=== PATIENT | male | born 1935 ===

== ENCOUNTER 2016-07-15 12:59 | Inpatient (IN) | payer MEDICAID ==
--- NOTE | 2016-07-15 13:49 | C.PDOC ---
History Of Present Illness 81 y/o male sent by [facility] for psych evaluation. He has medical history of Asthma, CHF, COPD, DM, HTN Thyroid dz. Pt was reported saying people are trying to kill him. Pt stating he wants to on evaluation in ED. He was recently evaluated at [facility] and transferred to the rehab. he was there less that 24 hours and was apparently transferred for agitation. Discussed with Dr Pitt who gave all the verbal orders on the transferred records but she states she has not seen him and does not know why he was transferred here. He tells me he is not suicidal and want to live. He answers questions appropriately and is quiet and cooperative in the ED. Poor historian. No other complaints at this time. Time Seen by Provider: 07/15/16 13:20 Chief Complaint (Nursing): Psychiatric Evaluation History Per: Patient Onset/Duration Of Symptoms: Hrs Current Symptoms Are (Timing): Still Present Severity: Mild Associated Symptoms: Suicidal Thoughts Involuntary Hold By: None Recent travel outside of the [place]: No Past Medical History Reviewed: Historical Data, Nursing Documentation, Vital Signs Vital Signs: Last Vital Signs Temp 97.8 F 07/15/16 16:07 Pulse 78 07/15/16 16:16 Resp 22 07/15/16 16:16 BP 124/62 07/15/16 16:16 Pulse Ox 96 07/15/16 16:16 - Medical History PMH: Arthritis, Asthma, CHF, COPD, Depression, HTN Other PMH: Thyroid Dz Surgical History: Appendectomy Family History: States: Unknown Family Hx - Social History Hx Tobacco Use: No Hx Alcohol Use: No Hx Substance Use: No Review Of Systems Constitutional: Negative for: Fever Cardiovascular: Negative for: Chest Pain Respiratory: Negative for: Shortness of Breath Gastrointestinal: Negative for: Vomiting Psych: Positive for: Suicidal ideation Physical Exam - Physical Exam Appears: Non-toxic, No Acute Distress, Other (cachectic) Skin: Warm, Dry, No Rash Head: Atraumatic, Normacephalic Neck: Normal, Normal ROM, Supple Chest: Symmetrical Cardiovascular: Rhythm Regular, No Murmur Respiratory: Normal Breath Sounds, No Rales, No Rhonchi, No Wheezing Gastrointestinal/Abdominal: Normal Exam, Soft, No Tenderness Extremity: Bilateral: Atraumatic Neurological/Psych: Oriented x3 ED Course And Treatment - Laboratory Results Result Diagrams: 07/15/16 14:04 07/15/16 14:04 Lab Interpretation: No Acute Changes Interpretation Of Abnormal: Glucose 41, repeated, 81. Patient remains awake and asymptomatic. Given food and drink. ECG: Interpreted By Me ECG Rhythm: L BBB O2 Sat by Pulse Oximetry: 96 (room air) Pulse Ox Interpretation: Normal Progress Note: Plan: EKG, UA, labs Reevaluation Time: 20:02 Reassessment Condition: Improved (Patient remains comfortable and cooperative in ED.) - Physician Consult Information Time Consulting Physician Contacted: 20:02 Physician Contacted: Perla Solis Outcome Of Conversation: Patient to be keept overnight on observation and arrangements made for follow up care and medication administration in the morning. Disposition - Disposition Disposition: HOSPITALIZED Disposition Time: 19:56 Condition: STABLE - Clinical Impression Clinical Impression: Diabetes, Cardiac disease, COPD (chronic obstructive pulmonary disease), Depression - Scribe Statement The provider has reviewed the documentation as recorded by the Anup Greer Provider Attestation: All medical record entries made by the Anup were at my direction and personally dictated by me. I have reviewed the chart and agree that the record accurately reflects my personal performance of the history, physical exam, medical decision making, and the department course for this patient. I have also personally directed, reviewed, and agree with the discharge instructions and disposition.
[2016-07-15 14:10] LABS: BASO % 0.6 % (0.0-2.0); EOS % 0.1 % (0.0-4.0); HEMATOCRIT 34.3 % (35.0-51.0); MEAN CELL VOLUME 84.3 fL (80.0-94.0); MEAN CORPUSCULAR HEMOGLOBIN 26.8 pg (27.0-31.0); MEAN CORPUSCULAR HGB CONC 31.8 g/dL (33.0-37.0); MEAN PLATELET VOLUME 8.4 fL (7.2-11.7); MONO # 0.4 K/uL (0.0-0.8); MONO % 4.7 % (0.0-10.0); RED CELL DISTRIBUTION WIDTH 20.3 % (11.5-14.5); WHITE BLOOD COUNT 7.6 K/uL (4.8-10.8)
[2016-07-15 14:16] LABS: CHLORIDE 101 mmol/L (98-107); SODIUM 136 mmol/L (132-148)
[2016-07-15 14:17] LABS: POTASSIUM 4.4 mmol/L (3.6-5.2)
[2016-07-15 14:18] LABS: GFR AFRICAN-AMERICAN > 60
[2016-07-15 14:19] LABS: ALB/GLOB RATIO 0.8 (1.0-2.1); ALKALINE PHOSPHATASE 56 U/L (38-126); ALT/SGPT 22 U/L (21-72); AST/SGOT 18 U/L (17-59); BILIRUBIN,TOTAL 0.6 mg/dL (0.2-1.3); BLOOD UREA NITROGEN 21 mg/dL (9-20); CARBON DIOXIDE 25 mmol/L (22-30)
[2016-07-15 14:20] LABS: ALCOHOL SERUM < 10 mg/dl (0-10); CALCIUM 8.6 mg/dl (8.6-10.4)
[2016-07-15 14:21] LABS: RBC URINE < 1 /hpf (0-3); URINE BILIRUBIN NEGATIVE (NEGATIVE); URINE BLOOD NEGATIVE (NEGATIVE); URINE COLOR Yellow (YELLOW); URINE GLUCOSE (UA) NORMAL (Normal); URINE KETONE NEGATIVE (NEGATIVE); URINE LEUKOCYTE ESTERASE NEG Leu/uL (Negative); URINE PROTEIN NEGATIVE (NEGATIVE); URINE UROBILINOGEN NORMAL mg/dL (0.2-1.0); WBC URINE 1 /hpf (0-5)
[2016-07-15 14:49] LABS: GLUCOSE,RANDOM 41 mg/dL (75-110)
[2016-07-16] MEDS: (Lantus) Insulin Glargine, Recombinant SC SCH ×3 (01:44→22:33)
[2016-07-16] MEDS: Albuterol-Ipratrop 3 mg / 0.5 (3 ml) UD INH SCH ×4 (03:02→20:47)
[2016-07-16] MEDS: Levothyroxine 25 MCG TAB PO SCH (06:10)
[2016-07-16] MEDS: (Novolog) Insulin Aspart, Recombinant 100 u/ml 10 ml vial SC SCH ×4 (07:12→22:00)
--- NOTE | 2016-07-16 09:42 | RAD ---
HISTORY: sob COMPARISON: Not available FINDINGS: LUNGS: Patchy opacity at right lung base. Diffuse nodular opacity throughout right lung. Few small nodular opacities in left upper lobe, possibly calcified suggesting old granulomatous disease. Consider further evaluation with computed tomography. PLEURA: Hazy opacity at right costophrenic angle suggests small pleural effusion. No left pleural effusion. No pneumothorax. CARDIOVASCULAR: Normal. OSSEOUS STRUCTURES: No significant abnormalities. VISUALIZED UPPER ABDOMEN: Normal. OTHER FINDINGS: None. IMPRESSION: Patchy opacity at right base. Possible small right pleural effusion. Nodular opacity throughout right lung. Probable calcified granulomas left upper lobe. Consider further evaluation with computed tomography.
[2016-07-16] MEDS: Pantoprazole 40 mg EC Tab PO SCH (09:45)
[2016-07-16] MEDS: Calcium Carbonate 500 mg Chewable Antacid Tab PO SCH ×2 (09:46→17:46)
[2016-07-16] MEDS ORDERED: Enoxaparin 40 mg Syringe SC SCH (10:00)
--- NOTE | 2016-07-16 10:16 | CP.PCM.HP ---
History of Present Illness - History of Present Illness History of Present Illness: 81 years old male patient with past medical history of asthma, CHF, COPD, hypertension transferred from long-term for psych evaluation. Patient was saying about trying to kill him. On ED evaluation patient states that he wants to . Patient denies hearing voices, racing thoughts, hallucination. Patient has complaint of fatigue, decreased concentration. When questioned about suicidal ideation patient states he was never suicidal. No any past psychiatric hospitalization No any other active complaints. Present on Admission - Present on Admission Any Indicators Present on Admission: No Past Patient History - Past Medical History & Family History Past Medical History?: Yes - Past Social History Smoking Status: Unknown If Ever Smoked - CARDIAC Hx Congestive Heart Failure: Yes Hx Hypertension: Yes - PULMONARY Hx Asthma: Yes Hx Chronic Obstructive Pulmonary Disease (COPD): Yes - NEUROLOGICAL Hx Alzheimer's Disease: Yes Hx Dementia: Yes - ENDOCRINE/METABOLIC Hx Diabetes Mellitus Type 2: Yes Hx Hypothyroidism: Yes - MUSCULOSKELETAL/RHEUMATOLOGICAL Hx Arthritis: Yes Hx Falls: No - PSYCHIATRIC Hx Depression: Yes Hx Substance Use: No - SURGICAL HISTORY Hx Appendectomy: Yes - ANESTHESIA Hx Anesthesia: Yes Hx Anesthesia Reactions: No Hx Malignant Hyperthermia: No Has any member of the family had a problem w/ anesthesia?: No Meds Allergies/Adverse Reactions: Allergies Allergy/AdvReac Type Severity Reaction Status Date / Time No Known Allergies Allergy Unverified 07/15/16 13:18 Physical Exam - Constitutional Appears: Well - Head Exam Head Exam: ATRAUMATIC, NORMAL INSPECTION, NORMOCEPHALIC - Eye Exam Eye Exam: EOMI, Normal appearance, PERRL Pupil Exam: NORMAL ACCOMODATION, PERRL - ENT Exam ENT Exam: Mucous Membranes Moist, Normal Exam - Neck Exam Neck exam: Positive for: Normal Inspection - Respiratory Exam Respiratory Exam: Decreased Breath Sounds - Cardiovascular Exam Cardiovascular Exam: REGULAR RHYTHM, +S1, +S2 - GI/Abdominal Exam GI & Abdominal Exam: Diminished Bowel Sounds, Soft - Rectal Exam Rectal Exam: Deferred Results - Vital Signs Recent Vital Signs: Last Vital Signs Temp 97.5 F L 07/16/16 08:00 Pulse 87 07/16/16 08:00 Resp 20 07/16/16 08:00 BP 126/71 07/16/16 08:00 Pulse Ox 96 07/16/16 08:00 - Labs Result Diagrams: 10/28/16 06:40 10/28/16 06:36 Labs: Laboratory Results - last 24 hr 07/16/16 07/16/16 07/16/16 02:00 06:10 06:32 POC Glucose (mg/dL) 57 L 71 Total Creatine Kinase 39 L CK-MB (Mass) 1.55 Troponin I, Quant 0.0440 Assessment & Plan (1) Abnormal CXR (chest x-ray) Status: Acute (2) COPD (chronic obstructive pulmonary disease) Status: Acute (3) COPD exacerbation Status: Acute (4) Cardiac disease Status: Acute (5) Compression fracture of L2 Status: Acute (6) Depression Status: Acute (7) Diabetes Status: Acute - Assessment and Plan (Free Text) Plan: meds and labs reviewed psych consult antidepressants social work referral duoneb asp eliquis dvt px accucheck
--- NOTE | 2016-07-16 14:22 | CP.PCM.PN ---
Subjective - Date & Time of Evaluation Date of Evaluation: 07/16/16 Time of Evaluation: 09:00 - Subjective Subjective: PGY2 on medicine Dr. Solis service: Pt seen and examined at bedside this morning. Per RN, pt refused telemetry and one set of JAREK overnight. Pt also refuse to recheck fingerstick after given orange juice for sugar of 57. Pt currently has no complaints and denied suicidal ideation. Pt is poor historian and does not know why he is on certain medications. Pt said he lives by himself in [place]. No other complaints at the moment. Objective - Vital Signs/Intake and Output Vital Signs (last 24 hours): Temp Pulse Resp BP Pulse Ox 97.5 F L 87 20 126/71 96 07/16/16 08:00 07/16/16 08:00 07/16/16 08:00 07/16/16 08:00 07/16/16 08:00 Intake and Output: 07/16/16 07/16/16 06:59 18:59 Output Total 150 Balance -150 - Medications Medications: Current Medications Albuterol/Ipratropium (Duoneb 3 Mg/0.5 Mg (3 Ml) Ud) 3 ml INH RQ6 [facility] Last Admin: 07/16/16 13:05 Dose: 3 ml Apixaban (Eliquis) 2.5 mg PO DAILY [facility] Last Admin: 07/16/16 09:45 Dose: 2.5 mg Aspirin (Aspirin Chewable) 81 mg PO DAILY [facility] Last Admin: 07/16/16 09:45 Dose: 81 mg Calcium Carbonate (Tums) 500 mg PO BID [facility] Last Admin: 07/16/16 09:46 Dose: 500 mg Enoxaparin Sodium (Lovenox) 40 mg SC DAILY [facility] Last Admin: 07/16/16 09:46 Dose: 40 mg Ferrous Sulfate (Feosol) 325 mg PO DAILY [facility] Last Admin: 07/16/16 09:45 Dose: 325 mg Insulin Aspart (Novolog) 0 unit SC ACHS [facility] PRN Reason: Protocol Last Admin: 07/16/16 11:45 Dose: Not Given Insulin Glargine (Lantus) 10 unit SC HS [facility] Last Admin: 07/16/16 01:44 Dose: Not Given Levothyroxine Sodium (Synthroid) 37.5 mcg PO DAILY@0630 [facility] Last Admin: 07/16/16 06:10 Dose: 37.5 mcg Metformin HCl (Glucophage) 1,000 mg PO BID [facility] Last Admin: 07/16/16 09:47 Dose: Not Given Mirtazapine (Remeron) 7.5 mg PO [facility] Last Admin: 07/16/16 01:54 Dose: 7.5 mg Pantoprazole Sodium (Protonix Ec Tab) 40 mg PO DAILY [facility] Last Admin: 07/16/16 09:45 Dose: 40 mg Quetiapine Fumarate (Seroquel) 25 mg PO HS [facility] Last Admin: 07/16/16 01:54 Dose: 25 mg Rosuvastatin Calcium (Crestor) 5 mg PO HS [facility] Last Admin: 07/16/16 01:54 Dose: 5 mg Tamsulosin HCl (Flomax) 0.4 mg PO DAILY [facility] Last Admin: 07/16/16 09:45 Dose: 0.4 mg Tiotropium [place] (Spiriva Inhalation Handihaler Device) 1 inhaler INH DAILY [facility] Tramadol HCl (Ultram) 50 mg PO Q12 PRN PRN Reason: Pain, moderate (4-7) Last Admin: 07/16/16 01:53 Dose: 50 mg - Constitutional Appears: Non-toxic, No Acute Distress, Cachectic, Chronically Ill - Head Exam Head Exam: NORMOCEPHALIC - Eye Exam Eye Exam: Normal appearance - Respiratory Exam Respiratory Exam: Clear to Ausculation Bilateral, NORMAL BREATHING PATTERN. absent: Rhonchi, Wheezes - Cardiovascular Exam Cardiovascular Exam: REGULAR RHYTHM, +S1, +S2. absent: Gallop, Rubs - GI/Abdominal Exam GI & Abdominal Exam: Soft, Normal Bowel Sounds. absent: Tenderness - Neurological Exam Neurological Exam: Alert, Awake, Oriented x3 - Psychiatric Exam Psychiatric exam: Normal Mood - Skin Skin Exam: Dry, Intact Assessment and Plan - Assessment and Plan (Free Text) Assessment: Depression Psych Dr. Bajwa consulted, help appreciated. Continue Remeron and Seroquel. DM RISS, accuchecks. Lantus 10U SC HS, Metformin Hypothyroid Continue synthroid. COPD Duoneb q6. Spiriva. Hx of cardiac disease Continue Eliquis, ASA, Crestor. Prophylactic measure Lovenox, Protonix. Social work referral.
--- NOTE | 2016-07-16 15:04 | PCM.PSYCH ---
Initial Psychiatric Evaluation - Initial Psychiatric Evaluation Type of Admission: Voluntary Legal Status: Capacity Chief Complaint (in patient's own words): I am feeling fine Patient's Reaction to Hospitalization: Patient admitted to [facility] from [facility] for COPD, hypertension, and depression. Psychiatry consulted for depression clearance and for suicidal ideation as per ED note. Patient is an 81 year old male who lives in a care home. Patient speaks primarily Indonesian. He states he was transferred from the care home to [facility] for psychiatric evaluation because he believes that the care home staff was trying to steal his belongings. He stated that "they said they lost my dentures and then they found them later." Patient denies hearing voices, seeing hallucinations, or having racing thoughts. He denies feeling like people are out to get him, stating, "I'm not important enough for that." Patient states his "sleep is bad", he has decreased energy, cannot concentrate and focus , has increased fatigue, and difficulty with movement, saying "it takes me 2 hours just to stand up." When questioned about suicidal ideation in the past and present, patient states, "7 people have already asked me this- I am not suicidal and I never was suicidal." Patient is coherent and able to converse with the plate worker with ease. Patient affect is normal, mood is normal. Patient denies any past psychiatric hospitalization or treatment, stating that he does not have any psychiatric issues and his worries stem from his physical health issues. Current Medications: Active Medications Generic Name Dose Route Start Last Admin Trade Name Urielq PRN Reason Stop Dose Admin Albuterol/Ipratropium 3 ml 07/16/16 02:00 07/16/16 13:05 Duoneb 3 Mg/0.5 Mg (3 Ml) Ud INH 3 ml RQ6 [facility] Administration Apixaban 2.5 mg 07/16/16 10:07/16/16 09:45 Eliquis PO 2.5 mg DAILY [facility] Administration Aspirin 81 mg 07/16/16 10:07/16/16 09:45 Aspirin Chewable PO 81 mg DAILY [facility] Administration Calcium Carbonate 500 mg 07/16/16 10:00 07/16/16 09:46 Tums PO 500 mg BID [facility] Administration Enoxaparin Sodium 40 mg 07/16/16 10:07/16/16 09:46 Lovenox SC 40 mg DAILY [facility] Administration Ferrous Sulfate 325 mg 07/16/16 10:00 07/16/16 09:45 Feosol PO 325 mg DAILY [facility] Administration Insulin Aspart 0 unit 07/16/16 07:30 07/16/16 11:45 Novolog SC Not Given ACHS [facility] Protocol Insulin Glargine 10 unit 07/15/16 23:45 07/16/16 01:44 Lantus SC Not Given HS [facility] Levothyroxine Sodium 37.5 mcg 07/16/16 06:30 07/16/16 06:10 Synthroid PO 37.5 mcg DAILY@0630 [facility] Administration Metformin HCl 1,000 mg 07/16/16 10:00 07/16/16 09:47 Glucophage PO Not Given BID [facility] Mirtazapine 7.5 mg 07/15/16 23:45 07/16/16 01:54 Remeron PO 7.5 mg HS [facility] Administration Pantoprazole Sodium 40 mg 07/16/16 10:00 07/16/16 09:45 Protonix Ec Tab PO 40 mg DAILY [facility] Administration Quetiapine Fumarate 25 mg 07/15/16 23:49 07/16/16 01:54 Seroquel PO 25 mg HS [facility] Administration Rosuvastatin Calcium 5 mg 07/15/16 23:45 07/16/16 01:54 Crestor PO 5 mg HS [facility] Administration Tamsulosin HCl 0.4 mg 07/16/16 10:00 07/16/16 09:45 Flomax PO 0.4 mg DAILY [facility] Administration Tiotropium [place] 1 inhaler 07/16/16 10:00 Spiriva Inhalation Handihaler Device INH DAILY [facility] Tramadol HCl 50 mg 07/15/16 23:45 07/16/16 01:53 Ultram PO 50 mg Q12 PRN Administration Pain, moderate (4-7) Past Psychiatric History - Past Psychiatric History Previous Treatment History: None Pertinent Medical Hx (Current Medical&Sleep Prob, Allergies): Allergies Allergy/AdvReac Type Severity Reaction Status Date / Time No Known Allergies Allergy Unverified 07/15/16 13:18 Albuterol/Ipratropium [Duoneb 3 MG/3 Ml-0.5 MG/3 Ml 3 Ml] 3 ml IH Q6H PRN Apixaban [Eliquis] 2.5 mg PO DAILY 07/15/16 Aspirin 81 mg PO DAILY 07/15/16 Calcium Carbonate [Tums] 500 mg PO BID 07/15/16 Ferrous Sulfate [Iron] 325 mg PO DAILY 07/15/16 Insulin Glargine, Recombina [Lantus] 10 unit SC HS 07/15/16 Levothyroxine [Synthroid] 37.5 mcg PO DAILY 07/15/16 MetFORMIN [glucOPHAGE] 1,000 mg PO BID 07/15/16 Mirtazapine 7.5 mg PO HS 07/15/16 Pantoprazole Sodium [Protonix] 40 mg PO DAILY 07/15/16 QUEtiapine [SEROquel] 25 mg PO HS 07/15/16 Simvastatin 20 mg PO DAILY 07/15/16 Tamsulosin [Flomax] 0.4 mg PO HS 07/15/16 Tiotropium [place] Inhaler [Spiriva Inhalation Handihaler Device] 1 inhaler INH DAILY 07/15/16 traMADol [Ultram] 50 mg PO Q12H PRN 07/15/16 Review of Systems - Review of Systems All systems: reviewed and no additional remarkable complaints except - Psychiatric Psychiatric: Depression, Difficulty Concentrating Mental Status Examination - Personal Presentation Personal Presentation: Looks older than stated age - Affect Affect: Constricted - Motor Activity Motor Activity: Calm - Reliability in Providing Information Reliability in Providing Information: Good - Speech Speech: Organized - Mood Mood: Neutral - Formal Thought Process Formal Thought Process: No Impairment - Obsessions/Compulsions Obsessions: No Compulsions: No - Cognitive Functions Orientation: Person, Place, Situation, Time Sensorium: Alert Attention/Concentration: Attentive Abstract Thinking: [place] Estimate of Intelligence: Below average Judgement: Intact, as evidence by: Good judgement, Intact, as evidence by: Insight regarding need for hospitalization - Strength & Assets Inventory Strength & Assets Inventory: Cooperative - Limitations Limitations: Living alone DSM 5 DX - DSM 5 DSM 5 Diagnosis: depressive disorder NOS - Recommended/Plan of Treatment Treatment Recommendations and Plan of Treatment: depressive disorder NOS patient is psychiatrically stable and can be discharge with plan to follow-up with outpatient clinic - Smoking Cessation Smoking Cessation Initiated: No
[2016-07-17] MEDS: Albuterol-Ipratrop 3 mg / 0.5 (3 ml) UD INH SCH ×4 (01:06→20:43)
[2016-07-17] MEDS: Levothyroxine 25 MCG TAB PO SCH (06:25)
[2016-07-17] MEDS: (Novolog) Insulin Aspart, Recombinant 100 u/ml 10 ml vial SC SCH ×4 (07:30→22:05)
[2016-07-17 07:39] LABS: BASO # 0.1 K/uL (0.0-0.2); BASO % 0.9 % (0.0-2.0); EOS # 0.1 K/uL (0.0-0.7); EOS % 0.8 % (0.0-4.0); LYMPH # 1.4 K/uL (1.0-4.3); LYMPH % 19.8 % (20.0-40.0); MEAN CELL VOLUME 84.3 fL (80.0-94.0); MEAN CORPUSCULAR HEMOGLOBIN 27.4 pg (27.0-31.0); MEAN CORPUSCULAR HGB CONC 32.4 g/dL (33.0-37.0); MEAN PLATELET VOLUME 8.2 fL (7.2-11.7); MONO # 0.5 K/uL (0.0-0.8); NRBC % 0.1 % (0.0-2.0); RED CELL DISTRIBUTION WIDTH 20.5 % (11.5-14.5); WHITE BLOOD COUNT 6.9 K/uL (4.8-10.8)
[2016-07-17 07:57] LABS: CHLORIDE 104 mmol/L (98-107); POTASSIUM 4.4 mmol/L (3.6-5.2); SODIUM 140 mmol/L (132-148)
[2016-07-17 07:59] LABS: ALB/GLOB RATIO 0.9 (1.0-2.1); ALKALINE PHOSPHATASE 56 U/L (38-126); ALT/SGPT 16 U/L (21-72); AST/SGOT 17 U/L (17-59); BILIRUBIN,TOTAL 0.7 mg/dL (0.2-1.3); BLOOD UREA NITROGEN 26 mg/dL (9-20); CARBON DIOXIDE 27 mmol/L (22-30); GFR AFRICAN-AMERICAN > 60; TOTAL PROTEIN 6.6 g/dL (6.3-8.3)
[2016-07-17 08:00] LABS: CALCIUM 8.7 mg/dl (8.6-10.4); GLUCOSE,RANDOM 93 mg/dL (75-110)
[2016-07-17] MEDS ORDERED: Pneumococcal 23-Valent Vaccine IM ONE (09:27)
[2016-07-17] MEDS ORDERED: Enoxaparin 40 mg Syringe SC SCH (10:00)
[2016-07-17] MEDS: Calcium Carbonate 500 mg Chewable Antacid Tab PO SCH ×2 (10:30→18:40)
[2016-07-17] MEDS: Pantoprazole 40 mg EC Tab PO SCH (10:30)
--- NOTE | 2016-07-17 14:44 | VASCLAB ---
PROCEDURE: Right Lower Extremity Venous Duplex Exam. HISTORY: suspected DVT PRIORS: None. TECHNIQUE: Right common femoral, femoral, popliteal and posterior tibial, peroneal and great saphenous veins were evaluated. Flow was assessed with color Doppler, compressibility, assessment of phasic flow and augmentation response. Report prepared by JOVI Villegas, RVT FINDINGS: RIGHT: 1. Common Femoral Vein: 1.1. Compressibility - Fully compressible: Thrombus - None: Flow - Phasic: Augmentation -Normal: Reflux - None. 2. Femoral Vein: 2.1. Compressibility - Fully compressible: Thrombus - None: Flow - Phasic: Augmentation -Normal: Reflux - None. 3. Popliteal Vein: 3.1. Compressibility - Fully compressible: Thrombus - None: Flow - Phasic: Augmentation -Normal: Reflux - None. 4. Posterior Tibial Vein: 4.1. Compressibility - : Thrombus - : Flow - : Augmentation -: Reflux - . 5. Peroneal Vein: 5.1. Compressibility - : Thrombus - : Flow - : Augmentation -: Reflux - . 6. Great Saphenous Vein: 6.1. Compressibility - : Thrombus -: Flow - : Augmentation - : Reflux - . OTHER FINDINGS: Patient refused to complete the study. IMPRESSION: No evidence of deep or superficial vein thrombosis of the right lower extremity with excellent venous flow. Normal valve function noted of the right side. Normal venous flow noted in the left common femoral vein.
--- NOTE | 2016-07-17 18:13 | CP.PCM.PN ---
Subjective - Date & Time of Evaluation Date of Evaluation: 07/17/16 Time of Evaluation: 08:40 - Subjective Subjective: clinically same Objective - Vital Signs/Intake and Output Vital Signs (last 24 hours): Temp Pulse Resp BP Pulse Ox 98.0 F 80 20 122/61 95 07/17/16 15:29 07/17/16 15:29 07/17/16 15:29 07/17/16 15:29 07/17/16 15:29 - Medications Medications: Current Medications Albuterol/Ipratropium (Duoneb 3 Mg/0.5 Mg (3 Ml) Ud) 3 ml INH RQ6 [facility] Last Admin: 07/17/16 13:13 Dose: Not Given Apixaban (Eliquis) 2.5 mg PO DAILY [facility] Last Admin: 07/17/16 10:30 Dose: Not Given Aspirin (Aspirin Chewable) 81 mg PO DAILY [facility] Last Admin: 07/17/16 10:29 Dose: Not Given Calcium Carbonate (Tums) 500 mg PO BID [facility] Last Admin: 07/17/16 10:30 Dose: Not Given Ferrous Sulfate (Feosol) 325 mg PO DAILY [facility] Last Admin: 07/17/16 10:30 Dose: Not Given Insulin Aspart (Novolog) 0 unit SC [facility] PRN Reason: Protocol Last Admin: 07/17/16 17:54 Dose: Not Given Insulin Glargine (Lantus) 10 unit SC [facility] Last Admin: 07/16/16 22:33 Dose: Not Given Levothyroxine Sodium (Synthroid) 37.5 mcg PO DAILY@0630 [facility] Last Admin: 07/17/16 06:25 Dose: Not Given Lorazepam (Ativan) 1 mg IVP Q4H PRN PRN Reason: Agitation Last Admin: 07/17/16 10:25 Dose: 1 mg Metformin HCl (Glucophage) 1,000 mg PO BID [facility] Last Admin: 07/17/16 10:30 Dose: Not Given Mirtazapine (Remeron) 7.5 mg PO [facility] Last Admin: 07/16/16 22:33 Dose: Not Given Pantoprazole Sodium (Protonix Ec Tab) 40 mg PO DAILY [facility] Last Admin: 07/17/16 10:30 Dose: Not Given Quetiapine Fumarate (Seroquel) 25 mg PO [facility] Last Admin: 07/16/16 22:33 Dose: Not Given Rosuvastatin Calcium (Crestor) 5 mg PO HS [facility] Last Admin: 07/16/16 22:08 Dose: 5 mg Tamsulosin HCl (Flomax) 0.4 mg PO DAILY [facility] Last Admin: 07/17/16 10:30 Dose: Not Given Tiotropium [place] (Spiriva Inhalation Handihaler Device) 1 inhaler INH DAILY [facility] Tramadol HCl (Ultram) 50 mg PO Q12 PRN PRN Reason: Pain, moderate (4-7) Last Admin: 07/16/16 01:53 Dose: 50 mg - Labs Labs: 07/17/16 07:31 07/17/16 07:31 - Constitutional Appears: Well - Head Exam Head Exam: ATRAUMATIC, NORMAL INSPECTION, NORMOCEPHALIC - Eye Exam Eye Exam: EOMI, Normal appearance, PERRL Pupil Exam: NORMAL ACCOMODATION, PERRL - ENT Exam ENT Exam: Mucous Membranes Moist, Normal Exam - Neck Exam Neck Exam: Full ROM, Normal Inspection. absent: Lymphadenopathy - Respiratory Exam Respiratory Exam: Decreased Breath Sounds - Cardiovascular Exam Cardiovascular Exam: REGULAR RHYTHM, +S1, +S2 - GI/Abdominal Exam GI & Abdominal Exam: Soft, Diminished Bowel Sounds - Rectal Exam Rectal Exam: Deferred Assessment and Plan (1) Abnormal CXR (chest x-ray) Status: Acute (2) COPD (chronic obstructive pulmonary disease) Status: Acute (3) COPD exacerbation Status: Acute (4) Cardiac disease Status: Acute (5) Compression fracture of L2 Status: Acute (6) Depression Status: Acute (7) Diabetes Status: Acute - Assessment and Plan (Free Text) Plan: karlos moseley mirtazapine lovenox duoneb spiriva
--- NOTE | 2016-07-17 18:25 | CP.PCM.PN ---
Subjective - Date & Time of Evaluation Date of Evaluation: 07/17/16 Time of Evaluation: 09:00 - Subjective Subjective: PGY2 on medicine Dr. Solis service: Pt seen and examined. Pt was sleeping and not answering questions, though exam was permitted. Per RN pt refuse blood draws and meds overnight and became agitated. Objective - Vital Signs/Intake and Output Vital Signs (last 24 hours): Temp Pulse Resp BP Pulse Ox 98.0 F 80 20 122/61 95 07/17/16 15:29 07/17/16 15:29 07/17/16 15:29 07/17/16 15:29 07/17/16 15:29 - Medications Medications: Current Medications Albuterol/Ipratropium (Duoneb 3 Mg/0.5 Mg (3 Ml) Ud) 3 ml INH RQ6 [facility] Last Admin: 07/17/16 13:13 Dose: Not Given Apixaban (Eliquis) 2.5 mg PO DAILY [facility] Last Admin: 07/17/16 10:30 Dose: Not Given Aspirin (Aspirin Chewable) 81 mg PO DAILY [facility] Last Admin: 07/17/16 10:29 Dose: Not Given Calcium Carbonate (Tums) 500 mg PO BID [facility] Last Admin: 07/17/16 10:30 Dose: Not Given Ferrous Sulfate (Feosol) 325 mg PO DAILY [facility] Last Admin: 07/17/16 10:30 Dose: Not Given Insulin Aspart (Novolog) 0 unit SC [facility] PRN Reason: Protocol Last Admin: 07/17/16 17:54 Dose: Not Given Insulin Glargine (Lantus) 10 unit SC [facility] Last Admin: 07/16/16 22:33 Dose: Not Given Levothyroxine Sodium (Synthroid) 37.5 mcg PO DAILY@0630 [facility] Last Admin: 07/17/16 06:25 Dose: Not Given Lorazepam (Ativan) 1 mg IVP Q4H PRN PRN Reason: Agitation Last Admin: 07/17/16 10:25 Dose: 1 mg Metformin HCl (Glucophage) 1,000 mg PO BID [facility] Last Admin: 07/17/16 10:30 Dose: Not Given Mirtazapine (Remeron) 7.5 mg PO HS [facility] Last Admin: 07/16/16 22:33 Dose: Not Given Pantoprazole Sodium (Protonix Ec Tab) 40 mg PO DAILY [facility] Last Admin: 07/17/16 10:30 Dose: Not Given Quetiapine Fumarate (Seroquel) 25 mg PO [facility] Last Admin: 07/16/16 22:33 Dose: Not Given Rosuvastatin Calcium (Crestor) 5 mg PO HS [facility] Last Admin: 07/16/16 22:08 Dose: 5 mg Tamsulosin HCl (Flomax) 0.4 mg PO DAILY [facility] Last Admin: 07/17/16 10:30 Dose: Not Given Tiotropium [place] (Spiriva Inhalation Handihaler Device) 1 inhaler INH DAILY [facility] Tramadol HCl (Ultram) 50 mg PO Q12 PRN PRN Reason: Pain, moderate (4-7) Last Admin: 07/16/16 01:53 Dose: 50 mg - Constitutional Appears: Non-toxic, No Acute Distress, Cachectic, Chronically Ill - Head Exam Head Exam: NORMOCEPHALIC - Eye Exam Eye Exam: Normal appearance Pupil Exam: NORMAL ACCOMODATION - Respiratory Exam Respiratory Exam: Clear to Ausculation Bilateral, NORMAL BREATHING PATTERN. absent: Wheezes - Cardiovascular Exam Cardiovascular Exam: REGULAR RHYTHM, +S1, +S2. absent: Gallop, Rubs - GI/Abdominal Exam GI & Abdominal Exam: Soft, Normal Bowel Sounds - Neurological Exam Neurological Exam: Alert, Awake, Oriented x3 - Psychiatric Exam Psychiatric exam: Flat Affect - Skin Skin Exam: Intact Assessment and Plan - Assessment and Plan (Free Text) Assessment: Depression Psych Dr. Bajwa consulted, help appreciated. Continue Remeron and Seroquel. Ativan 1mg IVP q4H PRN for agitation. DM RISS, accuchecks. Lantus 10U SC HS, Metformin Hypothyroid Continue synthroid. COPD Duoneb q6. Spiriva. Hx of cardiac disease Continue Eliquis, ASA, Crestor. Prophylactic measure Lovenox, Protonix. Social work referral. Management per Dr. Solis
--- NOTE | 2016-07-17 19:17 | CARD ---
APPROVED REPORT EKG Measurement Heart [id number] [place] [id number] [id number] <Conclusion> Normal sinus rhythm Left bundle branch block Abnormal ECG
--- NOTE | 2016-07-17 19:18 | CARD ---
APPROVED REPORT EKG Measurement Heart [id number] [place] 128P [id number] <Conclusion> Normal sinus rhythm Left bundle branch block Abnormal ECG
[2016-07-17] MEDS: (Lantus) Insulin Glargine, Recombinant SC SCH (22:26)
[2016-07-18] MEDS: Albuterol-Ipratrop 3 mg / 0.5 (3 ml) UD INH SCH ×4 (01:34→21:38)
[2016-07-18] MEDS: Levothyroxine 25 MCG TAB PO SCH (06:37)
[2016-07-18] MEDS ORDERED: Dextrose 50% SYRINGE Inj (50 ml) ONE (07:00)
[2016-07-18] MEDS ORDERED: Dextrose 50% SYRINGE Inj (50 ml) IV ONE (07:15)
[2016-07-18] MEDS: (Novolog) Insulin Aspart, Recombinant 100 u/ml 10 ml vial SC SCH ×4 (07:30→22:35)
[2016-07-18] MEDS: Pantoprazole 40 mg EC Tab PO SCH (11:29)
[2016-07-18] MEDS: Dextrose 5%/0.45% NS 1,000 ML IV SCH (11:30)
[2016-07-18] MEDS: Calcium Carbonate 500 mg Chewable Antacid Tab PO SCH ×2 (11:30→18:31)
--- NOTE | 2016-07-18 13:33 | CP.PCM.PN ---
Subjective - Date & Time of Evaluation Date of Evaluation: 07/18/16 Time of Evaluation: 10:00 - Subjective Subjective: clinically same Objective - Vital Signs/Intake and Output Vital Signs (last 24 hours): Temp Pulse Resp BP Pulse Ox 97.8 F 69 20 114/49 L 96 07/18/16 08:51 07/18/16 08:51 07/18/16 08:51 07/18/16 08:51 07/18/16 08:51 Intake and Output: 07/18/16 07/18/16 06:59 18:59 Intake Total 100 Balance 100 - Medications Medications: Current Medications Albuterol/Ipratropium (Duoneb 3 Mg/0.5 Mg (3 Ml) Ud) 3 ml INH RQ6 [facility] Last Admin: 07/18/16 07:40 Dose: Not Given Apixaban (Eliquis) 2.5 mg PO DAILY [facility] Last Admin: 07/18/16 11:29 Dose: Not Given Aspirin (Aspirin Chewable) 81 mg PO DAILY [facility] Last Admin: 07/18/16 11:29 Dose: Not Given Calcium Carbonate (Tums) 500 mg PO BID [facility] Last Admin: 07/18/16 11:30 Dose: Not Given Ferrous Sulfate (Feosol) 325 mg PO DAILY [facility] Last Admin: 07/18/16 11:29 Dose: Not Given Dextrose/Sodium Chloride (Dextrose 5%/0.45% Ns 1000 Ml) 1,000 mls @ 50 mls/hr IV .Q20H [facility] Last Admin: 07/18/16 11:30 Dose: 50 mls/hr Insulin Aspart (Novolog) 0 unit SC ACHS [facility] PRN Reason: Protocol Last Admin: 07/18/16 07:30 Dose: Not Given Insulin Glargine (Lantus) 10 unit SC HS [facility] Last Admin: 07/17/16 22:26 Dose: 10 units Levothyroxine Sodium (Synthroid) 37.5 mcg PO DAILY@0630 [facility] Last Admin: 07/18/16 06:37 Dose: Not Given Lorazepam (Ativan) 1 mg IVP Q4H PRN PRN Reason: Agitation Last Admin: 07/18/16 00:33 Dose: 1 mg Metformin HCl (Glucophage) 1,000 mg PO BID [facility] Last Admin: 07/18/16 11:29 Dose: Not Given Mirtazapine (Remeron) 7.5 mg PO [facility] Last Admin: 07/18/16 00:00 Dose: 7.5 mg Pantoprazole Sodium (Protonix Ec Tab) 40 mg PO DAILY [facility] Last Admin: 07/18/16 11:29 Dose: Not Given Quetiapine Fumarate (Seroquel) 25 mg PO HS [facility] Last Admin: 07/18/16 00:00 Dose: 25 mg Rosuvastatin Calcium (Crestor) 5 mg PO [facility] Last Admin: 07/17/16 22:29 Dose: Not Given Tamsulosin HCl (Flomax) 0.4 mg PO DAILY [facility] Last Admin: 07/18/16 11:29 Dose: Not Given Tiotropium [place] (Spiriva Inhalation Handihaler Device) 1 inhaler INH DAILY [facility] Tramadol HCl (Ultram) 50 mg PO Q12 PRN PRN Reason: Pain, moderate (4-7) Last Admin: 07/16/16 01:53 Dose: 50 mg - Constitutional Appears: Well - Head Exam Head Exam: ATRAUMATIC, NORMAL INSPECTION, NORMOCEPHALIC - Eye Exam Eye Exam: EOMI, Normal appearance, PERRL Pupil Exam: NORMAL ACCOMODATION, PERRL - ENT Exam ENT Exam: Mucous Membranes Moist, Normal Exam - Neck Exam Neck Exam: Full ROM, Normal Inspection. absent: Lymphadenopathy - Respiratory Exam Respiratory Exam: Decreased Breath Sounds - Cardiovascular Exam Cardiovascular Exam: REGULAR RHYTHM, +S1, +S2 - GI/Abdominal Exam GI & Abdominal Exam: Soft, Diminished Bowel Sounds - Rectal Exam Rectal Exam: Deferred Assessment and Plan (1) Abnormal CXR (chest x-ray) Status: Acute (2) COPD (chronic obstructive pulmonary disease) Status: Acute (3) COPD exacerbation Status: Acute (4) Cardiac disease Status: Acute (5) Compression fracture of L2 Status: Acute (6) Depression Status: Acute (7) Diabetes Status: Acute - Assessment and Plan (Free Text) Plan: Dr. jacques Christian; vinh accreece insulin child welfare social worker dvt px
[2016-07-18 17:10] LABS: BASO # 0.1 K/uL (0.0-0.2); BASO % 0.9 % (0.0-2.0); EOS % 0.6 % (0.0-4.0); HEMATOCRIT 32.7 % (35.0-51.0); LYMPH # 1.4 K/uL (1.0-4.3); LYMPH % 22.1 % (20.0-40.0); MEAN CELL VOLUME 84.5 fL (80.0-94.0); MEAN CORPUSCULAR HEMOGLOBIN 26.9 pg (27.0-31.0); MEAN CORPUSCULAR HGB CONC 31.8 g/dL (33.0-37.0); MEAN PLATELET VOLUME 8.4 fL (7.2-11.7); MONO # 0.5 K/uL (0.0-0.8); MONO % 7.9 % (0.0-10.0); RED CELL DISTRIBUTION WIDTH 20.6 % (11.5-14.5); WHITE BLOOD COUNT 6.4 K/uL (4.8-10.8)
[2016-07-18 17:30] LABS: CHLORIDE 105 mmol/L (98-107); SODIUM 136 mmol/L (132-148)
[2016-07-18 17:31] LABS: POTASSIUM 3.8 mmol/L (3.6-5.2)
[2016-07-18 17:33] LABS: ALB/GLOB RATIO 0.9 (1.0-2.1); ALKALINE PHOSPHATASE 48 U/L (38-126); AST/SGOT 31 U/L (17-59); BILIRUBIN,TOTAL 0.7 mg/dL (0.2-1.3); BLOOD UREA NITROGEN 19 mg/dL (9-20); CARBON DIOXIDE 22 mmol/L (22-30); GFR AFRICAN-AMERICAN > 60; GLUCOSE,RANDOM 81 mg/dL (75-110)
[2016-07-18 17:34] LABS: ALT/SGPT 14 U/L (21-72)
[2016-07-18] MEDS: (Lantus) Insulin Glargine, Recombinant SC SCH (22:31)
[2016-07-19] MEDS: Albuterol-Ipratrop 3 mg / 0.5 (3 ml) UD INH SCH ×2 (01:05→20:16)
[2016-07-19] MEDS: Dextrose 5%/0.45% NS 1,000 ML IV SCH (05:30)
[2016-07-19] MEDS: (Novolog) Insulin Aspart, Recombinant 100 u/ml 10 ml vial SC SCH ×4 (08:07→21:53)
[2016-07-19] MEDS: Calcium Carbonate 500 mg Chewable Antacid Tab PO SCH ×3 (11:41→18:36)
[2016-07-19] MEDS: Pantoprazole 40 mg EC Tab PO SCH ×2 (11:41→11:45)
--- NOTE | 2016-07-19 12:04 | CP.PCM.PN ---
Subjective - Date & Time of Evaluation Date of Evaluation: 07/19/16 Time of Evaluation: 10:25 - Subjective Subjective: clinically same Objective - Vital Signs/Intake and Output Vital Signs (last 24 hours): Temp Pulse Resp BP Pulse Ox 97.5 F L 69 20 104/51 L 95 07/19/16 07:57 07/19/16 07:57 07/19/16 07:57 07/19/16 07:57 07/19/16 07:57 - Medications Medications: Current Medications Albuterol/Ipratropium (Duoneb 3 Mg/0.5 Mg (3 Ml) Ud) 3 ml INH RQ6 [facility] Last Admin: 07/19/16 01:05 Dose: Not Given Aspirin (Aspirin Chewable) 81 mg PO DAILY [facility] Last Admin: 07/19/16 11:44 Dose: Not Given Calcium Carbonate (Tums) 500 mg PO BID [facility] Last Admin: 07/19/16 11:44 Dose: Not Given Ferrous Sulfate (Feosol) 325 mg PO DAILY [facility] Last Admin: 07/19/16 11:44 Dose: Not Given Dextrose/Sodium Chloride (Dextrose 5%/0.45% Ns 1000 Ml) 1,000 mls @ 50 mls/hr IV .Q20H [facility] Last Admin: 07/19/16 05:30 Dose: 50 mls/hr Insulin Aspart (Novolog) 0 unit SC [facility] PRN Reason: Protocol Last Admin: 07/19/16 08:07 Dose: Not Given Insulin Glargine (Lantus) 10 unit SC [facility] Last Admin: 07/18/16 22:31 Dose: Not Given Levothyroxine Sodium (Synthroid) 37.5 mcg PO DAILY@0630 [facility] Last Admin: 07/18/16 06:37 Dose: Not Given Lorazepam (Ativan) 1 mg IVP Q4H PRN PRN Reason: Agitation Last Admin: 07/19/16 03:21 Dose: 1 mg Metformin HCl (Glucophage) 1,000 mg PO BID [facility] Last Admin: 07/19/16 11:45 Dose: Not Given Mirtazapine (Remeron) 7.5 mg PO [facility] Last Admin: 07/18/16 22:43 Dose: 7.5 mg Pantoprazole Sodium (Protonix Ec Tab) 40 mg PO DAILY [facility] Last Admin: 07/19/16 11:45 Dose: Not Given Quetiapine Fumarate (Seroquel) 25 mg PO HS [facility] Last Admin: 07/18/16 22:43 Dose: 25 mg Rosuvastatin Calcium (Crestor) 5 mg PO [facility] Last Admin: 07/18/16 22:35 Dose: 5 mg Tamsulosin HCl (Flomax) 0.4 mg PO DAILY [facility] Last Admin: 07/19/16 11:44 Dose: Not Given Tiotropium [place] (Spiriva Inhalation Handihaler Device) 1 inhaler INH DAILY [facility] Last Admin: 07/19/16 11:45 Dose: Not Given Tramadol HCl (Ultram) 50 mg PO Q12 PRN PRN Reason: Pain, moderate (4-7) Last Admin: 07/16/16 01:53 Dose: 50 mg - Labs Labs: 07/18/16 17:04 07/18/16 17:04 - Constitutional Appears: Well - Head Exam Head Exam: ATRAUMATIC, NORMAL INSPECTION, NORMOCEPHALIC - Eye Exam Eye Exam: EOMI, Normal appearance, PERRL Pupil Exam: NORMAL ACCOMODATION, PERRL - ENT Exam ENT Exam: Mucous Membranes Moist, Normal Exam - Neck Exam Neck Exam: Full ROM, Normal Inspection. absent: Lymphadenopathy - Respiratory Exam Respiratory Exam: Decreased Breath Sounds - Cardiovascular Exam Cardiovascular Exam: REGULAR RHYTHM, +S1, +S2 - GI/Abdominal Exam GI & Abdominal Exam: Soft, Diminished Bowel Sounds - Rectal Exam Rectal Exam: Deferred Assessment and Plan (1) Abnormal CXR (chest x-ray) Status: Acute (2) COPD (chronic obstructive pulmonary disease) Status: Acute (3) COPD exacerbation Status: Acute (4) Cardiac disease Status: Acute (5) Compression fracture of L2 Status: Acute (6) Depression Status: Acute (7) Diabetes Status: Acute - Assessment and Plan (Free Text) Plan: jovi as orsdeered psych on board antidepressants jovi home meds blood sugar monitopring dvt px
[2016-07-19 19:35] LABS: BASO % 0.5 % (0.0-2.0); EOS # 0.1 K/uL (0.0-0.7); EOS % 0.9 % (0.0-4.0); HEMATOCRIT 31.7 % (35.0-51.0); LYMPH # 1.5 K/uL (1.0-4.3); LYMPH % 24.3 % (20.0-40.0); MEAN CELL VOLUME 84.5 fL (80.0-94.0); MEAN CORPUSCULAR HEMOGLOBIN 26.8 pg (27.0-31.0); MEAN CORPUSCULAR HGB CONC 31.8 g/dL (33.0-37.0); MEAN PLATELET VOLUME 8.1 fL (7.2-11.7); MONO # 0.7 K/uL (0.0-0.8); MONO % 10.5 % (0.0-10.0); NRBC % 0.1 % (0.0-2.0); RED CELL DISTRIBUTION WIDTH 20.7 % (11.5-14.5); WHITE BLOOD COUNT 6.3 K/uL (4.8-10.8)
[2016-07-19 19:44] LABS: CHLORIDE 103 mmol/L (98-107); POTASSIUM 3.6 mmol/L (3.6-5.2); SODIUM 137 mmol/L (132-148)
[2016-07-19 19:46] LABS: GFR AFRICAN-AMERICAN > 60
[2016-07-19 19:47] LABS: ALB/GLOB RATIO 0.9 (1.0-2.1); ALKALINE PHOSPHATASE 48 U/L (38-126); ALT/SGPT 21 U/L (21-72); AST/SGOT 16 U/L (17-59); BILIRUBIN,TOTAL 0.7 mg/dL (0.2-1.3); BLOOD UREA NITROGEN 15 mg/dL (9-20); CARBON DIOXIDE 24 mmol/L (22-30); GLUCOSE,RANDOM 97 mg/dL (75-110)
[2016-07-19 19:48] LABS: CALCIUM 7.8 mg/dl (8.6-10.4)
[2016-07-19] MEDS: (Lantus) Insulin Glargine, Recombinant SC SCH (21:53)
[2016-07-20] MEDS: Dextrose 5%/0.45% NS 1,000 ML IV SCH ×3 (01:24→22:13)
[2016-07-20] MEDS: Albuterol-Ipratrop 3 mg / 0.5 (3 ml) UD INH SCH ×4 (01:56→19:18)
[2016-07-20] MEDS: Levothyroxine 25 MCG TAB PO SCH ×3 (06:23→06:25)
--- NOTE | 2016-07-20 08:55 | CP.PCM.PN ---
Subjective - Date & Time of Evaluation Date of Evaluation: 07/20/16 Time of Evaluation: 09:00 - Subjective Subjective: Dr. Solis, note: Patient seen and examined in room. Patient is nonverbal. No acute overnight events per nursing staff. Objective - Vital Signs/Intake and Output Vital Signs (last 24 hours): Temp Pulse Resp BP Pulse Ox 98.0 F 58 L 20 105/60 96 07/20/16 07:22 07/20/16 07:22 07/20/16 07:22 07/20/16 07:22 07/20/16 07:22 Intake and Output: 07/20/16 07/20/16 06:59 18:59 Intake Total 850 Balance 850 - Medications Medications: Current Medications Albuterol/Ipratropium (Duoneb 3 Mg/0.5 Mg (3 Ml) Ud) 3 ml INH RQ6 [facility] Last Admin: 07/20/16 07:54 Dose: Not Given Aspirin (Aspirin Chewable) 81 mg PO DAILY [facility] Last Admin: 07/19/16 11:44 Dose: Not Given Calcium Carbonate (Tums) 500 mg PO BID [facility] Last Admin: 07/19/16 18:36 Dose: Not Given Ferrous Sulfate (Feosol) 325 mg PO DAILY [facility] Last Admin: 07/19/16 11:44 Dose: Not Given Dextrose/Sodium Chloride (Dextrose 5%/0.45% Ns 1000 Ml) 1,000 mls @ 50 mls/hr IV .Q20H [facility] Last Admin: 07/20/16 06:52 Dose: Not Given Insulin Aspart (Novolog) 0 unit SC ACHS [facility] PRN Reason: Protocol Last Admin: 07/19/16 21:53 Dose: Not Given Insulin Glargine (Lantus) 10 unit SC HS [facility] Last Admin: 07/19/16 21:53 Dose: Not Given Levothyroxine Sodium (Synthroid) 37.5 mcg PO DAILY@0630 [facility] Last Admin: 07/20/16 06:25 Dose: Not Given Lorazepam (Ativan) 1 mg IVP Q4H PRN PRN Reason: Agitation Last Admin: 07/19/16 03:21 Dose: 1 mg Metformin HCl (Glucophage) 1,000 mg PO BID [facility] Last Admin: 07/19/16 18:36 Dose: Not Given Mirtazapine (Remeron) 7.5 mg PO HS [facility] Last Admin: 07/19/16 21:54 Dose: Not Given Pantoprazole Sodium (Protonix Ec Tab) 40 mg PO DAILY [facility] Last Admin: 07/19/16 11:45 Dose: Not Given Quetiapine Fumarate (Seroquel) 25 mg PO HS [facility] Last Admin: 07/19/16 21:54 Dose: Not Given Rosuvastatin Calcium (Crestor) 5 mg PO HS [facility] Last Admin: 07/18/16 22:35 Dose: 5 mg Tamsulosin HCl (Flomax) 0.4 mg PO DAILY [facility] Last Admin: 07/19/16 11:44 Dose: Not Given Tiotropium [place] (Spiriva Inhalation Handihaler Device) 1 inhaler INH DAILY [facility] Last Admin: 07/19/16 11:45 Dose: Not Given Tramadol HCl (Ultram) 50 mg PO Q12 PRN PRN Reason: Pain, moderate (4-7) Last Admin: 07/20/16 05:05 Dose: 50 mg - Labs Labs: 07/19/16 19:28 07/19/16 19:28 - Constitutional Appears: Cachectic, Chronically Ill - Head Exam Head Exam: NORMAL INSPECTION - ENT Exam ENT Exam: Mucous Membranes Dry - Respiratory Exam Respiratory Exam: Clear to Ausculation Bilateral. absent: Rales, Rhonchi, Wheezes - Cardiovascular Exam Cardiovascular Exam: REGULAR RHYTHM, RRR, +S1, +S2. absent: Gallop, Rubs - GI/Abdominal Exam GI & Abdominal Exam: Soft, Normal Bowel Sounds. absent: Tenderness - Extremities Exam Extremities Exam: Normal Inspection. absent: Pedal Edema - Back Exam Back Exam: NORMAL INSPECTION - Psychiatric Exam Psychiatric exam: Normal Affect, Normal Mood - Skin Skin Exam: Normal Color Assessment and Plan - Assessment and Plan (Free Text) Assessment: Depression 5/6/ continue current management, add megace for appetite stimulant. Psych Dr. Bajwa consulted, help appreciated. Continue Remeron and Seroquel. Ativan 1mg IVP q4H PRN for agitation. DM RISS, accuchecks. Lantus 10U SC HS, Metformin Hypothyroid Continue synthroid. COPD Duoneb q6. Spiriva. Hx of cardiac disease Continue Eliquis, ASA, Crestor. Prophylactic measure eliquis, Protonix. Social work referral. Management per Dr. Solis
[2016-07-20] MEDS: Pantoprazole 40 mg EC Tab PO SCH (11:20)
[2016-07-20] MEDS: Calcium Carbonate 500 mg Chewable Antacid Tab PO SCH ×2 (11:21→20:11)
[2016-07-20] MEDS: (Novolog) Insulin Aspart, Recombinant 100 u/ml 10 ml vial SC SCH ×4 (11:22→22:16)
--- NOTE | 2016-07-20 15:50 | CP.PCM.PN ---
Subjective - Date & Time of Evaluation Date of Evaluation: 07/20/16 Time of Evaluation: 09:20 - Subjective Subjective: clinically same Objective - Vital Signs/Intake and Output Vital Signs (last 24 hours): Temp Pulse Resp BP Pulse Ox 98.0 F 58 L 20 105/60 96 07/20/16 07:22 07/20/16 07:22 07/20/16 07:22 07/20/16 07:22 07/20/16 07:22 Intake and Output: 07/20/16 07/20/16 06:59 18:59 Intake Total 850 Balance 850 - Medications Medications: Current Medications Albuterol/Ipratropium (Duoneb 3 Mg/0.5 Mg (3 Ml) Ud) 3 ml INH RQ6 [facility] Last Admin: 07/20/16 13:07 Dose: Not Given Apixaban (Eliquis) 2.5 mg PO DAILY [facility] Last Admin: 07/20/16 11:22 Dose: 2.5 mg Aspirin (Aspirin Chewable) 81 mg PO DAILY [facility] Last Admin: 07/20/16 11:20 Dose: 81 mg Calcium Carbonate (Tums) 500 mg PO BID [facility] Last Admin: 07/20/16 11:21 Dose: 500 mg Ferrous Sulfate (Feosol) 325 mg PO DAILY [facility] Last Admin: 07/20/16 11:20 Dose: 325 mg Dextrose/Sodium Chloride (Dextrose 5%/0.45% Ns 1000 Ml) 1,000 mls @ 50 mls/hr IV .Q20H [facility] Last Admin: 07/20/16 06:52 Dose: Not Given Insulin Aspart (Novolog) 0 unit SC ACHS [facility] PRN Reason: Protocol Last Admin: 07/20/16 12:27 Dose: 1 unit Insulin Glargine (Lantus) 10 unit SC HS [facility] Last Admin: 07/19/16 21:53 Dose: Not Given Levothyroxine Sodium (Synthroid) 37.5 mcg PO DAILY@0630 [facility] Last Admin: 07/20/16 06:25 Dose: Not Given Lorazepam (Ativan) 1 mg IVP Q4H PRN PRN Reason: Agitation Last Admin: 07/19/16 03:21 Dose: 1 mg Metformin HCl (Glucophage) 1,000 mg PO BID [facility] Last Admin: 07/20/16 11:21 Dose: 1,000 mg Mirtazapine (Remeron) 7.5 mg PO [facility] Last Admin: 07/19/16 21:54 Dose: Not Given Pantoprazole Sodium (Protonix Ec Tab) 40 mg PO DAILY [facility] Last Admin: 07/20/16 11:20 Dose: 40 mg Quetiapine Fumarate (Seroquel) 25 mg PO HS [facility] Last Admin: 07/19/16 21:54 Dose: Not Given Rosuvastatin Calcium (Crestor) 5 mg PO [facility] Last Admin: 07/18/16 22:35 Dose: 5 mg Tamsulosin HCl (Flomax) 0.4 mg PO DAILY [facility] Last Admin: 07/20/16 11:20 Dose: 0.4 mg Tiotropium [place] (Spiriva Inhalation Handihaler Device) 1 inhaler INH DAILY [facility] Last Admin: 07/20/16 11:23 Dose: 1 inhaler Tramadol HCl (Ultram) 50 mg PO Q12 PRN PRN Reason: Pain, moderate (4-7) Last Admin: 07/20/16 05:05 Dose: 50 mg - Labs Labs: 07/19/16 19:28 07/19/16 19:28 - Constitutional Appears: Well - Head Exam Head Exam: ATRAUMATIC, NORMAL INSPECTION, NORMOCEPHALIC - Eye Exam Eye Exam: EOMI, Normal appearance, PERRL Pupil Exam: NORMAL ACCOMODATION, PERRL - ENT Exam ENT Exam: Mucous Membranes Moist, Normal Exam - Neck Exam Neck Exam: Full ROM, Normal Inspection. absent: Lymphadenopathy - Respiratory Exam Respiratory Exam: Decreased Breath Sounds - Cardiovascular Exam Cardiovascular Exam: REGULAR RHYTHM, +S1, +S2 - GI/Abdominal Exam GI & Abdominal Exam: Soft, Diminished Bowel Sounds - Rectal Exam Rectal Exam: Deferred Assessment and Plan (1) Abnormal CXR (chest x-ray) Status: Acute (2) COPD (chronic obstructive pulmonary disease) Status: Acute (3) COPD exacerbation Status: Acute (4) Cardiac disease Status: Acute (5) Compression fracture of L2 Status: Acute (6) Depression Status: Acute (7) Diabetes Status: Acute - Assessment and Plan (Free Text) Plan: pt nonverbal Dr Bajwa on board labs reviewed accuchecks statin eliquis community mental health social worker adam
[2016-07-20] MEDS: (Lantus) Insulin Glargine, Recombinant SC SCH (22:13)
[2016-07-21] MEDS: Albuterol-Ipratrop 3 mg / 0.5 (3 ml) UD INH SCH (01:40)
[2016-07-21] MEDS: Levothyroxine 25 MCG TAB PO SCH (06:11)
[2016-07-21] MEDS: (Novolog) Insulin Aspart, Recombinant 100 u/ml 10 ml vial SC SCH ×4 (08:00→21:41)
--- NOTE | 2016-07-21 10:02 | CP.PCM.PN ---
Subjective - Date & Time of Evaluation Date of Evaluation: 07/21/16 Time of Evaluation: 10:15 - Subjective Subjective: Dr. Solis note: Patient seen in room, he is non verbal, but according to the sitter he has been eating more today than yesterday. No other events overnight per nursing staff. Objective - Vital Signs/Intake and Output Vital Signs (last 24 hours): Temp Pulse Resp BP Pulse Ox 96.7 F L 65 20 92/48 L 95 07/21/16 08:00 07/21/16 08:00 07/21/16 08:00 07/21/16 08:00 07/21/16 08:00 Intake and Output: 07/21/16 07/21/16 06:59 18:59 Intake Total 520 Balance 520 - Medications Medications: Current Medications Apixaban (Eliquis) 2.5 mg PO DAILY [facility] Last Admin: 07/20/16 11:22 Dose: 2.5 mg Aspirin (Aspirin Chewable) 81 mg PO DAILY [facility] Last Admin: 07/20/16 11:20 Dose: 81 mg Calcium Carbonate (Tums) 500 mg PO BID [facility] Last Admin: 07/20/16 20:11 Dose: Not Given Ferrous Sulfate (Feosol) 325 mg PO DAILY [facility] Last Admin: 07/20/16 11:20 Dose: 325 mg Dextrose/Sodium Chloride (Dextrose 5%/0.45% Ns 1000 Ml) 1,000 mls @ 50 mls/hr IV .Q20H [facility] Last Admin: 07/20/16 22:13 Dose: 50 mls/hr Insulin Aspart (Novolog) 0 unit SC ACHS [facility] PRN Reason: Protocol Last Admin: 07/21/16 08:00 Dose: Not Given Insulin Glargine (Lantus) 10 unit SC HS [facility] Last Admin: 07/20/16 22:13 Dose: 10 units Levothyroxine Sodium (Synthroid) 37.5 mcg PO DAILY@0630 [facility] Last Admin: 07/21/16 06:11 Dose: 37.5 mcg Lorazepam (Ativan) 1 mg IVP Q4H PRN PRN Reason: Agitation Last Admin: 07/20/16 20:11 Dose: 1 mg Megestrol Acetate (Megace) 40 mg PO DAILY [facility] Metformin HCl (Glucophage) 1,000 mg PO BID [facility] Last Admin: 07/20/16 18:34 Dose: 1,000 mg Mirtazapine (Remeron) 7.5 mg PO HS [facility] Last Admin: 07/20/16 22:16 Dose: Not Given Pantoprazole Sodium (Protonix Ec Tab) 40 mg PO DAILY [facility] Last Admin: 07/20/16 11:20 Dose: 40 mg Quetiapine Fumarate (Seroquel) 25 mg PO HS [facility] Last Admin: 07/20/16 22:16 Dose: Not Given Rosuvastatin Calcium (Crestor) 5 mg PO HS [facility] Last Admin: 07/20/16 22:16 Dose: Not Given Tamsulosin HCl (Flomax) 0.4 mg PO DAILY [facility] Last Admin: 07/20/16 11:20 Dose: 0.4 mg Tiotropium [place] (Spiriva Inhalation Handihaler Device) 1 inhaler INH DAILY [facility] Last Admin: 07/20/16 11:23 Dose: 1 inhaler Tramadol HCl (Ultram) 50 mg PO Q12 PRN PRN Reason: Pain, moderate (4-7) Last Admin: 07/20/16 05:05 Dose: 50 mg - Labs Labs: 07/19/16 19:28 07/19/16 19:28 - Constitutional Appears: Cachectic, Chronically Ill - Head Exam Head Exam: NORMAL INSPECTION - Eye Exam Eye Exam: Normal appearance - ENT Exam ENT Exam: Normal Exam - Respiratory Exam Respiratory Exam: Clear to Ausculation Bilateral. absent: Rhonchi, Wheezes - Cardiovascular Exam Cardiovascular Exam: REGULAR RHYTHM, RRR, +S1, +S2. absent: Gallop, Rubs - GI/Abdominal Exam GI & Abdominal Exam: Soft, Tenderness Assessment and Plan - Assessment and Plan (Free Text) Assessment: Depression 06/21: Patient is here pending placement. 06/20/ continue current management, add megace for appetite stimulant. Psych Dr. Bajwa consulted, help appreciated. Continue Remeron and Seroquel. Ativan 1mg IVP q4H PRN for agitation. DM RISS, accuchecks. Lantus 10U SC HS, Metformin Hypothyroid Continue synthroid. COPD Duoneb q6. Spiriva. Hx of cardiac disease Continue Eliquis, ASA, Crestor. Prophylactic measure eliquis, Protonix. Social work referral. Management per Dr. Solis
[2016-07-21] MEDS: Pantoprazole 40 mg EC Tab PO SCH (10:54)
[2016-07-21] MEDS: Calcium Carbonate 500 mg Chewable Antacid Tab PO SCH ×3 (10:54→21:40)
[2016-07-21 12:21] LABS: BASO % 0.8 % (0.0-2.0); EOS # 0.1 K/uL (0.0-0.7); EOS % 1.5 % (0.0-4.0); LYMPH # 1.5 K/uL (1.0-4.3); LYMPH % 28.3 % (20.0-40.0); MEAN CORPUSCULAR HEMOGLOBIN 27.1 pg (27.0-31.0); MEAN CORPUSCULAR HGB CONC 31.9 g/dL (33.0-37.0); MEAN PLATELET VOLUME 8.2 fL (7.2-11.7); MONO # 0.5 K/uL (0.0-0.8); MONO % 9.1 % (0.0-10.0); NRBC % 0.1 % (0.0-2.0); RED CELL DISTRIBUTION WIDTH 20.7 % (11.5-14.5); WHITE BLOOD COUNT 5.2 K/uL (4.8-10.8)
[2016-07-21 12:50] LABS: CHLORIDE 104 mmol/L (98-107); POTASSIUM 3.7 mmol/L (3.6-5.2); SODIUM 135 mmol/L (132-148)
[2016-07-21 12:52] LABS: GFR AFRICAN-AMERICAN > 60
[2016-07-21 12:53] LABS: ALB/GLOB RATIO 0.9 (1.0-2.1); ALKALINE PHOSPHATASE 50 U/L (38-126); ALT/SGPT 20 U/L (21-72); AST/SGOT 21 U/L (17-59); BILIRUBIN,TOTAL 0.7 mg/dL (0.2-1.3); BLOOD UREA NITROGEN 15 mg/dL (9-20); CARBON DIOXIDE 24 mmol/L (22-30); GLUCOSE,RANDOM 115 mg/dL (75-110); TOTAL PROTEIN 6.2 g/dL (6.3-8.3)
--- NOTE | 2016-07-21 16:01 | CP.PCM.PN ---
Subjective - Date & Time of Evaluation Date of Evaluation: 07/21/16 Time of Evaluation: 07:40 - Subjective Subjective: clinically same Objective - Vital Signs/Intake and Output Vital Signs (last 24 hours): Temp Pulse Resp BP Pulse Ox 96.7 F L 65 20 92/48 L 95 07/21/16 08:00 07/21/16 14:31 07/21/16 08:00 07/21/16 14:31 07/21/16 14:31 Intake and Output: 07/21/16 07/21/16 06:59 18:59 Intake Total 520 600 Balance 520 600 - Medications Medications: Current Medications Apixaban (Eliquis) 2.5 mg PO DAILY [facility] Last Admin: 07/21/16 10:53 Dose: 2.5 mg Aspirin (Aspirin Chewable) 81 mg PO DAILY [facility] Last Admin: 07/21/16 10:47 Dose: 81 mg Calcium Carbonate (Tums) 500 mg PO BID [facility] Last Admin: 07/21/16 10:54 Dose: 500 mg Ferrous Sulfate (Feosol) 325 mg PO DAILY [facility] Last Admin: 07/21/16 10:46 Dose: 325 mg Insulin Aspart (Novolog) 0 unit SC [facility] PRN Reason: Protocol Last Admin: 07/21/16 13:46 Dose: Not Given Insulin Glargine (Lantus) 10 unit SC [facility] Last Admin: 07/20/16 22:13 Dose: 10 units Levothyroxine Sodium (Synthroid) 37.5 mcg PO DAILY@0630 [facility] Last Admin: 07/21/16 06:11 Dose: 37.5 mcg Lorazepam (Ativan) 1 mg IVP Q4H PRN PRN Reason: Agitation Last Admin: 07/20/16 20:11 Dose: 1 mg Megestrol Acetate (Megace) 40 mg PO DAILY [facility] Last Admin: 07/21/16 13:47 Dose: 40 mg Metformin HCl (Glucophage) 1,000 mg PO BID [facility] Last Admin: 07/21/16 10:47 Dose: 1,000 mg Mirtazapine (Remeron) 7.5 mg PO HS [facility] Last Admin: 07/20/16 22:16 Dose: Not Given Pantoprazole Sodium (Protonix Ec Tab) 40 mg PO DAILY [facility] Last Admin: 07/21/16 10:54 Dose: 40 mg Quetiapine Fumarate (Seroquel) 25 mg PO HS [facility] Last Admin: 07/20/16 22:16 Dose: Not Given Rosuvastatin Calcium (Crestor) 5 mg PO HS [facility] Last Admin: 07/20/16 22:16 Dose: Not Given Tamsulosin HCl (Flomax) 0.4 mg PO DAILY [facility] Last Admin: 07/21/16 10:53 Dose: 0.4 mg Tiotropium [place] (Spiriva Inhalation Handihaler Device) 1 inhaler INH DAILY [facility] Last Admin: 07/20/16 11:23 Dose: 1 inhaler Tramadol HCl (Ultram) 50 mg PO Q12 PRN PRN Reason: Pain, moderate (4-7) Last Admin: 07/20/16 05:05 Dose: 50 mg - Labs Labs: 07/21/16 12:14 07/21/16 12:14 - Constitutional Appears: Well - Head Exam Head Exam: ATRAUMATIC, NORMAL INSPECTION, NORMOCEPHALIC - Eye Exam Eye Exam: EOMI, Normal appearance, PERRL Pupil Exam: NORMAL ACCOMODATION, PERRL - ENT Exam ENT Exam: Mucous Membranes Moist, Normal Exam - Neck Exam Neck Exam: Full ROM, Normal Inspection. absent: Lymphadenopathy - Respiratory Exam Respiratory Exam: Decreased Breath Sounds - Cardiovascular Exam Cardiovascular Exam: REGULAR RHYTHM, +S2 - GI/Abdominal Exam GI & Abdominal Exam: Soft, Diminished Bowel Sounds - Rectal Exam Rectal Exam: Deferred Assessment and Plan (1) Abnormal CXR (chest x-ray) Status: Acute (2) COPD (chronic obstructive pulmonary disease) Status: Acute (3) COPD exacerbation Status: Acute (4) Cardiac disease Status: Acute (5) Compression fracture of L2 Status: Acute (6) Depression Status: Acute (7) Diabetes Status: Acute - Assessment and Plan (Free Text) Plan: jovi same psych on board seroquel mirtazapine synthyroid social problems specialist
[2016-07-21] MEDS: (Lantus) Insulin Glargine, Recombinant SC SCH ×2 (21:41→21:48)
[2016-07-21] MEDS: guaiFENesin DM 200 mg-20 mg/10 ml UD PO SCH (22:59)
[2016-07-22] MEDS: Levothyroxine 25 MCG TAB PO SCH (05:58)
[2016-07-22] MEDS: (Novolog) Insulin Aspart, Recombinant 100 u/ml 10 ml vial SC SCH ×4 (07:43→22:30)
[2016-07-22] MEDS: Pantoprazole 40 mg EC Tab PO SCH (09:31)
[2016-07-22] MEDS: guaiFENesin DM 200 mg-20 mg/10 ml UD PO SCH ×3 (09:43→18:00)
[2016-07-22] MEDS: Calcium Carbonate 500 mg Chewable Antacid Tab PO SCH ×2 (09:43→18:19)
--- NOTE | 2016-07-22 14:18 | CP.PCM.PN ---
Subjective - Date & Time of Evaluation Date of Evaluation: 07/22/16 Time of Evaluation: 07:40 - Subjective Subjective: clinically same Objective - Vital Signs/Intake and Output Vital Signs (last 24 hours): Temp Pulse Resp BP Pulse Ox 97.3 F L 74 20 112/60 97 07/22/16 07:19 07/22/16 07:19 07/22/16 07:19 07/22/16 07:19 07/22/16 07:19 Intake and Output: 07/22/16 07/22/16 06:59 18:59 Intake Total 540 Balance 540 - Medications Medications: Current Medications Apixaban (Eliquis) 2.5 mg PO DAILY [facility] Last Admin: 07/22/16 09:44 Dose: Not Given Aspirin (Aspirin Chewable) 81 mg PO DAILY [facility] Last Admin: 07/22/16 09:31 Dose: Not Given Calcium Carbonate (Tums) 500 mg PO BID [facility] Last Admin: 07/22/16 09:43 Dose: Not Given Ferrous Sulfate (Feosol) 325 mg PO DAILY [facility] Last Admin: 07/22/16 09:31 Dose: 325 mg Guaifenesin/Dextromethorphan (Robitussin Dm) 10 ml PO TID [facility] Last Admin: 07/22/16 09:43 Dose: Not Given Insulin Aspart (Novolog) 0 unit SC [facility] PRN Reason: Protocol Last Admin: 07/22/16 11:48 Dose: Not Given Insulin Glargine (Lantus) 10 unit SC [facility] Last Admin: 07/21/16 21:48 Dose: Not Given Levothyroxine Sodium (Synthroid) 37.5 mcg PO DAILY@0630 [facility] Last Admin: 07/22/16 05:58 Dose: 37.5 mcg Lorazepam (Ativan) 1 mg IVP Q4H PRN PRN Reason: Agitation Last Admin: 07/20/16 20:11 Dose: 1 mg Megestrol Acetate (Megace) 40 mg PO DAILY [facility] Last Admin: 07/22/16 09:45 Dose: Not Given Metformin HCl (Glucophage) 1,000 mg PO BID [facility] Last Admin: 07/22/16 09:31 Dose: Not Given Mirtazapine (Remeron) 7.5 mg PO [facility] Last Admin: 07/21/16 21:40 Dose: 7.5 mg Pantoprazole Sodium (Protonix Ec Tab) 40 mg PO DAILY [facility] Last Admin: 07/22/16 09:31 Dose: 40 mg Quetiapine Fumarate (Seroquel) 25 mg PO [facility] Last Admin: 07/21/16 21:40 Dose: 25 mg Rosuvastatin Calcium (Crestor) 5 mg PO HS [facility] Last Admin: 07/21/16 21:42 Dose: 5 mg Tamsulosin HCl (Flomax) 0.4 mg PO DAILY [facility] Last Admin: 07/22/16 09:31 Dose: 0.4 mg Tiotropium [place] (Spiriva Inhalation Handihaler Device) 1 inhaler INH DAILY [facility] Last Admin: 07/20/16 11:23 Dose: 1 inhaler Tramadol HCl (Ultram) 50 mg PO Q12 PRN PRN Reason: Pain, moderate (4-7) Last Admin: 07/20/16 05:05 Dose: 50 mg - Labs Labs: 07/21/16 12:14 07/21/16 12:14 - Constitutional Appears: Well - Head Exam Head Exam: ATRAUMATIC, NORMAL INSPECTION, NORMOCEPHALIC - Eye Exam Eye Exam: EOMI, Normal appearance, PERRL Pupil Exam: NORMAL ACCOMODATION, PERRL - ENT Exam ENT Exam: Mucous Membranes Moist, Normal Exam - Neck Exam Neck Exam: Full ROM, Normal Inspection. absent: Lymphadenopathy - Respiratory Exam Respiratory Exam: Decreased Breath Sounds - GI/Abdominal Exam GI & Abdominal Exam: Soft, Diminished Bowel Sounds - Rectal Exam Rectal Exam: Deferred Assessment and Plan (1) Abnormal CXR (chest x-ray) Status: Acute (2) COPD (chronic obstructive pulmonary disease) Status: Acute (3) COPD exacerbation Status: Acute (4) Cardiac disease Status: Acute (5) Compression fracture of L2 Status: Acute (6) Depression Status: Acute (7) Diabetes Status: Acute - Assessment and Plan (Free Text) Plan: pt in confusion state labs reviewed psych on board alex flores
--- NOTE | 2016-07-22 18:44 | CP.PCM.PN ---
Subjective - Date & Time of Evaluation Date of Evaluation: 07/22/16 Time of Evaluation: 10:00 - Subjective Subjective: Dr. Bryan Solis note: Patient seen in room. Unable to obtain history due to patient's confusion and condition. Objective - Vital Signs/Intake and Output Vital Signs (last 24 hours): Temp Pulse Resp BP Pulse Ox 97.4 F L 64 20 96/55 L 95 07/22/16 15:33 07/22/16 16:08 07/22/16 15:33 07/22/16 16:08 07/22/16 16:08 Intake and Output: 07/22/16 07/22/16 06:59 18:59 Intake Total 540 Balance 540 - Medications Medications: Current Medications Apixaban (Eliquis) 2.5 mg PO DAILY [facility] Last Admin: 07/22/16 09:44 Dose: Not Given Aspirin (Aspirin Chewable) 81 mg PO DAILY [facility] Last Admin: 07/22/16 09:31 Dose: Not Given Calcium Carbonate (Tums) 500 mg PO BID [facility] Last Admin: 07/22/16 09:43 Dose: Not Given Ferrous Sulfate (Feosol) 325 mg PO DAILY [facility] Last Admin: 07/22/16 09:31 Dose: 325 mg Guaifenesin/Dextromethorphan (Robitussin Dm) 10 ml PO TID [facility] Last Admin: 07/22/16 14:57 Dose: Not Given Insulin Aspart (Novolog) 0 unit SC [facility] PRN Reason: Protocol Last Admin: 07/22/16 17:46 Dose: Not Given Insulin Glargine (Lantus) 10 unit SC HS [facility] Last Admin: 07/21/16 21:48 Dose: Not Given Levothyroxine Sodium (Synthroid) 37.5 mcg PO DAILY@0630 [facility] Last Admin: 07/22/16 05:58 Dose: 37.5 mcg Lorazepam (Ativan) 1 mg IVP Q4H PRN PRN Reason: Agitation Last Admin: 07/22/16 11:00 Dose: 1 mg Megestrol Acetate (Megace) 40 mg PO DAILY [facility] Last Admin: 07/22/16 09:45 Dose: Not Given Metformin HCl (Glucophage) 1,000 mg PO BID [facility] Last Admin: 07/22/16 17:46 Dose: 1,000 mg Mirtazapine (Remeron) 7.5 mg PO HS [facility] Last Admin: 07/21/16 21:40 Dose: 7.5 mg Pantoprazole Sodium (Protonix Ec Tab) 40 mg PO DAILY [facility] Last Admin: 07/22/16 09:31 Dose: 40 mg Quetiapine Fumarate (Seroquel) 25 mg PO HS [facility] Last Admin: 07/21/16 21:40 Dose: 25 mg Rosuvastatin Calcium (Crestor) 5 mg PO HS [facility] Last Admin: 07/21/16 21:42 Dose: 5 mg Tamsulosin HCl (Flomax) 0.4 mg PO DAILY [facility] Last Admin: 07/22/16 09:31 Dose: 0.4 mg Tiotropium [place] (Spiriva Inhalation Handihaler Device) 1 inhaler INH DAILY [facility] Last Admin: 07/20/16 11:23 Dose: 1 inhaler Tramadol HCl (Ultram) 50 mg PO Q12 PRN PRN Reason: Pain, moderate (4-7) Last Admin: 07/20/16 05:05 Dose: 50 mg - Labs Labs: 07/21/16 12:14 07/21/16 12:14 - Constitutional Appears: Non-toxic, No Acute Distress, Cachectic, Chronically Ill - Head Exam Head Exam: NORMAL INSPECTION - Eye Exam Eye Exam: Normal appearance Pupil Exam: NORMAL ACCOMODATION - ENT Exam ENT Exam: Mucous Membranes Moist - Respiratory Exam Respiratory Exam: Clear to Ausculation Bilateral. absent: Rhonchi, Wheezes - Cardiovascular Exam Cardiovascular Exam: REGULAR RHYTHM, RRR, +S1, +S2. absent: Gallop, Rubs - Extremities Exam Extremities Exam: Normal Inspection - Psychiatric Exam Psychiatric exam: Normal Affect, Normal Mood - Skin Skin Exam: Normal Color Assessment and Plan - Assessment and Plan (Free Text) Assessment: Depression 07/22: Patient is pending placement. 07/21 continue current management, add megace for appetite stimulant. Psych Dr. Bajwa consulted, help appreciated. Continue Remeron and Seroquel. Ativan 1mg IVP q4H PRN for agitation. DM RISS, accuchecks. Lantus 10U SC HS, Metformin Hypothyroid Continue synthroid. COPD Duoneb q6. Spiriva. Hx of cardiac disease Continue Eliquis, ASA, Crestor. Prophylactic measure eliquis, Protonix. Social work referral. Management per Dr. Solis
[2016-07-22] MEDS: (Lantus) Insulin Glargine, Recombinant SC SCH (21:18)
[2016-07-23] MEDS: Levothyroxine 25 MCG TAB PO SCH (05:29)
[2016-07-23] MEDS: (Novolog) Insulin Aspart, Recombinant 100 u/ml 10 ml vial SC SCH ×4 (07:30→21:38)
[2016-07-23] MEDS: Calcium Carbonate 500 mg Chewable Antacid Tab PO SCH ×2 (09:55→17:20)
[2016-07-23] MEDS: guaiFENesin DM 200 mg-20 mg/10 ml UD PO SCH ×3 (09:56→17:20)
[2016-07-23] MEDS: Pantoprazole 40 mg EC Tab PO SCH (10:34)
[2016-07-23 11:53] LABS: BASO % 0.6 % (0.0-2.0); EOS # 0.1 K/uL (0.0-0.7); EOS % 1.4 % (0.0-4.0); HEMATOCRIT 33.3 % (35.0-51.0); LYMPH % 32.3 % (20.0-40.0); MEAN CELL VOLUME 84.4 fL (80.0-94.0); MEAN CORPUSCULAR HEMOGLOBIN 26.7 pg (27.0-31.0); MEAN CORPUSCULAR HGB CONC 31.7 g/dL (33.0-37.0); MEAN PLATELET VOLUME 7.9 fL (7.2-11.7); MONO # 0.5 K/uL (0.0-0.8); MONO % 8.5 % (0.0-10.0); NRBC % 0.2 % (0.0-2.0); RED CELL DISTRIBUTION WIDTH 20.8 % (11.5-14.5); WHITE BLOOD COUNT 6.3 K/uL (4.8-10.8)
[2016-07-23 12:03] LABS: CHLORIDE 104 mmol/L (98-107)
[2016-07-23 12:04] LABS: POTASSIUM 3.9 mmol/L (3.6-5.2); SODIUM 136 mmol/L (132-148)
[2016-07-23 12:07] LABS: ALB/GLOB RATIO 0.8 (1.0-2.1); ALKALINE PHOSPHATASE 50 U/L (38-126); ALT/SGPT 21 U/L (21-72); AST/SGOT 25 U/L (17-59); BILIRUBIN,TOTAL 1.1 mg/dL (0.2-1.3); BLOOD UREA NITROGEN 14 mg/dL (9-20); CALCIUM 8.2 mg/dl (8.6-10.4); CARBON DIOXIDE 24 mmol/L (22-30); GFR AFRICAN-AMERICAN > 60; GLUCOSE,RANDOM 218 mg/dL (75-110)
--- NOTE | 2016-07-23 14:45 | CP.PCM.PN ---
<Nanette Regan - Last Filed: 07/23/16 14:41> Subjective - Date & Time of Evaluation Date of Evaluation: 07/23/16 Time of Evaluation: 09:35 - Subjective Subjective: PGY2 Medicine Note - Dr. Loren Solis's service: Patient seen and examined at bedside this AM. Patient reports 2 months of chest pain. Unable to obtain other information due to language barrier and confusion. Objective - Vital Signs/Intake and Output Vital Signs (last 24 hours): Temp Pulse Resp BP Pulse Ox 97.6 F 73 19 112/55 L 96 07/23/16 08:20 07/23/16 08:20 07/23/16 08:20 07/23/16 08:20 07/23/16 08:20 Intake and Output: 07/23/16 07/23/16 06:59 18:59 Intake Total 320 Output Total 300 Balance 20 - Medications Medications: Current Medications Aspirin (Aspirin Chewable) 81 mg PO DAILY [facility] Last Admin: 07/23/16 09:55 Dose: 81 mg Calcium Carbonate (Tums) 500 mg PO BID [facility] Last Admin: 07/23/16 09:55 Dose: 500 mg Ferrous Sulfate (Feosol) 325 mg PO DAILY [facility] Last Admin: 07/23/16 10:32 Dose: 325 mg Guaifenesin/Dextromethorphan (Robitussin Dm) 10 ml PO TID [facility] Last Admin: 07/23/16 13:56 Dose: 10 ml Insulin Aspart (Novolog) 0 unit SC [facility] PRN Reason: Protocol Last Admin: 07/23/16 12:31 Dose: 2 unit Insulin Glargine (Lantus) 10 unit SC HS [facility] Last Admin: 07/22/16 21:18 Dose: 10 units Levothyroxine Sodium (Synthroid) 37.5 mcg PO DAILY@0630 [facility] Last Admin: 07/23/16 05:29 Dose: 37.5 mcg Lorazepam (Ativan) 1 mg IVP Q4H PRN PRN Reason: Agitation Last Admin: 07/22/16 11:00 Dose: 1 mg Megestrol Acetate (Megace) 40 mg PO DAILY [facility] Last Admin: 07/23/16 10:33 Dose: 40 mg Metformin HCl (Glucophage) 1,000 mg PO BID [facility] Last Admin: 07/23/16 10:34 Dose: Not Given Mirtazapine (Remeron) 7.5 mg PO HS [facility] Last Admin: 07/22/16 21:17 Dose: 7.5 mg Pantoprazole Sodium (Protonix Ec Tab) 40 mg PO DAILY [facility] Last Admin: 07/23/16 10:34 Dose: 40 mg Quetiapine Fumarate (Seroquel) 25 mg PO HS [facility] Last Admin: 07/22/16 21:17 Dose: 25 mg Rosuvastatin Calcium (Crestor) 5 mg PO HS [facility] Last Admin: 07/22/16 21:18 Dose: 5 mg Tamsulosin HCl (Flomax) 0.4 mg PO DAILY [facility] Last Admin: 07/23/16 10:32 Dose: 0.4 mg Tiotropium [place] (Spiriva Inhalation Handihaler Device) 1 inhaler INH DAILY [facility] Last Admin: 07/20/16 11:23 Dose: 1 inhaler Tramadol HCl (Ultram) 50 mg PO Q12 PRN PRN Reason: Pain, moderate (4-7) Last Admin: 07/20/16 05:05 Dose: 50 mg - Labs Labs: 07/23/16 11:43 07/23/16 11:43 - Constitutional Appears: Non-toxic, No Acute Distress - Head Exam Head Exam: NORMAL INSPECTION - Eye Exam Eye Exam: EOMI - ENT Exam ENT Exam: Mucous Membranes Moist - Respiratory Exam Respiratory Exam: Clear to Ausculation Bilateral, NORMAL BREATHING PATTERN. absent: Rales, Rhonchi, Wheezes - Cardiovascular Exam Cardiovascular Exam: REGULAR RHYTHM, +S1, +S2. absent: Gallop, Rubs - GI/Abdominal Exam GI & Abdominal Exam: Soft, Normal Bowel Sounds. absent: Tenderness - Extremities Exam Extremities Exam: absent: Pedal Edema - Neurological Exam Neurological Exam: Alert, Awake - Skin Skin Exam: Normal Color, Warm Assessment and Plan - Assessment and Plan (Free Text) Assessment: Chest Pain F/U JAREK and EKG Cardio consult - Dr. Marinelli - f/u recs F/U CXR report Depression 07/23: Pending placement 07/22: Patient is pending placement. 07/21 continue current management, add megace for appetite stimulant. Psych Dr. Bajwa consulted, help appreciated. Continue Remeron and Seroquel. Ativan 1mg IVP q4H PRN for agitation. DM RISS, accuchecks. Lantus 10U SC HS, Metformin Hypothyroid Continue synthroid. COPD Duoneb q6. Spiriva. Hx of cardiac disease Continue Eliquis, ASA, Crestor. Prophylactic measure eliquis, Protonix. Social work referral. Management per Dr. Solis <Perla Solis S - Last Filed: 07/23/16 18:12> Objective - Vital Signs/Intake and Output Vital Signs (last 24 hours): Temp Pulse Resp BP Pulse Ox 97.8 F 70 20 102/75 96 07/23/16 16:00 07/23/16 17:18 07/23/16 16:00 07/23/16 17:18 07/23/16 17:18 Intake and Output: 07/23/16 07/23/16 06:59 18:59 Intake Total 320 Output Total 300 Balance 20 - Medications Medications: Current Medications Aspirin (Aspirin Chewable) 81 mg PO DAILY [facility] Last Admin: 07/23/16 09:55 Dose: 81 mg Calcium Carbonate (Tums) 500 mg PO BID [facility] Last Admin: 07/23/16 17:20 Dose: 500 mg Ferrous Sulfate (Feosol) 325 mg PO DAILY [facility] Last Admin: 07/23/16 10:32 Dose: 325 mg Guaifenesin/Dextromethorphan (Robitussin Dm) 10 ml PO TID [facility] Last Admin: 07/23/16 17:20 Dose: 10 ml Insulin Aspart (Novolog) 0 unit SC [facility] PRN Reason: Protocol Last Admin: 07/23/16 17:19 Dose: 6 unit Insulin Glargine (Lantus) 10 unit SC HS [facility] Last Admin: 07/22/16 21:18 Dose: 10 units Levothyroxine Sodium (Synthroid) 37.5 mcg PO DAILY@0630 [facility] Last Admin: 07/23/16 05:29 Dose: 37.5 mcg Lorazepam (Ativan) 1 mg IVP Q4H PRN PRN Reason: Agitation Last Admin: 07/22/16 11:00 Dose: 1 mg Megestrol Acetate (Megace) 40 mg PO DAILY [facility] Last Admin: 07/23/16 10:33 Dose: 40 mg Metformin HCl (Glucophage) 1,000 mg PO BID [facility] Last Admin: 07/23/16 17:18 Dose: 1,000 mg Mirtazapine (Remeron) 7.5 mg PO HS [facility] Last Admin: 07/22/16 21:17 Dose: 7.5 mg Pantoprazole Sodium (Protonix Ec Tab) 40 mg PO DAILY [facility] Last Admin: 07/23/16 10:34 Dose: 40 mg Quetiapine Fumarate (Seroquel) 25 mg PO HS [facility] Last Admin: 07/22/16 21:17 Dose: 25 mg Rosuvastatin Calcium (Crestor) 5 mg PO HS [facility] Last Admin: 07/22/16 21:18 Dose: 5 mg Tamsulosin HCl (Flomax) 0.4 mg PO DAILY [facility] Last Admin: 07/23/16 10:32 Dose: 0.4 mg Tiotropium [place] (Spiriva Inhalation Handihaler Device) 1 inhaler INH DAILY [facility] Last Admin: 07/20/16 11:23 Dose: 1 inhaler Tramadol HCl (Ultram) 50 mg PO Q12 PRN PRN Reason: Pain, moderate (4-7) Last Admin: 07/20/16 05:05 Dose: 50 mg - Labs Labs: 07/23/16 11:43 07/23/16 11:43 Attending/Attestation - Attestation I have personally seen and examined this patient.: Yes I have fully participated in the care of the patient.: Yes I have reviewed all pertinent clinical information, including history, physical exam and plan: Yes Notes (Text): 07/23/16 18:12 labs ok mulitple med jovi same stil lcnofused awaiting for dispositon med reviewed spoke to renal social worker today
--- NOTE | 2016-07-23 16:52 | RAD ---
HISTORY: rhonchi auscultated, patient complaining of rib pa COMPARISON: 07/15/2016 FINDINGS: LUNGS: Bilateral hyperaeration consistent with background COPD. Interstitial reticulo nodular pathology process suspect. Some of the nodular opacities appear hyperdense likely granulomatous disease in the mid to upper lung zones. There is some confluence of the and mild prominence to the right perihilar vascular markings some coalescent airspace opacity here is a consideration. The right costophrenic angle is blunted and elevated andry right pleural parenchymal thickening and scarring and some retraction here is suspect. Biapical pleural thickening similar-appearing nonspecific. PLEURA: As above. No pneumothorax CARDIOVASCULAR: Normal. OSSEOUS STRUCTURES: Generalized osteopenia, inferior thoracic spondylosis VISUALIZED UPPER ABDOMEN: Normal. OTHER FINDINGS: None. IMPRESSION: Chronic interstitial lung disease. COPD suspect. Probable granulomatous disease. Right inferolateral pleural thickening- some scarring, pleural thickening/even small pleural effusion are in the differential considerations here. No weight change 07/15/2016 apparent Interval increased nodular opacity in the right mid lung zone in the short interval time- a nodular infiltrate is 1 consideration. Consider follow-up CT chest imaging to further evaluate
[2016-07-23] MEDS ORDERED: (Novolog) Insulin Aspart, Recombinant 100 u/ml 10 ml vial SC ONE (17:00)
--- NOTE | 2016-07-23 18:13 | CP.PCM.PN ---
Subjective - Date & Time of Evaluation Date of Evaluation: 07/23/16 Time of Evaluation: 08:20 - Subjective Subjective: clinically same Objective - Vital Signs/Intake and Output Vital Signs (last 24 hours): Temp Pulse Resp BP Pulse Ox 97.8 F 70 20 102/75 96 07/23/16 16:00 07/23/16 17:18 07/23/16 16:00 07/23/16 17:18 07/23/16 17:18 Intake and Output: 07/23/16 07/23/16 06:59 18:59 Intake Total 320 Output Total 300 Balance 20 - Medications Medications: Current Medications Aspirin (Aspirin Chewable) 81 mg PO DAILY [facility] Last Admin: 07/23/16 09:55 Dose: 81 mg Calcium Carbonate (Tums) 500 mg PO BID [facility] Last Admin: 07/23/16 17:20 Dose: 500 mg Ferrous Sulfate (Feosol) 325 mg PO DAILY [facility] Last Admin: 07/23/16 10:32 Dose: 325 mg Guaifenesin/Dextromethorphan (Robitussin Dm) 10 ml PO TID [facility] Last Admin: 07/23/16 17:20 Dose: 10 ml Insulin Aspart (Novolog) 0 unit SC [facility] PRN Reason: Protocol Last Admin: 07/23/16 17:19 Dose: 6 unit Insulin Glargine (Lantus) 10 unit SC [facility] Last Admin: 07/22/16 21:18 Dose: 10 units Levothyroxine Sodium (Synthroid) 37.5 mcg PO DAILY@0630 [facility] Last Admin: 07/23/16 05:29 Dose: 37.5 mcg Lorazepam (Ativan) 1 mg IVP Q4H PRN PRN Reason: Agitation Last Admin: 07/22/16 11:00 Dose: 1 mg Megestrol Acetate (Megace) 40 mg PO DAILY [facility] Last Admin: 07/23/16 10:33 Dose: 40 mg Metformin HCl (Glucophage) 1,000 mg PO BID [facility] Last Admin: 07/23/16 17:18 Dose: 1,000 mg Mirtazapine (Remeron) 7.5 mg PO [facility] Last Admin: 07/22/16 21:17 Dose: 7.5 mg Pantoprazole Sodium (Protonix Ec Tab) 40 mg PO DAILY [facility] Last Admin: 07/23/16 10:34 Dose: 40 mg Quetiapine Fumarate (Seroquel) 25 mg PO HS [facility] Last Admin: 07/22/16 21:17 Dose: 25 mg Rosuvastatin Calcium (Crestor) 5 mg PO HS [facility] Last Admin: 07/22/16 21:18 Dose: 5 mg Tamsulosin HCl (Flomax) 0.4 mg PO DAILY [facility] Last Admin: 07/23/16 10:32 Dose: 0.4 mg Tiotropium [place] (Spiriva Inhalation Handihaler Device) 1 inhaler INH DAILY [facility] Last Admin: 07/20/16 11:23 Dose: 1 inhaler Tramadol HCl (Ultram) 50 mg PO Q12 PRN PRN Reason: Pain, moderate (4-7) Last Admin: 07/20/16 05:05 Dose: 50 mg - Labs Labs: 07/23/16 11:43 07/23/16 11:43 - Constitutional Appears: Well - Head Exam Head Exam: ATRAUMATIC, NORMAL INSPECTION, NORMOCEPHALIC - Eye Exam Eye Exam: EOMI, Normal appearance, PERRL Pupil Exam: NORMAL ACCOMODATION, PERRL - ENT Exam ENT Exam: Mucous Membranes Moist, Normal Exam - Neck Exam Neck Exam: Full ROM, Normal Inspection. absent: Lymphadenopathy - Respiratory Exam Respiratory Exam: Decreased Breath Sounds - Cardiovascular Exam Cardiovascular Exam: REGULAR RHYTHM, +S1, +S2 - GI/Abdominal Exam GI & Abdominal Exam: Soft, Diminished Bowel Sounds - Rectal Exam Rectal Exam: Deferred Assessment and Plan (1) Abnormal CXR (chest x-ray) Status: Acute (2) COPD (chronic obstructive pulmonary disease) Status: Acute (3) COPD exacerbation Status: Acute (4) Cardiac disease Status: Acute (5) Compression fracture of L2 Status: Acute (6) Depression Status: Acute (7) Diabetes Status: Acute - Assessment and Plan (Free Text) Plan: abs ok mulitple med jovi same stil lcnofused awaiting for dispositon med reviewed spoke to social work case manager today
--- NOTE | 2016-07-23 18:31 | CP.PCM.CON ---
History of Present Illness - History of Present Illness History of Present Illness: requested to see for cough, wheeze, sob, h/o copd ex smoker for 68 yrs x 1 ppd abn cxr with evidence of right infiltrate and possible small effusion Review of Systems - Review of Systems All systems: reviewed and no additional remarkable complaints except - Respiratory Respiratory: Dyspnea on Exertion, Wheezing, Excessive Mucous Production, Change in Mucous Color Past Patient History - Past Medical History & Family History Past Medical History?: Yes - Past Social History Smoking Status: Unknown If Ever Smoked - CARDIAC Hx Congestive Heart Failure: Yes Hx Hypertension: Yes - PULMONARY Hx Chronic Obstructive Pulmonary Disease (COPD): Yes - NEUROLOGICAL Hx Alzheimer's Disease: Yes Hx Dementia: Yes - ENDOCRINE/METABOLIC Hx Diabetes Mellitus Type 2: Yes Hx Hypothyroidism: Yes - MUSCULOSKELETAL/RHEUMATOLOGICAL Hx Arthritis: Yes - PSYCHIATRIC Hx Depression: Yes Hx Substance Use: No - SURGICAL HISTORY Hx Appendectomy: Yes - ANESTHESIA Hx Anesthesia: Yes Hx Anesthesia Reactions: No Hx Malignant Hyperthermia: No Has any member of the family had a problem w/ anesthesia?: No Meds Allergies/Adverse Reactions: Allergies Allergy/AdvReac Type Severity Reaction Status Date / Time No Known Allergies Allergy Unverified 07/15/16 13:18 - Medications Medications: Current Medications Aspirin (Aspirin Chewable) 81 mg PO DAILY [facility] Last Admin: 07/23/16 09:55 Dose: 81 mg Calcium Carbonate (Tums) 500 mg PO BID [facility] Last Admin: 07/23/16 17:20 Dose: 500 mg Ferrous Sulfate (Feosol) 325 mg PO DAILY [facility] Last Admin: 07/23/16 10:32 Dose: 325 mg Guaifenesin/Dextromethorphan (Robitussin Dm) 10 ml PO TID [facility] Last Admin: 07/23/16 17:20 Dose: 10 ml Insulin Aspart (Novolog) 0 unit SC ACHS [facility] PRN Reason: Protocol Last Admin: 07/23/16 17:19 Dose: 6 unit Insulin Glargine (Lantus) 10 unit SC HS [facility] Last Admin: 07/22/16 21:18 Dose: 10 units Levothyroxine Sodium (Synthroid) 37.5 mcg PO DAILY@0630 [facility] Last Admin: 07/23/16 05:29 Dose: 37.5 mcg Lorazepam (Ativan) 1 mg IVP Q4H PRN PRN Reason: Agitation Last Admin: 07/22/16 11:00 Dose: 1 mg Megestrol Acetate (Megace) 40 mg PO DAILY [facility] Last Admin: 07/23/16 10:33 Dose: 40 mg Metformin HCl (Glucophage) 1,000 mg PO BID [facility] Last Admin: 07/23/16 17:18 Dose: 1,000 mg Mirtazapine (Remeron) 7.5 mg PO [facility] Last Admin: 07/22/16 21:17 Dose: 7.5 mg Pantoprazole Sodium (Protonix Ec Tab) 40 mg PO DAILY [facility] Last Admin: 07/23/16 10:34 Dose: 40 mg Quetiapine Fumarate (Seroquel) 25 mg PO HS [facility] Last Admin: 07/22/16 21:17 Dose: 25 mg Rosuvastatin Calcium (Crestor) 5 mg PO [facility] Last Admin: 07/22/16 21:18 Dose: 5 mg Tamsulosin HCl (Flomax) 0.4 mg PO DAILY [facility] Last Admin: 07/23/16 10:32 Dose: 0.4 mg Tiotropium [place] (Spiriva Inhalation Handihaler Device) 1 inhaler INH DAILY [facility] Last Admin: 07/20/16 11:23 Dose: 1 inhaler Tramadol HCl (Ultram) 50 mg PO Q12 PRN PRN Reason: Pain, moderate (4-7) Last Admin: 07/20/16 05:05 Dose: 50 mg Physical Exam - Constitutional Appears: Chronically Ill - Head Exam Head Exam: ATRAUMATIC, NORMOCEPHALIC - Eye Exam Eye Exam: Normal appearance - ENT Exam ENT Exam: Mucous Membranes Moist - Respiratory Exam Respiratory Exam: Decreased Breath Sounds, Wheezes - Cardiovascular Exam Cardiovascular Exam: +S1, +S2 - GI/Abdominal Exam GI & Abdominal Exam: Normal Bowel Sounds - Rectal Exam Rectal Exam: Deferred - Neurological Exam Neurological exam: Alert, Oriented x3 - Psychiatric Exam Psychiatric exam: Normal Affect, Normal Mood - Skin Skin Exam: Intact Results - Vital Signs Recent Vital Signs: Last Vital Signs Temp 97.8 F 07/23/16 16:00 Pulse 70 07/23/16 17:18 Resp 20 07/23/16 16:00 BP 102/75 07/23/16 17:18 Pulse Ox 96 07/23/16 17:18 - Labs Result Diagrams: 07/23/16 11:43 07/23/16 11:43 Labs: Laboratory Results - last 24 hr 07/22/16 07/23/16 07/23/16 21:34 07:16 11:12 WBC RBC Hgb Hct MCV MCH MCHC RDW Plt Count MPV Neut % (Auto) Lymph % (Auto) [place] % (Auto) Eos % (Auto) Baso % (Auto) Neut # Lymph # [place] # Eos # Baso # Sodium Potassium Chloride Carbon Dioxide Anion Gap BUN Creatinine Est GFR ( Amer) Est GFR (Non-Af Amer) POC Glucose (mg/dL) 117 H 85 216 H Random Glucose Calcium Total Bilirubin AST ALT Alkaline Phosphatase Total Creatine Kinase CK-MB (Mass) Troponin I, Quant Total Protein Albumin Globulin Albumin/Globulin Ratio 07/23/16 07/23/16 07/23/16 11:43 11:43 15:06 WBC 6.3 RBC 3.95 L Hgb 10.6 L Hct 33.3 L MCV 84.4 MCH 26.7 L MCHC 31.7 L RDW 20.8 H Plt Count 338 MPV 7.9 Neut % (Auto) 57.2 Lymph % (Auto) 32.3 [place] % (Auto) 8.5 Eos % (Auto) 1.4 Baso % (Auto) 0.6 Neut # 3.6 Lymph # 2.0 [place] # 0.5 Eos # 0.1 Baso # 0.0 Sodium 136 Potassium 3.9 Chloride 104 Carbon Dioxide 24 Anion Gap 13 BUN 14 Creatinine 0.7 L Est GFR ( Amer) > 60 Est GFR (Non-Af Amer) > 60 POC Glucose (mg/dL) Random Glucose 218 H Calcium 8.2 L Total Bilirubin 1.1 AST 25 ALT 21 Alkaline Phosphatase 50 Total Creatine Kinase < 20 L CK-MB (Mass) 0.73 Troponin I, Quant < 0.0120 Total Protein 6.0 L Albumin 2.6 L Globulin 3.4 Albumin/Globulin Ratio 0.8 L 07/23/16 16:31 WBC RBC Hgb Hct MCV MCH MCHC RDW Plt Count MPV Neut % (Auto) Lymph % (Auto) [place] % (Auto) Eos % (Auto) Baso % (Auto) Neut # Lymph # [place] # Eos # Baso # Sodium Potassium Chloride Carbon Dioxide Anion Gap BUN Creatinine Est GFR ( Amer) Est GFR (Non-Af Amer) POC Glucose (mg/dL) 466 H* Random Glucose Calcium Total Bilirubin AST ALT Alkaline Phosphatase Total Creatine Kinase CK-MB (Mass) Troponin I, Quant Total Protein Albumin Globulin Albumin/Globulin Ratio Assessment & Plan (1) Abnormal CXR (chest x-ray) Status: Acute (2) COPD exacerbation Status: Acute
[2016-07-23] MEDS: Albuterol-Ipratrop 3 mg / 0.5 (3 ml) UD INH SCH (19:34)
--- NOTE | 2016-07-23 21:19 | CP.PCM.CON ---
History of Present Illness - History of Present Illness History of Present Illness: 81 y/o male sent by [facility] for psych evaluation. He has medical history of Asthma, CHF, COPD, DM, HTN Thyroid dz. Pt was reported saying people c/o dyspnea Chief Complaint (Nursing): Dyspnea History Per: Patient Past Medical History Reviewed: Historical Data, Nursing Documentation, Vital Signs - Medical History PMH: Arthritis, Asthma, CHF, COPD, Depression, HTN Other PMH: Thyroid Dz Surgical History: Appendectomy Family History: States: Unknown Family Hx - Social History Hx Tobacco Use: No Hx Alcohol Use: No Hx Substance Use: No Review Of Systems Constitutional: Negative for: Fever Cardiovascular: Negative for: Chest Pain Respiratory: Negative for: Shortness of Breath Gastrointestinal: Negative for: Vomiting Psych: Positive for: Suicidal ideation Physical Exam - Physical Exam Appears: Non-toxic, No Acute Distress, Other (cachectic) Skin: Warm, Dry, No Rash Head: Atraumatic, Normacephalic Neck: Normal, Normal ROM, Supple Chest: Symmetrical Cardiovascular: Rhythm Regular, No Murmur Respiratory: Normal Breath Sounds, No Rales, No Rhonchi, No Wheezing Gastrointestinal/Abdominal: Normal Exam, Soft, No Tenderness Extremity: Bilateral: Atraumatic Neurological/Psych: Oriented x3 Past Patient History - Past Medical History & Family History Past Medical History?: Yes - Past Social History Smoking Status: Unknown If Ever Smoked - CARDIAC Hx Congestive Heart Failure: Yes Hx Hypertension: Yes - PULMONARY Hx Chronic Obstructive Pulmonary Disease (COPD): Yes - NEUROLOGICAL Hx Alzheimer's Disease: Yes Hx Dementia: Yes - ENDOCRINE/METABOLIC Hx Diabetes Mellitus Type 2: Yes Hx Hypothyroidism: Yes - MUSCULOSKELETAL/RHEUMATOLOGICAL Hx Arthritis: Yes - PSYCHIATRIC Hx Depression: Yes Hx Substance Use: No - SURGICAL HISTORY Hx Appendectomy: Yes - ANESTHESIA Hx Anesthesia: Yes Hx Anesthesia Reactions: No Hx Malignant Hyperthermia: No Has any member of the family had a problem w/ anesthesia?: No Meds Allergies/Adverse Reactions: Allergies Allergy/AdvReac Type Severity Reaction Status Date / Time No Known Allergies Allergy Unverified 07/15/16 13:18 - Medications Medications: Current Medications Albuterol/Ipratropium (Duoneb 3 Mg/0.5 Mg (3 Ml) Ud) 3 ml INH RQ6 [facility] Last Admin: 07/23/16 19:34 Dose: 3 ml Aspirin (Aspirin Chewable) 81 mg PO DAILY [facility] Last Admin: 07/23/16 09:55 Dose: 81 mg Calcium Carbonate (Tums) 500 mg PO BID [facility] Last Admin: 07/23/16 17:20 Dose: 500 mg Ferrous Sulfate (Feosol) 325 mg PO DAILY [facility] Last Admin: 07/23/16 10:32 Dose: 325 mg Guaifenesin/Dextromethorphan (Robitussin Dm) 10 ml PO TID [facility] Last Admin: 07/23/16 17:20 Dose: 10 ml Ceftriaxone Sodium 1 gm/ (Sodium Chloride) 100 mls @ 100 mls/hr IVPB Q24H [facility] Insulin Aspart (Novolog) 0 unit SC ACHS [facility] PRN Reason: Protocol Last Admin: 07/23/16 17:19 Dose: 6 unit Insulin Glargine (Lantus) 10 unit SC HS [facility] Last Admin: 07/22/16 21:18 Dose: 10 units Levothyroxine Sodium (Synthroid) 37.5 mcg PO DAILY@0630 [facility] Last Admin: 07/23/16 05:29 Dose: 37.5 mcg Lorazepam (Ativan) 1 mg IVP Q4H PRN PRN Reason: Agitation Last Admin: 07/22/16 11:00 Dose: 1 mg Megestrol Acetate (Megace) 40 mg PO DAILY [facility] Last Admin: 07/23/16 10:33 Dose: 40 mg Metformin HCl (Glucophage) 1,000 mg PO BID [facility] Last Admin: 07/23/16 17:18 Dose: 1,000 mg Mirtazapine (Remeron) 7.5 mg PO HS [facility] Last Admin: 07/22/16 21:17 Dose: 7.5 mg Pantoprazole Sodium (Protonix Ec Tab) 40 mg PO DAILY [facility] Last Admin: 07/23/16 10:34 Dose: 40 mg Quetiapine Fumarate (Seroquel) 25 mg PO HS [facility] Last Admin: 07/22/16 21:17 Dose: 25 mg Rosuvastatin Calcium (Crestor) 5 mg PO HS [facility] Last Admin: 07/22/16 21:18 Dose: 5 mg Fluticasone/Salmeterol (Advair Diskus 250/50) 1 puff INH RQ12 [facility] Tamsulosin HCl (Flomax) 0.4 mg PO DAILY [facility] Last Admin: 07/23/16 10:32 Dose: 0.4 mg Tiotropium [place] (Spiriva Inhalation Handihaler Device) 1 inhaler INH DAILY [facility] Last Admin: 07/20/16 11:23 Dose: 1 inhaler Tramadol HCl (Ultram) 50 mg PO Q12 PRN PRN Reason: Pain, moderate (4-7) Last Admin: 07/20/16 05:05 Dose: 50 mg Results - Vital Signs Recent Vital Signs: Last Vital Signs Temp 97.8 F 07/23/16 16:00 Pulse 70 07/23/16 17:18 Resp 20 07/23/16 16:00 BP 102/75 07/23/16 17:18 Pulse Ox 96 07/23/16 17:18 - Labs Result Diagrams: 07/23/16 11:43 07/23/16 11:43 Labs: Laboratory Results - last 24 hr 07/22/16 07/23/16 07/23/16 21:34 07:16 11:12 WBC RBC Hgb Hct MCV MCH MCHC RDW Plt Count MPV Neut % (Auto) Lymph % (Auto) [place] % (Auto) Eos % (Auto) Baso % (Auto) Neut # Lymph # [place] # Eos # Baso # Sodium Potassium Chloride Carbon Dioxide Anion Gap BUN Creatinine Est GFR ( Amer) Est GFR (Non-Af Amer) POC Glucose (mg/dL) 117 H 85 216 H Random Glucose Calcium Total Bilirubin AST ALT Alkaline Phosphatase Total Creatine Kinase CK-MB (Mass) Troponin I, Quant Total Protein Albumin Globulin Albumin/Globulin Ratio 07/23/16 07/23/16 07/23/16 11:43 11:43 15:06 WBC 6.3 RBC 3.95 L Hgb 10.6 L Hct 33.3 L MCV 84.4 MCH 26.7 L MCHC 31.7 L RDW 20.8 H Plt Count 338 MPV 7.9 Neut % (Auto) 57.2 Lymph % (Auto) 32.3 [place] % (Auto) 8.5 Eos % (Auto) 1.4 Baso % (Auto) 0.6 Neut # 3.6 Lymph # 2.0 [place] # 0.5 Eos # 0.1 Baso # 0.0 Sodium 136 Potassium 3.9 Chloride 104 Carbon Dioxide 24 Anion Gap 13 BUN 14 Creatinine 0.7 L Est GFR ( Amer) > 60 Est GFR (Non-Af Amer) > 60 POC Glucose (mg/dL) Random Glucose 218 H Calcium 8.2 L Total Bilirubin 1.1 AST 25 ALT 21 Alkaline Phosphatase 50 Total Creatine Kinase < 20 L CK-MB (Mass) 0.73 Troponin I, Quant < 0.0120 Total Protein 6.0 L Albumin 2.6 L Globulin 3.4 Albumin/Globulin Ratio 0.8 L 07/23/16 16:31 WBC RBC Hgb Hct MCV MCH MCHC RDW Plt Count MPV Neut % (Auto) Lymph % (Auto) [place] % (Auto) Eos % (Auto) Baso % (Auto) Neut # Lymph # [place] # Eos # Baso # Sodium Potassium Chloride Carbon Dioxide Anion Gap BUN Creatinine Est GFR ( Amer) Est GFR (Non-Af Amer) POC Glucose (mg/dL) 466 H* Random Glucose Calcium Total Bilirubin AST ALT Alkaline Phosphatase Total Creatine Kinase CK-MB (Mass) Troponin I, Quant Total Protein Albumin Globulin Albumin/Globulin Ratio Assessment & Plan - Assessment and Plan (Free Text) Assessment: Dyspnea most likely due to COPD Still active wheezing Check ECHO [place] normal
[2016-07-23] MEDS: (Lantus) Insulin Glargine, Recombinant SC SCH (21:36)
[2016-07-23] MEDS: Fluticasone-Salmeterol 250-50mcg Diskus INH SCH (22:18)
[2016-07-24] MEDS: Albuterol-Ipratrop 3 mg / 0.5 (3 ml) UD INH SCH ×4 (01:36→19:14)
[2016-07-24] MEDS: Levothyroxine 25 MCG TAB PO SCH (05:47)
[2016-07-24 07:31] LABS: BASO % 0.6 % (0.0-2.0); EOS # 0.1 K/uL (0.0-0.7); EOS % 1.1 % (0.0-4.0); HEMATOCRIT 27.1 % (35.0-51.0); LYMPH # 1.9 K/uL (1.0-4.3); LYMPH % 30.6 % (20.0-40.0); MEAN CELL VOLUME 83.9 fL (80.0-94.0); MEAN CORPUSCULAR HEMOGLOBIN 27.7 pg (27.0-31.0); MEAN PLATELET VOLUME 8.1 fL (7.2-11.7); MONO # 0.6 K/uL (0.0-0.8); MONO % 10.2 % (0.0-10.0); RED CELL DISTRIBUTION WIDTH 20.7 % (11.5-14.5); WHITE BLOOD COUNT 6.4 K/uL (4.8-10.8)
[2016-07-24] MEDS: (Novolog) Insulin Aspart, Recombinant 100 u/ml 10 ml vial SC SCH ×4 (07:33→22:03)
[2016-07-24 07:48] LABS: CHLORIDE 104 mmol/L (98-107); POTASSIUM 3.6 mmol/L (3.6-5.2); SODIUM 137 mmol/L (132-148)
[2016-07-24 07:50] LABS: ALB/GLOB RATIO 0.8 (1.0-2.1); AST/SGOT 11 U/L (17-59); BILIRUBIN,TOTAL 0.3 mg/dL (0.2-1.3); CARBON DIOXIDE 24 mmol/L (22-30); GFR AFRICAN-AMERICAN > 60; TOTAL PROTEIN 5.5 g/dL (6.3-8.3)
[2016-07-24 07:51] LABS: ALKALINE PHOSPHATASE 39 U/L (38-126); ALT/SGPT 16 U/L (21-72); BLOOD UREA NITROGEN 24 mg/dL (9-20); CALCIUM 7.9 mg/dl (8.6-10.4); GLUCOSE,RANDOM 93 mg/dL (75-110)
[2016-07-24] MEDS: Fluticasone-Salmeterol 250-50mcg Diskus INH SCH ×2 (07:57→19:14)
[2016-07-24] MEDS: Pantoprazole 40 mg EC Tab PO SCH (10:24)
[2016-07-24] MEDS: guaiFENesin DM 200 mg-20 mg/10 ml UD PO SCH ×3 (10:25→17:34)
[2016-07-24] MEDS: Calcium Carbonate 500 mg Chewable Antacid Tab PO SCH ×2 (10:26→17:34)
--- NOTE | 2016-07-24 10:59 | CP.PCM.PN ---
Subjective - Date & Time of Evaluation Date of Evaluation: 07/24/16 Time of Evaluation: 07:40 - Subjective Subjective: clinically same Objective - Vital Signs/Intake and Output Vital Signs (last 24 hours): Temp Pulse Resp BP Pulse Ox 97.6 F 69 20 110/65 98 07/24/16 07:00 07/24/16 07:00 07/24/16 07:00 07/24/16 07:00 07/24/16 07:00 Intake and Output: 07/24/16 07/24/16 06:59 18:59 Intake Total 690 Balance 690 - Medications Medications: Current Medications Albuterol/Ipratropium (Duoneb 3 Mg/0.5 Mg (3 Ml) Ud) 3 ml INH RQ6 [facility] Last Admin: 07/24/16 07:57 Dose: 3 ml Aspirin (Aspirin Chewable) 81 mg PO DAILY [facility] Last Admin: 07/24/16 10:25 Dose: 81 mg Calcium Carbonate (Tums) 500 mg PO BID [facility] Last Admin: 07/24/16 10:26 Dose: 500 mg Ferrous Sulfate (Feosol) 325 mg PO DAILY [facility] Last Admin: 07/24/16 10:25 Dose: 325 mg Guaifenesin/Dextromethorphan (Robitussin Dm) 10 ml PO TID [facility] Last Admin: 07/24/16 10:25 Dose: 10 ml Ceftriaxone Sodium 1 gm/ (Sodium Chloride) 100 mls @ 100 mls/hr IVPB Q24H [facility] Last Admin: 07/23/16 21:35 Dose: 100 mls/hr Insulin Aspart (Novolog) 0 unit SC ACHS [facility] PRN Reason: Protocol Last Admin: 07/24/16 07:33 Dose: Not Given Insulin Glargine (Lantus) 10 unit SC HS [facility] Last Admin: 07/23/16 21:36 Dose: 10 units Levothyroxine Sodium (Synthroid) 37.5 mcg PO DAILY@0630 [facility] Last Admin: 07/24/16 05:47 Dose: 37.5 mcg Lorazepam (Ativan) 1 mg IVP Q4H PRN PRN Reason: Agitation Last Admin: 07/24/16 10:34 Dose: 1 mg Megestrol Acetate (Megace) 40 mg PO DAILY [facility] Last Admin: 07/24/16 10:25 Dose: 40 mg Metformin HCl (Glucophage) 1,000 mg PO BID [facility] Last Admin: 07/24/16 10:25 Dose: 1,000 mg Mirtazapine (Remeron) 7.5 mg PO [facility] Last Admin: 07/23/16 21:39 Dose: 7.5 mg Pantoprazole Sodium (Protonix Ec Tab) 40 mg PO DAILY [facility] Last Admin: 07/24/16 10:24 Dose: 40 mg Quetiapine Fumarate (Seroquel) 25 mg PO [facility] Last Admin: 07/23/16 21:39 Dose: 25 mg Rosuvastatin Calcium (Crestor) 5 mg PO HS [facility] Last Admin: 07/23/16 21:38 Dose: 5 mg Fluticasone/Salmeterol (Advair Diskus 250/50) 1 puff INH RQ12 [facility] Last Admin: 07/24/16 07:57 Dose: 1 puff Tamsulosin HCl (Flomax) 0.4 mg PO DAILY [facility] Last Admin: 07/24/16 10:25 Dose: 0.4 mg Tiotropium [place] (Spiriva Inhalation Handihaler Device) 1 inhaler INH DAILY [facility] Last Admin: 07/20/16 11:23 Dose: 1 inhaler Tramadol HCl (Ultram) 50 mg PO Q12 PRN PRN Reason: Pain, moderate (4-7) Last Admin: 07/20/16 05:05 Dose: 50 mg - Labs Labs: 07/24/16 07:07 07/24/16 07:07 - Constitutional Appears: Well - Head Exam Head Exam: ATRAUMATIC, NORMAL INSPECTION, NORMOCEPHALIC - Eye Exam Eye Exam: EOMI, Normal appearance, PERRL Pupil Exam: NORMAL ACCOMODATION, PERRL - ENT Exam ENT Exam: Mucous Membranes Moist, Normal Exam - Neck Exam Neck Exam: Full ROM, Normal Inspection. absent: Lymphadenopathy - Respiratory Exam Respiratory Exam: Decreased Breath Sounds - Cardiovascular Exam Cardiovascular Exam: REGULAR RHYTHM, +S1, +S2 - GI/Abdominal Exam GI & Abdominal Exam: Soft, Diminished Bowel Sounds - Rectal Exam Rectal Exam: Deferred Assessment and Plan (1) Abnormal CXR (chest x-ray) Status: Acute (2) COPD (chronic obstructive pulmonary disease) Status: Acute (3) COPD exacerbation Status: Acute (4) Cardiac disease Status: Acute (5) Compression fracture of L2 Status: Acute (6) Depression Status: Acute (7) Diabetes Status: Acute - Assessment and Plan (Free Text) Plan: labs reviewed jovi same still confused med reviewed cardio Dr Yves link consult social sciences chair
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
--- NOTE | 2016-07-24 13:22 | CT ---
PROCEDURE: CT Chest without contrast HISTORY: abn cxr COMPARISON: None. TECHNIQUE: Contiguous axial images were obtained through the chest without intravenous contrast enhancement. Sagittal and coronal reconstructions were performed. Radiation dose (DLP): 188.94 mGy-cm. This CT exam was performed using one or more of the following dose reduction techniques: Automated exposure control, adjustment of the mA and/or kV according to patient size, and/or use of iterative reconstruction technique. FINDINGS: LUNGS: Dependent consolidation in right lower lobe. Extensive fine nodular interstitial infiltrate in both lower lobes, nonspecific. Subpleural emphysema in both upper lobes. Mild centrilobular pulmonary emphysema. 7 mm irregular nodule left upper lobe (series 3, image 35). 9 mm left upper lobe nodule (image 39). Suspect small airways disease posterior right upper lobe. However, evaluation somewhat limited due to respiratory motion artifact. This is best demonstrated on series 3, image 39. Coarse nodular pleural-based calcification in left apex. Multiple left upper lobe nodular calcifications, likely granulomatous. MEDIASTINUM: Unremarkable thoracic aorta. No aneurysm. Mild cardiomegaly. Main pulmonary artery unremarkable. No vascular congestion. Few mildly enlarged pretracheal mediastinal nodes, up to 12 mm short axis, nonspecific. Shotty prevascular nodes. PLEURA: Bilateral mild apical pleural thickening, nonspecific. No pleural effusion or pneumothorax. BONES: No fracture. No destructive lesion. UPPER ABDOMEN: Left upper pole renal cyst, 2.9 cm. OTHER FINDINGS: None. IMPRESSION: Extensive bilateral fine nodular interstitial infiltrate both lower lobes. Dense pleural-based consolidation right lower lobe. Subpleural emphysema. Mild centrilobular pulmonary emphysema. Left upper lobe nodules, 7 mm and 9 mm. Recommend followup noncontrast chest CT in 3 months. Multiple left upper lobe nodular calcifications, likely granulomatous. Probable small airways disease posterior right upper lobe. Findings are nonspecific and may reflect infection or inflammatory disease. Evidence of old granulomatous disease.
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
--- NOTE | 2016-07-24 20:28 | CP.PCM.PN ---
Subjective - Date & Time of Evaluation Date of Evaluation: 07/24/16 Time of Evaluation: 20:26 - Subjective Subjective: FEELS BETTER BREATHING LESS COUGH Objective - Vital Signs/Intake and Output Vital Signs (last 24 hours): Temp Pulse Resp BP Pulse Ox 98.6 F 69 24 101/65 98 07/24/16 15:00 07/24/16 15:28 07/24/16 15:00 07/24/16 15:28 07/24/16 15:28 Intake and Output: 07/24/16 07/25/16 18:59 06:59 Output Total 300 Balance -300 - Medications Medications: Current Medications Albuterol/Ipratropium (Duoneb 3 Mg/0.5 Mg (3 Ml) Ud) 3 ml INH RQ6 [facility] Last Admin: 07/24/16 19:14 Dose: 3 ml Aspirin (Aspirin Chewable) 81 mg PO DAILY [facility] Last Admin: 07/24/16 10:25 Dose: 81 mg Calcium Carbonate (Tums) 500 mg PO BID [facility] Last Admin: 07/24/16 17:34 Dose: 500 mg Diphenhydramine HCl (Benadryl) 25 mg PO Q6 PRN PRN Reason: Extra Pyramidal Symptoms Ferrous Sulfate (Feosol) 325 mg PO DAILY [facility] Last Admin: 07/24/16 10:25 Dose: 325 mg Guaifenesin/Dextromethorphan (Robitussin Dm) 10 ml PO TID [facility] Last Admin: 07/24/16 17:34 Dose: 10 ml Haloperidol (Haldol) 2 mg PO Q8 PRN PRN Reason: Moderate Agitation Ceftriaxone Sodium 1 gm/ (Sodium Chloride) 100 mls @ 100 mls/hr IVPB Q24H [facility] Last Admin: 07/23/16 21:35 Dose: 100 mls/hr Insulin Aspart (Novolog) 0 unit SC ACHS [facility] PRN Reason: Protocol Last Admin: 07/24/16 17:35 Dose: Not Given Insulin Glargine (Lantus) 10 unit SC HS [facility] Last Admin: 07/23/16 21:36 Dose: 10 units Levothyroxine Sodium (Synthroid) 37.5 mcg PO DAILY@0630 [facility] Last Admin: 07/24/16 05:47 Dose: 37.5 mcg Lorazepam (Ativan) 1 mg IVP Q4H PRN PRN Reason: Agitation Last Admin: 07/24/16 10:34 Dose: 1 mg Lorazepam (Ativan) 0.5 mg PO Q8 [facility] Last Admin: 07/24/16 15:52 Dose: 0.5 mg Megestrol Acetate (Megace) 40 mg PO DAILY [facility] Last Admin: 07/24/16 10:25 Dose: 40 mg Metformin HCl (Glucophage) 1,000 mg PO BID [facility] Last Admin: 07/24/16 17:34 Dose: 1,000 mg Mirtazapine (Remeron) 7.5 mg PO HS [facility] Last Admin: 07/23/16 21:39 Dose: 7.5 mg Pantoprazole Sodium (Protonix Ec Tab) 40 mg PO DAILY [facility] Last Admin: 07/24/16 10:24 Dose: 40 mg Quetiapine Fumarate (Seroquel) 25 mg PO DAILY [facility] Quetiapine Fumarate (Seroquel) 50 mg PO HS [facility] Rosuvastatin Calcium (Crestor) 5 mg PO HS [facility] Last Admin: 07/23/16 21:38 Dose: 5 mg Fluticasone/Salmeterol (Advair Diskus 250/50) 1 puff INH RQ12 [facility] Last Admin: 07/24/16 19:14 Dose: 1 puff Tamsulosin HCl (Flomax) 0.4 mg PO DAILY [facility] Last Admin: 07/24/16 10:25 Dose: 0.4 mg Tiotropium [place] (Spiriva Inhalation Handihaler Device) 1 inhaler INH DAILY [facility] Last Admin: 07/20/16 11:23 Dose: 1 inhaler Tramadol HCl (Ultram) 50 mg PO Q12 PRN PRN Reason: Pain, moderate (4-7) Last Admin: 07/20/16 05:05 Dose: 50 mg - Labs Labs: 07/24/16 07:07 07/24/16 07:07 - Constitutional Appears: No Acute Distress, Chronically Ill - Head Exam Head Exam: ATRAUMATIC, NORMOCEPHALIC - Eye Exam Eye Exam: Normal appearance - ENT Exam ENT Exam: Mucous Membranes Moist - Respiratory Exam Respiratory Exam: Decreased Breath Sounds - Cardiovascular Exam Cardiovascular Exam: +S1, +S2 - GI/Abdominal Exam GI & Abdominal Exam: Normal Bowel Sounds - Rectal Exam Rectal Exam: Deferred - Neurological Exam Neurological Exam: Awake - Skin Skin Exam: Intact Assessment and Plan (1) Abnormal CXR (chest x-ray) Status: Acute (2) COPD exacerbation Status: Acute
[2016-07-24] MEDS: (Lantus) Insulin Glargine, Recombinant SC SCH (21:55)
--- NOTE | 2016-07-24 22:07 | CP.PCM.PN ---
Subjective - Date & Time of Evaluation Date of Evaluation: 07/24/16 Time of Evaluation: 10:00 - Subjective Subjective: Patient seen and evaluated Still some dyspnea Review Of Systems Constitutional: Negative for: Fever Cardiovascular: Negative for: Chest Pain Respiratory: Negative for: Shortness of Breath Gastrointestinal: Negative for: Vomiting Psych: Positive for: Suicidal ideation Physical Exam - Physical Exam Appears: Non-toxic, No Acute Distress, Other (cachectic) Skin: Warm, Dry, No Rash Head: Atraumatic, Normacephalic Neck: Normal, Normal ROM, Supple Chest: Symmetrical Cardiovascular: Rhythm Regular, No Murmur Respiratory: Normal Breath Sounds, No Rales, No Rhonchi, No Wheezing Gastrointestinal/Abdominal: Normal Exam, Soft, No Tenderness Extremity: Bilateral: Atraumatic Neurological/Psych: Oriented x3 Objective - Vital Signs/Intake and Output Vital Signs (last 24 hours): Temp Pulse Resp BP Pulse Ox 98.6 F 69 24 101/65 98 07/24/16 15:00 07/24/16 15:28 07/24/16 15:00 07/24/16 15:28 07/24/16 15:28 Intake and Output: 07/24/16 07/25/16 18:59 06:59 Output Total 300 Balance -300 - Medications Medications: Current Medications Albuterol/Ipratropium (Duoneb 3 Mg/0.5 Mg (3 Ml) Ud) 3 ml INH RQ6 [facility] Last Admin: 07/24/16 19:14 Dose: 3 ml Aspirin (Aspirin Chewable) 81 mg PO DAILY [facility] Last Admin: 07/24/16 10:25 Dose: 81 mg Calcium Carbonate (Tums) 500 mg PO BID [facility] Last Admin: 07/24/16 17:34 Dose: 500 mg Diphenhydramine HCl (Benadryl) 25 mg PO Q6 PRN PRN Reason: Extra Pyramidal Symptoms Ferrous Sulfate (Feosol) 325 mg PO DAILY [facility] Last Admin: 07/24/16 10:25 Dose: 325 mg Guaifenesin/Dextromethorphan (Robitussin Dm) 10 ml PO TID [facility] Last Admin: 07/24/16 17:34 Dose: 10 ml Haloperidol (Haldol) 2 mg PO Q8 PRN PRN Reason: Moderate Agitation Ceftriaxone Sodium 1 gm/ (Sodium Chloride) 100 mls @ 100 mls/hr IVPB Q24H [facility] Last Admin: 07/24/16 21:54 Dose: 100 mls/hr Insulin Aspart (Novolog) 0 unit SC ACHS [facility] PRN Reason: Protocol Last Admin: 07/24/16 17:35 Dose: Not Given Insulin Glargine (Lantus) 10 unit SC HS [facility] Last Admin: 07/24/16 21:55 Dose: 10 units Levothyroxine Sodium (Synthroid) 37.5 mcg PO DAILY@0630 [facility] Last Admin: 07/24/16 05:47 Dose: 37.5 mcg Lorazepam (Ativan) 1 mg IVP Q4H PRN PRN Reason: Agitation Last Admin: 07/24/16 10:34 Dose: 1 mg Lorazepam (Ativan) 0.5 mg PO Q8 [facility] Last Admin: 07/24/16 21:55 Dose: 0.5 mg Megestrol Acetate (Megace) 40 mg PO DAILY [facility] Last Admin: 07/24/16 10:25 Dose: 40 mg Metformin HCl (Glucophage) 1,000 mg PO BID [facility] Last Admin: 07/24/16 17:34 Dose: 1,000 mg Mirtazapine (Remeron) 7.5 mg PO HS [facility] Last Admin: 07/24/16 21:54 Dose: 7.5 mg Pantoprazole Sodium (Protonix Ec Tab) 40 mg PO DAILY [facility] Last Admin: 07/24/16 10:24 Dose: 40 mg Quetiapine Fumarate (Seroquel) 25 mg PO DAILY [facility] Quetiapine Fumarate (Seroquel) 50 mg PO HS [facility] Rosuvastatin Calcium (Crestor) 5 mg PO HS [facility] Last Admin: 07/24/16 21:55 Dose: 5 mg Fluticasone/Salmeterol (Advair Diskus 250/50) 1 puff INH RQ12 [facility] Last Admin: 07/24/16 19:14 Dose: 1 puff Tamsulosin HCl (Flomax) 0.4 mg PO DAILY [facility] Last Admin: 07/24/16 10:25 Dose: 0.4 mg Tiotropium [place] (Spiriva Inhalation Handihaler Device) 1 inhaler INH DAILY [facility] Last Admin: 07/20/16 11:23 Dose: 1 inhaler Tramadol HCl (Ultram) 50 mg PO Q12 PRN PRN Reason: Pain, moderate (4-7) Last Admin: 07/20/16 05:05 Dose: 50 mg - Labs Labs: 07/24/16 07:07 07/24/16 07:07 Assessment and Plan - Assessment and Plan (Free Text) Assessment: Dyspnea most likely due to COPD [place] normal
[2016-07-25] MEDS: Albuterol-Ipratrop 3 mg / 0.5 (3 ml) UD INH SCH ×4 (01:14→20:25)
[2016-07-25] MEDS: Levothyroxine 25 MCG TAB PO SCH (06:27)
[2016-07-25] MEDS: (Novolog) Insulin Aspart, Recombinant 100 u/ml 10 ml vial SC SCH ×4 (07:30→22:00)
[2016-07-25] MEDS: Fluticasone-Salmeterol 250-50mcg Diskus INH SCH ×2 (07:49→20:25)
[2016-07-25] MEDS: guaiFENesin DM 200 mg-20 mg/10 ml UD PO SCH ×3 (09:34→17:48)
[2016-07-25] MEDS: Pantoprazole 40 mg EC Tab PO SCH (09:35)
[2016-07-25] MEDS: Calcium Carbonate 500 mg Chewable Antacid Tab PO SCH ×2 (09:35→17:48)
--- NOTE | 2016-07-25 12:28 | CP.PCM.PN ---
Subjective - Date & Time of Evaluation Date of Evaluation: 07/25/16 Time of Evaluation: 07:40 - Subjective Subjective: clinically same Objective - Vital Signs/Intake and Output Vital Signs (last 24 hours): Temp Pulse Resp BP Pulse Ox 98.5 F 74 20 99/54 L 96 07/25/16 08:00 07/25/16 08:00 07/25/16 08:00 07/25/16 08:00 07/25/16 08:00 Intake and Output: 07/25/16 07/25/16 06:59 18:59 Intake Total 200 Balance 200 - Medications Medications: Current Medications Albuterol/Ipratropium (Duoneb 3 Mg/0.5 Mg (3 Ml) Ud) 3 ml INH RQ6 [facility] Last Admin: 07/25/16 07:48 Dose: 3 ml Aspirin (Aspirin Chewable) 81 mg PO DAILY [facility] Last Admin: 07/25/16 09:34 Dose: 81 mg Calcium Carbonate (Tums) 500 mg PO BID [facility] Last Admin: 07/25/16 09:35 Dose: 500 mg Diphenhydramine HCl (Benadryl) 25 mg PO Q6 PRN PRN Reason: Extra Pyramidal Symptoms Ferrous Sulfate (Feosol) 325 mg PO DAILY [facility] Last Admin: 07/25/16 09:35 Dose: 325 mg Guaifenesin/Dextromethorphan (Robitussin Dm) 10 ml PO TID [facility] Last Admin: 07/25/16 09:34 Dose: 10 ml Haloperidol (Haldol) 2 mg PO Q8 PRN PRN Reason: Moderate Agitation Ceftriaxone Sodium 1 gm/ (Sodium Chloride) 100 mls @ 100 mls/hr IVPB Q24H [facility] Last Admin: 07/24/16 21:54 Dose: 100 mls/hr Insulin Aspart (Novolog) 0 unit SC ACHS [facility] PRN Reason: Protocol Last Admin: 07/25/16 12:19 Dose: Not Given Insulin Glargine (Lantus) 10 unit SC HS [facility] Last Admin: 07/24/16 21:55 Dose: 10 units Levothyroxine Sodium (Synthroid) 37.5 mcg PO DAILY@0630 [facility] Last Admin: 07/25/16 06:27 Dose: 37.5 mcg Lorazepam (Ativan) 1 mg IVP Q4H PRN PRN Reason: Agitation Last Admin: 07/24/16 10:34 Dose: 1 mg Lorazepam (Ativan) 0.5 mg PO Q8 [facility] Last Admin: 07/25/16 06:27 Dose: 0.5 mg Megestrol Acetate (Megace) 40 mg PO DAILY [facility] Last Admin: 07/25/16 09:37 Dose: 40 mg Metformin HCl (Glucophage) 1,000 mg PO BID [facility] Last Admin: 07/25/16 09:35 Dose: 1,000 mg Mirtazapine (Remeron) 7.5 mg PO [facility] Last Admin: 07/24/16 21:54 Dose: 7.5 mg Pantoprazole Sodium (Protonix Ec Tab) 40 mg PO DAILY [facility] Last Admin: 07/25/16 09:35 Dose: 40 mg Quetiapine Fumarate (Seroquel) 25 mg PO DAILY [facility] Last Admin: 07/25/16 09:34 Dose: 25 mg Quetiapine Fumarate (Seroquel) 50 mg PO [facility] Last Admin: 07/24/16 22:11 Dose: 50 mg Rosuvastatin Calcium (Crestor) 5 mg PO [facility] Last Admin: 07/24/16 21:55 Dose: 5 mg Fluticasone/Salmeterol (Advair Diskus 250/50) 1 puff INH RQ12 [facility] Last Admin: 07/25/16 07:49 Dose: 1 puff Tamsulosin HCl (Flomax) 0.4 mg PO DAILY [facility] Last Admin: 07/25/16 09:34 Dose: 0.4 mg Tiotropium [place] (Spiriva Inhalation Handihaler Device) 1 inhaler INH DAILY [facility] Last Admin: 07/20/16 11:23 Dose: 1 inhaler Tramadol HCl (Ultram) 50 mg PO Q12 PRN PRN Reason: Pain, moderate (4-7) Last Admin: 07/20/16 05:05 Dose: 50 mg - Labs Labs: 07/24/16 07:07 07/24/16 07:07 - Constitutional Appears: Well - Head Exam Head Exam: ATRAUMATIC, NORMAL INSPECTION, NORMOCEPHALIC - Eye Exam Eye Exam: EOMI, Normal appearance, PERRL Pupil Exam: NORMAL ACCOMODATION, PERRL - ENT Exam ENT Exam: Mucous Membranes Moist, Normal Exam - Neck Exam Neck Exam: Full ROM, Normal Inspection. absent: Lymphadenopathy - Respiratory Exam Respiratory Exam: Decreased Breath Sounds - Cardiovascular Exam Cardiovascular Exam: REGULAR RHYTHM, +S1, +S2 - GI/Abdominal Exam GI & Abdominal Exam: Soft, Diminished Bowel Sounds - Rectal Exam Rectal Exam: Deferred Assessment and Plan (1) Abnormal CXR (chest x-ray) Status: Acute (2) COPD (chronic obstructive pulmonary disease) Status: Acute (3) COPD exacerbation Status: Acute (4) Cardiac disease Status: Acute (5) Compression fracture of L2 Status: Acute (6) Depression Status: Acute (7) Diabetes Status: Acute - Assessment and Plan (Free Text) Plan: ojvi same labs reviewed jovi antinbiotics pulmo onj board haldol insulin ativan seroquel Usama
--- NOTE | 2016-07-25 19:52 | CARD ---
APPROVED REPORT EXAM: Two-dimensional and M-mode echocardiogram with Doppler and color Doppler. Other Information Quality : GoodRhythm : NSR INDICATION Dyspnea Cardiac Disease: COPD RISK FACTORS Hypertension Diabetes M-Mode DIMENSIONS RVDd1.07 (2.1-3.2cm)Left Atrium (MM)3.16 (2.5-4.0cm) IVSd0.94 (0.7-1.1cm)Aortic Root3.40 (2.2-3.7cm) LVDd6.18 (4.0-5.6cm)Aortic Cusp Exc.2.01 (1.5-2.0cm) PWd0.88 (0.7-1.1cm)FS (%) 21 % LVDs4.88 (2.0-3.8cm)LVEF (%)42 (>50%) Aortic Valve AoV Peak Ezgqjasl973.5cm/Carli Peak GR.7mmHgAI P 1/2 [id number] Mitral Valve MV E Jygqkags63.0cm/sMV A Jenclyxk25.5cm/sE/A ratio1.5 TDI E/Lateral E'0.0E/Medial E'0.0 Tricuspid Valve TR Peak Ahhpfsqi147zg/sTR Peak Gr.[id number] LEFT VENTRICLE The left ventricle is normal size. There is mild to moderate concentric left ventricular hypertrophy. The systolic function is mildly to moderately impaired. Septal hypokinesis RIGHT VENTRICLE The right ventricle is normal size. There is normal right ventricular wall thickness. The right ventricular systolic function is normal. ATRIA The left atrium size is normal. The right atrium size is normal. AORTIC VALVE The aortic valve is normal in structure. There is mild to moderate aortic regurgitation. There is no aortic valvular stenosis. MITRAL VALVE The mitral valve is mildly thickened. There is no evidence of mitral valve prolapse. TRICUSPID VALVE The tricuspid valve leaflets are thickened , but open well. There is mild pulmonary hypertension. PULMONIC VALVE The pulmonary valve is normal in structure. There is no pulmonic valvular regurgitation. GREAT VESSELS The aortic root is normal in size. The IVC is dilated. The IVC collapses <50% with inspiration. PERICARDIAL EFFUSION There is no pericardial effusion. <Conclusion> The left ventricle is normal size. There is mild to moderate concentric left ventricular hypertrophy. The systolic function is mildly to moderately impaired. Septal hypokinesis There is mild to moderate aortic regurgitation. There is mild pulmonary hypertension.
--- NOTE | 2016-07-25 20:47 | CP.PCM.PN ---
Subjective - Date & Time of Evaluation Date of Evaluation: 07/25/16 Time of Evaluation: 09:10 - Subjective Subjective: Patient seen and evaluated Comfortable Review Of Systems Constitutional: Negative for: Fever Cardiovascular: Negative for: Chest Pain Respiratory: Negative for: Shortness of Breath Gastrointestinal: Negative for: Vomiting Physical Exam - Physical Exam Appears: Non-toxic, No Acute Distress, Other (cachectic) Skin: Warm, Dry, No Rash Head: Atraumatic, Normacephalic Neck: Normal, Normal ROM, Supple Chest: Symmetrical Cardiovascular: Rhythm Regular, No Murmur Respiratory: Normal Breath Sounds, No Rales, No Rhonchi, No Wheezing Gastrointestinal/Abdominal: Normal Exam, Soft, No Tenderness Extremity: Bilateral: Atraumatic Neurological/Psych: Oriented x3 Objective - Vital Signs/Intake and Output Vital Signs (last 24 hours): Temp Pulse Resp BP Pulse Ox 98.0 F 76 20 99/54 L 94 L 07/25/16 15:00 07/25/16 15:00 07/25/16 15:00 07/25/16 08:00 07/25/16 15:00 Intake and Output: 07/25/16 07/26/16 18:59 06:59 Intake Total 300 Output Total 300 Balance 0 - Medications Medications: Current Medications Albuterol/Ipratropium (Duoneb 3 Mg/0.5 Mg (3 Ml) Ud) 3 ml INH RQ6 [facility] Last Admin: 07/25/16 20:25 Dose: 3 ml Aspirin (Aspirin Chewable) 81 mg PO DAILY [facility] Last Admin: 07/25/16 09:34 Dose: 81 mg Calcium Carbonate (Tums) 500 mg PO BID [facility] Last Admin: 07/25/16 17:48 Dose: 500 mg Diphenhydramine HCl (Benadryl) 25 mg PO Q6 PRN PRN Reason: Extra Pyramidal Symptoms Ferrous Sulfate (Feosol) 325 mg PO DAILY [facility] Last Admin: 07/25/16 09:35 Dose: 325 mg Guaifenesin/Dextromethorphan (Robitussin Dm) 10 ml PO TID [facility] Last Admin: 07/25/16 17:48 Dose: 10 ml Haloperidol (Haldol) 2 mg PO Q8 PRN PRN Reason: Moderate Agitation Last Admin: 07/25/16 17:48 Dose: 2 mg Ceftriaxone Sodium 1 gm/ (Sodium Chloride) 100 mls @ 100 mls/hr IVPB Q24H [facility] Last Admin: 07/24/16 21:54 Dose: 100 mls/hr Insulin Aspart (Novolog) 0 unit SC ACHS [facility] PRN Reason: Protocol Last Admin: 07/25/16 17:48 Dose: 1 unit Insulin Glargine (Lantus) 10 unit SC HS [facility] Last Admin: 07/24/16 21:55 Dose: 10 units Levothyroxine Sodium (Synthroid) 37.5 mcg PO DAILY@0630 [facility] Last Admin: 07/25/16 06:27 Dose: 37.5 mcg Lorazepam (Ativan) 1 mg IVP Q4H PRN PRN Reason: Agitation Last Admin: 07/25/16 19:19 Dose: 1 mg Lorazepam (Ativan) 0.5 mg PO Q8 [facility] Last Admin: 07/25/16 13:24 Dose: 0.5 mg Megestrol Acetate (Megace) 40 mg PO DAILY [facility] Last Admin: 07/25/16 09:37 Dose: 40 mg Metformin HCl (Glucophage) 1,000 mg PO BID [facility] Last Admin: 07/25/16 17:48 Dose: 1,000 mg Mirtazapine (Remeron) 7.5 mg PO HS [facility] Last Admin: 07/24/16 21:54 Dose: 7.5 mg Pantoprazole Sodium (Protonix Ec Tab) 40 mg PO DAILY [facility] Last Admin: 07/25/16 09:35 Dose: 40 mg Quetiapine Fumarate (Seroquel) 25 mg PO DAILY [facility] Last Admin: 07/25/16 09:34 Dose: 25 mg Quetiapine Fumarate (Seroquel) 50 mg PO HS [facility] Last Admin: 07/24/16 22:11 Dose: 50 mg Rosuvastatin Calcium (Crestor) 5 mg PO HS [facility] Last Admin: 07/24/16 21:55 Dose: 5 mg Fluticasone/Salmeterol (Advair Diskus 250/50) 1 puff INH RQ12 [facility] Last Admin: 07/25/16 20:25 Dose: 1 puff Tamsulosin HCl (Flomax) 0.4 mg PO DAILY [facility] Last Admin: 07/25/16 09:34 Dose: 0.4 mg Tiotropium [place] (Spiriva Inhalation Handihaler Device) 1 inhaler INH DAILY [facility] Last Admin: 07/20/16 11:23 Dose: 1 inhaler Tramadol HCl (Ultram) 50 mg PO Q12 PRN PRN Reason: Pain, moderate (4-7) Last Admin: 07/20/16 05:05 Dose: 50 mg - Labs Labs: 07/24/16 07:07 07/24/16 07:07 Assessment and Plan - Assessment and Plan (Free Text) Assessment: Dyspnea most likely due to COPD
[2016-07-25] MEDS: (Lantus) Insulin Glargine, Recombinant SC SCH (21:45)
[2016-07-26] MEDS: Albuterol-Ipratrop 3 mg / 0.5 (3 ml) UD INH SCH ×4 (01:34→20:01)
[2016-07-26] MEDS: Levothyroxine 25 MCG TAB PO SCH (06:13)
[2016-07-26] MEDS: (Novolog) Insulin Aspart, Recombinant 100 u/ml 10 ml vial SC SCH ×4 (07:44→21:45)
[2016-07-26] MEDS: Fluticasone-Salmeterol 250-50mcg Diskus INH SCH ×2 (07:46→20:00)
[2016-07-26] MEDS: Pantoprazole 40 mg EC Tab PO SCH (10:07)
[2016-07-26] MEDS: guaiFENesin DM 200 mg-20 mg/10 ml UD PO SCH ×3 (10:10→18:10)
[2016-07-26] MEDS: Calcium Carbonate 500 mg Chewable Antacid Tab PO SCH ×2 (10:10→18:10)
--- NOTE | 2016-07-26 15:09 | CP.PCM.PN ---
Subjective - Date & Time of Evaluation Date of Evaluation: 07/26/16 Time of Evaluation: 10:45 - Subjective Subjective: clinically same Objective - Vital Signs/Intake and Output Vital Signs (last 24 hours): Temp Pulse Resp BP Pulse Ox 98.2 F 73 20 90/56 L 95 07/26/16 07:52 07/26/16 07:52 07/26/16 07:52 07/26/16 07:52 07/26/16 07:52 Intake and Output: 07/26/16 07/26/16 06:59 18:59 Intake Total 250 480 Balance 250 480 - Medications Medications: Current Medications Albuterol/Ipratropium (Duoneb 3 Mg/0.5 Mg (3 Ml) Ud) 3 ml INH RQ6 [facility] Last Admin: 07/26/16 13:35 Dose: 3 ml Aspirin (Aspirin Chewable) 81 mg PO DAILY [facility] Last Admin: 07/26/16 10:07 Dose: 81 mg Calcium Carbonate (Tums) 500 mg PO BID [facility] Last Admin: 07/26/16 10:10 Dose: 500 mg Diphenhydramine HCl (Benadryl) 25 mg PO Q6 PRN PRN Reason: Extra Pyramidal Symptoms Ferrous Sulfate (Feosol) 325 mg PO DAILY [facility] Last Admin: 07/26/16 10:07 Dose: 325 mg Guaifenesin/Dextromethorphan (Robitussin Dm) 10 ml PO TID [facility] Last Admin: 07/26/16 13:33 Dose: Not Given Haloperidol (Haldol) 2 mg PO Q8 PRN PRN Reason: Moderate Agitation Last Admin: 07/26/16 10:09 Dose: 2 mg Ceftriaxone Sodium 1 gm/ (Sodium Chloride) 100 mls @ 100 mls/hr IVPB Q24H [facility] Last Admin: 07/25/16 21:47 Dose: 100 mls/hr Insulin Aspart (Novolog) 0 unit SC ACHS [facility] PRN Reason: Protocol Last Admin: 07/26/16 11:47 Dose: Not Given Insulin Glargine (Lantus) 10 unit SC HS [facility] Last Admin: 07/25/16 21:45 Dose: 10 units Levothyroxine Sodium (Synthroid) 37.5 mcg PO DAILY@0630 [facility] Last Admin: 07/26/16 06:13 Dose: 37.5 mcg Lorazepam (Ativan) 1 mg IVP Q4H PRN PRN Reason: Agitation Last Admin: 07/25/16 19:19 Dose: 1 mg Lorazepam (Ativan) 0.5 mg PO Q8 [facility] Last Admin: 07/26/16 13:33 Dose: Not Given Megestrol Acetate (Megace) 40 mg PO DAILY [facility] Last Admin: 07/26/16 10:09 Dose: 40 mg Metformin HCl (Glucophage) 1,000 mg PO BID [facility] Last Admin: 07/26/16 10:07 Dose: 1,000 mg Mirtazapine (Remeron) 7.5 mg PO HS [facility] Last Admin: 07/25/16 21:46 Dose: 7.5 mg Pantoprazole Sodium (Protonix Ec Tab) 40 mg PO DAILY [facility] Last Admin: 07/26/16 10:07 Dose: 40 mg Quetiapine Fumarate (Seroquel) 25 mg PO DAILY [facility] Last Admin: 07/26/16 10:10 Dose: 25 mg Quetiapine Fumarate (Seroquel) 50 mg PO HS [facility] Last Admin: 07/25/16 21:44 Dose: 50 mg Rosuvastatin Calcium (Crestor) 5 mg PO HS [facility] Last Admin: 07/25/16 21:44 Dose: 5 mg Fluticasone/Salmeterol (Advair Diskus 250/50) 1 puff INH RQ12 [facility] Last Admin: 07/26/16 07:46 Dose: 1 puff Tamsulosin HCl (Flomax) 0.4 mg PO DAILY [facility] Last Admin: 07/26/16 10:07 Dose: 0.4 mg Tiotropium [place] (Spiriva Inhalation Handihaler Device) 1 inhaler INH DAILY [facility] Last Admin: 07/20/16 11:23 Dose: 1 inhaler Tramadol HCl (Ultram) 50 mg PO Q12 PRN PRN Reason: Pain, moderate (4-7) Last Admin: 07/20/16 05:05 Dose: 50 mg - Labs Labs: 07/24/16 07:07 07/24/16 07:07 Assessment and Plan (1) Abnormal CXR (chest x-ray) Status: Acute (2) COPD (chronic obstructive pulmonary disease) Status: Acute (3) COPD exacerbation Status: Acute (4) Cardiac disease Status: Acute (5) Compression fracture of L2 Status: Acute (6) Depression Status: Acute (7) Diabetes Status: Acute - Assessment and Plan (Free Text) Plan: f/u Dr. Yves espana. Advair Diskus aspirin ceftriaxone Crestor Duoneb
[2016-07-26] MEDS ORDERED: Dextrose 50% SYRINGE Inj (50 ml) ONE (17:05)
[2016-07-26] MEDS ORDERED: Dextrose 50% SYRINGE Inj (50 ml) IV STA (17:53)
--- NOTE | 2016-07-26 18:55 | CP.PCM.PN ---
Subjective - Date & Time of Evaluation Date of Evaluation: 07/26/16 Time of Evaluation: 06:45 - Subjective Subjective: Patient seen and evaluated Objective - Vital Signs/Intake and Output Vital Signs (last 24 hours): Temp Pulse Resp BP Pulse Ox 98.1 F 72 20 105/58 L 98 07/26/16 16:00 07/26/16 16:00 07/26/16 16:00 07/26/16 16:00 07/26/16 16:00 Intake and Output: 07/26/16 07/26/16 06:59 18:59 Intake Total 250 480 Balance 250 480 - Medications Medications: Current Medications Albuterol/Ipratropium (Duoneb 3 Mg/0.5 Mg (3 Ml) Ud) 3 ml INH RQ6 [facility] Last Admin: 07/26/16 13:35 Dose: 3 ml Aspirin (Aspirin Chewable) 81 mg PO DAILY [facility] Last Admin: 07/26/16 10:07 Dose: 81 mg Calcium Carbonate (Tums) 500 mg PO BID [facility] Last Admin: 07/26/16 18:10 Dose: 500 mg Diphenhydramine HCl (Benadryl) 25 mg PO Q6 PRN PRN Reason: Extra Pyramidal Symptoms Ferrous Sulfate (Feosol) 325 mg PO DAILY [facility] Last Admin: 07/26/16 10:07 Dose: 325 mg Guaifenesin/Dextromethorphan (Robitussin Dm) 10 ml PO TID [facility] Last Admin: 07/26/16 18:10 Dose: Not Given Haloperidol (Haldol) 2 mg PO Q8 PRN PRN Reason: Moderate Agitation Last Admin: 07/26/16 10:09 Dose: 2 mg Ceftriaxone Sodium 1 gm/ (Sodium Chloride) 100 mls @ 100 mls/hr IVPB Q24H [facility] Last Admin: 07/25/16 21:47 Dose: 100 mls/hr Insulin Aspart (Novolog) 0 unit SC ACHS [facility] PRN Reason: Protocol Last Admin: 07/26/16 16:30 Dose: Not Given Insulin Glargine (Lantus) 10 unit SC HS [facility] Last Admin: 07/25/16 21:45 Dose: 10 units Levothyroxine Sodium (Synthroid) 37.5 mcg PO DAILY@0630 [facility] Last Admin: 07/26/16 06:13 Dose: 37.5 mcg Lorazepam (Ativan) 1 mg IVP Q4H PRN PRN Reason: Agitation Last Admin: 07/26/16 16:40 Dose: 1 mg Lorazepam (Ativan) 0.5 mg PO Q8 [facility] Last Admin: 07/26/16 13:33 Dose: Not Given Megestrol Acetate (Megace) 40 mg PO DAILY [facility] Last Admin: 07/26/16 10:09 Dose: 40 mg Metformin HCl (Glucophage) 1,000 mg PO BID [facility] Last Admin: 07/26/16 10:07 Dose: 1,000 mg Mirtazapine (Remeron) 7.5 mg PO HS [facility] Last Admin: 07/25/16 21:46 Dose: 7.5 mg Pantoprazole Sodium (Protonix Ec Tab) 40 mg PO DAILY [facility] Last Admin: 07/26/16 10:07 Dose: 40 mg Quetiapine Fumarate (Seroquel) 25 mg PO DAILY [facility] Last Admin: 07/26/16 10:10 Dose: 25 mg Quetiapine Fumarate (Seroquel) 50 mg PO HS [facility] Last Admin: 07/25/16 21:44 Dose: 50 mg Rosuvastatin Calcium (Crestor) 5 mg PO HS [facility] Last Admin: 07/25/16 21:44 Dose: 5 mg Fluticasone/Salmeterol (Advair Diskus 250/50) 1 puff INH RQ12 [facility] Last Admin: 07/26/16 07:46 Dose: 1 puff Tamsulosin HCl (Flomax) 0.4 mg PO DAILY [facility] Last Admin: 07/26/16 10:07 Dose: 0.4 mg Tiotropium [place] (Spiriva Inhalation Handihaler Device) 1 inhaler INH DAILY [facility] Last Admin: 07/20/16 11:23 Dose: 1 inhaler Tramadol HCl (Ultram) 50 mg PO Q12 PRN PRN Reason: Pain, moderate (4-7) Last Admin: 07/20/16 05:05 Dose: 50 mg - Labs Labs: 07/24/16 07:07 07/24/16 07:07
[2016-07-26] MEDS: (Lantus) Insulin Glargine, Recombinant SC SCH (21:39)
[2016-07-27] MEDS: Albuterol-Ipratrop 3 mg / 0.5 (3 ml) UD INH SCH ×4 (01:38→20:05)
[2016-07-27] MEDS: Levothyroxine 25 MCG TAB PO SCH (05:38)
[2016-07-27 06:13] LABS: BASO # 0.1 K/uL (0.0-0.2); BASO % 0.9 % (0.0-2.0); EOS # 0.1 K/uL (0.0-0.7); EOS % 2.2 % (0.0-4.0); HEMATOCRIT 30.5 % (35.0-51.0); LYMPH # 1.9 K/uL (1.0-4.3); LYMPH % 32.6 % (20.0-40.0); MEAN CELL VOLUME 85.3 fL (80.0-94.0); MEAN CORPUSCULAR HEMOGLOBIN 26.7 pg (27.0-31.0); MEAN CORPUSCULAR HGB CONC 31.3 g/dL (33.0-37.0); MONO # 0.7 K/uL (0.0-0.8); MONO % 11.2 % (0.0-10.0); NRBC % 0.1 % (0.0-2.0); RED CELL DISTRIBUTION WIDTH 21.1 % (11.5-14.5)
[2016-07-27 06:31] LABS: CHLORIDE 102 mmol/L (98-107)
[2016-07-27 06:32] LABS: POTASSIUM 4.2 mmol/L (3.6-5.2); SODIUM 136 mmol/L (132-148)
[2016-07-27 06:34] LABS: CARBON DIOXIDE 24 mmol/L (22-30); GFR AFRICAN-AMERICAN > 60
[2016-07-27 06:35] LABS: ALB/GLOB RATIO 0.9 (1.0-2.1); ALKALINE PHOSPHATASE 44 U/L (38-126); ALT/SGPT 16 U/L (21-72); AST/SGOT 15 U/L (17-59); BILIRUBIN,TOTAL 0.4 mg/dL (0.2-1.3); BLOOD UREA NITROGEN 19 mg/dL (9-20); CALCIUM 8.4 mg/dl (8.6-10.4); GLUCOSE,RANDOM 95 mg/dL (75-110)
[2016-07-27] MEDS: Fluticasone-Salmeterol 250-50mcg Diskus INH SCH (07:19)
[2016-07-27] MEDS: (Novolog) Insulin Aspart, Recombinant 100 u/ml 10 ml vial SC SCH ×4 (08:06→21:48)
[2016-07-27] MEDS: Calcium Carbonate 500 mg Chewable Antacid Tab PO SCH ×2 (09:56→18:20)
[2016-07-27] MEDS: Pantoprazole 40 mg EC Tab PO SCH (09:56)
[2016-07-27] MEDS: guaiFENesin DM 200 mg-20 mg/10 ml UD PO SCH ×3 (09:56→18:20)
--- NOTE | 2016-07-27 16:08 | CP.PCM.PN ---
Subjective - Date & Time of Evaluation Date of Evaluation: 07/27/16 Time of Evaluation: 16:05 - Subjective Subjective: sleeping currently in bed no resp. distress Objective - Vital Signs/Intake and Output Vital Signs (last 24 hours): Temp Pulse Resp BP Pulse Ox 98.2 F 78 20 102/57 L 98 07/27/16 00:00 07/27/16 00:00 07/27/16 00:00 07/27/16 00:00 07/27/16 00:00 Intake and Output: 07/27/16 07/27/16 06:59 18:59 Intake Total 640 120 Balance 640 120 - Medications Medications: Current Medications Albuterol/Ipratropium (Duoneb 3 Mg/0.5 Mg (3 Ml) Ud) 3 ml INH RQ6 [facility] Last Admin: 07/27/16 13:38 Dose: Not Given Aspirin (Aspirin Chewable) 81 mg PO DAILY [facility] Last Admin: 07/27/16 09:56 Dose: 81 mg Calcium Carbonate (Tums) 500 mg PO BID [facility] Last Admin: 07/27/16 09:56 Dose: 500 mg Diphenhydramine HCl (Benadryl) 25 mg PO Q6 PRN PRN Reason: Extra Pyramidal Symptoms Ferrous Sulfate (Feosol) 325 mg PO DAILY [facility] Last Admin: 07/27/16 09:57 Dose: 325 mg Guaifenesin/Dextromethorphan (Robitussin Dm) 10 ml PO TID [facility] Last Admin: 07/27/16 14:03 Dose: 10 ml Haloperidol (Haldol) 2 mg PO Q8 PRN PRN Reason: Moderate Agitation Last Admin: 07/26/16 10:09 Dose: 2 mg Ceftriaxone Sodium 1 gm/ (Sodium Chloride) 100 mls @ 100 mls/hr IVPB Q24H [facility] Last Admin: 07/26/16 21:38 Dose: 100 mls/hr Insulin Aspart (Novolog) 0 unit SC ACHS [facility] PRN Reason: Protocol Last Admin: 07/27/16 12:23 Dose: 2 unit Insulin Glargine (Lantus) 10 unit SC HS [facility] Last Admin: 07/26/16 21:39 Dose: 10 units Levothyroxine Sodium (Synthroid) 37.5 mcg PO DAILY@0630 [facility] Last Admin: 07/27/16 05:38 Dose: 37.5 mcg Lorazepam (Ativan) 1 mg IVP Q4H PRN PRN Reason: Agitation Last Admin: 07/26/16 16:40 Dose: 1 mg Lorazepam (Ativan) 0.5 mg PO Q8 [facility] Last Admin: 07/27/16 14:03 Dose: 0.5 mg Megestrol Acetate (Megace) 40 mg PO DAILY [facility] Last Admin: 07/27/16 09:58 Dose: 40 mg Metformin HCl (Glucophage) 1,000 mg PO BID [facility] Last Admin: 07/27/16 09:56 Dose: 1,000 mg Mirtazapine (Remeron) 7.5 mg PO HS [facility] Last Admin: 07/26/16 21:38 Dose: 7.5 mg Pantoprazole Sodium (Protonix Ec Tab) 40 mg PO DAILY [facility] Last Admin: 07/27/16 09:56 Dose: 40 mg Quetiapine Fumarate (Seroquel) 25 mg PO DAILY [facility] Last Admin: 07/27/16 11:08 Dose: 25 mg Quetiapine Fumarate (Seroquel) 50 mg PO HS [facility] Last Admin: 07/26/16 21:38 Dose: 50 mg Rosuvastatin Calcium (Crestor) 5 mg PO HS [facility] Last Admin: 07/26/16 21:38 Dose: 5 mg Fluticasone/Salmeterol (Advair Diskus 250/50) 1 puff INH RQ12 [facility] Last Admin: 07/27/16 07:19 Dose: Not Given Tamsulosin HCl (Flomax) 0.4 mg PO DAILY [facility] Last Admin: 07/27/16 09:57 Dose: 0.4 mg Tiotropium [place] (Spiriva Inhalation Handihaler Device) 1 inhaler INH DAILY [facility] Tramadol HCl (Ultram) 50 mg PO Q12 PRN PRN Reason: Pain, moderate (4-7) Last Admin: 07/20/16 05:05 Dose: 50 mg - Labs Labs: 07/27/16 06:03 07/27/16 06:03 - Constitutional Appears: Chronically Ill - Head Exam Head Exam: ATRAUMATIC, NORMOCEPHALIC - Eye Exam Eye Exam: Normal appearance - ENT Exam ENT Exam: Mucous Membranes Moist - Respiratory Exam Respiratory Exam: Decreased Breath Sounds - Cardiovascular Exam Cardiovascular Exam: +S1, +S2 - GI/Abdominal Exam GI & Abdominal Exam: Normal Bowel Sounds - Rectal Exam Rectal Exam: Deferred - Skin Skin Exam: Intact Assessment and Plan (1) Abnormal CXR (chest x-ray) Status: Acute (2) COPD exacerbation Status: Acute
--- NOTE | 2016-07-27 16:38 | CP.PCM.PN ---
Subjective - Date & Time of Evaluation Date of Evaluation: 07/27/16 Time of Evaluation: 07:40 - Subjective Subjective: clinically same Objective - Vital Signs/Intake and Output Vital Signs (last 24 hours): Temp Pulse Resp BP Pulse Ox 98.4 F 78 20 102/57 L 98 07/27/16 15:00 07/27/16 16:12 07/27/16 15:00 07/27/16 16:12 07/27/16 16:12 Intake and Output: 07/27/16 07/27/16 06:59 18:59 Intake Total 640 120 Balance 640 120 - Medications Medications: Current Medications Albuterol/Ipratropium (Duoneb 3 Mg/0.5 Mg (3 Ml) Ud) 3 ml INH RQ6 [facility] Last Admin: 07/27/16 13:38 Dose: Not Given Aspirin (Aspirin Chewable) 81 mg PO DAILY [facility] Last Admin: 07/27/16 09:56 Dose: 81 mg Calcium Carbonate (Tums) 500 mg PO BID [facility] Last Admin: 07/27/16 09:56 Dose: 500 mg Diphenhydramine HCl (Benadryl) 25 mg PO Q6 PRN PRN Reason: Extra Pyramidal Symptoms Ferrous Sulfate (Feosol) 325 mg PO DAILY [facility] Last Admin: 07/27/16 09:57 Dose: 325 mg Guaifenesin/Dextromethorphan (Robitussin Dm) 10 ml PO TID [facility] Last Admin: 07/27/16 14:03 Dose: 10 ml Haloperidol (Haldol) 2 mg PO Q8 PRN PRN Reason: Moderate Agitation Last Admin: 07/26/16 10:09 Dose: 2 mg Ceftriaxone Sodium 1 gm/ (Sodium Chloride) 100 mls @ 100 mls/hr IVPB Q24H [facility] Last Admin: 07/26/16 21:38 Dose: 100 mls/hr Insulin Aspart (Novolog) 0 unit SC ACHS [facility] PRN Reason: Protocol Last Admin: 07/27/16 12:23 Dose: 2 unit Insulin Glargine (Lantus) 10 unit SC HS [facility] Last Admin: 07/26/16 21:39 Dose: 10 units Levothyroxine Sodium (Synthroid) 37.5 mcg PO DAILY@0630 [facility] Last Admin: 07/27/16 05:38 Dose: 37.5 mcg Lorazepam (Ativan) 1 mg IVP Q4H PRN PRN Reason: Agitation Last Admin: 07/26/16 16:40 Dose: 1 mg Lorazepam (Ativan) 0.5 mg PO Q8 [facility] Last Admin: 07/27/16 14:03 Dose: 0.5 mg Megestrol Acetate (Megace) 40 mg PO DAILY [facility] Last Admin: 07/27/16 09:58 Dose: 40 mg Metformin HCl (Glucophage) 1,000 mg PO BID [facility] Last Admin: 07/27/16 09:56 Dose: 1,000 mg Mirtazapine (Remeron) 7.5 mg PO HS [facility] Last Admin: 07/26/16 21:38 Dose: 7.5 mg Pantoprazole Sodium (Protonix Ec Tab) 40 mg PO DAILY [facility] Last Admin: 07/27/16 09:56 Dose: 40 mg Quetiapine Fumarate (Seroquel) 25 mg PO DAILY [facility] Last Admin: 07/27/16 11:08 Dose: 25 mg Quetiapine Fumarate (Seroquel) 50 mg PO HS [facility] Last Admin: 07/26/16 21:38 Dose: 50 mg Rosuvastatin Calcium (Crestor) 5 mg PO HS [facility] Last Admin: 07/26/16 21:38 Dose: 5 mg Fluticasone/Salmeterol (Advair Diskus 250/50) 1 puff INH RQ12 [facility] Last Admin: 07/27/16 07:19 Dose: Not Given Tamsulosin HCl (Flomax) 0.4 mg PO DAILY [facility] Last Admin: 07/27/16 09:57 Dose: 0.4 mg Tiotropium [place] (Spiriva) 18 mcg INH RQ24 [facility] Tramadol HCl (Ultram) 50 mg PO Q12 PRN PRN Reason: Pain, moderate (4-7) Last Admin: 07/20/16 05:05 Dose: 50 mg - Labs Labs: 07/27/16 06:03 07/27/16 06:03 - Constitutional Appears: Well - Head Exam Head Exam: ATRAUMATIC, NORMAL INSPECTION, NORMOCEPHALIC - Eye Exam Eye Exam: EOMI, Normal appearance, PERRL Pupil Exam: NORMAL ACCOMODATION, PERRL - ENT Exam ENT Exam: Mucous Membranes Moist, Normal Exam - Neck Exam Neck Exam: Full ROM, Normal Inspection. absent: Lymphadenopathy - Respiratory Exam Respiratory Exam: Decreased Breath Sounds - Cardiovascular Exam Cardiovascular Exam: REGULAR RHYTHM, +S1, +S2 - GI/Abdominal Exam GI & Abdominal Exam: Soft, Diminished Bowel Sounds - Rectal Exam Rectal Exam: Deferred Assessment and Plan (1) Abnormal CXR (chest x-ray) Status: Acute (2) COPD (chronic obstructive pulmonary disease) Status: Acute (3) COPD exacerbation Status: Acute (4) Cardiac disease Status: Acute (5) Compression fracture of L2 Status: Acute (6) Depression Status: Acute (7) Diabetes Status: Acute - Assessment and Plan (Free Text) Plan: labs ok jovi same med reviewed spoke to mental health social worker lizeth moseley
[2016-07-27] MEDS: (Lantus) Insulin Glargine, Recombinant SC SCH (21:50)
--- NOTE | 2016-07-27 23:14 | CP.PCM.PN ---
Subjective - Date & Time of Evaluation Date of Evaluation: 07/27/16 Time of Evaluation: 19:50 - Subjective Subjective: Patient seen and evaluated No cardiac events noted Objective - Vital Signs/Intake and Output Vital Signs (last 24 hours): Temp Pulse Resp BP Pulse Ox 98.4 F 78 20 102/57 L 98 07/27/16 15:00 07/27/16 16:12 07/27/16 15:00 07/27/16 16:12 07/27/16 16:12 Intake and Output: 07/27/16 07/28/16 18:59 06:59 Intake Total 120 Balance 120 - Medications Medications: Current Medications Albuterol/Ipratropium (Duoneb 3 Mg/0.5 Mg (3 Ml) Ud) 3 ml INH RQ6 [facility] Last Admin: 07/27/16 20:05 Dose: 3 ml Aspirin (Aspirin Chewable) 81 mg PO DAILY [facility] Last Admin: 07/27/16 09:56 Dose: 81 mg Calcium Carbonate (Tums) 500 mg PO BID [facility] Last Admin: 07/27/16 18:20 Dose: 500 mg Diphenhydramine HCl (Benadryl) 25 mg PO Q6 PRN PRN Reason: Extra Pyramidal Symptoms Ferrous Sulfate (Feosol) 325 mg PO DAILY [facility] Last Admin: 07/27/16 09:57 Dose: 325 mg Guaifenesin/Dextromethorphan (Robitussin Dm) 10 ml PO TID [facility] Last Admin: 07/27/16 18:20 Dose: 10 ml Haloperidol (Haldol) 2 mg PO Q8 PRN PRN Reason: Moderate Agitation Last Admin: 07/26/16 10:09 Dose: 2 mg Ceftriaxone Sodium 1 gm/ (Sodium Chloride) 100 mls @ 100 mls/hr IVPB Q24H [facility] Last Admin: 07/27/16 21:02 Dose: 100 mls/hr Insulin Aspart (Novolog) 0 unit SC ACHS [facility] PRN Reason: Protocol Last Admin: 07/27/16 21:48 Dose: Not Given Insulin Glargine (Lantus) 10 unit SC HS [facility] Last Admin: 07/27/16 21:50 Dose: Not Given Levothyroxine Sodium (Synthroid) 37.5 mcg PO DAILY@0630 [facility] Last Admin: 07/27/16 05:38 Dose: 37.5 mcg Lorazepam (Ativan) 1 mg IVP Q4H PRN PRN Reason: Agitation Last Admin: 07/26/16 16:40 Dose: 1 mg Lorazepam (Ativan) 0.5 mg PO Q8 [facility] Last Admin: 07/27/16 21:07 Dose: 0.5 mg Megestrol Acetate (Megace) 40 mg PO DAILY [facility] Last Admin: 07/27/16 09:58 Dose: 40 mg Metformin HCl (Glucophage) 1,000 mg PO BID [facility] Last Admin: 07/27/16 18:16 Dose: Not Given Mirtazapine (Remeron) 7.5 mg PO HS [facility] Last Admin: 07/27/16 21:07 Dose: 7.5 mg Pantoprazole Sodium (Protonix Ec Tab) 40 mg PO DAILY [facility] Last Admin: 07/27/16 09:56 Dose: 40 mg Quetiapine Fumarate (Seroquel) 25 mg PO DAILY [facility] Last Admin: 07/27/16 11:08 Dose: 25 mg Quetiapine Fumarate (Seroquel) 50 mg PO HS [facility] Last Admin: 07/27/16 21:07 Dose: 50 mg Rosuvastatin Calcium (Crestor) 5 mg PO HS [facility] Last Admin: 07/27/16 21:07 Dose: 5 mg Fluticasone/Salmeterol (Advair Diskus 250/50) 1 puff INH RQ12 [facility] Last Admin: 07/27/16 07:19 Dose: Not Given Tamsulosin HCl (Flomax) 0.4 mg PO DAILY [facility] Last Admin: 07/27/16 09:57 Dose: 0.4 mg Tiotropium [place] (Spiriva) 18 mcg INH RQ24 [facility] Tramadol HCl (Ultram) 50 mg PO Q12 PRN PRN Reason: Pain, moderate (4-7) Last Admin: 07/20/16 05:05 Dose: 50 mg - Labs Labs: 07/27/16 06:03 07/27/16 06:03
[2016-07-28] MEDS: Albuterol-Ipratrop 3 mg / 0.5 (3 ml) UD INH SCH ×4 (02:14→19:58)
[2016-07-28] MEDS: Levothyroxine 25 MCG TAB PO SCH (05:51)
[2016-07-28 06:31] LABS: BASO # 0.1 K/uL (0.0-0.2); EOS # 0.1 K/uL (0.0-0.7); EOS % 2.3 % (0.0-4.0); HEMATOCRIT 31.1 % (35.0-51.0); LYMPH # 2.2 K/uL (1.0-4.3); LYMPH % 40.2 % (20.0-40.0); MEAN CORPUSCULAR HEMOGLOBIN 27.3 pg (27.0-31.0); MEAN CORPUSCULAR HGB CONC 32.4 g/dL (33.0-37.0); MONO # 0.6 K/uL (0.0-0.8); MONO % 11.2 % (0.0-10.0); NRBC % 0.1 % (0.0-2.0); WHITE BLOOD COUNT 5.5 K/uL (4.8-10.8)
[2016-07-28 06:40] LABS: CHLORIDE 103 mmol/L (98-107); POTASSIUM 3.8 mmol/L (3.6-5.2); SODIUM 137 mmol/L (132-148)
[2016-07-28 06:42] LABS: GFR AFRICAN-AMERICAN > 60
[2016-07-28 06:43] LABS: ALB/GLOB RATIO 0.9 (1.0-2.1); ALKALINE PHOSPHATASE 48 U/L (38-126); ALT/SGPT 13 U/L (21-72); AST/SGOT 13 U/L (17-59); BILIRUBIN,TOTAL 0.4 mg/dL (0.2-1.3); BLOOD UREA NITROGEN 19 mg/dL (9-20); CALCIUM 8.5 mg/dl (8.6-10.4); CARBON DIOXIDE 24 mmol/L (22-30); GLUCOSE,RANDOM 87 mg/dL (75-110); TOTAL PROTEIN 6.2 g/dL (6.3-8.3)
[2016-07-28] MEDS: (Novolog) Insulin Aspart, Recombinant 100 u/ml 10 ml vial SC SCH ×4 (08:15→21:14)
[2016-07-28] MEDS: Fluticasone-Salmeterol 250-50mcg Diskus INH SCH ×2 (09:07→19:58)
[2016-07-28] MEDS: Tiotropium 18 mcg Cap For Inhalation INH SCH (09:08)
[2016-07-28] MEDS: Pantoprazole 40 mg EC Tab PO SCH (10:43)
[2016-07-28] MEDS: guaiFENesin DM 200 mg-20 mg/10 ml UD PO SCH ×4 (10:44→18:39)
[2016-07-28] MEDS: Calcium Carbonate 500 mg Chewable Antacid Tab PO SCH ×3 (10:44→18:36)
--- NOTE | 2016-07-28 13:28 | CP.PCM.PN ---
Subjective - Date & Time of Evaluation Date of Evaluation: 07/28/16 Time of Evaluation: 07:40 - Subjective Subjective: clinically same Objective - Vital Signs/Intake and Output Vital Signs (last 24 hours): Temp Pulse Resp BP Pulse Ox 98.6 F 78 20 99/62 L 95 07/28/16 08:24 07/28/16 08:24 07/28/16 08:24 07/28/16 08:24 07/28/16 08:24 Intake and Output: 07/28/16 07/28/16 06:59 18:59 Intake Total 120 Balance 120 - Medications Medications: Current Medications Albuterol/Ipratropium (Duoneb 3 Mg/0.5 Mg (3 Ml) Ud) 3 ml INH RQ6 [facility] Last Admin: 07/28/16 13:22 Dose: 3 ml Aspirin (Aspirin Chewable) 81 mg PO DAILY [facility] Last Admin: 07/28/16 10:44 Dose: 81 mg Calcium Carbonate (Tums) 500 mg PO BID [facility] Last Admin: 07/28/16 11:24 Dose: Not Given Diphenhydramine HCl (Benadryl) 25 mg PO Q6 PRN PRN Reason: Extra Pyramidal Symptoms Ferrous Sulfate (Feosol) 325 mg PO DAILY [facility] Last Admin: 07/28/16 11:22 Dose: Not Given Guaifenesin/Dextromethorphan (Robitussin Dm) 10 ml PO TID [facility] Last Admin: 07/28/16 11:24 Dose: Not Given Haloperidol (Haldol) 2 mg PO Q8 PRN PRN Reason: Moderate Agitation Last Admin: 07/26/16 10:09 Dose: 2 mg Ceftriaxone Sodium 1 gm/ (Sodium Chloride) 100 mls @ 100 mls/hr IVPB Q24H [facility] Last Admin: 07/27/16 21:02 Dose: 100 mls/hr Insulin Aspart (Novolog) 0 unit SC ACHS [facility] PRN Reason: Protocol Last Admin: 07/28/16 11:23 Dose: Not Given Insulin Glargine (Lantus) 10 unit SC HS [facility] Last Admin: 07/27/16 21:50 Dose: Not Given Levothyroxine Sodium (Synthroid) 37.5 mcg PO DAILY@0630 [facility] Last Admin: 07/28/16 05:51 Dose: 37.5 mcg Lorazepam (Ativan) 1 mg IVP Q4H PRN PRN Reason: Agitation Last Admin: 07/26/16 16:40 Dose: 1 mg Lorazepam (Ativan) 0.5 mg PO Q8 [facility] Last Admin: 07/28/16 05:52 Dose: 0.5 mg Megestrol Acetate (Megace) 40 mg PO DAILY [facility] Last Admin: 07/28/16 10:48 Dose: 40 mg Metformin HCl (Glucophage) 1,000 mg PO BID [facility] Last Admin: 07/28/16 10:44 Dose: Not Given Mirtazapine (Remeron) 7.5 mg PO HS [facility] Last Admin: 07/27/16 21:07 Dose: 7.5 mg Pantoprazole Sodium (Protonix Ec Tab) 40 mg PO DAILY [facility] Last Admin: 07/28/16 10:43 Dose: 40 mg Quetiapine Fumarate (Seroquel) 25 mg PO DAILY [facility] Last Admin: 07/28/16 11:23 Dose: Not Given Quetiapine Fumarate (Seroquel) 50 mg PO [facility] Last Admin: 07/27/16 21:07 Dose: 50 mg Rosuvastatin Calcium (Crestor) 5 mg PO HS [facility] Last Admin: 07/27/16 21:07 Dose: 5 mg Fluticasone/Salmeterol (Advair Diskus 250/50) 1 puff INH RQ12 [facility] Last Admin: 07/28/16 09:07 Dose: Not Given Tamsulosin HCl (Flomax) 0.4 mg PO DAILY [facility] Last Admin: 07/28/16 10:43 Dose: 0.4 mg Tiotropium [place] (Spiriva) 18 mcg INH RQ24 [facility] Last Admin: 07/28/16 09:08 Dose: Not Given Tramadol HCl (Ultram) 50 mg PO Q12 PRN PRN Reason: Pain, moderate (4-7) Last Admin: 07/20/16 05:05 Dose: 50 mg - Labs Labs: 07/28/16 06:16 07/28/16 06:16 - Constitutional Appears: Well - Head Exam Head Exam: ATRAUMATIC, NORMAL INSPECTION, NORMOCEPHALIC - Eye Exam Eye Exam: EOMI, Normal appearance, PERRL Pupil Exam: NORMAL ACCOMODATION, PERRL - ENT Exam ENT Exam: Mucous Membranes Moist, Normal Exam - Neck Exam Neck Exam: Full ROM, Normal Inspection. absent: Lymphadenopathy - Respiratory Exam Respiratory Exam: Decreased Breath Sounds - Cardiovascular Exam Cardiovascular Exam: REGULAR RHYTHM, +S1, +S2 - GI/Abdominal Exam GI & Abdominal Exam: Soft, Diminished Bowel Sounds - Rectal Exam Rectal Exam: Deferred Assessment and Plan (1) Abnormal CXR (chest x-ray) Status: Acute (2) COPD (chronic obstructive pulmonary disease) Status: Acute (3) COPD exacerbation Status: Acute (4) Cardiac disease Status: Acute (5) Compression fracture of L2 Status: Acute (6) Depression Status: Acute (7) Diabetes Status: Acute - Assessment and Plan (Free Text) Plan: [facility] [place] [facility] Pulmo jovi same awaiting for dispositon spoke to social economist today
--- NOTE | 2016-07-28 19:21 | CP.PCM.PN ---
Subjective - Date & Time of Evaluation Date of Evaluation: 07/28/16 Time of Evaluation: 14:00 - Subjective Subjective: Dr. Solis service: Patient seen in room. Unable to obtain history from patient. But nursing staff reports no acute overnight events. Objective - Vital Signs/Intake and Output Vital Signs (last 24 hours): Temp Pulse Resp BP Pulse Ox 98.9 F 82 20 87/48 L 96 07/28/16 15:52 07/28/16 15:52 07/28/16 15:52 07/28/16 15:52 07/28/16 15:52 - Medications Medications: Current Medications Albuterol/Ipratropium (Duoneb 3 Mg/0.5 Mg (3 Ml) Ud) 3 ml INH RQ6 [facility] Last Admin: 07/28/16 13:22 Dose: 3 ml Aspirin (Aspirin Chewable) 81 mg PO DAILY [facility] Last Admin: 07/28/16 10:44 Dose: 81 mg Calcium Carbonate (Tums) 500 mg PO BID [facility] Last Admin: 07/28/16 18:36 Dose: 500 mg Diphenhydramine HCl (Benadryl) 25 mg PO Q6 PRN PRN Reason: Extra Pyramidal Symptoms Ferrous Sulfate (Feosol) 325 mg PO DAILY [facility] Last Admin: 07/28/16 11:22 Dose: Not Given Guaifenesin/Dextromethorphan (Robitussin Dm) 10 ml PO TID [facility] Last Admin: 07/28/16 18:39 Dose: 10 ml Haloperidol (Haldol) 2 mg PO Q8 PRN PRN Reason: Moderate Agitation Last Admin: 07/26/16 10:09 Dose: 2 mg Ceftriaxone Sodium 1 gm/ (Sodium Chloride) 100 mls @ 100 mls/hr IVPB Q24H [facility] Last Admin: 07/27/16 21:02 Dose: 100 mls/hr Insulin Aspart (Novolog) 0 unit SC [facility] PRN Reason: Protocol Last Admin: 07/28/16 17:04 Dose: Not Given Insulin Glargine (Lantus) 10 unit SC HS [facility] Last Admin: 07/27/16 21:50 Dose: Not Given Levothyroxine Sodium (Synthroid) 37.5 mcg PO DAILY@0630 [facility] Last Admin: 07/28/16 05:51 Dose: 37.5 mcg Lorazepam (Ativan) 1 mg IVP Q4H PRN PRN Reason: Agitation Last Admin: 07/26/16 16:40 Dose: 1 mg Lorazepam (Ativan) 0.5 mg PO Q8 [facility] Last Admin: 07/28/16 14:07 Dose: 0.5 mg Megestrol Acetate (Megace) 40 mg PO DAILY [facility] Last Admin: 07/28/16 10:48 Dose: 40 mg Metformin HCl (Glucophage) 1,000 mg PO BID [facility] Last Admin: 07/28/16 18:36 Dose: 1,000 mg Mirtazapine (Remeron) 7.5 mg PO HS [facility] Last Admin: 07/27/16 21:07 Dose: 7.5 mg Pantoprazole Sodium (Protonix Ec Tab) 40 mg PO DAILY [facility] Last Admin: 07/28/16 10:43 Dose: 40 mg Quetiapine Fumarate (Seroquel) 25 mg PO DAILY [facility] Last Admin: 07/28/16 11:23 Dose: Not Given Quetiapine Fumarate (Seroquel) 50 mg PO HS [facility] Last Admin: 07/27/16 21:07 Dose: 50 mg Rosuvastatin Calcium (Crestor) 5 mg PO HS [facility] Last Admin: 07/27/16 21:07 Dose: 5 mg Fluticasone/Salmeterol (Advair Diskus 250/50) 1 puff INH RQ12 [facility] Last Admin: 07/28/16 09:07 Dose: Not Given Tamsulosin HCl (Flomax) 0.4 mg PO DAILY [facility] Last Admin: 07/28/16 10:43 Dose: 0.4 mg Tiotropium [place] (Spiriva) 18 mcg INH RQ24 [facility] Last Admin: 07/28/16 09:08 Dose: Not Given Tramadol HCl (Ultram) 50 mg PO Q12 PRN PRN Reason: Pain, moderate (4-7) Last Admin: 07/20/16 05:05 Dose: 50 mg - Labs Labs: 07/28/16 06:16 07/28/16 06:16 - Constitutional Appears: Non-toxic, No Acute Distress - Head Exam Head Exam: NORMAL INSPECTION - Eye Exam Eye Exam: Normal appearance Pupil Exam: NORMAL ACCOMODATION - ENT Exam ENT Exam: Normal Exam - Neck Exam Neck Exam: Normal Inspection - Respiratory Exam Respiratory Exam: Clear to Ausculation Bilateral. absent: Rales, Rhonchi, Wheezes - Cardiovascular Exam Cardiovascular Exam: REGULAR RHYTHM, RRR, +S1, +S2. absent: Gallop, Rubs - GI/Abdominal Exam GI & Abdominal Exam: Soft, Normal Bowel Sounds. absent: Tenderness - Extremities Exam Extremities Exam: Normal Inspection - Back Exam Back Exam: NORMAL INSPECTION - Psychiatric Exam Psychiatric exam: Normal Affect, Normal Mood - Skin Skin Exam: Normal Color Assessment and Plan - Assessment and Plan (Free Text) Assessment: Patient is still here pending placement. He has been removed from other [place] [facility] care facilities because behavioral issues per social science instructor.
[2016-07-28] MEDS: (Lantus) Insulin Glargine, Recombinant SC SCH (21:14)
[2016-07-29] MEDS: Levothyroxine 25 MCG TAB PO SCH (06:54)
[2016-07-29] MEDS: Fluticasone-Salmeterol 250-50mcg Diskus INH SCH ×2 (08:05→20:09)
[2016-07-29] MEDS: Tiotropium 18 mcg Cap For Inhalation INH SCH (08:05)
[2016-07-29] MEDS: (Novolog) Insulin Aspart, Recombinant 100 u/ml 10 ml vial SC SCH ×4 (08:10→21:51)
[2016-07-29] MEDS: guaiFENesin DM 200 mg-20 mg/10 ml UD PO SCH ×3 (10:29→17:52)
[2016-07-29] MEDS: Calcium Carbonate 500 mg Chewable Antacid Tab PO SCH ×2 (10:29→17:52)
[2016-07-29] MEDS: Pantoprazole 40 mg EC Tab PO SCH (10:29)
--- NOTE | 2016-07-29 11:03 | CP.PCM.PN ---
Subjective - Date & Time of Evaluation Date of Evaluation: 07/29/16 Time of Evaluation: 07:40 - Subjective Subjective: clinically same Objective - Vital Signs/Intake and Output Vital Signs (last 24 hours): Temp Pulse Resp BP Pulse Ox 98.4 F 82 20 108/65 95 07/29/16 08:00 07/29/16 08:00 07/29/16 08:00 07/29/16 08:00 07/29/16 08:00 Intake and Output: 07/29/16 07/29/16 06:59 18:59 Intake Total 560 Balance 560 - Medications Medications: Current Medications Aspirin (Aspirin Chewable) 81 mg PO DAILY [facility] Last Admin: 07/29/16 10:30 Dose: Not Given Calcium Carbonate (Tums) 500 mg PO BID [facility] Last Admin: 07/29/16 10:29 Dose: Not Given Diphenhydramine HCl (Benadryl) 25 mg PO Q6 PRN PRN Reason: Extra Pyramidal Symptoms Ferrous Sulfate (Feosol) 325 mg PO DAILY [facility] Last Admin: 07/29/16 10:27 Dose: Not Given Guaifenesin/Dextromethorphan (Robitussin Dm) 10 ml PO TID [facility] Last Admin: 07/29/16 10:29 Dose: Not Given Haloperidol (Haldol) 2 mg PO Q8 PRN PRN Reason: Moderate Agitation Last Admin: 07/26/16 10:09 Dose: 2 mg Insulin Aspart (Novolog) 0 unit SC [facility] PRN Reason: Protocol Last Admin: 07/29/16 08:10 Dose: Not Given Insulin Glargine (Lantus) 10 unit SC [facility] Last Admin: 07/28/16 21:14 Dose: Not Given Levothyroxine Sodium (Synthroid) 37.5 mcg PO DAILY@0630 [facility] Last Admin: 07/29/16 06:54 Dose: 37.5 mcg Lorazepam (Ativan) 1 mg IVP Q4H PRN PRN Reason: Agitation Last Admin: 07/26/16 16:40 Dose: 1 mg Lorazepam (Ativan) 0.5 mg PO Q8 [facility] Last Admin: 07/29/16 06:54 Dose: 0.5 mg Megestrol Acetate (Megace) 40 mg PO DAILY [facility] Last Admin: 07/29/16 10:28 Dose: Not Given Metformin HCl (Glucophage) 1,000 mg PO BID [facility] Last Admin: 07/29/16 10:28 Dose: Not Given Mirtazapine (Remeron) 7.5 mg PO [facility] Last Admin: 07/28/16 21:04 Dose: 7.5 mg Pantoprazole Sodium (Protonix Ec Tab) 40 mg PO DAILY [facility] Last Admin: 07/29/16 10:29 Dose: Not Given Quetiapine Fumarate (Seroquel) 25 mg PO DAILY [facility] Last Admin: 07/29/16 10:29 Dose: Not Given Quetiapine Fumarate (Seroquel) 50 mg PO HS [facility] Last Admin: 07/28/16 21:03 Dose: 50 mg Rosuvastatin Calcium (Crestor) 5 mg PO [facility] Last Admin: 07/28/16 21:04 Dose: 5 mg Fluticasone/Salmeterol (Advair Diskus 250/50) 1 puff INH RQ12 [facility] Last Admin: 07/29/16 08:05 Dose: 1 puff Tamsulosin HCl (Flomax) 0.4 mg PO DAILY [facility] Last Admin: 07/29/16 10:28 Dose: Not Given Tiotropium [place] (Spiriva) 18 mcg INH RQ24 [facility] Last Admin: 07/29/16 08:05 Dose: Not Given Tramadol HCl (Ultram) 50 mg PO Q12 PRN PRN Reason: Pain, moderate (4-7) Last Admin: 07/20/16 05:05 Dose: 50 mg - Labs Labs: 07/28/16 06:16 07/28/16 06:16 - Constitutional Appears: Well - Head Exam Head Exam: ATRAUMATIC, NORMAL INSPECTION, NORMOCEPHALIC - Eye Exam Eye Exam: EOMI, Normal appearance, PERRL Pupil Exam: NORMAL ACCOMODATION, PERRL - ENT Exam ENT Exam: Mucous Membranes Moist, Normal Exam - Neck Exam Neck Exam: Full ROM, Normal Inspection. absent: Lymphadenopathy - Respiratory Exam Respiratory Exam: Decreased Breath Sounds - Cardiovascular Exam Cardiovascular Exam: REGULAR RHYTHM, +S1, +S2 - GI/Abdominal Exam GI & Abdominal Exam: Soft, Diminished Bowel Sounds - Rectal Exam Rectal Exam: Deferred Assessment and Plan (1) Abnormal CXR (chest x-ray) Status: Acute (2) COPD (chronic obstructive pulmonary disease) Status: Acute (3) COPD exacerbation Status: Acute (4) Cardiac disease Status: Acute (5) Compression fracture of L2 Status: Acute (6) Depression Status: Acute (7) Diabetes Status: Acute - Assessment and Plan (Free Text) Plan: labs ok jovi same still confused med reviewed removed from other [place] inspector care facilities manager social responsibility palliative consult
--- NOTE | 2016-07-29 14:11 | CP.PCM.CON ---
History of Present Illness - History of Present Illness History of Present Illness: Palliative consult Requested by Luba Solis MD Reason: Goals of care discussion Patient is a 81 yo male admitted from [place] due to noncompliance and suicidal ideation. Patient was seen here by the psychiatrist and diagnosed with depression. Since admission, patient has demonstrated angry behavior and was placed on observation. Patient was noticed to bee SOB and CT chest showed emphysema and lung nodules. Patient is hemodinamically stable with lab work mostly WNL. Patient takes a antidepression and anianxiety meds. PMH: CHF, HTN, DM, asthma Soc. 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 Hx: Unknown Review of Systems - Constitutional Constitutional: Weakness - EENT Eyes: absent: As Per HPI, Blind Spots, Blurred Vision, Change in Vision, Decreased Night Vision, Diplopia, Discharge, Dry Eye, Exophthalmos, Floaters, Irritation, Itchy Eyes, Loss of Peripheral Vision, Pain, Photophobia, Requires Corrective Lenses, Sees Flashes, Spots in Vision, Tunnel Vision, Other Visual Disturbances, Loss of Vision, Other Ears: absent: As Per HPI, Decreased Hearing, Ear Discharge, Ear Pain, Tinnitus, Abnormal Hearing, Disequilibrium, Dizziness, Other Nose/Mouth/Throat: absent: As Per HPI, Epistaxis, Nasal Congestion, Nasal Discharge, Nasal Obstruction, Nasal Trauma, Nose Pain, Post Nasal Drip, Sinus Pain, Sinus Pressure, Bleeding Gums, Change in Voice, Dental Pain, Dry Mouth, Dysphagia, Halitosis, Hoarsness, Lip Swelling, Mouth Lesions, Mouth Pain, Odynophagia, Sore Throat, Throat Swelling, Tongue Swelling, Facial Pain, Neck Pain, Neck Mass, Other - Cardiovascular Cardiovascular: absent: As Per HPI, Acrocyanosis, Chest Pain, Chest Pain at Rest , Chest Pain with Activity, Claudication, Diaphoresis, Dyspnea, Dyspnea on Exertion, Edema, Irregular Heart Rhythm, Pain Radiating to Arm/Neck/Jaw, Leg Edema, Leg Ulcers, Lightheadedness, Orthopnea, Palpitations, Paroxysmal Nocturnal Dyspnea, Pedal Edema, Radiating Pain, Rapid Heart Rate, Slow Heart Rate, Syncope, Other - Respiratory Respiratory: Dyspnea - Gastrointestinal Gastrointestinal: absent: As Per HPI, Abdominal Pain, Belching, Bloating, Change in Bowel Habits, Change in Stool Character, Coffee Ground Emesis, Constipation, Cramping, Diarrhea, Dyspepsia, Dysphagia, Early Satiety, Excessive Flatus, Fecal Incontinence, Heartburn, Hematemesis, Hematochezia, Loose Stools, Melena, Nausea, Odynophagia, Temesmus, Vomiting, Other - Genitourinary Genitourinary: absent: As Per HPI, Change in Urinary Stream, Difficulty Urinating, Dysuria, Flank Pain, Hematuria, Pyuria, Nocturia, Urinary Incontinence, Urinary Frequency, Urinary Hesitance, Urinary Urgency, Voiding Freq/Small Amts, Freq UTI, Hx Renal/Bladder Calculi, Hx /Renal Surgery, Bladder Distension, Other - Musculoskeletal Musculoskeletal: Muscle Weakness - Integumentary Integumentary: Dry Skin - Neurological Neurological: Focal Weakness - Psychiatric Psychiatric: Anxiety, Hopelessness, Irritability - Endocrine Endocrine: absent: As Per HPI, Change in Body Appearance, Change in Libido, Cold Intolorance, Deepening of Voice, Excessive Sweating, Fatigue, Flushing, Heat Intolorance, Increase in Ring/Shoe/Hat Size, Palpitations, Polydipsia, Polyphagia, Polyuria, Other - Hematologic/Lymphatic Hematologic: absent: As Per HPI, Easy Bleeding, Easy Bruising, Lymphadenopathy, Other Past Patient History - Past Medical History & Family History Past Medical History?: Yes - Past Social History Smoking Status: Unknown If Ever Smoked - CARDIAC Hx Congestive Heart Failure: Yes Hx Hypertension: Yes - PULMONARY Hx Chronic Obstructive Pulmonary Disease (COPD): Yes - NEUROLOGICAL Hx Alzheimer's Disease: Yes Hx Dementia: Yes - ENDOCRINE/METABOLIC Hx Diabetes Mellitus Type 2: Yes Hx Hypothyroidism: Yes - MUSCULOSKELETAL/RHEUMATOLOGICAL Hx Arthritis: Yes - PSYCHIATRIC Hx Depression: Yes Hx Substance Use: No - SURGICAL HISTORY Hx Appendectomy: Yes - ANESTHESIA Hx Anesthesia: Yes Hx Anesthesia Reactions: No Hx Malignant Hyperthermia: No Has any member of the family had a problem w/ anesthesia?: No Meds Allergies/Adverse Reactions: Allergies Allergy/AdvReac Type Severity Reaction Status Date / Time No Known Allergies Allergy Unverified 07/15/16 13:18 - Medications Medications: Current Medications Aspirin (Aspirin Chewable) 81 mg PO DAILY [facility] Last Admin: 07/29/16 10:30 Dose: Not Given Calcium Carbonate (Tums) 500 mg PO BID [facility] Last Admin: 07/29/16 10:29 Dose: Not Given Diphenhydramine HCl (Benadryl) 25 mg PO Q6 PRN PRN Reason: Extra Pyramidal Symptoms Ferrous Sulfate (Feosol) 325 mg PO DAILY [facility] Last Admin: 07/29/16 10:27 Dose: Not Given Guaifenesin/Dextromethorphan (Robitussin Dm) 10 ml PO TID [facility] Last Admin: 07/29/16 10:29 Dose: Not Given Haloperidol (Haldol) 2 mg PO Q8 PRN PRN Reason: Moderate Agitation Last Admin: 07/26/16 10:09 Dose: 2 mg Insulin Aspart (Novolog) 0 unit SC [facility] PRN Reason: Protocol Last Admin: 07/29/16 12:16 Dose: Not Given Insulin Glargine (Lantus) 10 unit SC [facility] Last Admin: 07/28/16 21:14 Dose: Not Given Levothyroxine Sodium (Synthroid) 37.5 mcg PO DAILY@0630 [facility] Last Admin: 07/29/16 06:54 Dose: 37.5 mcg Lorazepam (Ativan) 1 mg IVP Q4H PRN PRN Reason: Agitation Last Admin: 07/26/16 16:40 Dose: 1 mg Lorazepam (Ativan) 0.5 mg PO Q8 [facility] Last Admin: 07/29/16 06:54 Dose: 0.5 mg Megestrol Acetate (Megace) 40 mg PO DAILY [facility] Last Admin: 07/29/16 10:28 Dose: Not Given Metformin HCl (Glucophage) 1,000 mg PO BID [facility] Last Admin: 07/29/16 10:28 Dose: Not Given Mirtazapine (Remeron) 7.5 mg PO [facility] Last Admin: 07/28/16 21:04 Dose: 7.5 mg Pantoprazole Sodium (Protonix Ec Tab) 40 mg PO DAILY [facility] Last Admin: 07/29/16 10:29 Dose: Not Given Quetiapine Fumarate (Seroquel) 25 mg PO DAILY [facility] Last Admin: 07/29/16 10:29 Dose: Not Given Quetiapine Fumarate (Seroquel) 50 mg PO [facility] Last Admin: 07/28/16 21:03 Dose: 50 mg Rosuvastatin Calcium (Crestor) [address] [facility] Last Admin: 07/28/16 21:04 Dose: 5 mg Fluticasone/Salmeterol (Advair Diskus 250/50) 1 puff INH RQ12 [facility] Last Admin: 07/29/16 08:05 Dose: 1 puff Tamsulosin HCl (Flomax) 0.4 mg PO DAILY [facility] Last Admin: 07/29/16 10:28 Dose: Not Given Tiotropium [place] (Spiriva) 18 mcg INH RQ24 [facility] Last Admin: 07/29/16 08:05 Dose: Not Given Tramadol HCl (Ultram) 50 mg PO Q12 PRN PRN Reason: Pain, moderate (4-7) Last Admin: 07/20/16 05:05 Dose: 50 mg Physical Exam - Constitutional Appears: No Acute Distress - Head Exam Head Exam: ATRAUMATIC, NORMAL INSPECTION, NORMOCEPHALIC - Eye Exam Eye Exam: EOMI, Normal appearance, PERRL Pupil Exam: NORMAL ACCOMODATION, PERRL - ENT Exam ENT Exam: Mucous Membranes Moist, Normal Exam - Neck Exam Neck exam: Positive for: Normal Inspection - Respiratory Exam Respiratory Exam: Decreased Breath Sounds, NORMAL BREATHING PATTERN - Cardiovascular Exam Cardiovascular Exam: REGULAR RHYTHM, +S1, +S2 - GI/Abdominal Exam GI & Abdominal Exam: Normal Bowel Sounds - Rectal Exam Rectal Exam: Deferred - Exam Exam: NORMAL INSPECTION - Extremities Exam Extremities exam: Positive for: normal inspection - Back Exam Back exam: NORMAL INSPECTION - Neurological Exam Neurological exam: Alert, Altered - Psychiatric Exam Psychiatric exam: Flat Affect - Skin Skin Exam: Dry Results - Vital Signs Recent Vital Signs: Last Vital Signs Temp 98.4 F 07/29/16 08:00 Pulse 82 07/29/16 08:00 Resp 20 07/29/16 08:00 BP 108/65 07/29/16 08:00 Pulse Ox 95 07/29/16 08:00 - Labs Result Diagrams: 07/28/16 06:16 07/28/16 06:16 Labs: Laboratory Results - last 24 hr 07/28/16 07/28/16 07/29/16 16:32 21:13 07:16 POC Glucose (mg/dL) 196 H 214 H 141 H 07/29/16 12:15 POC Glucose (mg/dL) 135 H Assessment & Plan - Assessment and Plan (Free Text) Assessment: Palliative consult Code status: Full Code, there is no advance directive on chart, PPS 20% I reviewed all medical records, and diagnostic studies, examined and interviewed patient in the bed. Translation provided using [employer] translation. Patient is alert, disoriented to place and time. Affect is flat. Patient looks angry but cooperative and behaves appropriately. Patient did not know which hospital he was in and what year was it. Patient answered" year 63". Quality of life issues discussed. 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 Patient express anger over " loosing it all" and " being treated as a poor man". Patient blames everybody else for his current status. His biggest complains is that he is not respected . Patient also feels deprived of his belongings, privacy and freedom. Patient feels trapped in close space. I reassured patient of his safety when at the facility and suggested that [facility] the best place for him as he is unable to support his life alone in the community. He agreed. Code status not discussed as I did not think patient had decision making capacity. Impression * Patient is deeply depressed with fixation on the past * There is some paranoia in behavior as patient feels people is there to " get him" * There is not decision making capacity * High risk for injury due to unpredicted behavior * Needs moderate assistance with ADls Suggestion * Patient seems stable enough for discharge to NH * Promote safety
[2016-07-29] MEDS: (Lantus) Insulin Glargine, Recombinant SC SCH (21:50)
[2016-07-30] MEDS: Levothyroxine 25 MCG TAB PO SCH (05:59)
[2016-07-30] MEDS: (Novolog) Insulin Aspart, Recombinant 100 u/ml 10 ml vial SC SCH ×4 (07:50→21:29)
[2016-07-30 07:56] LABS: BASO % 0.6 % (0.0-2.0); EOS # 0.1 K/uL (0.0-0.7); EOS % 1.4 % (0.0-4.0); HEMATOCRIT 28.8 % (35.0-51.0); LYMPH # 2.5 K/uL (1.0-4.3); LYMPH % 31.5 % (20.0-40.0); MEAN CELL VOLUME 85.5 fL (80.0-94.0); MEAN CORPUSCULAR HGB CONC 31.6 g/dL (33.0-37.0); MEAN PLATELET VOLUME 8.4 fL (7.2-11.7); MONO # 0.8 K/uL (0.0-0.8); MONO % 9.7 % (0.0-10.0); RED CELL DISTRIBUTION WIDTH 21.2 % (11.5-14.5); WHITE BLOOD COUNT 7.8 K/uL (4.8-10.8)
[2016-07-30 08:42] LABS: CHLORIDE 107 mmol/L (98-107); POTASSIUM 3.5 mmol/L (3.6-5.2); SODIUM 138 mmol/L (132-148)
[2016-07-30 08:44] LABS: GFR AFRICAN-AMERICAN > 60
[2016-07-30 08:45] LABS: ALB/GLOB RATIO 0.8 (1.0-2.1); ALKALINE PHOSPHATASE 45 U/L (38-126); ALT/SGPT 20 U/L (21-72); AST/SGOT 13 U/L (17-59); BILIRUBIN,TOTAL 0.3 mg/dL (0.2-1.3); BLOOD UREA NITROGEN 23 mg/dL (9-20); CALCIUM 8.3 mg/dl (8.6-10.4); CARBON DIOXIDE 22 mmol/L (22-30); GLUCOSE,RANDOM 96 mg/dL (75-110); TOTAL PROTEIN 5.9 g/dL (6.3-8.3)
[2016-07-30] MEDS: Fluticasone-Salmeterol 250-50mcg Diskus INH SCH ×2 (10:21→19:59)
[2016-07-30] MEDS: Tiotropium 18 mcg Cap For Inhalation INH SCH (10:21)
[2016-07-30] MEDS: Calcium Carbonate 500 mg Chewable Antacid Tab PO SCH ×2 (10:28→17:26)
[2016-07-30] MEDS: guaiFENesin DM 200 mg-20 mg/10 ml UD PO SCH ×4 (10:28→17:27)
[2016-07-30] MEDS: Pantoprazole 40 mg EC Tab PO SCH (10:28)
--- NOTE | 2016-07-30 16:08 | CP.PCM.PN ---
Subjective - Date & Time of Evaluation Date of Evaluation: 07/30/16 Time of Evaluation: 09:10 - Subjective Subjective: Dr. Solis's service: Patient seen and examined in room this AM. Patient says chest pain and cough have improved since the last time I saw him. Patient denies fever, chills, abdominal pain. Objective - Vital Signs/Intake and Output Vital Signs (last 24 hours): Temp Pulse Resp BP Pulse Ox 97.4 F L 72 20 102/64 98 07/30/16 08:00 07/30/16 08:00 07/30/16 08:00 07/30/16 08:00 07/30/16 08:00 Intake and Output: 07/30/16 07/30/16 06:59 18:59 Intake Total 350 120 Balance 350 120 - Medications Medications: Current Medications Aspirin (Aspirin Chewable) 81 mg PO DAILY [facility] Last Admin: 07/30/16 10:28 Dose: 81 mg Calcium Carbonate (Tums) 500 mg PO BID [facility] Last Admin: 07/30/16 10:28 Dose: 500 mg Diphenhydramine HCl (Benadryl) 25 mg PO Q6 PRN PRN Reason: Extra Pyramidal Symptoms Ferrous Sulfate (Feosol) 325 mg PO DAILY [facility] Last Admin: 07/30/16 10:29 Dose: 325 mg Guaifenesin/Dextromethorphan (Robitussin Dm) 10 ml PO TID [facility] Last Admin: 07/30/16 13:58 Dose: Not Given Haloperidol (Haldol) 2 mg PO Q8 PRN PRN Reason: Moderate Agitation Last Admin: 07/26/16 10:09 Dose: 2 mg Insulin Aspart (Novolog) 0 unit SC [facility] PRN Reason: Protocol Last Admin: 07/30/16 12:42 Dose: 2 unit Insulin Glargine (Lantus) 10 unit SC HS [facility] Last Admin: 07/29/16 21:50 Dose: Not Given Levothyroxine Sodium (Synthroid) 37.5 mcg PO DAILY@0630 [facility] Last Admin: 07/30/16 05:59 Dose: 37.5 mcg Lorazepam (Ativan) 1 mg IVP Q4H PRN PRN Reason: Agitation Last Admin: 07/26/16 16:40 Dose: 1 mg Lorazepam (Ativan) 0.5 mg PO Q8 [facility] Last Admin: 07/30/16 13:57 Dose: Not Given Megestrol Acetate (Megace) 40 mg PO DAILY [facility] Last Admin: 07/30/16 10:29 Dose: 40 mg Metformin HCl (Glucophage) 1,000 mg PO BID [facility] Last Admin: 07/30/16 10:30 Dose: Not Given Mirtazapine (Remeron) 7.5 mg PO HS [facility] Last Admin: 07/29/16 21:30 Dose: 7.5 mg Pantoprazole Sodium (Protonix Ec Tab) 40 mg PO DAILY [facility] Last Admin: 07/30/16 10:28 Dose: 40 mg Quetiapine Fumarate (Seroquel) 25 mg PO DAILY [facility] Last Admin: 07/30/16 10:29 Dose: 25 mg Quetiapine Fumarate (Seroquel) 50 mg PO HS [facility] Last Admin: 07/29/16 21:30 Dose: 50 mg Rosuvastatin Calcium (Crestor) [address] [facility] Last Admin: 07/29/16 21:29 Dose: 5 mg Fluticasone/Salmeterol (Advair Diskus 250/50) 1 puff INH RQ12 [facility] Last Admin: 07/30/16 10:21 Dose: Not Given Tamsulosin HCl (Flomax) 0.4 mg PO DAILY [facility] Last Admin: 07/30/16 10:28 Dose: 0.4 mg Tiotropium [place] (Spiriva) 18 mcg INH RQ24 [facility] Last Admin: 07/30/16 10:21 Dose: Not Given Tramadol HCl (Ultram) 50 mg PO Q12 PRN PRN Reason: Pain, moderate (4-7) Last Admin: 07/20/16 05:05 Dose: 50 mg - Labs Labs: 07/30/16 07:33 07/30/16 07:33 - Constitutional Appears: Non-toxic, No Acute Distress, Cachectic - Head Exam Head Exam: NORMAL INSPECTION - Eye Exam Eye Exam: EOMI - ENT Exam ENT Exam: Mucous Membranes Moist - Respiratory Exam Respiratory Exam: Clear to Ausculation Bilateral, NORMAL BREATHING PATTERN. absent: Rales, Rhonchi, Wheezes - Cardiovascular Exam Cardiovascular Exam: REGULAR RHYTHM, +S1, +S2. absent: Gallop, Rubs - GI/Abdominal Exam GI & Abdominal Exam: Soft, Normal Bowel Sounds. absent: Tenderness - Extremities Exam Extremities Exam: Normal Capillary Refill. absent: Pedal Edema - Neurological Exam Neurological Exam: Alert, Awake - Psychiatric Exam Psychiatric exam: Normal Affect, Normal Mood - Skin Skin Exam: Normal Color, Warm Assessment and Plan - Assessment and Plan (Free Text) Assessment: Chest Pain JAREK negative EKG with LBBB as prior EKGs have also shown Cardio consult - Dr. Marinelli - help appreciated ECHO - left ventricular is normal size. there is mild to moderate concentric left ventricular hypertrophy. the systolic function is midly to moderately impaired. septal hypokinesis. mild to moderate aortic regurgitation. mild pulmonary hypertension. (please see full report) Nodular opacity in chest Pulm consult - Dr. Hayden - help appreciated Chest CT - extensive bilateral fine nodular interstitial infiltrate both lower lobes. dense pleural based consolidation right lower lobe. subpleural emphysema. mild centrilobular pulmonary emphysema. left upper lobe nodules. 7mm and 9mm. reccomend f/u noncontrast chest CT in 3 months. Multiple left upper lobe nodular calcifications, likely granulomatous. probable small airways disease posterior right upper lobe. findings are nonspecific and may reflect infection or inflammatory disease. Patient needs to f/u outpatient per Dr. Hayden COPD Pulm consult - Dr. Hayden - help appreciated Advair and Spiriva Psychosis Psych consult - Dr. Galicia - f/u recs Continue Ativan 1mg IVP Q4H PRN agiation Depression 07/30: improved 07/24: Suicidal ideations Psych reconsulted - Dr. Galicia - f/u recs 07/23: Pending placement 07/22: Patient is pending placement. 07/21 continue current management, add megace for appetite stimulant. Psych Dr. Bajwa consulted, help appreciated. Continue Remeron and Seroquel. Ativan 1mg IVP q4H PRN for agitation. DM RISS, accuchecks. Lantus 10U SC HS, Metformin Hypothyroid Continue synthroid. COPD Duoneb q6. Spiriva. Hx of cardiac disease Continue Eliquis, ASA, Crestor. Prophylactic measure eliquis, Protonix. Social work referral. Management per Dr. Solis
--- NOTE | 2016-07-30 17:13 | CP.PCM.PN ---
Subjective - Date & Time of Evaluation Date of Evaluation: 07/30/16 Time of Evaluation: 07:20 - Subjective Subjective: clinically same Objective - Vital Signs/Intake and Output Vital Signs (last 24 hours): Temp Pulse Resp BP Pulse Ox 97.9 F 67 20 109/60 99 07/30/16 16:00 07/30/16 16:00 07/30/16 16:00 07/30/16 16:00 07/30/16 16:00 Intake and Output: 07/30/16 07/30/16 06:59 18:59 Intake Total 350 120 Balance 350 120 - Medications Medications: Current Medications Aspirin (Aspirin Chewable) 81 mg PO DAILY [facility] Last Admin: 07/30/16 10:28 Dose: 81 mg Calcium Carbonate (Tums) 500 mg PO BID [facility] Last Admin: 07/30/16 10:28 Dose: 500 mg Diphenhydramine HCl (Benadryl) 25 mg PO Q6 PRN PRN Reason: Extra Pyramidal Symptoms Ferrous Sulfate (Feosol) 325 mg PO DAILY [facility] Last Admin: 07/30/16 10:29 Dose: 325 mg Guaifenesin/Dextromethorphan (Robitussin Dm) 10 ml PO TID [facility] Last Admin: 07/30/16 13:58 Dose: Not Given Haloperidol (Haldol) 2 mg PO Q8 PRN PRN Reason: Moderate Agitation Last Admin: 07/26/16 10:09 Dose: 2 mg Insulin Aspart (Novolog) 0 unit SC [facility] PRN Reason: Protocol Last Admin: 07/30/16 12:42 Dose: 2 unit Insulin Glargine (Lantus) 10 unit SC [facility] Last Admin: 07/29/16 21:50 Dose: Not Given Levothyroxine Sodium (Synthroid) 37.5 mcg PO DAILY@0630 [facility] Last Admin: 07/30/16 05:59 Dose: 37.5 mcg Lorazepam (Ativan) 1 mg IVP Q4H PRN PRN Reason: Agitation Last Admin: 07/26/16 16:40 Dose: 1 mg Lorazepam (Ativan) 0.5 mg PO Q8 [facility] Last Admin: 07/30/16 13:57 Dose: Not Given Megestrol Acetate (Megace) 40 mg PO DAILY [facility] Last Admin: 07/30/16 10:29 Dose: 40 mg Metformin HCl (Glucophage) 1,000 mg PO BID [facility] Last Admin: 07/30/16 10:30 Dose: Not Given Mirtazapine (Remeron) 7.5 mg PO [facility] Last Admin: 07/29/16 21:30 Dose: 7.5 mg Pantoprazole Sodium (Protonix Ec Tab) 40 mg PO DAILY [facility] Last Admin: 07/30/16 10:28 Dose: 40 mg Quetiapine Fumarate (Seroquel) 25 mg PO DAILY [facility] Last Admin: 07/30/16 10:29 Dose: 25 mg Quetiapine Fumarate (Seroquel) 50 mg PO HS [facility] Last Admin: 07/29/16 21:30 Dose: 50 mg Rosuvastatin Calcium (Crestor) 5 mg PO [facility] Last Admin: 07/29/16 21:29 Dose: 5 mg Fluticasone/Salmeterol (Advair Diskus 250/50) 1 puff INH RQ12 [facility] Last Admin: 07/30/16 10:21 Dose: Not Given Tamsulosin HCl (Flomax) 0.4 mg PO DAILY [facility] Last Admin: 07/30/16 10:28 Dose: 0.4 mg Tiotropium [place] (Spiriva) 18 mcg INH RQ24 [facility] Last Admin: 07/30/16 10:21 Dose: Not Given Tramadol HCl (Ultram) 50 mg PO Q12 PRN PRN Reason: Pain, moderate (4-7) Last Admin: 07/20/16 05:05 Dose: 50 mg - Labs Labs: 07/30/16 07:33 07/30/16 07:33 - Constitutional Appears: Well - Head Exam Head Exam: ATRAUMATIC, NORMAL INSPECTION, NORMOCEPHALIC - Eye Exam Eye Exam: EOMI, Normal appearance, PERRL Pupil Exam: NORMAL ACCOMODATION, PERRL - ENT Exam ENT Exam: Mucous Membranes Moist, Normal Exam - Neck Exam Neck Exam: Full ROM, Normal Inspection. absent: Lymphadenopathy - Respiratory Exam Respiratory Exam: Decreased Breath Sounds - Cardiovascular Exam Cardiovascular Exam: REGULAR RHYTHM, +S1, +S2 - GI/Abdominal Exam GI & Abdominal Exam: Soft, Diminished Bowel Sounds - Rectal Exam Rectal Exam: Deferred Assessment and Plan (1) Abnormal CXR (chest x-ray) Status: Acute (2) COPD (chronic obstructive pulmonary disease) Status: Acute (3) COPD exacerbation Status: Acute (4) Cardiac disease Status: Acute (5) Compression fracture of L2 Status: Acute (6) Depression Status: Acute (7) Diabetes Status: Acute - Assessment and Plan (Free Text) Plan: med reviewed Dr Garett Marinelli labs ok seroquel mirtazapine jovi same still confused
[2016-07-30] MEDS ORDERED: Potassium Chloride 10 mEq ER Tab PO STA (19:03)
[2016-07-30] MEDS: (Lantus) Insulin Glargine, Recombinant SC SCH (21:28)
[2016-07-31] MEDS: Levothyroxine 25 MCG TAB PO SCH (05:41)
[2016-07-31] MEDS: (Novolog) Insulin Aspart, Recombinant 100 u/ml 10 ml vial SC SCH ×4 (08:38→21:53)
[2016-07-31] MEDS: Fluticasone-Salmeterol 250-50mcg Diskus INH SCH ×2 (08:46→21:15)
[2016-07-31] MEDS: Tiotropium 18 mcg Cap For Inhalation INH SCH (08:47)
[2016-07-31] MEDS: Pantoprazole 40 mg EC Tab PO SCH (09:30)
[2016-07-31] MEDS: Calcium Carbonate 500 mg Chewable Antacid Tab PO SCH ×2 (09:30→17:28)
[2016-07-31] MEDS: guaiFENesin DM 200 mg-20 mg/10 ml UD PO SCH ×3 (09:30→21:52)
[2016-07-31 11:11] LABS: BASO # 0.1 K/uL (0.0-0.2); BASO % 0.9 % (0.0-2.0); EOS # 0.1 K/uL (0.0-0.7); EOS % 0.8 % (0.0-4.0); HEMATOCRIT 29.4 % (35.0-51.0); LYMPH # 2.2 K/uL (1.0-4.3); LYMPH % 27.1 % (20.0-40.0); MEAN CELL VOLUME 84.8 fL (80.0-94.0); MEAN CORPUSCULAR HGB CONC 31.9 g/dL (33.0-37.0); MEAN PLATELET VOLUME 8.3 fL (7.2-11.7); MONO # 0.8 K/uL (0.0-0.8); MONO % 9.5 % (0.0-10.0); RED CELL DISTRIBUTION WIDTH 20.5 % (11.5-14.5); WHITE BLOOD COUNT 8.2 K/uL (4.8-10.8)
[2016-07-31 11:24] LABS: CHLORIDE 112 mmol/L (98-107); SODIUM 142 mmol/L (132-148)
[2016-07-31 11:26] LABS: ALB/GLOB RATIO 0.9 (1.0-2.1); AST/SGOT 11 U/L (17-59); BILIRUBIN,TOTAL 0.3 mg/dL (0.2-1.3); BLOOD UREA NITROGEN 29 mg/dL (9-20); CARBON DIOXIDE 22 mmol/L (22-30); GFR AFRICAN-AMERICAN > 60; TOTAL PROTEIN 6.2 g/dL (6.3-8.3)
[2016-07-31 11:27] LABS: ALKALINE PHOSPHATASE 46 U/L (38-126); ALT/SGPT 13 U/L (21-72); CALCIUM 8.9 mg/dl (8.6-10.4); GLUCOSE,RANDOM 189 mg/dL (75-110)
--- NOTE | 2016-07-31 11:54 | CP.PCM.PN ---
Subjective - Date & Time of Evaluation Date of Evaluation: 07/31/16 Time of Evaluation: 08:00 - Subjective Subjective: PGY2 Medicine Note - Dr. Loren Solis's service: Patient seen and examined at bedside this AM. Patient sleeping comfortably. Objective - Vital Signs/Intake and Output Vital Signs (last 24 hours): Temp Pulse Resp BP Pulse Ox 97.6 F 67 20 104/58 L 96 07/31/16 00:00 07/31/16 00:00 07/31/16 00:00 07/31/16 00:00 07/31/16 00:00 Intake and Output: 07/31/16 07/31/16 06:59 18:59 Intake Total 350 Output Total 350 Balance 0 - Medications Medications: Current Medications Aspirin (Aspirin Chewable) 81 mg PO DAILY [facility] Last Admin: 07/31/16 09:28 Dose: Not Given Calcium Carbonate (Tums) 500 mg PO BID [facility] Last Admin: 07/31/16 09:30 Dose: Not Given Diphenhydramine HCl (Benadryl) 25 mg PO Q6 PRN PRN Reason: Extra Pyramidal Symptoms Ferrous Sulfate (Feosol) 325 mg PO DAILY [facility] Last Admin: 07/31/16 09:28 Dose: Not Given Guaifenesin/Dextromethorphan (Robitussin Dm) 10 ml PO TID [facility] Last Admin: 07/31/16 09:30 Dose: Not Given Haloperidol (Haldol) 2 mg PO Q8 PRN PRN Reason: Moderate Agitation Last Admin: 07/26/16 10:09 Dose: 2 mg Insulin Aspart (Novolog) 0 unit SC [facility] PRN Reason: Protocol Last Admin: 07/31/16 08:38 Dose: 1 unit Insulin Glargine (Lantus) 10 unit SC HS [facility] Last Admin: 07/30/16 21:28 Dose: Not Given Levothyroxine Sodium (Synthroid) 37.5 mcg PO DAILY@0630 [facility] Last Admin: 07/31/16 05:41 Dose: 37.5 mcg Lorazepam (Ativan) 1 mg IVP Q4H PRN PRN Reason: Agitation Last Admin: 07/26/16 16:40 Dose: 1 mg Lorazepam (Ativan) 0.5 mg PO Q8 [facility] Last Admin: 07/31/16 05:41 Dose: 0.5 mg Megestrol Acetate (Megace) 40 mg PO DAILY [facility] Last Admin: 07/31/16 09:30 Dose: Not Given Metformin HCl (Glucophage) 1,000 mg PO BID [facility] Last Admin: 07/31/16 09:29 Dose: Not Given Mirtazapine (Remeron) 7.5 mg PO HS [facility] Pantoprazole Sodium (Protonix Ec Tab) 40 mg PO DAILY [facility] Last Admin: 07/31/16 09:30 Dose: Not Given Quetiapine Fumarate (Seroquel) 25 mg PO DAILY [facility] Last Admin: 07/31/16 09:30 Dose: Not Given Quetiapine Fumarate (Seroquel) 50 mg PO HS [facility] Last Admin: 07/30/16 21:18 Dose: 50 mg Rosuvastatin Calcium (Crestor) 5 mg PO HS [facility] Fluticasone/Salmeterol (Advair Diskus 250/50) 1 puff INH RQ12 [facility] Last Admin: 07/31/16 08:46 Dose: 1 puff Tamsulosin HCl (Flomax) 0.4 mg PO DAILY [facility] Last Admin: 07/31/16 09:28 Dose: Not Given Tiotropium [place] (Spiriva) 18 mcg INH RQ24 [facility] Last Admin: 07/31/16 08:47 Dose: Not Given Tramadol HCl (Ultram) 50 mg PO Q12 PRN PRN Reason: Pain, moderate (4-7) - Labs Labs: 07/31/16 11:04 07/31/16 11:04 - Constitutional Appears: Non-toxic, No Acute Distress - Head Exam Head Exam: NORMAL INSPECTION - Eye Exam Eye Exam: EOMI - ENT Exam ENT Exam: Mucous Membranes Moist - Respiratory Exam Respiratory Exam: Clear to Ausculation Bilateral, NORMAL BREATHING PATTERN. absent: Rales, Rhonchi, Wheezes - Cardiovascular Exam Cardiovascular Exam: REGULAR RHYTHM, +S1, +S2. absent: Gallop, Rubs, Murmur - GI/Abdominal Exam GI & Abdominal Exam: Soft, Normal Bowel Sounds. absent: Tenderness - Extremities Exam Extremities Exam: Normal Capillary Refill. absent: Pedal Edema - Skin Skin Exam: Normal Color, Warm Assessment and Plan - Assessment and Plan (Free Text) Assessment: Chest Pain JAREK negative EKG with LBBB as prior EKGs have also shown Cardio consult - Dr. Marinelli - help appreciated ECHO - left ventricular is normal size. there is mild to moderate concentric left ventricular hypertrophy. the systolic function is midly to moderately impaired. septal hypokinesis. mild to moderate aortic regurgitation. mild pulmonary hypertension. (please see full report) Nodular opacity in chest Pulm consult - Dr. Hayden - help appreciated Chest CT - extensive bilateral fine nodular interstitial infiltrate both lower lobes. dense pleural based consolidation right lower lobe. subpleural emphysema. mild centrilobular pulmonary emphysema. left upper lobe nodules. 7mm and 9mm. reccomend f/u noncontrast chest CT in 3 months. Multiple left upper lobe nodular calcifications, likely granulomatous. probable small airways disease posterior right upper lobe. findings are nonspecific and may reflect infection or inflammatory disease. Patient needs to f/u outpatient per Dr. Hayden COPD Pulm consult - Dr. Hayden - help appreciated Advair and Spiriva Psychosis Psych consult - Dr. Galicia - f/u recs Continue Ativan 1mg IVP Q4H PRN agiation Depression 07/30: improving 07/24: Suicidal ideations Psych reconsulted - Dr. Galicia - f/u recs 07/23: Pending placement 07/22: Patient is pending placement. 07/21 continue current management, add megace for appetite stimulant. Psych Dr. Bajwa consulted, help appreciated. Continue Remeron and Seroquel. Ativan 1mg IVP q4H PRN for agitation. DM RISS, accuchecks. Lantus 10U SC HS, Metformin Hypothyroid Continue synthroid. COPD Duoneb q6. Spiriva. Hx of cardiac disease Continue Eliquis, ASA, Crestor. Prophylactic measure eliquis, Protonix. Social work referral. Management per Dr. Solis
--- NOTE | 2016-07-31 12:11 | CP.PCM.PN ---
Subjective - Date & Time of Evaluation Date of Evaluation: 07/31/16 Time of Evaluation: 07:20 - Subjective Subjective: clinically same Objective - Vital Signs/Intake and Output Vital Signs (last 24 hours): Temp Pulse Resp BP Pulse Ox 97.6 F 67 20 104/58 L 96 07/31/16 00:00 07/31/16 00:00 07/31/16 00:00 07/31/16 00:00 07/31/16 00:00 Intake and Output: 07/31/16 07/31/16 06:59 18:59 Intake Total 350 Output Total 350 Balance 0 - Medications Medications: Current Medications Aspirin (Aspirin Chewable) 81 mg PO DAILY [facility] Last Admin: 07/31/16 09:28 Dose: Not Given Calcium Carbonate (Tums) 500 mg PO BID [facility] Last Admin: 07/31/16 09:30 Dose: Not Given Diphenhydramine HCl (Benadryl) 25 mg PO Q6 PRN PRN Reason: Extra Pyramidal Symptoms Ferrous Sulfate (Feosol) 325 mg PO DAILY [facility] Last Admin: 07/31/16 09:28 Dose: Not Given Guaifenesin/Dextromethorphan (Robitussin Dm) 10 ml PO TID [facility] Last Admin: 07/31/16 09:30 Dose: Not Given Haloperidol (Haldol) 2 mg PO Q8 PRN PRN Reason: Moderate Agitation Last Admin: 07/26/16 10:09 Dose: 2 mg Insulin Aspart (Novolog) 0 unit SC [facility] PRN Reason: Protocol Last Admin: 07/31/16 08:38 Dose: 1 unit Insulin Glargine (Lantus) 10 unit SC [facility] Last Admin: 07/30/16 21:28 Dose: Not Given Levothyroxine Sodium (Synthroid) 37.5 mcg PO DAILY@0630 [facility] Last Admin: 07/31/16 05:41 Dose: 37.5 mcg Lorazepam (Ativan) 1 mg IVP Q4H PRN PRN Reason: Agitation Last Admin: 07/26/16 16:40 Dose: 1 mg Lorazepam (Ativan) 0.5 mg PO Q8 [facility] Last Admin: 07/31/16 05:41 Dose: 0.5 mg Megestrol Acetate (Megace) 40 mg PO DAILY [facility] Last Admin: 07/31/16 09:30 Dose: Not Given Metformin HCl (Glucophage) 1,000 mg PO BID [facility] Last Admin: 07/31/16 09:29 Dose: Not Given Mirtazapine (Remeron) 7.5 mg PO [facility] Pantoprazole Sodium (Protonix Ec Tab) 40 mg PO DAILY [facility] Last Admin: 07/31/16 09:30 Dose: Not Given Quetiapine Fumarate (Seroquel) 25 mg PO DAILY [facility] Last Admin: 07/31/16 09:30 Dose: Not Given Quetiapine Fumarate (Seroquel) 50 mg PO HS [facility] Last Admin: 07/30/16 21:18 Dose: 50 mg Rosuvastatin Calcium (Crestor) 5 mg PO HS [facility] Fluticasone/Salmeterol (Advair Diskus 250/50) 1 puff INH RQ12 [facility] Last Admin: 07/31/16 08:46 Dose: 1 puff Tamsulosin HCl (Flomax) 0.4 mg PO DAILY [facility] Last Admin: 07/31/16 09:28 Dose: Not Given Tiotropium [place] (Spiriva) 18 mcg INH RQ24 [facility] Last Admin: 07/31/16 08:47 Dose: Not Given Tramadol HCl (Ultram) 50 mg PO Q12 PRN PRN Reason: Pain, moderate (4-7) - Labs Labs: 07/31/16 11:04 07/31/16 11:04 - Constitutional Appears: Well - Head Exam Head Exam: ATRAUMATIC, NORMAL INSPECTION, NORMOCEPHALIC - Eye Exam Eye Exam: EOMI, Normal appearance, PERRL Pupil Exam: NORMAL ACCOMODATION, PERRL - ENT Exam ENT Exam: Mucous Membranes Moist, Normal Exam - Neck Exam Neck Exam: Full ROM, Normal Inspection. absent: Lymphadenopathy - Respiratory Exam Respiratory Exam: Decreased Breath Sounds - Cardiovascular Exam Cardiovascular Exam: REGULAR RHYTHM, +S1, +S2 - GI/Abdominal Exam GI & Abdominal Exam: Soft, Diminished Bowel Sounds - Rectal Exam Rectal Exam: Deferred Assessment and Plan (1) Abnormal CXR (chest x-ray) Status: Acute (2) COPD (chronic obstructive pulmonary disease) Status: Acute (3) COPD exacerbation Status: Acute (4) Cardiac disease Status: Acute (5) Compression fracture of L2 Status: Acute (6) Depression Status: Acute (7) Diabetes Status: Acute - Assessment and Plan (Free Text) Plan: pt improving no suicidal ideations Dr Frida link on board jovi same
[2016-07-31] MEDS: (Lantus) Insulin Glargine, Recombinant SC SCH (21:57)
[2016-08-01] MEDS: Levothyroxine 25 MCG TAB PO SCH (06:00)
[2016-08-01] MEDS: Pantoprazole 40 mg EC Tab PO SCH (09:11)
[2016-08-01] MEDS: Calcium Carbonate 500 mg Chewable Antacid Tab PO SCH ×2 (09:13→17:37)
[2016-08-01] MEDS: guaiFENesin DM 200 mg-20 mg/10 ml UD PO SCH ×3 (09:13→17:37)
[2016-08-01] MEDS: (Novolog) Insulin Aspart, Recombinant 100 u/ml 10 ml vial SC SCH ×4 (09:28→21:32)
--- NOTE | 2016-08-01 10:13 | CP.PCM.PN ---
Subjective - Date & Time of Evaluation Date of Evaluation: 08/01/16 Time of Evaluation: 07:20 - Subjective Subjective: clinically same Objective - Vital Signs/Intake and Output Vital Signs (last 24 hours): Temp Pulse Resp BP Pulse Ox 98.7 F 69 20 110/65 97 08/01/16 06:00 08/01/16 06:00 08/01/16 06:00 08/01/16 06:00 08/01/16 06:00 Intake and Output: 08/01/16 08/01/16 06:59 18:59 Intake Total 240 Balance 240 - Medications Medications: Current Medications Aspirin (Aspirin Chewable) 81 mg PO DAILY [facility] Last Admin: 08/01/16 09:11 Dose: 81 mg Calcium Carbonate (Tums) 500 mg PO BID [facility] Last Admin: 08/01/16 09:13 Dose: 500 mg Diphenhydramine HCl (Benadryl) 25 mg PO Q6 PRN PRN Reason: Extra Pyramidal Symptoms Ferrous Sulfate (Feosol) 325 mg PO DAILY [facility] Last Admin: 08/01/16 09:10 Dose: 325 mg Guaifenesin/Dextromethorphan (Robitussin Dm) 10 ml PO TID [facility] Last Admin: 08/01/16 09:13 Dose: 10 ml Haloperidol (Haldol) 2 mg PO Q8 PRN PRN Reason: Moderate Agitation Last Admin: 07/26/16 10:09 Dose: 2 mg Insulin Aspart (Novolog) 0 unit SC [facility] PRN Reason: Protocol Last Admin: 08/01/16 09:28 Dose: Not Given Insulin Glargine (Lantus) 10 unit SC [facility] Last Admin: 07/31/16 21:57 Dose: Not Given Levothyroxine Sodium (Synthroid) 37.5 mcg PO DAILY@0630 [facility] Last Admin: 08/01/16 06:00 Dose: Not Given Lorazepam (Ativan) 1 mg IVP Q4H PRN PRN Reason: Agitation Last Admin: 07/26/16 16:40 Dose: 1 mg Lorazepam (Ativan) 0.5 mg PO Q8 [facility] Last Admin: 08/01/16 05:59 Dose: Not Given Megestrol Acetate (Megace) 40 mg PO DAILY [facility] Last Admin: 08/01/16 09:12 Dose: 40 mg Metformin HCl (Glucophage) 1,000 mg PO BID [facility] Last Admin: 08/01/16 09:10 Dose: 1,000 mg Mirtazapine (Remeron) 7.5 mg PO [facility] Last Admin: 07/31/16 23:35 Dose: Not Given Pantoprazole Sodium (Protonix Ec Tab) 40 mg PO DAILY [facility] Last Admin: 08/01/16 09:11 Dose: 40 mg Quetiapine Fumarate (Seroquel) 25 mg PO DAILY [facility] Last Admin: 07/31/16 09:30 Dose: Not Given Quetiapine Fumarate (Seroquel) 50 mg PO HS [facility] Last Admin: 07/30/16 21:18 Dose: 50 mg Rosuvastatin Calcium (Crestor) 5 mg PO HS [facility] Last Admin: 07/31/16 23:34 Dose: Not Given Fluticasone/Salmeterol (Advair Diskus 250/50) 1 puff INH RQ12 [facility] Last Admin: 07/31/16 21:15 Dose: Not Given Tamsulosin HCl (Flomax) 0.4 mg PO DAILY [facility] Last Admin: 08/01/16 09:11 Dose: 0.4 mg Tiotropium [place] (Spiriva) 18 mcg INH RQ24 [facility] Last Admin: 07/31/16 08:47 Dose: Not Given Tramadol HCl (Ultram) 50 mg PO Q12 PRN PRN Reason: Pain, moderate (4-7) - Labs Labs: 07/31/16 11:04 07/31/16 11:04 - Constitutional Appears: Well - Head Exam Head Exam: ATRAUMATIC, NORMAL INSPECTION, NORMOCEPHALIC - Eye Exam Eye Exam: EOMI, Normal appearance, PERRL Pupil Exam: NORMAL ACCOMODATION, PERRL - ENT Exam ENT Exam: Mucous Membranes Moist, Normal Exam - Neck Exam Neck Exam: Full ROM, Normal Inspection. absent: Lymphadenopathy - Respiratory Exam Respiratory Exam: Decreased Breath Sounds - Cardiovascular Exam Cardiovascular Exam: REGULAR RHYTHM, +S1, +S2 - GI/Abdominal Exam GI & Abdominal Exam: Soft, Diminished Bowel Sounds - Rectal Exam Rectal Exam: Deferred Assessment and Plan (1) Abnormal CXR (chest x-ray) Status: Acute (2) COPD (chronic obstructive pulmonary disease) Status: Acute (3) COPD exacerbation Status: Acute (4) Cardiac disease Status: Acute (5) Compression fracture of L2 Status: Acute (6) Depression Status: Acute (7) Diabetes Status: Acute - Assessment and Plan (Free Text) Plan: pt clinically improving labs revfiuewed jovi same consults accuchecks insulin advair duoneb seroquel
[2016-08-01] MEDS: Fluticasone-Salmeterol 250-50mcg Diskus INH SCH ×2 (13:20→19:29)
[2016-08-01] MEDS: (Lantus) Insulin Glargine, Recombinant SC SCH (21:32)
[2016-08-02] MEDS: Levothyroxine 25 MCG TAB PO SCH (06:05)
[2016-08-02] MEDS: (Novolog) Insulin Aspart, Recombinant 100 u/ml 10 ml vial SC SCH ×4 (08:07→22:07)
[2016-08-02] MEDS: Fluticasone-Salmeterol 250-50mcg Diskus INH SCH (08:21)
[2016-08-02] MEDS: Tiotropium 18 mcg Cap For Inhalation INH SCH (08:21)
[2016-08-02] MEDS: Pantoprazole 40 mg EC Tab PO SCH (10:12)
[2016-08-02] MEDS: guaiFENesin DM 200 mg-20 mg/10 ml UD PO SCH ×3 (10:12→17:38)
[2016-08-02] MEDS: Calcium Carbonate 500 mg Chewable Antacid Tab PO SCH ×2 (10:12→17:37)
[2016-08-02] MEDS: (Lantus) Insulin Glargine, Recombinant SC SCH (22:07)
[2016-08-03] MEDS: Levothyroxine 25 MCG TAB PO SCH (05:38)
[2016-08-03] MEDS: (Novolog) Insulin Aspart, Recombinant 100 u/ml 10 ml vial SC SCH ×4 (07:32→21:52)
[2016-08-03] MEDS: Fluticasone-Salmeterol 250-50mcg Diskus INH SCH ×2 (08:29→19:00)
[2016-08-03] MEDS: Tiotropium 18 mcg Cap For Inhalation INH SCH (08:30)
[2016-08-03] MEDS: Pantoprazole 40 mg EC Tab PO SCH (09:58)
[2016-08-03] MEDS: guaiFENesin DM 200 mg-20 mg/10 ml UD PO SCH ×3 (10:01→17:48)
[2016-08-03] MEDS: Calcium Carbonate 500 mg Chewable Antacid Tab PO SCH ×2 (10:02→17:49)
--- NOTE | 2016-08-03 12:08 | CP.PCM.PN ---
Subjective - Date & Time of Evaluation Date of Evaluation: 08/03/16 Time of Evaluation: 08:05 - Subjective Subjective: PGY2 Medicine Note - Dr. Loren Solis's service: Patient seen and examined at bedside. Patient resting comfortably. No overnight events per nursing. Possible placement at [facility], however patient is refusing to go. Objective - Vital Signs/Intake and Output Vital Signs (last 24 hours): Temp Pulse Resp BP Pulse Ox 98.1 F 75 20 114/66 95 08/03/16 08:00 08/03/16 08:00 08/03/16 08:00 08/03/16 08:00 08/03/16 08:00 Intake and Output: 08/03/16 08/03/16 06:59 18:59 Intake Total 200 Balance 200 - Medications Medications: Current Medications Aspirin (Aspirin Chewable) 81 mg PO DAILY [facility] Last Admin: 08/03/16 09:58 Dose: 81 mg Calcium Carbonate (Tums) 500 mg PO BID [facility] Last Admin: 08/03/16 10:02 Dose: 500 mg Diphenhydramine HCl (Benadryl) 25 mg PO Q6 PRN PRN Reason: Extra Pyramidal Symptoms Ferrous Sulfate (Feosol) 325 mg PO DAILY [facility] Last Admin: 08/03/16 09:58 Dose: 325 mg Guaifenesin/Dextromethorphan (Robitussin Dm) 10 ml PO TID [facility] Last Admin: 08/03/16 10:01 Dose: 10 ml Haloperidol (Haldol) 2 mg PO Q8 PRN PRN Reason: Moderate Agitation Last Admin: 08/01/16 19:17 Dose: 2 mg Insulin Aspart (Novolog) 0 unit SC ACHS [facility] PRN Reason: Protocol Last Admin: 08/03/16 07:32 Dose: Not Given Insulin Glargine (Lantus) 10 unit SC HS [facility] Last Admin: 08/02/16 22:07 Dose: Not Given Levothyroxine Sodium (Synthroid) 37.5 mcg PO DAILY@0630 [facility] Last Admin: 08/03/16 05:38 Dose: 37.5 mcg Lorazepam (Ativan) 1 mg IVP Q4H PRN PRN Reason: Agitation Last Admin: 07/26/16 16:40 Dose: 1 mg Lorazepam (Ativan) 0.5 mg PO Q8 [facility] Last Admin: 08/03/16 05:38 Dose: 0.5 mg Megestrol Acetate (Megace) 40 mg PO DAILY [facility] Last Admin: 08/03/16 10:01 Dose: 40 mg Metformin HCl (Glucophage) 1,000 mg PO BID [facility] Last Admin: 08/03/16 09:58 Dose: 1,000 mg Mirtazapine (Remeron) 7.5 mg PO [facility] Last Admin: 08/02/16 21:14 Dose: 7.5 mg Pantoprazole Sodium (Protonix Ec Tab) 40 mg PO DAILY [facility] Last Admin: 08/03/16 09:58 Dose: 40 mg Quetiapine Fumarate (Seroquel) 25 mg PO DAILY [facility] Last Admin: 08/03/16 10:02 Dose: 25 mg Quetiapine Fumarate (Seroquel) 50 mg PO HS [facility] Last Admin: 08/02/16 21:17 Dose: 50 mg Rosuvastatin Calcium (Crestor) 5 mg PO HS [facility] Last Admin: 08/02/16 21:13 Dose: 5 mg Fluticasone/Salmeterol (Advair Diskus 250/50) 1 puff INH RQ12 [facility] Last Admin: 08/03/16 08:29 Dose: 1 puff Tamsulosin HCl (Flomax) 0.4 mg PO DAILY [facility] Last Admin: 08/03/16 10:28 Dose: 0.4 mg Tiotropium [place] (Spiriva) 18 mcg INH RQ24 [facility] Last Admin: 08/03/16 08:30 Dose: Not Given Tramadol HCl (Ultram) 50 mg PO Q12 PRN PRN Reason: Pain, moderate (4-7) Last Admin: 08/01/16 19:17 Dose: 50 mg - Labs Labs: 07/31/16 11:04 07/31/16 11:04 - Additional Findings Additional findings: - Constitutional Appears: Non-toxic, No Acute Distress - Head Exam Head Exam: NORMAL INSPECTION - Eye Exam Eye Exam: EOMI - ENT Exam ENT Exam: Mucous Membranes Moist - Respiratory Exam Respiratory Exam: Clear to Ausculation Bilateral, NORMAL BREATHING PATTERN. absent: Rales, Rhonchi, Wheezes - Cardiovascular Exam Cardiovascular Exam: REGULAR RHYTHM, +S1, +S2. absent: Gallop, Rubs, Murmur - GI/Abdominal Exam GI & Abdominal Exam: Soft, Normal Bowel Sounds. absent: Tenderness - Extremities Exam Extremities Exam: Normal Capillary Refill. absent: Pedal Edema - Skin Skin Exam: Normal Color, Warm, Intact Assessment and Plan - Assessment and Plan (Free Text) Assessment: Note: Patient is refusing a majority of his medications on 08/03. Chest Pain - Resolved JAREK negative EKG with LBBB as prior EKGs have also shown Cardio consult - Dr. Marinelli - help appreciated ECHO - left ventricular is normal size. there is mild to moderate concentric left ventricular hypertrophy. the systolic function is midly to moderately impaired. septal hypokinesis. mild to moderate aortic regurgitation. mild pulmonary hypertension. (please see full report) Nodular opacity in chest Pulm consult - Dr. Hayden - help appreciated Chest CT - extensive bilateral fine nodular interstitial infiltrate both lower lobes. dense pleural based consolidation right lower lobe. subpleural emphysema. mild centrilobular pulmonary emphysema. left upper lobe nodules. 7mm and 9mm. reccomend f/u noncontrast chest CT in 3 months. Multiple left upper lobe nodular calcifications, likely granulomatous. probable small airways disease posterior right upper lobe. findings are nonspecific and may reflect infection or inflammatory disease. Patient needs to f/u outpatient per Dr. Hayden COPD Pulm consult - Dr. Hayden - help appreciated Advair and Spiriva Psychosis 08/03: All meds per Psychiatry Psych consult - Dr. Galicia - f/u recs Continue Ativan 1mg IVP Q4H PRN agiation Depression 08/03: All meds per Psychiatry 07/30: improving 07/24: Suicidal ideations Psych reconsulted - Dr. Frida Michael f/u recs 07/23: Pending placement 07/22: Patient is pending placement. 07/21 continue current management, add megace for appetite stimulant. Psych Dr. Bajwa consulted, help appreciated. Continue Remeron and Seroquel. Ativan 1mg IVP q4H PRN for agitation. DM RISS, accuchecks. Lantus 10U SC HS, Metformin Hypothyroid Continue synthroid. COPD Duoneb q6. Spiriva. Hx of cardiac disease Continue Eliquis, ASA, Crestor. Prophylactic measure eliquis, Protonix. Social work referral. All Management per Dr. Solis
--- NOTE | 2016-08-03 15:55 | CP.PCM.PN ---
Subjective - Date & Time of Evaluation Date of Evaluation: 08/03/16 Time of Evaluation: 07:20 - Subjective Subjective: clinically same Objective - Vital Signs/Intake and Output Vital Signs (last 24 hours): Temp Pulse Resp BP Pulse Ox 98.1 F 75 20 114/66 95 08/03/16 08:00 08/03/16 08:00 08/03/16 08:00 08/03/16 08:00 08/03/16 08:00 Intake and Output: 08/03/16 08/03/16 06:59 18:59 Intake Total 200 500 Balance 200 500 - Medications Medications: Current Medications Aspirin (Aspirin Chewable) 81 mg PO DAILY [facility] Last Admin: 08/03/16 09:58 Dose: 81 mg Calcium Carbonate (Tums) 500 mg PO BID [facility] Last Admin: 08/03/16 10:02 Dose: 500 mg Diphenhydramine HCl (Benadryl) 25 mg PO Q6 PRN PRN Reason: Extra Pyramidal Symptoms Ferrous Sulfate (Feosol) 325 mg PO DAILY [facility] Last Admin: 08/03/16 09:58 Dose: 325 mg Guaifenesin/Dextromethorphan (Robitussin Dm) 10 ml PO TID [facility] Last Admin: 08/03/16 14:07 Dose: Not Given Haloperidol (Haldol) 2 mg PO Q8 PRN PRN Reason: Moderate Agitation Last Admin: 08/01/16 19:17 Dose: 2 mg Insulin Aspart (Novolog) 0 unit SC [facility] PRN Reason: Protocol Last Admin: 08/03/16 12:33 Dose: 1 unit Insulin Glargine (Lantus) 10 unit SC [facility] Last Admin: 08/02/16 22:07 Dose: Not Given Levothyroxine Sodium (Synthroid) 37.5 mcg PO DAILY@0630 [facility] Last Admin: 08/03/16 05:38 Dose: 37.5 mcg Lorazepam (Ativan) 1 mg IVP Q4H PRN PRN Reason: Agitation Last Admin: 07/26/16 16:40 Dose: 1 mg Lorazepam (Ativan) 0.5 mg PO Q8 [facility] Last Admin: 08/03/16 14:07 Dose: Not Given Megestrol Acetate (Megace) 40 mg PO DAILY [facility] Last Admin: 08/03/16 10:01 Dose: 40 mg Metformin HCl (Glucophage) 1,000 mg PO BID [facility] Last Admin: 08/03/16 09:58 Dose: 1,000 mg Mirtazapine (Remeron) 7.5 mg PO [facility] Last Admin: 08/02/16 21:14 Dose: 7.5 mg Pantoprazole Sodium (Protonix Ec Tab) 40 mg PO DAILY [facility] Last Admin: 08/03/16 09:58 Dose: 40 mg Quetiapine Fumarate (Seroquel) 25 mg PO DAILY [facility] Last Admin: 08/03/16 10:02 Dose: 25 mg Quetiapine Fumarate (Seroquel) 50 mg PO HS [facility] Last Admin: 08/02/16 21:17 Dose: 50 mg Rosuvastatin Calcium (Crestor) 5 mg PO [facility] Last Admin: 08/02/16 21:13 Dose: 5 mg Fluticasone/Salmeterol (Advair Diskus 250/50) 1 puff INH RQ12 [facility] Last Admin: 08/03/16 08:29 Dose: 1 puff Tamsulosin HCl (Flomax) 0.4 mg PO DAILY [facility] Last Admin: 08/03/16 10:28 Dose: 0.4 mg Tiotropium [place] (Spiriva) 18 mcg INH RQ24 [facility] Last Admin: 08/03/16 08:30 Dose: Not Given Tramadol HCl (Ultram) 50 mg PO Q12 PRN PRN Reason: Pain, moderate (4-7) Last Admin: 08/01/16 19:17 Dose: 50 mg - Labs Labs: 07/31/16 11:04 07/31/16 11:04 - Constitutional Appears: Well - Head Exam Head Exam: ATRAUMATIC, NORMAL INSPECTION, NORMOCEPHALIC - Eye Exam Eye Exam: EOMI, Normal appearance, PERRL Pupil Exam: NORMAL ACCOMODATION, PERRL - ENT Exam ENT Exam: Mucous Membranes Moist, Normal Exam - Neck Exam Neck Exam: Full ROM, Normal Inspection. absent: Lymphadenopathy - Respiratory Exam Respiratory Exam: Decreased Breath Sounds - Cardiovascular Exam Cardiovascular Exam: REGULAR RHYTHM, +S1, +S2 - GI/Abdominal Exam GI & Abdominal Exam: Soft, Diminished Bowel Sounds - Rectal Exam Rectal Exam: Deferred Assessment and Plan (1) Abnormal CXR (chest x-ray) Status: Acute (2) COPD (chronic obstructive pulmonary disease) Status: Acute (3) COPD exacerbation Status: Acute (4) Cardiac disease Status: Acute (5) Compression fracture of L2 Status: Acute (6) Depression Status: Acute (7) Diabetes Status: Acute - Assessment and Plan (Free Text) Plan: refusing to got to [facility] as ordered psych Dr. Frida link on board lorelei zambranoivan
[2016-08-03 17:25] LABS: CHLORIDE 103 mmol/L (98-107)
[2016-08-03 17:26] LABS: POTASSIUM 3.9 mmol/L (3.6-5.2); SODIUM 137 mmol/L (132-148)
[2016-08-03 17:28] LABS: ALB/GLOB RATIO 0.9 (1.0-2.1); AST/SGOT 16 U/L (17-59); BILIRUBIN,TOTAL 0.3 mg/dL (0.2-1.3); CARBON DIOXIDE 24 mmol/L (22-30); GFR AFRICAN-AMERICAN > 60; TOTAL PROTEIN 6.6 g/dL (6.3-8.3)
[2016-08-03 17:29] LABS: ALKALINE PHOSPHATASE 47 U/L (38-126); ALT/SGPT 19 U/L (21-72); BLOOD UREA NITROGEN 26 mg/dL (9-20); CALCIUM 8.8 mg/dl (8.6-10.4); GLUCOSE,RANDOM 93 mg/dL (75-110); MAGNESIUM 1.6 mg/dL (1.6-2.3)
[2016-08-03 17:40] LABS: BASO # 0.1 K/uL (0.0-0.2); BASO % 1.3 % (0.0-2.0); EOS # 0.1 K/uL (0.0-0.7); HEMATOCRIT 32.6 % (35.0-51.0); LYMPH # 2.8 K/uL (1.0-4.3); LYMPH % 31.5 % (20.0-40.0); MEAN CELL VOLUME 85.2 fL (80.0-94.0); MEAN CORPUSCULAR HEMOGLOBIN 27.4 pg (27.0-31.0); MEAN CORPUSCULAR HGB CONC 32.1 g/dL (33.0-37.0); MEAN PLATELET VOLUME 8.4 fL (7.2-11.7); MONO % 10.7 % (0.0-10.0); RED CELL DISTRIBUTION WIDTH 20.4 % (11.5-14.5)
[2016-08-03] MEDS: (Lantus) Insulin Glargine, Recombinant SC SCH (21:53)
[2016-08-04] MEDS: Levothyroxine 25 MCG TAB PO SCH (06:03)
[2016-08-04] MEDS: (Novolog) Insulin Aspart, Recombinant 100 u/ml 10 ml vial SC SCH ×4 (07:36→21:35)
[2016-08-04] MEDS: Tiotropium 18 mcg Cap For Inhalation INH SCH (09:50)
[2016-08-04] MEDS: Fluticasone-Salmeterol 250-50mcg Diskus INH SCH ×2 (09:50→19:49)
[2016-08-04] MEDS: guaiFENesin DM 200 mg-20 mg/10 ml UD PO SCH ×3 (09:59→17:44)
[2016-08-04] MEDS: Calcium Carbonate 500 mg Chewable Antacid Tab PO SCH ×3 (10:00→17:45)
[2016-08-04] MEDS: Pantoprazole 40 mg EC Tab PO SCH ×2 (10:00→10:35)
[2016-08-04 11:06] LABS: BASO # 0.1 K/uL (0.0-0.2); BASO % 1.1 % (0.0-2.0); EOS % 0.4 % (0.0-4.0); LYMPH # 2.1 K/uL (1.0-4.3); LYMPH % 28.4 % (20.0-40.0); MEAN CELL VOLUME 83.9 fL (80.0-94.0); MEAN CORPUSCULAR HEMOGLOBIN 27.5 pg (27.0-31.0); MEAN CORPUSCULAR HGB CONC 32.8 g/dL (33.0-37.0); MEAN PLATELET VOLUME 8.2 fL (7.2-11.7); MONO # 0.7 K/uL (0.0-0.8); MONO % 9.2 % (0.0-10.0); RED CELL DISTRIBUTION WIDTH 20.2 % (11.5-14.5); WHITE BLOOD COUNT 7.5 K/uL (4.8-10.8)
--- NOTE | 2016-08-04 11:23 | CP.PCM.PN ---
Subjective - Date & Time of Evaluation Date of Evaluation: 08/04/16 Time of Evaluation: 07:30 - Subjective Subjective: PGY2 Medicine Note - Dr. Loren Solis's service: Patient seen and examined at bedside. Patient was very combative this morning, threatening to stab 1:1 staff with a fork. He has not taken his PO medications for several days. He seemed very confused and wants to go home. No overnight events per nursing. Possible placement at [facility], however patient is refusing to go. Objective - Vital Signs/Intake and Output Vital Signs (last 24 hours): Temp Pulse Resp BP Pulse Ox 97.8 F 74 20 122/65 96 08/04/16 08:38 08/04/16 08:38 08/04/16 08:38 08/04/16 08:38 08/04/16 08:38 Intake and Output: 08/04/16 08/04/16 06:59 18:59 Intake Total 400 Balance 400 - Medications Medications: Current Medications Aspirin (Aspirin Chewable) 81 mg PO DAILY [facility] Last Admin: 08/04/16 10:34 Dose: Not Given Calcium Carbonate (Tums) 500 mg PO BID [facility] Last Admin: 08/04/16 10:35 Dose: Not Given Diphenhydramine HCl (Benadryl) 25 mg PO Q6 PRN PRN Reason: Extra Pyramidal Symptoms Ferrous Sulfate (Feosol) 325 mg PO DAILY [facility] Last Admin: 08/04/16 10:35 Dose: Not Given Guaifenesin/Dextromethorphan (Robitussin Dm) 10 ml PO TID [facility] Last Admin: 08/04/16 09:59 Dose: 10 ml Haloperidol (Haldol) 2 mg PO Q8 PRN PRN Reason: Moderate Agitation Last Admin: 08/01/16 19:17 Dose: 2 mg Insulin Aspart (Novolog) 0 unit SC ACHS [facility] PRN Reason: Protocol Last Admin: 08/04/16 07:36 Dose: Not Given Insulin Glargine (Lantus) 10 unit SC HS [facility] Last Admin: 08/03/16 21:53 Dose: Not Given Levothyroxine Sodium (Synthroid) 37.5 mcg PO DAILY@0630 [facility] Lorazepam (Ativan) 1 mg IVP Q4H PRN PRN Reason: Agitation Last Admin: 06/20/17 09:45 Dose: 1 mg Lorazepam (Ativan) 0.5 mg PO Q8 [facility] Last Admin: 08/04/16 06:03 Dose: Not Given Megestrol Acetate (Megace) 40 mg PO DAILY [facility] Last Admin: 08/04/16 10:35 Dose: Not Given Metformin HCl (Glucophage) 1,000 mg PO BID [facility] Last Admin: 08/04/16 10:35 Dose: Not Given Mirtazapine (Remeron) 7.5 mg PO HS [facility] Last Admin: 08/03/16 21:21 Dose: Not Given Pantoprazole Sodium (Protonix Ec Tab) 40 mg PO DAILY [facility] Last Admin: 08/04/16 10:35 Dose: Not Given Quetiapine Fumarate (Seroquel) 25 mg PO DAILY [facility] Last Admin: 08/04/16 10:01 Dose: Not Given Quetiapine Fumarate (Seroquel) 50 mg PO HS [facility] Last Admin: 08/03/16 21:21 Dose: Not Given Rosuvastatin Calcium (Crestor) 5 mg PO HS [facility] Last Admin: 08/03/16 21:20 Dose: Not Given Fluticasone/Salmeterol (Advair Diskus 250/50) 1 puff INH RQ12 [facility] Last Admin: 08/04/16 09:50 Dose: 1 puff Tamsulosin HCl (Flomax) 0.4 mg PO DAILY [facility] Last Admin: 08/04/16 10:35 Dose: Not Given Tiotropium [place] (Spiriva) 18 mcg INH RQ24 [facility] Last Admin: 08/04/16 09:50 Dose: 18 mcg Tramadol HCl (Ultram) 50 mg PO Q12 PRN PRN Reason: Pain, moderate (4-7) Last Admin: 08/01/16 19:17 Dose: 50 mg - Labs Labs: 08/04/16 10:57 08/03/16 17:12 - Additional Findings Additional findings: - Constitutional Appears: Non-toxic, No Acute Distress, Cachectic - Patient confused and very combative. - Head Exam Head Exam: NORMAL INSPECTION - Eye Exam Eye Exam: EOMI - ENT Exam ENT Exam: Mucous Membranes Moist - Respiratory Exam Respiratory Exam: Clear to Ausculation Bilateral, NORMAL BREATHING PATTERN. absent: Rales, Rhonchi, Wheezes - Cardiovascular Exam Cardiovascular Exam: REGULAR RHYTHM, +S1, +S2. absent: Gallop, Rubs, Murmur - GI/Abdominal Exam GI & Abdominal Exam: Soft, Normal Bowel Sounds. absent: Tenderness - Extremities Exam Extremities Exam: Normal Capillary Refill. absent: Pedal Edema - Skin Skin Exam: Normal Color, Warm, Intact Assessment and Plan - Assessment and Plan (Free Text) Assessment: Note: Patient is refusing a majority of his medications on 08/03. Psychosis 08/04: Re-consult psych for possible medication adjustments, as patient is refusing most PO medications including Haldol. 08/03: All meds per Psychiatry Psych consult - Dr. Galicia - f/u recs Continue Ativan 1mg IVP Q4H PRN agiation Depression 08/03: All meds per Psychiatry 07/30: improving 07/24: Suicidal ideations Psych reconsulted - Dr. Galicia - f/u recs 07/23: Pending placement 07/22: Patient is pending placement. 07/21 continue current management, add megace for appetite stimulant. Psych Dr. Bajwa consulted, help appreciated. Continue Remeron and Seroquel. Ativan 1mg IVP q4H PRN for agitation. Chest Pain - Resolved JAREK negative EKG with LBBB as prior EKGs have also shown Cardio consult - Dr. Marinelli - help appreciated ECHO - left ventricular is normal size. there is mild to moderate concentric left ventricular hypertrophy. the systolic function is midly to moderately impaired. septal hypokinesis. mild to moderate aortic regurgitation. mild pulmonary hypertension. (please see full report) Nodular opacity in chest Pulm consult - Dr. Hayden - help appreciated Chest CT - extensive bilateral fine nodular interstitial infiltrate both lower lobes. dense pleural based consolidation right lower lobe. subpleural emphysema. mild centrilobular pulmonary emphysema. left upper lobe nodules. 7mm and 9mm. reccomend f/u noncontrast chest CT in 3 months. Multiple left upper lobe nodular calcifications, likely granulomatous. probable small airways disease posterior right upper lobe. findings are nonspecific and may reflect infection or inflammatory disease. Patient needs to f/u outpatient per Dr. Hayden for nodular opacity in chest + COPD. COPD Pulm consult - Dr. Hayden - help appreciated Advair and Spiriva DM RISS, accuchecks. Lantus 10U SC HS, Metformin Hypothyroid Continue synthroid. COPD Duoneb q6. Spiriva. Hx of cardiac disease Continue Eliquis, ASA, Crestor. Prophylactic measure eliquis, Protonix. Social work referral. All Medical Management per Dr. Solis
[2016-08-04 11:29] LABS: CHLORIDE 104 mmol/L (98-107); POTASSIUM 3.7 mmol/L (3.6-5.2); SODIUM 136 mmol/L (132-148)
[2016-08-04 11:30] LABS: CARBON DIOXIDE 21 mmol/L (22-30); GLUCOSE,RANDOM 177 mg/dL (75-110); TOTAL PROTEIN 6.4 g/dL (6.3-8.3)
[2016-08-04 12:05] LABS: AST/SGOT 15 U/L (17-59); BILIRUBIN,TOTAL 0.8 mg/dL (0.2-1.3); GFR AFRICAN-AMERICAN > 60
[2016-08-04 12:06] LABS: ALKALINE PHOSPHATASE 44 U/L (38-126); ALT/SGPT 18 U/L (21-72); BLOOD UREA NITROGEN 31 mg/dL (9-20); CALCIUM 8.8 mg/dl (8.6-10.4); MAGNESIUM 1.7 mg/dL (1.6-2.3); PHOSPHOROUS 3.8 mg/dL (2.5-4.5)
--- NOTE | 2016-08-04 15:16 | CP.PCM.PN ---
Subjective - Date & Time of Evaluation Date of Evaluation: 08/04/16 Time of Evaluation: 07:20 - Subjective Subjective: clinically same Objective - Vital Signs/Intake and Output Vital Signs (last 24 hours): Temp Pulse Resp BP Pulse Ox 97.8 F 74 20 122/65 96 08/04/16 08:38 08/04/16 08:38 08/04/16 08:38 08/04/16 08:38 08/04/16 08:38 Intake and Output: 08/04/16 08/04/16 06:59 18:59 Intake Total 400 Balance 400 - Medications Medications: Current Medications Aspirin (Aspirin Chewable) 81 mg PO DAILY [facility] Last Admin: 08/04/16 10:34 Dose: Not Given Calcium Carbonate (Tums) 500 mg PO BID [facility] Last Admin: 08/04/16 10:35 Dose: Not Given Diphenhydramine HCl (Benadryl) 25 mg PO Q6 PRN PRN Reason: Extra Pyramidal Symptoms Ferrous Sulfate (Feosol) 325 mg PO DAILY [facility] Last Admin: 08/04/16 10:35 Dose: Not Given Guaifenesin/Dextromethorphan (Robitussin Dm) 10 ml PO TID [facility] Last Admin: 08/04/16 14:03 Dose: Not Given Haloperidol (Haldol) 2 mg PO Q8 PRN PRN Reason: Moderate Agitation Last Admin: 08/01/16 19:17 Dose: 2 mg Insulin Aspart (Novolog) 0 unit SC [facility] PRN Reason: Protocol Last Admin: 08/04/16 12:18 Dose: Not Given Insulin Glargine (Lantus) 10 unit SC [facility] Last Admin: 08/03/16 21:53 Dose: Not Given Levothyroxine Sodium (Synthroid) 37.5 mcg PO DAILY@0630 [facility] Lorazepam (Ativan) 1 mg IVP Q4H PRN PRN Reason: Agitation Last Admin: 08/04/16 09:45 Dose: 1 mg Lorazepam (Ativan) 0.5 mg PO Q8 [facility] Last Admin: 08/04/16 14:04 Dose: Not Given Megestrol Acetate (Megace) 40 mg PO DAILY [facility] Last Admin: 08/04/16 10:35 Dose: Not Given Metformin HCl (Glucophage) 1,000 mg PO BID [facility] Last Admin: 08/04/16 10:35 Dose: Not Given Mirtazapine (Remeron) 7.5 mg PO HS [facility] Last Admin: 08/03/16 21:21 Dose: Not Given Pantoprazole Sodium (Protonix Ec Tab) 40 mg PO DAILY [facility] Last Admin: 08/04/16 10:35 Dose: Not Given Quetiapine Fumarate (Seroquel) 25 mg PO DAILY [facility] Last Admin: 08/04/16 10:01 Dose: Not Given Quetiapine Fumarate (Seroquel) 50 mg PO HS [facility] Last Admin: 08/03/16 21:21 Dose: Not Given Rosuvastatin Calcium (Crestor) 5 mg PO HS [facility] Last Admin: 08/03/16 21:20 Dose: Not Given Fluticasone/Salmeterol (Advair Diskus 250/50) 1 puff INH RQ12 [facility] Last Admin: 08/04/16 09:50 Dose: 1 puff Tamsulosin HCl (Flomax) 0.4 mg PO DAILY [facility] Last Admin: 08/04/16 10:35 Dose: Not Given Tiotropium [place] (Spiriva) 18 mcg INH RQ24 [facility] Last Admin: 08/04/16 09:50 Dose: 18 mcg Tramadol HCl (Ultram) 50 mg PO Q12 PRN PRN Reason: Pain, moderate (4-7) Last Admin: 08/01/16 19:17 Dose: 50 mg - Labs Labs: 08/04/16 10:57 08/04/16 10:57 - Constitutional Appears: Well - Head Exam Head Exam: ATRAUMATIC, NORMAL INSPECTION, NORMOCEPHALIC - Eye Exam Eye Exam: EOMI, Normal appearance, PERRL Pupil Exam: NORMAL ACCOMODATION, PERRL - ENT Exam ENT Exam: Mucous Membranes Moist, Normal Exam - Neck Exam Neck Exam: Full ROM, Normal Inspection. absent: Lymphadenopathy - Respiratory Exam Respiratory Exam: Decreased Breath Sounds - Cardiovascular Exam Cardiovascular Exam: REGULAR RHYTHM, +S1, +S2 - GI/Abdominal Exam GI & Abdominal Exam: Soft, Diminished Bowel Sounds - Rectal Exam Rectal Exam: Deferred Assessment and Plan (1) Abnormal CXR (chest x-ray) Status: Acute (2) COPD (chronic obstructive pulmonary disease) Status: Acute (3) COPD exacerbation Status: Acute (4) Cardiac disease Status: Acute (5) Compression fracture of L2 Status: Acute (6) Depression Status: Acute (7) Diabetes Status: Acute - Assessment and Plan (Free Text) Plan: wants to go [facility] refusing meds confused combative today psych consult meds as ordered 1:1 observation accuchecks
[2016-08-04] MEDS: (Lantus) Insulin Glargine, Recombinant SC SCH (21:35)
[2016-08-05] MEDS: Levothyroxine 75 MCG TAB PO SCH (06:00)
[2016-08-05] MEDS: (Novolog) Insulin Aspart, Recombinant 100 u/ml 10 ml vial SC SCH ×4 (07:51→21:26)
--- NOTE | 2016-08-05 09:51 | CP.PCM.PN ---
Subjective - Date & Time of Evaluation Date of Evaluation: 08/05/16 Time of Evaluation: 07:10 - Subjective Subjective: PGY2 Medicine Note - Dr. Loren Solis's service: Patient seen and examined at bedside. Patient was more calm today after accepting to take Haldol PO after several days of refusal; he is however extremely disoriented. Patient expresses concern that he is in an " assassination camp" and we are agents attempting to kill him. No overnight events per nursing. Denies f/c, headache, blurry vision, chest pain, palpitations, SOB, abdominal pain, n/v, d/c, dysuria, urinary frequency, or any other acute complaints. Objective - Vital Signs/Intake and Output Vital Signs (last 24 hours): Temp Pulse Resp BP Pulse Ox 97.8 F 73 20 117/65 97 08/05/16 07:00 08/05/16 07:00 08/05/16 07:00 08/05/16 07:00 08/05/16 07:00 Intake and Output: 08/05/16 08/05/16 06:59 18:59 Intake Total 240 Balance 240 - Medications Medications: Current Medications Aspirin (Aspirin Chewable) 81 mg PO DAILY [facility] Last Admin: 08/04/16 10:34 Dose: Not Given Calcium Carbonate (Tums) 500 mg PO BID [facility] Last Admin: 08/04/16 17:45 Dose: Not Given Diphenhydramine HCl (Benadryl) 25 mg PO Q6 PRN PRN Reason: Extra Pyramidal Symptoms Ferrous Sulfate (Feosol) 325 mg PO DAILY [facility] Last Admin: 08/04/16 10:35 Dose: Not Given Guaifenesin/Dextromethorphan (Robitussin Dm) 10 ml PO TID [facility] Last Admin: 08/04/16 17:44 Dose: Not Given Haloperidol (Haldol) 2 mg PO Q8 PRN PRN Reason: Moderate Agitation Last Admin: 08/05/16 00:41 Dose: 2 mg Insulin Aspart (Novolog) 0 unit SC ACHS [facility] PRN Reason: Protocol Last Admin: 08/05/16 07:51 Dose: Not Given Insulin Glargine (Lantus) 10 unit SC HS [facility] Last Admin: 08/04/16 21:35 Dose: Not Given Levothyroxine Sodium (Synthroid) 37.5 mcg PO DAILY@0630 [facility] Last Admin: 08/05/16 06:00 Dose: 37.5 mcg Lorazepam (Ativan) 1 mg IVP Q4H PRN PRN Reason: Agitation Last Admin: 08/05/16 00:15 Dose: 1 mg Lorazepam (Ativan) 0.5 mg PO Q8 [facility] Last Admin: 08/05/16 06:16 Dose: 0.5 mg Megestrol Acetate (Megace) 40 mg PO DAILY [facility] Last Admin: 08/04/16 10:35 Dose: Not Given Metformin HCl (Glucophage) 1,000 mg PO BID [facility] Last Admin: 08/04/16 17:43 Dose: Not Given Mirtazapine (Remeron) 7.5 mg PO HS [facility] Last Admin: 08/05/16 00:40 Dose: 7.5 mg Pantoprazole Sodium (Protonix Ec Tab) 40 mg PO DAILY [facility] Last Admin: 08/04/16 10:35 Dose: Not Given Quetiapine Fumarate (Seroquel) 25 mg PO DAILY [facility] Last Admin: 08/04/16 10:01 Dose: Not Given Quetiapine Fumarate (Seroquel) 50 mg PO HS [facility] Last Admin: 08/05/16 00:40 Dose: 50 mg Rosuvastatin Calcium (Crestor) 5 mg PO HS [facility] Last Admin: 08/04/16 21:35 Dose: Not Given Fluticasone/Salmeterol (Advair Diskus 250/50) 1 puff INH RQ12 [facility] Last Admin: 08/04/16 19:49 Dose: Not Given Tamsulosin HCl (Flomax) 0.4 mg PO DAILY [facility] Last Admin: 08/04/16 10:35 Dose: Not Given Tiotropium [place] (Spiriva) 18 mcg INH RQ24 [facility] Last Admin: 08/04/16 09:50 Dose: 18 mcg Tramadol HCl (Ultram) 50 mg PO Q12 PRN PRN Reason: Pain, moderate (4-7) Last Admin: 08/01/16 19:17 Dose: 50 mg - Labs Labs: 08/04/16 10:57 08/04/16 10:57 - Additional Findings Additional findings: - Constitutional Appears: Non-toxic, No Acute Distress, Cachectic - Patient confused and very combative. - Head Exam Head Exam: NORMAL INSPECTION - Eye Exam Eye Exam: EOMI - ENT Exam ENT Exam: Mucous Membranes Moist - Respiratory Exam Respiratory Exam: Clear to Ausculation Bilateral, NORMAL BREATHING PATTERN. absent: Rales, Rhonchi, Wheezes - Cardiovascular Exam Cardiovascular Exam: REGULAR RHYTHM, +S1, +S2. absent: Gallop, Rubs, Murmur - GI/Abdominal Exam GI & Abdominal Exam: Soft, Normal Bowel Sounds. absent: Tenderness - Extremities Exam Extremities Exam: Normal Capillary Refill. absent: Pedal Edema -Emaciated - Skin Skin Exam: Normal Color, Warm, Intact Assessment and Plan - Assessment and Plan (Free Text) Assessment: Note: Patient is refusing a majority of his medications on 08/03. Psychosis 08/05: Patient seen by psychiatry, Dr. Bajwa, help appreciated. Haldol IV: Haldol 2mg IM Q6 PRN 08/04: Re-consult psych for possible medication adjustments, as patient is refusing most PO medications including Haldol. 08/03: All meds per Psychiatry Psych consult - Dr. Frida alvarado/u recs Continue Ativan 1mg IVP Q4H PRN agiation Haldol 2mg IM Q6 PRN, agitation Haldol 2mg PO Q6H PRN, moderate agitation Depression 08/05: Patient seen by psychiatry, Dr. Bajwa, help appreciated. 08/03: All meds per Psychiatry 07/30: improving 07/24: Suicidal ideations Psych reconsulted - Dr. Frida alvarado/u recs 07/23: Pending placement 07/22: Patient is pending placement. 07/21 continue current management, add megace for appetite stimulant. Psych Dr. Bajwa consulted, help appreciated. Continue Remeron and Seroquel. Ativan 1mg IVP q4H PRN for agitation. Chest Pain - Resolved JAREK negative EKG with LBBB as prior EKGs have also shown Cardio consult - Dr. Marinelli - help appreciated ECHO - left ventricular is normal size. there is mild to moderate concentric left ventricular hypertrophy. the systolic function is midly to moderately impaired. septal hypokinesis. mild to moderate aortic regurgitation. mild pulmonary hypertension. (please see full report) Nodular opacity in chest Pulm consult - Dr. Hayden - help appreciated Chest CT - extensive bilateral fine nodular interstitial infiltrate both lower lobes. dense pleural based consolidation right lower lobe. subpleural emphysema. mild centrilobular pulmonary emphysema. left upper lobe nodules. 7mm and 9mm. reccomend f/u noncontrast chest CT in 3 months. Multiple left upper lobe nodular calcifications, likely granulomatous. probable small airways disease posterior right upper lobe. findings are nonspecific and may reflect infection or inflammatory disease. Patient needs to f/u outpatient per Dr. Hayden for nodular opacity in chest + COPD. COPD Pulm consult - Dr. Hayden - help appreciated Advair and Spiriva DM RISS, accuchecks. Lantus 10U SC HS, Metformin Hypothyroid Continue synthroid. COPD Duoneb q6. Spiriva. Hx of cardiac disease Continue Eliquis, ASA, Crestor. Prophylactic measure eliquis, Protonix. Social work referral. All Medical Management per Dr. Solis
[2016-08-05] MEDS: Calcium Carbonate 500 mg Chewable Antacid Tab PO SCH ×2 (11:20→18:29)
[2016-08-05] MEDS: Pantoprazole 40 mg EC Tab PO SCH (11:20)
[2016-08-05] MEDS: guaiFENesin DM 200 mg-20 mg/10 ml UD PO SCH ×3 (11:20→18:27)
[2016-08-05] MEDS: Tiotropium 18 mcg Cap For Inhalation INH SCH (11:40)
[2016-08-05] MEDS: Fluticasone-Salmeterol 250-50mcg Diskus INH SCH ×2 (11:40→20:36)
--- NOTE | 2016-08-05 16:34 | PCM.PYCHPN ---
Psychiatric Progress Note - Psychiatric Progress Note Patient seen today, length of contact: 16 min Patient Chief Complaint: I am feeling leola Problems Identified/Issues Discussed: Pt was seen and evaluated and chart reviewed and discussed with staff. As pert the staff pt remained very irritable and agitated yesterday and started attacking staff. He was verbally and physically aggressive. He was given Haldol to calm him down. Pt appeared forgetful and delusional. However he denies any suicidal ideation or any homicidal ideation. He is taking medications off and on but denies any side effects. Supportive therapy was given. Medication Change: Yes (increase seroquel) Medical Record Reviewed: Yes Mental Status Examination - Cognitive Function Orientation: Person, Place, Situation, Time Memory: Intact Attention: Poor Concentration: WNL Association: Loose Fund of Knowledge: Poor - Mood Mood: Anxious - Affect Affect: Constricted - Speech Speech: Soft - Formal Thought Process Formal Thought Process: Paranoia - Suicidal Ideation Suicidal Ideation: No - Homicidal Ideation Homicidal Ideation: No Goal/Treatment Plan - Goal/Treatment Plan Need for Continued Stay: Discharge may exacerbated symptoms, Severe functional impairment Progress Toward Problem(s) and Goals/Treatment Plan: 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 CBT [facility] Seroquel 50 mg PO BID Remeron 7.5 mg PO QHS Haldol 2 mg I/M prn Haldol 2 mg PO PRN - Smoking Cessation Smoking Cessation Initiated: No
--- NOTE | 2016-08-05 16:45 | CP.PCM.PN ---
Subjective - Date & Time of Evaluation Date of Evaluation: 08/05/16 Time of Evaluation: 07:20 - Subjective Subjective: clinically same Objective - Vital Signs/Intake and Output Vital Signs (last 24 hours): Temp Pulse Resp BP Pulse Ox 97.5 F L 73 20 117/65 95 08/05/16 15:00 08/05/16 15:58 08/05/16 15:00 08/05/16 15:58 08/05/16 15:58 Intake and Output: 08/05/16 08/05/16 06:59 18:59 Intake Total 240 Balance 240 - Medications Medications: Current Medications Aspirin (Aspirin Chewable) 81 mg PO DAILY [facility] Last Admin: 08/05/16 11:19 Dose: Not Given Calcium Carbonate (Tums) 500 mg PO BID [facility] Last Admin: 08/05/16 11:20 Dose: Not Given Diphenhydramine HCl (Benadryl) 25 mg PO Q6 PRN PRN Reason: Extra Pyramidal Symptoms Ferrous Sulfate (Feosol) 325 mg PO DAILY [facility] Last Admin: 08/05/16 11:19 Dose: Not Given Guaifenesin/Dextromethorphan (Robitussin Dm) 10 ml PO TID [facility] Last Admin: 08/05/16 14:09 Dose: Not Given Haloperidol (Haldol) 2 mg PO Q8 PRN PRN Reason: Moderate Agitation Last Admin: 08/05/16 00:41 Dose: 2 mg Haloperidol Lactate (Haldol) 2 mg IM Q6 PRN PRN Reason: Agitation Insulin Aspart (Novolog) 0 unit SC [facility] PRN Reason: Protocol Last Admin: 08/05/16 11:36 Dose: Not Given Insulin Glargine (Lantus) 10 unit SC [facility] Last Admin: 08/04/16 21:35 Dose: Not Given Levothyroxine Sodium (Synthroid) 37.5 mcg PO DAILY@0630 [facility] Last Admin: 08/05/16 06:00 Dose: 37.5 mcg Lorazepam (Ativan) 0.5 mg PO Q8 [facility] Last Admin: 08/05/16 14:09 Dose: Not Given Lorazepam (Ativan) 1 mg IM Q6H PRN PRN Reason: Agitation Megestrol Acetate (Megace) 40 mg PO DAILY [facility] Last Admin: 08/05/16 11:20 Dose: Not Given Metformin HCl (Glucophage) 1,000 mg PO BID [facility] Last Admin: 08/05/16 11:20 Dose: Not Given Mirtazapine (Remeron) 7.5 mg PO [facility] Last Admin: 08/05/16 00:40 Dose: 7.5 mg Pantoprazole Sodium (Protonix Ec Tab) 40 mg PO DAILY [facility] Last Admin: 08/05/16 11:20 Dose: Not Given Quetiapine Fumarate (Seroquel) 25 mg PO DAILY [facility] Last Admin: 08/05/16 11:20 Dose: Not Given Quetiapine Fumarate (Seroquel) 50 mg PO [facility] Last Admin: 08/05/16 00:40 Dose: 50 mg Rosuvastatin Calcium (Crestor) 5 mg PO [facility] Last Admin: 08/04/16 21:35 Dose: Not Given Fluticasone/Salmeterol (Advair Diskus 250/50) 1 puff INH RQ12 [facility] Last Admin: 08/05/16 11:40 Dose: Not Given Tamsulosin HCl (Flomax) 0.4 mg PO DAILY [facility] Last Admin: 08/05/16 11:19 Dose: Not Given Tiotropium [place] (Spiriva) 18 mcg INH RQ24 [facility] Last Admin: 08/05/16 11:40 Dose: Not Given Tramadol HCl (Ultram) 50 mg PO Q12 PRN PRN Reason: Pain, moderate (4-7) Last Admin: 08/01/16 19:17 Dose: 50 mg - Labs Labs: 08/04/16 10:57 08/04/16 10:57 - Constitutional Appears: Well - Head Exam Head Exam: ATRAUMATIC, NORMAL INSPECTION, NORMOCEPHALIC - Eye Exam Eye Exam: EOMI, Normal appearance, PERRL Pupil Exam: NORMAL ACCOMODATION, PERRL - ENT Exam ENT Exam: Mucous Membranes Moist, Normal Exam - Neck Exam Neck Exam: Full ROM, Normal Inspection. absent: Lymphadenopathy - Respiratory Exam Respiratory Exam: Decreased Breath Sounds - Cardiovascular Exam Cardiovascular Exam: REGULAR RHYTHM, +S1, +S2 - GI/Abdominal Exam GI & Abdominal Exam: Soft, Diminished Bowel Sounds - Rectal Exam Rectal Exam: Deferred Assessment and Plan (1) Abnormal CXR (chest x-ray) Status: Acute (2) COPD (chronic obstructive pulmonary disease) Status: Acute (3) COPD exacerbation Status: Acute (4) Cardiac disease Status: Acute (5) Compression fracture of L2 Status: Acute (6) Depression Status: Acute (7) Diabetes Status: Acute - Assessment and Plan (Free Text) Plan: pt disoriented calm spoken with adoption social worker Dr Garett Epstein
[2016-08-05] MEDS: (Lantus) Insulin Glargine, Recombinant SC SCH (21:14)
[2016-08-06] MEDS: Levothyroxine 75 MCG TAB PO SCH (06:20)
--- NOTE | 2016-08-06 06:27 | CP.PCM.PN ---
Subjective - Date & Time of Evaluation Date of Evaluation: 08/06/16 Time of Evaluation: 07:00 - Subjective Subjective: Medicine Note- Dr. Solis's service Patient was seen and examined at bedside. Patient was resting in bed, answering questions appropriately. Complained of no acute complaints. No events overnight, per hospital staff Objective - Vital Signs/Intake and Output Vital Signs (last 24 hours): Temp Pulse Resp BP Pulse Ox 97.1 F L 70 20 125/61 97 08/05/16 23:56 08/05/16 23:56 08/05/16 23:56 08/05/16 23:56 08/05/16 23:56 Intake and Output: 08/05/16 08/06/16 18:59 06:59 Intake Total 300 Balance 300 - Medications Medications: Current Medications Aspirin (Aspirin Chewable) 81 mg PO DAILY [facility] Last Admin: 08/05/16 11:19 Dose: Not Given Calcium Carbonate (Tums) 500 mg PO BID [facility] Last Admin: 08/05/16 18:29 Dose: Not Given Diphenhydramine HCl (Benadryl) 25 mg PO Q6 PRN PRN Reason: Extra Pyramidal Symptoms Ferrous Sulfate (Feosol) 325 mg PO DAILY [facility] Last Admin: 08/05/16 11:19 Dose: Not Given Guaifenesin/Dextromethorphan (Robitussin Dm) 10 ml PO TID [facility] Last Admin: 08/05/16 18:27 Dose: Not Given Haloperidol (Haldol) 2 mg PO Q6 PRN PRN Reason: Moderate Agitation Haloperidol Lactate (Haldol) 2 mg IM Q6 PRN PRN Reason: Agitation Last Admin: 08/06/16 03:04 Dose: 2 mg Insulin Aspart (Novolog) 0 unit SC ACHS [facility] PRN Reason: Protocol Last Admin: 08/05/16 21:26 Dose: Not Given Insulin Glargine (Lantus) 10 unit SC HS [facility] Last Admin: 08/05/16 21:14 Dose: Not Given Levothyroxine Sodium (Synthroid) 37.5 mcg PO DAILY@0630 [facility] Last Admin: 08/06/16 06:20 Dose: 37.5 mcg Lorazepam (Ativan) 0.5 mg PO Q8 [facility] Last Admin: 08/06/16 06:19 Dose: 0.5 mg Lorazepam (Ativan) 1 mg IM Q6H PRN PRN Reason: Agitation Last Admin: 08/05/16 20:53 Dose: 1 mg Megestrol Acetate (Megace) 40 mg PO DAILY [facility] Last Admin: 08/05/16 11:20 Dose: Not Given Metformin HCl (Glucophage) 1,000 mg PO BID [facility] Last Admin: 08/05/16 18:28 Dose: Not Given Mirtazapine (Remeron) 7.5 mg PO HS [facility] Last Admin: 08/05/16 21:15 Dose: Not Given Pantoprazole Sodium (Protonix Ec Tab) 40 mg PO DAILY [facility] Last Admin: 08/05/16 11:20 Dose: Not Given Quetiapine Fumarate (Seroquel) 50 mg PO HS [facility] Last Admin: 08/05/16 21:15 Dose: Not Given Quetiapine Fumarate (Seroquel) 50 mg PO DAILY [facility] Rosuvastatin Calcium (Crestor) 5 mg PO HS [facility] Last Admin: 08/05/16 21:14 Dose: Not Given Fluticasone/Salmeterol (Advair Diskus 250/50) 1 puff INH RQ12 [facility] Last Admin: 08/05/16 20:36 Dose: Not Given Tamsulosin HCl (Flomax) 0.4 mg PO DAILY [facility] Last Admin: 08/05/16 11:19 Dose: Not Given Tiotropium [place] (Spiriva) 18 mcg INH RQ24 [facility] Last Admin: 08/05/16 11:40 Dose: Not Given Tramadol HCl (Ultram) 50 mg PO Q12 PRN PRN Reason: Pain, moderate (4-7) Last Admin: 08/01/16 19:17 Dose: 50 mg - Labs Labs: 08/04/16 10:57 08/04/16 10:57 - Constitutional Appears: Non-toxic, Confused - Head Exam Head Exam: ATRAUMATIC, NORMAL INSPECTION, NORMOCEPHALIC - Eye Exam Pupil Exam: NORMAL ACCOMODATION, PERRL - ENT Exam ENT Exam: Mucous Membranes Moist - Respiratory Exam Respiratory Exam: Clear to Ausculation Bilateral, NORMAL BREATHING PATTERN. absent: Prolonged Expiratory Phase, Rales, Rhonchi, Wheezes - Cardiovascular Exam Cardiovascular Exam: REGULAR RHYTHM, +S1, +S2 - GI/Abdominal Exam GI & Abdominal Exam: Soft, Normal Bowel Sounds. 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 08/06: Patient is accepting some medications, but still refusing others 08/05: Patient seen by psychiatry, Dr. Bajwa, help appreciated. Haldol IV: Haldol 2mg IM Q6 PRN 08/04: Re-consult psych for possible medication adjustments, as patient is refusing most PO medications including Haldol. 08/03: All meds per Psychiatry Psych consult - Dr. Galicia - f/u recs Continue Ativan 1mg IVP Q4H PRN agiation Haldol 2mg IM Q6 PRN, agitation Haldol 2mg PO Q6H PRN, moderate agitation Depression 08/05: Patient seen by psychiatry, Dr. Bajwa, help appreciated. 08/03: All meds per Psychiatry 07/30: improving 07/24: Suicidal ideations Psych reconsulted - Dr. Galicia - f/u recs 07/23: Pending placement 07/22: Patient is pending placement. 07/21 continue current management, add megace for appetite stimulant. Psych Dr. Bajwa consulted, help appreciated. Continue Remeron and Seroquel. Ativan 1mg IVP q4H PRN for agitation. Chest Pain - Resolved JAREK negative EKG with LBBB as prior EKGs have also shown Cardio consult - Dr. Marinelli - help appreciated ECHO - left ventricular is normal size. there is mild to moderate concentric left ventricular hypertrophy. the systolic function is midly to moderately impaired. septal hypokinesis. mild to moderate aortic regurgitation. mild pulmonary hypertension. (please see full report) Nodular opacity in chest Pulm consult - Dr. Hayden - help appreciated Chest CT - extensive bilateral fine nodular interstitial infiltrate both lower lobes. dense pleural based consolidation right lower lobe. subpleural emphysema. mild centrilobular pulmonary emphysema. left upper lobe nodules. 7mm and 9mm. reccomend f/u noncontrast chest CT in 3 months. Multiple left upper lobe nodular calcifications, likely granulomatous. probable small airways disease posterior right upper lobe. findings are nonspecific and may reflect infection or inflammatory disease. Patient needs to f/u outpatient per Dr. Hayden for nodular opacity in chest + COPD. COPD Pulm consult - Dr. Hayden - help appreciated Advair and Spiriva DM RISS, accuchecks. Lantus 10U SC HS, Metformin Hypothyroid Continue synthroid. COPD Duoneb q6. Spiriva. Hx of cardiac disease Continue Eliquis, ASA, Crestor. Prophylactic measure eliquis, Protonix. Social work referral. All Medical Management per Dr. Solis Disposition: Possible placement at [facility], however patient is refusing to go. Possible guardianship issue as patient is not AAO x3
[2016-08-06 07:58] LABS: BASO # 0.1 K/uL (0.0-0.2); BASO % 0.7 % (0.0-2.0); EOS # 0.1 K/uL (0.0-0.7); EOS % 0.6 % (0.0-4.0); HEMATOCRIT 32.8 % (35.0-51.0); LYMPH # 2.6 K/uL (1.0-4.3); LYMPH % 27.2 % (20.0-40.0); MEAN CELL VOLUME 84.9 fL (80.0-94.0); MEAN CORPUSCULAR HEMOGLOBIN 27.9 pg (27.0-31.0); MEAN CORPUSCULAR HGB CONC 32.9 g/dL (33.0-37.0); MEAN PLATELET VOLUME 8.2 fL (7.2-11.7); MONO # 0.9 K/uL (0.0-0.8); MONO % 9.7 % (0.0-10.0); NRBC % 0.1 % (0.0-2.0); RED CELL DISTRIBUTION WIDTH 19.9 % (11.5-14.5); WHITE BLOOD COUNT 9.5 K/uL (4.8-10.8)
[2016-08-06] MEDS: Fluticasone-Salmeterol 250-50mcg Diskus INH SCH ×2 (08:00→20:23)
[2016-08-06] MEDS: Tiotropium 18 mcg Cap For Inhalation INH SCH (08:00)
[2016-08-06] MEDS: (Novolog) Insulin Aspart, Recombinant 100 u/ml 10 ml vial SC SCH ×4 (08:13→21:32)
[2016-08-06 08:23] LABS: CHLORIDE 110 mmol/L (98-107); POTASSIUM 3.8 mmol/L (3.6-5.2); SODIUM 140 mmol/L (132-148)
[2016-08-06 08:25] LABS: ALB/GLOB RATIO 0.9 (1.0-2.1); ALKALINE PHOSPHATASE 49 U/L (38-126); AST/SGOT 23 U/L (17-59); BILIRUBIN,TOTAL 0.5 mg/dL (0.2-1.3); CARBON DIOXIDE 21 mmol/L (22-30); GFR AFRICAN-AMERICAN > 60; TOTAL PROTEIN 6.8 g/dL (6.3-8.3)
[2016-08-06 08:26] LABS: ALT/SGPT 21 U/L (21-72); BLOOD UREA NITROGEN 24 mg/dL (9-20); CALCIUM 8.8 mg/dl (8.6-10.4); GLUCOSE,RANDOM 109 mg/dL (75-110); PHOSPHOROUS 3.2 mg/dL (2.5-4.5)
[2016-08-06] MEDS: Pantoprazole 40 mg EC Tab PO SCH (09:45)
[2016-08-06] MEDS: guaiFENesin DM 200 mg-20 mg/10 ml UD PO SCH ×3 (09:48→17:43)
[2016-08-06] MEDS: Calcium Carbonate 500 mg Chewable Antacid Tab PO SCH ×2 (09:49→17:43)
--- NOTE | 2016-08-06 15:49 | CP.PCM.PN ---
Subjective - Date & Time of Evaluation Date of Evaluation: 08/06/16 Time of Evaluation: 07:20 - Subjective Subjective: clinically same Objective - Vital Signs/Intake and Output Vital Signs (last 24 hours): Temp Pulse Resp BP Pulse Ox 98.1 F 69 20 108/63 97 08/06/16 08:00 08/06/16 08:00 08/06/16 08:00 08/06/16 08:00 08/06/16 08:00 Intake and Output: 08/06/16 08/06/16 06:59 18:59 Intake Total 500 Balance 500 - Medications Medications: Current Medications Aspirin (Aspirin Chewable) 81 mg PO DAILY [facility] Last Admin: 08/06/16 09:45 Dose: 81 mg Calcium Carbonate (Tums) 500 mg PO BID [facility] Last Admin: 08/06/16 09:49 Dose: Not Given Diphenhydramine HCl (Benadryl) 25 mg PO Q6 PRN PRN Reason: Extra Pyramidal Symptoms Ferrous Sulfate (Feosol) 325 mg PO DAILY [facility] Last Admin: 08/06/16 09:46 Dose: 325 mg Guaifenesin/Dextromethorphan (Robitussin Dm) 10 ml PO TID [facility] Last Admin: 08/06/16 14:40 Dose: Not Given Haloperidol (Haldol) 2 mg PO Q6 PRN PRN Reason: Moderate Agitation Haloperidol Lactate (Haldol) 2 mg IM Q6 PRN PRN Reason: Agitation Last Admin: 08/06/16 03:04 Dose: 2 mg Insulin Aspart (Novolog) 0 unit SC [facility] PRN Reason: Protocol Last Admin: 08/06/16 14:39 Dose: Not Given Insulin Glargine (Lantus) 10 unit SC [facility] Last Admin: 08/05/16 21:14 Dose: Not Given Levothyroxine Sodium (Synthroid) 37.5 mcg PO DAILY@0630 [facility] Last Admin: 08/06/16 06:20 Dose: 37.5 mcg Lorazepam (Ativan) 0.5 mg PO Q8 [facility] Last Admin: 08/06/16 14:46 Dose: 0.5 mg Lorazepam (Ativan) 1 mg IM Q6H PRN PRN Reason: Agitation Last Admin: 08/05/16 20:53 Dose: 1 mg Megestrol Acetate (Megace) 40 mg PO DAILY [facility] Last Admin: 08/06/16 14:46 Dose: 40 mg Metformin HCl (Glucophage) 1,000 mg PO BID [facility] Last Admin: 08/06/16 09:49 Dose: Not Given Mirtazapine (Remeron) 7.5 mg PO [facility] Last Admin: 08/05/16 21:15 Dose: Not Given Pantoprazole Sodium (Protonix Ec Tab) 40 mg PO DAILY [facility] Last Admin: 08/06/16 09:45 Dose: 40 mg Quetiapine Fumarate (Seroquel) 50 mg PO [facility] Last Admin: 08/05/16 21:15 Dose: Not Given Quetiapine Fumarate (Seroquel) 50 mg PO DAILY [facility] Last Admin: 08/06/16 09:47 Dose: 50 mg Rosuvastatin Calcium (Crestor) 5 mg PO [facility] Last Admin: 08/05/16 21:14 Dose: Not Given Fluticasone/Salmeterol (Advair Diskus 250/50) 1 puff INH RQ12 [facility] Last Admin: 08/06/16 08:00 Dose: Not Given Tamsulosin HCl (Flomax) 0.4 mg PO DAILY [facility] Last Admin: 08/06/16 09:45 Dose: 0.4 mg Tiotropium [place] (Spiriva) 18 mcg INH RQ24 [facility] Last Admin: 08/06/16 08:00 Dose: Not Given Tramadol HCl (Ultram) 50 mg PO Q12 PRN PRN Reason: Pain, moderate (4-7) Last Admin: 08/06/16 09:43 Dose: 50 mg - Labs Labs: 08/06/16 07:39 08/06/16 07:39 - Constitutional Appears: Well - Head Exam Head Exam: ATRAUMATIC, NORMAL INSPECTION, NORMOCEPHALIC - Eye Exam Eye Exam: EOMI, Normal appearance, PERRL Pupil Exam: NORMAL ACCOMODATION, PERRL - ENT Exam ENT Exam: Mucous Membranes Moist, Normal Exam - Neck Exam Neck Exam: Full ROM, Normal Inspection. absent: Lymphadenopathy - Respiratory Exam Respiratory Exam: Decreased Breath Sounds - Cardiovascular Exam Cardiovascular Exam: REGULAR RHYTHM, +S1, +S2 - GI/Abdominal Exam GI & Abdominal Exam: Soft, Diminished Bowel Sounds - Rectal Exam Rectal Exam: Deferred Assessment and Plan (1) Abnormal CXR (chest x-ray) Status: Acute (2) COPD (chronic obstructive pulmonary disease) Status: Acute (3) COPD exacerbation Status: Acute (4) Cardiac disease Status: Acute (5) Compression fracture of L2 Status: Acute (6) Depression Status: Acute (7) Diabetes Status: Acute - Assessment and Plan (Free Text) Plan: pt better answering properly Dr Garett flores
--- NOTE | 2016-08-06 18:53 | CARD ---
APPROVED REPORT EKG Measurement Heart [id number] <Conclusion> Normal sinus rhythm with sinus arrhythmia Left bundle branch block Abnormal ECG
[2016-08-06] MEDS: (Lantus) Insulin Glargine, Recombinant SC SCH (21:30)
[2016-08-07] MEDS: Levothyroxine 75 MCG TAB PO SCH (06:20)
[2016-08-07] MEDS: (Novolog) Insulin Aspart, Recombinant 100 u/ml 10 ml vial SC SCH ×4 (07:30→22:37)
[2016-08-07 08:13] LABS: BASO # 0.1 K/uL (0.0-0.2); EOS # 0.1 K/uL (0.0-0.7); EOS % 1.1 % (0.0-4.0); HEMATOCRIT 32.7 % (35.0-51.0); LYMPH # 2.3 K/uL (1.0-4.3); LYMPH % 26.8 % (20.0-40.0); MEAN CELL VOLUME 84.4 fL (80.0-94.0); MEAN CORPUSCULAR HEMOGLOBIN 27.4 pg (27.0-31.0); MEAN CORPUSCULAR HGB CONC 32.5 g/dL (33.0-37.0); MEAN PLATELET VOLUME 8.1 fL (7.2-11.7); MONO # 0.8 K/uL (0.0-0.8); MONO % 9.4 % (0.0-10.0); NRBC % 0.1 % (0.0-2.0); RED CELL DISTRIBUTION WIDTH 20.5 % (11.5-14.5); WHITE BLOOD COUNT 8.5 K/uL (4.8-10.8)
[2016-08-07 08:25] LABS: CHLORIDE 108 mmol/L (98-107); SODIUM 139 mmol/L (132-148)
[2016-08-07 08:26] LABS: POTASSIUM 3.8 mmol/L (3.6-5.2)
[2016-08-07 08:28] LABS: ALB/GLOB RATIO 0.9 (1.0-2.1); ALKALINE PHOSPHATASE 48 U/L (38-126); ALT/SGPT 17 U/L (21-72); AST/SGOT 15 U/L (17-59); BILIRUBIN,TOTAL 0.5 mg/dL (0.2-1.3); BLOOD UREA NITROGEN 25 mg/dL (9-20); CARBON DIOXIDE 23 mmol/L (22-30); GFR AFRICAN-AMERICAN > 60; TOTAL PROTEIN 6.5 g/dL (6.3-8.3)
[2016-08-07 08:29] LABS: CALCIUM 8.6 mg/dl (8.6-10.4); GLUCOSE,RANDOM 105 mg/dL (75-110); PHOSPHOROUS 3.3 mg/dL (2.5-4.5)
[2016-08-07] MEDS: guaiFENesin DM 200 mg-20 mg/10 ml UD PO SCH ×3 (10:00→18:02)
[2016-08-07] MEDS: Calcium Carbonate 500 mg Chewable Antacid Tab PO SCH ×2 (10:00→17:54)
[2016-08-07] MEDS: Pantoprazole 40 mg EC Tab PO SCH (10:00)
[2016-08-07] MEDS: Tiotropium 18 mcg Cap For Inhalation INH SCH (11:46)
[2016-08-07] MEDS: Fluticasone-Salmeterol 250-50mcg Diskus INH SCH ×2 (11:46→20:20)
--- NOTE | 2016-08-07 16:30 | CP.PCM.PN ---
Subjective - Date & Time of Evaluation Date of Evaluation: 08/07/16 Time of Evaluation: 09:45 - Subjective Subjective: PGY2 Medicine Note Dr Solis's service Patient seen and examined. Patient recently received haldol prior to examination and patient resting comfortable. Patient only states that he does not feel well in regards to ROS. Objective - Vital Signs/Intake and Output Vital Signs (last 24 hours): Temp Pulse Resp BP Pulse Ox 97.9 F 68 20 135/71 98 08/06/16 23:45 08/06/16 23:45 08/06/16 23:45 08/06/16 23:45 08/06/16 23:45 Intake and Output: 08/07/16 08/07/16 06:59 18:59 Intake Total 150 300 Output Total 250 Balance -100 300 - Medications Medications: Current Medications Aspirin (Aspirin Chewable) 81 mg PO DAILY [facility] Last Admin: 08/07/16 10:00 Dose: 81 mg Calcium Carbonate (Tums) 500 mg PO BID [facility] Last Admin: 08/07/16 10:00 Dose: 500 mg Diphenhydramine HCl (Benadryl) 25 mg PO Q6 PRN PRN Reason: Extra Pyramidal Symptoms Last Admin: 08/06/16 18:19 Dose: 25 mg Ferrous Sulfate (Feosol) 325 mg PO DAILY [facility] Last Admin: 08/07/16 10:00 Dose: 325 mg Guaifenesin/Dextromethorphan (Robitussin Dm) 10 ml PO TID [facility] Last Admin: 08/07/16 13:23 Dose: 10 ml Haloperidol (Haldol) 2 mg PO Q6 PRN PRN Reason: Moderate Agitation Last Admin: 08/07/16 08:30 Dose: 2 mg Haloperidol Lactate (Haldol) 2 mg IM Q6 PRN PRN Reason: Agitation Last Admin: 08/07/16 09:30 Dose: 2 mg Insulin Aspart (Novolog) 0 unit SC ACHS [facility] PRN Reason: Protocol Last Admin: 08/07/16 11:30 Dose: Not Given Levothyroxine Sodium (Synthroid) 37.5 mcg PO DAILY@0630 [facility] Last Admin: 08/07/16 06:20 Dose: 37.5 mcg Lorazepam (Ativan) 0.5 mg PO Q8 [facility] Last Admin: 08/07/16 13:23 Dose: 0.5 mg Lorazepam (Ativan) 1 mg IM Q6H PRN PRN Reason: Agitation Last Admin: 08/05/16 20:53 Dose: 1 mg Megestrol Acetate (Megace) 40 mg PO DAILY [facility] Last Admin: 08/07/16 10:05 Dose: 40 mg Metformin HCl (Glucophage) 1,000 mg PO BID [facility] Last Admin: 08/07/16 10:00 Dose: 1,000 mg Mirtazapine (Remeron) 7.5 mg PO [facility] Last Admin: 08/06/16 21:25 Dose: 7.5 mg Pantoprazole Sodium (Protonix Ec Tab) 40 mg PO DAILY [facility] Last Admin: 08/07/16 10:00 Dose: 40 mg Quetiapine Fumarate (Seroquel) 50 mg PO HS [facility] Last Admin: 08/06/16 21:32 Dose: Not Given Quetiapine Fumarate (Seroquel) 50 mg PO DAILY [facility] Last Admin: 08/07/16 10:00 Dose: 50 mg Rosuvastatin Calcium (Crestor) 5 mg PO [facility] Last Admin: 08/06/16 21:24 Dose: 5 mg Fluticasone/Salmeterol (Advair Diskus 250/50) 1 puff INH RQ12 [facility] Last Admin: 08/07/16 11:46 Dose: Not Given Tamsulosin HCl (Flomax) 0.4 mg PO DAILY [facility] Last Admin: 08/07/16 10:00 Dose: 0.4 mg Tiotropium [place] (Spiriva) 18 mcg INH RQ24 [facility] Last Admin: 08/07/16 11:46 Dose: Not Given Tramadol HCl (Ultram) 50 mg PO Q12 PRN PRN Reason: Pain, moderate (4-7) Last Admin: 08/07/16 08:30 Dose: 50 mg - Labs Labs: 08/07/16 08:04 08/07/16 08:04 - Constitutional Appears: No Acute Distress, Cachectic, Chronically Ill - Head Exam Head Exam: ATRAUMATIC - Eye Exam Eye Exam: EOMI - ENT Exam ENT Exam: Mucous Membranes Moist - Respiratory Exam Respiratory Exam: Clear to Ausculation Bilateral, NORMAL BREATHING PATTERN - Cardiovascular Exam Cardiovascular Exam: +S1, +S2 - GI/Abdominal Exam GI & Abdominal Exam: Soft, Normal Bowel Sounds. absent: Tenderness - Extremities Exam Extremities Exam: Normal Inspection - Neurological Exam Neurological Exam: Alert, Awake. 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 08/07: patient refused seroquel last night 08/06: Patient is accepting some medications, but still refusing others 08/05: Patient seen by psychiatry, Dr. Bajwa, help appreciated. Haldol IV: Haldol 2mg IM Q6 PRN 08/04: Re-consult psych for possible medication adjustments, as patient is refusing most PO medications including Haldol. 08/03: All meds per Psychiatry Psych consult - Dr. Galicia - f/u recs Continue Ativan 1mg IVP Q4H PRN agiation Haldol 2mg IM Q6 PRN, agitation Haldol 2mg PO Q6H PRN, moderate agitation Depression 08/06: Patient seen by psychiatry, Dr. Bajwa, help appreciated. 08/03: All meds per Psychiatry 07/30: improving 07/24: Suicidal ideations Psych reconsulted - Dr. Galicia - f/u recs 07/23: Pending placement 07/22: Patient is pending placement. 07/21 continue current management, add megace for appetite stimulant. Psych Dr. Bajwa consulted, help appreciated. Continue Remeron and Seroquel. Ativan 1mg IVP q4H PRN for agitation. Chest Pain - Resolved JAREK negative EKG with LBBB as prior EKGs have also shown Cardio consult - Dr. Marinelli - help appreciated ECHO - left ventricular is normal size. there is mild to moderate concentric left ventricular hypertrophy. the systolic function is midly to moderately impaired. septal hypokinesis. mild to moderate aortic regurgitation. mild pulmonary hypertension. (please see full report) Nodular opacity in chest Pulm consult - Dr. Hayden - help appreciated Chest CT - extensive bilateral fine nodular interstitial infiltrate both lower lobes. dense pleural based consolidation right lower lobe. subpleural emphysema. mild centrilobular pulmonary emphysema. left upper lobe nodules. 7mm and 9mm. reccomend f/u noncontrast chest CT in 3 months. Multiple left upper lobe nodular calcifications, likely granulomatous. probable small airways disease posterior right upper lobe. findings are nonspecific and may reflect infection or inflammatory disease. Patient needs to f/u outpatient per Dr. Hayden for nodular opacity in chest + COPD. COPD Pulm consult - Dr. Hayden - help appreciated Advair and Spiriva DM RISS, accuchecks. Lantus 10U SC HS, Metformin Hypothyroid Continue synthroid. COPD Duoneb q6. Spiriva. Hx of cardiac disease Continue Eliquis, ASA, Crestor. Prophylactic measure eliquis, Protonix. Social work referral. All Medical Management per Dr. Solis Disposition: Possible placement at [facility], however patient is refusing to go. Possible guardianship issue as patient is not AAO x3
--- NOTE | 2016-08-07 17:28 | CP.PCM.PN ---
Subjective - Date & Time of Evaluation Date of Evaluation: 08/07/16 Time of Evaluation: 07:20 - Subjective Subjective: clinically same Objective - Vital Signs/Intake and Output Vital Signs (last 24 hours): Temp Pulse Resp BP Pulse Ox 97.9 F 68 20 135/71 98 08/06/16 23:45 08/06/16 23:45 08/06/16 23:45 08/06/16 23:45 08/06/16 23:45 Intake and Output: 08/07/16 08/07/16 06:59 18:59 Intake Total 150 300 Output Total 250 Balance -100 300 - Medications Medications: Current Medications Aspirin (Aspirin Chewable) 81 mg PO DAILY [facility] Last Admin: 08/07/16 10:00 Dose: 81 mg Calcium Carbonate (Tums) 500 mg PO BID [facility] Last Admin: 08/07/16 10:00 Dose: 500 mg Diphenhydramine HCl (Benadryl) 25 mg PO Q6 PRN PRN Reason: Extra Pyramidal Symptoms Last Admin: 08/06/16 18:19 Dose: 25 mg Ferrous Sulfate (Feosol) 325 mg PO DAILY [facility] Last Admin: 08/07/16 10:00 Dose: 325 mg Guaifenesin/Dextromethorphan (Robitussin Dm) 10 ml PO TID [facility] Last Admin: 08/07/16 13:23 Dose: 10 ml Haloperidol (Haldol) 2 mg PO Q6 PRN PRN Reason: Moderate Agitation Last Admin: 08/07/16 08:30 Dose: 2 mg Haloperidol Lactate (Haldol) 2 mg IM Q6 PRN PRN Reason: Agitation Last Admin: 08/07/16 09:30 Dose: 2 mg Insulin Aspart (Novolog) 0 unit SC ACHS [facility] PRN Reason: Protocol Last Admin: 08/07/16 11:30 Dose: Not Given Levothyroxine Sodium (Synthroid) 37.5 mcg PO DAILY@0630 [facility] Last Admin: 08/07/16 06:20 Dose: 37.5 mcg Lorazepam (Ativan) 0.5 mg PO Q8 [facility] Last Admin: 08/07/16 13:23 Dose: 0.5 mg Lorazepam (Ativan) 1 mg IM Q6H PRN PRN Reason: Agitation Last Admin: 08/05/16 20:53 Dose: 1 mg Megestrol Acetate (Megace) 40 mg PO DAILY [facility] Last Admin: 08/07/16 10:05 Dose: 40 mg Metformin HCl (Glucophage) 1,000 mg PO BID [facility] Last Admin: 08/07/16 10:00 Dose: 1,000 mg Mirtazapine (Remeron) 7.5 mg PO [facility] Last Admin: 08/06/16 21:25 Dose: 7.5 mg Pantoprazole Sodium (Protonix Ec Tab) 40 mg PO DAILY [facility] Last Admin: 08/07/16 10:00 Dose: 40 mg Quetiapine Fumarate (Seroquel) 50 mg PO HS [facility] Last Admin: 08/06/16 21:32 Dose: Not Given Quetiapine Fumarate (Seroquel) 50 mg PO DAILY [facility] Last Admin: 08/07/16 10:00 Dose: 50 mg Rosuvastatin Calcium (Crestor) 5 mg PO [facility] Last Admin: 08/06/16 21:24 Dose: 5 mg Fluticasone/Salmeterol (Advair Diskus 250/50) 1 puff INH RQ12 [facility] Last Admin: 08/07/16 11:46 Dose: Not Given Tamsulosin HCl (Flomax) 0.4 mg PO DAILY [facility] Last Admin: 08/07/16 10:00 Dose: 0.4 mg Tiotropium [place] (Spiriva) 18 mcg INH RQ24 [facility] Last Admin: 08/07/16 11:46 Dose: Not Given Tramadol HCl (Ultram) 50 mg PO Q12 PRN PRN Reason: Pain, moderate (4-7) Last Admin: 08/07/16 08:30 Dose: 50 mg - Labs Labs: 08/07/16 08:04 08/07/16 08:04 - Constitutional Appears: Well - Head Exam Head Exam: ATRAUMATIC, NORMAL INSPECTION, NORMOCEPHALIC - Eye Exam Eye Exam: EOMI, Normal appearance, PERRL Pupil Exam: NORMAL ACCOMODATION, PERRL - ENT Exam ENT Exam: Mucous Membranes Moist, Normal Exam - Neck Exam Neck Exam: Full ROM, Normal Inspection. absent: Lymphadenopathy - Respiratory Exam Respiratory Exam: Decreased Breath Sounds - Cardiovascular Exam Cardiovascular Exam: REGULAR RHYTHM, +S1, +S2 - GI/Abdominal Exam GI & Abdominal Exam: Soft, Diminished Bowel Sounds - Rectal Exam Rectal Exam: Deferred Assessment and Plan (1) Abnormal CXR (chest x-ray) Status: Acute (2) COPD (chronic obstructive pulmonary disease) Status: Acute (3) COPD exacerbation Status: Acute (4) Cardiac disease Status: Acute (5) Compression fracture of L2 Status: Acute (6) Depression Status: Acute (7) Diabetes Status: Acute - Assessment and Plan (Free Text) Plan: improving Dr Aris Moulton insulin blood sugar monitoring synthyroid 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
[2016-08-08] MEDS: Levothyroxine 75 MCG TAB PO SCH (06:10)
[2016-08-08 07:28] LABS: BASO # 0.1 K/uL (0.0-0.2); BASO % 0.8 % (0.0-2.0); EOS # 0.1 K/uL (0.0-0.7); EOS % 1.2 % (0.0-4.0); HEMATOCRIT 31.2 % (35.0-51.0); LYMPH # 2.6 K/uL (1.0-4.3); LYMPH % 31.9 % (20.0-40.0); MEAN CORPUSCULAR HEMOGLOBIN 27.3 pg (27.0-31.0); MEAN CORPUSCULAR HGB CONC 32.1 g/dL (33.0-37.0); MEAN PLATELET VOLUME 8.3 fL (7.2-11.7); MONO # 0.8 K/uL (0.0-0.8); MONO % 10.2 % (0.0-10.0); RED CELL DISTRIBUTION WIDTH 19.9 % (11.5-14.5); WHITE BLOOD COUNT 8.2 K/uL (4.8-10.8)
[2016-08-08] MEDS: (Novolog) Insulin Aspart, Recombinant 100 u/ml 10 ml vial SC SCH ×4 (07:30→21:28)
[2016-08-08 07:35] LABS: CHLORIDE 108 mmol/L (98-107)
[2016-08-08 07:36] LABS: POTASSIUM 3.8 mmol/L (3.6-5.2); SODIUM 139 mmol/L (132-148)
[2016-08-08 07:38] LABS: ALB/GLOB RATIO 0.9 (1.0-2.1); ALKALINE PHOSPHATASE 43 U/L (38-126); ALT/SGPT 14 U/L (21-72); AST/SGOT 13 U/L (17-59); BILIRUBIN,TOTAL 0.5 mg/dL (0.2-1.3); BLOOD UREA NITROGEN 26 mg/dL (9-20); CARBON DIOXIDE 23 mmol/L (22-30); GFR AFRICAN-AMERICAN > 60; TOTAL PROTEIN 6.3 g/dL (6.3-8.3)
[2016-08-08 07:39] LABS: CALCIUM 8.5 mg/dl (8.6-10.4); GLUCOSE,RANDOM 85 mg/dL (75-110); MAGNESIUM 1.9 mg/dL (1.6-2.3); PHOSPHOROUS 3.4 mg/dL (2.5-4.5)
[2016-08-08] MEDS: Fluticasone-Salmeterol 250-50mcg Diskus INH SCH ×2 (07:53→19:44)
[2016-08-08] MEDS: Tiotropium 18 mcg Cap For Inhalation INH SCH (07:54)
--- NOTE | 2016-08-08 09:52 | CP.PCM.PN ---
Subjective - Date & Time of Evaluation Date of Evaluation: 08/08/16 Time of Evaluation: 07:20 - Subjective Subjective: clinically same Objective - Vital Signs/Intake and Output Vital Signs (last 24 hours): Temp Pulse Resp BP Pulse Ox 98 F 76 20 103/64 95 08/08/16 08:00 08/08/16 08:00 08/08/16 08:00 08/08/16 08:00 08/08/16 08:00 Intake and Output: 08/08/16 08/08/16 06:59 18:59 Intake Total 600 Balance 600 - Medications Medications: Current Medications Aspirin (Aspirin Chewable) 81 mg PO DAILY [facility] Last Admin: 08/07/16 10:00 Dose: 81 mg Calcium Carbonate (Tums) 500 mg PO BID [facility] Last Admin: 08/07/16 17:54 Dose: 500 mg Diphenhydramine HCl (Benadryl) 25 mg PO Q6 PRN PRN Reason: Extra Pyramidal Symptoms Last Admin: 08/06/16 18:19 Dose: 25 mg Ferrous Sulfate (Feosol) 325 mg PO DAILY [facility] Last Admin: 08/07/16 10:00 Dose: 325 mg Guaifenesin/Dextromethorphan (Robitussin Dm) 10 ml PO TID [facility] Last Admin: 08/07/16 18:02 Dose: Not Given Haloperidol (Haldol) 2 mg PO Q6 PRN PRN Reason: Moderate Agitation Last Admin: 08/07/16 08:30 Dose: 2 mg Haloperidol Lactate (Haldol) 2 mg IM Q6 PRN PRN Reason: Agitation Last Admin: 08/07/16 09:30 Dose: 2 mg Insulin Aspart (Novolog) 0 unit SC [facility] PRN Reason: Protocol Last Admin: 08/07/16 22:37 Dose: Not Given Levothyroxine Sodium (Synthroid) 37.5 mcg PO DAILY@0630 [facility] Last Admin: 08/08/16 06:10 Dose: 37.5 mcg Lorazepam (Ativan) 0.5 mg PO Q8 [facility] Last Admin: 08/08/16 06:07 Dose: 0.5 mg Lorazepam (Ativan) 1 mg IM Q6H PRN PRN Reason: Agitation Last Admin: 08/05/16 20:53 Dose: 1 mg Megestrol Acetate (Megace) 40 mg PO DAILY [facility] Last Admin: 08/07/16 10:05 Dose: 40 mg Metformin HCl (Glucophage) 1,000 mg PO BID [facility] Last Admin: 08/07/16 17:56 Dose: 1,000 mg Mirtazapine (Remeron) 7.5 mg PO HS [facility] Last Admin: 08/07/16 22:29 Dose: 7.5 mg Pantoprazole Sodium (Protonix Ec Tab) 40 mg PO DAILY [facility] Last Admin: 08/07/16 10:00 Dose: 40 mg Quetiapine Fumarate (Seroquel) 50 mg PO HS [facility] Last Admin: 08/07/16 22:30 Dose: 50 mg Quetiapine Fumarate (Seroquel) 50 mg PO DAILY [facility] Last Admin: 08/07/16 10:00 Dose: 50 mg Rosuvastatin Calcium (Crestor) 5 mg PO HS [facility] Last Admin: 08/07/16 22:37 Dose: 5 mg Fluticasone/Salmeterol (Advair Diskus 250/50) 1 puff INH RQ12 [facility] Last Admin: 08/08/16 07:53 Dose: 1 puff Tamsulosin HCl (Flomax) 0.4 mg PO DAILY [facility] Last Admin: 08/07/16 10:00 Dose: 0.4 mg Tiotropium [place] (Spiriva) 18 mcg INH RQ24 [facility] Last Admin: 08/08/16 07:54 Dose: 18 mcg Tramadol HCl (Ultram) 50 mg PO Q12 PRN PRN Reason: Pain, moderate (4-7) Last Admin: 08/07/16 22:29 Dose: 50 mg - Labs Labs: 08/08/16 07:15 08/08/16 07:11 - Constitutional Appears: Well - Head Exam Head Exam: ATRAUMATIC, NORMAL INSPECTION, NORMOCEPHALIC - Eye Exam Eye Exam: EOMI, Normal appearance, PERRL Pupil Exam: NORMAL ACCOMODATION, PERRL - ENT Exam ENT Exam: Mucous Membranes Moist, Normal Exam - Neck Exam Neck Exam: Full ROM, Normal Inspection. absent: Lymphadenopathy - Respiratory Exam Respiratory Exam: Decreased Breath Sounds - Cardiovascular Exam Cardiovascular Exam: REGULAR RHYTHM, +S1, +S2 - GI/Abdominal Exam GI & Abdominal Exam: Soft, Diminished Bowel Sounds - Rectal Exam Rectal Exam: Deferred Assessment and Plan (1) Abnormal CXR (chest x-ray) Status: Acute (2) COPD (chronic obstructive pulmonary disease) Status: Acute (3) COPD exacerbation Status: Acute (4) Cardiac disease Status: Acute (5) Compression fracture of L2 Status: Acute (6) Depression Status: Acute (7) Diabetes Status: Acute - Assessment and Plan (Free Text) Plan: jovi as ordered kevin Bajwa antidepressants talked with social science instructor ratna insulin
[2016-08-08] MEDS: Calcium Carbonate 500 mg Chewable Antacid Tab PO SCH ×2 (10:03→18:17)
[2016-08-08] MEDS: guaiFENesin DM 200 mg-20 mg/10 ml UD PO SCH ×3 (10:03→18:18)
[2016-08-08] MEDS: Pantoprazole 40 mg EC Tab PO SCH (10:07)
[2016-08-09] MEDS: Levothyroxine 75 MCG TAB PO SCH (05:54)
[2016-08-09] MEDS: Fluticasone-Salmeterol 250-50mcg Diskus INH SCH ×2 (07:34→19:14)
[2016-08-09] MEDS: Tiotropium 18 mcg Cap For Inhalation INH SCH (07:34)
[2016-08-09] MEDS: (Novolog) Insulin Aspart, Recombinant 100 u/ml 10 ml vial SC SCH ×4 (08:45→21:57)
[2016-08-09] MEDS: guaiFENesin DM 200 mg-20 mg/10 ml UD PO SCH ×3 (10:50→18:00)
[2016-08-09] MEDS: Pantoprazole 40 mg EC Tab PO SCH (10:51)
[2016-08-09] MEDS: Calcium Carbonate 500 mg Chewable Antacid Tab PO SCH ×2 (10:51→18:00)
[2016-08-09] MEDS ORDERED: Tramadol 25 mg PO SCH (14:00)
--- NOTE | 2016-08-09 14:51 | CP.PCM.PN ---
Subjective - Date & Time of Evaluation Date of Evaluation: 08/09/16 Time of Evaluation: 08:25 - Subjective Subjective: c.o back pain Objective - Vital Signs/Intake and Output Vital Signs (last 24 hours): Temp Pulse Resp BP Pulse Ox 98.2 F 71 20 109/61 98 08/09/16 00:10 08/09/16 00:10 08/09/16 00:10 08/09/16 00:10 08/09/16 00:10 Intake and Output: 08/09/16 08/09/16 06:59 18:59 Intake Total 340 Balance 340 - Medications Medications: Current Medications Aspirin (Aspirin Chewable) 81 mg PO DAILY [facility] Last Admin: 08/09/16 10:51 Dose: 81 mg Calcium Carbonate (Tums) 500 mg PO BID [facility] Last Admin: 08/09/16 10:51 Dose: 500 mg Diphenhydramine HCl (Benadryl) 25 mg PO Q6 PRN PRN Reason: Extra Pyramidal Symptoms Last Admin: 08/06/16 18:19 Dose: 25 mg Ferrous Sulfate (Feosol) 325 mg PO DAILY [facility] Last Admin: 08/09/16 10:50 Dose: 325 mg Guaifenesin/Dextromethorphan (Robitussin Dm) 10 ml PO TID [facility] Last Admin: 08/09/16 14:37 Dose: 10 ml Haloperidol (Haldol) 2 mg PO Q6 PRN PRN Reason: Moderate Agitation Last Admin: 08/07/16 08:30 Dose: 2 mg Haloperidol Lactate (Haldol) 2 mg IM Q6 PRN PRN Reason: Agitation Last Admin: 08/07/16 09:30 Dose: 2 mg Insulin Aspart (Novolog) 0 unit SC ACHS [facility] PRN Reason: Protocol Last Admin: 08/09/16 12:49 Dose: 4 unit Levothyroxine Sodium (Synthroid) 37.5 mcg PO DAILY@0630 [facility] Last Admin: 08/09/16 05:54 Dose: 37.5 mcg Lorazepam (Ativan) 0.5 mg PO Q8 [facility] Last Admin: 08/09/16 14:27 Dose: 0.5 mg Lorazepam (Ativan) 1 mg IM Q6H PRN PRN Reason: Agitation Last Admin: 08/09/16 06:53 Dose: 1 mg Megestrol Acetate (Megace) 40 mg PO DAILY [facility] Last Admin: 08/09/16 10:51 Dose: 40 mg Metformin HCl (Glucophage) 1,000 mg PO BID [facility] Last Admin: 08/09/16 10:52 Dose: Not Given Mirtazapine (Remeron) 7.5 mg PO HS [facility] Last Admin: 08/08/16 21:30 Dose: 7.5 mg Pantoprazole Sodium (Protonix Ec Tab) 40 mg PO DAILY [facility] Last Admin: 08/09/16 10:51 Dose: 40 mg Quetiapine Fumarate (Seroquel) 50 mg PO HS [facility] Last Admin: 08/08/16 21:30 Dose: 50 mg Quetiapine Fumarate (Seroquel) 50 mg PO DAILY [facility] Last Admin: 08/09/16 10:53 Dose: 50 mg Rosuvastatin Calcium (Crestor) 5 mg PO HS [facility] Last Admin: 08/08/16 21:27 Dose: 5 mg Fluticasone/Salmeterol (Advair Diskus 250/50) 1 puff INH RQ12 [facility] Last Admin: 08/09/16 07:34 Dose: Not Given Tamsulosin HCl (Flomax) 0.4 mg PO DAILY [facility] Last Admin: 08/09/16 10:50 Dose: 0.4 mg Tiotropium [place] (Spiriva) 18 mcg INH RQ24 [facility] Last Admin: 08/09/16 07:34 Dose: Not Given Tramadol HCl (Ultram) 50 mg PO Q6H PRN PRN Reason: back pain Last Admin: 08/09/16 14:25 Dose: 50 mg - Labs Labs: 08/08/16 07:15 08/08/16 07:11 - Constitutional Appears: Well - Head Exam Head Exam: ATRAUMATIC, NORMAL INSPECTION, NORMOCEPHALIC - Eye Exam Eye Exam: EOMI, Normal appearance, PERRL Pupil Exam: NORMAL ACCOMODATION, PERRL - ENT Exam ENT Exam: Mucous Membranes Moist, Normal Exam - Neck Exam Neck Exam: Full ROM, Normal Inspection. absent: Lymphadenopathy - Respiratory Exam Respiratory Exam: Decreased Breath Sounds - Cardiovascular Exam Cardiovascular Exam: REGULAR RHYTHM, +S1, +S2 - GI/Abdominal Exam GI & Abdominal Exam: Soft, Diminished Bowel Sounds - Rectal Exam Rectal Exam: Deferred Assessment and Plan (1) Abnormal CXR (chest x-ray) Status: Acute (2) COPD (chronic obstructive pulmonary disease) Status: Acute (3) COPD exacerbation Status: Acute (4) Cardiac disease Status: Acute (5) Depression Status: Acute (6) Diabetes Status: Acute - Assessment and Plan (Free Text) Plan: clinically same legal gaurdain ship as no safe way to dicshrge rehab refsues to take pt where he came back from [facility] lumbosacral jovi same
[2016-08-10] MEDS: Levothyroxine 75 MCG TAB PO SCH (06:33)
[2016-08-10] MEDS: Fluticasone-Salmeterol 250-50mcg Diskus INH SCH ×2 (08:15→21:17)
[2016-08-10] MEDS: Tiotropium 18 mcg Cap For Inhalation INH SCH (08:16)
[2016-08-10] MEDS: (Novolog) Insulin Aspart, Recombinant 100 u/ml 10 ml vial SC SCH ×4 (08:48→22:07)
--- NOTE | 2016-08-10 09:08 | CP.PCM.PN ---
Subjective - Date & Time of Evaluation Date of Evaluation: 08/10/16 Time of Evaluation: 07:20 - Subjective Subjective: clinically same Objective - Vital Signs/Intake and Output Vital Signs (last 24 hours): Temp Pulse Resp BP Pulse Ox 98.4 F 81 20 151/70 H 97 08/09/16 17:41 08/09/16 17:41 08/09/16 17:41 08/09/16 17:41 08/09/16 17:41 Intake and Output: 08/10/16 08/10/16 06:59 18:59 Intake Total 340 Balance 340 - Medications Medications: Current Medications Aspirin (Aspirin Chewable) 81 mg PO DAILY [facility] Last Admin: 08/09/16 10:51 Dose: 81 mg Calcium Carbonate (Tums) 500 mg PO BID [facility] Last Admin: 08/09/16 18:00 Dose: Not Given Diphenhydramine HCl (Benadryl) 25 mg PO Q6 PRN PRN Reason: Extra Pyramidal Symptoms Last Admin: 08/06/16 18:19 Dose: 25 mg Ferrous Sulfate (Feosol) 325 mg PO DAILY [facility] Last Admin: 08/09/16 10:50 Dose: 325 mg Guaifenesin/Dextromethorphan (Robitussin Dm) 10 ml PO TID [facility] Last Admin: 08/09/16 18:00 Dose: 10 ml Haloperidol (Haldol) 2 mg PO Q6 PRN PRN Reason: Moderate Agitation Last Admin: 08/10/16 00:09 Dose: 2 mg Haloperidol Lactate (Haldol) 2 mg IM Q6 PRN PRN Reason: Agitation Last Admin: 08/07/16 09:30 Dose: 2 mg Insulin Aspart (Novolog) 0 unit SC ACHS [facility] PRN Reason: Protocol Last Admin: 08/10/16 08:48 Dose: Not Given Levothyroxine Sodium (Synthroid) 37.5 mcg PO DAILY@0630 [facility] Last Admin: 08/10/16 06:33 Dose: 37.5 mcg Lorazepam (Ativan) 0.5 mg PO Q8 [facility] Last Admin: 08/10/16 06:16 Dose: 0.5 mg Lorazepam (Ativan) 1 mg IM Q6H PRN PRN Reason: Agitation Last Admin: 08/10/16 00:08 Dose: 1 mg Megestrol Acetate (Megace) 40 mg PO DAILY [facility] Last Admin: 08/09/16 10:51 Dose: 40 mg Metformin HCl (Glucophage) 1,000 mg PO BID [facility] Last Admin: 08/09/16 18:00 Dose: Not Given Mirtazapine (Remeron) 7.5 mg PO HS [facility] Last Admin: 08/09/16 21:58 Dose: 7.5 mg Pantoprazole Sodium (Protonix Ec Tab) 40 mg PO DAILY [facility] Last Admin: 08/09/16 10:51 Dose: 40 mg Quetiapine Fumarate (Seroquel) 50 mg PO HS [facility] Last Admin: 08/09/16 21:58 Dose: 50 mg Quetiapine Fumarate (Seroquel) 50 mg PO DAILY [facility] Last Admin: 08/09/16 10:53 Dose: 50 mg Rosuvastatin Calcium (Crestor) 5 mg PO [facility] Last Admin: 08/09/16 21:56 Dose: 5 mg Fluticasone/Salmeterol (Advair Diskus 250/50) 1 puff INH RQ12 [facility] Last Admin: 08/10/16 08:15 Dose: Not Given Tamsulosin HCl (Flomax) 0.4 mg PO DAILY [facility] Last Admin: 08/09/16 10:50 Dose: 0.4 mg Tiotropium [place] (Spiriva) 18 mcg INH RQ24 [facility] Last Admin: 08/10/16 08:16 Dose: Not Given Tramadol HCl (Ultram) 50 mg PO Q6H PRN PRN Reason: back pain Last Admin: 08/10/16 00:09 Dose: 50 mg - Labs Labs: 08/08/16 07:15 08/08/16 07:11 - Constitutional Appears: Well - Head Exam Head Exam: ATRAUMATIC, NORMAL INSPECTION, NORMOCEPHALIC - Eye Exam Eye Exam: EOMI, Normal appearance, PERRL Pupil Exam: NORMAL ACCOMODATION, PERRL - ENT Exam ENT Exam: Mucous Membranes Moist, Normal Exam - Neck Exam Neck Exam: Full ROM, Normal Inspection. absent: Lymphadenopathy - Respiratory Exam Respiratory Exam: Decreased Breath Sounds - Cardiovascular Exam Cardiovascular Exam: REGULAR RHYTHM, +S1, +S2 - GI/Abdominal Exam GI & Abdominal Exam: Soft, Diminished Bowel Sounds - Rectal Exam Rectal Exam: Deferred Assessment and Plan (1) Abnormal CXR (chest x-ray) Status: Acute (2) COPD (chronic obstructive pulmonary disease) Status: Acute (3) COPD exacerbation Status: Acute (4) Cardiac disease Status: Acute (5) Depression Status: Acute (6) Diabetes Status: Acute - Assessment and Plan (Free Text) Plan: lumbosacral xray noted neuro consult legal gaurdianship jovi same haldol pain meds blood sugar monitoring
[2016-08-10] MEDS: Pantoprazole 40 mg EC Tab PO SCH (09:29)
[2016-08-10] MEDS: guaiFENesin DM 200 mg-20 mg/10 ml UD PO SCH ×3 (09:30→18:05)
--- NOTE | 2016-08-10 09:51 | CP.PCM.PN ---
Subjective - Date & Time of Evaluation Date of Evaluation: 08/10/16 Time of Evaluation: 07:15 - Subjective Subjective: PGY2 Medicine Note Dr Solis's service Patient seen and examined. Patient has been receiving his haldol regularly, and appears less paranoid. Previously he though medical staff were attempting to assassinate him. Patient is only oriented to himself, not place or time. ROS unobtainable due to cooperation. Objective - Vital Signs/Intake and Output Vital Signs (last 24 hours): Temp Pulse Resp BP Pulse Ox 97.7 F 70 20 96/62 L 97 08/10/16 09:00 08/10/16 09:00 08/10/16 09:00 08/10/16 09:00 08/10/16 09:00 Intake and Output: 08/10/16 08/10/16 06:59 18:59 Intake Total 340 Balance 340 - Medications Medications: Current Medications Aspirin (Aspirin Chewable) 81 mg PO DAILY [facility] Last Admin: 08/09/16 10:51 Dose: 81 mg Calcium Carbonate (Tums) 500 mg PO BID [facility] Last Admin: 08/09/16 18:00 Dose: Not Given Diphenhydramine HCl (Benadryl) 25 mg PO Q6 PRN PRN Reason: Extra Pyramidal Symptoms Last Admin: 08/06/16 18:19 Dose: 25 mg Ferrous Sulfate (Feosol) 325 mg PO DAILY [facility] Last Admin: 08/10/16 09:29 Dose: 325 mg Guaifenesin/Dextromethorphan (Robitussin Dm) 10 ml PO TID [facility] Last Admin: 08/10/16 09:30 Dose: 10 ml Haloperidol (Haldol) 2 mg PO Q6 PRN PRN Reason: Moderate Agitation Last Admin: 08/10/16 00:09 Dose: 2 mg Haloperidol Lactate (Haldol) 2 mg IM Q6 PRN PRN Reason: Agitation Last Admin: 08/07/16 09:30 Dose: 2 mg Insulin Aspart (Novolog) 0 unit SC ACHS [facility] PRN Reason: Protocol Last Admin: 08/10/16 08:48 Dose: Not Given Levothyroxine Sodium (Synthroid) 37.5 mcg PO DAILY@0630 [facility] Last Admin: 08/10/16 06:33 Dose: 37.5 mcg Lorazepam (Ativan) 0.5 mg PO Q8 [facility] Last Admin: 08/10/16 06:16 Dose: 0.5 mg Lorazepam (Ativan) 1 mg IM Q6H PRN PRN Reason: Agitation Last Admin: 08/10/16 00:08 Dose: 1 mg Megestrol Acetate (Megace) 40 mg PO DAILY [facility] Last Admin: 08/10/16 09:30 Dose: 40 mg Metformin HCl (Glucophage) 1,000 mg PO BID [facility] Last Admin: 08/10/16 09:30 Dose: 1,000 mg Mirtazapine (Remeron) 7.5 mg PO [facility] Last Admin: 08/09/16 21:58 Dose: 7.5 mg Pantoprazole Sodium (Protonix Ec Tab) 40 mg PO DAILY [facility] Last Admin: 08/10/16 09:29 Dose: 40 mg Quetiapine Fumarate (Seroquel) 50 mg PO HS [facility] Last Admin: 08/09/16 21:58 Dose: 50 mg Quetiapine Fumarate (Seroquel) 50 mg PO DAILY [facility] Last Admin: 08/10/16 09:31 Dose: 50 mg Rosuvastatin Calcium (Crestor) 5 mg PO HS [facility] Last Admin: 08/09/16 21:56 Dose: 5 mg Fluticasone/Salmeterol (Advair Diskus 250/50) 1 puff INH RQ12 [facility] Last Admin: 08/10/16 08:15 Dose: Not Given Tamsulosin HCl (Flomax) 0.4 mg PO DAILY [facility] Last Admin: 08/09/16 10:50 Dose: 0.4 mg Tiotropium [place] (Spiriva) 18 mcg INH RQ24 [facility] Last Admin: 08/10/16 08:16 Dose: Not Given Tramadol HCl (Ultram) 50 mg PO Q6H PRN PRN Reason: back pain Last Admin: 08/10/16 00:09 Dose: 50 mg - Labs Labs: 08/08/16 07:15 08/08/16 07:11 - Additional Findings Additional findings: - Constitutional Appears: No Acute Distress, Cachectic, Chronically Ill - Head Exam Head Exam: ATRAUMATIC - Eye Exam Eye Exam: EOMI - ENT Exam ENT Exam: Mucous Membranes Moist - Respiratory Exam Respiratory Exam: Clear to Ausculation Bilateral, NORMAL BREATHING PATTERN - Cardiovascular Exam Cardiovascular Exam: +S1, +S2 - GI/Abdominal Exam GI & Abdominal Exam: Soft, Normal Bowel Sounds. absent: Tenderness - Extremities Exam Extremities Exam: Normal Inspection - Neurological Exam Neurological Exam: Alert, Awake. 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 08/10: patient receiving the majority of his medications, sometimes refuses. 08/07: patient refused seroquel last night 08/06: Patient is accepting some medications, but still refusing others 08/05: Patient seen by psychiatry, Dr. Bajwa, help appreciated. Haldol IV: Haldol 2mg IM Q6 PRN 08/04: Re-consult psych for possible medication adjustments, as patient is refusing most PO medications including Haldol. 08/03: All meds per Psychiatry Psych consult - Dr. Galicia - f/u recs Continue Ativan 1mg IVP Q4H PRN agiation Haldol 2mg IM Q6 PRN, agitation Haldol 2mg PO Q6H PRN, moderate agitation Depression 08/10: patient receiving the majority of his medications, sometimes refuses. 08/06: Patient seen by psychiatry, Dr. Bajwa, help appreciated. 08/03: All meds per Psychiatry 07/30: improving 07/24: Suicidal ideations Psych reconsulted - Dr. Galicia - christiano/u recs 07/23: Pending placement 07/22: Patient is pending placement. 07/21 continue current management, add megace for appetite stimulant. Psych Dr. Bajwa consulted, help appreciated. Continue Remeron and Seroquel. Ativan 1mg IVP q4H PRN for agitation. Chest Pain - Resolved JAREK negative EKG with LBBB as prior EKGs have also shown Cardio consult - Dr. Marinelli - help appreciated ECHO - left ventricular is normal size. there is mild to moderate concentric left ventricular hypertrophy. the systolic function is midly to moderately impaired. septal hypokinesis. mild to moderate aortic regurgitation. mild pulmonary hypertension. (please see full report) Nodular opacity in chest Pulm consult - Dr. Hayden - help appreciated Chest CT - extensive bilateral fine nodular interstitial infiltrate both lower lobes. dense pleural based consolidation right lower lobe. subpleural emphysema. mild centrilobular pulmonary emphysema. left upper lobe nodules. 7mm and 9mm. reccomend f/u noncontrast chest CT in 3 months. Multiple left upper lobe nodular calcifications, likely granulomatous. probable small airways disease posterior right upper lobe. findings are nonspecific and may reflect infection or inflammatory disease. Patient needs to f/u outpatient per Dr. Hayden for nodular opacity in chest + COPD. COPD Pulm consult - Dr. Hayden - help appreciated Advair and Spiriva DM 08/10: Glucose 160. Continue to monitor. RISS, accuchecks. Lantus 10U SC HS, Metformin Hypothyroid Continue synthroid. COPD Duoneb q6. Spiriva. Hx of cardiac disease Continue Eliquis, ASA, Crestor. Prophylactic measure eliquis, Protonix. Social work referral. -Labs ordered MW. All Medical Management per Dr. Solis Disposition: Possible placement at [facility], however patient is refusing to go. Possible guardianship issue as patient is not AAO x3
[2016-08-10] MEDS: Calcium Carbonate 500 mg Chewable Antacid Tab PO SCH ×2 (09:53→18:05)
--- NOTE | 2016-08-10 14:50 | RAD ---
PROCEDURE: Radiographs of the Lumbar Spine. HISTORY: lower back pain COMPARISON: No prior. FINDINGS: BONES: There is an age indeterminate superior endplate compression fracture in the L2 vertebral body. There is diffuse bone demineralization. There is 4 mm retrolisthesis of L2 on L3. DISC SPACES: There is mild multilevel degenerative disc disease with anterior spurring, reduced disc height and multilevel facet arthropathy, worse at L5-S1. OTHER FINDINGS: There are no pathologic soft tissue calcifications. Both sacroiliac joints are normal. IMPRESSION: 1. Age indeterminate acute superior endplate compression fracture in the L2 vertebral body with 4 mm retrolisthesis. 2. Mild multilevel degenerative disc disease, worse at L5-S1.
[2016-08-11] MEDS: Levothyroxine 75 MCG TAB PO SCH (06:09)
[2016-08-11] MEDS: Fluticasone-Salmeterol 250-50mcg Diskus INH SCH (08:00)
[2016-08-11] MEDS: Tiotropium 18 mcg Cap For Inhalation INH SCH (08:00)
[2016-08-11] MEDS: (Novolog) Insulin Aspart, Recombinant 100 u/ml 10 ml vial SC SCH ×5 (08:13→21:39)
[2016-08-11] MEDS: Pantoprazole 40 mg EC Tab PO SCH (10:12)
[2016-08-11] MEDS: Calcium Carbonate 500 mg Chewable Antacid Tab PO SCH ×2 (10:14→21:02)
[2016-08-11] MEDS: guaiFENesin DM 200 mg-20 mg/10 ml UD PO SCH ×3 (10:15→21:01)
--- NOTE | 2016-08-11 14:18 | CP.PCM.PN ---
Subjective - Date & Time of Evaluation Date of Evaluation: 08/11/16 Time of Evaluation: 07:20 - Subjective Subjective: clinically same Objective - Vital Signs/Intake and Output Vital Signs (last 24 hours): Temp Pulse Resp BP Pulse Ox 97.0 F L 88 20 135/80 96 08/11/16 08:14 08/11/16 08:14 08/11/16 08:14 08/11/16 08:14 08/11/16 08:14 Intake and Output: 08/11/16 08/11/16 06:59 18:59 Intake Total 450 Balance 450 - Medications Medications: Current Medications Aspirin (Aspirin Chewable) 81 mg PO DAILY [facility] Last Admin: 08/11/16 10:12 Dose: 81 mg Calcium Carbonate (Tums) 500 mg PO BID [facility] Last Admin: 08/11/16 10:14 Dose: 500 mg Diphenhydramine HCl (Benadryl) 25 mg PO Q6 PRN PRN Reason: Extra Pyramidal Symptoms Last Admin: 08/11/16 02:27 Dose: 25 mg Ferrous Sulfate (Feosol) 325 mg PO DAILY [facility] Last Admin: 08/11/16 10:13 Dose: 325 mg Guaifenesin/Dextromethorphan (Robitussin Dm) 10 ml PO TID [facility] Last Admin: 08/11/16 13:46 Dose: Not Given Haloperidol (Haldol) 2 mg PO Q6 PRN PRN Reason: Moderate Agitation Last Admin: 08/10/16 00:09 Dose: 2 mg Haloperidol Lactate (Haldol) 2 mg IM Q6 PRN PRN Reason: Agitation Last Admin: 08/07/16 09:30 Dose: 2 mg Insulin Aspart (Novolog) 0 unit SC ACHS [facility] PRN Reason: Protocol Last Admin: 08/11/16 14:16 Dose: 2 unit Levothyroxine Sodium (Synthroid) 37.5 mcg PO DAILY@0630 [facility] Last Admin: 08/11/16 06:09 Dose: 37.5 mcg Lorazepam (Ativan) 0.5 mg PO Q8 [facility] Last Admin: 08/11/16 13:45 Dose: Not Given Lorazepam (Ativan) 1 mg IM Q6H PRN PRN Reason: Agitation Last Admin: 08/11/16 02:26 Dose: 1 mg Megestrol Acetate (Megace) 40 mg PO DAILY [facility] Last Admin: 08/11/16 10:14 Dose: 40 mg Metformin HCl (Glucophage) 1,000 mg PO BID [facility] Last Admin: 08/11/16 10:13 Dose: 1,000 mg Mirtazapine (Remeron) 7.5 mg PO HS [facility] Last Admin: 08/10/16 22:00 Dose: 7.5 mg Pantoprazole Sodium (Protonix Ec Tab) 40 mg PO DAILY [facility] Last Admin: 08/11/16 10:12 Dose: 40 mg Quetiapine Fumarate (Seroquel) 50 mg PO HS [facility] Last Admin: 08/10/16 22:01 Dose: 50 mg Quetiapine Fumarate (Seroquel) 50 mg PO DAILY [facility] Last Admin: 08/11/16 10:14 Dose: 50 mg Rosuvastatin Calcium (Crestor) 5 mg PO HS [facility] Last Admin: 08/10/16 22:00 Dose: 5 mg Fluticasone/Salmeterol (Advair Diskus 250/50) 1 puff INH RQ12 [facility] Last Admin: 08/10/16 21:17 Dose: Not Given Tamsulosin HCl (Flomax) 0.4 mg PO DAILY [facility] Last Admin: 08/11/16 10:12 Dose: 0.4 mg Tiotropium [place] (Spiriva) 18 mcg INH RQ24 [facility] Last Admin: 08/10/16 08:16 Dose: Not Given Tramadol HCl (Ultram) 50 mg PO Q6H PRN PRN Reason: back pain Last Admin: 08/11/16 10:13 Dose: 50 mg - Labs Labs: 08/08/16 07:15 08/08/16 07:11 - Constitutional Appears: Well - Head Exam Head Exam: ATRAUMATIC, NORMAL INSPECTION, NORMOCEPHALIC - Eye Exam Eye Exam: EOMI, Normal appearance, PERRL Pupil Exam: NORMAL ACCOMODATION, PERRL - ENT Exam ENT Exam: Mucous Membranes Moist, Normal Exam - Neck Exam Neck Exam: Full ROM, Normal Inspection. absent: Lymphadenopathy - Respiratory Exam Respiratory Exam: Decreased Breath Sounds - Cardiovascular Exam Cardiovascular Exam: +S1, +S2 - GI/Abdominal Exam GI & Abdominal Exam: Soft, Diminished Bowel Sounds - Rectal Exam Rectal Exam: Deferred Assessment and Plan (1) Abnormal CXR (chest x-ray) Status: Acute (2) COPD (chronic obstructive pulmonary disease) Status: Acute (3) COPD exacerbation Status: Acute (4) Cardiac disease Status: Acute (5) Depression Status: Acute (6) Diabetes Status: Acute - Assessment and Plan (Free Text) Plan: neurology consult neurosurgery consult psych on board jovi stovall
[2016-08-11 14:38] LABS: CHLORIDE 104 mmol/L (98-107); SODIUM 137 mmol/L (132-148)
[2016-08-11 14:41] LABS: ALB/GLOB RATIO 0.9 (1.0-2.1); ALKALINE PHOSPHATASE 53 U/L (38-126); AST/SGOT 19 U/L (17-59); BILIRUBIN,TOTAL 0.4 mg/dL (0.2-1.3); BLOOD UREA NITROGEN 23 mg/dL (9-20); CARBON DIOXIDE 22 mmol/L (22-30); GFR AFRICAN-AMERICAN > 60; GLUCOSE,RANDOM 126 mg/dL (75-110); PHOSPHOROUS 3.7 mg/dL (2.5-4.5); TOTAL PROTEIN 6.9 g/dL (6.3-8.3)
[2016-08-11 14:42] LABS: ALT/SGPT 19 U/L (21-72); CALCIUM 8.8 mg/dl (8.6-10.4); MAGNESIUM 1.8 mg/dL (1.6-2.3)
--- NOTE | 2016-08-11 18:07 | CP.PCM.PN ---
Subjective - Date & Time of Evaluation Date of Evaluation: 08/11/16 Time of Evaluation: 08:15 - Subjective Subjective: PGY2 Medicine Note Dr Solis's service Patient seen and examined. Patient has been receiving his haldol regularly, and today is the first time in many days where he is AAOx3. We had a discussion about his health and recovery, and he is agreeable for placement at [facility]. Today, is the first day that patient cooperated with ROS, and he is complaining of discomfort at his R hip / back since falling roughly 2 weeks ago. Objective - Vital Signs/Intake and Output Vital Signs (last 24 hours): Temp Pulse Resp BP Pulse Ox 97.0 F L 88 20 135/80 96 08/11/16 08:14 08/11/16 08:14 08/11/16 08:14 08/11/16 08:14 08/11/16 08:14 Intake and Output: 08/11/16 08/11/16 06:59 18:59 Intake Total 450 Balance 450 - Medications Medications: Current Medications Aspirin (Aspirin Chewable) 81 mg PO DAILY [facility] Last Admin: 08/11/16 10:12 Dose: 81 mg Calcium Carbonate (Tums) 500 mg PO BID [facility] Last Admin: 08/11/16 10:14 Dose: 500 mg Diphenhydramine HCl (Benadryl) 25 mg PO Q6 PRN PRN Reason: Extra Pyramidal Symptoms Last Admin: 08/11/16 02:27 Dose: 25 mg Ferrous Sulfate (Feosol) 325 mg PO DAILY [facility] Last Admin: 08/11/16 10:13 Dose: 325 mg Guaifenesin/Dextromethorphan (Robitussin Dm) 10 ml PO TID [facility] Last Admin: 08/11/16 13:46 Dose: Not Given Haloperidol (Haldol) 2 mg PO Q6 PRN PRN Reason: Moderate Agitation Last Admin: 08/10/16 00:09 Dose: 2 mg Haloperidol Lactate (Haldol) 2 mg IM Q6 PRN PRN Reason: Agitation Last Admin: 08/07/16 09:30 Dose: 2 mg Insulin Aspart (Novolog) 0 unit SC ACHS [facility] PRN Reason: Protocol Last Admin: 08/11/16 14:16 Dose: 2 unit Levothyroxine Sodium (Synthroid) 37.5 mcg PO DAILY@0630 [facility] Last Admin: 08/11/16 06:09 Dose: 37.5 mcg Lorazepam (Ativan) 0.5 mg PO Q8 [facility] Last Admin: 08/11/16 13:45 Dose: Not Given Lorazepam (Ativan) 1 mg IM Q6H PRN PRN Reason: Agitation Last Admin: 08/11/16 02:26 Dose: 1 mg Megestrol Acetate (Megace) 40 mg PO DAILY [facility] Last Admin: 08/11/16 10:14 Dose: 40 mg Metformin HCl (Glucophage) 1,000 mg PO BID [facility] Last Admin: 08/11/16 10:13 Dose: 1,000 mg Mirtazapine (Remeron) 7.5 mg PO HS [facility] Last Admin: 08/10/16 22:00 Dose: 7.5 mg Pantoprazole Sodium (Protonix Ec Tab) 40 mg PO DAILY [facility] Last Admin: 08/11/16 10:12 Dose: 40 mg Quetiapine Fumarate (Seroquel) 50 mg PO HS [facility] Last Admin: 08/10/16 22:01 Dose: 50 mg Quetiapine Fumarate (Seroquel) 50 mg PO DAILY [facility] Last Admin: 08/11/16 10:14 Dose: 50 mg Rosuvastatin Calcium (Crestor) 5 mg PO HS [facility] Last Admin: 08/10/16 22:00 Dose: 5 mg Fluticasone/Salmeterol (Advair Diskus 250/50) 1 puff INH RQ12 [facility] Last Admin: 08/10/16 21:17 Dose: Not Given Tamsulosin HCl (Flomax) 0.4 mg PO DAILY [facility] Last Admin: 08/11/16 10:12 Dose: 0.4 mg Tiotropium [place] (Spiriva) 18 mcg INH RQ24 [facility] Last Admin: 08/10/16 08:16 Dose: Not Given Tramadol HCl (Ultram) 50 mg PO Q6H PRN PRN Reason: back pain Last Admin: 08/11/16 10:13 Dose: 50 mg - Labs Labs: 08/08/16 07:15 08/11/16 14:06 - Additional Findings Additional findings: - Constitutional Appears: No Acute Distress, Cachectic, Chronically Ill - Head Exam Head Exam: ATRAUMATIC - Eye Exam Eye Exam: EOMI - ENT Exam ENT Exam: Mucous Membranes Moist - Respiratory Exam Respiratory Exam: Clear to Ausculation Bilateral, NORMAL BREATHING PATTERN - Cardiovascular Exam Cardiovascular Exam: +S1, +S2 - GI/Abdominal Exam GI & Abdominal Exam: Soft, Normal Bowel Sounds. absent: Tenderness - Extremities Exam Extremities Exam: Normal Inspection - lumbar desizing machine back tender to palpation (mild, non-specific) - Neurological Exam Neurological Exam: Alert, Awake, Oriented x3 - Skin Skin Exam: Warm Assessment and Plan - Assessment and Plan (Free Text) Assessment: Lumbar back pain 08/11: Lumbar XRAY - 1. Age indeterminate acute superior endplate compression fracture in the L2 vertebral body with 4 mm retrolisthesis. 2. Mild multilevel degenerative disc disease, worse at L5-S1. see full report. -Consult Ortho, help appreciated. 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 08/11: patient now receiving Haldol IM for several days - first day he was AAOx3. 08/10: patient receiving the majority of his medications, sometimes refuses. 08/07: patient refused seroquel last night 08/06: Patient is accepting some medications, but still refusing others 08/05: Patient seen by psychiatry, Dr. Bajwa, help appreciated. Haldol IV: Haldol 2mg IM Q6 PRN 08/04: Re-consult psych for possible medication adjustments, as patient is refusing most PO medications including Haldol. 08/03: All meds per Psychiatry Psych consult - Dr. Galicia - f/u recs Continue Ativan 1mg IVP Q4H PRN agiation Haldol 2mg IM Q6 PRN, agitation Haldol 2mg PO Q6H PRN, moderate agitation Depression 08/10-08/11: patient receiving the majority of his medications, sometimes refuses. 08/06: Patient seen by psychiatry, Dr. Bajwa, help appreciated. 08/03: All meds per Psychiatry 07/30: improving 07/24: Suicidal ideations Psych reconsulted - Dr. Frida alvarado/u recs 07/23: Pending placement 07/22: Patient is pending placement. 07/21 continue current management, add megace for appetite stimulant. Psych Dr. Bajwa consulted, help appreciated. Continue Remeron and Seroquel. Ativan 1mg IVP q4H PRN for agitation. Chest Pain - Resolved JAREK negative EKG with LBBB as prior EKGs have also shown Cardio consult - Dr. Marinelli - help appreciated ECHO - left ventricular is normal size. there is mild to moderate concentric left ventricular hypertrophy. the systolic function is midly to moderately impaired. septal hypokinesis. mild to moderate aortic regurgitation. mild pulmonary hypertension. (please see full report) Nodular opacity in chest Pulm consult - Dr. Hayden - help appreciated Chest CT - extensive bilateral fine nodular interstitial infiltrate both lower lobes. dense pleural based consolidation right lower lobe. subpleural emphysema. mild centrilobular pulmonary emphysema. left upper lobe nodules. 7mm and 9mm. reccomend f/u noncontrast chest CT in 3 months. Multiple left upper lobe nodular calcifications, likely granulomatous. probable small airways disease posterior right upper lobe. findings are nonspecific and may reflect infection or inflammatory disease. Patient needs to f/u outpatient per Dr. Hayden for nodular opacity in chest + COPD. COPD Pulm consult - Dr. Hayden - help appreciated Advair and Spiriva DM 08/10: Glucose 160. Continue to monitor. RISS, accuchecks. Lantus 10U SC HS, Metformin Hypothyroid Continue synthroid. COPD Duoneb q6. Spiriva. Hx of cardiac disease Continue Eliquis, ASA, Crestor. Prophylactic measure eliquis, Protonix. Social work referral. -Labs ordered MW. -PT rec -> [facility] All Medical Management per Dr. Solis Disposition: Possible placement at [facility] now that pt is AAOx3. Pending workup for newly revealed L2 vertebral body fracture.
[2016-08-11 18:31] LABS: BASO # 0.1 K/uL (0.0-0.2); BASO % 0.8 % (0.0-2.0); EOS # 0.1 K/uL (0.0-0.7); EOS % 0.7 % (0.0-4.0); HEMATOCRIT 35.3 % (35.0-51.0); LYMPH # 2.1 K/uL (1.0-4.3); LYMPH % 22.1 % (20.0-40.0); MEAN CELL VOLUME 84.6 fL (80.0-94.0); MEAN CORPUSCULAR HEMOGLOBIN 27.2 pg (27.0-31.0); MEAN CORPUSCULAR HGB CONC 32.1 g/dL (33.0-37.0); MEAN PLATELET VOLUME 8.8 fL (7.2-11.7); MONO # 0.8 K/uL (0.0-0.8); MONO % 8.7 % (0.0-10.0); RED CELL DISTRIBUTION WIDTH 18.9 % (11.5-14.5); WHITE BLOOD COUNT 9.6 K/uL (4.8-10.8)
[2016-08-12] MEDS: Levothyroxine 75 MCG TAB PO SCH (05:55)
--- NOTE | 2016-08-12 07:50 | CP.PCM.PN ---
<Praveen Camargo - Last Filed: 08/12/16 15:42> Subjective - Date & Time of Evaluation Date of Evaluation: 08/12/16 Time of Evaluation: 07:40 - Subjective Subjective: PGY2 Medicine Note Dr Solis's service Patient seen and examined. Patient appears more agitated today and was highly uncooperative, AAOx2. Yesterday he was AAOx3 and we had a discussion about his health and recovery, and he is agreeable for placement at [facility]. Working up recent c/o lumbar pain. ROS unobtainable today. Objective - Vital Signs/Intake and Output Vital Signs (last 24 hours): Temp Pulse Resp BP Pulse Ox 97.0 F L 88 20 135/80 96 08/11/16 08:14 08/11/16 08:14 08/11/16 08:14 08/11/16 08:14 08/11/16 08:14 Intake and Output: 08/12/16 08/12/16 06:59 18:59 Intake Total 350 Balance 350 - Medications Medications: Current Medications Aspirin (Aspirin Chewable) 81 mg PO DAILY [facility] Last Admin: 08/11/16 10:12 Dose: 81 mg Calcium Carbonate (Tums) 500 mg PO BID [facility] Last Admin: 08/11/16 21:02 Dose: Not Given Diphenhydramine HCl (Benadryl) 25 mg PO Q6 PRN PRN Reason: Extra Pyramidal Symptoms Last Admin: 08/11/16 02:27 Dose: 25 mg Ferrous Sulfate (Feosol) 325 mg PO DAILY [facility] Last Admin: 08/11/16 10:13 Dose: 325 mg Guaifenesin/Dextromethorphan (Robitussin Dm) 10 ml PO TID [facility] Last Admin: 08/11/16 21:01 Dose: Not Given Haloperidol (Haldol) 2 mg PO Q6 PRN PRN Reason: Moderate Agitation Last Admin: 08/12/16 02:30 Dose: 2 mg Haloperidol Lactate (Haldol) 2 mg IM Q6 PRN PRN Reason: Agitation Last Admin: 08/12/16 02:40 Dose: 2 mg Insulin Aspart (Novolog) 0 unit SC ACHS [facility] PRN Reason: Protocol Last Admin: 08/11/16 21:39 Dose: Not Given Levothyroxine Sodium (Synthroid) 37.5 mcg PO DAILY@0630 [facility] Last Admin: 08/12/16 05:55 Dose: 37.5 mcg Lorazepam (Ativan) 0.5 mg PO Q8 [facility] Last Admin: 08/12/16 05:55 Dose: 0.5 mg Lorazepam (Ativan) 1 mg IM Q6H PRN PRN Reason: Agitation Last Admin: 08/12/16 02:47 Dose: 1 mg Megestrol Acetate (Megace) 40 mg PO DAILY [facility] Last Admin: 08/11/16 10:14 Dose: 40 mg Metformin HCl (Glucophage) 1,000 mg PO BID [facility] Last Admin: 08/11/16 18:11 Dose: Not Given Mirtazapine (Remeron) 7.5 mg PO HS [facility] Last Admin: 08/11/16 22:12 Dose: Not Given Pantoprazole Sodium (Protonix Ec Tab) 40 mg PO DAILY [facility] Last Admin: 08/11/16 10:12 Dose: 40 mg Quetiapine Fumarate (Seroquel) 50 mg PO HS [facility] Last Admin: 08/11/16 22:12 Dose: Not Given Quetiapine Fumarate (Seroquel) 50 mg PO DAILY [facility] Last Admin: 08/11/16 10:14 Dose: 50 mg Rosuvastatin Calcium (Crestor) 5 mg PO HS [facility] Last Admin: 08/11/16 22:12 Dose: Not Given Fluticasone/Salmeterol (Advair Diskus 250/50) 1 puff INH RQ12 [facility] Last Admin: 08/10/16 21:17 Dose: Not Given Tamsulosin HCl (Flomax) 0.4 mg PO DAILY [facility] Last Admin: 08/11/16 10:12 Dose: 0.4 mg Tiotropium [place] (Spiriva) 18 mcg INH RQ24 [facility] Last Admin: 08/10/16 08:16 Dose: Not Given Tramadol HCl (Ultram) 50 mg PO Q6H PRN PRN Reason: back pain Last Admin: 08/12/16 02:36 Dose: 50 mg - Labs Labs: 08/10/16 18:11 08/11/16 14:06 - Additional Findings Additional findings: - Constitutional Appears: No Acute Distress, Cachectic, Chronically Ill - Head Exam Head Exam: ATRAUMATIC - Eye Exam Eye Exam: EOMI - ENT Exam ENT Exam: Mucous Membranes Moist - Respiratory Exam Respiratory Exam: Clear to Ausculation Bilateral, NORMAL BREATHING PATTERN - Cardiovascular Exam Cardiovascular Exam: +S1, +S2 - GI/Abdominal Exam GI & Abdominal Exam: Soft, Normal Bowel Sounds. absent: Tenderness - Extremities Exam Extremities Exam: Normal Inspection - lumbar chargeback specialist to palpation (mild, non-specific) - Neurological Exam Neurological Exam: Alert, Awake, Oriented x2 - Skin Skin Exam: Warm, Dry, Intact Assessment and Plan - Assessment and Plan (Free Text) Assessment: Lumbar back pain 08/12: Ortho PA saw patient today - CT confirms acute appearing L2 compression fracture, no retropulsion seen per report. Ill defined soft tissue density seen , ? edema. Would recommend attempt MRI (unsure if patient will tolerate and cooperate) for further visualization. Neurosurgery Consulted, Dr. Rose. 08/11: Lumbar XRAY - 1. Age indeterminate acute superior endplate compression fracture in the L2 vertebral body with 4 mm retrolisthesis. 2. Mild multilevel degenerative disc disease, worse at L5-S1. see full report. -Consult Ortho, help appreciated - Dr. 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 08/11: patient now receiving Haldol IM for several days - first day he was AAOx3. 08/10: patient receiving the majority of his medications, sometimes refuses. 08/07: patient refused seroquel last night 08/06: Patient is accepting some medications, but still refusing others 08/05: Patient seen by psychiatry, Dr. Bajwa, help appreciated. Haldol IV: Haldol 2mg IM Q6 PRN 08/04: Re-consult psych for possible medication adjustments, as patient is refusing most PO medications including Haldol. 08/03: All meds per Psychiatry Psych consult - Dr. Galicia - f/u recs Continue Ativan 1mg IVP Q4H PRN agiation Haldol 2mg IM Q6 PRN, agitation Haldol 2mg PO Q6H PRN, moderate agitation Depression 08/10-08/11: patient receiving the majority of his medications, sometimes refuses. 08/06: Patient seen by psychiatry, Dr. Bajwa, help appreciated. 08/03: All meds per Psychiatry 07/30: improving 07/24: Suicidal ideations Psych reconsulted - Dr. Frida Michael f/u recs 6/8: Pending placement 07/22: Patient is pending placement. 07/21 continue current management, add megace for appetite stimulant. Psych Dr. Bajwa consulted, help appreciated. Continue Remeron and Seroquel. Ativan 1mg IVP q4H PRN for agitation. Chest Pain - Resolved JAREK negative EKG with LBBB as prior EKGs have also shown Cardio consult - Dr. Marinelli - help appreciated ECHO - left ventricular is normal size. there is mild to moderate concentric left ventricular hypertrophy. the systolic function is midly to moderately impaired. septal hypokinesis. mild to moderate aortic regurgitation. mild pulmonary hypertension. (please see full report) Nodular opacity in chest Pulm consult - Dr. Hayden - help appreciated Chest CT - extensive bilateral fine nodular interstitial infiltrate both lower lobes. dense pleural based consolidation right lower lobe. subpleural emphysema. mild centrilobular pulmonary emphysema. left upper lobe nodules. 7mm and 9mm. reccomend f/u noncontrast chest CT in 3 months. Multiple left upper lobe nodular calcifications, likely granulomatous. probable small airways disease posterior right upper lobe. findings are nonspecific and may reflect infection or inflammatory disease. Patient needs to f/u outpatient per Dr. Hayden for nodular opacity in chest + COPD. COPD Pulm consult - Dr. Hayden - help appreciated Advair and Spiriva DM 08/10-08/12: WNL, stable. Continue to monitor. RISS, accuchecks. Lantus 10U SC HS, Metformin Hypothyroid Continue synthroid. COPD Duoneb q6. Spiriva. Hx of cardiac disease Continue Eliquis, ASA, Crestor. Prophylactic measure eliquis, Protonix. Social work referral. -Labs ordered [facility]. -PT rec -> [facility] All Medical Management per Dr. Solis Disposition: Possible placement at [facility] now that pt is AAOx3. Pending workup for newly revealed L2 vertebral body fracture. <Perla Solis - Last Filed: 08/12/16 20:04> Objective - Vital Signs/Intake and Output Vital Signs (last 24 hours): Temp Pulse Resp BP Pulse Ox 97.7 F 74 20 118/64 96 08/12/16 15:00 08/12/16 15:00 08/12/16 15:00 08/12/16 15:00 08/12/16 15:00 Intake and Output: 08/12/16 08/13/16 18:59 06:59 Intake Total 240 Balance 240 - Medications Medications: Current Medications Aspirin (Aspirin Chewable) 81 mg PO DAILY [facility] Last Admin: 08/12/16 10:54 Dose: 81 mg Calcium Carbonate (Tums) 500 mg PO BID [facility] Last Admin: 08/12/16 17:11 Dose: Not Given Diphenhydramine HCl (Benadryl) 25 mg PO Q6 PRN PRN Reason: Extra Pyramidal Symptoms Last Admin: 08/11/16 02:27 Dose: 25 mg Ferrous Sulfate (Feosol) 325 mg PO DAILY [facility] Last Admin: 08/12/16 10:55 Dose: 325 mg Guaifenesin/Dextromethorphan (Robitussin Dm) 10 ml PO TID [facility] Last Admin: 08/12/16 17:13 Dose: 10 ml Haloperidol (Haldol) 2 mg PO Q6 PRN PRN Reason: Moderate Agitation Last Admin: 08/12/16 02:30 Dose: 2 mg Haloperidol Lactate (Haldol) 2 mg IM Q6 PRN PRN Reason: Agitation Last Admin: 08/12/16 02:40 Dose: 2 mg Insulin Aspart (Novolog) 0 unit SC ACHS [facility] PRN Reason: Protocol Last Admin: 08/12/16 16:55 Dose: Not Given Levothyroxine Sodium (Synthroid) 37.5 mcg PO DAILY@0630 [facility] Last Admin: 08/12/16 05:55 Dose: 37.5 mcg Lorazepam (Ativan) 0.5 mg PO Q8 [facility] Last Admin: 08/12/16 14:01 Dose: 0.5 mg Lorazepam (Ativan) 1 mg IM Q6H PRN PRN Reason: Agitation Last Admin: 08/12/16 02:47 Dose: 1 mg Megestrol Acetate (Megace) 40 mg PO DAILY [facility] Last Admin: 08/12/16 10:54 Dose: 40 mg Metformin HCl (Glucophage) 1,000 mg PO BID [facility] Last Admin: 08/12/16 17:13 Dose: 1,000 mg Mirtazapine (Remeron) 7.5 mg PO HS [facility] Last Admin: 08/11/16 22:12 Dose: Not Given Pantoprazole Sodium (Protonix Ec Tab) 40 mg PO DAILY [facility] Last Admin: 08/12/16 10:55 Dose: 40 mg Quetiapine Fumarate (Seroquel) 50 mg PO HS [facility] Last Admin: 08/11/16 22:12 Dose: Not Given Quetiapine Fumarate (Seroquel) 50 mg PO DAILY [facility] Last Admin: 08/12/16 10:55 Dose: 50 mg Rosuvastatin Calcium (Crestor) 5 mg PO HS [facility] Last Admin: 08/11/16 22:12 Dose: Not Given Fluticasone/Salmeterol (Advair Diskus 250/50) 1 puff INH RQ12 [facility] Last Admin: 08/12/16 11:50 Dose: Not Given Tamsulosin HCl (Flomax) 0.4 mg PO DAILY [facility] Last Admin: 08/12/16 10:55 Dose: 0.4 mg Tiotropium [place] (Spiriva) 18 mcg INH RQ24 [facility] Last Admin: 08/12/16 11:50 Dose: Not Given Tramadol HCl (Ultram) 50 mg PO Q6H PRN PRN Reason: back pain Last Admin: 08/12/16 19:56 Dose: 50 mg - Labs Labs: 08/12/16 14:10 08/12/16 14:10 Assessment and Plan (1) Abnormal CXR (chest x-ray) Status: Acute (2) COPD (chronic obstructive pulmonary disease) Status: Acute (3) COPD exacerbation Status: Acute (4) Cardiac disease Status: Acute (5) Depression Status: Acute (6) Diabetes Status: Acute Attending/Attestation - Attestation I have personally seen and examined this patient.: Yes I have fully participated in the care of the patient.: Yes I have reviewed all pertinent clinical information, including history, physical exam and plan: Yes Notes (Text): 08/12/16 20:04 Patient has a fracture on the lumbosacral spine neurology neurosurgery contacted continue same patient was denied by the rehab
[2016-08-12] MEDS: (Novolog) Insulin Aspart, Recombinant 100 u/ml 10 ml vial SC SCH ×4 (07:54→22:03)
--- NOTE | 2016-08-12 09:11 | CP.PCM.CON ---
History of Present Illness - History of Present Illness History of Present Illness: Orthopedic consultation requested Dr. Villareal for LBP 81M reportedly complaining of LBP yesterday after fall 2 weeks ago per medical team. Currently, patient uncooperative. Patient repeatedly pulls blanket over his head, refuses to answer any questions. Unable to obtain any history or ROS from patient at this time. Review of Systems - Review of Systems Systems not reviewed;Unavailable: Uncooperative Past Patient History - Past Medical History & Family History Past Medical History?: Yes Past Family History: Reviewed and not pertinent - Past Social History Smoking Status: Unknown If Ever Smoked - CARDIAC Hx Congestive Heart Failure: Yes Hx Hypertension: Yes - PULMONARY Hx Chronic Obstructive Pulmonary Disease (COPD): Yes - NEUROLOGICAL Hx Alzheimer's Disease: Yes Hx Dementia: Yes - ENDOCRINE/METABOLIC Hx Diabetes Mellitus Type 2: Yes Hx Hypothyroidism: Yes - MUSCULOSKELETAL/RHEUMATOLOGICAL Hx Arthritis: Yes - PSYCHIATRIC Hx Depression: Yes Hx Substance Use: No - SURGICAL HISTORY Hx Appendectomy: Yes - ANESTHESIA Hx Anesthesia: Yes Hx Anesthesia Reactions: No Hx Malignant Hyperthermia: No Has any member of the family had a problem w/ anesthesia?: No Meds Allergies/Adverse Reactions: Allergies Allergy/AdvReac Type Severity Reaction Status Date / Time No Known Allergies Allergy Unverified 07/15/16 13:18 - Medications Medications: Current Medications Aspirin (Aspirin Chewable) 81 mg PO DAILY [facility] Last Admin: 08/11/16 10:12 Dose: 81 mg Calcium Carbonate (Tums) 500 mg PO BID [facility] Last Admin: 08/11/16 21:02 Dose: Not Given Diphenhydramine HCl (Benadryl) 25 mg PO Q6 PRN PRN Reason: Extra Pyramidal Symptoms Last Admin: 08/11/16 02:27 Dose: 25 mg Ferrous Sulfate (Feosol) 325 mg PO DAILY [facility] Last Admin: 08/11/16 10:13 Dose: 325 mg Guaifenesin/Dextromethorphan (Robitussin Dm) 10 ml PO TID [facility] Last Admin: 08/11/16 21:01 Dose: Not Given Haloperidol (Haldol) 2 mg PO Q6 PRN PRN Reason: Moderate Agitation Last Admin: 08/12/16 02:30 Dose: 2 mg Haloperidol Lactate (Haldol) 2 mg IM Q6 PRN PRN Reason: Agitation Last Admin: 08/12/16 02:40 Dose: 2 mg Insulin Aspart (Novolog) 0 unit SC ACHS [facility] PRN Reason: Protocol Last Admin: 08/12/16 07:54 Dose: Not Given Levothyroxine Sodium (Synthroid) 37.5 mcg PO DAILY@0630 [facility] Last Admin: 08/12/16 05:55 Dose: 37.5 mcg Lorazepam (Ativan) 0.5 mg PO Q8 [facility] Last Admin: 08/12/16 05:55 Dose: 0.5 mg Lorazepam (Ativan) 1 mg IM Q6H PRN PRN Reason: Agitation Last Admin: 08/12/16 02:47 Dose: 1 mg Megestrol Acetate (Megace) 40 mg PO DAILY [facility] Last Admin: 08/11/16 10:14 Dose: 40 mg Metformin HCl (Glucophage) 1,000 mg PO BID [facility] Last Admin: 08/11/16 18:11 Dose: Not Given Mirtazapine (Remeron) 7.5 mg PO HS [facility] Last Admin: 08/11/16 22:12 Dose: Not Given Pantoprazole Sodium (Protonix Ec Tab) 40 mg PO DAILY [facility] Last Admin: 08/11/16 10:12 Dose: 40 mg Quetiapine Fumarate (Seroquel) 50 mg PO HS [facility] Last Admin: 08/11/16 22:12 Dose: Not Given Quetiapine Fumarate (Seroquel) 50 mg PO DAILY [facility] Last Admin: 08/11/16 10:14 Dose: 50 mg Rosuvastatin Calcium (Crestor) 5 mg PO HS [facility] Last Admin: 08/11/16 22:12 Dose: Not Given Fluticasone/Salmeterol (Advair Diskus 250/50) 1 puff INH RQ12 [facility] Last Admin: 08/10/16 21:17 Dose: Not Given Tamsulosin HCl (Flomax) 0.4 mg PO DAILY [facility] Last Admin: 08/11/16 10:12 Dose: 0.4 mg Tiotropium [place] (Spiriva) 18 mcg INH RQ24 [facility] Last Admin: 08/10/16 08:16 Dose: Not Given Tramadol HCl (Ultram) 50 mg PO Q6H PRN PRN Reason: back pain Last Admin: 08/12/16 02:36 Dose: 50 mg Physical Exam - Constitutional Appears: No Acute Distress, Cachectic - Head Exam Head Exam: ATRAUMATIC, NORMAL INSPECTION - Respiratory Exam Respiratory Exam: NORMAL BREATHING PATTERN - Back Exam Additional comments: patient in bed, side lying, with hips/knees flexed allows palpation of back, no obvious to spinous processes and paraspinals of thoracic and lumbar spine, no swelling/discoloration noted. Refused to cooperate with exam. - Neurological Exam Additional comments: unable to assess, patient does not follow commands - Psychiatric Exam Additional comments: uncooperative - Skin Skin Exam: Dry, Intact, Normal Color, Warm Results - Vital Signs Recent Vital Signs: Last Vital Signs Temp 97.9 F 08/12/16 08:47 Pulse 76 08/12/16 08:47 Resp 20 08/12/16 08:47 BP 108/61 08/12/16 08:47 Pulse Ox 96 08/12/16 08:47 - Labs Result Diagrams: 08/10/16 18:11 08/11/16 14:06 Labs: Laboratory Results - last 24 hr 08/10/16 08/11/16 08/11/16 18:11 11:32 14:06 WBC 9.6 RBC 4.17 L Hgb 11.3 L Hct 35.3 MCV 84.6 MCH 27.2 MCHC 32.1 L RDW 18.9 H Plt Count 312 MPV 8.8 Neut % (Auto) 67.7 Lymph % (Auto) 22.1 Gem % (Auto) 8.7 Eos % (Auto) 0.7 Baso % (Auto) 0.8 Neut # 6.5 Lymph # 2.1 Gem # 0.8 Eos # 0.1 Baso # 0.1 Sodium 137 Potassium 4.0 Chloride 104 Carbon Dioxide 22 Anion Gap 15 BUN 23 H Creatinine 0.7 L Est GFR ( Amer) > 60 Est GFR (Non-Af Amer) > 60 POC Glucose (mg/dL) 246 H Random Glucose 126 H Calcium 8.8 Phosphorus 3.7 Magnesium 1.8 Total Bilirubin 0.4 AST 19 ALT 19 L D Alkaline Phosphatase 53 Total Protein 6.9 Albumin 3.3 L Globulin 3.6 Albumin/Globulin Ratio 0.9 L 08/11/16 08/11/16 08/12/16 16:51 21:19 07:31 WBC RBC Hgb Hct MCV MCH MCHC RDW Plt Count MPV Neut % (Auto) Lymph % (Auto) Gem % (Auto) Eos % (Auto) Baso % (Auto) Neut # Lymph # Gem # Eos # Baso # Sodium Potassium Chloride Carbon Dioxide Anion Gap BUN Creatinine Est GFR ( Amer) Est GFR (Non-Af Amer) POC Glucose (mg/dL) 89 172 H 128 H Random Glucose Calcium Phosphorus Magnesium Total Bilirubin AST ALT Alkaline Phosphatase Total Protein Albumin Globulin Albumin/Globulin Ratio Assessment & Plan (1) Compression fracture of L2 Assessment and Plan: Unclear chronicity, patient with reported fall 2 weeks ago per medical team and complained of back pain yesterday Prior imaging reviewed, there is abd CT 06/12/2016 that demonstrates compression fracture of superior endplate of L3, no fracture of L2 and no spondylolisthesis noted on that imaging. Current lumbar spine plain films reviewed, noted old L3 compression fracture, and ? acute L2 compression fracture MRI ordered lumbar spine, unsure if patient will be able to cooperate and tolerate examination. Consider CT scan if unable to verify MRI screening questionnaire or if patient will not tolerate during of examination. Recommend neurosurgery consultation for spine as any surgical intervention is outside scope of practice for Dr. Villareal will f/u imaging d/w Dr. Villareal, agrees with above Status: Acute Radiology Interpretation - Stripping Machine Operator Stripping Machine Operator:: Radiologist - Radiology Interpretation #2 Interpretation: Patient Name / ID : SHERI CLAYTON / [id number] Exam Date : 08/10/2016 08:34:18 ( Approved ) Study Comment : Sex / Age : M / 81Y Creator : Sandy Martin MD Dictator : Sandy Martin MD Tree Driller : Dump Worker : Sandy Martin MD Approver2 : Report Date : 08/10/2016 14:44:58 My Comment : PROCEDURE: Radiographs of the Lumbar Spine. HISTORY: lower back pain COMPARISON: No prior. FINDINGS: BONES: There is an age indeterminate superior endplate compression fracture in the L2 vertebral body. There is diffuse bone demineralization. There is 4 mm retrolisthesis of L2 on L3. DISC SPACES: There is mild multilevel degenerative disc disease with anterior spurring, reduced disc height and multilevel facet arthropathy, worse at L5-S1. OTHER FINDINGS: There are no pathologic soft tissue calcifications. Both sacroiliac joints are normal. IMPRESSION: 1. Age indeterminate acute superior endplate compression fracture in the L2 vertebral body with 4 mm retrolisthesis. 2. Mild multilevel degenerative disc disease, worse at L5-S1.
[2016-08-12] MEDS: Pantoprazole 40 mg EC Tab PO SCH (10:55)
[2016-08-12] MEDS: guaiFENesin DM 200 mg-20 mg/10 ml UD PO SCH ×3 (10:55→17:13)
[2016-08-12] MEDS: Calcium Carbonate 500 mg Chewable Antacid Tab PO SCH ×2 (11:05→17:11)
[2016-08-12] MEDS: Fluticasone-Salmeterol 250-50mcg Diskus INH SCH (11:50)
[2016-08-12] MEDS: Tiotropium 18 mcg Cap For Inhalation INH SCH (11:50)
--- NOTE | 2016-08-12 11:52 | CP.PCM.PN ---
Subjective - Date & Time of Evaluation Date of Evaluation: 08/12/16 Time of Evaluation: 07:20 - Subjective Subjective: clinically same Objective - Vital Signs/Intake and Output Vital Signs (last 24 hours): Temp Pulse Resp BP Pulse Ox 97.9 F 76 20 108/61 96 08/12/16 08:47 08/12/16 08:47 08/12/16 08:47 08/12/16 08:47 08/12/16 08:47 Intake and Output: 08/12/16 08/12/16 06:59 18:59 Intake Total 350 Balance 350 - Medications Medications: Current Medications Aspirin (Aspirin Chewable) 81 mg PO DAILY [facility] Last Admin: 08/12/16 10:54 Dose: 81 mg Calcium Carbonate (Tums) 500 mg PO BID [facility] Last Admin: 08/12/16 11:05 Dose: Not Given Diphenhydramine HCl (Benadryl) 25 mg PO Q6 PRN PRN Reason: Extra Pyramidal Symptoms Last Admin: 08/11/16 02:27 Dose: 25 mg Ferrous Sulfate (Feosol) 325 mg PO DAILY [facility] Last Admin: 08/12/16 10:55 Dose: 325 mg Guaifenesin/Dextromethorphan (Robitussin Dm) 10 ml PO TID [facility] Last Admin: 08/12/16 10:55 Dose: 10 ml Haloperidol (Haldol) 2 mg PO Q6 PRN PRN Reason: Moderate Agitation Last Admin: 08/12/16 02:30 Dose: 2 mg Haloperidol Lactate (Haldol) 2 mg IM Q6 PRN PRN Reason: Agitation Last Admin: 08/12/16 02:40 Dose: 2 mg Insulin Aspart (Novolog) 0 unit SC ACHS [facility] PRN Reason: Protocol Last Admin: 08/12/16 07:54 Dose: Not Given Levothyroxine Sodium (Synthroid) 37.5 mcg PO DAILY@0630 [facility] Last Admin: 08/12/16 05:55 Dose: 37.5 mcg Lorazepam (Ativan) 0.5 mg PO Q8 [facility] Last Admin: 08/12/16 05:55 Dose: 0.5 mg Lorazepam (Ativan) 1 mg IM Q6H PRN PRN Reason: Agitation Last Admin: 08/12/16 02:47 Dose: 1 mg Megestrol Acetate (Megace) 40 mg PO DAILY [facility] Last Admin: 08/12/16 10:54 Dose: 40 mg Metformin HCl (Glucophage) 1,000 mg PO BID [facility] Last Admin: 08/12/16 10:59 Dose: 1,000 mg Mirtazapine (Remeron) 7.5 mg PO [facility] Last Admin: 08/11/16 22:12 Dose: Not Given Pantoprazole Sodium (Protonix Ec Tab) 40 mg PO DAILY [facility] Last Admin: 08/12/16 10:55 Dose: 40 mg Quetiapine Fumarate (Seroquel) 50 mg PO [facility] Last Admin: 08/11/16 22:12 Dose: Not Given Quetiapine Fumarate (Seroquel) 50 mg PO DAILY [facility] Last Admin: 08/12/16 10:55 Dose: 50 mg Rosuvastatin Calcium (Crestor) 5 mg PO [facility] Last Admin: 08/11/16 22:12 Dose: Not Given Fluticasone/Salmeterol (Advair Diskus 250/50) 1 puff INH RQ12 [facility] Last Admin: 08/12/16 11:50 Dose: Not Given Tamsulosin HCl (Flomax) 0.4 mg PO DAILY [facility] Last Admin: 08/12/16 10:55 Dose: 0.4 mg Tiotropium [place] (Spiriva) 18 mcg INH RQ24 [facility] Last Admin: 08/12/16 11:50 Dose: Not Given Tramadol HCl (Ultram) 50 mg PO Q6H PRN PRN Reason: back pain Last Admin: 08/12/16 11:03 Dose: 50 mg - Labs Labs: 08/10/16 18:11 08/11/16 14:06 - Constitutional Appears: Well - Head Exam Head Exam: ATRAUMATIC, NORMAL INSPECTION, NORMOCEPHALIC - Eye Exam Eye Exam: EOMI, Normal appearance, PERRL Pupil Exam: NORMAL ACCOMODATION, PERRL - ENT Exam ENT Exam: Mucous Membranes Moist, Normal Exam - Neck Exam Neck Exam: Full ROM, Normal Inspection. absent: Lymphadenopathy - Respiratory Exam Respiratory Exam: Decreased Breath Sounds - Cardiovascular Exam Cardiovascular Exam: REGULAR RHYTHM, +S1, +S2 - GI/Abdominal Exam GI & Abdominal Exam: Soft, Diminished Bowel Sounds - Rectal Exam Rectal Exam: Deferred Assessment and Plan (1) Abnormal CXR (chest x-ray) Status: Acute (2) COPD (chronic obstructive pulmonary disease) Status: Acute (3) COPD exacerbation Status: Acute (4) Cardiac disease Status: Acute (5) Depression Status: Acute (6) Diabetes Status: Acute - Assessment and Plan (Free Text) Plan: Patient has a fracture on the lumbosacral spine neurology neurosurgery contacted continue same patient was denied by the rehab
--- NOTE | 2016-08-12 13:41 | CT ---
PROCEDURE: CT Lumbar Spine without contrast HISTORY: L2 compression fx, uncooperative with MRI COMPARISON: X-ray lumbar spine 08/10/2016 TECHNIQUE: Axial computed tomography images were obtained of the lumbar spine without the use of intravenous contrast. Coronal and sagittal reformatted images were created and reviewed. Radiation dose: Total exam DLP = 579.09 mGy-cm. This CT exam was performed using one or more of the following dose reduction techniques: Automated exposure control, adjustment of the mA and/or kV according to patient size, and/or use of iterative reconstruction technique. FINDINGS: VERTEBRAE: There is mild compression deformity of the superior L2 vertebral endplate. There is fracture through the anterior superior corner of the L2 vertebra with mild displacement of an anterior cortical fragment. There is ill-defined soft tissue density anterior and lateral to L2 vertebra, possibly edema. There is no epidural hemorrhage. There is no retropulsion of bony fragments. There is no spinal stenosis. The remaining vertebral bodies are maintained in height. The transverse processes and posterior elements are intact. DISCS/SPINAL CANAL/NEURAL FORAMINA: L1-2: Minimal disc bulge. No spinal or foraminal stenosis. L2-3: Diffuse disc bulge. No focal herniation. Mild left L2-3 foraminal stenosis. L3-4: Mild disc bulge. No focal herniation. Mild right L3-4 foraminal stenosis. Bulging disc contacts the right nerve root at this level. No spinal stenosis. L4-5: Diffuse disc bulge. No focal disc herniation. Bilateral facet arthropathy. Moderate bilateral neural foraminal stenosis. No spinal stenosis. L5-S1: Diffuse disc bulge. No focal herniation. Bilateral facet arthropathy and mild bilateral neural foraminal stenosis. No spinal stenosis. PARASPINAL SOFT TISSUES: As noted above, ill-defined soft tissue density anterior and lateral to the L2 vertebral body. Possible edema associated with compression fracture. Incidentally noted right sided small bladder diverticulum. Several small calculi bunched together in the lower pole of the right kidney. Right lower pole renal cyst. OTHER FINDINGS: None. IMPRESSION: Compression fracture anterior superior corner of the L2 vertebral body with mildly displaced fragment. Anterior and lateral ill-defined soft tissue density, nonspecific. No defined hematoma. No evidence of epidural hemorrhage. No bony retropulsion. Multilevel disc bulge with neural foraminal stenosis at multiple levels as above. No spinal stenosis. Nonobstructing small calculi lower pole right kidney. Right lower pole renal cortical cyst.
[2016-08-12 14:18] LABS: BASO # 0.1 K/uL (0.0-0.2); BASO % 0.9 % (0.0-2.0); EOS # 0.1 K/uL (0.0-0.7); EOS % 0.9 % (0.0-4.0); HEMATOCRIT 36.9 % (35.0-51.0); LYMPH # 2.7 K/uL (1.0-4.3); LYMPH % 32.5 % (20.0-40.0); MEAN CELL VOLUME 84.9 fL (80.0-94.0); MEAN CORPUSCULAR HGB CONC 31.8 g/dL (33.0-37.0); MONO # 0.7 K/uL (0.0-0.8); MONO % 8.7 % (0.0-10.0); RED CELL DISTRIBUTION WIDTH 18.9 % (11.5-14.5); WHITE BLOOD COUNT 8.4 K/uL (4.8-10.8)
[2016-08-12 14:43] LABS: CHLORIDE 103 mmol/L (98-107)
[2016-08-12 14:44] LABS: SODIUM 141 mmol/L (132-148)
[2016-08-12 14:47] LABS: ALB/GLOB RATIO 0.9 (1.0-2.1); ALKALINE PHOSPHATASE 57 U/L (38-126); ALT/SGPT 19 U/L (21-72); AST/SGOT 16 U/L (17-59); BILIRUBIN,TOTAL 0.5 mg/dL (0.2-1.3); BLOOD UREA NITROGEN 21 mg/dL (9-20); CARBON DIOXIDE 28 mmol/L (22-30); GFR AFRICAN-AMERICAN > 60; GLUCOSE,RANDOM 99 mg/dL (75-110); TOTAL PROTEIN 7.3 g/dL (6.3-8.3)
[2016-08-12 14:48] LABS: CALCIUM 9.2 mg/dl (8.6-10.4); MAGNESIUM 1.8 mg/dL (1.6-2.3)
[2016-08-13] MEDS: Levothyroxine 75 MCG TAB PO SCH (06:00)
[2016-08-13] MEDS: (Novolog) Insulin Aspart, Recombinant 100 u/ml 10 ml vial SC SCH ×4 (07:30→21:59)
[2016-08-13] MEDS: Tiotropium 18 mcg Cap For Inhalation INH SCH (08:32)
[2016-08-13] MEDS: Fluticasone-Salmeterol 250-50mcg Diskus INH SCH ×2 (08:32→20:55)
--- NOTE | 2016-08-13 09:24 | CP.PCM.PN ---
Subjective - Date & Time of Evaluation Date of Evaluation: 08/13/16 Time of Evaluation: 09:23 - Subjective Subjective: PGY2 Medicine Note- Dr. Solis's Service Patient denied rehab spot in [place] due to history of aggressive behavior. Patient can be re-evaluated in one week for placement if behavior under better control here and patient stable. Patient pending neurosurgery workup for L2 fracture. Objective - Vital Signs/Intake and Output Vital Signs (last 24 hours): Temp Pulse Resp BP Pulse Ox 97.6 F 85 20 149/65 98 08/13/16 08:36 08/13/16 08:36 08/13/16 08:36 08/13/16 08:36 08/13/16 08:36 Intake and Output: 08/13/16 08/13/16 06:59 18:59 Intake Total 250 Output Total 400 Balance -150 - Medications Medications: Current Medications Aspirin (Aspirin Chewable) 81 mg PO DAILY [facility] Last Admin: 08/12/16 10:54 Dose: 81 mg Calcium Carbonate (Tums) 500 mg PO BID [facility] Last Admin: 08/12/16 17:11 Dose: Not Given Diphenhydramine HCl (Benadryl) 25 mg PO Q6 PRN PRN Reason: Extra Pyramidal Symptoms Last Admin: 08/11/16 02:27 Dose: 25 mg Ferrous Sulfate (Feosol) 325 mg PO DAILY [facility] Last Admin: 08/12/16 10:55 Dose: 325 mg Guaifenesin/Dextromethorphan (Robitussin Dm) 10 ml PO TID [facility] Last Admin: 08/12/16 17:13 Dose: 10 ml Haloperidol (Haldol) 2 mg PO Q6 PRN PRN Reason: Moderate Agitation Last Admin: 08/12/16 02:30 Dose: 2 mg Haloperidol Lactate (Haldol) 2 mg IM Q6 PRN PRN Reason: Agitation Last Admin: 08/12/16 02:40 Dose: 2 mg Insulin Aspart (Novolog) 0 unit SC ACHS [facility] PRN Reason: Protocol Last Admin: 08/12/16 22:03 Dose: Not Given Levothyroxine Sodium (Synthroid) 37.5 mcg PO DAILY@0630 [facility] Last Admin: 08/13/16 06:00 Dose: Not Given Lorazepam (Ativan) 0.5 mg PO Q8 [facility] Last Admin: 08/13/16 06:00 Dose: Not Given Lorazepam (Ativan) 1 mg IM Q6H PRN PRN Reason: Agitation Last Admin: 08/13/16 03:56 Dose: 1 mg Megestrol Acetate (Megace) 40 mg PO DAILY [facility] Last Admin: 08/12/16 10:54 Dose: 40 mg Metformin HCl (Glucophage) 1,000 mg PO BID [facility] Last Admin: 08/12/16 17:13 Dose: 1,000 mg Mirtazapine (Remeron) 7.5 mg PO [facility] Last Admin: 08/12/16 21:22 Dose: 7.5 mg Pantoprazole Sodium (Protonix Ec Tab) 40 mg PO DAILY [facility] Last Admin: 08/12/16 10:55 Dose: 40 mg Quetiapine Fumarate (Seroquel) 50 mg PO HS [facility] Last Admin: 08/12/16 21:21 Dose: 50 mg Quetiapine Fumarate (Seroquel) 50 mg PO DAILY [facility] Last Admin: 08/12/16 10:55 Dose: 50 mg Rosuvastatin Calcium (Crestor) 5 mg PO [facility] Last Admin: 08/12/16 21:18 Dose: 5 mg Fluticasone/Salmeterol (Advair Diskus 250/50) 1 puff INH RQ12 [facility] Last Admin: 08/13/16 08:32 Dose: Not Given Tamsulosin HCl (Flomax) 0.4 mg PO DAILY [facility] Last Admin: 08/12/16 10:55 Dose: 0.4 mg Tiotropium [place] (Spiriva) 18 mcg INH RQ24 [facility] Last Admin: 08/13/16 08:32 Dose: Not Given Tramadol HCl (Ultram) 50 mg PO Q6H PRN PRN Reason: back pain Last Admin: 08/12/16 19:56 Dose: 50 mg - Labs Labs: 08/12/16 14:10 08/12/16 14:10 - Constitutional Appears: No Acute Distress, Cachectic, Chronically Ill - Head Exam Head Exam: ATRAUMATIC - Eye Exam Eye Exam: EOMI - ENT Exam ENT Exam: Mucous Membranes Moist - Respiratory Exam Respiratory Exam: Clear to Ausculation Bilateral, NORMAL BREATHING PATTERN - Cardiovascular Exam Cardiovascular Exam: +S1, +S2 - GI/Abdominal Exam GI & Abdominal Exam: Soft. absent: Tenderness - Extremities Exam Extremities Exam: absent: Pedal Edema - Back Exam Additional comments: lumbar spine tenderness - Neurological Exam Neurological Exam: Awake - Skin Skin Exam: Warm Assessment and Plan - Assessment and Plan (Free Text) Assessment: Lumbar back pain 08/13: per neurosurgery, Dr. Acuña, patient does not need intervention for L2 fracture 08/12: Ortho PA saw patient today - CT confirms acute appearing L2 compression fracture, no retropulsion seen per report. Ill defined soft tissue density seen , ? edema. Would recommend attempt MRI (unsure if patient will tolerate and cooperate) for further visualization. Neurosurgery Consulted, Dr. Rose. 08/11: Lumbar XRAY - 1. Age indeterminate acute superior endplate compression fracture in the L2 vertebral body with 4 mm retrolisthesis. 2. Mild multilevel degenerative disc disease, worse at L5-S1. see full report. -Consult Ortho, help appreciated - Dr. 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 08/11: patient now receiving Haldol IM for several days - first day he was AAOx3. 08/10: patient receiving the majority of his medications, sometimes refuses. 08/07: patient refused seroquel last night 08/06: Patient is accepting some medications, but still refusing others 08/05: Patient seen by psychiatry, Dr. Bajwa, help appreciated. Haldol IV: Haldol 2mg IM Q6 PRN 08/04: Re-consult psych for possible medication adjustments, as patient is refusing most PO medications including Haldol. 08/03: All meds per Psychiatry Psych consult - Dr. Galicia - f/u recs Continue Ativan 1mg IVP Q4H PRN agiation Haldol 2mg IM Q6 PRN, agitation Haldol 2mg PO Q6H PRN, moderate agitation Depression 08/10-08/11: patient receiving the majority of his medications, sometimes refuses. 08/06: Patient seen by psychiatry, Dr. Bajwa, help appreciated. 08/03: All meds per Psychiatry 07/30: improving 07/24: Suicidal ideations Psych reconsulted - Dr. Galicia - f/u recs 07/23: Pending placement 07/22: Patient is pending placement. 07/21 continue current management, add megace for appetite stimulant. Psych Dr. Bajwa consulted, help appreciated. Continue Remeron and Seroquel. Ativan 1mg IVP q4H PRN for agitation. Chest Pain - Resolved JAREK negative EKG with LBBB as prior EKGs have also shown Cardio consult - Dr. Marinelli - help appreciated ECHO - left ventricular is normal size. there is mild to moderate concentric left ventricular hypertrophy. the systolic function is midly to moderately impaired. septal hypokinesis. mild to moderate aortic regurgitation. mild pulmonary hypertension. (please see full report) Nodular opacity in chest Pulm consult - Dr. Hayden - help appreciated Chest CT - extensive bilateral fine nodular interstitial infiltrate both lower lobes. dense pleural based consolidation right lower lobe. subpleural emphysema. mild centrilobular pulmonary emphysema. left upper lobe nodules. 7mm and 9mm. reccomend f/u noncontrast chest CT in 3 months. Multiple left upper lobe nodular calcifications, likely granulomatous. probable small airways disease posterior right upper lobe. findings are nonspecific and may reflect infection or inflammatory disease. Patient needs to f/u outpatient per Dr. Hayden for nodular opacity in chest + COPD. COPD Pulm consult - Dr. Hayden - help appreciated Advair and Spiriva DM 08/10-08/12: WNL, stable. Continue to monitor. RISS, accuchecks. Lantus 10U SC HS, Metformin Hypothyroid Continue synthroid. COPD Duoneb q6. Spiriva. Hx of cardiac disease Continue Eliquis, ASA, Crestor. Prophylactic measure eliquis, Protonix. Social work referral. -Labs ordered MW. -PT rec -> [facility] Disposition Pending rehab placement, patient denied at [place] but can be re-eval next week All Medical Management per Dr. Solis
[2016-08-13] MEDS: Pantoprazole 40 mg EC Tab PO SCH (10:00)
[2016-08-13] MEDS: Calcium Carbonate 500 mg Chewable Antacid Tab PO SCH ×2 (10:00→18:00)
--- NOTE | 2016-08-13 10:28 | CP.PCM.PN ---
Subjective - Date & Time of Evaluation Date of Evaluation: 08/13/16 Time of Evaluation: 07:20 - Subjective Subjective: clinically same Objective - Vital Signs/Intake and Output Vital Signs (last 24 hours): Temp Pulse Resp BP Pulse Ox 97.6 F 85 20 149/65 98 08/13/16 08:36 08/13/16 08:36 08/13/16 08:36 08/13/16 08:36 08/13/16 08:36 Intake and Output: 08/13/16 08/13/16 06:59 18:59 Intake Total 250 Output Total 400 Balance -150 - Medications Medications: Current Medications Aspirin (Aspirin Chewable) 81 mg PO DAILY [facility] Last Admin: 08/12/16 10:54 Dose: 81 mg Calcium Carbonate (Tums) 500 mg PO BID [facility] Last Admin: 08/12/16 17:11 Dose: Not Given Diphenhydramine HCl (Benadryl) 25 mg PO Q6 PRN PRN Reason: Extra Pyramidal Symptoms Last Admin: 08/11/16 02:27 Dose: 25 mg Ferrous Sulfate (Feosol) 325 mg PO DAILY [facility] Last Admin: 08/12/16 10:55 Dose: 325 mg Guaifenesin/Dextromethorphan (Robitussin Dm) 10 ml PO TID [facility] Last Admin: 08/12/16 17:13 Dose: 10 ml Haloperidol (Haldol) 2 mg PO Q6 PRN PRN Reason: Moderate Agitation Last Admin: 08/12/16 02:30 Dose: 2 mg Haloperidol Lactate (Haldol) 2 mg IM Q6 PRN PRN Reason: Agitation Last Admin: 08/12/16 02:40 Dose: 2 mg Insulin Aspart (Novolog) 0 unit SC ACHS [facility] PRN Reason: Protocol Last Admin: 08/12/16 22:03 Dose: Not Given Levothyroxine Sodium (Synthroid) 37.5 mcg PO DAILY@0630 [facility] Last Admin: 08/13/16 06:00 Dose: Not Given Lorazepam (Ativan) 0.5 mg PO Q8 [facility] Last Admin: 08/13/16 06:00 Dose: Not Given Lorazepam (Ativan) 1 mg IM Q6H PRN PRN Reason: Agitation Last Admin: 08/13/16 03:56 Dose: 1 mg Megestrol Acetate (Megace) 40 mg PO DAILY [facility] Last Admin: 08/12/16 10:54 Dose: 40 mg Metformin HCl (Glucophage) 1,000 mg PO BID [facility] Last Admin: 08/12/16 17:13 Dose: 1,000 mg Mirtazapine (Remeron) 7.5 mg PO HS [facility] Last Admin: 08/12/16 21:22 Dose: 7.5 mg Pantoprazole Sodium (Protonix Ec Tab) 40 mg PO DAILY [facility] Last Admin: 08/12/16 10:55 Dose: 40 mg Quetiapine Fumarate (Seroquel) 50 mg PO HS [facility] Last Admin: 08/12/16 21:21 Dose: 50 mg Quetiapine Fumarate (Seroquel) 50 mg PO DAILY [facility] Last Admin: 08/12/16 10:55 Dose: 50 mg Rosuvastatin Calcium (Crestor) 5 mg PO HS [facility] Last Admin: 08/12/16 21:18 Dose: 5 mg Fluticasone/Salmeterol (Advair Diskus 250/50) 1 puff INH RQ12 [facility] Last Admin: 08/13/16 08:32 Dose: Not Given Tamsulosin HCl (Flomax) 0.4 mg PO DAILY [facility] Last Admin: 08/12/16 10:55 Dose: 0.4 mg Tiotropium [place] (Spiriva) 18 mcg INH RQ24 [facility] Last Admin: 08/13/16 08:32 Dose: Not Given Tramadol HCl (Ultram) 50 mg PO Q6H PRN PRN Reason: back pain Last Admin: 08/12/16 19:56 Dose: 50 mg - Labs Labs: 08/12/16 14:10 08/12/16 14:10 - Constitutional Appears: Well - Head Exam Head Exam: ATRAUMATIC, NORMAL INSPECTION, NORMOCEPHALIC - Eye Exam Eye Exam: EOMI, Normal appearance, PERRL Pupil Exam: NORMAL ACCOMODATION, PERRL - ENT Exam ENT Exam: Mucous Membranes Moist, Normal Exam - Neck Exam Neck Exam: Full ROM, Normal Inspection. absent: Lymphadenopathy - Respiratory Exam Respiratory Exam: Decreased Breath Sounds - Cardiovascular Exam Cardiovascular Exam: REGULAR RHYTHM, +S1, +S2 - GI/Abdominal Exam GI & Abdominal Exam: Soft, Diminished Bowel Sounds - Rectal Exam Rectal Exam: Deferred Assessment and Plan (1) Abnormal CXR (chest x-ray) Status: Acute (2) COPD (chronic obstructive pulmonary disease) Status: Acute (3) COPD exacerbation Status: Acute (4) Cardiac disease Status: Acute (5) Depression Status: Acute (6) Diabetes Status: Acute - Assessment and Plan (Free Text) Plan: jovi dumont pain meds neurology and neurosurgery conulted Dr. Villareal psych meds blood sugar control [employer]
[2016-08-13] MEDS: guaiFENesin DM 200 mg-20 mg/10 ml UD PO SCH ×3 (11:00→18:00)
--- NOTE | 2016-08-13 13:15 | CP.PCM.PN ---
Subjective - Date & Time of Evaluation Date of Evaluation: 08/13/16 Time of Evaluation: 13:13 - Subjective Subjective: Patient uncooperative, refuses exam. Objective - Vital Signs/Intake and Output Vital Signs (last 24 hours): Temp Pulse Resp BP Pulse Ox 97.6 F 85 20 149/65 98 08/13/16 08:36 08/13/16 08:36 08/13/16 08:36 08/13/16 08:36 08/13/16 08:36 Intake and Output: 08/13/16 08/13/16 06:59 18:59 Intake Total 250 Output Total 400 Balance -150 - Medications Medications: Current Medications Aspirin (Aspirin Chewable) 81 mg PO DAILY [facility] Last Admin: 08/13/16 10:00 Dose: 81 mg Calcium Carbonate (Tums) 500 mg PO BID [facility] Last Admin: 08/13/16 10:00 Dose: 500 mg Diphenhydramine HCl (Benadryl) 25 mg PO Q6 PRN PRN Reason: Extra Pyramidal Symptoms Last Admin: 08/11/16 02:27 Dose: 25 mg Ferrous Sulfate (Feosol) 325 mg PO DAILY [facility] Last Admin: 08/13/16 10:00 Dose: 325 mg Guaifenesin/Dextromethorphan (Robitussin Dm) 10 ml PO TID [facility] Last Admin: 08/13/16 11:00 Dose: 10 ml Haloperidol (Haldol) 2 mg PO Q6 PRN PRN Reason: Moderate Agitation Last Admin: 08/12/16 02:30 Dose: 2 mg Haloperidol Lactate (Haldol) 2 mg IM Q6 PRN PRN Reason: Agitation Last Admin: 08/12/16 02:40 Dose: 2 mg Insulin Aspart (Novolog) 0 unit SC ACHS [facility] PRN Reason: Protocol Last Admin: 08/13/16 11:59 Dose: Not Given Levothyroxine Sodium (Synthroid) 37.5 mcg PO DAILY@0630 [facility] Last Admin: 08/13/16 06:00 Dose: Not Given Lorazepam (Ativan) 0.5 mg PO Q8 [facility] Last Admin: 08/13/16 06:00 Dose: Not Given Lorazepam (Ativan) 1 mg IM Q6H PRN PRN Reason: Agitation Last Admin: 08/13/16 03:56 Dose: 1 mg Megestrol Acetate (Megace) 40 mg PO DAILY [facility] Last Admin: 08/13/16 10:00 Dose: 40 mg Metformin HCl (Glucophage) 1,000 mg PO BID [facility] Last Admin: 08/13/16 10:25 Dose: 1,000 mg Mirtazapine (Remeron) 7.5 mg PO HS [facility] Last Admin: 08/12/16 21:22 Dose: 7.5 mg Pantoprazole Sodium (Protonix Ec Tab) 40 mg PO DAILY [facility] Last Admin: 08/13/16 10:00 Dose: 40 mg Quetiapine Fumarate (Seroquel) 50 mg PO HS [facility] Last Admin: 08/12/16 21:21 Dose: 50 mg Quetiapine Fumarate (Seroquel) 50 mg PO DAILY [facility] Last Admin: 08/13/16 10:00 Dose: 50 mg Rosuvastatin Calcium (Crestor) 5 mg PO HS [facility] Last Admin: 08/12/16 21:18 Dose: 5 mg Fluticasone/Salmeterol (Advair Diskus 250/50) 1 puff INH RQ12 [facility] Last Admin: 08/13/16 08:32 Dose: Not Given Tamsulosin HCl (Flomax) 0.4 mg PO DAILY [facility] Last Admin: 08/13/16 10:00 Dose: 0.4 mg Tiotropium [place] (Spiriva) 18 mcg INH RQ24 [facility] Last Admin: 08/13/16 08:32 Dose: Not Given Tramadol HCl (Ultram) 50 mg PO Q6H PRN PRN Reason: back pain Last Admin: 08/12/16 19:56 Dose: 50 mg - Labs Labs: 08/12/16 14:10 08/12/16 14:10 - Extremities Exam Additional comments: unable to examine, pt refuses Assessment and Plan (1) Compression fracture of L2 Assessment & Plan: MRI ordered, pending Neurosurgery consult ordered d/w Dr. Villareal, will defer to biologics specialist, will sign off at this time Status: Acute
--- NOTE | 2016-08-13 14:16 | CP.PCM.CON ---
History of Present Illness - History of Present Illness History of Present Illness: min l2 compression ffx asymptomatc prob old no intervention req Past Patient History - Past Medical History & Family History Past Medical History?: Yes Past Family History: Reviewed and not pertinent - Past Social History Smoking Status: Unknown If Ever Smoked - CARDIAC Hx Congestive Heart Failure: Yes Hx Hypertension: Yes - PULMONARY Hx Chronic Obstructive Pulmonary Disease (COPD): Yes - NEUROLOGICAL Hx Alzheimer's Disease: Yes Hx Dementia: Yes - ENDOCRINE/METABOLIC Hx Diabetes Mellitus Type 2: Yes Hx Hypothyroidism: Yes - MUSCULOSKELETAL/RHEUMATOLOGICAL Hx Arthritis: Yes - PSYCHIATRIC Hx Depression: Yes Hx Substance Use: No - SURGICAL HISTORY Hx Appendectomy: Yes - ANESTHESIA Hx Anesthesia: Yes Hx Anesthesia Reactions: No Hx Malignant Hyperthermia: No Has any member of the family had a problem w/ anesthesia?: No Meds Allergies/Adverse Reactions: Allergies Allergy/AdvReac Type Severity Reaction Status Date / Time No Known Allergies Allergy Unverified 07/15/16 13:18 - Medications Medications: Current Medications Aspirin (Aspirin Chewable) 81 mg PO DAILY [facility] Last Admin: 08/13/16 10:00 Dose: 81 mg Calcium Carbonate (Tums) 500 mg PO BID [facility] Last Admin: 08/13/16 10:00 Dose: 500 mg Diphenhydramine HCl (Benadryl) 25 mg PO Q6 PRN PRN Reason: Extra Pyramidal Symptoms Last Admin: 08/11/16 02:27 Dose: 25 mg Ferrous Sulfate (Feosol) 325 mg PO DAILY [facility] Last Admin: 08/13/16 10:00 Dose: 325 mg Guaifenesin/Dextromethorphan (Robitussin Dm) 10 ml PO TID [facility] Last Admin: 08/13/16 11:00 Dose: 10 ml Haloperidol (Haldol) 2 mg PO Q6 PRN PRN Reason: Moderate Agitation Last Admin: 08/12/16 02:30 Dose: 2 mg Haloperidol Lactate (Haldol) 2 mg IM Q6 PRN PRN Reason: Agitation Last Admin: 08/12/16 02:40 Dose: 2 mg Insulin Aspart (Novolog) 0 unit SC ACHS [facility] PRN Reason: Protocol Last Admin: 08/13/16 11:59 Dose: Not Given Levothyroxine Sodium (Synthroid) 37.5 mcg PO DAILY@0630 [facility] Last Admin: 08/13/16 06:00 Dose: Not Given Lorazepam (Ativan) 0.5 mg PO Q8 [facility] Last Admin: 08/13/16 06:00 Dose: Not Given Lorazepam (Ativan) 1 mg IM Q6H PRN PRN Reason: Agitation Last Admin: 08/13/16 03:56 Dose: 1 mg Megestrol Acetate (Megace) 40 mg PO DAILY [facility] Last Admin: 08/13/16 10:00 Dose: 40 mg Metformin HCl (Glucophage) 1,000 mg PO BID [facility] Last Admin: 08/13/16 10:25 Dose: 1,000 mg Mirtazapine (Remeron) 7.5 mg PO HS [facility] Last Admin: 08/12/16 21:22 Dose: 7.5 mg Pantoprazole Sodium (Protonix Ec Tab) 40 mg PO DAILY [facility] Last Admin: 08/13/16 10:00 Dose: 40 mg Quetiapine Fumarate (Seroquel) 50 mg PO HS [facility] Last Admin: 08/12/16 21:21 Dose: 50 mg Quetiapine Fumarate (Seroquel) 50 mg PO DAILY [facility] Last Admin: 08/13/16 10:00 Dose: 50 mg Rosuvastatin Calcium (Crestor) 5 mg PO HS [facility] Last Admin: 08/12/16 21:18 Dose: 5 mg Fluticasone/Salmeterol (Advair Diskus 250/50) 1 puff INH RQ12 [facility] Last Admin: 08/13/16 08:32 Dose: Not Given Tamsulosin HCl (Flomax) 0.4 mg PO DAILY [facility] Last Admin: 08/13/16 10:00 Dose: 0.4 mg Tiotropium [place] (Spiriva) 18 mcg INH RQ24 [facility] Last Admin: 08/13/16 08:32 Dose: Not Given Tramadol HCl (Ultram) 50 mg PO Q6H PRN PRN Reason: back pain Last Admin: 08/12/16 19:56 Dose: 50 mg Results - Vital Signs Recent Vital Signs: Last Vital Signs Temp 97.6 F 08/13/16 08:36 Pulse 85 08/13/16 08:36 Resp 20 08/13/16 08:36 BP 149/65 08/13/16 08:36 Pulse Ox 98 08/13/16 08:36 - Labs Result Diagrams: 08/12/16 14:10 08/12/16 14:10 Labs: Laboratory Results - last 24 hr 08/12/16 08/12/16 08/12/16 14:10 14:10 16:37 WBC 8.4 RBC 4.35 L Hgb 11.8 L Hct 36.9 MCV 84.9 MCH 27.0 MCHC 31.8 L RDW 18.9 H Plt Count 349 MPV 8.0 Neut % (Auto) 57.0 Lymph % (Auto) 32.5 [place] % (Auto) 8.7 Eos % (Auto) 0.9 Baso % (Auto) 0.9 Neut # 4.8 Lymph # 2.7 [place] # 0.7 Eos # 0.1 Baso # 0.1 Sodium 141 Potassium 4.0 Chloride 103 Carbon Dioxide 28 Anion Gap 14 BUN 21 H Creatinine 0.9 Est GFR ( Amer) > 60 Est GFR (Non-Af Amer) > 60 POC Glucose (mg/dL) 146 H Random Glucose 99 Calcium 9.2 Phosphorus 4.0 Magnesium 1.8 Total Bilirubin 0.5 AST 16 L ALT 19 L Alkaline Phosphatase 57 Total Protein 7.3 Albumin 3.5 Globulin 3.8 Albumin/Globulin Ratio 0.9 L 08/13/16 08/13/16 07:45 11:36 WBC RBC Hgb Hct MCV MCH MCHC RDW Plt Count MPV Neut % (Auto) Lymph % (Auto) [place] % (Auto) Eos % (Auto) Baso % (Auto) Neut # Lymph # [place] # Eos # Baso # Sodium Potassium Chloride Carbon Dioxide Anion Gap BUN Creatinine Est GFR ( Amer) Est GFR (Non-Af Amer) POC Glucose (mg/dL) 125 H 120 H Random Glucose Calcium Phosphorus Magnesium Total Bilirubin AST ALT Alkaline Phosphatase Total Protein Albumin Globulin Albumin/Globulin Ratio
[2016-08-14] MEDS: Levothyroxine 75 MCG TAB PO SCH (06:14)
[2016-08-14] MEDS: Fluticasone-Salmeterol 250-50mcg Diskus INH SCH ×2 (08:00→19:16)
[2016-08-14] MEDS: Tiotropium 18 mcg Cap For Inhalation INH SCH (08:00)
[2016-08-14] MEDS: (Novolog) Insulin Aspart, Recombinant 100 u/ml 10 ml vial SC SCH ×4 (08:20→22:02)
[2016-08-14 10:30] LABS: BASO # 0.1 K/uL (0.0-0.2); BASO % 0.9 % (0.0-2.0); EOS # 0.1 K/uL (0.0-0.7); EOS % 0.6 % (0.0-4.0); HEMATOCRIT 34.3 % (35.0-51.0); LYMPH # 2.3 K/uL (1.0-4.3); LYMPH % 24.1 % (20.0-40.0); MEAN CELL VOLUME 83.8 fL (80.0-94.0); MEAN CORPUSCULAR HEMOGLOBIN 26.9 pg (27.0-31.0); MEAN CORPUSCULAR HGB CONC 32.1 g/dL (33.0-37.0); MEAN PLATELET VOLUME 8.1 fL (7.2-11.7); MONO # 0.7 K/uL (0.0-0.8); MONO % 7.2 % (0.0-10.0); RED CELL DISTRIBUTION WIDTH 18.6 % (11.5-14.5); WHITE BLOOD COUNT 9.6 K/uL (4.8-10.8)
[2016-08-14] MEDS: Calcium Carbonate 500 mg Chewable Antacid Tab PO SCH ×2 (10:42→18:00)
[2016-08-14] MEDS: guaiFENesin DM 200 mg-20 mg/10 ml UD PO SCH ×3 (10:42→18:00)
[2016-08-14] MEDS: Pantoprazole 40 mg EC Tab PO SCH (10:42)
[2016-08-14 10:57] LABS: CHLORIDE 105 mmol/L (98-107); SODIUM 137 mmol/L (132-148)
[2016-08-14 10:59] LABS: AST/SGOT 19 U/L (17-59); BILIRUBIN,TOTAL 0.5 mg/dL (0.2-1.3); CARBON DIOXIDE 23 mmol/L (22-30); GFR AFRICAN-AMERICAN > 60
[2016-08-14 11:00] LABS: ALB/GLOB RATIO 0.9 (1.0-2.1); ALKALINE PHOSPHATASE 56 U/L (38-126); ALT/SGPT 12 U/L (21-72); BLOOD UREA NITROGEN 21 mg/dL (9-20); CALCIUM 8.8 mg/dl (8.6-10.4); GLUCOSE,RANDOM 143 mg/dL (75-110); MAGNESIUM 1.7 mg/dL (1.6-2.3); TOTAL PROTEIN 6.6 g/dL (6.3-8.3)
--- NOTE | 2016-08-14 11:08 | CP.PCM.PN ---
Subjective - Date & Time of Evaluation Date of Evaluation: 08/14/16 Time of Evaluation: 07:20 - Subjective Subjective: clinically same Objective - Vital Signs/Intake and Output Vital Signs (last 24 hours): Temp Pulse Resp BP Pulse Ox 98.1 F 79 20 106/64 98 08/13/16 16:20 08/13/16 16:20 08/13/16 16:20 08/13/16 16:20 08/13/16 16:20 Intake and Output: 08/14/16 08/14/16 06:59 18:59 Intake Total 500 Balance 500 - Medications Medications: Current Medications Aspirin (Aspirin Chewable) 81 mg PO DAILY [facility] Last Admin: 08/14/16 10:42 Dose: Not Given Calcium Carbonate (Tums) 500 mg PO BID [facility] Last Admin: 08/14/16 10:42 Dose: Not Given Diphenhydramine HCl (Benadryl) 25 mg PO Q6 PRN PRN Reason: Extra Pyramidal Symptoms Last Admin: 08/11/16 02:27 Dose: 25 mg Ferrous Sulfate (Feosol) 325 mg PO DAILY [facility] Last Admin: 08/14/16 10:42 Dose: Not Given Guaifenesin/Dextromethorphan (Robitussin Dm) 10 ml PO TID [facility] Last Admin: 08/14/16 10:42 Dose: Not Given Haloperidol (Haldol) 2 mg PO Q6 PRN PRN Reason: Moderate Agitation Last Admin: 08/12/16 02:30 Dose: 2 mg Haloperidol Lactate (Haldol) 2 mg IM Q6 PRN PRN Reason: Agitation Last Admin: 08/12/16 02:40 Dose: 2 mg Insulin Aspart (Novolog) 0 unit SC [facility] PRN Reason: Protocol Last Admin: 08/14/16 08:20 Dose: Not Given Levothyroxine Sodium (Synthroid) 37.5 mcg PO DAILY@0630 [facility] Last Admin: 08/14/16 06:14 Dose: 37.5 mcg Lorazepam (Ativan) 1 mg IM Q6H PRN PRN Reason: Agitation Last Admin: 08/14/16 10:43 Dose: 1 mg Megestrol Acetate (Megace) 40 mg PO DAILY [facility] Last Admin: 08/14/16 10:42 Dose: Not Given Metformin HCl (Glucophage) 1,000 mg PO BID [facility] Last Admin: 08/14/16 10:42 Dose: Not Given Mirtazapine (Remeron) 7.5 mg PO HS [facility] Last Admin: 08/13/16 22:00 Dose: 7.5 mg Pantoprazole Sodium (Protonix Ec Tab) 40 mg PO DAILY [facility] Last Admin: 08/14/16 10:42 Dose: Not Given Quetiapine Fumarate (Seroquel) 50 mg PO HS [facility] Last Admin: 08/13/16 22:00 Dose: 50 mg Quetiapine Fumarate (Seroquel) 50 mg PO DAILY [facility] Last Admin: 08/14/16 10:42 Dose: Not Given Rosuvastatin Calcium (Crestor) 5 mg PO HS [facility] Last Admin: 08/13/16 21:57 Dose: 5 mg Fluticasone/Salmeterol (Advair Diskus 250/50) 1 puff INH RQ12 [facility] Last Admin: 08/13/16 20:55 Dose: Not Given Tamsulosin HCl (Flomax) 0.4 mg PO DAILY [facility] Last Admin: 08/14/16 10:42 Dose: Not Given Tiotropium [place] (Spiriva) 18 mcg INH RQ24 [facility] Last Admin: 08/13/16 08:32 Dose: Not Given Tramadol HCl (Ultram) 50 mg PO Q6H PRN PRN Reason: back pain Last Admin: 08/14/16 08:31 Dose: 50 mg - Labs Labs: 08/14/16 10:26 08/14/16 10:26 - Constitutional Appears: Well - Head Exam Head Exam: ATRAUMATIC, NORMAL INSPECTION, NORMOCEPHALIC - Eye Exam Eye Exam: EOMI, Normal appearance, PERRL Pupil Exam: NORMAL ACCOMODATION, PERRL - ENT Exam ENT Exam: Mucous Membranes Moist, Normal Exam - Neck Exam Neck Exam: Full ROM, Normal Inspection. absent: Lymphadenopathy - Respiratory Exam Respiratory Exam: Decreased Breath Sounds - Cardiovascular Exam Cardiovascular Exam: REGULAR RHYTHM, +S1, +S2 - GI/Abdominal Exam GI & Abdominal Exam: Soft, Diminished Bowel Sounds - Rectal Exam Rectal Exam: Deferred Assessment and Plan (1) Abnormal CXR (chest x-ray) Status: Acute (2) COPD (chronic obstructive pulmonary disease) Status: Acute (3) COPD exacerbation Status: Acute (4) Cardiac disease Status: Acute (5) Depression Status: Acute (6) Diabetes Status: Acute - Assessment and Plan (Free Text) Plan: No surgical intervention for a fracture on L2 seen by Dr. Rios vascular continue same Follow-up for subacute placement continue same patient is still combative occasionally
[2016-08-15] MEDS: Levothyroxine 75 MCG TAB PO SCH (05:41)
[2016-08-15] MEDS: (Novolog) Insulin Aspart, Recombinant 100 u/ml 10 ml vial SC SCH ×3 (08:24→22:25)
[2016-08-15] MEDS: Fluticasone-Salmeterol 250-50mcg Diskus INH SCH (08:45)
[2016-08-15] MEDS: Tiotropium 18 mcg Cap For Inhalation INH SCH (08:47)
[2016-08-15] MEDS: Pantoprazole 40 mg EC Tab PO SCH (10:53)
[2016-08-15] MEDS: guaiFENesin DM 200 mg-20 mg/10 ml UD PO SCH ×2 (10:54→14:19)
[2016-08-15] MEDS: Calcium Carbonate 500 mg Chewable Antacid Tab PO SCH (10:57)
--- NOTE | 2016-08-15 20:42 | CP.PCM.PN ---
Subjective - Date & Time of Evaluation Date of Evaluation: 08/15/16 Time of Evaluation: 08:20 - Subjective Subjective: clinically same Objective - Vital Signs/Intake and Output Vital Signs (last 24 hours): Temp Pulse Resp BP Pulse Ox 98.0 F 67 20 127/77 95 08/15/16 10:00 08/15/16 10:00 08/14/16 15:05 08/15/16 10:00 08/14/16 16:31 - Medications Medications: Current Medications Diphenhydramine HCl (Benadryl) 25 mg PO Q6 PRN PRN Reason: Extra Pyramidal Symptoms Last Admin: 08/11/16 02:27 Dose: 25 mg Guaifenesin/Dextromethorphan (Robitussin Dm) 10 ml PO TID [facility] Last Admin: 08/15/16 14:19 Dose: Not Given Haloperidol (Haldol) 2 mg PO Q6 PRN PRN Reason: Moderate Agitation Last Admin: 08/15/16 03:44 Dose: 2 mg Haloperidol Lactate (Haldol) 2 mg IM Q6 PRN PRN Reason: Agitation Last Admin: 08/12/16 02:40 Dose: 2 mg Insulin Aspart (Novolog) 0 unit SC [facility] PRN Reason: Protocol Last Admin: 08/15/16 13:58 Dose: Not Given Levothyroxine Sodium (Synthroid) 37.5 mcg PO DAILY@0630 [facility] Last Admin: 08/15/16 05:41 Dose: Not Given Lorazepam (Ativan) 1 mg IM Q6H PRN PRN Reason: Agitation Last Admin: 08/15/16 06:20 Dose: 1 mg Megestrol Acetate (Megace) 40 mg PO DAILY [facility] Last Admin: 08/15/16 10:54 Dose: 40 mg Mirtazapine (Remeron) 7.5 mg PO HS [facility] Last Admin: 08/14/16 21:22 Dose: 7.5 mg Quetiapine Fumarate (Seroquel) 50 mg PO HS [facility] Last Admin: 08/14/16 21:23 Dose: 50 mg Quetiapine Fumarate (Seroquel) 50 mg PO DAILY [facility] Last Admin: 08/15/16 10:57 Dose: 50 mg Rosuvastatin Calcium (Crestor) 5 mg PO [facility] Last Admin: 08/14/16 21:22 Dose: 5 mg Fluticasone/Salmeterol (Advair Diskus 250/50) 1 puff INH RQ12 [facility] Last Admin: 08/15/16 08:45 Dose: Not Given Tiotropium [place] (Spiriva) 18 mcg INH RQ24 [facility] Last Admin: 08/15/16 08:47 Dose: Not Given Tramadol HCl (Ultram) 50 mg PO Q6H PRN PRN Reason: back pain Last Admin: 08/14/16 21:22 Dose: 50 mg - Labs Labs: 08/14/16 10:26 08/14/16 10:26 Assessment and Plan (1) Abnormal CXR (chest x-ray) Status: Acute (2) COPD (chronic obstructive pulmonary disease) Status: Acute (3) COPD exacerbation Status: Acute (4) Cardiac disease Status: Acute (5) Depression Status: Acute (6) Diabetes Status: Acute - Assessment and Plan (Free Text) Plan: jovi same pain improveed haloperidol seroquel accuchecks labs next am jovi as ordered
[2016-08-16] MEDS: Levothyroxine 75 MCG TAB PO SCH (06:26)
--- NOTE | 2016-08-16 06:57 | CP.PCM.PN ---
Subjective - Date & Time of Evaluation Date of Evaluation: 08/16/16 Time of Evaluation: 07:20 - Subjective Subjective: clinically same Objective - Vital Signs/Intake and Output Vital Signs (last 24 hours): Temp Pulse Resp BP Pulse Ox 98.0 F 67 20 127/77 95 08/15/16 10:00 08/15/16 10:00 08/14/16 15:05 08/15/16 10:00 08/14/16 16:31 Intake and Output: 08/15/16 08/16/16 18:59 06:59 Intake Total 200 Balance 200 - Medications Medications: Current Medications Aspirin (Aspirin Chewable) 81 mg PO DAILY [facility] Calcium Carbonate (Tums) 500 mg PO BID [facility] Diphenhydramine HCl (Benadryl) 25 mg PO Q6 PRN PRN Reason: Extra Pyramidal Symptoms Last Admin: 08/11/16 02:27 Dose: 25 mg Ferrous Sulfate (Feosol) 325 mg PO TID [facility] Guaifenesin/Dextromethorphan (Robitussin Dm) 10 ml PO TID [facility] Last Admin: 08/15/16 14:19 Dose: Not Given Haloperidol (Haldol) 2 mg PO Q6 PRN PRN Reason: Moderate Agitation Last Admin: 08/16/16 00:45 Dose: 2 mg Haloperidol Lactate (Haldol) 2 mg IM Q6 PRN PRN Reason: Agitation Last Admin: 08/12/16 02:40 Dose: 2 mg Insulin Aspart (Novolog) 0 unit SC [facility] PRN Reason: Protocol Last Admin: 08/15/16 22:25 Dose: Not Given Levothyroxine Sodium (Synthroid) 37.5 mcg PO DAILY@0630 [facility] Last Admin: 08/16/16 06:26 Dose: 37.5 mcg Lorazepam (Ativan) 1 mg IM Q6H PRN PRN Reason: Agitation Last Admin: 08/16/16 02:00 Dose: 1 mg Megestrol Acetate (Megace) 40 mg PO DAILY [facility] Last Admin: 08/15/16 10:54 Dose: 40 mg Metformin HCl (Glucophage) 1,000 mg PO BID [facility] Pantoprazole Sodium (Protonix Ec Tab) 40 mg PO DAILY [facility] Quetiapine Fumarate (Seroquel) 50 mg PO HS [facility] Last Admin: 08/15/16 22:49 Dose: Not Given Quetiapine Fumarate (Seroquel) 50 mg PO DAILY [facility] Last Admin: 08/15/16 10:57 Dose: 50 mg Fluticasone/Salmeterol (Advair Diskus 250/50) 1 puff INH RQ12 [facility] Last Admin: 08/15/16 08:45 Dose: Not Given Tamsulosin HCl (Flomax) 0.4 mg PO DAILY [facility] Tiotropium [place] (Spiriva) 18 mcg INH RQ24 [facility] Last Admin: 08/15/16 08:47 Dose: Not Given Tramadol HCl (Ultram) 50 mg PO Q6H PRN PRN Reason: back pain Last Admin: 08/14/16 21:22 Dose: 50 mg - Labs Labs: 08/14/16 10:26 08/14/16 10:26 - Constitutional Appears: Well - Head Exam Head Exam: ATRAUMATIC, NORMAL INSPECTION, NORMOCEPHALIC - Eye Exam Eye Exam: EOMI, Normal appearance, PERRL Pupil Exam: NORMAL ACCOMODATION, PERRL - ENT Exam ENT Exam: Mucous Membranes Moist, Normal Exam - Neck Exam Neck Exam: Full ROM, Normal Inspection. absent: Lymphadenopathy - Respiratory Exam Respiratory Exam: Decreased Breath Sounds - Cardiovascular Exam Cardiovascular Exam: REGULAR RHYTHM, +S1, +S2 - GI/Abdominal Exam GI & Abdominal Exam: Soft, Diminished Bowel Sounds - Rectal Exam Rectal Exam: Deferred Assessment and Plan (1) Abnormal CXR (chest x-ray) Status: Acute (2) COPD (chronic obstructive pulmonary disease) Status: Acute (3) COPD exacerbation Status: Acute (4) Cardiac disease Status: Acute (5) Depression Status: Acute (6) Diabetes Status: Acute - Assessment and Plan (Free Text) Plan: pt comfortable no neuro deficit jovi same neuro on board bedrest physical therapy
--- NOTE | 2016-08-16 08:59 | CP.PCM.PN ---
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 WILL BE ACCOMPLSHED TODAY s- PT COMFORTABLE AT TIME OF EVAL/COMPLAINING OF ESSENTIALL0 BACK DISCOMFORT Objective - Vital Signs/Intake and Output Vital Signs (last 24 hours): Temp Pulse Resp BP Pulse Ox 98.0 F 67 20 127/77 95 08/15/16 10:00 08/15/16 10:00 08/14/16 15:05 08/15/16 10:00 08/14/16 16:31 Intake and Output: 08/16/16 08/16/16 06:59 18:59 Intake Total 200 Balance 200 - Medications Medications: Current Medications Aspirin (Aspirin Chewable) 81 mg PO DAILY [facility] Calcium Carbonate (Tums) 500 mg PO BID [facility] Diphenhydramine HCl (Benadryl) 25 mg PO Q6 PRN PRN Reason: Extra Pyramidal Symptoms Last Admin: 08/11/16 02:27 Dose: 25 mg Ferrous Sulfate (Feosol) 325 mg PO TID [facility] Guaifenesin/Dextromethorphan (Robitussin Dm) 10 ml PO TID [facility] Last Admin: 08/15/16 14:19 Dose: Not Given Haloperidol (Haldol) 2 mg PO Q6 PRN PRN Reason: Moderate Agitation Last Admin: 08/16/16 00:45 Dose: 2 mg Haloperidol Lactate (Haldol) 2 mg IM Q6 PRN PRN Reason: Agitation Last Admin: 08/12/16 02:40 Dose: 2 mg Insulin Aspart (Novolog) 0 unit SC [facility] PRN Reason: Protocol Last Admin: 08/15/16 22:25 Dose: Not Given Levothyroxine Sodium (Synthroid) 37.5 mcg PO DAILY@0630 [facility] Last Admin: 08/16/16 06:26 Dose: 37.5 mcg Lorazepam (Ativan) 1 mg IM Q6H PRN PRN Reason: Agitation Last Admin: 08/16/16 02:00 Dose: 1 mg Megestrol Acetate (Megace) 40 mg PO DAILY [facility] Last Admin: 08/15/16 10:54 Dose: 40 mg Metformin HCl (Glucophage) 1,000 mg PO BID [facility] Pantoprazole Sodium (Protonix Ec Tab) 40 mg PO DAILY [facility] Quetiapine Fumarate (Seroquel) 50 mg PO HS [facility] Last Admin: 08/15/16 22:49 Dose: Not Given Quetiapine Fumarate (Seroquel) 50 mg PO DAILY [facility] Last Admin: 08/15/16 10:57 Dose: 50 mg Fluticasone/Salmeterol (Advair Diskus 250/50) 1 puff INH RQ12 [facility] Last Admin: 08/15/16 08:45 Dose: Not Given Tamsulosin HCl (Flomax) 0.4 mg PO DAILY [facility] Tiotropium [place] (Spiriva) 18 mcg INH RQ24 [facility] Last Admin: 08/15/16 08:47 Dose: Not Given Tramadol HCl (Ultram) 50 mg PO Q6H PRN PRN Reason: back pain Last Admin: 08/14/16 21:22 Dose: 50 mg - Labs Labs: 08/14/16 10:26 08/14/16 10:26 - Additional Findings Additional findings: Obj systemic- grossly wnl pt comfortable at time of encounterMusculoskekltal stance/gait- defrred pt with MINIMAL discomfort to fist percussion no neuro deficits Xray/CT- compression nfx- no evidence of retropulsion to cord orthopedically stable Assessment and Plan - Assessment and Plan (Free Text) Assessment: A- compression fractrues stable and relatively asymptomatic P conservative mgmt- bedrest followed by progressive physio
[2016-08-16] MEDS: Tiotropium 18 mcg Cap For Inhalation INH SCH (09:00)
[2016-08-16] MEDS: (Novolog) Insulin Aspart, Recombinant 100 u/ml 10 ml vial SC SCH ×4 (09:25→22:07)
[2016-08-16] MEDS: Pantoprazole 40 mg EC Tab PO SCH (09:28)
[2016-08-16] MEDS: Calcium Carbonate 500 mg Chewable Antacid Tab PO SCH ×2 (09:32→17:37)
[2016-08-16] MEDS: guaiFENesin DM 200 mg-20 mg/10 ml UD PO SCH ×4 (09:34→17:37)
[2016-08-16] MEDS: Fluticasone-Salmeterol 250-50mcg Diskus INH SCH (09:45)
[2016-08-17] MEDS: Levothyroxine 75 MCG TAB PO SCH (05:40)
[2016-08-17] MEDS: Fluticasone-Salmeterol 250-50mcg Diskus INH SCH ×2 (07:36→19:35)
[2016-08-17] MEDS: Tiotropium 18 mcg Cap For Inhalation INH SCH (07:36)
--- NOTE | 2016-08-17 09:27 | CP.PCM.PN ---
Objective - Vital Signs/Intake and Output Vital Signs (last 24 hours): Temp Pulse Resp BP Pulse Ox 98 F 81 16 109/70 98 08/16/16 23:18 08/16/16 23:18 08/16/16 23:18 08/16/16 23:18 08/16/16 23:18 Intake and Output: 08/17/16 08/17/16 06:59 18:59 Intake Total 200 200 Balance 200 200 - Medications Medications: Current Medications Aspirin (Aspirin Chewable) 81 mg PO DAILY [facility] Last Admin: 08/16/16 09:27 Dose: 81 mg Calcium Carbonate (Tums) 500 mg PO BID [facility] Last Admin: 08/16/16 17:37 Dose: 500 mg Diphenhydramine HCl (Benadryl) 25 mg PO Q6 PRN PRN Reason: Extra Pyramidal Symptoms Last Admin: 08/11/16 02:27 Dose: 25 mg Ferrous Sulfate (Feosol) 325 mg PO TID [facility] Last Admin: 08/16/16 17:37 Dose: 325 mg Guaifenesin/Dextromethorphan (Robitussin Dm) 10 ml PO TID [facility] Last Admin: 08/16/16 17:37 Dose: 10 ml Haloperidol (Haldol) 2 mg PO Q6 PRN PRN Reason: Moderate Agitation Last Admin: 08/17/16 04:31 Dose: 2 mg Haloperidol Lactate (Haldol) 2 mg IM Q6 PRN PRN Reason: Agitation Last Admin: 08/12/16 02:40 Dose: 2 mg Insulin Aspart (Novolog) 0 unit SC A[facility]S [facility] PRN Reason: Protocol Last Admin: 08/16/16 22:07 Dose: Not Given Levothyroxine Sodium (Synthroid) 37.5 mcg PO DAILY@0630 [facility] Last Admin: 08/17/16 05:40 Dose: 37.5 mcg Lorazepam (Ativan) 1 mg IM Q6H PRN PRN Reason: Agitation Last Admin: 08/16/16 19:50 Dose: 1 mg Megestrol Acetate (Megace) 40 mg PO DAILY [facility] Last Admin: 08/16/16 09:31 Dose: 40 mg [facility] Last Admin: 08/16/16 17:37 Dose: 1,000 mg Pantoprazole Sodium (Protonix Ec Tab) 40 mg PO DAILY [facility] Last Admin: 08/16/16 09:28 Dose: 40 mg Quetiapine Fumarate (Seroquel) 50 mg PO HS [facility] Last Admin: 08/16/16 21:43 Dose: 50 mg Quetiapine Fumarate (Seroquel) 50 mg PO DAILY [facility] Last Admin: 08/16/16 09:32 Dose: 50 mg Fluticasone/Salmeterol (Advair Diskus 250/50) 1 puff INH RQ12 [facility] Last Admin: 08/17/16 07:36 Dose: 1 puff Tamsulosin HCl (Flomax) 0.4 mg PO DAILY [facility] Last Admin: 08/16/16 09:28 Dose: 0.4 mg Tiotropium [place] (Spiriva) 18 mcg INH RQ24 [facility] Last Admin: 08/17/16 07:36 Dose: 18 mcg Tramadol HCl (Ultram) 50 mg PO Q6H PRN PRN Reason: back pain Last Admin: 08/16/16 09:41 Dose: 50 mg - Labs Labs: 08/14/16 10:26 08/14/16 10:26
[2016-08-17] MEDS: (Novolog) Insulin Aspart, Recombinant 100 u/ml 10 ml vial SC SCH ×4 (09:39→21:47)
[2016-08-17] MEDS: Pantoprazole 40 mg EC Tab PO SCH (10:08)
[2016-08-17] MEDS: guaiFENesin DM 200 mg-20 mg/10 ml UD PO SCH ×3 (10:09→18:09)
[2016-08-17] MEDS: Calcium Carbonate 500 mg Chewable Antacid Tab PO SCH ×2 (10:10→18:00)
[2016-08-17 12:01] LABS: BASO # 0.1 K/uL (0.0-0.2); BASO % 0.5 % (0.0-2.0); EOS # 0.1 K/uL (0.0-0.7); EOS % 0.7 % (0.0-4.0); HEMATOCRIT 39.7 % (35.0-51.0); LYMPH % 15.9 % (20.0-40.0); MEAN CELL VOLUME 84.5 fL (80.0-94.0); MEAN CORPUSCULAR HEMOGLOBIN 26.7 pg (27.0-31.0); MEAN CORPUSCULAR HGB CONC 31.7 g/dL (33.0-37.0); MEAN PLATELET VOLUME 8.5 fL (7.2-11.7); MONO # 0.8 K/uL (0.0-0.8); MONO % 6.7 % (0.0-10.0); RED CELL DISTRIBUTION WIDTH 18.9 % (11.5-14.5); WHITE BLOOD COUNT 12.6 K/uL (4.8-10.8)
[2016-08-17 12:15] LABS: CHLORIDE 105 mmol/L (98-107); POTASSIUM 4.2 mmol/L (3.6-5.2); SODIUM 139 mmol/L (132-148)
[2016-08-17 12:17] LABS: ALKALINE PHOSPHATASE 75 U/L (38-126); ALT/SGPT 15 U/L (21-72); AST/SGOT 20 U/L (17-59); BILIRUBIN,TOTAL 0.7 mg/dL (0.2-1.3); BLOOD UREA NITROGEN 26 mg/dL (9-20); CARBON DIOXIDE 23 mmol/L (22-30); GFR AFRICAN-AMERICAN > 60; TOTAL PROTEIN 6.8 g/dL (6.3-8.3)
[2016-08-17 12:18] LABS: CALCIUM 9.2 mg/dl (8.6-10.4); GLUCOSE,RANDOM 173 mg/dL (75-110); MAGNESIUM 1.8 mg/dL (1.6-2.3); PHOSPHOROUS 3.6 mg/dL (2.5-4.5)
--- NOTE | 2016-08-17 13:39 | CP.PCM.PN ---
Subjective - Date & Time of Evaluation Date of Evaluation: 08/17/16 Time of Evaluation: 13:39 - Subjective Subjective: COPD Exacerbation Diabetes abnormal x-ray Steroids Bronchodilators Oxygen supplementation Accu-Chek Insulin coverage Cardiology follow-up DVT/GI prophylaxis Objective - Vital Signs/Intake and Output Vital Signs (last 24 hours): Temp Pulse Resp BP Pulse Ox 98 F 81 16 109/70 98 08/16/16 23:18 08/16/16 23:18 08/16/16 23:18 08/16/16 23:18 08/16/16 23:18 Intake and Output: 08/17/16 08/17/16 06:59 18:59 Intake Total 200 200 Balance 200 200 - Medications Medications: Current Medications Aspirin (Aspirin Chewable) 81 mg PO DAILY [facility] Last Admin: 08/17/16 10:08 Dose: 81 mg Calcium Carbonate (Tums) 500 mg PO BID [facility] Last Admin: 08/17/16 10:10 Dose: 500 mg Diphenhydramine HCl (Benadryl) 25 mg PO Q6 PRN PRN Reason: Extra Pyramidal Symptoms Last Admin: 08/11/16 02:27 Dose: 25 mg Ferrous Sulfate (Feosol) 325 mg PO TID [facility] Last Admin: 08/17/16 10:08 Dose: 325 mg Guaifenesin/Dextromethorphan (Robitussin Dm) 10 ml PO TID [facility] Last Admin: 08/17/16 10:09 Dose: 10 ml Haloperidol (Haldol) 2 mg PO Q6 PRN PRN Reason: Moderate Agitation Last Admin: 08/17/16 10:10 Dose: 2 mg Haloperidol Lactate (Haldol) 2 mg IM Q6 PRN PRN Reason: Agitation Last Admin: 08/12/16 02:40 Dose: 2 mg Insulin Aspart (Novolog) 0 unit SC [facility] PRN Reason: Protocol Last Admin: 08/17/16 09:39 Dose: Not Given Levothyroxine Sodium (Synthroid) 37.5 mcg PO DAILY@0630 [facility] Last Admin: 08/17/16 05:40 Dose: 37.5 mcg Lorazepam (Ativan) 1 mg IM Q6H PRN PRN Reason: Agitation Last Admin: 08/16/16 19:50 Dose: 1 mg Megestrol Acetate (Megace) 40 mg PO DAILY [facility] Last Admin: 08/17/16 10:10 Dose: 40 mg Metformin HCl (Glucophage) 1,000 mg PO BIDCC [facility] Last Admin: 08/17/16 10:08 Dose: 1,000 mg Pantoprazole Sodium (Protonix Ec Tab) 40 mg PO DAILY [facility] Last Admin: 08/17/16 10:08 Dose: 40 mg Quetiapine Fumarate (Seroquel) 50 mg PO HS [facility] Last Admin: 08/16/16 21:43 Dose: 50 mg Quetiapine Fumarate (Seroquel) 50 mg PO DAILY [facility] Last Admin: 08/17/16 10:11 Dose: 50 mg Fluticasone/Salmeterol (Advair Diskus 250/50) 1 puff INH RQ12 [facility] Last Admin: 08/17/16 07:36 Dose: 1 puff Tamsulosin HCl (Flomax) 0.4 mg PO DAILY [facility] Last Admin: 08/17/16 10:08 Dose: 0.4 mg Tiotropium [place] (Spiriva) 18 mcg INH RQ24 [facility] Last Admin: 08/17/16 07:36 Dose: 18 mcg Tramadol HCl (Ultram) 50 mg PO Q6H PRN PRN Reason: back pain Last Admin: 08/17/16 10:08 Dose: 50 mg - Labs Labs: 08/17/16 11:53 08/17/16 11:53
[2016-08-18] MEDS: Levothyroxine 75 MCG TAB PO SCH (05:35)
[2016-08-18] MEDS: (Novolog) Insulin Aspart, Recombinant 100 u/ml 10 ml vial SC SCH ×4 (07:41→21:50)
[2016-08-18] MEDS: Tiotropium 18 mcg Cap For Inhalation INH SCH (08:00)
[2016-08-18] MEDS: Fluticasone-Salmeterol 250-50mcg Diskus INH SCH ×2 (08:10→20:36)
[2016-08-18] MEDS: Pantoprazole 40 mg EC Tab PO SCH (10:54)
[2016-08-18] MEDS: guaiFENesin DM 200 mg-20 mg/10 ml UD PO SCH ×4 (10:55→17:51)
[2016-08-18] MEDS: Calcium Carbonate 500 mg Chewable Antacid Tab PO SCH ×2 (12:12→18:00)
--- NOTE | 2016-08-18 13:20 | CP.PCM.PN ---
Subjective - Date & Time of Evaluation Date of Evaluation: 08/18/16 Time of Evaluation: 12:40 - Subjective Subjective: Patient seen and examined No events overnight Objective - Vital Signs/Intake and Output Vital Signs (last 24 hours): Temp Pulse Resp BP Pulse Ox 98.7 F 77 20 104/64 94 L 08/18/16 07:00 08/18/16 07:00 08/18/16 07:00 08/18/16 07:00 08/18/16 07:00 Intake and Output: 08/18/16 08/18/16 06:59 18:59 Intake Total 600 Balance 600 - Medications Medications: Current Medications Aspirin (Aspirin Chewable) 81 mg PO DAILY [facility] Last Admin: 08/18/16 10:54 Dose: 81 mg Calcium Carbonate (Tums) 500 mg PO BID [facility] Last Admin: 08/18/16 12:12 Dose: Not Given Diphenhydramine HCl (Benadryl) 25 mg PO Q6 PRN PRN Reason: Extra Pyramidal Symptoms Last Admin: 08/11/16 02:27 Dose: 25 mg Ferrous Sulfate (Feosol) 325 mg PO TID [facility] Last Admin: 08/18/16 10:54 Dose: 325 mg Guaifenesin/Dextromethorphan (Robitussin Dm) 10 ml PO TID [facility] Last Admin: 08/18/16 10:55 Dose: 10 ml Haloperidol (Haldol) 2 mg PO Q6 PRN PRN Reason: Moderate Agitation Last Admin: 08/18/16 05:34 Dose: 2 mg Haloperidol Lactate (Haldol) 2 mg IM Q6 PRN PRN Reason: Agitation Last Admin: 08/12/16 02:40 Dose: 2 mg Insulin Aspart (Novolog) 0 unit SC [facility] PRN Reason: Protocol Last Admin: 08/18/16 12:08 Dose: 1 unit Levothyroxine Sodium (Synthroid) 37.5 mcg PO DAILY@0630 [facility] Last Admin: 08/18/16 05:35 Dose: 37.5 mcg Lorazepam (Ativan) 1 mg IM Q6H PRN PRN Reason: Agitation Last Admin: 08/18/16 10:53 Dose: 1 mg Megestrol Acetate (Megace) 40 mg PO DAILY [facility] Last Admin: 08/18/16 10:55 Dose: 40 mg [facility] Last Admin: 08/18/16 07:59 Dose: Not Given Pantoprazole Sodium (Protonix Ec Tab) 40 mg PO DAILY [facility] Last Admin: 08/18/16 10:54 Dose: 40 mg Quetiapine Fumarate (Seroquel) 50 mg PO HS [facility] Last Admin: 08/17/16 21:48 Dose: 50 mg Quetiapine Fumarate (Seroquel) 50 mg PO DAILY [facility] Last Admin: 08/18/16 10:55 Dose: 50 mg Fluticasone/Salmeterol (Advair Diskus 250/50) 1 puff INH RQ12 [facility] Last Admin: 08/18/16 08:10 Dose: Not Given Tamsulosin HCl (Flomax) 0.4 mg PO DAILY [facility] Last Admin: 08/18/16 10:54 Dose: 0.4 mg Tiotropium [place] (Spiriva) 18 mcg INH RQ24 [facility] Last Admin: 08/18/16 08:00 Dose: 18 mcg Tramadol HCl (Ultram) 50 mg PO Q6H PRN PRN Reason: back pain Last Admin: 08/17/16 18:05 Dose: 50 mg - Labs Labs: 08/17/16 11:53 08/17/16 11:53 - Head Exam Head Exam: NORMAL INSPECTION - ENT Exam ENT Exam: Mucous Membranes Moist - Respiratory Exam Respiratory Exam: Prolonged Expiratory Phase - GI/Abdominal Exam GI & Abdominal Exam: Soft, Normal Bowel Sounds - Neurological Exam Neurological Exam: Alert, Oriented x3 Assessment and Plan - Assessment and Plan (Free Text) Assessment: COPD exacerbation Diabetes Abnormal chest x-ray Continue steroids Bronchodilators Advair Accu-check Insulin coverage DVT/GI prophylaxis
[2016-08-19] MEDS: Levothyroxine 75 MCG TAB PO SCH (05:42)
[2016-08-19] MEDS: Fluticasone-Salmeterol 250-50mcg Diskus INH SCH ×2 (08:00→20:16)
[2016-08-19] MEDS: Tiotropium 18 mcg Cap For Inhalation INH SCH (08:00)
[2016-08-19] MEDS: (Novolog) Insulin Aspart, Recombinant 100 u/ml 10 ml vial SC SCH ×5 (09:44→21:40)
[2016-08-19] MEDS: Pantoprazole 40 mg EC Tab PO SCH (09:46)
[2016-08-19] MEDS: guaiFENesin DM 200 mg-20 mg/10 ml UD PO SCH ×2 (12:55→17:36)
[2016-08-19] MEDS: Calcium Carbonate 500 mg Chewable Antacid Tab PO SCH ×2 (13:00→21:41)
--- NOTE | 2016-08-19 19:41 | CP.PCM.PN ---
Subjective - Date & Time of Evaluation Date of Evaluation: 08/19/16 Time of Evaluation: 10:20 - Subjective Subjective: clinically same Objective - Vital Signs/Intake and Output Vital Signs (last 24 hours): Temp Pulse Resp BP Pulse Ox 98.5 F 68 20 135/72 97 08/19/16 16:00 08/19/16 16:00 08/19/16 16:00 08/19/16 16:00 08/19/16 16:00 - Medications Medications: Current Medications Aspirin (Aspirin Chewable) 81 mg PO DAILY [facility] Last Admin: 08/19/16 12:24 Dose: 81 mg Calcium Carbonate (Tums) 500 mg PO BID [facility] Last Admin: 08/19/16 13:00 Dose: 500 mg Diphenhydramine HCl (Benadryl) 25 mg PO Q6 PRN PRN Reason: Extra Pyramidal Symptoms Last Admin: 08/11/16 02:27 Dose: 25 mg Ferrous Sulfate (Feosol) 325 mg PO TID [facility] Last Admin: 08/19/16 17:36 Dose: 325 mg Guaifenesin/Dextromethorphan (Robitussin Dm) 10 ml PO TID [facility] Last Admin: 08/19/16 17:36 Dose: 10 ml Haloperidol (Haldol) 2 mg PO Q6 PRN PRN Reason: Moderate Agitation Last Admin: 08/19/16 12:59 Dose: 2 mg Haloperidol Lactate (Haldol) 2 mg IM Q6 PRN PRN Reason: Agitation Last Admin: 08/12/16 02:40 Dose: 2 mg Insulin Aspart (Novolog) 0 unit SC ACHS [facility] PRN Reason: Protocol Last Admin: 08/19/16 16:30 Dose: 2 unit Levothyroxine Sodium (Synthroid) 37.5 mcg PO DAILY@0630 [facility] Last Admin: 08/19/16 05:42 Dose: 37.5 mcg Metformin HCl (Glucophage) 1,000 mg PO BIDCC [facility] Last Admin: 08/19/16 17:16 Dose: 1,000 mg Pantoprazole Sodium (Protonix Ec Tab) 40 mg PO DAILY [facility] Last Admin: 08/19/16 09:46 Dose: 40 mg Quetiapine Fumarate (Seroquel) 50 mg PO HS [facility] Last Admin: 08/18/16 21:37 Dose: 50 mg Quetiapine Fumarate (Seroquel) 50 mg PO DAILY [facility] Last Admin: 08/19/16 12:59 Dose: 50 mg Fluticasone/Salmeterol (Advair Diskus 250/50) 1 puff INH RQ12 [facility] Last Admin: 08/19/16 08:00 Dose: Not Given Tamsulosin HCl (Flomax) 0.4 mg PO DAILY [facility] Last Admin: 08/19/16 09:46 Dose: 0.4 mg Tiotropium [place] (Spiriva) 18 mcg INH RQ24 [facility] Last Admin: 08/19/16 08:00 Dose: Not Given Tramadol HCl (Ultram) 50 mg PO Q6H PRN PRN Reason: back pain Last Admin: 08/19/16 17:16 Dose: 50 mg - Labs Labs: 08/17/16 11:53 08/17/16 11:53 Assessment and Plan (1) Abnormal CXR (chest x-ray) Status: Acute (2) COPD (chronic obstructive pulmonary disease) Status: Acute (3) COPD exacerbation Status: Acute (4) Cardiac disease Status: Acute (5) Depression Status: Acute (6) Diabetes Status: Acute - Assessment and Plan (Free Text) Plan: jovi liu ordred consults on board conservative rx physical therspy seroquel synthyroid
[2016-08-20] MEDS: Levothyroxine 75 MCG TAB PO SCH (06:00)
[2016-08-20] MEDS: (Novolog) Insulin Aspart, Recombinant 100 u/ml 10 ml vial SC SCH ×3 (08:10→16:47)
[2016-08-20] MEDS: Tiotropium 18 mcg Cap For Inhalation INH SCH (08:23)
[2016-08-20] MEDS: Fluticasone-Salmeterol 250-50mcg Diskus INH SCH ×2 (08:23→19:47)
[2016-08-20] MEDS: Pantoprazole 40 mg EC Tab PO SCH (09:25)
[2016-08-20] MEDS: guaiFENesin DM 200 mg-20 mg/10 ml UD PO SCH ×2 (09:26→18:06)
[2016-08-20] MEDS: Calcium Carbonate 500 mg Chewable Antacid Tab PO SCH ×2 (09:26→18:06)
--- NOTE | 2016-08-20 15:06 | CP.PCM.PN ---
<Nanette Regan - Last Filed: 08/20/16 15:03> Subjective - Date & Time of Evaluation Date of Evaluation: 08/20/16 Time of Evaluation: 09:25 - Subjective Subjective: PGY3 Medicine Note - Dr. Loren Solis's service: Patient seen and examined at bedside. Patient reports many months of low back pain. Patient denies fever, chills, chest pain, SOB. Objective - Vital Signs/Intake and Output Vital Signs (last 24 hours): Temp Pulse Resp BP Pulse Ox 97.6 F 78 20 108/66 96 08/20/16 08:24 08/20/16 08:24 08/20/16 08:24 08/20/16 08:24 08/20/16 08:24 Intake and Output: 08/20/16 08/20/16 06:59 18:59 Intake Total 200 200 Balance 200 200 - Medications Medications: Current Medications Aspirin (Aspirin Chewable) 81 mg PO DAILY [facility] Last Admin: 08/20/16 09:27 Dose: 81 mg Calcium Carbonate (Tums) 500 mg PO BID [facility] Last Admin: 08/20/16 09:26 Dose: 500 mg Diphenhydramine HCl (Benadryl) 25 mg PO Q6 PRN PRN Reason: Extra Pyramidal Symptoms Last Admin: 08/20/16 09:36 Dose: 25 mg Ferrous Sulfate (Feosol) 325 mg PO TID [facility] Last Admin: 08/20/16 14:57 Dose: Not Given Guaifenesin/Dextromethorphan (Robitussin Dm) 10 ml PO TID [facility] Last Admin: 08/20/16 09:26 Dose: 10 ml Haloperidol (Haldol) 2 mg PO Q6 PRN PRN Reason: Moderate Agitation Last Admin: 08/20/16 00:00 Dose: 2 mg Haloperidol Lactate (Haldol) 2 mg IM Q6 PRN PRN Reason: Agitation Last Admin: 08/12/16 02:40 Dose: 2 mg Insulin Aspart (Novolog) 0 unit SC ACHS [facility] PRN Reason: Protocol Last Admin: 08/20/16 13:30 Dose: Not Given Levothyroxine Sodium (Synthroid) 37.5 mcg PO DAILY@0630 [facility] Last Admin: 08/20/16 06:00 Dose: 37.5 mcg Lorazepam (Ativan) 1 mg IM Q6H PRN PRN Reason: Agitation Last Admin: 08/20/16 09:33 Dose: 1 mg Metformin HCl (Glucophage) 1,000 mg PO BIDCC [facility] Last Admin: 08/20/16 09:25 Dose: 1,000 mg Pantoprazole Sodium (Protonix Ec Tab) 40 mg PO DAILY [facility] Last Admin: 08/20/16 09:25 Dose: 40 mg Quetiapine Fumarate (Seroquel) 50 mg PO HS [facility] Last Admin: 08/19/16 22:27 Dose: 50 mg Quetiapine Fumarate (Seroquel) 50 mg PO DAILY [facility] Last Admin: 08/20/16 09:27 Dose: 50 mg Fluticasone/Salmeterol (Advair Diskus 250/50) 1 puff INH RQ12 [facility] Last Admin: 08/20/16 08:23 Dose: Not Given Tamsulosin HCl (Flomax) 0.4 mg PO DAILY [facility] Last Admin: 08/20/16 09:25 Dose: 0.4 mg Tiotropium [place] (Spiriva) 18 mcg INH RQ24 [facility] Last Admin: 08/20/16 08:23 Dose: Not Given Tramadol HCl (Ultram) 50 mg PO Q6H PRN PRN Reason: back pain Last Admin: 08/20/16 09:24 Dose: 50 mg - Labs Labs: 08/17/16 11:53 08/17/16 11:53 - Constitutional Appears: Non-toxic, No Acute Distress, Cachectic - Head Exam Head Exam: NORMAL INSPECTION - Eye Exam Eye Exam: EOMI - ENT Exam ENT Exam: Mucous Membranes Moist - Respiratory Exam Respiratory Exam: Clear to Ausculation Bilateral, NORMAL BREATHING PATTERN. absent: Rales, Rhonchi, Wheezes - Cardiovascular Exam Cardiovascular Exam: REGULAR RHYTHM, +S1, +S2. absent: Gallop, Rubs, Murmur - GI/Abdominal Exam GI & Abdominal Exam: Soft, Normal Bowel Sounds. absent: Tenderness, Hyperactive Bowel Sounds - Extremities Exam Extremities Exam: absent: Pedal Edema - Neurological Exam Neurological Exam: Alert, Awake - Psychiatric Exam Psychiatric exam: Normal Affect, Normal Mood - Skin Skin Exam: Normal Color, Warm Assessment and Plan - Assessment and Plan (Free Text) Assessment: Lumbar back pain 08/20: Ortho and Neurosurgery recommend bed rest and physical therapy No evidence of retropulsion to cord Stable Chronic 08/13: per neurosurgery, Dr. Acuña, patient does not need intervention for L2 fracture 08/12: Ortho PA saw patient today - CT confirms acute appearing L2 compression fracture, no retropulsion seen per report. Ill defined soft tissue density seen , ? edema. Would recommend attempt MRI (unsure if patient will tolerate and cooperate) for further visualization. Neurosurgery Consulted, Dr. Rose. 08/11: Lumbar XRAY - 1. Age indeterminate acute superior endplate compression fracture in the L2 vertebral body with 4 mm retrolisthesis. 2. Mild multilevel degenerative disc disease, worse at L5-S1. see full report. -Consult Ortho, help appreciated - Dr. 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 08/20: Improved mood 08/11: patient now receiving Haldol IM for several days - first day he was AAOx3. 08/10: patient receiving the majority of his medications, sometimes refuses. 08/07: patient refused seroquel last night 08/06: Patient is accepting some medications, but still refusing others 08/05: Patient seen by psychiatry, Dr. Bajwa, help appreciated. Haldol IV: Haldol 2mg IM Q6 PRN 08/04: Re-consult psych for possible medication adjustments, as patient is refusing most PO medications including Haldol. 08/03: All meds per Psychiatry Psych consult - Dr. Galicia - f/u recs Continue Ativan 1mg IVP Q4H PRN agiation Haldol 2mg IM Q6 PRN, agitation Haldol 2mg PO Q6H PRN, moderate agitation Depression 08/20: Monitor 08/10-08/11: patient receiving the majority of his medications, sometimes refuses. 08/06: Patient seen by psychiatry, Dr. Bajwa, help appreciated. 08/03: All meds per Psychiatry 07/30: improving 07/24: Suicidal ideations Psych reconsulted - Dr. Frida alvarado/u recs 07/23: Pending placement 07/22: Patient is pending placement. 07/21 continue current management, add megace for appetite stimulant. Psych Dr. Bajwa consulted, help appreciated. Continue Remeron and Seroquel. Ativan 1mg IVP q4H PRN for agitation. Chest Pain - Resolved JAREK negative EKG with LBBB as prior EKGs have also shown Cardio consult - Dr. Marinelli - help appreciated ECHO - left ventricular is normal size. there is mild to moderate concentric left ventricular hypertrophy. the systolic function is midly to moderately impaired. septal hypokinesis. mild to moderate aortic regurgitation. mild pulmonary hypertension. (please see full report) Nodular opacity in chest Pulm consult - Dr. Hayden - help appreciated Chest CT - extensive bilateral fine nodular interstitial infiltrate both lower lobes. dense pleural based consolidation right lower lobe. subpleural emphysema. mild centrilobular pulmonary emphysema. left upper lobe nodules. 7mm and 9mm. reccomend f/u noncontrast chest CT in 3 months. Multiple left upper lobe nodular calcifications, likely granulomatous. probable small airways disease posterior right upper lobe. findings are nonspecific and may reflect infection or inflammatory disease. Patient needs to f/u outpatient per Dr. Hayden for nodular opacity in chest + COPD. COPD Pulm consult - Dr. Hayden - help appreciated Advair and Spiriva DM 08/10-08/12: WNL, stable. Continue to monitor. RISS, accuchecks. Lantus 10U SC HS, Metformin Hypothyroid Continue synthroid. Hx of cardiac disease Continue Eliquis, ASA, Crestor. Prophylactic measure eliquis, Protonix. Social work referral. -Labs ordered MW. -PT rec -> DAPHNEY Disposition Pending rehab placement, patient denied at [facility] but can be re-eval next week All Medical Management per Dr. Solis <Perla Solis S - Last Filed: 08/20/16 22:47> Objective - Vital Signs/Intake and Output Vital Signs (last 24 hours): Temp Pulse Resp BP Pulse Ox 98.1 F 74 20 105/70 99 08/20/16 16:00 08/20/16 16:00 08/20/16 16:00 08/20/16 16:00 08/20/16 16:00 Intake and Output: 08/20/16 08/21/16 18:59 06:59 Intake Total 200 Balance 200 - Medications Medications: Current Medications Aspirin (Aspirin Chewable) 81 mg PO DAILY [facility] Last Admin: 08/20/16 09:27 Dose: 81 mg Calcium Carbonate (Tums) 500 mg PO BID [facility] Last Admin: 08/20/16 18:06 Dose: 500 mg Diphenhydramine HCl (Benadryl) 25 mg PO Q6 PRN PRN Reason: Extra Pyramidal Symptoms Last Admin: 08/20/16 09:36 Dose: 25 mg Ferrous Sulfate (Feosol) 325 mg PO TID [facility] Last Admin: 08/20/16 18:06 Dose: 325 mg Guaifenesin/Dextromethorphan (Robitussin Dm) 10 ml PO TID [facility] Last Admin: 08/20/16 18:06 Dose: 10 ml Haloperidol (Haldol) 2 mg PO Q6 PRN PRN Reason: Moderate Agitation Last Admin: 08/20/16 00:00 Dose: 2 mg Haloperidol Lactate (Haldol) 2 mg IM Q6 PRN PRN Reason: Agitation Last Admin: 08/12/16 02:40 Dose: 2 mg Insulin Aspart (Novolog) 0 unit SC ACHS [facility] PRN Reason: Protocol Last Admin: 08/20/16 16:47 Dose: Not Given Levothyroxine Sodium (Synthroid) 37.5 mcg PO DAILY@0630 [facility] Last Admin: 08/20/16 06:00 Dose: 37.5 mcg Lorazepam (Ativan) 1 mg IM Q6H PRN PRN Reason: Agitation Last Admin: 08/20/16 20:08 Dose: 1 mg Metformin HCl (Glucophage) 1,000 mg PO BIDCC [facility] Last Admin: 08/20/16 16:46 Dose: 1,000 mg Pantoprazole Sodium (Protonix Ec Tab) 40 mg PO DAILY [facility] Last Admin: 08/20/16 09:25 Dose: 40 mg Quetiapine Fumarate (Seroquel) 50 mg PO HS [facility] Last Admin: 08/20/16 21:39 Dose: Not Given Quetiapine Fumarate (Seroquel) 50 mg PO DAILY [facility] Last Admin: 08/20/16 09:27 Dose: 50 mg Fluticasone/Salmeterol (Advair Diskus 250/50) 1 puff INH RQ12 [facility] Last Admin: 08/20/16 19:47 Dose: Not Given Tamsulosin HCl (Flomax) 0.4 mg PO DAILY [facility] Last Admin: 08/20/16 09:25 Dose: 0.4 mg Tiotropium [place] (Spiriva) 18 mcg INH RQ24 [facility] Last Admin: 08/20/16 08:23 Dose: Not Given Tramadol HCl (Ultram) 50 mg PO Q6H PRN PRN Reason: back pain Last Admin: 08/20/16 09:24 Dose: 50 mg - Labs Labs: 08/17/16 11:53 08/17/16 11:53 Assessment and Plan (1) Abnormal CXR (chest x-ray) Status: Acute (2) COPD (chronic obstructive pulmonary disease) Status: Acute (3) COPD exacerbation Status: Acute (4) Cardiac disease Status: Acute (5) Depression Status: Acute (6) Diabetes Status: Acute Attending/Attestation - Attestation I have personally seen and examined this patient.: Yes I have fully participated in the care of the patient.: Yes I have reviewed all pertinent clinical information, including history, physical exam and plan: Yes Notes (Text): 08/20/16 22:46 Case seen and discussed with the staff and resident patient is more calm quiet patient was seen by orthopedic and consultations continue same Awaiting for subacute rehab
--- NOTE | 2016-08-20 15:30 | CP.PCM.PN ---
Subjective - Date & Time of Evaluation Date of Evaluation: 08/20/16 Time of Evaluation: 07:00 - Subjective Subjective: clinically same Objective - Vital Signs/Intake and Output Vital Signs (last 24 hours): Temp Pulse Resp BP Pulse Ox 97.6 F 78 20 108/66 96 08/20/16 08:24 08/20/16 08:24 08/20/16 08:24 08/20/16 08:24 08/20/16 08:24 Intake and Output: 08/20/16 08/20/16 06:59 18:59 Intake Total 200 200 Balance 200 200 - Medications Medications: Current Medications Aspirin (Aspirin Chewable) 81 mg PO DAILY [facility] Last Admin: 08/20/16 09:27 Dose: 81 mg Calcium Carbonate (Tums) 500 mg PO BID [facility] Last Admin: 08/20/16 09:26 Dose: 500 mg Diphenhydramine HCl (Benadryl) 25 mg PO Q6 PRN PRN Reason: Extra Pyramidal Symptoms Last Admin: 08/20/16 09:36 Dose: 25 mg Ferrous Sulfate (Feosol) 325 mg PO TID [facility] Last Admin: 08/20/16 14:57 Dose: Not Given Guaifenesin/Dextromethorphan (Robitussin Dm) 10 ml PO TID [facility] Last Admin: 08/20/16 09:26 Dose: 10 ml Haloperidol (Haldol) 2 mg PO Q6 PRN PRN Reason: Moderate Agitation Last Admin: 08/20/16 00:00 Dose: 2 mg Haloperidol Lactate (Haldol) 2 mg IM Q6 PRN PRN Reason: Agitation Last Admin: 08/12/16 02:40 Dose: 2 mg Insulin Aspart (Novolog) 0 unit SC [facility] PRN Reason: Protocol Last Admin: 08/20/16 13:30 Dose: Not Given Levothyroxine Sodium (Synthroid) 37.5 mcg PO DAILY@0630 [facility] Last Admin: 08/20/16 06:00 Dose: 37.5 mcg Lorazepam (Ativan) 1 mg IM Q6H PRN PRN Reason: Agitation Last Admin: 08/20/16 09:33 Dose: 1 mg [facility] Last Admin: 08/20/16 09:25 Dose: 1,000 mg Pantoprazole Sodium (Protonix Ec Tab) 40 mg PO DAILY [facility] Last Admin: 08/20/16 09:25 Dose: 40 mg Quetiapine Fumarate (Seroquel) 50 mg PO HS [facility] Last Admin: 08/19/16 22:27 Dose: 50 mg Quetiapine Fumarate (Seroquel) 50 mg PO DAILY [facility] Last Admin: 08/20/16 09:27 Dose: 50 mg Fluticasone/Salmeterol (Advair Diskus 250/50) 1 puff INH RQ12 [facility] Last Admin: 08/20/16 08:23 Dose: Not Given Tamsulosin HCl (Flomax) 0.4 mg PO DAILY [facility] Last Admin: 08/20/16 09:25 Dose: 0.4 mg Tiotropium [place] (Spiriva) 18 mcg INH RQ24 [facility] Last Admin: 08/20/16 08:23 Dose: Not Given Tramadol HCl (Ultram) 50 mg PO Q6H PRN PRN Reason: back pain Last Admin: 08/20/16 09:24 Dose: 50 mg - Labs Labs: 08/17/16 11:53 08/17/16 11:53 - Constitutional Appears: Well - Eye Exam Eye Exam: EOMI, Normal appearance, PERRL Pupil Exam: NORMAL ACCOMODATION, PERRL - ENT Exam ENT Exam: Mucous Membranes Moist, Normal Exam - Neck Exam Neck Exam: Full ROM - Respiratory Exam Respiratory Exam: Decreased Breath Sounds - Cardiovascular Exam Cardiovascular Exam: REGULAR RHYTHM, +S1, +S2 - GI/Abdominal Exam GI & Abdominal Exam: Distended, Soft - Rectal Exam Rectal Exam: Deferred Assessment and Plan (1) Abnormal CXR (chest x-ray) Status: Acute (2) COPD (chronic obstructive pulmonary disease) Status: Acute (3) COPD exacerbation Status: Acute (4) Cardiac disease Status: Acute (5) Depression Status: Acute (6) Diabetes Status: Acute - Assessment and Plan (Free Text) Plan: Continue same status post neurosurgery status post orthopedic surgery PT OT patient was calm, still waiting for subacute placement
[2016-08-21] MEDS: Levothyroxine 75 MCG TAB PO SCH (06:12)
[2016-08-21 07:44] LABS: BASO % 0.4 % (0.0-2.0); EOS # 0.1 K/uL (0.0-0.7); EOS % 0.9 % (0.0-4.0); HEMATOCRIT 34.5 % (35.0-51.0); LYMPH # 1.8 K/uL (1.0-4.3); LYMPH % 16.5 % (20.0-40.0); MEAN CELL VOLUME 83.7 fL (80.0-94.0); MEAN CORPUSCULAR HEMOGLOBIN 26.8 pg (27.0-31.0); MEAN PLATELET VOLUME 9.1 fL (7.2-11.7); MONO # 0.8 K/uL (0.0-0.8); MONO % 7.3 % (0.0-10.0); RED CELL DISTRIBUTION WIDTH 18.3 % (11.5-14.5)
[2016-08-21] MEDS: Fluticasone-Salmeterol 250-50mcg Diskus INH SCH (07:50)
[2016-08-21] MEDS: Tiotropium 18 mcg Cap For Inhalation INH SCH (07:50)
[2016-08-21 07:57] LABS: CHLORIDE 107 mmol/L (98-107); POTASSIUM 3.7 mmol/L (3.6-5.2); SODIUM 139 mmol/L (132-148)
[2016-08-21 07:59] LABS: AST/SGOT 14 U/L (17-59); BILIRUBIN,TOTAL 0.5 mg/dL (0.2-1.3); BLOOD UREA NITROGEN 22 mg/dL (9-20); CARBON DIOXIDE 22 mmol/L (22-30); GFR AFRICAN-AMERICAN > 60; TOTAL PROTEIN 6.2 g/dL (6.3-8.3)
[2016-08-21 08:00] LABS: ALKALINE PHOSPHATASE 69 U/L (38-126); ALT/SGPT 13 U/L (21-72); CALCIUM 8.8 mg/dl (8.6-10.4); GLUCOSE,RANDOM 101 mg/dL (75-110)
[2016-08-21] MEDS: (Novolog) Insulin Aspart, Recombinant 100 u/ml 10 ml vial SC SCH ×4 (09:56→21:38)
--- NOTE | 2016-08-21 10:12 | CP.PCM.PN ---
Subjective - Date & Time of Evaluation Date of Evaluation: 08/21/16 Time of Evaluation: 08:00 - Subjective Subjective: PGY3 Medicine Note - Dr. Loren Solis's service: Patient seen and examined at bedside this AM. Patient is awake and alert, but only oriented to self. He was calling for his mother earlier this morning. He admits to diffuse body pain, but is otherwise resting comfortably. No acute events overnight. Objective - Vital Signs/Intake and Output Vital Signs (last 24 hours): Temp Pulse Resp BP Pulse Ox 98.4 F 70 20 108/65 97 08/21/16 07:00 08/21/16 07:00 08/21/16 07:00 08/21/16 07:00 08/21/16 07:00 Intake and Output: 08/21/16 08/21/16 06:59 18:59 Intake Total 120 Balance 120 - Medications Medications: Current Medications Aspirin (Aspirin Chewable) 81 mg PO DAILY [facility] Last Admin: 08/21/16 09:54 Dose: 81 mg Calcium Carbonate (Tums) 500 mg PO BID [facility] Last Admin: 08/20/16 18:06 Dose: 500 mg Diphenhydramine HCl (Benadryl) 25 mg PO Q6 PRN PRN Reason: Extra Pyramidal Symptoms Last Admin: 08/20/16 09:36 Dose: 25 mg Ferrous Sulfate (Feosol) 325 mg PO TID [facility] Last Admin: 08/21/16 09:55 Dose: 325 mg Guaifenesin/Dextromethorphan (Robitussin Dm) 10 ml PO TID [facility] Last Admin: 08/20/16 18:06 Dose: 10 ml Haloperidol (Haldol) 2 mg PO Q6 PRN PRN Reason: Moderate Agitation Last Admin: 08/21/16 05:23 Dose: 2 mg Haloperidol Lactate (Haldol) 2 mg IM Q6 PRN PRN Reason: Agitation Last Admin: 08/12/16 02:40 Dose: 2 mg Insulin Aspart (Novolog) 0 unit SC ACHS [facility] PRN Reason: Protocol Last Admin: 08/21/16 09:56 Dose: Not Given Levothyroxine Sodium (Synthroid) 37.5 mcg PO DAILY@0630 [facility] Last Admin: 08/21/16 06:12 Dose: Not Given Lorazepam (Ativan) 1 mg IM Q6H PRN PRN Reason: Agitation Last Admin: 08/21/16 04:01 Dose: 1 mg Metformin HCl (Glucophage) 1,000 mg PO BIDCC [facility] Last Admin: 08/21/16 09:55 Dose: 1,000 mg Pantoprazole Sodium (Protonix Ec Tab) 40 mg PO DAILY [facility] Last Admin: 08/20/16 09:25 Dose: 40 mg Quetiapine Fumarate (Seroquel) 50 mg PO HS [facility] Last Admin: 08/20/16 21:39 Dose: Not Given Quetiapine Fumarate (Seroquel) 50 mg PO DAILY [facility] Last Admin: 08/20/16 09:27 Dose: 50 mg Fluticasone/Salmeterol (Advair Diskus 250/50) 1 puff INH RQ12 [facility] Last Admin: 08/21/16 07:50 Dose: Not Given Tamsulosin HCl (Flomax) 0.4 mg PO DAILY [facility] Last Admin: 08/21/16 09:55 Dose: 0.4 mg Tiotropium [place] (Spiriva) 18 mcg INH RQ24 [facility] Last Admin: 08/21/16 07:50 Dose: Not Given Tramadol HCl (Ultram) 50 mg PO Q6H PRN PRN Reason: back pain Last Admin: 08/20/16 09:24 Dose: 50 mg - Labs Labs: 08/21/16 07:31 08/21/16 07:31 - Constitutional Appears: No Acute Distress, Cachectic, Chronically Ill - Head Exam Head Exam: NORMAL INSPECTION, NORMOCEPHALIC - Eye Exam Eye Exam: EOMI, Normal appearance - ENT Exam ENT Exam: Mucous Membranes Moist - Neck Exam Neck Exam: Full ROM, Normal Inspection - Respiratory Exam Respiratory Exam: Clear to Ausculation Bilateral, NORMAL BREATHING PATTERN - Cardiovascular Exam Cardiovascular Exam: REGULAR RHYTHM, +S1, +S2 - GI/Abdominal Exam GI & Abdominal Exam: Soft. absent: Distended, Tenderness - Extremities Exam Extremities Exam: Full ROM. absent: Pedal Edema, Tenderness - Neurological Exam Neurological Exam: Alert, Altered, Awake. absent: Oriented x3 - Psychiatric Exam Psychiatric exam: Normal Affect, Normal Mood - Skin Skin Exam: Dry, Normal Color Assessment and Plan - Assessment and Plan (Free Text) Assessment: Lumbar back pain 08/21: Ortho and Neurosurgery recommend bed rest and physical therapy No evidence of retropulsion to cord. Stable. Chronic 08/13: per neurosurgery, Dr. Acuña, patient does not need intervention for L2 fracture 08/12: Ortho PA saw patient today - CT confirms acute appearing L2 compression fracture, no retropulsion seen per report. Ill defined soft tissue density seen , ? edema. Would recommend attempt MRI (unsure if patient will tolerate and cooperate) for further visualization. * Neurosurgery Consulted, Dr. Rose. 08/11: Lumbar XRAY - 1. Age indeterminate acute superior endplate compression fracture in the L2 vertebral body with 4 mm retrolisthesis. 2. Mild multilevel degenerative disc disease, worse at L5-S1. see full report. * Consult Ortho, help appreciated - Dr. 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 08/21: Improved mood 08/11: patient now receiving Haldol IM for several days - first day he was AAOx3. 08/10: patient receiving the majority of his medications, sometimes refuses. 08/07: patient refused seroquel last night 08/06: Patient is accepting some medications, but still refusing others 08/05: Patient seen by psychiatry, Dr. Bajwa, help appreciated. Haldol IV: Haldol 2mg IM Q6 PRN 08/04: Re-consult psych for possible medication adjustments, as patient is refusing most PO medications including Haldol. 08/03: All meds per Psychiatry Psych consult - Dr. Galicia - f/u recs Continue Ativan 1mg IVP Q4H PRN agiation Haldol 2mg IM Q6 PRN, agitation Haldol 2mg PO Q6H PRN, moderate agitation Depression 08/21: No SI/HI. Monitor Psych Dr. Bajwa consulted, help appreciated. Continue Remeron and Seroquel. Ativan 1mg IVP q4H PRN for agitation. Seroquel 50 PO daily and HS. Chest Pain Resolved JAREK negative EKG with LBBB as prior EKGs have also shown Cardio consult - Dr. Marinelli - help appreciated ECHO - left ventricular is normal size. there is mild to moderate concentric left ventricular hypertrophy. the systolic function is midly to moderately impaired. septal hypokinesis. mild to moderate aortic regurgitation. mild pulmonary hypertension. (please see full report) Nodular opacity in chest Pulm consult - Dr. Hayden - help appreciated Chest CT - extensive bilateral fine nodular interstitial infiltrate both lower lobes. dense pleural based consolidation right lower lobe. subpleural emphysema. mild centrilobular pulmonary emphysema. left upper lobe nodules. 7mm and 9mm. reccomend f/u noncontrast chest CT in 3 months. Multiple left upper lobe nodular calcifications, likely granulomatous. probable small airways disease posterior right upper lobe. findings are nonspecific and may reflect infection or inflammatory disease. Patient needs to f/u outpatient per Dr. Hayden for nodular opacity in chest + COPD. COPD Pulm consult - Dr. Hayden - help appreciated Advair and Spiriva DM RISS, accuchecks. Lantus 10U SC HS, Metformin Hypothyroid Continue synthroid. Hx of cardiac disease Continue Eliquis, ASA, Crestor. Prophylactic measure Protonix 40 mg PO daily Eliquis 2.5 mg Po BID Social work referral. -Labs ordered MW. -PT rec -> DAPHNEY Disposition Pending rehab placement, patient denied at [facility] but can be re-eval next week All Medical Management per Dr. Solis
--- NOTE | 2016-08-21 12:34 | CP.PCM.PN ---
Subjective - Date & Time of Evaluation Date of Evaluation: 08/21/16 Time of Evaluation: 07:00 - Subjective Subjective: clinically same Objective - Vital Signs/Intake and Output Vital Signs (last 24 hours): Temp Pulse Resp BP Pulse Ox 98.4 F 70 20 108/65 97 08/21/16 07:00 08/21/16 07:00 08/21/16 07:00 08/21/16 07:00 08/21/16 07:00 Intake and Output: 08/21/16 08/21/16 06:59 18:59 Intake Total 120 Balance 120 - Medications Medications: Current Medications Aspirin (Aspirin Chewable) 81 mg PO DAILY [facility] Last Admin: 08/21/16 09:54 Dose: 81 mg Calcium Carbonate (Tums) 500 mg PO BID [facility] Last Admin: 08/20/16 18:06 Dose: 500 mg Diphenhydramine HCl (Benadryl) 25 mg PO Q6 PRN PRN Reason: Extra Pyramidal Symptoms Last Admin: 08/20/16 09:36 Dose: 25 mg Ferrous Sulfate (Feosol) 325 mg PO TID [facility] Last Admin: 08/21/16 09:55 Dose: 325 mg Guaifenesin/Dextromethorphan (Robitussin Dm) 10 ml PO TID [facility] Last Admin: 08/20/16 18:06 Dose: 10 ml Haloperidol (Haldol) 2 mg PO Q6 PRN PRN Reason: Moderate Agitation Last Admin: 08/21/16 05:23 Dose: 2 mg Haloperidol Lactate (Haldol) 2 mg IM Q6 PRN PRN Reason: Agitation Last Admin: 08/12/16 02:40 Dose: 2 mg Insulin Aspart (Novolog) 0 unit SC [facility] PRN Reason: Protocol Last Admin: 08/21/16 09:56 Dose: Not Given Levothyroxine Sodium (Synthroid) 37.5 mcg PO DAILY@0630 [facility] Last Admin: 08/21/16 06:12 Dose: Not Given Lorazepam (Ativan) 1 mg IM Q6H PRN PRN Reason: Agitation Last Admin: 08/21/16 04:01 Dose: 1 mg [facility] Admin: 08/21/16 09:55 Dose: 1,000 mg Pantoprazole Sodium (Protonix Ec Tab) 40 mg PO DAILY [facility] Last Admin: 08/20/16 09:25 Dose: 40 mg Quetiapine Fumarate (Seroquel) 50 mg PO HS [facility] Last Admin: 08/20/16 21:39 Dose: Not Given Quetiapine Fumarate (Seroquel) 50 mg PO DAILY [facility] Last Admin: 08/20/16 09:27 Dose: 50 mg Rosuvastatin Calcium (Crestor) 5 mg PO HS [facility] Fluticasone/Salmeterol (Advair Diskus 250/50) 1 puff INH RQ12 [facility] Last Admin: 08/21/16 07:50 Dose: Not Given Tamsulosin HCl (Flomax) 0.4 mg PO DAILY [facility] Last Admin: 08/21/16 09:55 Dose: 0.4 mg Tiotropium [place] (Spiriva) 18 mcg INH RQ24 [facility] Last Admin: 08/21/16 07:50 Dose: Not Given Tramadol HCl (Ultram) 50 mg PO Q6H PRN PRN Reason: back pain Last Admin: 08/20/16 09:24 Dose: 50 mg - Labs Labs: 08/21/16 07:31 08/21/16 07:31 - Constitutional Appears: Well - Head Exam Head Exam: ATRAUMATIC, NORMAL INSPECTION, NORMOCEPHALIC - Eye Exam Eye Exam: EOMI, Normal appearance, PERRL Pupil Exam: NORMAL ACCOMODATION, PERRL - ENT Exam ENT Exam: Mucous Membranes Moist, Normal Exam - Neck Exam Neck Exam: Full ROM, Normal Inspection. absent: Lymphadenopathy - Respiratory Exam Respiratory Exam: Decreased Breath Sounds - Cardiovascular Exam Cardiovascular Exam: REGULAR RHYTHM, +S1, +S2 - GI/Abdominal Exam GI & Abdominal Exam: Soft, Diminished Bowel Sounds - Rectal Exam Rectal Exam: Deferred Assessment and Plan (1) Abnormal CXR (chest x-ray) Status: Acute (2) COPD (chronic obstructive pulmonary disease) Status: Acute (3) COPD exacerbation Status: Acute (4) Cardiac disease Status: Acute (5) Depression Status: Acute (6) Diabetes Status: Acute - Assessment and Plan (Free Text) Plan: mood improved diffuse body pain disoriented ortho neurosx on board bed rest PT OT
[2016-08-21] MEDS: guaiFENesin DM 200 mg-20 mg/10 ml UD PO SCH ×3 (12:56→17:15)
[2016-08-21] MEDS: Calcium Carbonate 500 mg Chewable Antacid Tab PO SCH ×2 (12:56→17:15)
[2016-08-21] MEDS: Pantoprazole 40 mg EC Tab PO SCH (12:57)
[2016-08-22] MEDS: (Novolog) Insulin Aspart, Recombinant 100 u/ml 10 ml vial SC SCH ×4 (08:57→21:42)
[2016-08-22] MEDS: Fluticasone-Salmeterol 250-50mcg Diskus INH SCH ×2 (09:35→20:05)
[2016-08-22] MEDS: Tiotropium 18 mcg Cap For Inhalation INH SCH (09:35)
[2016-08-22] MEDS: Calcium Carbonate 500 mg Chewable Antacid Tab PO SCH ×3 (10:40→19:46)
[2016-08-22] MEDS: Pantoprazole 40 mg EC Tab PO SCH (10:41)
[2016-08-22] MEDS: guaiFENesin DM 200 mg-20 mg/10 ml UD PO SCH ×4 (10:42→19:28)
--- NOTE | 2016-08-22 14:19 | CP.PCM.PN ---
Subjective - Date & Time of Evaluation Date of Evaluation: 08/22/16 Time of Evaluation: 07:00 - Subjective Subjective: clinically same Objective - Vital Signs/Intake and Output Vital Signs (last 24 hours): Temp Pulse Resp BP Pulse Ox 96.3 F L 60 18 111/77 98 08/21/16 23:11 08/21/16 23:11 08/21/16 23:11 08/21/16 23:11 08/21/16 23:11 Intake and Output: 08/22/16 08/22/16 06:59 18:59 Intake Total 50 Balance 50 - Medications Medications: Current Medications Apixaban (Eliquis) 2.5 mg PO BID [facility] Last Admin: 08/21/16 17:51 Dose: 2.5 mg Aspirin (Aspirin Chewable) 81 mg PO DAILY [facility] Last Admin: 08/22/16 10:40 Dose: 81 mg Calcium Carbonate (Tums) 500 mg PO BID [facility] Last Admin: 08/22/16 10:40 Dose: 500 mg Diphenhydramine HCl (Benadryl) 25 mg PO Q6 PRN PRN Reason: Extra Pyramidal Symptoms Last Admin: 08/20/16 09:36 Dose: 25 mg Ferrous Sulfate (Feosol) 325 mg PO TID [facility] Last Admin: 08/22/16 10:41 Dose: 325 mg Guaifenesin/Dextromethorphan (Robitussin Dm) 10 ml PO TID [facility] Last Admin: 08/22/16 10:42 Dose: 10 ml Haloperidol (Haldol) 2 mg PO Q6 PRN PRN Reason: Moderate Agitation Last Admin: 08/22/16 10:40 Dose: 2 mg Haloperidol Lactate (Haldol) 2 mg IM Q6 PRN PRN Reason: Agitation Last Admin: 08/22/16 02:07 Dose: 2 mg Insulin Aspart (Novolog) 0 unit SC [facility] PRN Reason: Protocol Last Admin: 08/22/16 13:51 Dose: Not Given Levothyroxine Sodium (Synthroid) 37.5 mcg PO DAILY@0630 [facility] Last Admin: 08/21/16 06:12 Dose: Not Given Lorazepam (Ativan) 1 mg IM Q6H PRN PRN Reason: Agitation Last Admin: 08/21/16 04:01 Dose: 1 [facility] Admin: 08/22/16 10:40 Dose: 1,000 mg Pantoprazole Sodium (Protonix Ec Tab) 40 mg PO DAILY [facility] Last Admin: 08/22/16 10:41 Dose: 40 mg Quetiapine Fumarate (Seroquel) 50 mg PO HS [facility] Last Admin: 08/21/16 21:38 Dose: 50 mg Quetiapine Fumarate (Seroquel) 50 mg PO DAILY [facility] Last Admin: 08/22/16 10:43 Dose: 50 mg Rosuvastatin Calcium (Crestor) 5 mg PO HS [facility] Last Admin: 08/21/16 21:37 Dose: 5 mg Fluticasone/Salmeterol (Advair Diskus 250/50) 1 puff INH RQ12 [facility] Last Admin: 08/22/16 09:35 Dose: Not Given Tamsulosin HCl (Flomax) 0.4 mg PO DAILY [facility] Last Admin: 08/22/16 10:41 Dose: 0.4 mg Tiotropium [place] (Spiriva) 18 mcg INH RQ24 [facility] Last Admin: 08/22/16 09:35 Dose: Not Given Tramadol HCl (Ultram) 50 mg PO Q6H PRN PRN Reason: back pain Last Admin: 08/21/16 21:50 Dose: 50 mg - Labs Labs: 08/21/16 07:31 08/21/16 07:31 - Constitutional Appears: Well - Head Exam Head Exam: ATRAUMATIC, NORMAL INSPECTION, NORMOCEPHALIC - Eye Exam Eye Exam: EOMI, Normal appearance, PERRL Pupil Exam: NORMAL ACCOMODATION, PERRL - ENT Exam ENT Exam: Mucous Membranes Moist, Normal Exam - Neck Exam Neck Exam: Full ROM, Normal Inspection. absent: Lymphadenopathy - Respiratory Exam Respiratory Exam: Decreased Breath Sounds - Cardiovascular Exam Cardiovascular Exam: REGULAR RHYTHM, +S1, +S2 - GI/Abdominal Exam GI & Abdominal Exam: Soft, Diminished Bowel Sounds - Rectal Exam Rectal Exam: Deferred Assessment and Plan (1) Abnormal CXR (chest x-ray) Status: Acute (2) COPD (chronic obstructive pulmonary disease) Status: Acute (3) COPD exacerbation Status: Acute (4) Cardiac disease Status: Acute (5) Depression Status: Acute (6) Diabetes Status: Acute - Assessment and Plan (Free Text) Plan: pt improving cnti as ordered neuro on board haldol accucheck insulin
[2016-08-23] MEDS: Levothyroxine 75 MCG TAB PO SCH (05:57)
[2016-08-23] MEDS: guaiFENesin DM 200 mg-20 mg/10 ml UD PO SCH ×3 (09:17→18:08)
[2016-08-23] MEDS: Fluticasone-Salmeterol 250-50mcg Diskus INH SCH ×2 (09:17→20:09)
[2016-08-23] MEDS: (Novolog) Insulin Aspart, Recombinant 100 u/ml 10 ml vial SC SCH ×4 (09:17→21:41)
[2016-08-23] MEDS: Calcium Carbonate 500 mg Chewable Antacid Tab PO SCH ×2 (09:17→18:00)
[2016-08-23] MEDS: Tiotropium 18 mcg Cap For Inhalation INH SCH (09:17)
[2016-08-23] MEDS: Pantoprazole 40 mg EC Tab PO SCH (09:17)
--- NOTE | 2016-08-23 20:50 | CP.PCM.PN ---
Subjective - Date & Time of Evaluation Date of Evaluation: 08/23/16 Time of Evaluation: 07:00 - Subjective Subjective: clinically same Objective - Vital Signs/Intake and Output Vital Signs (last 24 hours): Temp Pulse Resp BP Pulse Ox 97.4 F L 87 20 107/65 97 08/23/16 15:36 08/23/16 15:36 08/23/16 15:36 08/23/16 15:36 08/23/16 15:36 Intake and Output: 08/23/16 08/24/16 18:59 06:59 Intake Total 60 Balance 60 - Medications Medications: Current Medications Apixaban (Eliquis) 2.5 mg PO BID [facility] Last Admin: 08/23/16 18:07 Dose: 2.5 mg Aspirin (Aspirin Chewable) 81 mg PO DAILY [facility] Last Admin: 08/23/16 09:16 Dose: 81 mg Calcium Carbonate (Tums) 500 mg PO BID [facility] Last Admin: 08/23/16 09:17 Dose: 500 mg Diphenhydramine HCl (Benadryl) 25 mg PO Q6 PRN PRN Reason: Extra Pyramidal Symptoms Last Admin: 08/20/16 09:36 Dose: 25 mg Ferrous Sulfate (Feosol) 325 mg PO TID [facility] Last Admin: 08/23/16 18:07 Dose: 325 mg Guaifenesin/Dextromethorphan (Robitussin Dm) 10 ml PO TID [facility] Last Admin: 08/23/16 18:08 Dose: 10 ml Haloperidol (Haldol) 2 mg PO Q6 PRN PRN Reason: Moderate Agitation Last Admin: 08/23/16 00:11 Dose: 2 mg Haloperidol Lactate (Haldol) 2 mg IM Q6 PRN PRN Reason: Agitation Last Admin: 08/22/16 02:07 Dose: 2 mg Insulin Aspart (Novolog) 0 unit SC [facility] PRN Reason: Protocol Last Admin: 08/23/16 16:30 Dose: 1 unit Levothyroxine Sodium (Synthroid) 37.5 mcg PO DAILY@0630 [facility] Last Admin: 08/23/16 05:57 Dose: 37.5 mcg Lorazepam (Ativan) 1 mg IM Q6H PRN PRN Reason: Agitation Last Admin: 08/23/16 08:23 Dose: 1 mg [facility] Last Admin: 08/23/16 17:00 Dose: 1,000 mg Pantoprazole Sodium (Protonix Ec Tab) 40 mg PO DAILY [facility] Last Admin: 08/23/16 09:17 Dose: 40 mg Quetiapine Fumarate (Seroquel) 50 mg PO HS [facility] Last Admin: 08/22/16 23:27 Dose: 50 mg Quetiapine Fumarate (Seroquel) 50 mg PO DAILY [facility] Last Admin: 08/23/16 09:17 Dose: 50 mg Rosuvastatin Calcium (Crestor) 5 mg PO HS [facility] Last Admin: 08/22/16 23:27 Dose: 5 mg Fluticasone/Salmeterol (Advair Diskus 250/50) 1 puff INH RQ12 [facility] Last Admin: 08/23/16 20:09 Dose: Not Given Tamsulosin HCl (Flomax) 0.4 mg PO DAILY [facility] Last Admin: 08/23/16 09:17 Dose: 0.4 mg Tiotropium [place] (Spiriva) 18 mcg INH RQ24 [facility] Last Admin: 08/23/16 09:17 Dose: Not Given Tramadol HCl (Ultram) 50 mg PO Q6H PRN PRN Reason: back pain Last Admin: 08/23/16 18:10 Dose: 50 mg - Labs Labs: 08/21/16 07:31 08/21/16 07:31 - Constitutional Appears: Well - Head Exam Head Exam: ATRAUMATIC, NORMAL INSPECTION, NORMOCEPHALIC - Eye Exam Eye Exam: EOMI, Normal appearance, PERRL Pupil Exam: NORMAL ACCOMODATION, PERRL - ENT Exam ENT Exam: Mucous Membranes Moist, Normal Exam - Neck Exam Neck Exam: Full ROM, Normal Inspection. absent: Lymphadenopathy - Respiratory Exam Respiratory Exam: Decreased Breath Sounds - Cardiovascular Exam Cardiovascular Exam: REGULAR RHYTHM, +S1, +S2 - GI/Abdominal Exam GI & Abdominal Exam: Soft, Diminished Bowel Sounds - Rectal Exam Rectal Exam: Deferred Assessment and Plan (1) Abnormal CXR (chest x-ray) Status: Acute (2) COPD (chronic obstructive pulmonary disease) Status: Acute (3) COPD exacerbation Status: Acute (4) Cardiac disease Status: Acute (5) Depression Status: Acute (6) Diabetes Status: Acute - Assessment and Plan (Free Text) Plan: jovi as orderded labs reviewed haldol consults aspirin seroquel eliquis
[2016-08-24] MEDS: Levothyroxine 75 MCG TAB PO SCH (05:42)
[2016-08-24] MEDS: Pantoprazole 40 mg EC Tab PO SCH ×2 (08:28→13:13)
[2016-08-24] MEDS: (Novolog) Insulin Aspart, Recombinant 100 u/ml 10 ml vial SC SCH ×4 (08:28→21:41)
[2016-08-24] MEDS: guaiFENesin DM 200 mg-20 mg/10 ml UD PO SCH ×3 (08:29→17:40)
[2016-08-24] MEDS: Calcium Carbonate 500 mg Chewable Antacid Tab PO SCH ×3 (08:29→19:42)
[2016-08-24 08:48] LABS: CHLORIDE 107 mmol/L (98-107); SODIUM 142 mmol/L (132-148)
[2016-08-24 08:49] LABS: POTASSIUM 4.7 mmol/L (3.6-5.2)
[2016-08-24 08:50] LABS: GFR AFRICAN-AMERICAN > 60
[2016-08-24 08:51] LABS: ALKALINE PHOSPHATASE 101 U/L (38-126); ALT/SGPT 15 U/L (21-72); AST/SGOT 25 U/L (17-59); BILIRUBIN,TOTAL 0.7 mg/dL (0.2-1.3); BLOOD UREA NITROGEN 23 mg/dL (9-20); CARBON DIOXIDE 19 mmol/L (22-30); GLUCOSE,RANDOM 140 mg/dL (75-110)
[2016-08-24 08:52] LABS: CALCIUM 9.7 mg/dl (8.6-10.4)
[2016-08-24] MEDS: Fluticasone-Salmeterol 250-50mcg Diskus INH SCH ×2 (08:54→19:32)
[2016-08-24] MEDS: Tiotropium 18 mcg Cap For Inhalation INH SCH (08:54)
--- NOTE | 2016-08-24 13:59 | CP.PCM.PN ---
Subjective - Date & Time of Evaluation Date of Evaluation: 08/24/16 Time of Evaluation: 07:00 - Subjective Subjective: clinically same Objective - Vital Signs/Intake and Output Vital Signs (last 24 hours): Temp Pulse Resp BP Pulse Ox 97.4 F L 91 H 20 117/74 96 08/24/16 08:00 08/24/16 08:00 08/24/16 08:00 08/24/16 08:00 08/24/16 08:00 Intake and Output: 08/24/16 08/24/16 06:59 18:59 Intake Total 300 Balance 300 - Medications Medications: Current Medications Apixaban (Eliquis) 2.5 mg PO BID [facility] Last Admin: 08/24/16 13:12 Dose: Not Given Aspirin (Aspirin Chewable) 81 mg PO DAILY [facility] Last Admin: 08/24/16 13:12 Dose: Not Given Calcium Carbonate (Tums) 500 mg PO BID [facility] Last Admin: 08/24/16 13:14 Dose: Not Given Diphenhydramine HCl (Benadryl) 25 mg PO Q6 PRN PRN Reason: Extra Pyramidal Symptoms Last Admin: 08/20/16 09:36 Dose: 25 mg Ferrous Sulfate (Feosol) 325 mg PO TID [facility] Last Admin: 08/24/16 13:11 Dose: Not Given Guaifenesin/Dextromethorphan (Robitussin Dm) 10 ml PO TID [facility] Last Admin: 08/24/16 13:08 Dose: Not Given Haloperidol (Haldol) 2 mg PO Q6 PRN PRN Reason: Moderate Agitation Last Admin: 08/24/16 08:29 Dose: 2 mg Haloperidol Lactate (Haldol) 2 mg IM Q6 PRN PRN Reason: Agitation Last Admin: 08/24/16 13:09 Dose: 2 mg Insulin Aspart (Novolog) 0 unit SC [facility] PRN Reason: Protocol Last Admin: 08/24/16 12:00 Dose: 2 unit Levothyroxine Sodium (Synthroid) 37.5 mcg PO DAILY@0630 [facility] Last Admin: 08/24/16 05:42 Dose: 37.5 mcg Lorazepam (Ativan) 1 mg IM Q6H PRN PRN Reason: Agitation Last Admin: 08/23/16 08:23 Dose: 1 mg [facility] Last Admin: 08/24/16 08:27 Dose: 1,000 mg Pantoprazole Sodium (Protonix Ec Tab) 40 mg PO DAILY [facility] Last Admin: 08/24/16 13:13 Dose: Not Given Quetiapine Fumarate (Seroquel) 50 mg PO HS [facility] Last Admin: 08/23/16 21:43 Dose: 50 mg Quetiapine Fumarate (Seroquel) 50 mg PO DAILY [facility] Last Admin: 08/24/16 13:13 Dose: Not Given Rosuvastatin Calcium (Crestor) 5 mg PO [facility] Last Admin: 08/23/16 21:41 Dose: 5 mg Fluticasone/Salmeterol (Advair Diskus 250/50) 1 puff INH RQ12 [facility] Last Admin: 08/24/16 08:54 Dose: Not Given Tamsulosin HCl (Flomax) 0.4 mg PO DAILY [facility] Last Admin: 08/24/16 13:11 Dose: Not Given Tiotropium [place] (Spiriva) 18 mcg INH RQ24 [facility] Last Admin: 08/24/16 08:54 Dose: Not Given - Labs Labs: 08/21/16 07:31 08/24/16 08:09 - Constitutional Appears: Well - Head Exam Head Exam: ATRAUMATIC, NORMAL INSPECTION, NORMOCEPHALIC - Eye Exam Eye Exam: EOMI, Normal appearance, PERRL Pupil Exam: NORMAL ACCOMODATION, PERRL - ENT Exam ENT Exam: Mucous Membranes Moist, Normal Exam - Neck Exam Neck Exam: Full ROM, Normal Inspection. absent: Lymphadenopathy - Respiratory Exam Respiratory Exam: Decreased Breath Sounds - Cardiovascular Exam Cardiovascular Exam: REGULAR RHYTHM, +S1, +S2 - GI/Abdominal Exam GI & Abdominal Exam: Soft, Diminished Bowel Sounds - Rectal Exam Rectal Exam: Deferred Assessment and Plan (1) Abnormal CXR (chest x-ray) Status: Acute (2) COPD (chronic obstructive pulmonary disease) Status: Acute (3) COPD exacerbation Status: Acute (4) Cardiac disease Status: Acute (5) Depression Status: Acute (6) Diabetes Status: Acute - Assessment and Plan (Free Text) Plan: pt physically aggressive as per staff delusional psychiatry Dr Garett draper
[2016-08-24 14:52] LABS: BASO # 0.2 K/uL (0.0-0.2); BASO % 1.5 % (0.0-2.0); EOS # 0.2 K/uL (0.0-0.7); EOS % 1.3 % (0.0-4.0); HEMATOCRIT 44.3 % (35.0-51.0); LYMPH # 3.4 K/uL (1.0-4.3); LYMPH % 30.1 % (20.0-40.0); MEAN CORPUSCULAR HEMOGLOBIN 27.2 pg (27.0-31.0); MEAN CORPUSCULAR HGB CONC 31.1 g/dL (33.0-37.0); MEAN PLATELET VOLUME 10.3 fL (7.2-11.7); NRBC % 0.1 % (0.0-2.0); RED CELL DISTRIBUTION WIDTH 18.5 % (11.5-14.5); WHITE BLOOD COUNT 11.4 K/uL (4.8-10.8)
[2016-08-24 14:53] LABS: MEAN CELL VOLUME 87.4 fL (80.0-94.0)
--- NOTE | 2016-08-24 15:43 | PCM.PYCHPN ---
Psychiatric Progress Note - Psychiatric Progress Note Patient seen today, length of contact: 16 min Patient Chief Complaint: I am feeling leola Problems Identified/Issues Discussed: Pt was seen and evaluated and chart reviewed and discussed with staff. As pert the staff pt still appear demented. He is less irritable and less agitated than before. However, at times he starts yelling at the staff.Pt appears forgetful and delusional. However he denies any suicidal ideation or any homicidal ideation. He is taking medications off and on but denies any side effects. Supportive therapy was given. Medication Change: Yes (increase seroquel) Medical Record Reviewed: Yes Mental Status Examination - Cognitive Function Orientation: Person, Place, Situation, Time Memory: Intact Attention: Poor Concentration: WNL Association: Loose Fund of Knowledge: Poor - Mood Mood: Anxious - Affect Affect: Constricted - Speech Speech: Soft - Formal Thought Process Formal Thought Process: Paranoia - Suicidal Ideation Suicidal Ideation: No - Homicidal Ideation Homicidal Ideation: No Goal/Treatment Plan - Goal/Treatment Plan Need for Continued Stay: Discharge may exacerbated symptoms, Severe functional impairment Progress Toward Problem(s) and Goals/Treatment Plan: 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 CBT [facility] Seroquel 50 mg PO daily Seroquel 100 mg PO HS Depakote sprinkles 125 mg PO BID Remeron 7.5 mg PO QHS Haldol 2 mg I/M prn Haldol 2 mg PO PRN - Smoking Cessation Smoking Cessation Initiated: No
[2016-08-24] MEDS: Divalproex 125 mg Sprinkle Capsule PO SCH (17:37)
[2016-08-25] MEDS: Levothyroxine 75 MCG TAB PO SCH (06:00)
[2016-08-25] MEDS: Tiotropium 18 mcg Cap For Inhalation INH SCH (08:13)
[2016-08-25] MEDS: Fluticasone-Salmeterol 250-50mcg Diskus INH SCH ×2 (08:13→19:50)
[2016-08-25] MEDS: (Novolog) Insulin Aspart, Recombinant 100 u/ml 10 ml vial SC SCH ×4 (09:20→22:10)
[2016-08-25] MEDS: Divalproex 125 mg Sprinkle Capsule PO SCH ×2 (10:44→17:56)
[2016-08-25] MEDS: Pantoprazole 40 mg EC Tab PO SCH (10:44)
[2016-08-25] MEDS: guaiFENesin DM 200 mg-20 mg/10 ml UD PO SCH ×3 (10:45→17:57)
[2016-08-25] MEDS: Calcium Carbonate 500 mg Chewable Antacid Tab PO SCH ×2 (10:46→17:57)
--- NOTE | 2016-08-25 11:12 | CP.PCM.PN ---
Subjective - Date & Time of Evaluation Date of Evaluation: 08/25/16 Time of Evaluation: 07:00 - Subjective Subjective: clinically same Objective - Vital Signs/Intake and Output Vital Signs (last 24 hours): Temp Pulse Resp BP Pulse Ox 98 F 78 20 120/75 97 08/25/16 07:36 08/25/16 07:36 08/25/16 07:36 08/25/16 07:36 08/25/16 07:36 Intake and Output: 08/25/16 08/25/16 06:59 18:59 Intake Total 120 Balance 120 - Medications Medications: Current Medications Aspirin (Aspirin Chewable) 81 mg PO DAILY [facility] Last Admin: 08/25/16 10:44 Dose: 81 mg Calcium Carbonate (Tums) 500 mg PO BID [facility] Last Admin: 08/25/16 10:46 Dose: 500 mg Diphenhydramine HCl (Benadryl) 25 mg PO Q6 PRN PRN Reason: Extra Pyramidal Symptoms Last Admin: 08/20/16 09:36 Dose: 25 mg Divalproex Sodium (Depakote Sprinkles) 125 mg PO BID [facility] Last Admin: 08/25/16 10:44 Dose: 125 mg Ferrous Sulfate (Feosol) 325 mg PO TID [facility] Last Admin: 08/25/16 10:44 Dose: 325 mg Guaifenesin/Dextromethorphan (Robitussin Dm) 10 ml PO TID [facility] Last Admin: 08/25/16 10:45 Dose: Not Given Haloperidol (Haldol) 2 mg PO Q6 PRN PRN Reason: Moderate Agitation Last Admin: 08/25/16 10:45 Dose: 2 mg Haloperidol Lactate (Haldol) 2 mg IM Q6 PRN PRN Reason: Agitation Last Admin: 08/24/16 13:09 Dose: 2 mg Insulin Aspart (Novolog) 0 unit SC [facility] PRN Reason: Protocol Last Admin: 08/25/16 09:20 Dose: Not Given Levothyroxine Sodium (Synthroid) 37.5 mcg PO DAILY@0630 [facility] Last Admin: 08/25/16 06:00 Dose: 37.5 mcg Lorazepam (Ativan) 1 mg IM Q6H PRN PRN Reason: Agitation Last Admin: 08/25/16 02:47 Dose: 1 mg [facility] Last Admin: 08/25/16 10:45 Dose: 1,000 mg Pantoprazole Sodium (Protonix Ec Tab) 40 mg PO DAILY [facility] Last Admin: 08/25/16 10:44 Dose: 40 mg Quetiapine Fumarate (Seroquel) 50 mg PO DAILY [facility] Last Admin: 08/25/16 10:45 Dose: 50 mg Quetiapine Fumarate (Seroquel) 100 mg PO HS [facility] Last Admin: 08/24/16 21:40 Dose: 100 mg Rosuvastatin Calcium (Crestor) 5 mg PO HS [facility] Last Admin: 08/24/16 21:40 Dose: 5 mg Fluticasone/Salmeterol (Advair Diskus 250/50) 1 puff INH RQ12 [facility] Last Admin: 08/25/16 08:13 Dose: Not Given Tamsulosin HCl (Flomax) 0.4 mg PO DAILY [facility] Last Admin: 08/25/16 10:44 Dose: 0.4 mg Tiotropium [place] (Spiriva) 18 mcg INH RQ24 [facility] Last Admin: 08/25/16 08:13 Dose: Not Given - Labs Labs: 08/24/16 14:48 08/24/16 08:09 - Constitutional Appears: Well - Head Exam Head Exam: ATRAUMATIC, NORMAL INSPECTION, NORMOCEPHALIC - Eye Exam Eye Exam: EOMI, Normal appearance, PERRL Pupil Exam: NORMAL ACCOMODATION, PERRL - ENT Exam ENT Exam: Mucous Membranes Moist, Normal Exam - Neck Exam Neck Exam: Full ROM, Normal Inspection. absent: Lymphadenopathy - Respiratory Exam Respiratory Exam: Decreased Breath Sounds - Cardiovascular Exam Cardiovascular Exam: REGULAR RHYTHM, +S1, +S2 - GI/Abdominal Exam GI & Abdominal Exam: Soft, Diminished Bowel Sounds - Rectal Exam Rectal Exam: Deferred Assessment and Plan (1) Abnormal CXR (chest x-ray) Status: Acute (2) COPD (chronic obstructive pulmonary disease) Status: Acute (3) COPD exacerbation Status: Acute (4) Cardiac disease Status: Acute (5) Depression Status: Acute (6) Diabetes Status: Acute - Assessment and Plan (Free Text) Plan: Continue same awaiting for subacute placement medications as reviewed Labs reviewed
[2016-08-26] MEDS: Levothyroxine 75 MCG TAB PO SCH (05:33)
[2016-08-26] MEDS: (Novolog) Insulin Aspart, Recombinant 100 u/ml 10 ml vial SC SCH ×4 (07:59→21:18)
[2016-08-26 08:04] LABS: BASO % 0.6 % (0.0-2.0); EOS # 0.2 K/uL (0.0-0.7); EOS % 3.1 % (0.0-4.0); HEMATOCRIT 34.2 % (35.0-51.0); LYMPH % 29.8 % (20.0-40.0); MEAN CORPUSCULAR HEMOGLOBIN 27.3 pg (27.0-31.0); MEAN CORPUSCULAR HGB CONC 32.8 g/dL (33.0-37.0); MEAN PLATELET VOLUME 8.6 fL (7.2-11.7); MONO # 0.8 K/uL (0.0-0.8); MONO % 11.2 % (0.0-10.0); RED CELL DISTRIBUTION WIDTH 17.3 % (11.5-14.5); WHITE BLOOD COUNT 6.9 K/uL (4.8-10.8)
[2016-08-26 08:10] LABS: CHLORIDE 106 mmol/L (98-107); POTASSIUM 3.9 mmol/L (3.6-5.2); SODIUM 139 mmol/L (132-148)
[2016-08-26 08:12] LABS: AST/SGOT 12 U/L (17-59); BILIRUBIN,TOTAL 0.6 mg/dL (0.2-1.3); CARBON DIOXIDE 23 mmol/L (22-30); GFR AFRICAN-AMERICAN > 60
[2016-08-26 08:13] LABS: ALKALINE PHOSPHATASE 73 U/L (38-126); ALT/SGPT 22 U/L (21-72); BLOOD UREA NITROGEN 19 mg/dL (9-20); CALCIUM 9.1 mg/dl (8.6-10.4); GLUCOSE,RANDOM 133 mg/dL (75-110); MEAN CELL VOLUME 83.1 fL (80.0-94.0); TOTAL PROTEIN 6.2 g/dL (6.3-8.3)
[2016-08-26] MEDS: Fluticasone-Salmeterol 250-50mcg Diskus INH SCH ×2 (08:38→20:01)
[2016-08-26] MEDS: Divalproex 125 mg Sprinkle Capsule PO SCH ×2 (10:16→17:32)
[2016-08-26] MEDS: Pantoprazole 40 mg EC Tab PO SCH (10:17)
[2016-08-26] MEDS: Calcium Carbonate 500 mg Chewable Antacid Tab PO SCH ×2 (10:17→17:38)
[2016-08-26] MEDS: guaiFENesin DM 200 mg-20 mg/10 ml UD PO SCH ×3 (10:17→17:38)
--- NOTE | 2016-08-26 15:40 | CP.PCM.PN ---
<Karim,Antonia - Last Filed: 08/26/16 15:38> Subjective - Date & Time of Evaluation Date of Evaluation: 08/26/16 Time of Evaluation: 15:38 - Subjective Subjective: PGY [address] Solis Pt seen and examined at bedside. Patient was agitated yesterday and had psych medication adjustment per Dr. Bajwa. No acute events overnight. Patient is resting comfortably. Patient denies having any CP, SOB, abd pain. Per nurse aid, patient is tolerating diet with small meals. ROS are difficult to obtain due to dementia. Objective - Vital Signs/Intake and Output Vital Signs (last 24 hours): Temp Pulse Resp BP Pulse Ox 98.7 F 88 20 116/74 96 08/26/16 07:21 08/26/16 07:21 08/26/16 07:21 08/26/16 07:21 08/26/16 07:21 Intake and Output: 08/26/16 08/26/16 06:59 18:59 Intake Total 240 Balance 240 - Medications Medications: Current Medications Aspirin (Aspirin Chewable) 81 mg PO DAILY [facility] Last Admin: 08/26/16 10:17 Dose: 81 mg Calcium Carbonate (Tums) 500 mg PO BID [facility] Last Admin: 08/26/16 10:17 Dose: 500 mg Diphenhydramine HCl (Benadryl) 25 mg PO Q6 PRN PRN Reason: Extra Pyramidal Symptoms Last Admin: 08/20/16 09:36 Dose: 25 mg Divalproex Sodium (Depakote Sprinkles) 125 mg PO BID [facility] Last Admin: 08/26/16 10:16 Dose: 125 mg Ferrous Sulfate (Feosol) 325 mg PO TID [facility] Last Admin: 08/26/16 14:15 Dose: Not Given Guaifenesin/Dextromethorphan (Robitussin Dm) 10 ml PO TID [facility] Last Admin: 08/26/16 14:16 Dose: Not Given Haloperidol (Haldol) 2 mg PO Q6 PRN PRN Reason: Moderate Agitation Last Admin: 08/26/16 10:16 Dose: 2 mg Haloperidol Lactate (Haldol) 2 mg IM Q6 PRN PRN Reason: Agitation Last Admin: 08/24/16 13:09 Dose: 2 mg Insulin Aspart (Novolog) 0 unit SC ACHS [facility] PRN Reason: Protocol Last Admin: 08/26/16 14:15 Dose: Not Given Levothyroxine Sodium (Synthroid) 37.5 mcg PO DAILY@0630 [facility] Last Admin: 08/26/16 05:33 Dose: 37.5 mcg Lorazepam (Ativan) 1 mg IM Q6H PRN PRN Reason: Agitation Last Admin: 08/26/16 02:42 Dose: 1 mg Metformin HCl (Glucophage) 1,000 mg PO BIDCC [facility] Last Admin: 08/26/16 10:18 Dose: 1,000 mg Pantoprazole Sodium (Protonix Ec Tab) 40 mg PO DAILY [facility] Last Admin: 08/26/16 10:17 Dose: 40 mg Quetiapine Fumarate (Seroquel) 50 mg PO DAILY [facility] Last Admin: 08/26/16 10:18 Dose: 50 mg Quetiapine Fumarate (Seroquel) 100 mg PO HS [facility] Last Admin: 08/25/16 22:37 Dose: 100 mg Rosuvastatin Calcium (Crestor) 5 mg PO HS [facility] Last Admin: 08/25/16 22:40 Dose: 5 mg Fluticasone/Salmeterol (Advair Diskus 250/50) 1 puff INH RQ12 [facility] Last Admin: 08/26/16 08:38 Dose: Not Given Tamsulosin HCl (Flomax) 0.4 mg PO DAILY [facility] Last Admin: 08/26/16 10:18 Dose: 0.4 mg - Labs Labs: 08/26/16 07:56 08/26/16 07:56 - Constitutional Appears: Non-toxic, No Acute Distress - Head Exam Head Exam: ATRAUMATIC - ENT Exam ENT Exam: Mucous Membranes Moist - Respiratory Exam Respiratory Exam: Clear to Ausculation Bilateral. absent: Accessory Muscle Use , Rales, Rhonchi, Wheezes, Respiratory Distress - Cardiovascular Exam Cardiovascular Exam: REGULAR RHYTHM, +S1, +S2. absent: Gallop, Rubs, Murmur - GI/Abdominal Exam GI & Abdominal Exam: Soft, Normal Bowel Sounds. absent: Distended, Firm, Guarding, Rigid, Tenderness, Organomegaly - Extremities Exam Extremities Exam: absent: Pedal Edema, Tenderness - Neurological Exam Neurological Exam: Alert, Awake, Oriented x3 - Psychiatric Exam Psychiatric exam: Normal Affect, Normal Mood - Skin Skin Exam: Dry, Intact, Normal Color, Warm Assessment and Plan - Assessment and Plan (Free Text) Assessment: Assessment: Lumbar back pain 08/26: stable. Activity as tolerated 08/21: Ortho and Neurosurgery recommend bed rest and physical therapy No evidence of retropulsion to cord. Stable. Chronic 08/13: per neurosurgery, Dr. Acuña, patient does not need intervention for L2 fracture 08/12: Ortho PA saw patient today - CT confirms acute appearing L2 compression fracture, no retropulsion seen per report. Ill defined soft tissue density seen , ? edema. Would recommend attempt MRI (unsure if patient will tolerate and cooperate) for further visualization. * Neurosurgery Consulted, Dr. Rose. 08/11: Lumbar XRAY - 1. Age indeterminate acute superior endplate compression fracture in the L2 vertebral body with 4 mm retrolisthesis. 2. Mild multilevel degenerative disc disease, worse at L5-S1. see full report. * Consult Ortho, help appreciated - Dr. 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 08/26: Psych, Dr. Bajwa adjusted psych meds due to dementia 2/2 Alzheimer's with behavioral disturbances. Added seroquel 50 mg po QD and seroquel 100 mg po HS and depakote sprinkles 125 mg po BID and remeron 7.5 po qhs 08/21: Improved mood 08/11: patient now receiving Haldol IM for several days - first day he was AAOx3. 08/10: patient receiving the majority of his medications, sometimes refuses. 08/07: patient refused seroquel last night 08/06: Patient is accepting some medications, but still refusing others 08/05: Patient seen by psychiatry, Dr. Bajwa, help appreciated. Haldol IV: Haldol 2mg IM Q6 PRN 08/04: Re-consult psych for possible medication adjustments, as patient is refusing most PO medications including Haldol. 08/03: All meds per Psychiatry Psych consult - Dr. Galicia - f/u recs Haldol 2mg IM Q6 PRN, agitation Haldol 2mg PO Q6H PRN, moderate agitation Depression 08/21: No SI/HI. Monitor Psych Dr. Bajwa consulted, help appreciated. Chest Pain Resolved JAREK negative EKG with LBBB as prior EKGs have also shown Cardio consult - Dr. Marinelli - help appreciated ECHO - left ventricular is normal size. there is mild to moderate concentric left ventricular hypertrophy. the systolic function is midly to moderately impaired. septal hypokinesis. mild to moderate aortic regurgitation. mild pulmonary hypertension. (please see full report) Nodular opacity in chest Pulm consult - Dr. Hayden - help appreciated Chest CT - extensive bilateral fine nodular interstitial infiltrate both lower lobes. dense pleural based consolidation right lower lobe. subpleural emphysema. mild centrilobular pulmonary emphysema. left upper lobe nodules. 7mm and 9mm. reccomend f/u noncontrast chest CT in 3 months. Multiple left upper lobe nodular calcifications, likely granulomatous. probable small airways disease posterior right upper lobe. findings are nonspecific and may reflect infection or inflammatory disease. Patient needs to f/u outpatient per Dr. Hayden for nodular opacity in chest + COPD. COPD Pulm consult - Dr. Hayden - help appreciated Advair and Spiriva DM RISS, accuchecks. Lantus 10U SC HS, Metformin Hypothyroid Continue synthroid 37.5 mcg po qd. Hx of cardiac disease Continue Eliquis, ASA, Crestor. Prophylactic measure Protonix 40 mg PO daily Eliquis 2.5 mg Po BID Social work referral. -Labs ordered MWF. -PT rec -> DAPHNEY Disposition Pending rehab placement, patient denied at [place] Case discussed with attending, Dr. Solis All Medical Management per Dr. Solis <Perla Solis - Last Filed: 08/26/16 23:08> Objective - Vital Signs/Intake and Output Vital Signs (last 24 hours): Temp Pulse Resp BP Pulse Ox 98.2 F 86 20 107/70 100 08/26/16 15:51 08/26/16 15:51 08/26/16 15:51 08/26/16 15:51 08/26/16 15:51 - Medications Medications: Current Medications Aspirin (Aspirin Chewable) 81 mg PO DAILY [facility] Last Admin: 08/26/16 10:17 Dose: 81 mg Calcium Carbonate (Tums) 500 mg PO BID [facility] Last Admin: 08/26/16 17:38 Dose: 500 mg Diphenhydramine HCl (Benadryl) 25 mg PO Q6 PRN PRN Reason: Extra Pyramidal Symptoms Last Admin: 08/20/16 09:36 Dose: 25 mg Divalproex Sodium (Depakote Sprinkles) 125 mg PO BID [facility] Last Admin: 08/26/16 17:32 Dose: 125 mg Ferrous Sulfate (Feosol) 325 mg PO TID [facility] Last Admin: 08/26/16 17:37 Dose: 325 mg Guaifenesin/Dextromethorphan (Robitussin Dm) 10 ml PO TID [facility] Last Admin: 08/26/16 17:38 Dose: 10 ml Haloperidol (Haldol) 2 mg PO Q6 PRN PRN Reason: Moderate Agitation Last Admin: 08/26/16 10:16 Dose: 2 mg Haloperidol Lactate (Haldol) 2 mg IM Q6 PRN PRN Reason: Agitation Last Admin: 08/24/16 13:09 Dose: 2 mg Insulin Aspart (Novolog) 0 unit SC ACHS [facility] PRN Reason: Protocol Last Admin: 08/26/16 21:18 Dose: Not Given Levothyroxine Sodium (Synthroid) 37.5 mcg PO DAILY@0630 [facility] Last Admin: 08/26/16 05:33 Dose: 37.5 mcg Lorazepam (Ativan) 1 mg IM Q6H PRN PRN Reason: Agitation Last Admin: 08/26/16 02:42 Dose: 1 mg Metformin HCl (Glucophage) 1,000 mg PO BIDCC [facility] Last Admin: 08/26/16 17:33 Dose: 1,000 mg Pantoprazole Sodium (Protonix Ec Tab) 40 mg PO DAILY [facility] Last Admin: 08/26/16 10:17 Dose: 40 mg Quetiapine Fumarate (Seroquel) 50 mg PO DAILY [facility] Last Admin: 08/26/16 10:18 Dose: 50 mg Quetiapine Fumarate (Seroquel) 100 mg PO HS [facility] Last Admin: 08/26/16 21:39 Dose: 100 mg Rosuvastatin Calcium (Crestor) 5 mg PO HS [facility] Last Admin: 08/26/16 21:39 Dose: 5 mg Fluticasone/Salmeterol (Advair Diskus 250/50) 1 puff INH RQ12 [facility] Last Admin: 08/26/16 20:01 Dose: Not Given Tamsulosin HCl (Flomax) 0.4 mg PO DAILY [facility] Last Admin: 08/26/16 10:18 Dose: 0.4 mg - Labs Labs: 08/26/16 07:56 08/26/16 07:56 Assessment and Plan (1) Abnormal CXR (chest x-ray) Status: Acute (2) COPD (chronic obstructive pulmonary disease) Status: Acute (3) COPD exacerbation Status: Acute (4) Cardiac disease Status: Acute (5) Depression Status: Acute (6) Diabetes Status: Acute Attending/Attestation - Attestation I have personally seen and examined this patient.: Yes I have fully participated in the care of the patient.: Yes I have reviewed all pertinent clinical information, including history, physical exam and plan: Yes Notes (Text): 08/26/16 23:08 Continue same day seen and discussed with staff and resident status post neurosurgery status post orthopedic status post other consultations
--- NOTE | 2016-08-26 18:11 | CP.PCM.PN ---
Subjective - Date & Time of Evaluation Date of Evaluation: 08/26/16 Time of Evaluation: 07:00 - Subjective Subjective: clinically same Objective - Vital Signs/Intake and Output Vital Signs (last 24 hours): Temp Pulse Resp BP Pulse Ox 98.2 F 86 20 107/70 100 08/26/16 15:51 08/26/16 15:51 08/26/16 15:51 08/26/16 15:51 08/26/16 15:51 Intake and Output: 08/26/16 08/26/16 06:59 18:59 Intake Total 240 Balance 240 - Medications Medications: Current Medications Aspirin (Aspirin Chewable) 81 mg PO DAILY [facility] Last Admin: 08/26/16 10:17 Dose: 81 mg Calcium Carbonate (Tums) 500 mg PO BID [facility] Last Admin: 08/26/16 17:38 Dose: 500 mg Diphenhydramine HCl (Benadryl) 25 mg PO Q6 PRN PRN Reason: Extra Pyramidal Symptoms Last Admin: 08/20/16 09:36 Dose: 25 mg Divalproex Sodium (Depakote Sprinkles) 125 mg PO BID [facility] Last Admin: 08/26/16 17:32 Dose: 125 mg Ferrous Sulfate (Feosol) 325 mg PO TID [facility] Last Admin: 08/26/16 17:37 Dose: 325 mg Guaifenesin/Dextromethorphan (Robitussin Dm) 10 ml PO TID [facility] Last Admin: 08/26/16 17:38 Dose: 10 ml Haloperidol (Haldol) 2 mg PO Q6 PRN PRN Reason: Moderate Agitation Last Admin: 08/26/16 10:16 Dose: 2 mg Haloperidol Lactate (Haldol) 2 mg IM Q6 PRN PRN Reason: Agitation Last Admin: 08/24/16 13:09 Dose: 2 mg Insulin Aspart (Novolog) 0 unit SC ACHS [facility] PRN Reason: Protocol Last Admin: 08/26/16 16:55 Dose: Not Given Levothyroxine Sodium (Synthroid) 37.5 mcg PO DAILY@0630 [facility] Last Admin: 08/26/16 05:33 Dose: 37.5 mcg Lorazepam (Ativan) 1 mg IM Q6H PRN PRN Reason: Agitation Last Admin: 08/26/16 02:42 Dose: 1 mg [facility] Last Admin: 08/26/16 17:33 Dose: 1,000 mg Pantoprazole Sodium (Protonix Ec Tab) 40 mg PO DAILY [facility] Last Admin: 08/26/16 10:17 Dose: 40 mg Quetiapine Fumarate (Seroquel) 50 mg PO DAILY [facility] Last Admin: 08/26/16 10:18 Dose: 50 mg Quetiapine Fumarate (Seroquel) 100 mg PO HS [facility] Last Admin: 08/25/16 22:37 Dose: 100 mg Rosuvastatin Calcium (Crestor) 5 mg PO HS [facility] Last Admin: 08/25/16 22:40 Dose: 5 mg Fluticasone/Salmeterol (Advair Diskus 250/50) 1 puff INH RQ12 [facility] Last Admin: 08/26/16 08:38 Dose: Not Given Tamsulosin HCl (Flomax) 0.4 mg PO DAILY [facility] Last Admin: 08/26/16 10:18 Dose: 0.4 mg - Labs Labs: 08/26/16 07:56 08/26/16 07:56 - Constitutional Appears: Well - Head Exam Head Exam: ATRAUMATIC, NORMAL INSPECTION, NORMOCEPHALIC - Eye Exam Eye Exam: EOMI, Normal appearance, PERRL Pupil Exam: NORMAL ACCOMODATION, PERRL - ENT Exam ENT Exam: Mucous Membranes Moist, Normal Exam - Neck Exam Neck Exam: Full ROM, Normal Inspection. absent: Lymphadenopathy - Respiratory Exam Respiratory Exam: Decreased Breath Sounds - Cardiovascular Exam Cardiovascular Exam: REGULAR RHYTHM, +S1, +S2 - GI/Abdominal Exam GI & Abdominal Exam: Soft, Diminished Bowel Sounds - Rectal Exam Rectal Exam: Deferred Assessment and Plan (1) Abnormal CXR (chest x-ray) Status: Acute (2) COPD (chronic obstructive pulmonary disease) Status: Acute (3) COPD exacerbation Status: Acute (4) Cardiac disease Status: Acute (5) Depression Status: Acute (6) Diabetes Status: Acute - Assessment and Plan (Free Text) Plan: Continue same psych on board pain meds bed rest PT Follow-up
[2016-08-27] MEDS: Levothyroxine 75 MCG TAB PO SCH (06:26)
[2016-08-27] MEDS: (Novolog) Insulin Aspart, Recombinant 100 u/ml 10 ml vial SC SCH ×4 (08:00→22:18)
[2016-08-27] MEDS: guaiFENesin DM 200 mg-20 mg/10 ml UD PO SCH ×3 (10:36→18:50)
[2016-08-27] MEDS: Pantoprazole 40 mg EC Tab PO SCH (10:36)
[2016-08-27] MEDS: Divalproex 125 mg Sprinkle Capsule PO SCH ×2 (10:36→18:50)
[2016-08-27] MEDS: Calcium Carbonate 500 mg Chewable Antacid Tab PO SCH ×2 (10:36→18:50)
--- NOTE | 2016-08-27 12:30 | CP.PCM.PN ---
Subjective - Date & Time of Evaluation Date of Evaluation: 08/27/16 Time of Evaluation: 10:20 - Subjective Subjective: Medicine Progress Note- Dr Luba Solis's service Patient seen and examined. No acute events overnight. Patient awake and responding appropriately. Patient complains of pain in his back sometimes. Denies chest pain or shortness of breath. Objective - Vital Signs/Intake and Output Vital Signs (last 24 hours): Temp Pulse Resp BP Pulse Ox 98.4 F 86 20 110/65 98 08/27/16 08:00 08/27/16 08:00 08/27/16 08:00 08/27/16 08:00 08/27/16 08:00 Intake and Output: 08/27/16 08/27/16 06:59 18:59 Intake Total 250 Balance 250 - Medications Medications: Current Medications Aspirin (Aspirin Chewable) 81 mg PO DAILY [facility] Last Admin: 08/27/16 10:37 Dose: 81 mg Calcium Carbonate (Tums) 500 mg PO BID [facility] Last Admin: 08/27/16 10:36 Dose: 500 mg Diphenhydramine HCl (Benadryl) 25 mg PO Q6 PRN PRN Reason: Extra Pyramidal Symptoms Last Admin: 08/20/16 09:36 Dose: 25 mg Divalproex Sodium (Depakote Sprinkles) 125 mg PO BID [facility] Last Admin: 08/27/16 10:36 Dose: 125 mg Ferrous Sulfate (Feosol) 325 mg PO TID [facility] Last Admin: 08/27/16 10:37 Dose: 325 mg Guaifenesin/Dextromethorphan (Robitussin Dm) 10 ml PO TID [facility] Last Admin: 08/27/16 10:36 Dose: 10 ml Haloperidol (Haldol) 2 mg PO Q6 PRN PRN Reason: Moderate Agitation Last Admin: 08/27/16 06:27 Dose: 2 mg Haloperidol Lactate (Haldol) 2 mg IM Q6 PRN PRN Reason: Agitation Last Admin: 08/24/16 13:09 Dose: 2 mg Insulin Aspart (Novolog) 0 unit SC ACHS [facility] PRN Reason: Protocol Last Admin: 08/27/16 08:00 Dose: 1 unit Levothyroxine Sodium (Synthroid) 37.5 mcg PO DAILY@0630 [facility] Last Admin: 08/27/16 06:26 Dose: 37.5 mcg Lorazepam (Ativan) 1 mg IM Q6H PRN PRN Reason: Anxiety Metformin HCl (Glucophage) 1,000 mg PO BIDCC [facility] Last Admin: 08/27/16 10:37 Dose: 1,000 mg Pantoprazole Sodium (Protonix Ec Tab) 40 mg PO DAILY [facility] Last Admin: 08/27/16 10:36 Dose: 40 mg Quetiapine Fumarate (Seroquel) 50 mg PO DAILY [facility] Last Admin: 08/27/16 10:38 Dose: 50 mg Quetiapine Fumarate (Seroquel) 100 mg PO HS [facility] Last Admin: 08/26/16 21:39 Dose: 100 mg Rosuvastatin Calcium (Crestor) 5 mg PO HS [facility] Last Admin: 08/26/16 21:39 Dose: 5 mg Fluticasone/Salmeterol (Advair Diskus 250/50) 1 puff INH RQ12 [facility] Last Admin: 08/26/16 20:01 Dose: Not Given Tamsulosin HCl (Flomax) 0.4 mg PO DAILY [facility] Last Admin: 08/27/16 10:37 Dose: 0.4 mg - Labs Labs: 08/26/16 07:56 08/26/16 07:56 - Constitutional Appears: No Acute Distress, Cachectic, Chronically Ill - Head Exam Head Exam: ATRAUMATIC, NORMOCEPHALIC - Eye Exam Eye Exam: EOMI, Normal appearance - ENT Exam ENT Exam: Mucous Membranes Dry - Respiratory Exam Respiratory Exam: Clear to Ausculation Bilateral, NORMAL BREATHING PATTERN. absent: Rhonchi, Wheezes, Respiratory Distress - Cardiovascular Exam Cardiovascular Exam: REGULAR RHYTHM, +S1, +S2. absent: Irregular Rhythm - GI/Abdominal Exam GI & Abdominal Exam: Soft, Normal Bowel Sounds. absent: Distended, Firm, Guarding, Rigid - Extremities Exam Extremities Exam: absent: Pedal Edema Additional comments: extremities contracted, muscle wasting - Neurological Exam Neurological Exam: Alert, Awake - Psychiatric Exam Psychiatric exam: Normal Affect, Normal Mood - Skin Skin Exam: Dry, Normal Color, Warm Assessment and Plan - Assessment and Plan (Free Text) Assessment: 1) Lumbar back pain 08/27: Tylenol ordered 650mg PO q6h prn mild pain. Activity as tolerated. Ortho and Neurosurgery recommend bed rest and physical therapy. No evidence of retropulsion to cord. Stable. Chronic 08/13: per neurosurgery, Dr. Acuña, patient does not need intervention for L2 fracture CT confirms acute appearing L2 compression fracture, no retropulsion seen per report. Ill defined soft tissue density seen, ? edema. Would recommend attempt MRI (unsure if patient will tolerate and cooperate) for further visualization. * Neurosurgery Consulted, Dr. Rose. 08/11: Lumbar XRAY - 1. Age indeterminate acute superior endplate compression fracture in the L2 vertebral body with 4 mm retrolisthesis. 2. Mild multilevel degenerative disc disease, worse at L5-S1. see full report. * Consult Ortho, help appreciated - Dr. 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 Patient stable with no behavioral disturbances 08/26: Psych, Dr. Bajwa adjusted psych meds due to dementia 2/2 Alzheimer's with behavioral disturbances. Added seroquel 50 mg po QD and seroquel 100 mg po HS and depakote sprinkles 125 mg po BID and remeron 7.5 po qhs Psych consult - Dr. Galicia - help appreciated Haldol 2mg IM Q6 PRN, agitation Haldol 2mg PO Q6H PRN, moderate agitation 3) Depression No SI/HI. Monitor Psych Dr. Bajwa consulted, help appreciated. 4) Chest Pain Resolved ROMIs negative EKG with LBBB as prior EKGs have also shown Cardio consult - Dr. Marinelli - help appreciated ECHO - left ventricular is normal size. there is mild to moderate concentric left ventricular hypertrophy. the systolic function is midly to moderately impaired. septal hypokinesis. mild to moderate aortic regurgitation. mild pulmonary hypertension. (please see full report) 5) Nodular opacity in chest Pulm consult - Dr. Hayden - help appreciated Chest CT - extensive bilateral fine nodular interstitial infiltrate both lower lobes. dense pleural based consolidation right lower lobe. subpleural emphysema. mild centrilobular pulmonary emphysema. left upper lobe nodules. 7mm and 9mm. reccomend f/u noncontrast chest CT in 3 months. Multiple left upper lobe nodular calcifications, likely granulomatous. probable small airways disease posterior right upper lobe. findings are nonspecific and may reflect infection or inflammatory disease. Patient needs to f/u outpatient per Dr. Hayden for nodular opacity in chest + COPD. 6) COPD Pulm consult - Dr. Hayden - help appreciated Advair and Spiriva 7) DM RISS, accuchecks. Lantus 10U SC HS, Metformin 8) Hypothyroid Continue synthroid 37.5 mcg po qd. 9) Hx of cardiac disease Continue Eliquis, ASA, Crestor. 10) Prophylactic measure Protonix 40 mg PO daily Eliquis 2.5 mg Po BID Social work referral. -Labs ordered MW. -PT rec -> DAPHNEY Disposition Pending rehab placement, patient denied at [place] Case discussed with attending, Dr. Solis All Medical Management per Dr. Solis
--- NOTE | 2016-08-27 14:34 | CP.PCM.PN ---
Subjective - Date & Time of Evaluation Date of Evaluation: 08/27/16 Time of Evaluation: 07:00 - Subjective Subjective: clinically same Objective - Vital Signs/Intake and Output Vital Signs (last 24 hours): Temp Pulse Resp BP Pulse Ox 98.4 F 86 20 110/65 98 08/27/16 08:00 08/27/16 08:00 08/27/16 08:00 08/27/16 08:00 08/27/16 08:00 Intake and Output: 08/27/16 08/27/16 06:59 18:59 Intake Total 250 Balance 250 - Medications Medications: Current Medications Acetaminophen (Tylenol 325mg Tab) 650 mg PO Q6 PRN PRN Reason: Pain, Mild (1-3) Aspirin (Aspirin Chewable) 81 mg PO DAILY [facility] Last Admin: 08/27/16 10:37 Dose: 81 mg Calcium Carbonate (Tums) 500 mg PO BID [facility] Last Admin: 08/27/16 10:36 Dose: 500 mg Diphenhydramine HCl (Benadryl) 25 mg PO Q6 PRN PRN Reason: Extra Pyramidal Symptoms Last Admin: 08/20/16 09:36 Dose: 25 mg Divalproex Sodium (Depakote Sprinkles) 125 mg PO BID [facility] Last Admin: 08/27/16 10:36 Dose: 125 mg Ferrous Sulfate (Feosol) 325 mg PO TID [facility] Last Admin: 08/27/16 13:04 Dose: Not Given Guaifenesin/Dextromethorphan (Robitussin Dm) 10 ml PO TID [facility] Last Admin: 08/27/16 13:04 Dose: Not Given Haloperidol (Haldol) 2 mg PO Q6 PRN PRN Reason: Moderate Agitation Last Admin: 08/27/16 06:27 Dose: 2 mg Haloperidol Lactate (Haldol) 2 mg IM Q6 PRN PRN Reason: Agitation Last Admin: 08/24/16 13:09 Dose: 2 mg Insulin Aspart (Novolog) 0 unit SC ACHS [facility] PRN Reason: Protocol Last Admin: 08/27/16 13:04 Dose: Not Given Levothyroxine Sodium (Synthroid) 37.5 mcg PO DAILY@0630 [facility] Last Admin: 08/27/16 06:26 Dose: 37.5 mcg Lorazepam (Ativan) 1 mg IM Q6H PRN PRN Reason: Anxiety Metformin HCl (Glucophage) 1,000 mg PO BIDCC [facility] Last Admin: 08/27/16 10:37 Dose: 1,000 mg Pantoprazole Sodium (Protonix Ec Tab) 40 mg PO DAILY [facility] Last Admin: 08/27/16 10:36 Dose: 40 mg Quetiapine Fumarate (Seroquel) 50 mg PO DAILY [facility] Last Admin: 08/27/16 10:38 Dose: 50 mg Quetiapine Fumarate (Seroquel) 100 mg PO HS [facility] Last Admin: 08/26/16 21:39 Dose: 100 mg Rosuvastatin Calcium (Crestor) 5 mg PO HS [facility] Last Admin: 08/26/16 21:39 Dose: 5 mg Fluticasone/Salmeterol (Advair Diskus 250/50) 1 puff INH RQ12 [facility] Last Admin: 08/26/16 20:01 Dose: Not Given Tamsulosin HCl (Flomax) 0.4 mg PO DAILY [facility] Last Admin: 08/27/16 10:37 Dose: 0.4 mg - Labs Labs: 08/26/16 07:56 08/26/16 07:56 - Constitutional Appears: Well - Head Exam Head Exam: ATRAUMATIC, NORMAL INSPECTION, NORMOCEPHALIC - Eye Exam Eye Exam: EOMI, Normal appearance, PERRL Pupil Exam: NORMAL ACCOMODATION, PERRL - ENT Exam ENT Exam: Mucous Membranes Moist, Normal Exam - Neck Exam Neck Exam: Full ROM, Normal Inspection. absent: Lymphadenopathy - Respiratory Exam Respiratory Exam: Decreased Breath Sounds - Cardiovascular Exam Cardiovascular Exam: REGULAR RHYTHM, +S1, +S2 - GI/Abdominal Exam GI & Abdominal Exam: Soft, Diminished Bowel Sounds - Rectal Exam Rectal Exam: Deferred Assessment and Plan (1) Abnormal CXR (chest x-ray) Status: Acute (2) COPD (chronic obstructive pulmonary disease) Status: Acute (3) COPD exacerbation Status: Acute (4) Cardiac disease Status: Acute (5) Depression Status: Acute (6) Diabetes Status: Acute - Assessment and Plan (Free Text) Plan: jovi same as ordered psych on board jovi PT OT pain meds haldol seroquel
[2016-08-28] MEDS: Levothyroxine 75 MCG TAB PO SCH (05:36)
--- NOTE | 2016-08-28 09:29 | CP.PCM.PN ---
Subjective - Date & Time of Evaluation Date of Evaluation: 08/28/16 Time of Evaluation: 07:00 - Subjective Subjective: clinically same Objective - Vital Signs/Intake and Output Vital Signs (last 24 hours): Temp Pulse Resp BP Pulse Ox 98 F 82 20 103/69 95 08/28/16 08:00 08/28/16 08:00 08/28/16 08:00 08/28/16 08:00 08/28/16 08:00 Intake and Output: 08/28/16 08/28/16 06:59 18:59 Intake Total 450 Balance 450 - Medications Medications: Current Medications Acetaminophen (Tylenol 325mg Tab) 650 mg PO Q6 PRN PRN Reason: Pain, Mild (1-3) Aspirin (Aspirin Chewable) 81 mg PO DAILY [facility] Last Admin: 08/27/16 10:37 Dose: 81 mg Calcium Carbonate (Tums) 500 mg PO BID [facility] Last Admin: 08/27/16 18:50 Dose: 500 mg Diphenhydramine HCl (Benadryl) 25 mg PO Q6 PRN PRN Reason: Extra Pyramidal Symptoms Last Admin: 08/20/16 09:36 Dose: 25 mg Divalproex Sodium (Depakote Sprinkles) 125 mg PO BID [facility] Last Admin: 08/27/16 18:50 Dose: 125 mg Ferrous Sulfate (Feosol) 325 mg PO TID [facility] Last Admin: 08/27/16 18:50 Dose: 325 mg Guaifenesin/Dextromethorphan (Robitussin Dm) 10 ml PO TID [facility] Last Admin: 08/27/16 18:50 Dose: 10 ml Haloperidol (Haldol) 2 mg PO Q6 PRN PRN Reason: Moderate Agitation Last Admin: 08/27/16 06:27 Dose: 2 mg Haloperidol Lactate (Haldol) 2 mg IM Q6 PRN PRN Reason: Agitation Last Admin: 08/24/16 13:09 Dose: 2 mg Insulin Aspart (Novolog) 0 unit SC [facility] PRN Reason: Protocol Last Admin: 08/27/16 22:18 Dose: Not Given Levothyroxine Sodium (Synthroid) 37.5 mcg PO DAILY@0630 [facility] Last Admin: 08/28/16 05:36 Dose: 37.5 mcg Lorazepam (Ativan) 1 mg IM Q6H PRN PRN Reason: Anxiety Metformin HCl (Glucophage) 1,000 mg PO BIDCC [facility] Last Admin: 08/27/16 17:50 Dose: 1,000 mg Pantoprazole Sodium (Protonix Ec Tab) 40 mg PO DAILY [facility] Last Admin: 08/27/16 10:36 Dose: 40 mg Quetiapine Fumarate (Seroquel) 50 mg PO DAILY [facility] Last Admin: 08/27/16 10:38 Dose: 50 mg Quetiapine Fumarate (Seroquel) 100 mg PO HS [facility] Last Admin: 08/27/16 22:15 Dose: 100 mg Rosuvastatin Calcium (Crestor) 5 mg PO HS [facility] Last Admin: 08/27/16 22:19 Dose: 5 mg Fluticasone/Salmeterol (Advair Diskus 250/50) 1 puff INH RQ12 [facility] Last Admin: 08/26/16 20:01 Dose: Not Given Tamsulosin HCl (Flomax) 0.4 mg PO DAILY [facility] Last Admin: 08/27/16 10:37 Dose: 0.4 mg - Labs Labs: 08/26/16 07:56 08/26/16 07:56 - Constitutional Appears: Well - Head Exam Head Exam: ATRAUMATIC, NORMAL INSPECTION, NORMOCEPHALIC - Eye Exam Eye Exam: EOMI, Normal appearance, PERRL Pupil Exam: NORMAL ACCOMODATION, PERRL - ENT Exam ENT Exam: Mucous Membranes Moist, Normal Exam - Neck Exam Neck Exam: Full ROM, Normal Inspection. absent: Lymphadenopathy - Respiratory Exam Respiratory Exam: Decreased Breath Sounds - Cardiovascular Exam Cardiovascular Exam: REGULAR RHYTHM, +S1, +S2 - GI/Abdominal Exam GI & Abdominal Exam: Soft, Diminished Bowel Sounds - Rectal Exam Rectal Exam: Deferred Assessment and Plan (1) Abnormal CXR (chest x-ray) Status: Acute (2) COPD (chronic obstructive pulmonary disease) Status: Acute (3) COPD exacerbation Status: Acute (4) Cardiac disease Status: Acute (5) Depression Status: Acute (6) Diabetes Status: Acute - Assessment and Plan (Free Text) Plan: jovi same as ordered psych on board jovi PT OT pain meds haldol seroquel
[2016-08-28] MEDS: (Novolog) Insulin Aspart, Recombinant 100 u/ml 10 ml vial SC SCH ×4 (10:46→21:48)
[2016-08-28] MEDS: Calcium Carbonate 500 mg Chewable Antacid Tab PO SCH ×2 (10:50→18:12)
[2016-08-28] MEDS: Pantoprazole 40 mg EC Tab PO SCH (10:50)
[2016-08-28] MEDS: Divalproex 125 mg Sprinkle Capsule PO SCH ×2 (10:50→18:10)
[2016-08-28] MEDS: guaiFENesin DM 200 mg-20 mg/10 ml UD PO SCH ×3 (10:50→18:11)
[2016-08-28] MEDS: Fluticasone-Salmeterol 250-50mcg Diskus INH SCH ×2 (10:59→19:30)
--- NOTE | 2016-08-28 15:59 | CP.PCM.PN ---
Subjective - Date & Time of Evaluation Date of Evaluation: 08/28/16 Time of Evaluation: 15:52 - Subjective Subjective: PGY2 progress note for Dr. Solis Pt is seen and examined at bedside. No acute events overnight. Patient denies having any CP, SOB, abd pain. Patient is tolerating diet. 12 point ROS are difficult to obtain due to dementia. Objective - Vital Signs/Intake and Output Vital Signs (last 24 hours): Temp Pulse Resp BP Pulse Ox 98 F 82 20 103/69 95 08/28/16 08:00 08/28/16 08:00 08/28/16 08:00 08/28/16 08:00 08/28/16 08:00 Intake and Output: 08/28/16 08/28/16 06:59 18:59 Intake Total 450 Balance 450 - Medications Medications: Current Medications Acetaminophen (Tylenol 325mg Tab) 650 mg PO Q6 PRN PRN Reason: Pain, Mild (1-3) Aspirin (Aspirin Chewable) 81 mg PO DAILY [facility] Last Admin: 08/28/16 10:50 Dose: 81 mg Calcium Carbonate (Tums) 500 mg PO BID [facility] Last Admin: 08/28/16 10:50 Dose: 500 mg Diphenhydramine HCl (Benadryl) 25 mg PO Q6 PRN PRN Reason: Extra Pyramidal Symptoms Last Admin: 08/20/16 09:36 Dose: 25 mg Divalproex Sodium (Depakote Sprinkles) 125 mg PO BID [facility] Last Admin: 08/28/16 10:50 Dose: 125 mg Ferrous Sulfate (Feosol) 325 mg PO TID [facility] Last Admin: 08/28/16 13:50 Dose: 325 mg Guaifenesin/Dextromethorphan (Robitussin Dm) 10 ml PO TID [facility] Last Admin: 08/28/16 13:51 Dose: 10 ml Haloperidol (Haldol) 2 mg PO Q6 PRN PRN Reason: Moderate Agitation Last Admin: 08/27/16 06:27 Dose: 2 mg Haloperidol Lactate (Haldol) 2 mg IM Q6 PRN PRN Reason: Agitation Last Admin: 08/24/16 13:09 Dose: 2 mg Insulin Aspart (Novolog) 0 unit SC [facility]S [facility] PRN Reason: Protocol Last Admin: 08/28/16 11:15 Dose: Not Given Levothyroxine Sodium (Synthroid) 37.5 mcg PO DAILY@0630 [facility] Last Admin: 08/28/16 05:36 Dose: 37.5 mcg Lorazepam (Ativan) 1 mg IM Q6H PRN PRN Reason: Anxiety Metformin HCl (Glucophage) 1,000 mg PO BIDCC [facility] Last Admin: 08/28/16 10:46 Dose: Not Given Pantoprazole Sodium (Protonix Ec Tab) 40 mg PO DAILY [facility] Last Admin: 08/28/16 10:50 Dose: 40 mg Quetiapine Fumarate (Seroquel) 50 mg PO DAILY [facility] Last Admin: 08/28/16 10:50 Dose: 50 mg Quetiapine Fumarate (Seroquel) 100 mg PO [facility] Last Admin: 08/27/16 22:15 Dose: 100 mg Rosuvastatin Calcium (Crestor) 5 mg PO [facility] Last Admin: 08/27/16 22:19 Dose: 5 mg Fluticasone/Salmeterol (Advair Diskus 250/50) 1 puff INH RQ12 [facility] Last Admin: 08/28/16 10:59 Dose: 1 puff Tamsulosin HCl (Flomax) 0.4 mg PO DAILY [facility] Last Admin: 08/28/16 10:50 Dose: 0.4 mg - Labs Labs: 08/26/16 07:56 08/26/16 07:56 - Constitutional Appears: Non-toxic, No Acute Distress - Head Exam Head Exam: ATRAUMATIC - ENT Exam ENT Exam: Mucous Membranes Moist - Respiratory Exam Respiratory Exam: Clear to Ausculation Bilateral. absent: Rales, Rhonchi, Wheezes, Respiratory Distress - Cardiovascular Exam Cardiovascular Exam: REGULAR RHYTHM, +S1, +S2. absent: Gallop, Rubs, Murmur - GI/Abdominal Exam GI & Abdominal Exam: Soft, Normal Bowel Sounds. absent: Firm, Guarding, Rigid, Tenderness, Organomegaly - Extremities Exam Extremities Exam: absent: Pedal Edema, Tenderness - Neurological Exam Neurological Exam: Alert, Awake, Oriented x3 - Psychiatric Exam Psychiatric exam: Normal Affect, Normal Mood - Skin Skin Exam: Dry, Intact, Normal Color, Warm Assessment and Plan - Assessment and Plan (Free Text) Assessment: 1) Lumbar back pain 08/28: Continue physical therapy 08/27: Tylenol ordered 650mg PO q6h prn mild pain. Activity as tolerated. Ortho and Neurosurgery recommend bed rest and physical therapy. No evidence of retropulsion to cord. Stable. Chronic 08/13: per neurosurgery, Dr. Acuña, patient does not need intervention for L2 fracture CT confirms acute appearing L2 compression fracture, no retropulsion seen per report. Ill defined soft tissue density seen, ? edema. Would recommend attempt MRI (unsure if patient will tolerate and cooperate) for further visualization. * Neurosurgery Consulted, Dr. Rose. 08/11: Lumbar XRAY - 1. Age indeterminate acute superior endplate compression fracture in the L2 vertebral body with 4 mm retrolisthesis. 2. Mild multilevel degenerative disc disease, worse at L5-S1. see full report. * Consult Ortho, help appreciated - Dr. 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 Patient stable today with no behavioral disturbances Continue seroquel 50 mg po QD and seroquel 100 mg po HS and depakote sprinkles 125 mg po BID and remeron 7.5 po qhs per psych recs Haldol 2mg IM Q6 PRN, agitation Haldol 2mg PO Q6H PRN, moderate agitation 3) Depression No SI/HI. Monitor Psych Dr. Bajwa consulted, help appreciated. 4) Chest Pain Resolved ROMIs negative EKG with LBBB as prior EKGs have also shown Cardio consult - Dr. Marinelli - help appreciated ECHO - left ventricular is normal size. there is mild to moderate concentric left ventricular hypertrophy. the systolic function is midly to moderately impaired. septal hypokinesis. mild to moderate aortic regurgitation. mild pulmonary hypertension. (please see full report) 5) Nodular opacity in chest Pulm consult - Dr. Hayden - help appreciated Chest CT - extensive bilateral fine nodular interstitial infiltrate both lower lobes. dense pleural based consolidation right lower lobe. subpleural emphysema. mild centrilobular pulmonary emphysema. left upper lobe nodules. 7mm and 9mm. reccomend f/u noncontrast chest CT in 3 months. Multiple left upper lobe nodular calcifications, likely granulomatous. probable small airways disease posterior right upper lobe. findings are nonspecific and may reflect infection or inflammatory disease. Patient needs to f/u outpatient per Dr. Hayden for nodular opacity in chest + COPD. 6) COPD Pulm consult - Dr. Hayden - help appreciated Advair and Spiriva 7) DM RISS, accuchecks. Lantus 10U SC HS, Metformin 8) Hypothyroid Continue synthroid 37.5 mcg po qd. 9) Hx of cardiac disease Continue Eliquis, ASA, Crestor. 10) Prophylactic measure Protonix 40 mg PO daily Eliquis 2.5 mg Po BID Social work referral. -Labs ordered [facility]. -PT rec -> DAPHNEY Disposition Pending rehab placement, patient denied at [place] Case discussed with attending, Dr. Solis [facility] per Dr. Solis
[2016-08-29] MEDS: Levothyroxine 75 MCG TAB PO SCH (06:13)
[2016-08-29] MEDS: Fluticasone-Salmeterol 250-50mcg Diskus INH SCH ×2 (07:43→19:51)
[2016-08-29] MEDS: guaiFENesin DM 200 mg-20 mg/10 ml UD PO SCH ×3 (10:30→18:41)
[2016-08-29] MEDS: Divalproex 125 mg Sprinkle Capsule PO SCH ×2 (10:31→18:40)
[2016-08-29] MEDS: Calcium Carbonate 500 mg Chewable Antacid Tab PO SCH ×2 (10:31→18:42)
[2016-08-29] MEDS: Pantoprazole 40 mg EC Tab PO SCH (10:31)
--- NOTE | 2016-08-29 14:28 | CP.PCM.PN ---
Subjective - Date & Time of Evaluation Date of Evaluation: 08/29/16 Time of Evaluation: 07:00 - Subjective Subjective: clinically same Objective - Vital Signs/Intake and Output Vital Signs (last 24 hours): Temp Pulse Resp BP Pulse Ox 98.7 F 65 20 120/73 98 08/29/16 08:00 08/29/16 08:00 08/29/16 08:00 08/29/16 08:00 08/29/16 08:00 Intake and Output: 08/29/16 08/29/16 06:59 18:59 Intake Total 180 180 Balance 180 180 - Medications Medications: Current Medications Acetaminophen (Tylenol 325mg Tab) 650 mg PO Q6 PRN PRN Reason: Pain, Mild (1-3) Aspirin (Aspirin Chewable) 81 mg PO DAILY [facility] Last Admin: 08/29/16 10:31 Dose: 81 mg Calcium Carbonate (Tums) 500 mg PO BID [facility] Last Admin: 08/29/16 10:31 Dose: 500 mg Diphenhydramine HCl (Benadryl) 25 mg PO Q6 PRN PRN Reason: Extra Pyramidal Symptoms Last Admin: 08/20/16 09:36 Dose: 25 mg Divalproex Sodium (Depakote Sprinkles) 125 mg PO BID [facility] Last Admin: 08/29/16 10:31 Dose: 125 mg Ferrous Sulfate (Feosol) 325 mg PO TID [facility] Last Admin: 08/29/16 10:30 Dose: 325 mg Guaifenesin/Dextromethorphan (Robitussin Dm) 10 ml PO TID [facility] Last Admin: 08/29/16 10:30 Dose: 10 ml Haloperidol (Haldol) 2 mg PO Q6 PRN PRN Reason: Moderate Agitation Last Admin: 08/29/16 10:30 Dose: 2 mg Haloperidol Lactate (Haldol) 2 mg IM Q6 PRN PRN Reason: Agitation Last Admin: 08/24/16 13:09 Dose: 2 mg Levothyroxine Sodium (Synthroid) 37.5 mcg PO DAILY@0630 [facility] Last Admin: 08/29/16 06:13 Dose: 37.5 mcg Lorazepam (Ativan) 1 mg IM Q6H PRN PRN Reason: Anxiety [facility] Last Admin: 08/29/16 08:01 Dose: Not Given Pantoprazole Sodium (Protonix Ec Tab) 40 mg PO DAILY [facility] Last Admin: 08/29/16 10:31 Dose: 40 mg Quetiapine Fumarate (Seroquel) 50 mg PO DAILY [facility] Last Admin: 08/29/16 10:31 Dose: 50 mg Quetiapine Fumarate (Seroquel) 100 mg PO HS [facility] Last Admin: 08/28/16 22:54 Dose: Not Given Rosuvastatin Calcium (Crestor) 5 mg PO HS [facility] Last Admin: 08/28/16 22:53 Dose: Not Given Fluticasone/Salmeterol (Advair Diskus 250/50) 1 puff INH RQ12 [facility] Last Admin: 08/29/16 07:43 Dose: 1 puff Tamsulosin HCl (Flomax) 0.4 mg PO DAILY [facility] Last Admin: 08/29/16 10:31 Dose: 0.4 mg - Labs Labs: 08/26/16 07:56 08/26/16 07:56 Assessment and Plan (1) Abnormal CXR (chest x-ray) Status: Acute (2) COPD (chronic obstructive pulmonary disease) Status: Acute (3) COPD exacerbation Status: Acute (4) Cardiac disease Status: Acute (5) Depression Status: Acute (6) Diabetes Status: Acute - Assessment and Plan (Free Text) Plan: jovi PT jovi seroquel pain meds plan discharge f/u with psych f/u wiht Dr Nagy
[2016-08-30] MEDS: Levothyroxine 75 MCG TAB PO SCH ×2 (06:46→11:22)
[2016-08-30] MEDS: Fluticasone-Salmeterol 250-50mcg Diskus INH SCH ×2 (08:30→20:06)
[2016-08-30] MEDS: Divalproex 125 mg Sprinkle Capsule PO SCH ×2 (11:19→19:57)
[2016-08-30] MEDS: Calcium Carbonate 500 mg Chewable Antacid Tab PO SCH ×2 (11:19→20:00)
[2016-08-30] MEDS: guaiFENesin DM 200 mg-20 mg/10 ml UD PO SCH ×3 (11:19→19:59)
[2016-08-30] MEDS: Pantoprazole 40 mg EC Tab PO SCH (11:21)
--- NOTE | 2016-08-30 21:14 | CP.PCM.PN ---
Subjective - Date & Time of Evaluation Date of Evaluation: 08/30/16 Time of Evaluation: 10:20 - Subjective Subjective: clinically same Objective - Vital Signs/Intake and Output Vital Signs (last 24 hours): Temp Pulse Resp BP Pulse Ox 98.1 F 76 20 106/66 99 08/30/16 15:00 08/30/16 15:00 08/30/16 15:00 08/30/16 15:00 08/30/16 15:00 - Medications Medications: Current Medications Acetaminophen (Tylenol 325mg Tab) 650 mg PO Q6 PRN PRN Reason: Pain, Mild (1-3) Aspirin (Aspirin Chewable) 81 mg PO DAILY [facility] Last Admin: 08/30/16 11:20 Dose: 81 mg Calcium Carbonate (Tums) 500 mg PO BID [facility] Last Admin: 08/30/16 20:00 Dose: 500 mg Diphenhydramine HCl (Benadryl) 25 mg PO Q6 PRN PRN Reason: Extra Pyramidal Symptoms Last Admin: 08/20/16 09:36 Dose: 25 mg Divalproex Sodium (Depakote Sprinkles) 125 mg PO BID [facility] Last Admin: 08/30/16 19:57 Dose: 125 mg Ferrous Sulfate (Feosol) 325 mg PO TID [facility] Last Admin: 08/30/16 19:58 Dose: 325 mg Guaifenesin/Dextromethorphan (Robitussin Dm) 10 ml PO TID [facility] Last Admin: 08/30/16 19:59 Dose: 10 ml Haloperidol (Haldol) 2 mg PO Q6 PRN PRN Reason: Moderate Agitation Last Admin: 08/30/16 19:57 Dose: 2 mg Haloperidol Lactate (Haldol) 2 mg IM Q6 PRN PRN Reason: Agitation Last Admin: 08/24/16 13:09 Dose: 2 mg Levothyroxine Sodium (Synthroid) 37.5 mcg PO DAILY@0630 [facility] Last Admin: 08/30/16 11:22 Dose: 37.5 mcg Lorazepam (Ativan) 1 mg IM Q6H PRN PRN Reason: Anxiety [facility] ([facility]) [facility] Last Admin: 08/30/16 20:00 Dose: Not Given Pantoprazole Sodium (Protonix Ec Tab) 40 mg PO DAILY [facility] Last Admin: 07/16/17 11:21 Dose: 40 mg Quetiapine Fumarate (Seroquel) 50 mg PO DAILY [facility] Last Admin: 08/30/16 11:19 Dose: 50 mg Quetiapine Fumarate (Seroquel) 100 mg PO HS [facility] Last Admin: 08/29/16 21:46 Dose: Not Given Rosuvastatin Calcium (Crestor) 5 mg PO HS [facility] Last Admin: 08/29/16 21:45 Dose: 5 mg Fluticasone/Salmeterol (Advair Diskus 250/50) 1 puff INH RQ12 [facility] Last Admin: 08/30/16 20:06 Dose: 1 puff Tamsulosin HCl (Flomax) 0.4 mg PO DAILY [facility] Last Admin: 08/30/16 11:21 Dose: 0.4 mg - Labs Labs: 08/26/16 07:56 08/26/16 07:56 - Constitutional Appears: Well - Head Exam Head Exam: ATRAUMATIC, NORMAL INSPECTION, NORMOCEPHALIC - Eye Exam Eye Exam: EOMI, Normal appearance, PERRL - ENT Exam ENT Exam: Mucous Membranes Moist, Normal Exam - Neck Exam Neck Exam: Full ROM, Normal Inspection. absent: Lymphadenopathy - Respiratory Exam Respiratory Exam: Decreased Breath Sounds - Cardiovascular Exam Cardiovascular Exam: REGULAR RHYTHM, +S1, +S2. absent: Murmur - GI/Abdominal Exam GI & Abdominal Exam: Diminished Bowel Sounds. absent: Tenderness - Rectal Exam Rectal Exam: Deferred Assessment and Plan (1) Abnormal CXR (chest x-ray) Status: Acute (2) COPD (chronic obstructive pulmonary disease) Status: Acute (3) COPD exacerbation Status: Acute (4) Cardiac disease Status: Acute (5) Depression Status: Acute (6) Diabetes Status: Acute - Assessment and Plan (Free Text) Plan: Patient seen and examined at bedside No acute event overnight Continue same as ordered Pain meds Continue aspirin Continue Haldol Pulmonic board Psych on board Accu-Cheks Metformin Labs next a.m. Continue physical therapy
[2016-08-31] MEDS: Levothyroxine 75 MCG TAB PO SCH (06:10)
[2016-08-31] MEDS: Fluticasone-Salmeterol 250-50mcg Diskus INH SCH ×2 (08:53→20:54)
--- NOTE | 2016-08-31 10:24 | CP.PCM.PN ---
Subjective - Date & Time of Evaluation Date of Evaluation: 08/31/16 Time of Evaluation: 07:00 - Subjective Subjective: clinically same Objective - Vital Signs/Intake and Output Vital Signs (last 24 hours): Temp Pulse Resp BP Pulse Ox 98.0 F 78 20 111/70 96 08/31/16 08:08 08/31/16 08:08 08/31/16 08:08 08/31/16 08:08 08/31/16 08:08 Intake and Output: 08/31/16 08/31/16 06:59 18:59 Intake Total 150 Output Total 1 Balance 149 - Medications Medications: Current Medications Acetaminophen (Tylenol 325mg Tab) 650 mg PO Q6 PRN PRN Reason: Pain, Mild (1-3) Aspirin (Aspirin Chewable) 81 mg PO DAILY [facility] Last Admin: 08/30/16 11:20 Dose: 81 mg Calcium Carbonate (Tums) 500 mg PO BID [facility] Last Admin: 08/30/16 20:00 Dose: 500 mg Diphenhydramine HCl (Benadryl) 25 mg PO Q6 PRN PRN Reason: Extra Pyramidal Symptoms Last Admin: 08/20/16 09:36 Dose: 25 mg Divalproex Sodium (Depakote Sprinkles) 125 mg PO BID [facility] Last Admin: 08/30/16 19:57 Dose: 125 mg Ferrous Sulfate (Feosol) 325 mg PO TID [facility] Last Admin: 08/30/16 19:58 Dose: 325 mg Guaifenesin/Dextromethorphan (Robitussin Dm) 10 ml PO TID [facility] Last Admin: 08/30/16 19:59 Dose: 10 ml Haloperidol (Haldol) 2 mg PO Q6 PRN PRN Reason: Moderate Agitation Last Admin: 08/31/16 07:42 Dose: 2 mg Haloperidol Lactate (Haldol) 2 mg IM Q6 PRN PRN Reason: Agitation Last Admin: 08/24/16 13:09 Dose: 2 mg Levothyroxine Sodium (Synthroid) 37.5 mcg PO DAILY@0630 [facility] Last Admin: 08/31/16 06:10 Dose: 37.5 mcg Lorazepam (Ativan) 1 mg IM Q6H PRN PRN Reason: Anxiety Last Admin: 08/30/16 22:13 Dose: 1 mg Metformin [facility] (Gluc[facility]) [facility] Last Admin: 08/31/16 08:13 Dose: 1,000 mg Pantoprazole Sodium (Protonix Ec Tab) 40 mg PO DAILY [facility] Last Admin: 08/30/16 11:21 Dose: 40 mg Quetiapine Fumarate (Seroquel) 50 mg PO DAILY [facility] Last Admin: 08/30/16 11:19 Dose: 50 mg Quetiapine Fumarate (Seroquel) 100 mg PO [facility] Last Admin: 08/30/16 21:54 Dose: 100 mg Rosuvastatin Calcium (Crestor) 5 mg PO [facility] Last Admin: 08/30/16 21:53 Dose: 5 mg Fluticasone/Salmeterol (Advair Diskus 250/50) 1 puff INH RQ12 [facility] Last Admin: 08/31/16 08:53 Dose: Not Given Tamsulosin HCl (Flomax) 0.4 mg PO DAILY [facility] Last Admin: 08/30/16 11:21 Dose: 0.4 mg - Labs Labs: 08/26/16 07:56 08/26/16 07:56 - Constitutional Appears: Well - Head Exam Head Exam: ATRAUMATIC, NORMAL INSPECTION, NORMOCEPHALIC - Eye Exam Eye Exam: EOMI, Normal appearance, PERRL Pupil Exam: NORMAL ACCOMODATION, PERRL - ENT Exam ENT Exam: Mucous Membranes Moist, Normal Exam - Neck Exam Neck Exam: Full ROM, Normal Inspection. absent: Lymphadenopathy - Respiratory Exam Respiratory Exam: Decreased Breath Sounds - Cardiovascular Exam Cardiovascular Exam: REGULAR RHYTHM, +S1, +S2 - GI/Abdominal Exam GI & Abdominal Exam: Soft, Diminished Bowel Sounds - Rectal Exam Rectal Exam: Deferred Assessment and Plan (1) Abnormal CXR (chest x-ray) Status: Acute (2) COPD (chronic obstructive pulmonary disease) Status: Acute (3) COPD exacerbation Status: Acute (4) Cardiac disease Status: Acute (5) Depression Status: Acute (6) Diabetes Status: Acute - Assessment and Plan (Free Text) Plan: No acute event Denies chest pain Tolerating diet Continue physical therapy Pain meds Continue aspirin Continue Haldol Pulmonic board Psych on board Accu-Cheks Metformin
[2016-08-31] MEDS: Divalproex 125 mg Sprinkle Capsule PO SCH ×3 (11:48→18:55)
[2016-08-31] MEDS: guaiFENesin DM 200 mg-20 mg/10 ml UD PO SCH ×4 (11:48→18:55)
[2016-08-31] MEDS: Calcium Carbonate 500 mg Chewable Antacid Tab PO SCH ×3 (11:48→18:56)
[2016-08-31] MEDS: Pantoprazole 40 mg EC Tab PO SCH (11:49)
--- NOTE | 2016-08-31 15:37 | CP.PCM.PN ---
Subjective - Date & Time of Evaluation Date of Evaluation: 08/31/16 Time of Evaluation: 15:33 - Subjective Subjective: PGY2 progress note for Dr. Solis Pt is seen and examined at bedside. No acute events overnight. patient denies having any CP, abd pain, N/V/D/C. patient is tolerating diet. Objective - Vital Signs/Intake and Output Vital Signs (last 24 hours): Temp Pulse Resp BP Pulse Ox 98.0 F 77 20 111/70 95 08/31/16 08:08 08/31/16 14:43 08/31/16 08:08 08/31/16 08:08 08/31/16 14:43 Intake and Output: 08/31/16 08/31/16 06:59 18:59 Intake Total 150 Output Total 1 Balance 149 - Medications Medications: Current Medications Acetaminophen (Tylenol 325mg Tab) 650 mg PO Q6 PRN PRN Reason: Pain, Mild (1-3) Aspirin (Aspirin Chewable) 81 mg PO DAILY [facility] Last Admin: 08/31/16 11:48 Dose: 81 mg Calcium Carbonate (Tums) 500 mg PO BID [facility] Last Admin: 08/31/16 11:48 Dose: 500 mg Diphenhydramine HCl (Benadryl) 25 mg PO Q6 PRN PRN Reason: Extra Pyramidal Symptoms Last Admin: 08/20/16 09:36 Dose: 25 mg Divalproex Sodium (Depakote Sprinkles) 125 mg PO BID [facility] Last Admin: 08/31/16 11:48 Dose: 125 mg Ferrous Sulfate (Feosol) 325 mg PO TID [facility] Last Admin: 08/31/16 14:22 Dose: Not Given Guaifenesin/Dextromethorphan (Robitussin Dm) 10 ml PO TID [facility] Last Admin: 08/31/16 14:22 Dose: Not Given Haloperidol (Haldol) 2 mg PO Q6 PRN PRN Reason: Moderate Agitation Last Admin: 08/31/16 14:23 Dose: 2 mg Haloperidol Lactate (Haldol) 2 mg IM Q6 PRN PRN Reason: Agitation Last Admin: 08/24/16 13:09 Dose: 2 mg Levothyroxine Sodium (Synthroid) 37.5 mcg PO DAILY@0630 [facility] Last Admin: 08/31/16 06:10 Dose: 37.5 mcg Lorazepam (Ativan) 1 mg IM Q6H PRN PRN Reason: Anxiety Last Admin: 08/30/16 22:13 Dose: 1 mg Metformin HCl (Glucophage) 1,000 mg PO BIDCC [facility] Last Admin: 08/31/16 08:13 Dose: 1,000 mg Pantoprazole Sodium (Protonix Ec Tab) 40 mg PO DAILY [facility] Last Admin: 08/31/16 11:49 Dose: 40 mg Quetiapine Fumarate (Seroquel) 50 mg PO DAILY [facility] Last Admin: 08/31/16 11:48 Dose: 50 mg Quetiapine Fumarate (Seroquel) 100 mg PO HS [facility] Last Admin: 08/30/16 21:54 Dose: 100 mg Rosuvastatin Calcium (Crestor) 5 mg PO HS [facility] Last Admin: 08/30/16 21:53 Dose: 5 mg Fluticasone/Salmeterol (Advair Diskus 250/50) 1 puff INH RQ12 [facility] Last Admin: 08/31/16 08:53 Dose: Not Given Tamsulosin HCl (Flomax) 0.4 mg PO DAILY [facility] Last Admin: 08/31/16 11:49 Dose: 0.4 mg - Labs Labs: 08/26/16 07:56 08/26/16 07:56 - Constitutional Appears: Non-toxic, No Acute Distress - Head Exam Head Exam: ATRAUMATIC - Eye Exam Eye Exam: EOMI - ENT Exam ENT Exam: Mucous Membranes Moist - Respiratory Exam Respiratory Exam: Clear to Ausculation Bilateral. absent: Accessory Muscle Use , Rales, Rhonchi, Wheezes, Respiratory Distress - Cardiovascular Exam Cardiovascular Exam: REGULAR RHYTHM, +S1, +S2. absent: Gallop, Rubs, Murmur - GI/Abdominal Exam GI & Abdominal Exam: Soft, Normal Bowel Sounds. absent: Distended, Firm, Guarding, Rigid, Tenderness, Organomegaly - Extremities Exam Extremities Exam: absent: Pedal Edema, Tenderness - Neurological Exam Neurological Exam: Alert, Awake - Skin Skin Exam: Dry, Intact, Normal Color, Warm Assessment and Plan - Assessment and Plan (Free Text) Assessment: 1) Lumbar back pain Continue physical therapy. Activity as tolerated. Per neurosurgery, Dr. Acuña, patient does not need intervention for L2 fracture. No evidence of retropulsion to cord. Stable. Chronic Ortho and Neurosurgery recommend bed rest and physical therapy. CT confirms acute appearing L2 compression fracture, no retropulsion seen per report. Ill defined soft tissue density seen, ? edema. Would recommend attempt MRI (unsure if patient will tolerate and cooperate) for further visualization. * Neurosurgery Consulted, Dr. Rose. 08/11: Lumbar XRAY - 1. Age indeterminate acute superior endplate compression fracture in the L2 vertebral body with 4 mm retrolisthesis. 2. Mild multilevel degenerative disc disease, worse at L5-S1. see full report. * Consult Ortho, help appreciated - Dr. 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 Patient stable today with no behavioral disturbances Continue seroquel 50 mg po QD and seroquel 100 mg po HS and depakote sprinkles 125 mg po BID and remeron 7.5 po qhs per psych recs Haldol 2mg IM Q6 PRN, agitation Haldol 2mg PO Q6H PRN, moderate agitation 3) Depression No SI/HI. Monitor Psych Dr. Bajwa consulted, help appreciated. 4) Chest Pain Resolved ROMIs negative EKG with LBBB as prior EKGs have also shown Cardio consult - Dr. Marinelli - help appreciated ECHO - left ventricular is normal size. there is mild to moderate concentric left ventricular hypertrophy. the systolic function is midly to moderately impaired. septal hypokinesis. mild to moderate aortic regurgitation. mild pulmonary hypertension. (please see full report) 5) Nodular opacity in chest Pulm consult - Dr. Hayden - help appreciated Chest CT - extensive bilateral fine nodular interstitial infiltrate both lower lobes. dense pleural based consolidation right lower lobe. subpleural emphysema. mild centrilobular pulmonary emphysema. left upper lobe nodules. 7mm and 9mm. reccomend f/u noncontrast chest CT in 3 months. Multiple left upper lobe nodular calcifications, likely granulomatous. probable small airways disease posterior right upper lobe. findings are nonspecific and may reflect infection or inflammatory disease. Patient needs to f/u outpatient per Dr. Hayden for nodular opacity in chest + COPD. 6) COPD Pulm consult - Dr. Hayden - help appreciated Advair and Spiriva 7) DM RISS, accuchecks. Lantus 10U SC HS, Metformin 8) Hypothyroid Continue synthroid 37.5 mcg po qd. 9) Hx of cardiac disease Continue Eliquis, ASA, Crestor. 10) Prophylactic measure Protonix 40 mg PO daily Eliquis 2.5 mg Po BID Social work referral. -Labs ordered MWF. -PT rec -> D[facility]NEY Disposition Case management is consulted: Pending rehab placement Case discussed with attending, Dr. Solis All Medical Management per Dr. Solis
[2016-09-01] MEDS: Levothyroxine 75 MCG TAB PO SCH (06:26)
[2016-09-01] MEDS: Fluticasone-Salmeterol 250-50mcg Diskus INH SCH ×2 (08:05→19:30)
[2016-09-01] MEDS: Pantoprazole 40 mg EC Tab PO SCH (09:06)
[2016-09-01] MEDS: Divalproex 125 mg Sprinkle Capsule PO SCH ×2 (09:07→18:09)
[2016-09-01] MEDS: guaiFENesin DM 200 mg-20 mg/10 ml UD PO SCH ×3 (09:08→18:09)
[2016-09-01] MEDS: Calcium Carbonate 500 mg Chewable Antacid Tab PO SCH ×2 (09:09→18:10)
--- NOTE | 2016-09-01 10:18 | CP.PCM.PN ---
<Nanette Regan H - Last Filed: 09/01/16 10:15> Subjective - Date & Time of Evaluation Date of Evaluation: 09/01/16 Time of Evaluation: 09:25 - Subjective Subjective: PGY3 progress note for Dr. Solis Patient is seen and examined at bedside. No acute events overnight. Patient denies having any CP, abd pain, N/V/D/C. Patient is tolerating diet. Objective - Vital Signs/Intake and Output Vital Signs (last 24 hours): Temp Pulse Resp BP Pulse Ox 97.3 F L 80 20 115/74 99 09/01/16 09:35 09/01/16 09:35 09/01/16 09:35 09/01/16 09:35 09/01/16 09:35 Intake and Output: 09/01/16 09/01/16 06:59 18:59 Intake Total 500 Balance 500 - Medications Medications: Current Medications Acetaminophen (Tylenol 325mg Tab) 650 mg PO Q6 PRN PRN Reason: Pain, Mild (1-3) Aspirin (Aspirin Chewable) 81 mg PO DAILY [facility] Last Admin: 09/01/16 09:06 Dose: 81 mg Calcium Carbonate (Tums) 500 mg PO BID [facility] Last Admin: 09/01/16 09:09 Dose: 500 mg Diphenhydramine HCl (Benadryl) 25 mg PO Q6 PRN PRN Reason: Extra Pyramidal Symptoms Divalproex Sodium (Depakote Sprinkles) 125 mg PO BID [facility] Last Admin: 09/01/16 09:07 Dose: 125 mg Ferrous Sulfate (Feosol) 325 mg PO TID [facility] Last Admin: 09/01/16 09:06 Dose: 325 mg Guaifenesin/Dextromethorphan (Robitussin Dm) 10 ml PO TID [facility] Last Admin: 09/01/16 09:08 Dose: 10 ml Haloperidol (Haldol) 2 mg PO Q6 PRN PRN Reason: Moderate Agitation Haloperidol Lactate (Haldol) 2 mg IM Q6 PRN PRN Reason: Agitation Levothyroxine Sodium (Synthroid) 37.5 mcg PO DAILY@0630 [facility] Last Admin: 09/01/16 06:26 Dose: 37.5 mcg Lorazepam (Ativan) 1 mg IM Q6H PRN PRN Reason: Anxiety Last Admin: 08/30/16 22:13 Dose: 1 mg Metformin HCl (Glucophage) 1,000 mg PO BIDCC [facility] Last Admin: 09/01/16 09:06 Dose: 1,000 mg Pantoprazole Sodium (Protonix Ec Tab) 40 mg PO DAILY [facility] Last Admin: 09/01/16 09:06 Dose: 40 mg Quetiapine Fumarate (Seroquel) 100 mg PO HS [facility] Last Admin: 08/31/16 21:48 Dose: Not Given Quetiapine Fumarate (Seroquel) 50 mg PO DAILY [facility] Last Admin: 09/01/16 09:08 Dose: 50 mg Rosuvastatin Calcium (Crestor) 5 mg PO HS [facility] Last Admin: 08/31/16 21:48 Dose: Not Given Fluticasone/Salmeterol (Advair Diskus 250/50) 1 puff INH RQ12 [facility] Last Admin: 09/01/16 08:05 Dose: Not Given Tamsulosin HCl (Flomax) 0.4 mg PO DAILY [facility] Last Admin: 09/01/16 09:06 Dose: 0.4 mg - Labs Labs: 08/26/16 07:56 08/26/16 07:56 - Constitutional Appears: Non-toxic, No Acute Distress, Cachectic, Chronically Ill - Head Exam Head Exam: NORMAL INSPECTION - Eye Exam Eye Exam: EOMI - ENT Exam ENT Exam: Mucous Membranes Moist - Respiratory Exam Respiratory Exam: Clear to Ausculation Bilateral, NORMAL BREATHING PATTERN. absent: Rales, Rhonchi, Wheezes - Cardiovascular Exam Cardiovascular Exam: REGULAR RHYTHM, +S1, +S2. absent: Gallop, Rubs, Murmur - GI/Abdominal Exam GI & Abdominal Exam: Soft, Normal Bowel Sounds. absent: Firm, Guarding, Tenderness - Extremities Exam Extremities Exam: absent: Pedal Edema - Neurological Exam Neurological Exam: Alert, Awake, Oriented x3 - Psychiatric Exam Psychiatric exam: Normal Affect, Normal Mood - Skin Skin Exam: Normal Color, Warm Assessment and Plan - Assessment and Plan (Free Text) Assessment: 1) Lumbar back pain Continue physical therapy. Activity as tolerated. Per neurosurgery, Dr. Acuña, patient does not need intervention for L2 fracture. No evidence of retropulsion to cord. Stable. Chronic Ortho and Neurosurgery recommend bed rest and physical therapy. CT confirms acute appearing L2 compression fracture, no retropulsion seen per report. Ill defined soft tissue density seen, ? edema. Would recommend attempt MRI (unsure if patient will tolerate and cooperate) for further visualization. * Neurosurgery Consulted, Dr. Rose. 08/11: Lumbar XRAY - 1. Age indeterminate acute superior endplate compression fracture in the L2 vertebral body with 4 mm retrolisthesis. 2. Mild multilevel degenerative disc disease, worse at L5-S1. see full report. * Consult Ortho, help appreciated - Dr. 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 Patient stable today with no behavioral disturbances Continue seroquel 50 mg po QD and seroquel 100 mg po HS and depakote sprinkles 125 mg po BID and remeron 7.5 po qhs per psych recs Haldol 2mg IM Q6 PRN, agitation Haldol 2mg PO Q6H PRN, moderate agitation 3) Depression No SI/HI. Monitor Psych Dr. Bajwa consulted, help appreciated. 4) Chest Pain Resolved ROMIs negative EKG with LBBB as prior EKGs have also shown Cardio consult - Dr. Marinelli - help appreciated ECHO - left ventricular is normal size. there is mild to moderate concentric left ventricular hypertrophy. the systolic function is midly to moderately impaired. septal hypokinesis. mild to moderate aortic regurgitation. mild pulmonary hypertension. (please see full report) 5) Nodular opacity in chest Pulm consult - Dr. Hayden - help appreciated Chest CT - extensive bilateral fine nodular interstitial infiltrate both lower lobes. dense pleural based consolidation right lower lobe. subpleural emphysema. mild centrilobular pulmonary emphysema. left upper lobe nodules. 7mm and 9mm. reccomend f/u noncontrast chest CT in 3 months. Multiple left upper lobe nodular calcifications, likely granulomatous. probable small airways disease posterior right upper lobe. findings are nonspecific and may reflect infection or inflammatory disease. Patient needs to f/u outpatient per Dr. Hayden for nodular opacity in chest + COPD. 6) COPD Pulm consult - Dr. Hayden - help appreciated Advair and Spiriva 7) DM RISS, accuchecks. Lantus 10U SC HS, Metformin 8) Hypothyroid Continue synthroid 37.5 mcg po qd. 9) Hx of cardiac disease Continue Eliquis, ASA, Crestor. 10) Prophylactic measure Protonix 40 mg PO daily Eliquis 2.5 mg Po BID Social work referral. -Labs ordered MWF. -PT rec -> [facility]NEY Disposition Case management is consulted: Pending rehab placement Case discussed with attending, Dr. Solis All Medical Management per Dr. Solis <Perla Solis Samina - Last Filed: 11/02/16 17:37> Objective - Vital Signs/Intake and Output Vital Signs (last 24 hours): Temp Pulse Resp BP Pulse Ox 97.1 F L 67 20 127/58 L 99 11/02/16 16:00 11/02/16 16:31 11/02/16 16:31 11/02/16 16:31 11/02/16 16:31 Intake and Output: 11/02/16 11/02/16 06:59 18:59 Intake Total 0 0 Output Total 300 800 Balance -300 -800 - Medications Medications: Current Medications Acetaminophen (Tylenol 650mg/20.3ml Solution Ud) 650 mg PO Q6 PRN PRN Reason: Pain, moderate (4-7) Last Admin: 10/21/16 16:00 Dose: 650 mg Pantoprazole Sodium (Protonix Susp) 40 mg GT DAILY [facility] Last Admin: 11/02/16 12:07 Dose: Not Given Vancomycin HCl (Vancocin (Oral Or Rectal Use)) 500 mg PO QID [facility] Last Admin: 11/02/16 14:02 Dose: Not Given - Labs Labs: 10/28/16 06:40 10/28/16 06:36 Assessment and Plan (1) Abnormal CXR (chest x-ray) Status: Acute (2) COPD (chronic obstructive pulmonary disease) Status: Acute (3) COPD exacerbation Status: Acute (4) Cardiac disease Status: Acute (5) Depression Status: Acute (6) Diabetes Status: Acute Attending/Attestation - Attestation I have personally seen and examined this patient.: Yes I have fully participated in the care of the patient.: Yes I have reviewed all pertinent clinical information, including history, physical exam and plan: Yes Notes (Text): case seen and kimberley paula resdient
--- NOTE | 2016-09-01 10:20 | CP.PCM.PN ---
Subjective - Date & Time of Evaluation Date of Evaluation: 09/01/16 Time of Evaluation: 07:00 - Subjective Subjective: clinically same Objective - Vital Signs/Intake and Output Vital Signs (last 24 hours): Temp Pulse Resp BP Pulse Ox 97.3 F L 80 20 115/74 99 09/01/16 09:35 09/01/16 09:35 09/01/16 09:35 09/01/16 09:35 09/01/16 09:35 Intake and Output: 09/01/16 09/01/16 06:59 18:59 Intake Total 500 Balance 500 - Medications Medications: Current Medications Acetaminophen (Tylenol 325mg Tab) 650 mg PO Q6 PRN PRN Reason: Pain, Mild (1-3) Aspirin (Aspirin Chewable) 81 mg PO DAILY [facility] Last Admin: 09/01/16 09:06 Dose: 81 mg Calcium Carbonate (Tums) 500 mg PO BID [facility] Last Admin: 09/01/16 09:09 Dose: 500 mg Diphenhydramine HCl (Benadryl) 25 mg PO Q6 PRN PRN Reason: Extra Pyramidal Symptoms Divalproex Sodium (Depakote Sprinkles) 125 mg PO BID [facility] Last Admin: 09/01/16 09:07 Dose: 125 mg Ferrous Sulfate (Feosol) 325 mg PO TID [facility] Last Admin: 09/01/16 09:06 Dose: 325 mg Guaifenesin/Dextromethorphan (Robitussin Dm) 10 ml PO TID [facility] Last Admin: 09/01/16 09:08 Dose: 10 ml Haloperidol (Haldol) 2 mg PO Q6 PRN PRN Reason: Moderate Agitation Haloperidol Lactate (Haldol) 2 mg IM Q6 PRN PRN Reason: Agitation Levothyroxine Sodium (Synthroid) 37.5 mcg PO DAILY@0630 [facility] Last Admin: 09/01/16 06:26 Dose: 37.5 mcg Lorazepam (Ativan) 1 mg IM Q6H PRN PRN Reason: Anxiety Last Admin: 08/30/16 22:13 Dose: 1 mg [facility] Last Admin: 09/01/16 09:06 Dose: 1,000 mg Pantoprazole Sodium (Protonix Ec Tab) 40 mg PO DAILY [facility] Last Admin: 09/01/16 09:06 Dose: 40 mg Quetiapine Fumarate (Seroquel) 100 mg PO HS [facility] Last Admin: 08/31/16 21:48 Dose: Not Given Quetiapine Fumarate (Seroquel) 50 mg PO DAILY [facility] Last Admin: 09/01/16 09:08 Dose: 50 mg Rosuvastatin Calcium (Crestor) 5 mg PO HS [facility] Last Admin: 08/31/16 21:48 Dose: Not Given Fluticasone/Salmeterol (Advair Diskus 250/50) 1 puff INH RQ12 [facility] Last Admin: 09/01/16 08:05 Dose: Not Given Tamsulosin HCl (Flomax) 0.4 mg PO DAILY [facility] Last Admin: 09/01/16 09:06 Dose: 0.4 mg - Labs Labs: 08/26/16 07:56 08/26/16 07:56 - Constitutional Appears: Well - Head Exam Head Exam: ATRAUMATIC, NORMAL INSPECTION, NORMOCEPHALIC - Eye Exam Eye Exam: EOMI, Normal appearance, PERRL Pupil Exam: NORMAL ACCOMODATION, PERRL - ENT Exam ENT Exam: Mucous Membranes Moist, Normal Exam - Neck Exam Neck Exam: Full ROM, Normal Inspection. absent: Lymphadenopathy - Respiratory Exam Respiratory Exam: Decreased Breath Sounds - Cardiovascular Exam Cardiovascular Exam: REGULAR RHYTHM, +S1, +S2 - GI/Abdominal Exam GI & Abdominal Exam: Soft, Diminished Bowel Sounds - Rectal Exam Rectal Exam: Deferred Assessment and Plan (1) Abnormal CXR (chest x-ray) Status: Acute (2) COPD (chronic obstructive pulmonary disease) Status: Acute (3) COPD exacerbation Status: Acute (4) Cardiac disease Status: Acute (5) Depression Status: Acute (6) Diabetes Status: Acute - Assessment and Plan (Free Text) Plan: No acute events Pain meds Continue aspirin Continue Haldol Pulmonic board Psych on board Accu-Cheks Metformin Continue physical therapy
[2016-09-01 12:08] LABS: BASO % 0.6 % (0.0-2.0); EOS # 0.1 K/uL (0.0-0.7); EOS % 1.1 % (0.0-4.0); HEMATOCRIT 35.1 % (35.0-51.0); LYMPH % 31.3 % (20.0-40.0); MEAN CELL VOLUME 84.5 fL (80.0-94.0); MEAN CORPUSCULAR HEMOGLOBIN 27.1 pg (27.0-31.0); MEAN CORPUSCULAR HGB CONC 32.1 g/dL (33.0-37.0); MEAN PLATELET VOLUME 8.4 fL (7.2-11.7); MONO # 0.7 K/uL (0.0-0.8); MONO % 10.9 % (0.0-10.0); NRBC % 0.1 % (0.0-2.0); WHITE BLOOD COUNT 6.3 K/uL (4.8-10.8)
[2016-09-01 12:17] LABS: CHLORIDE 101 mmol/L (98-107)
[2016-09-01 12:18] LABS: POTASSIUM 3.5 mmol/L (3.6-5.2); SODIUM 137 mmol/L (132-148)
[2016-09-01 12:20] LABS: AST/SGOT 14 U/L (17-59); BILIRUBIN,TOTAL 0.5 mg/dL (0.2-1.3); BLOOD UREA NITROGEN 20 mg/dL (9-20); CARBON DIOXIDE 25 mmol/L (22-30); GFR AFRICAN-AMERICAN > 60; TOTAL PROTEIN 5.7 g/dL (6.3-8.3)
[2016-09-01 12:21] LABS: ALKALINE PHOSPHATASE 51 U/L (38-126); ALT/SGPT 24 U/L (21-72); CALCIUM 8.6 mg/dl (8.6-10.4); GLUCOSE,RANDOM 136 mg/dL (75-110)
[2016-09-01] MEDS ORDERED: Potassium Chloride 20 mEq ER Tab PO STA (22:33)
[2016-09-02] MEDS: Levothyroxine 75 MCG TAB PO SCH (06:03)
[2016-09-02] MEDS: Fluticasone-Salmeterol 250-50mcg Diskus INH SCH (07:19)
[2016-09-02 08:13] LABS: BASO # 0.1 K/uL (0.0-0.2); BASO % 0.7 % (0.0-2.0); EOS # 0.1 K/uL (0.0-0.7); EOS % 1.4 % (0.0-4.0); LYMPH % 27.6 % (20.0-40.0); MEAN CELL VOLUME 85.4 fL (80.0-94.0); MEAN CORPUSCULAR HEMOGLOBIN 26.7 pg (27.0-31.0); MEAN CORPUSCULAR HGB CONC 31.2 g/dL (33.0-37.0); MEAN PLATELET VOLUME 8.4 fL (7.2-11.7); MONO # 0.6 K/uL (0.0-0.8); MONO % 8.4 % (0.0-10.0); WHITE BLOOD COUNT 7.4 K/uL (4.8-10.8)
[2016-09-02 08:26] LABS: CHLORIDE 101 mmol/L (98-107)
[2016-09-02 08:27] LABS: POTASSIUM 3.7 mmol/L (3.6-5.2); SODIUM 140 mmol/L (132-148)
[2016-09-02 08:29] LABS: ALB/GLOB RATIO 1.1 (1.0-2.1); ALKALINE PHOSPHATASE 56 U/L (38-126); ALT/SGPT 24 U/L (21-72); AST/SGOT 12 U/L (17-59); BILIRUBIN,TOTAL 0.5 mg/dL (0.2-1.3); BLOOD UREA NITROGEN 25 mg/dL (9-20); CARBON DIOXIDE 26 mmol/L (22-30); GFR AFRICAN-AMERICAN > 60; TOTAL PROTEIN 5.9 g/dL (6.3-8.3)
[2016-09-02 08:30] LABS: CALCIUM 8.7 mg/dl (8.6-10.4); GLUCOSE,RANDOM 147 mg/dL (75-110)
[2016-09-02] MEDS: Calcium Carbonate 500 mg Chewable Antacid Tab PO SCH ×2 (09:05→18:50)
[2016-09-02] MEDS: Pantoprazole 40 mg EC Tab PO SCH (09:05)
[2016-09-02] MEDS: guaiFENesin DM 200 mg-20 mg/10 ml UD PO SCH ×3 (09:07→18:50)
[2016-09-02] MEDS: Divalproex 125 mg Sprinkle Capsule PO SCH ×2 (09:07→18:50)
--- NOTE | 2016-09-02 11:31 | CP.PCM.PN ---
Subjective - Date & Time of Evaluation Date of Evaluation: 09/02/16 Time of Evaluation: 11:28 - Subjective Subjective: PGY [address] Solis Pt is seen and examined at bedside. No acute events overnight. Patient is agitated and shouting about money in [place]. Patient denies having any CP, SOB , abd pain. Tolerating diet. 12 point ROS are negative except for the above mentioned. Objective - Vital Signs/Intake and Output Vital Signs (last 24 hours): Temp Pulse Resp BP Pulse Ox 98 F 78 20 100/60 98 09/02/16 08:00 09/02/16 08:00 09/02/16 08:00 09/02/16 08:00 09/02/16 08:00 Intake and Output: 09/02/16 09/02/16 06:59 18:59 Intake Total 150 Balance 150 - Medications Medications: Current Medications Acetaminophen (Tylenol 325mg Tab) 650 mg PO Q6 PRN PRN Reason: Pain, Mild (1-3) Aspirin (Aspirin Chewable) 81 mg PO DAILY [facility] Last Admin: 09/02/16 09:06 Dose: 81 mg Calcium Carbonate (Tums) 500 mg PO BID [facility] Last Admin: 09/02/16 09:05 Dose: 500 mg Diphenhydramine HCl (Benadryl) 25 mg PO Q6 PRN PRN Reason: Extra Pyramidal Symptoms Divalproex Sodium (Depakote Sprinkles) 125 mg PO BID [facility] Last Admin: 09/02/16 09:07 Dose: 125 mg Ferrous Sulfate (Feosol) 325 mg PO TID [facility] Last Admin: 09/02/16 09:07 Dose: 325 mg Guaifenesin/Dextromethorphan (Robitussin Dm) 10 ml PO TID [facility] Last Admin: 09/02/16 09:07 Dose: 10 ml Haloperidol (Haldol) 2 mg PO Q6 PRN PRN Reason: Moderate Agitation Last Admin: 09/01/16 18:09 Dose: 2 mg Haloperidol Lactate (Haldol) 2 mg IM Q6 PRN PRN Reason: Agitation Levothyroxine Sodium (Synthroid) 37.5 mcg PO DAILY@0630 [facility] Last Admin: 09/02/16 06:03 Dose: 37.5 mcg Lorazepam (Ativan) 1 mg IM Q6H PRN PRN Reason: Anxiety Last Admin: 08/30/16 22:13 Dose: 1 mg Metformin HCl (Glucophage) 1,000 mg PO BIDCC [facility] Last Admin: 09/02/16 09:00 Dose: 1,000 mg Pantoprazole Sodium (Protonix Ec Tab) 40 mg PO DAILY [facility] Last Admin: 09/02/16 09:05 Dose: 40 mg Quetiapine Fumarate (Seroquel) 100 mg PO HS [facility] Last Admin: 09/01/16 21:56 Dose: 100 mg Quetiapine Fumarate (Seroquel) 50 mg PO DAILY [facility] Last Admin: 09/02/16 09:06 Dose: 50 mg Rosuvastatin Calcium (Crestor) 5 mg PO HS [facility] Last Admin: 09/01/16 21:56 Dose: 5 mg Fluticasone/Salmeterol (Advair Diskus 250/50) 1 puff INH RQ12 [facility] Last Admin: 09/02/16 07:19 Dose: Not Given Tamsulosin HCl (Flomax) 0.4 mg PO DAILY [facility] Last Admin: 09/02/16 09:06 Dose: 0.4 mg - Labs Labs: 09/02/16 08:04 09/02/16 08:04 - Constitutional Appears: Non-toxic, No Acute Distress, Cachectic - Head Exam Head Exam: ATRAUMATIC - ENT Exam ENT Exam: Mucous Membranes Moist - Respiratory Exam Respiratory Exam: Clear to Ausculation Bilateral. absent: Rales, Rhonchi, Wheezes - Cardiovascular Exam Cardiovascular Exam: REGULAR RHYTHM, +S1, +S2 - GI/Abdominal Exam GI & Abdominal Exam: Soft, Normal Bowel Sounds. absent: Tenderness, Organomegaly - Extremities Exam Extremities Exam: absent: Pedal Edema, Tenderness - Neurological Exam Neurological Exam: Alert, Awake - Skin Skin Exam: Dry, Intact, Normal Color, Warm Assessment and Plan - Assessment and Plan (Free Text) Assessment: 1) Lumbar back pain Continue physical therapy. Activity as tolerated. Per neurosurgery, Dr. Acuña, patient does not need intervention for L2 fracture. No evidence of retropulsion to cord. Stable. Chronic Ortho and Neurosurgery recommend bed rest and physical therapy. CT confirms acute appearing L2 compression fracture, no retropulsion seen per report. Ill defined soft tissue density seen, ? edema. Would recommend attempt MRI (unsure if patient will tolerate and cooperate) for further visualization. * Neurosurgery Consulted, Dr. Rose. 08/11: Lumbar XRAY - 1. Age indeterminate acute superior endplate compression fracture in the L2 vertebral body with 4 mm retrolisthesis. 2. Mild multilevel degenerative disc disease, worse at L5-S1. see full report. * Consult Ortho, help appreciated - Dr. 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 Patient shouting this morning but pleasant when conversing. will continue current psych medications per Dr. Bajwa's recommendations Continue seroquel 50 mg po QD and seroquel 100 mg po HS and depakote sprinkles 125 mg po BID and remeron 7.5 po qhs per psych recs Haldol 2mg IM Q6 PRN, agitation Haldol 2mg PO Q6H PRN, moderate agitation 3) Depression No SI/HI. Monitor Psych Dr. Bajwa consulted, help appreciated. 4) Chest Pain Resolved ROMIs negative EKG with LBBB as prior EKGs have also shown Cardio consult - Dr. Marinelli - help appreciated ECHO - left ventricular is normal size. there is mild to moderate concentric left ventricular hypertrophy. the systolic function is midly to moderately impaired. septal hypokinesis. mild to moderate aortic regurgitation. mild pulmonary hypertension. (please see full report) 5) Nodular opacity in chest Pulm consult - Dr. Hayden - help appreciated Chest CT - extensive bilateral fine nodular interstitial infiltrate both lower lobes. dense pleural based consolidation right lower lobe. subpleural emphysema. mild centrilobular pulmonary emphysema. left upper lobe nodules. 7mm and 9mm. reccomend f/u noncontrast chest CT in 3 months. Multiple left upper lobe nodular calcifications, likely granulomatous. probable small airways disease posterior right upper lobe. findings are nonspecific and may reflect infection or inflammatory disease. Patient needs to f/u outpatient per Dr. Hayden for nodular opacity in chest + COPD. 6) COPD Pulm consult - Dr. Hayden - help appreciated Advair and Spiriva 7) DM RISS, accuchecks. Lantus 10U SC HS, Metformin 8) Hypothyroid Continue synthroid 37.5 mcg po qd. 9) Hx of cardiac disease Continue Eliquis, ASA, Crestor. 10) Prophylactic measure Protonix 40 mg PO daily Eliquis 2.5 mg Po BID Social work referral. -Labs ordered MWF. -PT rec -> DAPHNEY Disposition Case management is consulted: Pending rehab placement Case discussed with attending, Dr. Solis All Medical Management per Dr. Solis
--- NOTE | 2016-09-02 14:51 | CP.PCM.PN ---
Subjective - Date & Time of Evaluation Date of Evaluation: 09/02/16 Time of Evaluation: 07:00 - Subjective Subjective: clinically same Objective - Vital Signs/Intake and Output Vital Signs (last 24 hours): Temp Pulse Resp BP Pulse Ox 98 F 78 20 100/60 98 09/02/16 08:00 09/02/16 08:00 09/02/16 08:00 09/02/16 08:00 09/02/16 08:00 Intake and Output: 09/02/16 09/02/16 06:59 18:59 Intake Total 150 Balance 150 - Medications Medications: Current Medications Acetaminophen (Tylenol 325mg Tab) 650 mg PO Q6 PRN PRN Reason: Pain, Mild (1-3) Aspirin (Aspirin Chewable) 81 mg PO DAILY [facility] Last Admin: 09/02/16 09:06 Dose: 81 mg Calcium Carbonate (Tums) 500 mg PO BID [facility] Last Admin: 09/02/16 09:05 Dose: 500 mg Diphenhydramine HCl (Benadryl) 25 mg PO Q6 PRN PRN Reason: Extra Pyramidal Symptoms Divalproex Sodium (Depakote Sprinkles) 125 mg PO BID [facility] Last Admin: 09/02/16 09:07 Dose: 125 mg Ferrous Sulfate (Feosol) 325 mg PO TID [facility] Last Admin: 09/02/16 14:46 Dose: Not Given Guaifenesin/Dextromethorphan (Robitussin Dm) 10 ml PO TID [facility] Last Admin: 09/02/16 14:46 Dose: Not Given Haloperidol (Haldol) 2 mg PO Q6 PRN PRN Reason: Moderate Agitation Last Admin: 09/01/16 18:09 Dose: 2 mg Haloperidol Lactate (Haldol) 2 mg IM Q6 PRN PRN Reason: Agitation Levothyroxine Sodium (Synthroid) 37.5 mcg PO DAILY@0630 [facility] Last Admin: 09/02/16 06:03 Dose: 37.5 mcg Lorazepam (Ativan) 1 mg IM Q6H PRN PRN Reason: Anxiety Last Admin: 08/30/16 22:13 Dose: 1 mg [facility] Last Admin: 09/02/16 09:00 Dose: 1,000 mg Pantoprazole Sodium (Protonix Ec Tab) 40 mg PO DAILY [facility] Last Admin: 09/02/16 09:05 Dose: 40 mg Quetiapine Fumarate (Seroquel) 100 mg PO HS [facility] Last Admin: 09/01/16 21:56 Dose: 100 mg Quetiapine Fumarate (Seroquel) 50 mg PO DAILY [facility] Last Admin: 09/02/16 09:06 Dose: 50 mg Rosuvastatin Calcium (Crestor) 5 mg PO HS [facility] Last Admin: 09/01/16 21:56 Dose: 5 mg Fluticasone/Salmeterol (Advair Diskus 250/50) 1 puff INH RQ12 [facility] Last Admin: 09/02/16 07:19 Dose: Not Given Tamsulosin HCl (Flomax) 0.4 mg PO DAILY [facility] Last Admin: 09/02/16 09:06 Dose: 0.4 mg - Labs Labs: 09/02/16 08:04 09/02/16 08:04 - Constitutional Appears: Well - Head Exam Head Exam: ATRAUMATIC, NORMAL INSPECTION, NORMOCEPHALIC - Eye Exam Eye Exam: EOMI, Normal appearance, PERRL Pupil Exam: NORMAL ACCOMODATION, PERRL - ENT Exam ENT Exam: Mucous Membranes Moist, Normal Exam - Neck Exam Neck Exam: Full ROM, Normal Inspection. absent: Lymphadenopathy - Respiratory Exam Respiratory Exam: Decreased Breath Sounds - Cardiovascular Exam Cardiovascular Exam: REGULAR RHYTHM, +S1, +S2 - GI/Abdominal Exam GI & Abdominal Exam: Soft, Diminished Bowel Sounds - Rectal Exam Rectal Exam: Deferred Assessment and Plan (1) Abnormal CXR (chest x-ray) Status: Acute (2) COPD (chronic obstructive pulmonary disease) Status: Acute (3) COPD exacerbation Status: Acute (4) Cardiac disease Status: Acute (5) Depression Status: Acute (6) Diabetes Status: Acute
[2016-09-03] MEDS: Levothyroxine 75 MCG TAB PO SCH (06:03)
[2016-09-03] MEDS: Fluticasone-Salmeterol 250-50mcg Diskus INH SCH ×2 (08:08→20:43)
--- NOTE | 2016-09-03 10:17 | CP.PCM.PN ---
Subjective - Date & Time of Evaluation Date of Evaluation: 09/03/16 Time of Evaluation: 09:00 - Subjective Subjective: PGY [address] Solis Pt is seen and examined at bedside. No acute events overnight. Patient calm today. Patient denies having any CP, SOB, abd pain. Tolerating diet. 12 point ROS are negative except for the above mentioned. Objective - Vital Signs/Intake and Output Vital Signs (last 24 hours): Temp Pulse Resp BP Pulse Ox 98.5 F 74 22 114/63 97 09/03/16 08:00 09/03/16 08:00 09/03/16 08:00 09/03/16 08:00 09/03/16 08:00 Intake and Output: 09/03/16 09/03/16 06:59 18:59 Intake Total 200 200 Output Total 1 Balance 200 199 - Medications Medications: Current Medications Acetaminophen (Tylenol 325mg Tab) 650 mg PO Q6 PRN PRN Reason: Pain, Mild (1-3) Aspirin (Aspirin Chewable) 81 mg PO DAILY [facility] Last Admin: 09/02/16 09:06 Dose: 81 mg Calcium Carbonate (Tums) 500 mg PO BID [facility] Last Admin: 09/02/16 18:50 Dose: 500 mg Diphenhydramine HCl (Benadryl) 25 mg PO Q6 PRN PRN Reason: Extra Pyramidal Symptoms Divalproex Sodium (Depakote Sprinkles) 125 mg PO BID [facility] Last Admin: 09/02/16 18:50 Dose: 125 mg Ferrous Sulfate (Feosol) 325 mg PO TID [facility] Last Admin: 09/02/16 18:50 Dose: 325 mg Guaifenesin/Dextromethorphan (Robitussin Dm) 10 ml PO TID [facility] Last Admin: 09/02/16 18:50 Dose: 10 ml Haloperidol (Haldol) 2 mg PO Q6 PRN PRN Reason: Moderate Agitation Last Admin: 09/01/16 18:09 Dose: 2 mg Haloperidol Lactate (Haldol) 2 mg IM Q6 PRN PRN Reason: Agitation Levothyroxine Sodium (Synthroid) 37.5 mcg PO DAILY@0630 [facility] Last Admin: 09/03/16 06:03 Dose: 37.5 mcg [facility]) [facility] Last Admin: 09/03/16 08:30 Dose: 1,000 mg Pantoprazole Sodium (Protonix Ec Tab) 40 mg PO DAILY [facility] Last Admin: 09/02/16 09:05 Dose: 40 mg Quetiapine Fumarate (Seroquel) 100 mg PO HS [facility] Last Admin: 09/02/16 22:29 Dose: 100 mg Quetiapine Fumarate (Seroquel) 50 mg PO DAILY [facility] Last Admin: 09/02/16 09:06 Dose: 50 mg Rosuvastatin Calcium (Crestor) 5 mg PO HS [facility] Last Admin: 09/02/16 22:29 Dose: 5 mg Fluticasone/Salmeterol (Advair Diskus 250/50) 1 puff INH RQ12 [facility] Last Admin: 09/03/16 08:08 Dose: 1 puff Tamsulosin HCl (Flomax) 0.4 mg PO DAILY [facility] Last Admin: 09/02/16 09:06 Dose: 0.4 mg - Labs Labs: 09/02/16 08:04 09/02/16 08:04 - Constitutional Appears: Non-toxic, No Acute Distress, Cachectic, Chronically Ill - Head Exam Head Exam: NORMAL INSPECTION - Eye Exam Eye Exam: EOMI - ENT Exam ENT Exam: Mucous Membranes Moist - Respiratory Exam Respiratory Exam: Clear to Ausculation Bilateral, NORMAL BREATHING PATTERN. absent: Rales, Rhonchi, Wheezes - Cardiovascular Exam Cardiovascular Exam: REGULAR RHYTHM, +S1, +S2. absent: Gallop, Rubs, Murmur - GI/Abdominal Exam GI & Abdominal Exam: Soft, Normal Bowel Sounds. absent: Tenderness - Extremities Exam Extremities Exam: absent: Pedal Edema - Neurological Exam Neurological Exam: Alert, Awake - Psychiatric Exam Psychiatric exam: Normal Affect - Skin Skin Exam: Normal Color, Warm Assessment and Plan - Assessment and Plan (Free Text) Assessment: 1) Lumbar back pain Continue physical therapy. Activity as tolerated. Per neurosurgery, Dr. Acuña, patient does not need intervention for L2 fracture. No evidence of retropulsion to cord. Stable. Chronic Ortho and Neurosurgery recommend bed rest and physical therapy. CT confirms acute appearing L2 compression fracture, no retropulsion seen per report. Ill defined soft tissue density seen, ? edema. Would recommend attempt MRI (unsure if patient will tolerate and cooperate) for further visualization. * Neurosurgery Consulted, Dr. Rose. 08/11: Lumbar XRAY - 1. Age indeterminate acute superior endplate compression fracture in the L2 vertebral body with 4 mm retrolisthesis. 2. Mild multilevel degenerative disc disease, worse at L5-S1. see full report. * Consult Ortho, help appreciated - Dr. 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 Will continue current psych medications per Dr. Bajwa's recommendations Continue seroquel 50 mg po QD and seroquel 100 mg po HS and depakote sprinkles 125 mg po BID and remeron 7.5 po qhs per psych recs Haldol 2mg IM Q6 PRN, agitation Haldol 2mg PO Q6H PRN, moderate agitation 3) Depression No SI/HI. Monitor Psych Dr. Bajwa consulted, help appreciated. 4) Chest Pain Resolved ROMIs negative EKG with LBBB as prior EKGs have also shown Cardio consult - Dr. Marinelli - help appreciated ECHO - left ventricular is normal size. there is mild to moderate concentric left ventricular hypertrophy. the systolic function is midly to moderately impaired. septal hypokinesis. mild to moderate aortic regurgitation. mild pulmonary hypertension. (please see full report) 5) Nodular opacity in chest Pulm consult - Dr. Hayden - help appreciated Chest CT - extensive bilateral fine nodular interstitial infiltrate both lower lobes. dense pleural based consolidation right lower lobe. subpleural emphysema. mild centrilobular pulmonary emphysema. left upper lobe nodules. 7mm and 9mm. reccomend f/u noncontrast chest CT in 3 months. Multiple left upper lobe nodular calcifications, likely granulomatous. probable small airways disease posterior right upper lobe. findings are nonspecific and may reflect infection or inflammatory disease. Patient needs to f/u outpatient per Dr. Hayden for nodular opacity in chest + COPD. 6) COPD Pulm consult - Dr. Hayden - help appreciated Advair and Spiriva 7) DM RISS, accuchecks. Lantus 10U SC HS, Metformin 8) Hypothyroid Continue synthroid 37.5 mcg po qd. 9) Hx of cardiac disease Continue Eliquis, ASA, Crestor. 10) Prophylactic measure Protonix 40 mg PO daily Eliquis 2.5 mg Po BID Social work referral. -Labs ordered MWF. -PT rec -> [facility] Disposition Case management is consulted: Pending rehab placement Case discussed with attending, Dr. Solis All Medical Management per Dr. Solis
[2016-09-03] MEDS: Pantoprazole 40 mg EC Tab PO SCH (10:36)
[2016-09-03] MEDS: guaiFENesin DM 200 mg-20 mg/10 ml UD PO SCH ×3 (10:36→18:00)
[2016-09-03] MEDS: Divalproex 125 mg Sprinkle Capsule PO SCH ×2 (10:36→18:00)
[2016-09-03] MEDS: Calcium Carbonate 500 mg Chewable Antacid Tab PO SCH ×2 (10:37→18:00)
[2016-09-04] MEDS: Levothyroxine 75 MCG TAB PO SCH (06:34)
[2016-09-04] MEDS: Fluticasone-Salmeterol 250-50mcg Diskus INH SCH ×2 (08:24→19:40)
[2016-09-04 08:37] LABS: BASO # 0.1 K/uL (0.0-0.2); BASO % 0.9 % (0.0-2.0); EOS # 0.2 K/uL (0.0-0.7); EOS % 2.2 % (0.0-4.0); HEMATOCRIT 35.8 % (35.0-51.0); LYMPH # 2.1 K/uL (1.0-4.3); LYMPH % 29.7 % (20.0-40.0); MEAN CELL VOLUME 84.4 fL (80.0-94.0); MEAN CORPUSCULAR HEMOGLOBIN 27.1 pg (27.0-31.0); MEAN CORPUSCULAR HGB CONC 32.1 g/dL (33.0-37.0); MEAN PLATELET VOLUME 8.5 fL (7.2-11.7); MONO # 0.7 K/uL (0.0-0.8); MONO % 10.3 % (0.0-10.0); RED CELL DISTRIBUTION WIDTH 17.1 % (11.5-14.5)
[2016-09-04 08:53] LABS: CHLORIDE 104 mmol/L (98-107)
[2016-09-04 08:54] LABS: POTASSIUM 3.7 mmol/L (3.6-5.2); SODIUM 135 mmol/L (132-148)
[2016-09-04 08:56] LABS: AST/SGOT 13 U/L (17-59); BILIRUBIN,TOTAL 0.4 mg/dL (0.2-1.3); CARBON DIOXIDE 25 mmol/L (22-30); GFR AFRICAN-AMERICAN > 60
[2016-09-04 08:57] LABS: ALKALINE PHOSPHATASE 49 U/L (38-126); ALT/SGPT 23 U/L (21-72); BLOOD UREA NITROGEN 22 mg/dL (9-20); CALCIUM 8.6 mg/dl (8.6-10.4); GLUCOSE,RANDOM 86 mg/dL (75-110); TOTAL PROTEIN 5.6 g/dL (6.3-8.3)
[2016-09-04] MEDS: Pantoprazole 40 mg EC Tab PO SCH (09:35)
[2016-09-04] MEDS: Divalproex 125 mg Sprinkle Capsule PO SCH ×3 (09:36→17:14)
[2016-09-04] MEDS: guaiFENesin DM 200 mg-20 mg/10 ml UD PO SCH ×4 (09:36→17:14)
[2016-09-04] MEDS: Calcium Carbonate 500 mg Chewable Antacid Tab PO SCH ×3 (09:37→17:13)
--- NOTE | 2016-09-04 12:53 | CP.PCM.PN ---
Subjective - Date & Time of Evaluation Date of Evaluation: 09/04/16 Time of Evaluation: 12:51 - Subjective Subjective: PGY2 progress note for Dr. Solis Pt is seen and examined at bedside. No acute events overnight. patient denies having any CP, SOB, abd pain, N/V/d/c. Patient is tolerating diet per nurse. 12 point ROS are negative except for the above mentioned. Objective - Vital Signs/Intake and Output Vital Signs (last 24 hours): Temp Pulse Resp BP Pulse Ox 97.2 F L 72 20 106/60 96 09/03/16 23:32 09/03/16 23:32 09/03/16 23:32 09/03/16 23:32 09/03/16 23:32 Intake and Output: 09/04/16 09/04/16 06:59 18:59 Intake Total 240 Output Total 1 Balance 239 - Medications Medications: Current Medications Acetaminophen (Tylenol 325mg Tab) 650 mg PO Q6 PRN PRN Reason: Pain, Mild (1-3) Aspirin (Aspirin Chewable) 81 mg PO DAILY [facility] Last Admin: 09/04/16 09:35 Dose: 81 mg Calcium Carbonate (Tums) 500 mg PO BID [facility] Last Admin: 09/04/16 09:37 Dose: 500 mg Diphenhydramine HCl (Benadryl) 25 mg PO Q6 PRN PRN Reason: Extra Pyramidal Symptoms Divalproex Sodium (Depakote Sprinkles) 125 mg PO BID [facility] Last Admin: 09/04/16 09:36 Dose: 125 mg Ferrous Sulfate (Feosol) 325 mg PO TID [facility] Last Admin: 09/04/16 09:36 Dose: 325 mg Guaifenesin/Dextromethorphan (Robitussin Dm) 10 ml PO TID [facility] Last Admin: 09/04/16 09:36 Dose: 10 ml Haloperidol (Haldol) 2 mg PO Q6 PRN PRN Reason: Moderate Agitation Last Admin: 09/04/16 06:34 Dose: 2 mg Haloperidol Lactate (Haldol) 2 mg IM Q6 PRN PRN Reason: Agitation Levothyroxine Sodium (Synthroid) 37.5 mcg PO DAILY@0630 [facility] Last Admin: 09/04/16 06:34 Dose: 37.5 mcg [facility] Last Admin: 09/04/16 08:27 Dose: 1,000 mg Pantoprazole Sodium (Protonix Ec Tab) 40 mg PO DAILY [facility] Last Admin: 09/04/16 09:35 Dose: 40 mg Quetiapine Fumarate (Seroquel) 100 mg PO HS [facility] Last Admin: 09/03/16 21:30 Dose: 100 mg Quetiapine Fumarate (Seroquel) 50 mg PO DAILY [facility] Last Admin: 09/04/16 09:37 Dose: 50 mg Rosuvastatin Calcium (Crestor) 5 mg PO HS [facility] Last Admin: 09/03/16 21:26 Dose: 5 mg Fluticasone/Salmeterol (Advair Diskus 250/50) 1 puff INH RQ12 [facility] Last Admin: 09/04/16 08:24 Dose: 1 puff Tamsulosin HCl (Flomax) 0.4 mg PO DAILY [facility] Last Admin: 09/04/16 09:35 Dose: 0.4 mg - Labs Labs: 09/04/16 08:25 09/04/16 08:25 - Constitutional Appears: Non-toxic, No Acute Distress - Head Exam Head Exam: ATRAUMATIC - Eye Exam Eye Exam: EOMI - ENT Exam ENT Exam: Mucous Membranes Moist - Respiratory Exam Respiratory Exam: Clear to Ausculation Bilateral, NORMAL BREATHING PATTERN. absent: Accessory Muscle Use, Rales, Rhonchi, Wheezes, Respiratory Distress - Cardiovascular Exam Cardiovascular Exam: REGULAR RHYTHM, +S1, +S2 - GI/Abdominal Exam GI & Abdominal Exam: Soft, Normal Bowel Sounds. absent: Guarding, Rigid, Tenderness, Organomegaly - Extremities Exam Extremities Exam: absent: Pedal Edema, Tenderness - Neurological Exam Neurological Exam: Alert, Awake, Oriented x3 - Psychiatric Exam Psychiatric exam: Normal Affect, Normal Mood - Skin Skin Exam: Dry, Intact, Normal Color, Warm Assessment and Plan - Assessment and Plan (Free Text) Assessment: 1) Lumbar back pain Continue physical therapy. Continue physical therapy. Activity as tolerated. Per neurosurgery, Dr. Acuña, patient does not need intervention for L2 fracture. No evidence of retropulsion to cord. Stable. Chronic Ortho and Neurosurgery recommend bed rest and physical therapy. CT confirms acute appearing L2 compression fracture, no retropulsion seen per report. Ill defined soft tissue density seen, ? edema. Would recommend attempt MRI (unsure if patient will tolerate and cooperate) for further visualization. * Neurosurgery Consulted, Dr. Rose. 08/11: Lumbar XRAY - 1. Age indeterminate acute superior endplate compression fracture in the L2 vertebral body with 4 mm retrolisthesis. 2. Mild multilevel degenerative disc disease, worse at L5-S1. see full report. * Consult Ortho, help appreciated - Dr. 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 Will continue current psych medications per Dr. Bajwa's recommendations Continue seroquel 50 mg po QD and seroquel 100 mg po HS and depakote sprinkles 125 mg po BID and remeron 7.5 po qhs per psych recs Haldol 2mg IM Q6 PRN, agitation Haldol 2mg PO Q6H PRN, moderate agitation 3) Depression No SI/HI. Monitor Psych Dr. Bajwa consulted, help appreciated. 4) Chest Pain Resolved ROMIs negative EKG with LBBB as prior EKGs have also shown Cardio consult - Dr. Marinelli - help appreciated ECHO - left ventricular is normal size. there is mild to moderate concentric left ventricular hypertrophy. the systolic function is midly to moderately impaired. septal hypokinesis. mild to moderate aortic regurgitation. mild pulmonary hypertension. (please see full report) 5) Nodular opacity in chest Pulm consult - Dr. Hayden - help appreciated Chest CT - extensive bilateral fine nodular interstitial infiltrate both lower lobes. dense pleural based consolidation right lower lobe. subpleural emphysema. mild centrilobular pulmonary emphysema. left upper lobe nodules. 7mm and 9mm. reccomend f/u noncontrast chest CT in 3 months. Multiple left upper lobe nodular calcifications, likely granulomatous. probable small airways disease posterior right upper lobe. findings are nonspecific and may reflect infection or inflammatory disease. Patient needs to f/u outpatient per Dr. Hayden for nodular opacity in chest + COPD. 6) COPD Pulm consult - Dr. Hayden - help appreciated Advair and Spiriva 7) DM RISS, accuchecks. Lantus 10U SC HS, Metformin 8) Hypothyroid Continue synthroid 37.5 mcg po qd. 9) Hx of cardiac disease Continue Eliquis, ASA, Crestor. 10) Prophylactic measure Protonix 40 mg PO daily Eliquis 2.5 mg Po BID Social work referral. -Labs ordered MWF. -PT rec -> [facility] Disposition Case management is consulted: Pending rehab placement Case discussed with attending, Dr. Solis All Medical Management per Dr. Solis
--- NOTE | 2016-09-04 14:35 | CP.PCM.PN ---
Subjective - Date & Time of Evaluation Date of Evaluation: 09/04/16 Time of Evaluation: 09:00 - Subjective Subjective: clinically same Objective - Vital Signs/Intake and Output Vital Signs (last 24 hours): Temp Pulse Resp BP Pulse Ox 97.2 F L 72 20 106/60 96 09/03/16 23:32 09/03/16 23:32 09/03/16 23:32 09/03/16 23:32 09/03/16 23:32 Intake and Output: 09/04/16 09/04/16 06:59 18:59 Intake Total 240 Output Total 1 Balance 239 - Medications Medications: Current Medications Acetaminophen (Tylenol 325mg Tab) 650 mg PO Q6 PRN PRN Reason: Pain, Mild (1-3) Aspirin (Aspirin Chewable) 81 mg PO DAILY [facility] Last Admin: 09/04/16 09:35 Dose: 81 mg Calcium Carbonate (Tums) 500 mg PO BID [facility] Last Admin: 09/04/16 09:37 Dose: 500 mg Diphenhydramine HCl (Benadryl) 25 mg PO Q6 PRN PRN Reason: Extra Pyramidal Symptoms Divalproex Sodium (Depakote Sprinkles) 125 mg PO BID [facility] Last Admin: 09/04/16 09:36 Dose: 125 mg Ferrous Sulfate (Feosol) 325 mg PO TID [facility] Last Admin: 09/04/16 13:42 Dose: 325 mg Guaifenesin/Dextromethorphan (Robitussin Dm) 10 ml PO TID [facility] Last Admin: 09/04/16 13:42 Dose: 10 ml Haloperidol (Haldol) 2 mg PO Q6 PRN PRN Reason: Moderate Agitation Last Admin: 09/04/16 06:34 Dose: 2 mg Haloperidol Lactate (Haldol) 2 mg IM Q6 PRN PRN Reason: Agitation Levothyroxine Sodium (Synthroid) 37.5 mcg PO DAILY@0630 [facility] Last Admin: 09/04/16 06:34 Dose: 37.5 mcg Metformin HCl (Glucophage) 1,000 mg PO BIDCC [facility] Last Admin: 09/04/16 08:27 Dose: 1,000 mg Pantoprazole Sodium (Protonix Ec Tab) 40 mg PO DAILY [facility] Last Admin: 09/04/16 09:35 Dose: 40 mg Quetiapine Fumarate (Seroquel) 100 mg PO HS [facility] Last Admin: 09/03/16 21:30 Dose: 100 mg Quetiapine Fumarate (Seroquel) 50 mg PO DAILY [facility] Last Admin: 09/04/16 09:37 Dose: 50 mg Rosuvastatin Calcium (Crestor) 5 mg PO HS [facility] Last Admin: 09/03/16 21:26 Dose: 5 mg Fluticasone/Salmeterol (Advair Diskus 250/50) 1 puff INH RQ12 [facility] Last Admin: 09/04/16 08:24 Dose: 1 puff Tamsulosin HCl (Flomax) 0.4 mg PO DAILY [facility] Last Admin: 09/04/16 09:35 Dose: 0.4 mg - Labs Labs: 09/04/16 08:25 09/04/16 08:25 - Constitutional Appears: Well - Head Exam Head Exam: ATRAUMATIC, NORMAL INSPECTION, NORMOCEPHALIC - Eye Exam Eye Exam: EOMI, Normal appearance, PERRL Pupil Exam: NORMAL ACCOMODATION, PERRL - ENT Exam ENT Exam: Mucous Membranes Moist, Normal Exam - Neck Exam Neck Exam: Full ROM, Normal Inspection. absent: Lymphadenopathy - Respiratory Exam Respiratory Exam: Decreased Breath Sounds - Cardiovascular Exam Cardiovascular Exam: REGULAR RHYTHM, +S1, +S2 - GI/Abdominal Exam GI & Abdominal Exam: Soft, Diminished Bowel Sounds - Rectal Exam Rectal Exam: Deferred Assessment and Plan (1) Abnormal CXR (chest x-ray) Status: Acute (2) COPD (chronic obstructive pulmonary disease) Status: Acute (3) COPD exacerbation Status: Acute (4) Cardiac disease Status: Acute (5) Depression Status: Acute (6) Diabetes Status: Acute
[2016-09-05] MEDS: Levothyroxine 75 MCG TAB PO SCH (06:29)
[2016-09-05] MEDS: Fluticasone-Salmeterol 250-50mcg Diskus INH SCH ×2 (08:25→19:31)
[2016-09-05] MEDS: guaiFENesin DM 200 mg-20 mg/10 ml UD PO SCH ×3 (09:46→17:00)
[2016-09-05] MEDS: Pantoprazole 40 mg EC Tab PO SCH (09:46)
[2016-09-05] MEDS: Divalproex 125 mg Sprinkle Capsule PO SCH ×2 (09:46→17:01)
[2016-09-05] MEDS: Calcium Carbonate 500 mg Chewable Antacid Tab PO SCH ×2 (09:47→17:00)
--- NOTE | 2016-09-05 13:05 | CP.PCM.PN ---
Subjective - Date & Time of Evaluation Date of Evaluation: 09/05/16 Time of Evaluation: 07:00 - Subjective Subjective: clinically same Objective - Vital Signs/Intake and Output Vital Signs (last 24 hours): Temp Pulse Resp BP Pulse Ox 97.3 F L 61 20 93/51 L 98 09/05/16 07:56 09/05/16 07:56 09/05/16 07:56 09/05/16 07:56 09/05/16 07:56 Intake and Output: 09/05/16 09/05/16 06:59 18:59 Intake Total 1150 Output Total 1 Balance 1149 - Medications Medications: Current Medications Acetaminophen (Tylenol 325mg Tab) 650 mg PO Q6 PRN PRN Reason: Pain, Mild (1-3) Aspirin (Aspirin Chewable) 81 mg PO DAILY [facility] Last Admin: 09/05/16 09:46 Dose: 81 mg Calcium Carbonate (Tums) 500 mg PO BID [facility] Last Admin: 09/05/16 09:47 Dose: 500 mg Diphenhydramine HCl (Benadryl) 25 mg PO Q6 PRN PRN Reason: Extra Pyramidal Symptoms Divalproex Sodium (Depakote Sprinkles) 125 mg PO BID [facility] Last Admin: 09/05/16 09:46 Dose: 125 mg Ferrous Sulfate (Feosol) 325 mg PO TID [facility] Last Admin: 09/05/16 09:46 Dose: 325 mg Guaifenesin/Dextromethorphan (Robitussin Dm) 10 ml PO TID [facility] Last Admin: 09/05/16 09:46 Dose: 10 ml Haloperidol (Haldol) 2 mg PO Q6 PRN PRN Reason: Moderate Agitation Last Admin: 09/04/16 14:59 Dose: 2 mg Haloperidol Lactate (Haldol) 2 mg IM Q6 PRN PRN Reason: Agitation Last Admin: 09/05/16 02:31 Dose: 2 mg Levothyroxine Sodium (Synthroid) 37.5 mcg PO DAILY@0630 [facility] Last Admin: 09/05/16 06:29 Dose: 37.5 mcg [facility] Last Admin: 09/05/16 07:40 Dose: 1,000 mg Pantoprazole Sodium (Protonix Ec Tab) 40 mg PO DAILY [facility] Last Admin: 07/22/17 09:46 Dose: 40 mg Quetiapine Fumarate (Seroquel) 100 mg PO HS [facility] Last Admin: 09/04/16 21:44 Dose: 100 mg Quetiapine Fumarate (Seroquel) 50 mg PO DAILY [facility] Last Admin: 09/05/16 09:46 Dose: 50 mg Rosuvastatin Calcium (Crestor) 5 mg PO HS [facility] Last Admin: 09/04/16 21:44 Dose: 5 mg Fluticasone/Salmeterol (Advair Diskus 250/50) 1 puff INH RQ12 [facility] Last Admin: 09/05/16 08:25 Dose: Not Given Tamsulosin HCl (Flomax) 0.4 mg PO DAILY [facility] Last Admin: 09/05/16 09:46 Dose: 0.4 mg - Labs Labs: 09/04/16 08:25 09/04/16 08:25 - Constitutional Appears: Well - Head Exam Head Exam: ATRAUMATIC, NORMAL INSPECTION, NORMOCEPHALIC - Eye Exam Eye Exam: EOMI, Normal appearance, PERRL Pupil Exam: NORMAL ACCOMODATION, PERRL - ENT Exam ENT Exam: Mucous Membranes Moist, Normal Exam - Neck Exam Neck Exam: Full ROM, Normal Inspection. absent: Lymphadenopathy - Respiratory Exam Respiratory Exam: Decreased Breath Sounds - Cardiovascular Exam Cardiovascular Exam: REGULAR RHYTHM, +S1, +S2 - GI/Abdominal Exam GI & Abdominal Exam: Soft, Diminished Bowel Sounds - Rectal Exam Rectal Exam: Deferred Assessment and Plan (1) Abnormal CXR (chest x-ray) Status: Acute (2) COPD (chronic obstructive pulmonary disease) Status: Acute (3) COPD exacerbation Status: Acute (4) Cardiac disease Status: Acute (5) Depression Status: Acute (6) Diabetes Status: Acute - Assessment and Plan (Free Text) Plan: No acute event Tolerating diet Continue physical therapy Pain meds Continue aspirin Continue Haldol Accu-Cheks Metformin Physical therapy
[2016-09-06] MEDS: Levothyroxine 75 MCG TAB PO SCH (06:06)
[2016-09-06] MEDS: Fluticasone-Salmeterol 250-50mcg Diskus INH SCH ×2 (08:34→19:16)
[2016-09-06] MEDS: Divalproex 125 mg Sprinkle Capsule PO SCH ×3 (10:40→17:37)
[2016-09-06] MEDS: guaiFENesin DM 200 mg-20 mg/10 ml UD PO SCH ×4 (10:41→17:38)
[2016-09-06] MEDS: Pantoprazole 40 mg EC Tab PO SCH ×2 (10:41→11:34)
[2016-09-06] MEDS: Calcium Carbonate 500 mg Chewable Antacid Tab PO SCH ×2 (10:41→17:38)
--- NOTE | 2016-09-06 12:25 | CP.PCM.PN ---
Subjective - Date & Time of Evaluation Date of Evaluation: 09/06/16 Time of Evaluation: 08:00 - Subjective Subjective: clinically same Objective - Vital Signs/Intake and Output Vital Signs (last 24 hours): Temp Pulse Resp BP Pulse Ox 97.6 F 66 20 108/64 95 09/06/16 08:00 09/06/16 08:00 09/06/16 08:00 09/06/16 08:00 09/06/16 08:00 Intake and Output: 09/06/16 09/06/16 06:59 18:59 Intake Total 350 Balance 350 - Medications Medications: Current Medications Acetaminophen (Tylenol 325mg Tab) 650 mg PO Q6 PRN PRN Reason: Pain, Mild (1-3) Aspirin (Aspirin Chewable) 81 mg PO DAILY [facility] Last Admin: 09/06/16 11:33 Dose: 81 mg Calcium Carbonate (Tums) 500 mg PO BID [facility] Last Admin: 09/06/16 10:41 Dose: Not Given Diphenhydramine HCl (Benadryl) 25 mg PO Q6 PRN PRN Reason: Extra Pyramidal Symptoms Divalproex Sodium (Depakote Sprinkles) 125 mg PO BID [facility] Last Admin: 09/06/16 11:34 Dose: 125 mg Ferrous Sulfate (Feosol) 325 mg PO TID [facility] Last Admin: 09/06/16 11:33 Dose: 325 mg Guaifenesin/Dextromethorphan (Robitussin Dm) 10 ml PO TID [facility] Last Admin: 09/06/16 11:34 Dose: 10 ml Haloperidol (Haldol) 2 mg PO Q6 PRN PRN Reason: Moderate Agitation Last Admin: 09/06/16 11:35 Dose: 2 mg Haloperidol Lactate (Haldol) 2 mg IM Q6 PRN PRN Reason: Agitation Last Admin: 09/06/16 06:07 Dose: 2 mg Levothyroxine Sodium (Synthroid) 37.5 mcg PO DAILY@0630 [facility] Last Admin: 09/06/16 06:06 Dose: 37.5 mcg Metformin HCl (Glucophage) [facility] Last Admin: 09/06/16 11:32 Dose: Not Given Pantoprazole Sodium (Protonix Ec Tab) 40 mg PO DAILY [facility] Last Admin: 09/06/16 11:34 Dose: 40 mg Quetiapine Fumarate (Seroquel) 100 mg PO HS [facility] Last Admin: 09/05/16 21:41 Dose: 100 mg Quetiapine Fumarate (Seroquel) 50 mg PO DAILY [facility] Last Admin: 09/06/16 11:36 Dose: 50 mg Rosuvastatin Calcium (Crestor) 5 mg PO HS [facility] Last Admin: 09/05/16 21:41 Dose: 5 mg Fluticasone/Salmeterol (Advair Diskus 250/50) 1 puff INH RQ12 [facility] Last Admin: 09/06/16 08:34 Dose: Not Given Tamsulosin HCl (Flomax) 0.4 mg PO DAILY [facility] Last Admin: 09/06/16 11:34 Dose: 0.4 mg - Labs Labs: 09/04/16 08:25 09/04/16 08:25 - Constitutional Appears: Well - Head Exam Head Exam: ATRAUMATIC, NORMAL INSPECTION, NORMOCEPHALIC - Eye Exam Eye Exam: EOMI, Normal appearance, PERRL Pupil Exam: NORMAL ACCOMODATION, PERRL - ENT Exam ENT Exam: Mucous Membranes Moist, Normal Exam - Neck Exam Neck Exam: Full ROM, Normal Inspection. absent: Lymphadenopathy - Respiratory Exam Respiratory Exam: Decreased Breath Sounds - Cardiovascular Exam Cardiovascular Exam: REGULAR RHYTHM, +S1, +S2. absent: Murmur - GI/Abdominal Exam GI & Abdominal Exam: Soft, Diminished Bowel Sounds - Rectal Exam Rectal Exam: Deferred Assessment and Plan (1) Abnormal CXR (chest x-ray) Status: Acute (2) COPD (chronic obstructive pulmonary disease) Status: Acute (3) COPD exacerbation Status: Acute (4) Cardiac disease Status: Acute (5) Depression Status: Acute (6) Diabetes Status: Acute - Assessment and Plan (Free Text) Plan: Patient seen and examined at bedside Patient comfortable No acute event Tolerating diet Pain meds Continue aspirin Continue Haldol Accu-Cheks Metformin Physical therapy Seroquel Statins
[2016-09-07] MEDS: Levothyroxine 75 MCG TAB PO SCH (06:04)
[2016-09-07] MEDS: Fluticasone-Salmeterol 250-50mcg Diskus INH SCH ×2 (07:29→19:06)
[2016-09-07 07:45] LABS: CHLORIDE 104 mmol/L (98-107)
[2016-09-07 07:46] LABS: SODIUM 142 mmol/L (132-148)
[2016-09-07 07:47] LABS: POTASSIUM 4.3 mmol/L (3.6-5.2)
[2016-09-07 07:49] LABS: ALB/GLOB RATIO 1.1 (1.0-2.1); ALKALINE PHOSPHATASE 51 U/L (38-126); ALT/SGPT 20 U/L (21-72); AST/SGOT 14 U/L (17-59); BILIRUBIN,TOTAL 0.5 mg/dL (0.2-1.3); BLOOD UREA NITROGEN 23 mg/dL (9-20); CARBON DIOXIDE 28 mmol/L (22-30); GFR AFRICAN-AMERICAN > 60; GLUCOSE,RANDOM 109 mg/dL (75-110); TOTAL PROTEIN 5.9 g/dL (6.3-8.3)
[2016-09-07 07:50] LABS: CALCIUM 8.6 mg/dl (8.6-10.4)
[2016-09-07 07:57] LABS: BASO % 0.5 % (0.0-2.0); EOS # 0.1 K/uL (0.0-0.7); EOS % 1.6 % (0.0-4.0); HEMATOCRIT 36.8 % (35.0-51.0); LYMPH # 1.4 K/uL (1.0-4.3); LYMPH % 24.8 % (20.0-40.0); MEAN CELL VOLUME 84.4 fL (80.0-94.0); MEAN CORPUSCULAR HEMOGLOBIN 27.4 pg (27.0-31.0); MEAN CORPUSCULAR HGB CONC 32.4 g/dL (33.0-37.0); MEAN PLATELET VOLUME 8.4 fL (7.2-11.7); MONO # 0.6 K/uL (0.0-0.8); MONO % 11.5 % (0.0-10.0); NRBC % 0.1 % (0.0-2.0); RED CELL DISTRIBUTION WIDTH 17.1 % (11.5-14.5); WHITE BLOOD COUNT 5.5 K/uL (4.8-10.8)
[2016-09-07] MEDS: Divalproex 125 mg Sprinkle Capsule PO SCH ×2 (10:39→17:43)
[2016-09-07] MEDS: Pantoprazole 40 mg EC Tab PO SCH (10:39)
[2016-09-07] MEDS: Calcium Carbonate 500 mg Chewable Antacid Tab PO SCH ×2 (10:40→17:43)
[2016-09-07] MEDS: guaiFENesin DM 200 mg-20 mg/10 ml UD PO SCH ×4 (10:44→17:42)
--- NOTE | 2016-09-07 15:06 | CP.PCM.PN ---
Subjective - Date & Time of Evaluation Date of Evaluation: 09/07/16 Time of Evaluation: 15:01 - Subjective Subjective: PGY2 progress note for Dr. Solis Pt is seen and examined at bedside. No acute events overnight. Patient is sitting comfortably in chair today. Patient denies having any CP, SOB, abd pain , N/v/D/C. 12 point ROS are negative except for the above mentioned. Objective - Vital Signs/Intake and Output Vital Signs (last 24 hours): Temp Pulse Resp BP Pulse Ox 97.4 F L 68 20 108/65 97 09/07/16 07:00 09/07/16 07:00 09/07/16 07:00 09/07/16 07:00 09/07/16 07:00 Intake and Output: 09/07/16 09/07/16 06:59 18:59 Intake Total 340 300 Output Total 300 Balance 340 0 - Medications Medications: Current Medications Acetaminophen (Tylenol 325mg Tab) 650 mg PO Q6 PRN PRN Reason: Pain, Mild (1-3) Aspirin (Aspirin Chewable) 81 mg PO DAILY [facility] Last Admin: 09/07/16 10:39 Dose: 81 mg Calcium Carbonate (Tums) 500 mg PO BID [facility] Last Admin: 09/07/16 10:40 Dose: 500 mg Diphenhydramine HCl (Benadryl) 25 mg PO Q6 PRN PRN Reason: Extra Pyramidal Symptoms Divalproex Sodium (Depakote Sprinkles) 125 mg PO BID [facility] Last Admin: 09/07/16 10:39 Dose: 125 mg Ferrous Sulfate (Feosol) 325 mg PO TID [facility] Last Admin: 09/07/16 14:25 Dose: 325 mg Guaifenesin/Dextromethorphan (Robitussin Dm) 10 ml PO TID [facility] Last Admin: 09/07/16 14:29 Dose: 10 ml Haloperidol (Haldol) 2 mg PO Q6 PRN PRN Reason: Moderate Agitation Last Admin: 09/07/16 06:04 Dose: 2 mg Haloperidol Lactate (Haldol) 2 mg IM Q6 PRN PRN Reason: Agitation Last Admin: 09/06/16 06:07 Dose: 2 mg Levothyroxine Sodium (Synthroid) 37.5 mcg PO DAILY@0630 [facility] Last Admin: 09/07/16 06:04 Dose: 37.5 mcg Metformin HCl (Glucophage) 1,000 mg PO BIDCC [facility] Last Admin: 09/07/16 10:39 Dose: 1,000 mg Pantoprazole Sodium (Protonix Ec Tab) 40 mg PO DAILY [facility] Last Admin: 09/07/16 10:39 Dose: 40 mg Quetiapine Fumarate (Seroquel) 100 mg PO HS [facility] Last Admin: 09/06/16 21:31 Dose: 100 mg Quetiapine Fumarate (Seroquel) 50 mg PO DAILY [facility] Last Admin: 09/07/16 10:51 Dose: 50 mg Rosuvastatin Calcium (Crestor) 5 mg PO HS [facility] Last Admin: 09/06/16 22:03 Dose: 5 mg Fluticasone/Salmeterol (Advair Diskus 250/50) 1 puff INH RQ12 [facility] Last Admin: 09/07/16 07:29 Dose: Not Given Tamsulosin HCl (Flomax) 0.4 mg PO DAILY [facility] Last Admin: 09/07/16 10:39 Dose: 0.4 mg - Labs Labs: 09/07/16 07:28 09/07/16 07:28 - Constitutional Appears: Non-toxic, Cachectic - Head Exam Head Exam: ATRAUMATIC - Eye Exam Eye Exam: EOMI - ENT Exam ENT Exam: Mucous Membranes Moist - Respiratory Exam Respiratory Exam: Clear to Ausculation Bilateral. absent: Accessory Muscle Use , Rales, Rhonchi, Wheezes, Respiratory Distress - Cardiovascular Exam Cardiovascular Exam: REGULAR RHYTHM, +S1, +S2 - GI/Abdominal Exam GI & Abdominal Exam: Soft, Normal Bowel Sounds. absent: Firm, Guarding, Rigid, Tenderness, Organomegaly - Extremities Exam Extremities Exam: absent: Pedal Edema, Tenderness - Neurological Exam Neurological Exam: Alert, Awake, Oriented x3 - Psychiatric Exam Psychiatric exam: Normal Affect, Normal Mood - Skin Skin Exam: Dry, Intact, Normal Color, Warm Assessment and Plan - Assessment and Plan (Free Text) Assessment: 1) Lumbar back pain Physical therapy as tolerated. Continue Out of bed to chair. Per neurosurgery, Dr. Acuña, patient does not need intervention for L2 fracture. No evidence of retropulsion to cord. Stable. Chronic Ortho and Neurosurgery recommend bed rest and physical therapy. CT confirms acute appearing L2 compression fracture, no retropulsion seen per report. Ill defined soft tissue density seen, ? edema. Would recommend attempt MRI (unsure if patient will tolerate and cooperate) for further visualization. * Neurosurgery Consulted, Dr. Rose. 08/11: Lumbar XRAY - 1. Age indeterminate acute superior endplate compression fracture in the L2 vertebral body with 4 mm retrolisthesis. 2. Mild multilevel degenerative disc disease, worse at L5-S1. see full report. * Consult Ortho, help appreciated - Dr. 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 Will continue current psych medications per Dr. Bajwa's recommendations Continue seroquel 50 mg po QD and seroquel 100 mg po HS and depakote sprinkles 125 mg po BID and remeron 7.5 po qhs per psych recs Haldol 2mg IM Q6 PRN, agitation Haldol 2mg PO Q6H PRN, moderate agitation 3) Depression No SI/HI. Monitor Psych Dr. Bajwa consulted, help appreciated. 4) Chest Pain Resolved ROMIs negative EKG with LBBB as prior EKGs have also shown Cardio consult - Dr. Marinelli - help appreciated ECHO - left ventricular is normal size. there is mild to moderate concentric left ventricular hypertrophy. the systolic function is midly to moderately impaired. septal hypokinesis. mild to moderate aortic regurgitation. mild pulmonary hypertension. (please see full report) 5) Nodular opacity in chest Pulm consult - Dr. Hayden - help appreciated Chest CT - extensive bilateral fine nodular interstitial infiltrate both lower lobes. dense pleural based consolidation right lower lobe. subpleural emphysema. mild centrilobular pulmonary emphysema. left upper lobe nodules. 7mm and 9mm. reccomend f/u noncontrast chest CT in 3 months. Multiple left upper lobe nodular calcifications, likely granulomatous. probable small airways disease posterior right upper lobe. findings are nonspecific and may reflect infection or inflammatory disease. Patient needs to f/u outpatient per Dr. Hayden for nodular opacity in chest + COPD. 6) COPD Pulm consult - Dr. Hayden - help appreciated Advair and Spiriva 7) DM RISS, accuchecks. Lantus 10U SC HS, Metformin 8) Hypothyroid Continue synthroid 37.5 mcg po qd. 9) Hx of cardiac disease Continue Eliquis, ASA, Crestor. 10) Prophylactic measure Protonix 40 mg PO daily Eliquis 2.5 mg Po BID Social work referral. -Labs ordered MWF. -PT rec -> [facility] Disposition Case management is consulted: Pending rehab placement. Patient must not have any behavioral disturbances for 1 week and be cleared by psych for placement to rehab [facility] per Dr. Solis
--- NOTE | 2016-09-07 15:50 | CP.PCM.PN ---
Subjective - Date & Time of Evaluation Date of Evaluation: 09/07/16 Time of Evaluation: 07:20 - Subjective Subjective: clinically same Objective - Vital Signs/Intake and Output Vital Signs (last 24 hours): Temp Pulse Resp BP Pulse Ox 97.4 F L 68 20 108/65 97 09/07/16 07:00 09/07/16 07:00 09/07/16 07:00 09/07/16 07:00 09/07/16 07:00 Intake and Output: 09/07/16 09/07/16 06:59 18:59 Intake Total 340 300 Output Total 300 Balance 340 0 - Medications Medications: Current Medications Acetaminophen (Tylenol 325mg Tab) 650 mg PO Q6 PRN PRN Reason: Pain, Mild (1-3) Aspirin (Aspirin Chewable) 81 mg PO DAILY [facility] Last Admin: 09/07/16 10:39 Dose: 81 mg Calcium Carbonate (Tums) 500 mg PO BID [facility] Last Admin: 09/07/16 10:40 Dose: 500 mg Diphenhydramine HCl (Benadryl) 25 mg PO Q6 PRN PRN Reason: Extra Pyramidal Symptoms Divalproex Sodium (Depakote Sprinkles) 125 mg PO BID [facility] Last Admin: 09/07/16 10:39 Dose: 125 mg Ferrous Sulfate (Feosol) 325 mg PO TID [facility] Last Admin: 09/07/16 14:25 Dose: 325 mg Guaifenesin/Dextromethorphan (Robitussin Dm) 10 ml PO TID [facility] Last Admin: 09/07/16 14:29 Dose: 10 ml Haloperidol (Haldol) 2 mg PO Q6 PRN PRN Reason: Moderate Agitation Last Admin: 09/07/16 06:04 Dose: 2 mg Haloperidol Lactate (Haldol) 2 mg IM Q6 PRN PRN Reason: Agitation Last Admin: 09/06/16 06:07 Dose: 2 mg Levothyroxine Sodium (Synthroid) 37.5 mcg PO DAILY@0630 [facility] Last Admin: 09/07/16 06:04 Dose: 37.5 mcg [facility] Last Admin: 09/07/16 10:39 Dose: 1,000 mg Pantoprazole Sodium (Protonix Ec Tab) 40 mg PO DAILY [facility] Last Admin: 09/07/16 10:39 Dose: 40 mg Quetiapine Fumarate (Seroquel) 100 mg PO HS [facility] Last Admin: 09/06/16 21:31 Dose: 100 mg Quetiapine Fumarate (Seroquel) 50 mg PO DAILY [facility] Last Admin: 09/07/16 10:51 Dose: 50 mg Rosuvastatin Calcium (Crestor) 5 mg PO HS [facility] Last Admin: 09/06/16 22:03 Dose: 5 mg Fluticasone/Salmeterol (Advair Diskus 250/50) 1 puff INH RQ12 [facility] Last Admin: 09/07/16 07:29 Dose: Not Given Tamsulosin HCl (Flomax) 0.4 mg PO DAILY [facility] Last Admin: 09/07/16 10:39 Dose: 0.4 mg - Labs Labs: 09/07/16 07:28 09/07/16 07:28 - Constitutional Appears: Well - Head Exam Head Exam: ATRAUMATIC, NORMAL INSPECTION, NORMOCEPHALIC - Eye Exam Eye Exam: EOMI, Normal appearance, PERRL Pupil Exam: NORMAL ACCOMODATION, PERRL - ENT Exam ENT Exam: Mucous Membranes Moist, Normal Exam - Neck Exam Neck Exam: Full ROM, Normal Inspection. absent: Lymphadenopathy - Respiratory Exam Respiratory Exam: Decreased Breath Sounds - Cardiovascular Exam Cardiovascular Exam: REGULAR RHYTHM, +S1, +S2 - GI/Abdominal Exam GI & Abdominal Exam: Soft, Diminished Bowel Sounds - Rectal Exam Rectal Exam: Deferred Assessment and Plan (1) Abnormal CXR (chest x-ray) Status: Acute (2) COPD (chronic obstructive pulmonary disease) Status: Acute (3) COPD exacerbation Status: Acute (4) Cardiac disease Status: Acute (5) Depression Status: Acute (6) Diabetes Status: Acute
[2016-09-08] MEDS: Levothyroxine 75 MCG TAB PO SCH (07:06)
[2016-09-08] MEDS: Fluticasone-Salmeterol 250-50mcg Diskus INH SCH (07:22)
[2016-09-08] MEDS: Pantoprazole 40 mg EC Tab PO SCH (09:10)
[2016-09-08] MEDS: Divalproex 125 mg Sprinkle Capsule PO SCH ×2 (09:11→18:21)
[2016-09-08] MEDS: guaiFENesin DM 200 mg-20 mg/10 ml UD PO SCH ×3 (09:11→18:07)
[2016-09-08] MEDS: Calcium Carbonate 500 mg Chewable Antacid Tab PO SCH ×2 (09:11→18:07)
--- NOTE | 2016-09-08 14:22 | CP.PCM.PN ---
<Susy Leigh - Last Filed: 09/08/16 14:02> Subjective - Date & Time of Evaluation Date of Evaluation: 09/08/16 Time of Evaluation: 09:00 - Subjective Subjective: PGY3 Medicine Progress note for Dr. Solis Patient is seen and examined at bedside. No acute events overnight. Patient denies having any CP, abd pain, N/V/D/C. Patient is tolerating diet and is alert and oriented to person, place, year today. Objective - Vital Signs/Intake and Output Vital Signs (last 24 hours): Temp Pulse Resp BP Pulse Ox 97.4 F L 59 L 20 101/62 100 09/08/16 07:00 09/08/16 07:00 09/08/16 07:00 09/08/16 07:00 09/08/16 07:00 Intake and Output: 09/08/16 09/08/16 06:59 18:59 Intake Total 400 100 Balance 400 100 - Medications Medications: Current Medications Acetaminophen (Tylenol 325mg Tab) 650 mg PO Q6 PRN PRN Reason: Pain, Mild (1-3) Aspirin (Aspirin Chewable) 81 mg PO DAILY [facility] Last Admin: 09/08/16 09:11 Dose: 81 mg Calcium Carbonate (Tums) 500 mg PO BID [facility] Last Admin: 09/08/16 09:11 Dose: 500 mg Diphenhydramine HCl (Benadryl) 25 mg PO Q6 PRN PRN Reason: Extra Pyramidal Symptoms Divalproex Sodium (Depakote Sprinkles) 125 mg PO BID [facility] Last Admin: 09/08/16 09:11 Dose: 125 mg Ferrous Sulfate (Feosol) 325 mg PO TID [facility] Last Admin: 09/08/16 13:12 Dose: 325 mg Guaifenesin/Dextromethorphan (Robitussin Dm) 10 ml PO TID [facility] Last Admin: 09/08/16 13:12 Dose: 10 ml Haloperidol (Haldol) 2 mg PO Q6 PRN PRN Reason: Moderate Agitation Last Admin: 09/07/16 06:04 Dose: 2 mg Haloperidol Lactate (Haldol) 2 mg IM Q6 PRN PRN Reason: Agitation Last Admin: 09/06/16 06:07 Dose: 2 mg Levothyroxine Sodium (Synthroid) 37.5 mcg PO DAILY@0630 [facility] Last Admin: 09/08/16 07:06 Dose: 37.5 mcg Metformin HCl (Glucophage) 1,000 mg PO BIDCC [facility] Last Admin: 09/08/16 09:11 Dose: 1,000 mg Pantoprazole Sodium (Protonix Ec Tab) 40 mg PO DAILY [facility] Last Admin: 09/08/16 09:10 Dose: 40 mg Quetiapine Fumarate (Seroquel) 100 mg PO HS [facility] Last Admin: 09/07/16 21:14 Dose: 100 mg Quetiapine Fumarate (Seroquel) 50 mg PO DAILY [facility] Last Admin: 09/08/16 09:11 Dose: 50 mg Rosuvastatin Calcium (Crestor) 5 mg PO HS [facility] Last Admin: 09/07/16 21:16 Dose: 5 mg Fluticasone/Salmeterol (Advair Diskus 250/50) 1 puff INH RQ12 [facility] Last Admin: 09/08/16 07:22 Dose: Not Given Tamsulosin HCl (Flomax) 0.4 mg PO DAILY [facility] Last Admin: 09/08/16 09:11 Dose: 0.4 mg - Labs Labs: 09/07/16 07:28 09/07/16 07:28 - Constitutional Appears: No Acute Distress, Cachectic, Chronically Ill - Head Exam Head Exam: NORMAL INSPECTION, NORMOCEPHALIC - Eye Exam Eye Exam: EOMI, Normal appearance - ENT Exam ENT Exam: Mucous Membranes Moist - Neck Exam Neck Exam: Full ROM, Normal Inspection - Respiratory Exam Respiratory Exam: Clear to Ausculation Bilateral, NORMAL BREATHING PATTERN - Cardiovascular Exam Cardiovascular Exam: REGULAR RHYTHM, +S1, +S2 - GI/Abdominal Exam GI & Abdominal Exam: Soft. absent: Distended, Tenderness - Extremities Exam Extremities Exam: Full ROM - Neurological Exam Neurological Exam: Alert, Awake, Oriented x3 - Psychiatric Exam Psychiatric exam: Normal Affect, Normal Mood - Skin Skin Exam: Dry, Normal Color, Warm Assessment and Plan - Assessment and Plan (Free Text) Assessment: 1) L2 Compression Fracture Consult Ortho, help appreciated - Dr. Villareal / Tad Akbar Consult neurosurgery- help appreciated- Dr. Chavez Per neurosurgery, Dr. Acuña, patient does not need intervention for L2 fracture. No evidence of retropulsion to cord. Stable. Chronic. Ortho and Neurosurgery recommend bed rest and physical therapy. Physical therapy as tolerated. Continue Out of bed to chair. Imaging: CT confirms acute appearing L2 compression fracture, no retropulsion seen per report. Ill defined soft tissue density seen, ? edema. Would recommend attempt MRI (unsure if patient will tolerate and cooperate) for further visualization. * Neurosurgery Consulted, Dr. Rose. Lumbar XRAY 08/11: - 1. Age indeterminate acute superior endplate compression fracture in the L2 vertebral body with 4 mm retrolisthesis. 2. Mild multilevel degenerative disc disease, worse at L5-S1. see full report. 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 Will continue current psych medications per Dr. Bajwa's recommendations Continue seroquel 50 mg po QD and seroquel 100 mg po HS and depakote sprinkles 125 mg po BID per psych recs Haldol 2mg IM Q6 PRN, agitation Haldol 2mg PO Q6H PRN, moderate agitation Patient off Remeron since 07/31/16. Remeron recommended by psych. However, patient's mood stable. Will add as needed. 3) Depression No SI/HI. Monitor Psych Dr. Bajwa consulted, help appreciated. Management as above 4) Chest Pain Resolved. As per Dr. Marinelli, likely secondary to [employer] as per consult 07/23/16. ROMIs negative EKG with LBBB as prior EKGs have also shown Cardio consult - Dr. Marinelli - help appreciated ECHO - left ventricular is normal size. there is mild to moderate concentric left ventricular hypertrophy. the systolic function is midly to moderately impaired. septal hypokinesis. mild to moderate aortic regurgitation. mild pulmonary hypertension. (please see full report) 5) Nodular opacity in chest Pulm consult - Dr. Hayden - help appreciated Chest CT - extensive bilateral fine nodular interstitial infiltrate both lower lobes. dense pleural based consolidation right lower lobe. subpleural emphysema. mild centrilobular pulmonary emphysema. left upper lobe nodules. 7mm and 9mm. reccomend f/u noncontrast chest CT in 3 months. Multiple left upper lobe nodular calcifications, likely granulomatous. probable small airways disease posterior right upper lobe. findings are nonspecific and may reflect infection or inflammatory disease. Patient needs to f/u outpatient per Dr. Hayden for nodular opacity in chest + COPD. 6) COPD Pulm consult - Dr. Ciechanoski - help appreciated Advair and Spiriva 7) DM RISS, accuchecks. Lantus 10U SC HS, Metformin 8) Hypothyroid Continue synthroid 37.5 mcg po qd. 9) Hx of cardiac disease Continue Eliquis, ASA, Crestor. 10) Prophylactic measure Protonix 40 mg PO daily Eliquis 2.5 mg Po BID Social work referral. -Labs ordered MWF. -PT rec -> [facility] Disposition Case management is consulted: Pending rehab placement. Patient must not have any behavioral disturbances for 1 week and be cleared by psych for placement to rehab [facility] Medical Management per Dr. Solis <Perla Solis S - Last Filed: 09/08/16 18:09> Objective - Vital Signs/Intake and Output Vital Signs (last 24 hours): Temp Pulse Resp BP Pulse Ox 97.2 F L 64 20 113/60 100 09/08/16 15:39 09/08/16 15:39 09/08/16 15:39 09/08/16 15:39 09/08/16 15:39 Intake and Output: 09/08/16 09/08/16 06:59 18:59 Intake Total 400 100 Balance 400 100 - Medications Medications: Current Medications Acetaminophen (Tylenol 325mg Tab) 650 mg PO Q6 PRN PRN Reason: Pain, Mild (1-3) Apixaban (Eliquis) 2.5 mg PO BID [facility] Last Admin: 09/08/16 18:07 Dose: 2.5 mg Aspirin (Aspirin Chewable) 81 mg PO DAILY [facility] Last Admin: 09/08/16 09:11 Dose: 81 mg Calcium Carbonate (Tums) 500 mg PO BID [facility] Last Admin: 09/08/16 18:07 Dose: 500 mg Diphenhydramine HCl (Benadryl) 25 mg PO Q6 PRN PRN Reason: Extra Pyramidal Symptoms Divalproex Sodium (Depakote Sprinkles) 125 mg PO BID [facility] Last Admin: 09/08/16 09:11 Dose: 125 mg Ferrous Sulfate (Feosol) 325 mg PO TID [facility] Last Admin: 09/08/16 18:07 Dose: 325 mg Guaifenesin/Dextromethorphan (Robitussin Dm) 10 ml PO TID [facility] Last Admin: 09/08/16 18:07 Dose: 10 ml Haloperidol (Haldol) 2 mg PO Q6 PRN PRN Reason: Moderate Agitation Last Admin: 09/07/16 06:04 Dose: 2 mg Haloperidol Lactate (Haldol) 2 mg IM Q6 PRN PRN Reason: Agitation Last Admin: 09/06/16 06:07 Dose: 2 mg Levothyroxine Sodium (Synthroid) 37.5 mcg PO DAILY@0630 [facility] Last Admin: 09/08/16 07:06 Dose: 37.5 mcg Metformin HCl (Glucophage) 1,000 mg PO BIDCC [facility] Last Admin: 09/08/16 18:07 Dose: 1,000 mg Pantoprazole Sodium (Protonix Ec Tab) 40 mg PO DAILY [facility] Last Admin: 09/08/16 09:10 Dose: 40 mg Quetiapine Fumarate (Seroquel) 100 mg PO HS [facility] Last Admin: 09/07/16 21:14 Dose: 100 mg Quetiapine Fumarate (Seroquel) 50 mg PO DAILY [facility] Last Admin: 09/08/16 09:11 Dose: 50 mg Rosuvastatin Calcium (Crestor) 5 mg PO HS [facility] Last Admin: 09/07/16 21:16 Dose: 5 mg Fluticasone/Salmeterol (Advair Diskus 250/50) 1 puff INH RQ12 [facility] Last Admin: 09/08/16 07:22 Dose: Not Given Tamsulosin HCl (Flomax) 0.4 mg PO DAILY [facility] Last Admin: 09/08/16 09:11 Dose: 0.4 mg Tiotropium [place] (Spiriva) 18 mcg INH RQ24 [facility] - Labs Labs: 09/07/16 07:28 09/07/16 07:28 Assessment and Plan (1) Abnormal CXR (chest x-ray) Status: Acute (2) COPD (chronic obstructive pulmonary disease) Status: Acute (3) COPD exacerbation Status: Acute (4) Cardiac disease Status: Acute (5) Depression Status: Acute (6) Diabetes Status: Acute Attending/Attestation - Attestation I have personally seen and examined this patient.: Yes I have fully participated in the care of the patient.: Yes I have reviewed all pertinent clinical information, including history, physical exam and plan: Yes
--- NOTE | 2016-09-08 17:05 | CP.PCM.PN ---
Subjective - Date & Time of Evaluation Date of Evaluation: 09/08/16 Time of Evaluation: 07:20 - Subjective Subjective: clinically same Objective - Vital Signs/Intake and Output Vital Signs (last 24 hours): Temp Pulse Resp BP Pulse Ox 97.2 F L 64 20 113/60 100 09/08/16 15:39 09/08/16 15:39 09/08/16 15:39 09/08/16 15:39 09/08/16 15:39 Intake and Output: 09/08/16 09/08/16 06:59 18:59 Intake Total 400 100 Balance 400 100 - Medications Medications: Current Medications Acetaminophen (Tylenol 325mg Tab) 650 mg PO Q6 PRN PRN Reason: Pain, Mild (1-3) Apixaban (Eliquis) 2.5 mg PO BID [facility] Aspirin (Aspirin Chewable) 81 mg PO DAILY [facility] Last Admin: 09/08/16 09:11 Dose: 81 mg Calcium Carbonate (Tums) 500 mg PO BID [facility] Last Admin: 09/08/16 09:11 Dose: 500 mg Diphenhydramine HCl (Benadryl) 25 mg PO Q6 PRN PRN Reason: Extra Pyramidal Symptoms Divalproex Sodium (Depakote Sprinkles) 125 mg PO BID [facility] Last Admin: 09/08/16 09:11 Dose: 125 mg Ferrous Sulfate (Feosol) 325 mg PO TID [facility] Last Admin: 09/08/16 13:12 Dose: 325 mg Guaifenesin/Dextromethorphan (Robitussin Dm) 10 ml PO TID [facility] Last Admin: 09/08/16 13:12 Dose: 10 ml Haloperidol (Haldol) 2 mg PO Q6 PRN PRN Reason: Moderate Agitation Last Admin: 09/07/16 06:04 Dose: 2 mg Haloperidol Lactate (Haldol) 2 mg IM Q6 PRN PRN Reason: Agitation Last Admin: 09/06/16 06:07 Dose: 2 mg Levothyroxine Sodium (Synthroid) 37.5 mcg PO DAILY@0630 [facility] Last Admin: 09/08/16 07:06 Dose: 37.5 mcg Metformin [facility] ([facility]) [facility] Last Admin: 09/08/16 09:11 Dose: 1,000 mg Pantoprazole Sodium (Protonix Ec Tab) 40 mg PO DAILY [facility] Last Admin: 09/08/16 09:10 Dose: 40 mg Quetiapine Fumarate (Seroquel) 100 mg PO HS [facility] Last Admin: 09/07/16 21:14 Dose: 100 mg Quetiapine Fumarate (Seroquel) 50 mg PO DAILY [facility] Last Admin: 09/08/16 09:11 Dose: 50 mg Rosuvastatin Calcium (Crestor) 5 mg PO HS [facility] Last Admin: 09/07/16 21:16 Dose: 5 mg Fluticasone/Salmeterol (Advair Diskus 250/50) 1 puff INH RQ12 [facility] Last Admin: 09/08/16 07:22 Dose: Not Given Tamsulosin HCl (Flomax) 0.4 mg PO DAILY [facility] Last Admin: 09/08/16 09:11 Dose: 0.4 mg Tiotropium [place] (Spiriva) 18 mcg INH RQ24 [facility] - Labs Labs: 09/07/16 07:28 09/07/16 07:28 - Constitutional Appears: Well - Head Exam Head Exam: ATRAUMATIC, NORMAL INSPECTION, NORMOCEPHALIC - Eye Exam Eye Exam: EOMI, Normal appearance, PERRL Pupil Exam: NORMAL ACCOMODATION, PERRL - ENT Exam ENT Exam: Mucous Membranes Moist, Normal Exam - Neck Exam Neck Exam: Full ROM, Normal Inspection. absent: Lymphadenopathy - Respiratory Exam Respiratory Exam: Decreased Breath Sounds - Cardiovascular Exam Cardiovascular Exam: REGULAR RHYTHM, +S1, +S2 - GI/Abdominal Exam GI & Abdominal Exam: Soft, Diminished Bowel Sounds - Rectal Exam Rectal Exam: Deferred Assessment and Plan (1) Abnormal CXR (chest x-ray) Status: Acute (2) COPD (chronic obstructive pulmonary disease) Status: Acute (3) COPD exacerbation Status: Acute (4) Cardiac disease Status: Acute (5) Depression Status: Acute (6) Diabetes Status: Acute - Assessment and Plan (Free Text) Plan: onsult Ortho, help appreciated - Dr. Villareal / Tad Akbar Consult neurosurgery- help appreciated- Dr. Chavez Per neurosurgery, Dr. Acuña, patient does not need intervention for L2 fracture. No evidence of retropulsion to cord. Stable. Chronic. Ortho and Neurosurgery recommend bed rest and physical therapy. Physical therapy as tolerated. Continue Out of bed to chair. Imaging: CT confirms acute appearing L2 compression fracture, no retropulsion seen per report. Ill defined soft tissue density seen, ? edema. Would recommend attempt MRI (unsure if patient will tolerate and cooperate) for further visualization. Neurosurgery Consulted, Dr. Rose. Lumbar XRAY 08/11: - 1. Age indeterminate acute superior endplate compression fracture in the L2 vertebral body with 4 mm retrolisthesis. 2. Mild multilevel degenerative disc disease, worse at L5-S1. see full report. 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 Will continue current psych medications per Dr. Bajwa's recommendations Continue seroquel 50 mg po QD and seroquel 100 mg po HS and depakote sprinkles 125 mg po BID per psych recs Haldol 2mg IM Q6 PRN, agitation Haldol 2mg PO Q6H PRN, moderate agitation Patient off Remeron since 07/31/16. Remeron recommended by psych. However, patient's mood stable. Will add as needed.
[2016-09-09] MEDS: Levothyroxine 75 MCG TAB PO SCH (06:10)
[2016-09-09] MEDS: Fluticasone-Salmeterol 250-50mcg Diskus INH SCH ×2 (07:23→19:46)
[2016-09-09] MEDS: Tiotropium 18 mcg Cap For Inhalation INH SCH (07:23)
--- NOTE | 2016-09-09 10:17 | CP.PCM.PN ---
Subjective - Date & Time of Evaluation Date of Evaluation: 09/09/16 Time of Evaluation: 07:20 - Subjective Subjective: clinically same Objective - Vital Signs/Intake and Output Vital Signs (last 24 hours): Temp Pulse Resp BP Pulse Ox 98.5 F 72 20 132/64 97 09/09/16 09:00 09/09/16 09:00 09/09/16 09:00 09/09/16 09:00 09/09/16 09:00 Intake and Output: 09/09/16 09/09/16 06:59 18:59 Intake Total 810 Output Total 400 Balance 410 - Medications Medications: Current Medications Acetaminophen (Tylenol 325mg Tab) 650 mg PO Q6 PRN PRN Reason: Pain, Mild (1-3) Apixaban (Eliquis) 2.5 mg PO BID [facility] Last Admin: 09/08/16 18:07 Dose: 2.5 mg Aspirin (Aspirin Chewable) 81 mg PO DAILY [facility] Last Admin: 09/08/16 09:11 Dose: 81 mg Calcium Carbonate (Tums) 500 mg PO BID [facility] Last Admin: 09/08/16 18:07 Dose: 500 mg Diphenhydramine HCl (Benadryl) 25 mg PO Q6 PRN PRN Reason: Extra Pyramidal Symptoms Divalproex Sodium (Depakote Sprinkles) 125 mg PO BID [facility] Last Admin: 09/08/16 18:21 Dose: 125 mg Ferrous Sulfate (Feosol) 325 mg PO TID [facility] Last Admin: 09/08/16 18:07 Dose: 325 mg Guaifenesin/Dextromethorphan (Robitussin Dm) 10 ml PO TID [facility] Last Admin: 09/08/16 18:07 Dose: 10 ml Haloperidol (Haldol) 2 mg PO Q6 PRN PRN Reason: Moderate Agitation Last Admin: 09/09/16 06:11 Dose: 2 mg Haloperidol Lactate (Haldol) 2 mg IM Q6 PRN PRN Reason: Agitation Last Admin: 09/06/16 06:07 Dose: 2 mg Levothyroxine Sodium (Synthroid) 37.5 mcg PO DAILY@0630 [facility] Last Admin: 09/09/16 06:10 Dose: 37.5 mcg [facility] Last Admin: 09/08/16 18:07 Dose: 1,000 mg Pantoprazole Sodium (Protonix Ec Tab) 40 mg PO DAILY [facility] Last Admin: 09/08/16 09:10 Dose: 40 mg Quetiapine Fumarate (Seroquel) 100 mg PO HS [facility] Last Admin: 09/08/16 21:17 Dose: 100 mg Quetiapine Fumarate (Seroquel) 50 mg PO DAILY [facility] Last Admin: 09/08/16 09:11 Dose: 50 mg Rosuvastatin Calcium (Crestor) 5 mg PO HS [facility] Last Admin: 09/08/16 21:17 Dose: 5 mg Fluticasone/Salmeterol (Advair Diskus 250/50) 1 puff INH RQ12 [facility] Last Admin: 09/09/16 07:23 Dose: Not Given Tamsulosin HCl (Flomax) 0.4 mg PO DAILY [facility] Last Admin: 09/08/16 09:11 Dose: 0.4 mg Tiotropium [place] (Spiriva) 18 mcg INH RQ24 [facility] Last Admin: 09/09/16 07:23 Dose: Not Given - Labs Labs: 09/07/16 07:28 09/07/16 07:28 - Constitutional Appears: Well - Head Exam Head Exam: ATRAUMATIC, NORMAL INSPECTION, NORMOCEPHALIC - Eye Exam Eye Exam: EOMI, Normal appearance, PERRL Pupil Exam: NORMAL ACCOMODATION, PERRL - ENT Exam ENT Exam: Mucous Membranes Moist, Normal Exam - Neck Exam Neck Exam: Full ROM, Normal Inspection. absent: Lymphadenopathy - Respiratory Exam Respiratory Exam: Decreased Breath Sounds - Cardiovascular Exam Cardiovascular Exam: REGULAR RHYTHM, +S1, +S2 - GI/Abdominal Exam GI & Abdominal Exam: Soft, Diminished Bowel Sounds - Rectal Exam Rectal Exam: Deferred Assessment and Plan (1) Abnormal CXR (chest x-ray) Status: Acute (2) COPD (chronic obstructive pulmonary disease) Status: Acute (3) COPD exacerbation Status: Acute (4) Cardiac disease Status: Acute (5) Depression Status: Acute (6) Diabetes Status: Acute
[2016-09-09] MEDS: Divalproex 125 mg Sprinkle Capsule PO SCH ×2 (10:28→21:20)
[2016-09-09] MEDS: Pantoprazole 40 mg EC Tab PO SCH (10:28)
[2016-09-09] MEDS: guaiFENesin DM 200 mg-20 mg/10 ml UD PO SCH ×3 (10:28→17:53)
[2016-09-09] MEDS: Calcium Carbonate 500 mg Chewable Antacid Tab PO SCH ×2 (10:29→17:55)
--- NOTE | 2016-09-09 11:17 | CP.PCM.PN ---
<Sofia,Antonia - Last Filed: 09/09/16 15:07> Subjective - Date & Time of Evaluation Date of Evaluation: 09/09/16 Time of Evaluation: 11:07 - Subjective Subjective: PGY2 progress note for Dr. Solis Pt is seen and examined at bedside. Patient is in cira pleasant mood today. Patient denie shaving CP, SOB, abd pain, N/V/D/C, F/C. Patient is resting comfortably in chair. 12 point ROS are negative except for the above mentioned. Objective - Vital Signs/Intake and Output Vital Signs (last 24 hours): Temp Pulse Resp BP Pulse Ox 98.5 F 72 20 132/64 97 09/09/16 09:00 09/09/16 09:00 09/09/16 09:00 09/09/16 09:00 09/09/16 09:00 Intake and Output: 09/09/16 09/09/16 06:59 18:59 Intake Total 810 Output Total 400 Balance 410 - Medications Medications: Current Medications Acetaminophen (Tylenol 325mg Tab) 650 mg PO Q6 PRN PRN Reason: Pain, Mild (1-3) Apixaban (Eliquis) 2.5 mg PO BID [facility] Last Admin: 09/08/16 18:07 Dose: 2.5 mg Aspirin (Aspirin Chewable) 81 mg PO DAILY [facility] Last Admin: 09/09/16 10:27 Dose: 81 mg Calcium Carbonate (Tums) 500 mg PO BID [facility] Last Admin: 09/09/16 10:29 Dose: 500 mg Diphenhydramine HCl (Benadryl) 25 mg PO Q6 PRN PRN Reason: Extra Pyramidal Symptoms Divalproex Sodium (Depakote Sprinkles) 125 mg PO BID [facility] Last Admin: 09/09/16 10:28 Dose: 125 mg Ferrous Sulfate (Feosol) 325 mg PO TID [facility] Last Admin: 09/09/16 10:27 Dose: 325 mg Guaifenesin/Dextromethorphan (Robitussin Dm) 10 ml PO TID [facility] Last Admin: 09/09/16 10:28 Dose: 10 ml Haloperidol (Haldol) 2 mg PO Q6 PRN PRN Reason: Moderate Agitation Last Admin: 09/09/16 06:11 Dose: 2 mg Haloperidol Lactate (Haldol) 2 mg IM Q6 PRN PRN Reason: Agitation Last Admin: 09/06/16 06:07 Dose: 2 mg Levothyroxine Sodium (Synthroid) 37.5 mcg PO DAILY@0630 [facility] Last Admin: 09/09/16 06:10 Dose: 37.5 mcg Metformin HCl (Glucophage) 1,000 mg PO BIDCC [facility] Last Admin: 09/09/16 10:27 Dose: 1,000 mg Pantoprazole Sodium (Protonix Ec Tab) 40 mg PO DAILY [facility] Last Admin: 09/09/16 10:28 Dose: 40 mg Quetiapine Fumarate (Seroquel) 100 mg PO HS [facility] Last Admin: 09/08/16 21:17 Dose: 100 mg Quetiapine Fumarate (Seroquel) 50 mg PO DAILY [facility] Last Admin: 09/09/16 10:28 Dose: 50 mg Rosuvastatin Calcium (Crestor) 5 mg PO HS [facility] Last Admin: 09/08/16 21:17 Dose: 5 mg Fluticasone/Salmeterol (Advair Diskus 250/50) 1 puff INH RQ12 [facility] Last Admin: 09/09/16 07:23 Dose: Not Given Tamsulosin HCl (Flomax) 0.4 mg PO DAILY [facility] Last Admin: 09/09/16 10:28 Dose: 0.4 mg Tiotropium [place] (Spiriva) 18 mcg INH RQ24 [facility] Last Admin: 09/09/16 07:23 Dose: Not Given - Labs Labs: 09/07/16 07:28 09/07/16 07:28 - Constitutional Appears: Non-toxic, No Acute Distress - Head Exam Head Exam: ATRAUMATIC - Eye Exam Eye Exam: EOMI - ENT Exam ENT Exam: Mucous Membranes Moist - Respiratory Exam Respiratory Exam: Clear to Ausculation Bilateral. absent: Accessory Muscle Use , Rales, Rhonchi, Wheezes, Respiratory Distress - Cardiovascular Exam Cardiovascular Exam: REGULAR RHYTHM, +S1, +S2. absent: Gallop, Rubs, Murmur - GI/Abdominal Exam GI & Abdominal Exam: Soft, Normal Bowel Sounds. absent: Distended, Firm, Guarding, Rigid, Tenderness, Organomegaly - Extremities Exam Extremities Exam: absent: Pedal Edema, Tenderness - Neurological Exam Neurological Exam: Alert, Awake, Oriented x3 - Psychiatric Exam Psychiatric exam: Normal Affect, Normal Mood - Skin Skin Exam: Dry, Intact, Normal Color, Warm Assessment and Plan - Assessment and Plan (Free Text) Assessment: 1) L2 Compression Fracture Stable. Continue physical therapy as tolerated Consult Ortho, help appreciated - Dr. Villareal / Tad Akbar Consult neurosurgery- help appreciated- Dr. Chavez Per neurosurgery, Dr. Acuña, patient does not need intervention for L2 fracture. No evidence of retropulsion to cord. Stable. Chronic. Ortho and Neurosurgery recommend bed rest and physical therapy. Physical therapy as tolerated. Continue Out of bed to chair. Imaging: CT confirms acute appearing L2 compression fracture, no retropulsion seen per report. Ill defined soft tissue density seen, ? edema. Would recommend attempt MRI (unsure if patient will tolerate and cooperate) for further visualization. * Neurosurgery Consulted, Dr. Rose. Lumbar XRAY 08/11: - 1. Age indeterminate acute superior endplate compression fracture in the L2 vertebral body with 4 mm retrolisthesis. 2. Mild multilevel degenerative disc disease, worse at L5-S1. see full report. 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 Will continue current psych medications per Dr. Bajwa's recommendations Continue seroquel 50 mg po QD and seroquel 100 mg po HS and depakote sprinkles 125 mg po BID per psych recs Haldol 2mg IM Q6 PRN, agitation Haldol 2mg PO Q6H PRN, moderate agitation Patient off Remeron since 07/31/16. Remeron recommended by psych. However, patient's mood stable. Will add as needed. Will discuss with Dr. Bajwa about how often the behavioral disturbances are occurring in order for further placement into retirement 3) Depression No SI/HI. Monitor Psych Dr. Bajwa consulted, help appreciated. Management as above 4) Chest Pain Resolved. As per Dr. Marinelli, likely secondary to [employer] as per consult 07/23/16. ROMIs negative EKG with LBBB as prior EKGs have also shown Cardio consult - Dr. Marinelli - help appreciated ECHO - left ventricular is normal size. there is mild to moderate concentric left ventricular hypertrophy. the systolic function is midly to moderately impaired. septal hypokinesis. mild to moderate aortic regurgitation. mild pulmonary hypertension. (please see full report) 5) Nodular opacity in chest Pulm consult - Dr. Hayden - help appreciated Chest CT - extensive bilateral fine nodular interstitial infiltrate both lower lobes. dense pleural based consolidation right lower lobe. subpleural emphysema. mild centrilobular pulmonary emphysema. left upper lobe nodules. 7mm and 9mm. reccomend f/u noncontrast chest CT in 3 months. Multiple left upper lobe nodular calcifications, likely granulomatous. probable small airways disease posterior right upper lobe. findings are nonspecific and may reflect infection or inflammatory disease. Patient needs to f/u outpatient per Dr. Hayden for nodular opacity in chest + COPD. 6) COPD Pulm consult - Dr. Hayden - help appreciated Advair and Spiriva 7) DM RISS, accuchecks. Lantus 10U SC HS, Metformin 8) Hypothyroid Continue synthroid 37.5 mcg po qd. 9) Hx of cardiac disease Continue Eliquis, ASA, Crestor. 10) Prophylactic measure Protonix 40 mg PO daily Eliquis 2.5 mg Po BID Social work referral. -Labs ordered MWF. -PT rec -> [facility] Disposition Case management is consulted: Pending rehab placement. Patient must not have any behavioral disturbances for 1 week and be cleared by psych for placement to rehab. All Medical Management per Dr. Solis <Perla Solis S - Last Filed: 09/09/16 22:49> Objective - Vital Signs/Intake and Output Vital Signs (last 24 hours): Temp Pulse Resp BP Pulse Ox 97.5 F L 72 20 114/58 L 99 09/09/16 15:52 09/09/16 15:52 09/09/16 15:52 09/09/16 15:52 09/09/16 15:52 Intake and Output: 09/09/16 09/10/16 18:59 06:59 Intake Total 360 400 Balance 360 400 - Medications Medications: Current Medications Acetaminophen (Tylenol 325mg Tab) 650 mg PO Q6 PRN PRN Reason: Pain, Mild (1-3) Apixaban (Eliquis) 2.5 mg PO BID [facility] Last Admin: 09/09/16 17:52 Dose: 2.5 mg Aspirin (Aspirin Chewable) 81 mg PO DAILY [facility] Last Admin: 09/09/16 10:27 Dose: 81 mg Calcium Carbonate (Tums) 500 mg PO BID [facility] Last Admin: 09/09/16 17:55 Dose: 500 mg Diphenhydramine HCl (Benadryl) 25 mg PO Q6 PRN PRN Reason: Extra Pyramidal Symptoms Divalproex Sodium (Depakote Sprinkles) 125 mg PO BID [facility] Last Admin: 09/09/16 21:20 Dose: 125 mg Ferrous Sulfate (Feosol) 325 mg PO TID [facility] Last Admin: 09/09/16 17:52 Dose: 325 mg Guaifenesin/Dextromethorphan (Robitussin Dm) 10 ml PO TID [facility] Last Admin: 09/09/16 17:53 Dose: 10 ml Haloperidol (Haldol) 2 mg PO Q6 PRN PRN Reason: Moderate Agitation Last Admin: 09/09/16 06:11 Dose: 2 mg Haloperidol Lactate (Haldol) 2 mg IM Q6 PRN PRN Reason: Agitation Last Admin: 09/06/16 06:07 Dose: 2 mg Levothyroxine Sodium (Synthroid) 37.5 mcg PO DAILY@0630 [facility] Last Admin: 09/09/16 06:10 Dose: 37.5 mcg [facility] ([facility] Admin: 09/09/16 17:52 Dose: 1,000 mg Pantoprazole Sodium (Protonix Ec Tab) 40 mg PO DAILY [facility] Last Admin: 09/09/16 10:28 Dose: 40 mg Quetiapine Fumarate (Seroquel) 100 mg PO [facility] Last Admin: 09/09/16 21:20 Dose: 100 mg Quetiapine Fumarate (Seroquel) 50 mg PO DAILY [facility] Last Admin: 09/09/16 10:28 Dose: 50 mg Rosuvastatin Calcium (Crestor) 5 mg PO [facility] Last Admin: 09/09/16 21:19 Dose: 5 mg Fluticasone/Salmeterol (Advair Diskus 250/50) 1 puff INH RQ12 [facility] Last Admin: 09/09/16 19:46 Dose: Not Given Tamsulosin HCl (Flomax) 0.4 mg PO DAILY [facility] Last Admin: 09/09/16 10:28 Dose: 0.4 mg Tiotropium [place] (Spiriva) 18 mcg INH RQ24 [facility] Last Admin: 09/09/16 07:23 Dose: Not Given - Labs Labs: 09/07/16 07:28 09/07/16 07:28 Assessment and Plan (1) Abnormal CXR (chest x-ray) Status: Acute (2) COPD (chronic obstructive pulmonary disease) Status: Acute (3) COPD exacerbation Status: Acute (4) Cardiac disease Status: Acute (5) Depression Status: Acute (6) Diabetes Status: Acute Attending/Attestation - Attestation I have personally seen and examined this patient.: Yes I have fully participated in the care of the patient.: Yes I have reviewed all pertinent clinical information, including history, physical exam and plan: Yes Notes (Text): 09/09/16 22:48 The case seen and discussed with the staff and resident of awaiting placement continue same
[2016-09-10] MEDS: Levothyroxine 75 MCG TAB PO SCH (05:54)
[2016-09-10] MEDS: Tiotropium 18 mcg Cap For Inhalation INH SCH (07:27)
[2016-09-10] MEDS: Fluticasone-Salmeterol 250-50mcg Diskus INH SCH ×2 (07:27→19:00)
[2016-09-10] MEDS: Pantoprazole 40 mg EC Tab PO SCH (09:21)
[2016-09-10] MEDS: guaiFENesin DM 200 mg-20 mg/10 ml UD PO SCH ×3 (09:21→17:49)
[2016-09-10] MEDS: Divalproex 125 mg Sprinkle Capsule PO SCH ×2 (09:22→17:50)
[2016-09-10] MEDS: Calcium Carbonate 500 mg Chewable Antacid Tab PO SCH ×2 (09:23→18:06)
--- NOTE | 2016-09-10 10:57 | CP.PCM.PN ---
Subjective - Date & Time of Evaluation Date of Evaluation: 09/10/16 Time of Evaluation: 09:20 - Subjective Subjective: PGY3 progress note for Dr. Solis Pt seen and examined at bedside this AM. Patient is in very pleasant mood today. Patient denies having CP, SOB, abd pain, N/V/D/C, F/C. Patient reports back pain today which has been intermittent for one year. Patient is resting comfortably in bed taking his medications from nurse. 12 point ROS are negative except for the above mentioned. Objective - Vital Signs/Intake and Output Vital Signs (last 24 hours): Temp Pulse Resp BP Pulse Ox 97.6 F 75 20 105/57 L 97 09/09/16 23:17 09/09/16 23:17 09/09/16 23:17 09/09/16 23:17 09/09/16 23:17 Intake and Output: 09/10/16 09/10/16 06:59 18:59 Intake Total 550 Balance 550 - Medications Medications: Current Medications Acetaminophen (Tylenol 325mg Tab) 650 mg PO Q6 PRN PRN Reason: Pain, Mild (1-3) Apixaban (Eliquis) 2.5 mg PO BID [facility] Last Admin: 09/10/16 09:22 Dose: 2.5 mg Aspirin (Aspirin Chewable) 81 mg PO DAILY [facility] Last Admin: 09/10/16 09:21 Dose: 81 mg Calcium Carbonate (Tums) 500 mg PO BID [facility] Last Admin: 09/10/16 09:23 Dose: 500 mg Diphenhydramine HCl (Benadryl) 25 mg PO Q6 PRN PRN Reason: Extra Pyramidal Symptoms Divalproex Sodium (Depakote Sprinkles) 125 mg PO BID [facility] Last Admin: 09/10/16 09:22 Dose: 125 mg Ferrous Sulfate (Feosol) 325 mg PO TID [facility] Last Admin: 09/10/16 09:21 Dose: 325 mg Guaifenesin/Dextromethorphan (Robitussin Dm) 10 ml PO TID [facility] Last Admin: 09/10/16 09:21 Dose: 10 ml Haloperidol (Haldol) 2 mg PO Q6 PRN PRN Reason: Moderate Agitation Last Admin: 09/10/16 09:22 Dose: 2 mg Haloperidol Lactate (Haldol) 2 mg IM Q6 PRN PRN Reason: Agitation Last Admin: 09/06/16 06:07 Dose: 2 mg Insulin Glargine (Lantus) 6 unit SC [facility] Levothyroxine Sodium (Synthroid) 37.5 mcg PO DAILY@0630 [facility] Last Admin: 09/10/16 05:54 Dose: 37.5 mcg Metformin HCl (Glucophage) 1,000 mg PO BIDCC [facility] Last Admin: 09/10/16 07:54 Dose: 1,000 mg Pantoprazole Sodium (Protonix Ec Tab) 40 mg PO DAILY [facility] Last Admin: 09/10/16 09:21 Dose: 40 mg Quetiapine Fumarate (Seroquel) 100 mg PO HS [facility] Last Admin: 09/09/16 21:20 Dose: 100 mg Quetiapine Fumarate (Seroquel) 50 mg PO DAILY [facility] Last Admin: 09/10/16 09:22 Dose: 50 mg Rosuvastatin Calcium (Crestor) 5 mg PO [facility] Last Admin: 09/09/16 21:19 Dose: 5 mg Fluticasone/Salmeterol (Advair Diskus 250/50) 1 puff INH RQ12 [facility] Last Admin: 09/10/16 07:27 Dose: Not Given Tamsulosin HCl (Flomax) 0.4 mg PO DAILY [facility] Last Admin: 09/10/16 09:21 Dose: 0.4 mg Tiotropium [place] (Spiriva) 18 mcg INH RQ24 [facility] Last Admin: 09/10/16 07:27 Dose: Not Given - Labs Labs: 09/07/16 07:28 09/07/16 07:28 - Constitutional Appears: Non-toxic, No Acute Distress - Head Exam Head Exam: NORMAL INSPECTION - Eye Exam Eye Exam: EOMI - ENT Exam ENT Exam: Mucous Membranes Moist - Respiratory Exam Respiratory Exam: Clear to Ausculation Bilateral, NORMAL BREATHING PATTERN. absent: Rales, Rhonchi, Wheezes - Cardiovascular Exam Cardiovascular Exam: REGULAR RHYTHM, +S1, +S2. absent: Gallop, Rubs, Murmur - GI/Abdominal Exam GI & Abdominal Exam: Soft, Normal Bowel Sounds. absent: Distended, Firm, Tenderness - Extremities Exam Extremities Exam: absent: Pedal Edema - Neurological Exam Neurological Exam: Alert, Awake, Oriented x3 - Psychiatric Exam Psychiatric exam: Normal Affect, Normal Mood - Skin Skin Exam: Normal Color, Warm Assessment and Plan - Assessment and Plan (Free Text) Assessment: 1) L2 Compression Fracture Stable. Continue physical therapy as tolerated Consult Ortho, help appreciated - Dr. Villareal / Tad Akbar Consult neurosurgery- help appreciated- Dr. Chavez Per neurosurgery, Dr. Acuña, patient does not need intervention for L2 fracture. No evidence of retropulsion to cord. Stable. Chronic. Ortho and Neurosurgery recommend bed rest and physical therapy. Physical therapy as tolerated. Continue Out of bed to chair. Imaging: CT confirms acute appearing L2 compression fracture, no retropulsion seen per report. Ill defined soft tissue density seen, ? edema. Would recommend attempt MRI (unsure if patient will tolerate and cooperate) for further visualization. * Neurosurgery Consulted, Dr. Rose. Lumbar XRAY 08/11: - 1. Age indeterminate acute superior endplate compression fracture in the L2 vertebral body with 4 mm retrolisthesis. 2. Mild multilevel degenerative disc disease, worse at L5-S1. see full report. 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 Will continue current psych medications per Dr. Bajwa's recommendations Continue seroquel 50 mg po QD and seroquel 100 mg po HS and depakote sprinkles 125 mg po BID per psych recs Haldol 2mg IM Q6 PRN, agitation Haldol 2mg PO Q6H PRN, moderate agitation Patient off Remeron since 07/31/16. Remeron recommended by psych. However, patient's mood stable. Will add as needed. Will discuss with Dr. Bajwa about how often the behavioral disturbances are occurring in order for further placement into group home 3) Depression No SI/HI. Monitor Psych Dr. Bajwa consulted, help appreciated. Management as above 4) Chest Pain Resolved. As per Dr. 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 ROMIs negative EKG with LBBB as prior EKGs have also shown Cardio consult - Dr. Marinelli - help appreciated ECHO - left ventricular is normal size. there is mild to moderate concentric left ventricular hypertrophy. the systolic function is midly to moderately impaired. septal hypokinesis. mild to moderate aortic regurgitation. mild pulmonary hypertension. (please see full report) 5) Nodular opacity in chest Pulm consult - Dr. Hayden - help appreciated Chest CT - extensive bilateral fine nodular interstitial infiltrate both lower lobes. dense pleural based consolidation right lower lobe. subpleural emphysema. mild centrilobular pulmonary emphysema. left upper lobe nodules. 7mm and 9mm. reccomend f/u noncontrast chest CT in 3 months. Multiple left upper lobe nodular calcifications, likely granulomatous. probable small airways disease posterior right upper lobe. findings are nonspecific and may reflect infection or inflammatory disease. Patient needs to f/u outpatient per Dr. Hayden for nodular opacity in chest + COPD. 6) COPD Pulm consult - Dr. Hayden - help appreciated Advair and Spiriva 7) DM RISS, accuchecks. Lantus 10U SC HS, Metformin 8) Hypothyroid Continue synthroid 37.5 mcg po qd. 9) Hx of cardiac disease Continue Eliquis, ASA, Crestor. 10) Prophylactic measure Protonix 40 mg PO daily Eliquis 2.5 mg Po BID Social work referral. -Labs ordered MWF. -PT rec -> [facility]NEY Disposition Case management is consulted: Pending rehab placement. Patient must not have any behavioral disturbances for 1 week and be cleared by psych for placement to rehab. All Medical Management per Dr. Solis
--- NOTE | 2016-09-10 12:52 | CP.PCM.PN ---
Subjective - Date & Time of Evaluation Date of Evaluation: 09/10/16 Time of Evaluation: 07:20 - Subjective Subjective: clinically same Objective - Vital Signs/Intake and Output Vital Signs (last 24 hours): Temp Pulse Resp BP Pulse Ox 97.6 F 75 20 105/57 L 97 09/09/16 23:17 09/09/16 23:17 09/09/16 23:17 09/09/16 23:17 09/09/16 23:17 Intake and Output: 09/10/16 09/10/16 06:59 18:59 Intake Total 550 Balance 550 - Medications Medications: Current Medications Acetaminophen (Tylenol 325mg Tab) 650 mg PO Q6 PRN PRN Reason: Pain, Mild (1-3) Apixaban (Eliquis) 2.5 mg PO BID [facility] Last Admin: 09/10/16 09:22 Dose: 2.5 mg Aspirin (Aspirin Chewable) 81 mg PO DAILY [facility] Last Admin: 09/10/16 09:21 Dose: 81 mg Calcium Carbonate (Tums) 500 mg PO BID [facility] Last Admin: 09/10/16 09:23 Dose: 500 mg Diphenhydramine HCl (Benadryl) 25 mg PO Q6 PRN PRN Reason: Extra Pyramidal Symptoms Divalproex Sodium (Depakote Sprinkles) 125 mg PO BID [facility] Last Admin: 09/10/16 09:22 Dose: 125 mg Ferrous Sulfate (Feosol) 325 mg PO TID [facility] Last Admin: 09/10/16 09:21 Dose: 325 mg Guaifenesin/Dextromethorphan (Robitussin Dm) 10 ml PO TID [facility] Last Admin: 09/10/16 09:21 Dose: 10 ml Haloperidol (Haldol) 2 mg PO Q6 PRN PRN Reason: Moderate Agitation Last Admin: 09/10/16 09:22 Dose: 2 mg Haloperidol Lactate (Haldol) 2 mg IM Q6 PRN PRN Reason: Agitation Last Admin: 09/06/16 06:07 Dose: 2 mg Insulin Glargine (Lantus) 6 unit SC [facility] Levothyroxine Sodium (Synthroid) 37.5 mcg PO DAILY@0630 [facility] Last Admin: 09/10/16 05:54 Dose: 37.5 mcg [facility] Admin: 09/10/16 07:54 Dose: 1,000 mg Pantoprazole Sodium (Protonix Ec Tab) 40 mg PO DAILY [facility] Last Admin: 09/10/16 09:21 Dose: 40 mg Quetiapine Fumarate (Seroquel) 100 mg PO HS [facility] Last Admin: 09/09/16 21:20 Dose: 100 mg Quetiapine Fumarate (Seroquel) 50 mg PO DAILY [facility] Last Admin: 09/10/16 09:22 Dose: 50 mg Rosuvastatin Calcium (Crestor) 5 mg PO HS [facility] Last Admin: 09/09/16 21:19 Dose: 5 mg Fluticasone/Salmeterol (Advair Diskus 250/50) 1 puff INH RQ12 [facility] Last Admin: 09/10/16 07:27 Dose: Not Given Tamsulosin HCl (Flomax) 0.4 mg PO DAILY [facility] Last Admin: 09/10/16 09:21 Dose: 0.4 mg Tiotropium [place] (Spiriva) 18 mcg INH RQ24 [facility] Last Admin: 09/10/16 07:27 Dose: Not Given - Labs Labs: 09/07/16 07:28 09/07/16 07:28 - Constitutional Appears: Well - Head Exam Head Exam: ATRAUMATIC, NORMAL INSPECTION, NORMOCEPHALIC - Eye Exam Eye Exam: EOMI, Normal appearance, PERRL Pupil Exam: NORMAL ACCOMODATION, PERRL - ENT Exam ENT Exam: Mucous Membranes Moist, Normal Exam - Neck Exam Neck Exam: Full ROM, Normal Inspection. absent: Lymphadenopathy - Respiratory Exam Respiratory Exam: Decreased Breath Sounds - Cardiovascular Exam Cardiovascular Exam: REGULAR RHYTHM, +S1, +S2 - GI/Abdominal Exam GI & Abdominal Exam: Soft, Diminished Bowel Sounds - Rectal Exam Rectal Exam: Deferred Assessment and Plan (1) Abnormal CXR (chest x-ray) Status: Acute (2) COPD (chronic obstructive pulmonary disease) Status: Acute (3) COPD exacerbation Status: Acute (4) Cardiac disease Status: Acute (5) Depression Status: Acute (6) Diabetes Status: Acute - Assessment and Plan (Free Text) Plan: Patient seen and examined at bedside Patient comfortable No acute event Tolerating diet Pain meds Continue aspirin Continue Haldol Accu-Cheks Metformin Physical therapy Seroquel Statins
[2016-09-10] MEDS: (Lantus) Insulin Glargine, Recombinant SC SCH (21:23)
[2016-09-10] MEDS ORDERED: (Lantus) Insulin Glargine, Recombinant SC SCH (22:00)
[2016-09-11] MEDS: Levothyroxine 75 MCG TAB PO SCH (05:38)
[2016-09-11] MEDS: Fluticasone-Salmeterol 250-50mcg Diskus INH SCH ×2 (08:14→19:41)
[2016-09-11] MEDS: Tiotropium 18 mcg Cap For Inhalation INH SCH (08:15)
[2016-09-11] MEDS: Pantoprazole 40 mg EC Tab PO SCH (09:53)
[2016-09-11] MEDS: guaiFENesin DM 200 mg-20 mg/10 ml UD PO SCH ×3 (09:54→17:39)
[2016-09-11] MEDS: Divalproex 125 mg Sprinkle Capsule PO SCH ×2 (09:54→17:43)
[2016-09-11] MEDS: Calcium Carbonate 500 mg Chewable Antacid Tab PO SCH ×2 (09:55→17:40)
--- NOTE | 2016-09-11 10:13 | CP.PCM.PN ---
Subjective - Date & Time of Evaluation Date of Evaluation: 09/11/16 Time of Evaluation: 10:09 - Subjective Subjective: PGY2 Progress note for Dr. Solis Pt is seen and examined at bedside. Patient is in process of eating breakfast with assistance. Patient denies having any CP, SOB, abd pain, N/v/D/C. Patient is cooperative while eating breakfast. 12 point ROS are negative except for the above mentioned. Objective - Vital Signs/Intake and Output Vital Signs (last 24 hours): Temp Pulse Resp BP Pulse Ox 97.7 F 63 20 101/61 97 09/11/16 07:47 09/11/16 07:47 09/11/16 07:47 09/11/16 07:47 09/11/16 07:47 Intake and Output: 09/11/16 09/11/16 06:59 18:59 Intake Total 600 Balance 600 - Medications Medications: Current Medications Acetaminophen (Tylenol 325mg Tab) 650 mg PO Q6 PRN PRN Reason: Pain, Mild (1-3) Last Admin: 09/10/16 14:22 Dose: 650 mg Apixaban (Eliquis) 2.5 mg PO BID [facility] Last Admin: 09/11/16 09:54 Dose: 2.5 mg Aspirin (Aspirin Chewable) 81 mg PO DAILY [facility] Last Admin: 09/11/16 09:53 Dose: 81 mg Calcium Carbonate (Tums) 500 mg PO BID [facility] Last Admin: 09/11/16 09:55 Dose: 500 mg Diphenhydramine HCl (Benadryl) 25 mg PO Q6 PRN PRN Reason: Extra Pyramidal Symptoms Divalproex Sodium (Depakote Sprinkles) 125 mg PO BID [facility] Last Admin: 09/11/16 09:54 Dose: 125 mg Ferrous Sulfate (Feosol) 325 mg PO TID [facility] Last Admin: 09/11/16 09:53 Dose: 325 mg Guaifenesin/Dextromethorphan (Robitussin Dm) 10 ml PO TID [facility] Last Admin: 09/11/16 09:54 Dose: 10 ml Haloperidol (Haldol) 2 mg PO Q6 PRN PRN Reason: Moderate Agitation Last Admin: 09/11/16 05:39 Dose: 2 mg Haloperidol Lactate (Haldol) 2 mg IM Q6 PRN PRN Reason: Agitation Last Admin: 09/06/16 06:07 Dose: 2 mg Insulin Glargine (Lantus) 6 unit SC [facility] Last Admin: 09/10/16 21:23 Dose: 6 units Levothyroxine Sodium (Synthroid) 37.5 mcg PO DAILY@0630 [facility] Last Admin: 09/11/16 05:38 Dose: 37.5 mcg Metformin HCl (Glucophage) 1,000 mg PO BIDCC [facility] Last Admin: 09/11/16 07:53 Dose: 1,000 mg Pantoprazole Sodium (Protonix Ec Tab) 40 mg PO DAILY [facility] Last Admin: 09/11/16 09:53 Dose: 40 mg Quetiapine Fumarate (Seroquel) 100 mg PO HS [facility] Last Admin: 09/10/16 21:18 Dose: 100 mg Quetiapine Fumarate (Seroquel) 50 mg PO DAILY [facility] Last Admin: 09/11/16 09:55 Dose: 50 mg Rosuvastatin Calcium (Crestor) 5 mg PO [facility] Last Admin: 09/10/16 21:18 Dose: 5 mg Fluticasone/Salmeterol (Advair Diskus 250/50) 1 puff INH RQ12 [facility] Last Admin: 09/11/16 08:14 Dose: Not Given Tamsulosin HCl (Flomax) 0.4 mg PO DAILY [facility] Last Admin: 09/11/16 09:53 Dose: 0.4 mg Tiotropium [place] (Spiriva) 18 mcg INH RQ24 [facility] Last Admin: 09/11/16 08:15 Dose: 18 mcg - Labs Labs: 09/07/16 07:28 09/07/16 07:28 - Constitutional Appears: Non-toxic, No Acute Distress - Head Exam Head Exam: ATRAUMATIC - ENT Exam ENT Exam: Mucous Membranes Moist - Respiratory Exam Respiratory Exam: Clear to Ausculation Bilateral. absent: Accessory Muscle Use , Rales, Rhonchi, Wheezes, Respiratory Distress - Cardiovascular Exam Cardiovascular Exam: REGULAR RHYTHM, +S1, +S2. absent: Gallop, Rubs, Murmur - Extremities Exam Extremities Exam: absent: Pedal Edema, Tenderness - Neurological Exam Neurological Exam: Alert, Awake, Oriented x3 - Psychiatric Exam Psychiatric exam: Normal Affect, Normal Mood - Skin Skin Exam: Dry, Intact, Normal Color, Warm Assessment and Plan - Assessment and Plan (Free Text) Assessment: 1) L2 Compression Fracture Continue physical therapy as tolerated. Will continue out of bed to chair as tolerated Consult Ortho, help appreciated - Dr. Villareal / Tad Akbar Consult neurosurgery- help appreciated- Dr. Chavez Per neurosurgery, Dr. Acuña, patient does not need intervention for L2 fracture. No evidence of retropulsion to cord. Stable. Chronic. Ortho and Neurosurgery recommend bed rest and physical therapy. Physical therapy as tolerated. Continue Out of bed to chair. Imaging: CT confirms acute appearing L2 compression fracture, no retropulsion seen per report. Ill defined soft tissue density seen, ? edema. Would recommend attempt MRI (unsure if patient will tolerate and cooperate) for further visualization. * Neurosurgery Consulted, Dr. Rose. Lumbar XRAY 08/11: - 1. Age indeterminate acute superior endplate compression fracture in the L2 vertebral body with 4 mm retrolisthesis. 2. Mild multilevel degenerative disc disease, worse at L5-S1. see full report. 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 Will continue current psych medications per Dr. Bajwa's recommendations. No recent reported incidences of behavioral disturbances Continue seroquel 50 mg po QD and seroquel 100 mg po HS and depakote sprinkles 125 mg po BID per psych recs Haldol 2mg IM Q6 PRN, agitation Haldol 2mg PO Q6H PRN, moderate agitation Patient off Remeron since 07/31/16. Remeron recommended by psych. However, patient's mood stable. Will add as needed. Will discuss with Dr. Bajwa about how often the behavioral disturbances are occurring in order for further placement into long-term 3) Depression No SI/HI. Monitor Psych Dr. Bajwa consulted, help appreciated. Management as above 4) Chest Pain Resolved. As per Dr. 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 ROMIs negative EKG with LBBB as prior EKGs have also shown Cardio consult - Dr. Marinelli - help appreciated ECHO - left ventricular is normal size. there is mild to moderate concentric left ventricular hypertrophy. the systolic function is midly to moderately impaired. septal hypokinesis. mild to moderate aortic regurgitation. mild pulmonary hypertension. (please see full report) 5) Nodular opacity in chest Pulm consult - Dr. Hayden - help appreciated Chest CT - extensive bilateral fine nodular interstitial infiltrate both lower lobes. dense pleural based consolidation right lower lobe. subpleural emphysema. mild centrilobular pulmonary emphysema. left upper lobe nodules. 7mm and 9mm. reccomend f/u noncontrast chest CT in 3 months. Multiple left upper lobe nodular calcifications, likely granulomatous. probable small airways disease posterior right upper lobe. findings are nonspecific and may reflect infection or inflammatory disease. Patient needs to f/u outpatient per Dr. Hayden for nodular opacity in chest + COPD. 6) COPD Pulm consult - Dr. Hayden - help appreciated Advair and Spiriva 7) DM RISS, accuchecks. Lantus 10U SC HS, Metformin 8) Hypothyroid Continue synthroid 37.5 mcg po qd. 9) Hx of cardiac disease Continue Eliquis, ASA, Crestor. 10) Prophylactic measure Protonix 40 mg PO daily Eliquis 2.5 mg Po BID Social work referral. -Labs ordered MWF. -PT rec -> [facility]APHNEY Disposition Case management is consulted: Pending rehab placement. Patient must not have any behavioral disturbances for 1 week and be cleared by psych for placement to rehab. All Medical Management per Dr. Solis
[2016-09-11 11:43] LABS: BASO % 0.5 % (0.0-2.0); EOS # 0.1 K/uL (0.0-0.7); EOS % 1.6 % (0.0-4.0); HEMATOCRIT 35.4 % (35.0-51.0); LYMPH # 2.8 K/uL (1.0-4.3); LYMPH % 36.3 % (20.0-40.0); MEAN CELL VOLUME 85.6 fL (80.0-94.0); MEAN CORPUSCULAR HEMOGLOBIN 27.8 pg (27.0-31.0); MEAN CORPUSCULAR HGB CONC 32.4 g/dL (33.0-37.0); MEAN PLATELET VOLUME 8.6 fL (7.2-11.7); MONO # 0.8 K/uL (0.0-0.8); MONO % 10.9 % (0.0-10.0); RED CELL DISTRIBUTION WIDTH 16.9 % (11.5-14.5); WHITE BLOOD COUNT 7.6 K/uL (4.8-10.8)
[2016-09-11 12:05] LABS: CHLORIDE 100 mmol/L (98-107)
[2016-09-11 12:06] LABS: POTASSIUM 4.1 mmol/L (3.6-5.2); SODIUM 139 mmol/L (132-148)
[2016-09-11 12:08] LABS: ALB/GLOB RATIO 1.1 (1.0-2.1); ALKALINE PHOSPHATASE 41 U/L (38-126); ALT/SGPT 18 U/L (21-72); AST/SGOT 14 U/L (17-59); BILIRUBIN,TOTAL 0.5 mg/dL (0.2-1.3); BLOOD UREA NITROGEN 26 mg/dL (9-20); CARBON DIOXIDE 26 mmol/L (22-30); GFR AFRICAN-AMERICAN > 60; TOTAL PROTEIN 5.9 g/dL (6.3-8.3)
[2016-09-11 12:09] LABS: CALCIUM 8.8 mg/dl (8.6-10.4); GLUCOSE,RANDOM 68 mg/dL (75-110)
--- NOTE | 2016-09-11 15:16 | CP.PCM.PN ---
Subjective - Date & Time of Evaluation Date of Evaluation: 09/11/16 Time of Evaluation: 07:20 - Subjective Subjective: clinically same Objective - Vital Signs/Intake and Output Vital Signs (last 24 hours): Temp Pulse Resp BP Pulse Ox 97.7 F 63 20 101/61 97 09/11/16 07:47 09/11/16 07:47 09/11/16 07:47 09/11/16 07:47 09/11/16 07:47 Intake and Output: 09/11/16 09/11/16 06:59 18:59 Intake Total 600 Balance 600 - Medications Medications: Current Medications Acetaminophen (Tylenol 325mg Tab) 650 mg PO Q6 PRN PRN Reason: Pain, Mild (1-3) Last Admin: 09/10/16 14:22 Dose: 650 mg Apixaban (Eliquis) 2.5 mg PO BID [facility] Last Admin: 09/11/16 09:54 Dose: 2.5 mg Aspirin (Aspirin Chewable) 81 mg PO DAILY [facility] Last Admin: 09/11/16 09:53 Dose: 81 mg Calcium Carbonate (Tums) 500 mg PO BID [facility] Last Admin: 09/11/16 09:55 Dose: 500 mg Diphenhydramine HCl (Benadryl) 25 mg PO Q6 PRN PRN Reason: Extra Pyramidal Symptoms Divalproex Sodium (Depakote Sprinkles) 125 mg PO BID [facility] Last Admin: 09/11/16 09:54 Dose: 125 mg Ferrous Sulfate (Feosol) 325 mg PO TID [facility] Last Admin: 09/11/16 13:20 Dose: 325 mg Guaifenesin/Dextromethorphan (Robitussin Dm) 10 ml PO TID [facility] Last Admin: 09/11/16 13:20 Dose: 10 ml Haloperidol (Haldol) 2 mg PO Q6 PRN PRN Reason: Moderate Agitation Last Admin: 09/11/16 13:20 Dose: 2 mg Haloperidol Lactate (Haldol) 2 mg IM Q6 PRN PRN Reason: Agitation Last Admin: 09/06/16 06:07 Dose: 2 mg Insulin Glargine (Lantus) 6 unit SC HS [facility] Last Admin: 09/10/16 21:23 Dose: 6 units Levothyroxine Sodium (Synthroid) 37.5 mcg PO DAILY@0630 [facility] Last Admin: 09/11/16 05:38 Dose: 37.5 mcg Metformin HCl (Glucophage) 1,000 mg PO BIDCC [facility] Last Admin: 09/11/16 07:53 Dose: 1,000 mg Pantoprazole Sodium (Protonix Ec Tab) 40 mg PO DAILY [facility] Last Admin: 09/11/16 09:53 Dose: 40 mg Quetiapine Fumarate (Seroquel) 100 mg PO HS [facility] Last Admin: 09/10/16 21:18 Dose: 100 mg Quetiapine Fumarate (Seroquel) 50 mg PO DAILY [facility] Last Admin: 09/11/16 09:55 Dose: 50 mg Rosuvastatin Calcium (Crestor) 5 mg PO HS [facility] Last Admin: 09/10/16 21:18 Dose: 5 mg Fluticasone/Salmeterol (Advair Diskus 250/50) 1 puff INH RQ12 [facility] Last Admin: 09/11/16 08:14 Dose: Not Given Tamsulosin HCl (Flomax) 0.4 mg PO DAILY [facility] Last Admin: 09/11/16 09:53 Dose: 0.4 mg Tiotropium [place] (Spiriva) 18 mcg INH RQ24 [facility] Last Admin: 09/11/16 08:15 Dose: 18 mcg - Labs Labs: 09/11/16 11:36 09/11/16 11:36 - Constitutional Appears: Well - Head Exam Head Exam: ATRAUMATIC, NORMAL INSPECTION, NORMOCEPHALIC - Eye Exam Eye Exam: EOMI, Normal appearance, PERRL Pupil Exam: NORMAL ACCOMODATION, PERRL - ENT Exam ENT Exam: Mucous Membranes Moist, Normal Exam - Neck Exam Neck Exam: Full ROM, Normal Inspection. absent: Lymphadenopathy - Respiratory Exam Respiratory Exam: Decreased Breath Sounds - Cardiovascular Exam Cardiovascular Exam: REGULAR RHYTHM, +S1, +S2 - GI/Abdominal Exam GI & Abdominal Exam: Soft, Diminished Bowel Sounds - Rectal Exam Rectal Exam: Deferred Assessment and Plan (1) Abnormal CXR (chest x-ray) Status: Acute (2) COPD (chronic obstructive pulmonary disease) Status: Acute (3) COPD exacerbation Status: Acute (4) Cardiac disease Status: Acute (5) Depression Status: Acute (6) Diabetes Status: Acute - Assessment and Plan (Free Text) Plan: Patient clinically stable No acute event Tolerating diet Pain meds Continue aspirin Continue Haldol Accu-Cheks Metformin Physical therapy Seroquel Statins Labs next a.m.
[2016-09-11] MEDS: (Lantus) Insulin Glargine, Recombinant SC SCH (21:08)
[2016-09-12] MEDS: Levothyroxine 75 MCG TAB PO SCH (05:41)
[2016-09-12] MEDS: Fluticasone-Salmeterol 250-50mcg Diskus INH SCH ×2 (07:59→20:25)
[2016-09-12] MEDS: Tiotropium 18 mcg Cap For Inhalation INH SCH (07:59)
[2016-09-12] MEDS: Divalproex 125 mg Sprinkle Capsule PO SCH ×2 (10:57→17:47)
[2016-09-12] MEDS: Pantoprazole 40 mg EC Tab PO SCH (10:58)
[2016-09-12] MEDS: guaiFENesin DM 200 mg-20 mg/10 ml UD PO SCH ×3 (10:59→17:46)
[2016-09-12] MEDS: Calcium Carbonate 500 mg Chewable Antacid Tab PO SCH ×2 (11:00→17:47)
--- NOTE | 2016-09-12 11:30 | CP.PCM.PN ---
Subjective - Date & Time of Evaluation Date of Evaluation: 09/12/16 Time of Evaluation: 07:20 - Subjective Subjective: clinically same Objective - Vital Signs/Intake and Output Vital Signs (last 24 hours): Temp Pulse Resp BP Pulse Ox 97.5 F L 69 20 106/70 100 09/12/16 08:00 09/12/16 08:00 09/12/16 08:00 09/12/16 08:00 09/12/16 08:00 Intake and Output: 09/12/16 09/12/16 06:59 18:59 Intake Total 980 Balance 980 - Medications Medications: Current Medications Acetaminophen (Tylenol 325mg Tab) 650 mg PO Q6 PRN PRN Reason: Pain, Mild (1-3) Last Admin: 09/10/16 14:22 Dose: 650 mg Aspirin (Aspirin Chewable) 81 mg PO DAILY [facility] Last Admin: 09/12/16 10:58 Dose: 81 mg Calcium Carbonate (Tums) 500 mg PO BID [facility] Last Admin: 09/12/16 11:00 Dose: 500 mg Diphenhydramine HCl (Benadryl) 25 mg PO Q6 PRN PRN Reason: Extra Pyramidal Symptoms Divalproex Sodium (Depakote Sprinkles) 125 mg PO BID [facility] Last Admin: 09/12/16 10:57 Dose: 125 mg Ferrous Sulfate (Feosol) 325 mg PO TID [facility] Last Admin: 09/12/16 10:58 Dose: 325 mg Guaifenesin/Dextromethorphan (Robitussin Dm) 10 ml PO TID [facility] Last Admin: 09/12/16 10:59 Dose: 10 ml Haloperidol (Haldol) 2 mg PO Q6 PRN PRN Reason: Moderate Agitation Last Admin: 09/12/16 10:58 Dose: 2 mg Haloperidol Lactate (Haldol) 2 mg IM Q6 PRN PRN Reason: Agitation Last Admin: 09/11/16 19:16 Dose: 2 mg Insulin Glargine (Lantus) 6 unit SC [facility] Last Admin: 09/11/16 21:08 Dose: 6 units Levothyroxine Sodium (Synthroid) 37.5 mcg PO DAILY@0630 [facility] Last Admin: 09/12/16 05:41 Dose: 37.5 mcg [facility] Last Admin: 09/12/16 08:17 Dose: Not Given Pantoprazole Sodium (Protonix Ec Tab) 40 mg PO DAILY [facility] Last Admin: 09/12/16 10:58 Dose: 40 mg Quetiapine Fumarate (Seroquel) 100 mg PO HS [facility] Last Admin: 09/11/16 21:09 Dose: 100 mg Quetiapine Fumarate (Seroquel) 50 mg PO DAILY [facility] Last Admin: 09/12/16 10:58 Dose: 50 mg Rosuvastatin Calcium (Crestor) 5 mg PO HS [facility] Last Admin: 09/11/16 21:08 Dose: 5 mg Fluticasone/Salmeterol (Advair Diskus 250/50) 1 puff INH RQ12 [facility] Last Admin: 09/12/16 07:59 Dose: Not Given Tamsulosin HCl (Flomax) 0.4 mg PO DAILY [facility] Last Admin: 09/12/16 10:58 Dose: 0.4 mg Tiotropium [place] (Spiriva) 18 mcg INH RQ24 [facility] Last Admin: 09/12/16 07:59 Dose: 18 mcg - Labs Labs: 09/11/16 11:36 09/11/16 11:36 - Constitutional Appears: Well - Head Exam Head Exam: ATRAUMATIC, NORMAL INSPECTION, NORMOCEPHALIC - Eye Exam Eye Exam: EOMI, Normal appearance, PERRL Pupil Exam: NORMAL ACCOMODATION, PERRL - ENT Exam ENT Exam: Mucous Membranes Moist, Normal Exam - Neck Exam Neck Exam: Full ROM, Normal Inspection. absent: Lymphadenopathy - Respiratory Exam Respiratory Exam: Decreased Breath Sounds - Cardiovascular Exam Cardiovascular Exam: REGULAR RHYTHM, +S1, +S2 - GI/Abdominal Exam GI & Abdominal Exam: Soft, Diminished Bowel Sounds - Rectal Exam Rectal Exam: Deferred Assessment and Plan (1) Abnormal CXR (chest x-ray) Status: Acute (2) COPD (chronic obstructive pulmonary disease) Status: Acute (3) COPD exacerbation Status: Acute (4) Cardiac disease Status: Acute (5) Depression Status: Acute (6) Diabetes Status: Acute - Assessment and Plan (Free Text) Plan: Patient comfortable Discussed with family No acute event Tolerating diet Pain meds Continue aspirin Continue Haldol Accu-Cheks Metformin Physical therapy Seroquel Statins Lantus
[2016-09-13] MEDS: Levothyroxine 75 MCG TAB PO SCH (06:10)
[2016-09-13] MEDS: Fluticasone-Salmeterol 250-50mcg Diskus INH SCH ×2 (08:20→20:15)
[2016-09-13] MEDS: Tiotropium 18 mcg Cap For Inhalation INH SCH (08:21)
[2016-09-13] MEDS: Calcium Carbonate 500 mg Chewable Antacid Tab PO SCH ×2 (10:58→17:41)
[2016-09-13] MEDS: Pantoprazole 40 mg EC Tab PO SCH (10:59)
[2016-09-13] MEDS: guaiFENesin DM 200 mg-20 mg/10 ml UD PO SCH ×3 (10:59→17:37)
[2016-09-13] MEDS: Divalproex 125 mg Sprinkle Capsule PO SCH ×2 (10:59→17:37)
--- NOTE | 2016-09-13 12:18 | CP.PCM.PN ---
Subjective - Date & Time of Evaluation Date of Evaluation: 09/13/16 Time of Evaluation: 07:20 - Subjective Subjective: clinically same Objective - Vital Signs/Intake and Output Vital Signs (last 24 hours): Temp Pulse Resp BP Pulse Ox 98.0 F 63 20 103/56 L 99 09/13/16 08:26 09/13/16 08:26 09/13/16 08:26 09/13/16 08:26 09/13/16 08:26 Intake and Output: 09/13/16 09/13/16 06:59 18:59 Intake Total 520 Output Total 202 Balance 318 - Medications Medications: Current Medications Acetaminophen (Tylenol 325mg Tab) 650 mg PO Q6 PRN PRN Reason: Pain, Mild (1-3) Last Admin: 09/10/16 14:22 Dose: 650 mg Aspirin (Aspirin Chewable) 81 mg PO DAILY [facility] Last Admin: 09/13/16 10:59 Dose: 81 mg Calcium Carbonate (Tums) 500 mg PO BID [facility] Last Admin: 09/13/16 10:58 Dose: 500 mg Diphenhydramine HCl (Benadryl) 25 mg PO Q6 PRN PRN Reason: Extra Pyramidal Symptoms Divalproex Sodium (Depakote Sprinkles) 125 mg PO BID [facility] Last Admin: 09/13/16 10:59 Dose: 125 mg Ferrous Sulfate (Feosol) 325 mg PO TID [facility] Last Admin: 09/13/16 10:58 Dose: 325 mg Guaifenesin/Dextromethorphan (Robitussin Dm) 10 ml PO TID [facility] Last Admin: 09/13/16 10:59 Dose: 10 ml Haloperidol (Haldol) 2 mg PO Q6 PRN PRN Reason: Moderate Agitation Last Admin: 09/13/16 06:17 Dose: 2 mg Haloperidol Lactate (Haldol) 2 mg IM Q6 PRN PRN Reason: Agitation Last Admin: 09/11/16 19:16 Dose: 2 mg Insulin Glargine (Lantus) 6 unit SC [facility] Last Admin: 09/11/16 21:08 Dose: 6 units Levothyroxine Sodium (Synthroid) 37.5 mcg PO DAILY@0630 [facility] Last Admin: 09/13/16 06:10 Dose: 37.5 mcg [facility] Last Admin: 09/13/16 08:51 Dose: 1,000 mg Pantoprazole Sodium (Protonix Ec Tab) 40 mg PO DAILY [facility] Last Admin: 09/13/16 10:59 Dose: 40 mg Quetiapine Fumarate (Seroquel) 100 mg PO HS [facility] Last Admin: 09/12/16 22:05 Dose: 100 mg Quetiapine Fumarate (Seroquel) 50 mg PO DAILY [facility] Last Admin: 09/13/16 10:59 Dose: 50 mg Rosuvastatin Calcium (Crestor) 5 mg PO HS [facility] Last Admin: 09/12/16 22:05 Dose: 5 mg Fluticasone/Salmeterol (Advair Diskus 250/50) 1 puff INH RQ12 [facility] Last Admin: 09/13/16 08:20 Dose: Not Given Tamsulosin HCl (Flomax) 0.4 mg PO DAILY [facility] Last Admin: 09/13/16 10:59 Dose: 0.4 mg Tiotropium [place] (Spiriva) 18 mcg INH RQ24 [facility] Last Admin: 09/13/16 08:21 Dose: 18 mcg - Labs Labs: 09/11/16 11:36 09/11/16 11:36 - Constitutional Appears: Well - Head Exam Head Exam: ATRAUMATIC, NORMAL INSPECTION, NORMOCEPHALIC - Eye Exam Eye Exam: EOMI, Normal appearance, PERRL Pupil Exam: NORMAL ACCOMODATION, PERRL - ENT Exam ENT Exam: Mucous Membranes Moist, Normal Exam - Neck Exam Neck Exam: Full ROM, Normal Inspection. absent: Lymphadenopathy - Respiratory Exam Respiratory Exam: Decreased Breath Sounds - Cardiovascular Exam Cardiovascular Exam: REGULAR RHYTHM, +S1, +S2 - GI/Abdominal Exam GI & Abdominal Exam: Soft, Diminished Bowel Sounds - Rectal Exam Rectal Exam: Deferred Assessment and Plan (1) Abnormal CXR (chest x-ray) Status: Acute (2) COPD (chronic obstructive pulmonary disease) Status: Acute (3) COPD exacerbation Status: Acute (4) Cardiac disease Status: Acute (5) Depression Status: Acute (6) Diabetes Status: Acute - Assessment and Plan (Free Text) Plan: Patient seen and examined at bedside Patient comfortable No acute event Tolerating diet Pain meds Seroquel Statins Continue aspirin Continue Haldol Accu-Cheks Metformin Physical therapy
[2016-09-13] MEDS: (Lantus) Insulin Glargine, Recombinant SC SCH (22:10)
[2016-09-14] MEDS: Levothyroxine 75 MCG TAB PO SCH (06:03)
[2016-09-14] MEDS: Fluticasone-Salmeterol 250-50mcg Diskus INH SCH ×2 (07:12→19:50)
[2016-09-14] MEDS: Tiotropium 18 mcg Cap For Inhalation INH SCH (07:12)
--- NOTE | 2016-09-14 09:30 | CP.PCM.PN ---
<Tamra Call - Last Filed: 09/14/16 14:46> Subjective - Date & Time of Evaluation Date of Evaluation: 09/14/16 Time of Evaluation: 07:05 - Subjective Subjective: PGY2 Progress note for Dr. Solis Pt is seen and examined at bedside. Patient states he feels "fabulous" today. Patient denies having any CP, SOB, abd pain, N/v/D/C. Patient is cooperative. 12 point ROS are negative except for the above mentioned. Objective - Vital Signs/Intake and Output Vital Signs (last 24 hours): Temp Pulse Resp BP Pulse Ox 97.6 F 76 20 118/71 97 09/14/16 08:00 09/14/16 08:00 09/14/16 08:00 09/14/16 08:00 09/14/16 08:00 Intake and Output: 09/14/16 09/14/16 06:59 18:59 Intake Total 450 Balance 450 - Medications Medications: Current Medications Acetaminophen (Tylenol 325mg Tab) 650 mg PO Q6 PRN PRN Reason: Pain, Mild (1-3) Last Admin: 09/10/16 14:22 Dose: 650 mg Aspirin (Aspirin Chewable) 81 mg PO DAILY [facility] Last Admin: 09/13/16 10:59 Dose: Not Given Calcium Carbonate (Tums) 500 mg PO BID [facility] Last Admin: 09/13/16 17:41 Dose: 500 mg Diphenhydramine HCl (Benadryl) 25 mg PO Q6 PRN PRN Reason: Extra Pyramidal Symptoms Divalproex Sodium (Depakote Sprinkles) 125 mg PO BID [facility] Last Admin: 09/13/16 17:37 Dose: 125 mg Ferrous Sulfate (Feosol) 325 mg PO TID [facility] Last Admin: 09/13/16 17:37 Dose: 325 mg Guaifenesin/Dextromethorphan (Robitussin Dm) 10 ml PO TID [facility] Last Admin: 09/13/16 17:37 Dose: 10 ml Haloperidol (Haldol) 2 mg PO Q6 PRN PRN Reason: Moderate Agitation Last Admin: 09/13/16 06:17 Dose: 2 mg Haloperidol Lactate (Haldol) 2 mg IM Q6 PRN PRN Reason: Agitation Last Admin: 09/11/16 19:16 Dose: 2 mg Insulin Glargine (Lantus) 6 unit SC [facility] Last Admin: 09/13/16 22:10 Dose: Not Given Levothyroxine Sodium (Synthroid) 37.5 mcg PO DAILY@0630 [facility] Last Admin: 09/14/16 06:03 Dose: 37.5 mcg Metformin HCl (Glucophage) 1,000 mg PO BIDCC [facility] Last Admin: 09/13/16 17:37 Dose: 1,000 mg Pantoprazole Sodium (Protonix Ec Tab) 40 mg PO DAILY [facility] Last Admin: 09/13/16 10:59 Dose: Not Given Quetiapine Fumarate (Seroquel) 100 mg PO [facility] Last Admin: 09/13/16 21:45 Dose: 100 mg Quetiapine Fumarate (Seroquel) 50 mg PO DAILY [facility] Last Admin: 09/13/16 10:59 Dose: Not Given Rosuvastatin Calcium (Crestor) 5 mg PO [facility] Last Admin: 09/13/16 21:45 Dose: 5 mg Fluticasone/Salmeterol (Advair Diskus 250/50) 1 puff INH RQ12 [facility] Last Admin: 09/14/16 07:12 Dose: Not Given Tamsulosin HCl (Flomax) 0.4 mg PO DAILY [facility] Last Admin: 09/13/16 10:59 Dose: Not Given Tiotropium [place] (Spiriva) 18 mcg INH RQ24 [facility] Last Admin: 09/14/16 07:12 Dose: Not Given - Labs Labs: 09/11/16 11:36 09/11/16 11:36 - Constitutional Appears: Non-toxic, No Acute Distress, Cachectic, Chronically Ill - Head Exam Head Exam: ATRAUMATIC, NORMAL INSPECTION - Eye Exam Eye Exam: EOMI, PERRL Pupil Exam: NORMAL ACCOMODATION - ENT Exam ENT Exam: Mucous Membranes Moist - Respiratory Exam Respiratory Exam: Clear to Ausculation Bilateral, NORMAL BREATHING PATTERN. absent: Respiratory Distress - Cardiovascular Exam Cardiovascular Exam: REGULAR RHYTHM, +S1, +S2 - GI/Abdominal Exam GI & Abdominal Exam: Soft, Normal Bowel Sounds. absent: Distended, Firm, Guarding, Tenderness - Extremities Exam Extremities Exam: Normal Inspection. absent: Calf Tenderness Additional comments: muscle wasting - Back Exam Back Exam: NORMAL INSPECTION. absent: CVA tenderness (L), CVA tenderness (R), paraspinal tenderness - Neurological Exam Neurological Exam: Alert, Awake - Psychiatric Exam Psychiatric exam: Normal Affect, Normal Mood - Skin Skin Exam: Dry, Intact, Normal Color, Warm Assessment and Plan - Assessment and Plan (Free Text) Assessment: 1) L2 Compression Fracture Continue physical therapy as tolerated. Will continue out of bed to chair as tolerated Consult Ortho, help appreciated - Dr. Villareal / Tad Akbar Consult neurosurgery- help appreciated- Dr. Chaevz Per neurosurgery, Dr. Acuña, patient does not need intervention for L2 fracture. No evidence of retropulsion to cord. Stable. Chronic. Ortho and Neurosurgery recommend bed rest and physical therapy. Physical therapy as tolerated. Continue Out of bed to chair. Imaging: CT confirms acute appearing L2 compression fracture, no retropulsion seen per report. Ill defined soft tissue density seen, ? edema. Would recommend attempt MRI (unsure if patient will tolerate and cooperate) for further visualization. * Neurosurgery Consulted, Dr. Rose. Lumbar XRAY 08/11: - 1. Age indeterminate acute superior endplate compression fracture in the L2 vertebral body with 4 mm retrolisthesis. 2. Mild multilevel degenerative disc disease, worse at L5-S1. see full report. 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 Will continue current psych medications per Dr. Bajwa's recommendations. No recent reported incidences of behavioral disturbances Continue seroquel 50 mg po QD and seroquel 100 mg po HS and depakote sprinkles 125 mg po BID per psych recs Haldol 2mg IM Q6 PRN, agitation Haldol 2mg PO Q6H PRN, moderate agitation Patient off Remeron since 07/31/16. Remeron recommended by psych. However, patient's mood stable. Will add as needed. Will discuss with Dr. Bajwa about how often the behavioral disturbances are occurring in order for further placement into [place] [facility] 3) Depression No SI/HI. Monitor Psych Dr. Bajwa consulted, help appreciated. Management as above 4) Chest Pain Resolved. As per Dr. Marinelli, likely secondary to [employer] as per consult 07/23/16. ROMIs negative EKG with LBBB as prior EKGs have also shown Cardio consult - Dr. Marinelli - help appreciated ECHO - left ventricular is normal size. there is mild to moderate concentric left ventricular hypertrophy. the systolic function is midly to moderately impaired. septal hypokinesis. mild to moderate aortic regurgitation. mild pulmonary hypertension. (please see full report) 5) Nodular opacity in chest Pulm consult - Dr. Hayden - help appreciated Chest CT - extensive bilateral fine nodular interstitial infiltrate both lower lobes. dense pleural based consolidation right lower lobe. subpleural emphysema. mild centrilobular pulmonary emphysema. left upper lobe nodules. 7mm and 9mm. reccomend f/u noncontrast chest CT in 3 months. Multiple left upper lobe nodular calcifications, likely granulomatous. probable small airways disease posterior right upper lobe. findings are nonspecific and may reflect infection or inflammatory disease. Patient needs to f/u outpatient per Dr. Hayden for nodular opacity in chest + COPD. 6) COPD Pulm consult - Dr. Hayden - help appreciated Advair and Spiriva 7) DM RISS, accuchecks. Lantus 10U SC HS, Metformin 8) Hypothyroid Continue synthroid 37.5 mcg po qd. 9) Hx of cardiac disease Continue Eliquis, ASA, Crestor. 10) Prophylactic measure Protonix 40 mg PO daily Eliquis 2.5 mg Po BID Social work referral. -Labs ordered MWF. -PT rec -> [facility] Disposition Case management is consulted: Pending rehab placement. Patient must not have any behavioral disturbances for 1 week and be cleared by psych for placement to rehab. All Medical Management per Dr. Solis <Perla Solis S - Last Filed: 09/14/16 19:40> Objective - Vital Signs/Intake and Output Vital Signs (last 24 hours): Temp Pulse Resp BP Pulse Ox 98.4 F 69 20 103/55 L 97 09/14/16 16:00 09/14/16 16:00 09/14/16 16:00 09/14/16 16:00 09/14/16 16:00 Intake and Output: 09/14/16 09/15/16 18:59 06:59 Intake Total 240 Balance 240 - Medications Medications: Current Medications Acetaminophen (Tylenol 325mg Tab) 650 mg PO Q6 PRN PRN Reason: Pain, Mild (1-3) Last Admin: 09/10/16 14:22 Dose: 650 mg Aspirin (Aspirin Chewable) 81 mg PO DAILY [facility] Last Admin: 09/14/16 11:53 Dose: 81 mg Calcium Carbonate (Tums) 500 mg PO BID [facility] Last Admin: 09/14/16 11:55 Dose: Not Given Divalproex Sodium (Depakote Sprinkles) 125 mg PO BID [facility] Last Admin: 09/14/16 17:41 Dose: 125 mg Ferrous Sulfate (Feosol) 325 mg PO TID [facility] Last Admin: 09/14/16 17:41 Dose: 325 mg Guaifenesin/Dextromethorphan (Robitussin Dm) 10 ml PO TID [facility] Last Admin: 09/14/16 17:41 Dose: 10 ml Insulin Glargine (Lantus) 6 unit SC [facility] Last Admin: 09/13/16 22:10 Dose: Not Given Levothyroxine Sodium (Synthroid) 37.5 mcg PO DAILY@0630 [facility] Last Admin: 09/14/16 06:03 Dose: 37.5 mcg Metformin HCl (Glucophage) 1,000 mg PO BIDCC [facility] Last Admin: 09/14/16 17:41 Dose: 1,000 mg Pantoprazole Sodium (Protonix Ec Tab) 40 mg PO DAILY [facility] Last Admin: 09/14/16 11:54 Dose: 40 mg Quetiapine Fumarate (Seroquel) 100 mg PO HS [facility] Last Admin: 09/13/16 21:45 Dose: 100 mg Quetiapine Fumarate (Seroquel) 50 mg PO DAILY [facility] Last Admin: 09/14/16 11:55 Dose: 50 mg Rosuvastatin Calcium (Crestor) 5 mg PO HS [facility] Last Admin: 09/13/16 21:45 Dose: 5 mg Fluticasone/Salmeterol (Advair Diskus 250/50) 1 puff INH RQ12 [facility] Last Admin: 09/14/16 07:12 Dose: Not Given Tamsulosin HCl (Flomax) 0.4 mg PO DAILY [facility] Last Admin: 09/14/16 11:54 Dose: 0.4 mg Tiotropium [place] (Spiriva) 18 mcg INH RQ24 [facility] Last Admin: 09/14/16 07:12 Dose: Not Given - Labs Labs: 09/11/16 11:36 09/11/16 11:36 Assessment and Plan (1) Abnormal CXR (chest x-ray) Status: Acute (2) COPD (chronic obstructive pulmonary disease) Status: Acute (3) COPD exacerbation Status: Acute (4) Cardiac disease Status: Acute (5) Depression Status: Acute (6) Diabetes Status: Acute Attending/Attestation - Attestation I have personally seen and examined this patient.: Yes I have fully participated in the care of the patient.: Yes I have reviewed all pertinent clinical information, including history, physical exam and plan: Yes Notes (Text): 09/14/16 19:39 Patient has no behavioral disturbances patient is okay to discharge to the rehab patient is clear by the psych continue same
[2016-09-14] MEDS: Pantoprazole 40 mg EC Tab PO SCH (11:54)
[2016-09-14] MEDS: Divalproex 125 mg Sprinkle Capsule PO SCH ×2 (11:54→17:41)
[2016-09-14] MEDS: guaiFENesin DM 200 mg-20 mg/10 ml UD PO SCH ×3 (11:55→17:41)
[2016-09-14] MEDS: Calcium Carbonate 500 mg Chewable Antacid Tab PO SCH ×2 (11:55→22:20)
--- NOTE | 2016-09-14 17:57 | CP.PCM.PN ---
Subjective - Date & Time of Evaluation Date of Evaluation: 09/14/16 Time of Evaluation: 07:20 - Subjective Subjective: clinically same Objective - Vital Signs/Intake and Output Vital Signs (last 24 hours): Temp Pulse Resp BP Pulse Ox 98.4 F 69 20 103/55 L 97 09/14/16 16:00 09/14/16 16:00 09/14/16 16:00 09/14/16 16:00 09/14/16 16:00 Intake and Output: 09/14/16 09/14/16 06:59 18:59 Intake Total 450 240 Balance 450 240 - Medications Medications: Current Medications Acetaminophen (Tylenol 325mg Tab) 650 mg PO Q6 PRN PRN Reason: Pain, Mild (1-3) Last Admin: 09/10/16 14:22 Dose: 650 mg Aspirin (Aspirin Chewable) 81 mg PO DAILY [facility] Last Admin: 09/14/16 11:53 Dose: 81 mg Calcium Carbonate (Tums) 500 mg PO BID [facility] Last Admin: 09/14/16 11:55 Dose: Not Given Divalproex Sodium (Depakote Sprinkles) 125 mg PO BID [facility] Last Admin: 09/14/16 17:41 Dose: 125 mg Ferrous Sulfate (Feosol) 325 mg PO TID [facility] Last Admin: 09/14/16 17:41 Dose: 325 mg Guaifenesin/Dextromethorphan (Robitussin Dm) 10 ml PO TID [facility] Last Admin: 09/14/16 17:41 Dose: 10 ml Insulin Glargine (Lantus) 6 unit SC [facility] Last Admin: 09/13/16 22:10 Dose: Not Given Levothyroxine Sodium (Synthroid) 37.5 mcg PO DAILY@0630 [facility] Last Admin: 09/14/16 06:03 Dose: 37.5 mcg Metformin HCl (Glucophage) 1,000 mg PO BIDCC [facility] Last Admin: 09/14/16 17:41 Dose: 1,000 mg Pantoprazole Sodium (Protonix Ec Tab) 40 mg PO DAILY [facility] Last Admin: 09/14/16 11:54 Dose: 40 mg Quetiapine Fumarate (Seroquel) 100 mg PO HS [facility] Last Admin: 09/13/16 21:45 Dose: 100 mg Quetiapine Fumarate (Seroquel) 50 mg PO DAILY [facility] Last Admin: 09/14/16 11:55 Dose: 50 mg Rosuvastatin Calcium (Crestor) 5 mg PO HS [facility] Last Admin: 09/13/16 21:45 Dose: 5 mg Fluticasone/Salmeterol (Advair Diskus 250/50) 1 puff INH RQ12 [facility] Last Admin: 09/14/16 07:12 Dose: Not Given Tamsulosin HCl (Flomax) 0.4 mg PO DAILY [facility] Last Admin: 09/14/16 11:54 Dose: 0.4 mg Tiotropium [place] (Spiriva) 18 mcg INH RQ24 [facility] Last Admin: 09/14/16 07:12 Dose: Not Given - Labs Labs: 09/11/16 11:36 09/11/16 11:36 - Constitutional Appears: Well - Head Exam Head Exam: ATRAUMATIC, NORMAL INSPECTION, NORMOCEPHALIC - Eye Exam Eye Exam: EOMI, Normal appearance, PERRL Pupil Exam: NORMAL ACCOMODATION, PERRL - ENT Exam ENT Exam: Mucous Membranes Moist, Normal Exam - Neck Exam Neck Exam: Full ROM, Normal Inspection. absent: Lymphadenopathy - Respiratory Exam Respiratory Exam: Decreased Breath Sounds - Cardiovascular Exam Cardiovascular Exam: REGULAR RHYTHM, +S1, +S2 - GI/Abdominal Exam GI & Abdominal Exam: Soft, Diminished Bowel Sounds - Rectal Exam Rectal Exam: Deferred Assessment and Plan (1) Abnormal CXR (chest x-ray) Status: Acute (2) COPD (chronic obstructive pulmonary disease) Status: Acute (3) COPD exacerbation Status: Acute (4) Cardiac disease Status: Acute (5) Depression Status: Acute (6) Diabetes Status: Acute - Assessment and Plan (Free Text) Plan: ) L2 Compression Fracture Continue physical therapy as tolerated. Will continue out of bed to chair as tolerated Consult Ortho, help appreciated - Dr. Villareal / Tad Akbar Consult neurosurgery- help appreciated- Dr. Chavez Per neurosurgery, Dr. Acuña, patient does not need intervention for L2 fracture. No evidence of retropulsion to cord. Stable. Chronic. Ortho and Neurosurgery recommend bed rest and physical therapy. Physical therapy as tolerated. Continue Out of bed to chair. Imaging: CT confirms acute appearing L2 compression fracture, no retropulsion seen per report. Ill defined soft tissue density seen, ? edema. Would recommend attempt MRI (unsure if patient will tolerate and cooperate) for further visualization. Neurosurgery Consulted, Dr. Rose. Lumbar XRAY 08/11: - 1. Age indeterminate acute superior endplate compression fracture in the L2 vertebral body with 4 mm retrolisthesis. 2. Mild multilevel degenerative disc disease, worse at L5-S1. see full report. 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 Will continue current psych medications per Dr. Bajwa's recommendations. No recent reported incidences of behavioral disturbances Continue seroquel 50 mg po QD and seroquel 100 mg po HS and depakote sprinkles 125 mg po BID per psych recs Haldol 2mg IM Q6 PRN, agitation Haldol 2mg PO Q6H PRN, moderate agitation Patient off Remeron since 07/31/16. Remeron recommended by psych. However, patient's mood stable. Will add as needed. Will discuss with Dr. Bajwa about how often the behavioral disturbances are occurring in order for further placement into senior care 3) Depression No SI/HI. Monitor Psych Dr. Bajwa consulted, help appreciated. Management as above 4) Chest Pain Resolved. As per Dr. Marinelli, likely secondary to ZANJERO as per consult 07/23/16. ROMIs negative EKG with LBBB as prior EKGs have also shown Cardio consult - Dr. Marinelli - help appreciated ECHO - left ventricular is normal size. there is mild to moderate concentric left ventricular hypertrophy. the systolic function is midly to moderately impaired. septal hypokinesis. mild to moderate aortic regurgitation. mild pulmonary hypertension. (please see full report) 5) Nodular opacity in chest Pulm consult - Dr. Hayden - help appreciated Chest CT - extensive bilateral fine nodular interstitial infiltrate both lower lobes. dense pleural based consolidation right lower lobe. subpleural emphysema. mild centrilobular pulmonary emphysema. left upper lobe nodules. 7mm and 9mm. reccomend f/u noncontrast chest CT in 3 months. Multiple left upper lobe nodular calcifications, likely granulomatous. probable small airways disease posterior right upper lobe. findings are nonspecific and may reflect infection or inflammatory disease. Patient needs to f/u outpatient per Dr. Hayden for nodular opacity in chest + COPD. 6) COPD Pulm consult - Dr. Hayden - help appreciated Advair and Spiriva 7) DM RISS, accuchecks. Lantus 10U SC HS, Metformin 8) Hypothyroid Continue synthroid 37.5 mcg po qd. 9) Hx of cardiac disease Continue Eliquis, ASA, Crestor. 10) Prophylactic measure Protonix 40 mg PO daily Eliquis 2.5 mg Po BID Social work referral. -Labs ordered MWF. -PT rec -> DAPHNEY Disposition Case management is consulted: Pending rehab placement. Patient must not have any behavioral disturbances for 1 week and be cleared by psych for placement to rehab. All Medical Management per Dr. Solis
[2016-09-14] MEDS: (Lantus) Insulin Glargine, Recombinant SC SCH (22:22)
[2016-09-15] MEDS: Levothyroxine 75 MCG TAB PO SCH (07:09)
[2016-09-15] MEDS: Tiotropium 18 mcg Cap For Inhalation INH SCH (07:46)
[2016-09-15] MEDS: Fluticasone-Salmeterol 250-50mcg Diskus INH SCH (07:46)
[2016-09-15 08:13] LABS: BASO % 0.4 % (0.0-2.0); EOS # 0.2 K/uL (0.0-0.7); EOS % 2.2 % (0.0-4.0); HEMATOCRIT 30.5 % (35.0-51.0); LYMPH # 1.9 K/uL (1.0-4.3); LYMPH % 25.5 % (20.0-40.0); MEAN CELL VOLUME 86.1 fL (80.0-94.0); MEAN CORPUSCULAR HEMOGLOBIN 27.7 pg (27.0-31.0); MEAN CORPUSCULAR HGB CONC 32.2 g/dL (33.0-37.0); MEAN PLATELET VOLUME 8.4 fL (7.2-11.7); MONO # 0.9 K/uL (0.0-0.8); MONO % 12.1 % (0.0-10.0); RED CELL DISTRIBUTION WIDTH 17.7 % (11.5-14.5); WHITE BLOOD COUNT 7.4 K/uL (4.8-10.8)
[2016-09-15 08:53] LABS: CHLORIDE 98 mmol/L (98-107)
[2016-09-15 08:54] LABS: POTASSIUM 4.2 mmol/L (3.6-5.2); SODIUM 137 mmol/L (132-148)
[2016-09-15 08:56] LABS: ALKALINE PHOSPHATASE 35 U/L (38-126); AST/SGOT 14 U/L (17-59); BILIRUBIN,TOTAL 0.3 mg/dL (0.2-1.3); BLOOD UREA NITROGEN 27 mg/dL (9-20); CARBON DIOXIDE 30 mmol/L (22-30); GFR AFRICAN-AMERICAN > 60; TOTAL PROTEIN 5.1 g/dL (6.3-8.3)
[2016-09-15 08:57] LABS: ALT/SGPT 19 U/L (21-72); CALCIUM 8.4 mg/dl (8.6-10.4); GLUCOSE,RANDOM 98 mg/dL (75-110); MAGNESIUM 1.4 mg/dL (1.6-2.3); PHOSPHOROUS 3.2 mg/dL (2.5-4.5)
[2016-09-15] MEDS: guaiFENesin DM 200 mg-20 mg/10 ml UD PO SCH ×3 (09:42→17:46)
[2016-09-15] MEDS: Divalproex 125 mg Sprinkle Capsule PO SCH ×2 (09:42→17:47)
[2016-09-15] MEDS: Pantoprazole 40 mg EC Tab PO SCH (09:43)
--- NOTE | 2016-09-15 10:47 | CP.PCM.PN ---
<Harris Sim - Last Filed: 09/15/16 16:09> Subjective - Date & Time of Evaluation Date of Evaluation: 09/15/16 Time of Evaluation: 10:46 - Subjective Subjective: Hospitalist resident progress note for Dr. Solis Patient seen and examined at bedside. No acute events overnight. No reported behavioral disturbances. Patient has no current complaints. He denies headache, fever, chills, shortness of breath, chest pain, nausea, vomiting, or diarrhea. 12 point ROS are negative except for the above mentioned. Objective - Vital Signs/Intake and Output Vital Signs (last 24 hours): Temp Pulse Resp BP Pulse Ox 97.7 F 63 20 104/61 99 09/15/16 08:37 09/15/16 08:37 09/15/16 08:37 09/15/16 08:37 09/15/16 08:37 Intake and Output: 09/15/16 09/15/16 06:59 18:59 Intake Total 150 Balance 150 - Medications Medications: Current Medications Acetaminophen (Tylenol 325mg Tab) 650 mg PO Q6 PRN PRN Reason: Pain, Mild (1-3) Last Admin: 09/10/16 14:22 Dose: 650 mg Aspirin (Aspirin Chewable) 81 mg PO DAILY [facility] Last Admin: 09/15/16 09:43 Dose: 81 mg Calcium Carbonate (Tums) 500 mg PO BID [facility] Last Admin: 09/14/16 22:20 Dose: 500 mg Divalproex Sodium (Depakote Sprinkles) 125 mg PO BID [facility] Last Admin: 09/15/16 09:42 Dose: 125 mg Ferrous Sulfate (Feosol) 325 mg PO TID [facility] Last Admin: 09/15/16 09:43 Dose: 325 mg Guaifenesin/Dextromethorphan (Robitussin Dm) 10 ml PO TID [facility] Last Admin: 09/15/16 09:42 Dose: 10 ml Insulin Glargine (Lantus) 6 unit SC [facility] Last Admin: 09/14/16 22:22 Dose: Not Given Levothyroxine Sodium (Synthroid) 37.5 mcg PO DAILY@0630 [facility] Last Admin: 09/15/16 07:09 Dose: 37.5 mcg [facility] Last Admin: 09/15/16 08:53 Dose: 1,000 mg Pantoprazole Sodium (Protonix Ec Tab) 40 mg PO DAILY [facility] Last Admin: 09/15/16 09:43 Dose: 40 mg Quetiapine Fumarate (Seroquel) 100 mg PO [facility] Last Admin: 09/14/16 21:46 Dose: 100 mg Quetiapine Fumarate (Seroquel) 50 mg PO DAILY [facility] Last Admin: 09/15/16 09:42 Dose: 50 mg Rosuvastatin Calcium (Crestor) 5 mg PO [facility] Last Admin: 09/14/16 21:45 Dose: 5 mg Fluticasone/Salmeterol (Advair Diskus 250/50) 1 puff INH RQ12 [facility] Last Admin: 09/15/16 07:46 Dose: 1 puff Tamsulosin HCl (Flomax) 0.4 mg PO DAILY [facility] Last Admin: 09/15/16 09:42 Dose: 0.4 mg Tiotropium [place] (Spiriva) 18 mcg INH RQ24 [facility] Last Admin: 09/15/16 07:46 Dose: 18 mcg - Labs Labs: 09/15/16 08:04 09/15/16 08:04 - Constitutional Appears: Non-toxic, No Acute Distress, Chronically Ill - Head Exam Head Exam: ATRAUMATIC, NORMAL INSPECTION, NORMOCEPHALIC - Eye Exam Eye Exam: EOMI, Normal appearance, PERRL Pupil Exam: NORMAL ACCOMODATION, PERRL - ENT Exam ENT Exam: Mucous Membranes Moist - Respiratory Exam Respiratory Exam: Clear to Ausculation Bilateral, NORMAL BREATHING PATTERN. absent: Respiratory Distress - Cardiovascular Exam Cardiovascular Exam: REGULAR RHYTHM, +S1, +S2. absent: Murmur - GI/Abdominal Exam GI & Abdominal Exam: Soft, Normal Bowel Sounds. absent: Tenderness - Extremities Exam Extremities Exam: absent: Pedal Edema - Back Exam Back Exam: NORMAL INSPECTION - Neurological Exam Neurological Exam: Alert, Awake, Oriented x3 - Psychiatric Exam Psychiatric exam: Normal Affect, Normal Mood - Skin Skin Exam: Dry, Normal Color, Warm Assessment and Plan - Assessment and Plan (Free Text) Assessment: 1) L2 Compression Fracture Continue physical therapy as tolerated. Will continue out of bed to chair as tolerated Follow Ortho and neurosurgery recommendations: bed rest and physical therapy No neurosurgical intervention at this time Physical therapy as tolerated Continue Out of bed to chair Imaging: CT confirms acute appearing L2 compression fracture, no retropulsion seen per report. Ill defined soft tissue density seen, ? edema. Would recommend attempt MRI (unsure if patient will tolerate and cooperate) for further visualization. * Neurosurgery Consulted, Dr. Rose. Lumbar XRAY 08/11: - 1. Age indeterminate acute superior endplate compression fracture in the L2 vertebral body with 4 mm retrolisthesis. 2. Mild multilevel degenerative disc disease, worse at L5-S1. see full report. 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 Will continue current psych medications per Dr. Bajwa's recommendations. No recent reported incidences of behavioral disturbances Continue seroquel 50 mg po QD and seroquel 100 mg po HS and depakote sprinkles 125 mg po BID per psych recs Haldol 2mg IM Q6 PRN, agitation Haldol 2mg PO Q6H PRN, moderate agitation Patient off Remeron since 07/31/16. Remeron recommended by psych. However, patient's mood stable. Will add as needed. Will discuss with Dr. Bajwa about how often the behavioral disturbances are occurring in order for further placement into correction 3) Depression No SI/HI. Monitor Psych Dr. Bajwa consulted, help appreciated. Management as above 4) Chest Pain Resolved. As per Dr. 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 ROMIs negative EKG with LBBB as prior EKGs have also shown Cardio consult - Dr. Marinelli - help appreciated ECHO - left ventricular is normal size. there is mild to moderate concentric left ventricular hypertrophy. the systolic function is midly to moderately impaired. septal hypokinesis. mild to moderate aortic regurgitation. mild pulmonary hypertension. (please see full report) 5) Nodular opacity in chest Pulm consult - Dr. Hayden - help appreciated Chest CT - extensive bilateral fine nodular interstitial infiltrate both lower lobes. dense pleural based consolidation right lower lobe. subpleural emphysema. mild centrilobular pulmonary emphysema. left upper lobe nodules. 7mm and 9mm. reccomend f/u noncontrast chest CT in 3 months. Multiple left upper lobe nodular calcifications, likely granulomatous. probable small airways disease posterior right upper lobe. findings are nonspecific and may reflect infection or inflammatory disease. Patient needs to f/u outpatient per Dr. Hayden for nodular opacity in chest + COPD. 6) COPD Pulm consult - Dr. Hayden - help appreciated Advair and Spiriva 7) DM RISS, accuchecks. Lantus 10U SC HS, Metformin 8) Hypothyroid Continue synthroid 37.5 mcg po qd. 9) Hx of cardiac disease Continue Eliquis, ASA, Crestor. 10) Prophylactic measure Protonix 40 mg PO daily Eliquis 2.5 mg Po BID Social work referral Labs ordered [facility] PT recommends DAPHNEY Disposition Pending placement at [facility]3] per case sealer Case discussed with attending Dr. Solis <Perla Solis S - Last Filed: 09/15/16 18:35> Objective - Vital Signs/Intake and Output Vital Signs (last 24 hours): Temp Pulse Resp BP Pulse Ox 98.8 F 71 20 106/49 L 96 09/15/16 15:56 09/15/16 15:56 09/15/16 15:56 09/15/16 15:56 09/15/16 15:56 Intake and Output: 09/15/16 09/15/16 06:59 18:59 Intake Total 150 240 Balance 150 240 - Medications Medications: Current Medications Acetaminophen (Tylenol 325mg Tab) 650 mg PO Q6 PRN PRN Reason: Pain, Mild (1-3) Last Admin: 09/10/16 14:22 Dose: 650 mg Aspirin (Aspirin Chewable) 81 mg PO DAILY [facility] Last Admin: 09/15/16 09:43 Dose: 81 mg Calcium Carbonate (Tums) 500 mg PO BID [facility] Last Admin: 09/15/16 12:33 Dose: 500 mg Divalproex Sodium (Depakote Sprinkles) 125 mg PO BID [facility] Last Admin: 09/15/16 17:47 Dose: 125 mg Ferrous Sulfate (Feosol) 325 mg PO TID [facility] Last Admin: 09/15/16 17:51 Dose: 325 mg Guaifenesin/Dextromethorphan (Robitussin Dm) 10 ml PO TID [facility] Last Admin: 09/15/16 17:46 Dose: 10 ml Insulin Glargine (Lantus) 6 unit SC HS [facility] Last Admin: 09/14/16 22:22 Dose: Not Given Levothyroxine Sodium (Synthroid) 37.5 mcg PO DAILY@0630 [facility] Last Admin: 09/15/16 07:09 Dose: 37.5 mcg Metformin HCl (Glucophage) 1,000 mg PO BIDCC [facility] Last Admin: 09/15/16 17:46 Dose: 1,000 mg Pantoprazole Sodium (Protonix Ec Tab) 40 mg PO DAILY [facility] Last Admin: 09/15/16 09:43 Dose: 40 mg Quetiapine Fumarate (Seroquel) 100 mg PO HS [facility] Last Admin: 09/14/16 21:46 Dose: 100 mg Quetiapine Fumarate (Seroquel) 50 mg PO DAILY [facility] Last Admin: 09/15/16 09:42 Dose: 50 mg Rosuvastatin Calcium (Crestor) 5 mg PO HS [facility] Last Admin: 09/14/16 21:45 Dose: 5 mg Fluticasone/Salmeterol (Advair Diskus 250/50) 1 puff INH RQ12 [facility] Last Admin: 09/15/16 07:46 Dose: 1 puff Tamsulosin HCl (Flomax) 0.4 mg PO DAILY [facility] Last Admin: 09/15/16 09:42 Dose: 0.4 mg Tiotropium [place] (Spiriva) 18 mcg INH RQ24 [facility] Last Admin: 09/15/16 07:46 Dose: 18 mcg - Labs Labs: 09/15/16 08:04 09/15/16 08:04 Assessment and Plan (1) Abnormal CXR (chest x-ray) Status: Acute (2) COPD (chronic obstructive pulmonary disease) Status: Acute (3) COPD exacerbation Status: Acute (4) Cardiac disease Status: Acute (5) Depression Status: Acute (6) Diabetes Status: Acute Attending/Attestation - Attestation I have personally seen and examined this patient.: Yes I have fully participated in the care of the patient.: Yes I have reviewed all pertinent clinical information, including history, physical exam and plan: Yes Notes (Text): 09/15/16 18:34 Case seen and discussed with the staff and resident awaiting for the placement discussed with the social work nurse and case sealer for Rafael camarillo
[2016-09-15] MEDS: Calcium Carbonate 500 mg Chewable Antacid Tab PO SCH ×2 (12:33→21:34)
--- NOTE | 2016-09-15 16:38 | CP.PCM.PN ---
Subjective - Date & Time of Evaluation Date of Evaluation: 09/15/16 Time of Evaluation: 07:20 - Subjective Subjective: clinically same Objective - Vital Signs/Intake and Output Vital Signs (last 24 hours): Temp Pulse Resp BP Pulse Ox 98.8 F 71 20 106/49 L 96 09/15/16 15:56 09/15/16 15:56 09/15/16 15:56 09/15/16 15:56 09/15/16 15:56 Intake and Output: 09/15/16 09/15/16 06:59 18:59 Intake Total 150 240 Balance 150 240 - Medications Medications: Current Medications Acetaminophen (Tylenol 325mg Tab) 650 mg PO Q6 PRN PRN Reason: Pain, Mild (1-3) Last Admin: 09/10/16 14:22 Dose: 650 mg Aspirin (Aspirin Chewable) 81 mg PO DAILY [facility] Last Admin: 09/15/16 09:43 Dose: 81 mg Calcium Carbonate (Tums) 500 mg PO BID [facility] Last Admin: 09/15/16 12:33 Dose: 500 mg Divalproex Sodium (Depakote Sprinkles) 125 mg PO BID [facility] Last Admin: 09/15/16 09:42 Dose: 125 mg Ferrous Sulfate (Feosol) 325 mg PO TID [facility] Last Admin: 09/15/16 13:04 Dose: 325 mg Guaifenesin/Dextromethorphan (Robitussin Dm) 10 ml PO TID [facility] Last Admin: 09/15/16 13:03 Dose: 10 ml Insulin Glargine (Lantus) 6 unit SC [facility] Last Admin: 09/14/16 22:22 Dose: Not Given Levothyroxine Sodium (Synthroid) 37.5 mcg PO DAILY@0630 [facility] Last Admin: 09/15/16 07:09 Dose: 37.5 mcg Metformin HCl (Glucophage) 1,000 mg PO BIDCC [facility] Last Admin: 09/15/16 08:53 Dose: 1,000 mg Pantoprazole Sodium (Protonix Ec Tab) 40 mg PO DAILY [facility] Last Admin: 09/15/16 09:43 Dose: 40 mg Quetiapine Fumarate (Seroquel) 100 mg PO HS [facility] Last Admin: 09/14/16 21:46 Dose: 100 mg Quetiapine Fumarate (Seroquel) 50 mg PO DAILY [facility] Last Admin: 09/15/16 09:42 Dose: 50 mg Rosuvastatin Calcium (Crestor) 5 mg PO HS [facility] Last Admin: 09/14/16 21:45 Dose: 5 mg Fluticasone/Salmeterol (Advair Diskus 250/50) 1 puff INH RQ12 [facility] Last Admin: 09/15/16 07:46 Dose: 1 puff Tamsulosin HCl (Flomax) 0.4 mg PO DAILY [facility] Last Admin: 09/15/16 09:42 Dose: 0.4 mg Tiotropium [place] (Spiriva) 18 mcg INH RQ24 [facility] Last Admin: 09/15/16 07:46 Dose: 18 mcg - Labs Labs: 09/15/16 08:04 09/15/16 08:04 - Constitutional Appears: Well - Head Exam Head Exam: ATRAUMATIC, NORMAL INSPECTION, NORMOCEPHALIC - Eye Exam Eye Exam: EOMI, Normal appearance, PERRL Pupil Exam: NORMAL ACCOMODATION, PERRL - ENT Exam ENT Exam: Mucous Membranes Moist, Normal Exam - Neck Exam Neck Exam: Full ROM, Normal Inspection. absent: Lymphadenopathy - Respiratory Exam Respiratory Exam: Decreased Breath Sounds - Cardiovascular Exam Cardiovascular Exam: REGULAR RHYTHM, +S1, +S2 - GI/Abdominal Exam GI & Abdominal Exam: Soft, Diminished Bowel Sounds - Rectal Exam Rectal Exam: Deferred Assessment and Plan (1) Abnormal CXR (chest x-ray) Status: Acute (2) COPD (chronic obstructive pulmonary disease) Status: Acute (3) COPD exacerbation Status: Acute (4) Cardiac disease Status: Acute (5) Depression Status: Acute (6) Diabetes Status: Acute - Assessment and Plan (Free Text) Plan: 1) L2 Compression Fracture Continue physical therapy as tolerated. Will continue out of bed to chair as tolerated Follow Ortho and neurosurgery recommendations: bed rest and physical therapy No neurosurgical intervention at this time Physical therapy as tolerated Continue Out of bed to chair Imaging: CT confirms acute appearing L2 compression fracture, no retropulsion seen per report. Ill defined soft tissue density seen, ? edema. Would recommend attempt MRI (unsure if patient will tolerate and cooperate) for further visualization. Neurosurgery Consulted, Dr. Rose. Lumbar XRAY 08/11: - 1. Age indeterminate acute superior endplate compression fracture in the L2 vertebral body with 4 mm retrolisthesis. 2. Mild multilevel degenerative disc disease, worse at L5-S1. see full report. 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 Will continue current psych medications per Dr. Bajwa's recommendations. No recent reported incidences of behavioral disturbances Continue seroquel 50 mg po QD and seroquel 100 mg po HS and depakote sprinkles 125 mg po BID per psych recs Haldol 2mg IM Q6 PRN, agitation Haldol 2mg PO Q6H PRN, moderate agitation Patient off Remeron since 07/31/16. Remeron recommended by psych. However, patient's mood stable. Will add as needed. Will discuss with Dr. Bajwa about how often the behavioral disturbances are occurring in order for further placement into care home 3) Depression No SI/HI. Monitor Psych Dr. Bajwa consulted, help appreciated. Management as above 4) Chest Pain Resolved. As per Dr. 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 ROMIs negative EKG with LBBB as prior EKGs have also shown Cardio consult - Dr. Marinelli - help appreciated ECHO - left ventricular is normal size. there is mild to moderate concentric left ventricular hypertrophy. the systolic function is midly to moderately impaired. septal hypokinesis. mild to moderate aortic regurgitation. mild pulmonary hypertension. (please see full report) 5) Nodular opacity in chest Pulm consult - Dr. Hayden - help appreciated Chest CT - extensive bilateral fine nodular interstitial infiltrate both lower lobes. dense pleural based consolidation right lower lobe. subpleural emphysema. mild centrilobular pulmonary emphysema. left upper lobe nodules. 7mm and 9mm. reccomend f/u noncontrast chest CT in 3 months. Multiple left upper lobe nodular calcifications, likely granulomatous. probable small airways disease posterior right upper lobe. findings are nonspecific and may reflect infection or inflammatory disease. Patient needs to f/u outpatient per Dr. Hayden for nodular opacity in chest + COPD. 6) COPD Pulm consult - Dr. Hayden - help appreciated Advair and Spiriva 7) DM RISS, accuchecks. Lantus 10U SC HS, Metformin 8) Hypothyroid Continue synthroid 37.5 mcg po qd. 9) Hx of cardiac disease Continue Eliquis, ASA, Crestor. 10) Prophylactic measure Protonix 40 mg PO daily Eliquis 2.5 mg Po BID Social work referral Labs ordered MWF PT recommends DAPHNEY Disposition Pending placement at [facility] per case management social worker
[2016-09-15] MEDS: (Lantus) Insulin Glargine, Recombinant SC SCH (22:06)
[2016-09-16] MEDS: Levothyroxine 75 MCG TAB PO SCH (06:15)
[2016-09-16] MEDS: Fluticasone-Salmeterol 250-50mcg Diskus INH SCH ×2 (07:37→19:18)
[2016-09-16] MEDS: Tiotropium 18 mcg Cap For Inhalation INH SCH (07:38)
[2016-09-16] MEDS: Pantoprazole 40 mg EC Tab PO SCH ×2 (09:41→11:22)
[2016-09-16] MEDS: Calcium Carbonate 500 mg Chewable Antacid Tab PO SCH ×3 (09:42→18:21)
--- NOTE | 2016-09-16 10:56 | CP.PCM.PN ---
Subjective - Date & Time of Evaluation Date of Evaluation: 09/16/16 Time of Evaluation: 07:20 - Subjective Subjective: clinically same Objective - Vital Signs/Intake and Output Vital Signs (last 24 hours): Temp Pulse Resp BP Pulse Ox 98.5 F 59 L 20 105/62 99 09/16/16 09:41 09/16/16 09:41 09/16/16 09:41 09/16/16 09:41 09/16/16 09:41 Intake and Output: 09/16/16 09/16/16 06:59 18:59 Intake Total 120 Balance 120 - Medications Medications: Current Medications Acetaminophen (Tylenol 325mg Tab) 650 mg PO Q6 PRN PRN Reason: Pain, Mild (1-3) Last Admin: 09/10/16 14:22 Dose: 650 mg Aspirin (Aspirin Chewable) 81 mg PO DAILY [facility] Calcium Carbonate (Tums) 500 mg PO BID [facility] Divalproex Sodium (Depakote Sprinkles) 125 mg PO BID [facility] Insulin Glargine (Lantus) 6 unit SC [facility] Last Admin: 09/15/16 22:06 Dose: Not Given Levothyroxine Sodium (Synthroid) 37.5 mcg PO DAILY@0630 [facility] Last Admin: 09/16/16 06:15 Dose: 37.5 mcg Metformin HCl (Glucophage) 1,000 mg PO BIDCC [facility] Last Admin: 09/16/16 08:19 Dose: 1,000 mg Pantoprazole Sodium (Protonix Ec Tab) 40 mg PO DAILY [facility] Quetiapine Fumarate (Seroquel) 100 mg PO [facility] Last Admin: 09/15/16 21:33 Dose: 100 mg Rosuvastatin Calcium (Crestor) 5 mg PO [facility] Last Admin: 09/15/16 21:33 Dose: 5 mg Fluticasone/Salmeterol (Advair Diskus 250/50) 1 puff INH RQ12 [facility] Last Admin: 09/16/16 07:37 Dose: 1 puff Tamsulosin HCl (Flomax) 0.4 mg PO DAILY [facility] Tiotropium [place] (Spiriva) 18 mcg INH RQ24 [facility] Last Admin: 09/16/16 07:38 Dose: 18 mcg - Labs Labs: 09/15/16 08:04 09/15/16 08:04 - Constitutional Appears: Well - Head Exam Head Exam: ATRAUMATIC, NORMAL INSPECTION, NORMOCEPHALIC - Eye Exam Eye Exam: EOMI, Normal appearance, PERRL Pupil Exam: NORMAL ACCOMODATION, PERRL - ENT Exam ENT Exam: Mucous Membranes Moist, Normal Exam - Neck Exam Neck Exam: Full ROM, Normal Inspection. absent: Lymphadenopathy - Respiratory Exam Respiratory Exam: Decreased Breath Sounds - Cardiovascular Exam Cardiovascular Exam: REGULAR RHYTHM, +S1, +S2 - GI/Abdominal Exam GI & Abdominal Exam: Soft, Diminished Bowel Sounds - Rectal Exam Rectal Exam: Deferred Assessment and Plan (1) Abnormal CXR (chest x-ray) Status: Acute (2) COPD (chronic obstructive pulmonary disease) Status: Acute (3) COPD exacerbation Status: Acute (4) Cardiac disease Status: Acute (5) Depression Status: Acute (6) Diabetes Status: Acute - Assessment and Plan (Free Text) Plan: ntinue physical therapy as tolerated Will continue out of bed to chair as tolerated Follow Ortho and neurosurgery recommendations: bed rest and physical therapy No neurosurgical intervention at this time Physical therapy as tolerated Continue Out of bed to chair Imaging: CT confirms acute appearing L2 compression fracture, no retropulsion seen per report. Ill defined soft tissue density seen, ? edema. Would recommend attempt MRI (unsure if patient will tolerate and cooperate) for further visualization. Neurosurgery Consulted, Dr. Rose. Lumbar XRAY 08/11: - 1. Age indeterminate acute superior endplate compression fracture in the L2 vertebral body with 4 mm retrolisthesis. 2. Mild multilevel degenerative disc disease, worse at L5-S1. see full report. 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 Will continue current psych medications per Dr. Bajwa's recommendations. No recent reported incidences of behavioral disturbances Continue seroquel 50 mg po QD and seroquel 100 mg po HS and depakote sprinkles 125 mg po BID per psych recs Haldol 2mg IM Q6 PRN, agitation Haldol 2mg PO Q6H PRN, moderate agitation Patient off Remeron since 07/31/16. Remeron recommended by psych. However, patient's mood stable. Will add as needed. Will discuss with Dr. Bajwa about how often the behavioral disturbances are occurring in order for further placement into halfway 3) Depression No SI/HI. Monitor Psych Dr. Bajwa consulted, help appreciated. Management as above 4) Chest Pain Resolved. As per Dr. Marinelli, likely secondary to [employer] as per consult 07/23/16. ROMIs negative EKG with LBBB as prior EKGs have also shown Cardio consult - Dr. Marinelli - help appreciated ECHO - left ventricular is normal size. there is mild to moderate concentric left ventricular hypertrophy. the systolic function is midly to moderately impaired. septal hypokinesis. mild to moderate aortic regurgitation. mild pulmonary hypertension. (please see full report) 5) Nodular opacity in chest Pulm consult - Dr. Hayden - help appreciated Chest CT - extensive bilateral fine nodular interstitial infiltrate both lower lobes. dense pleural based consolidation right lower lobe. subpleural emphysema. mild centrilobular pulmonary emphysema. left upper lobe nodules. 7mm and 9mm. reccomend f/u noncontrast chest CT in 3 months. Multiple left upper lobe nodular calcifications, likely granulomatous. probable small airways disease posterior right upper lobe. findings are nonspecific and may reflect infection or inflammatory disease.
[2016-09-16] MEDS: Divalproex 125 mg Sprinkle Capsule PO SCH ×3 (11:21→18:09)
[2016-09-16] MEDS: guaiFENesin 100 mg/5 ml Syrup UD PO PRN (11:23)
[2016-09-16] MEDS: guaiFENesin DM 200 mg-20 mg/10 ml UD PO SCH (11:25)
--- NOTE | 2016-09-16 12:30 | CP.PCM.PN ---
<Harris Sim - Last Filed: 09/16/16 19:58> Subjective - Date & Time of Evaluation Date of Evaluation: 09/16/16 Time of Evaluation: 09:30 - Subjective Subjective: Hospitalist resident progress note for Dr. Solis Patient seen and examined at bedside. No acute events overnight. Patient continues to behave well. Patient has no current complaints. He denies headache , fever, chills, shortness of breath, chest pain, nausea, vomiting, or diarrhea. 12 point ROS are negative except for the above mentioned. Objective - Vital Signs/Intake and Output Vital Signs (last 24 hours): Temp Pulse Resp BP Pulse Ox 98.5 F 59 L 20 105/62 99 09/16/16 09:41 09/16/16 09:41 09/16/16 09:41 09/16/16 09:41 09/16/16 09:41 Intake and Output: 09/16/16 09/16/16 06:59 18:59 Intake Total 120 Balance 120 - Medications Medications: Current Medications Acetaminophen (Tylenol 325mg Tab) 650 mg PO Q6 PRN PRN Reason: Pain, Mild (1-3) Last Admin: 09/10/16 14:22 Dose: 650 mg Aspirin (Aspirin Chewable) 81 mg PO DAILY [facility] Last Admin: 09/16/16 11:21 Dose: Not Given Calcium Carbonate (Tums) 500 mg PO BID [facility] Last Admin: 09/16/16 11:22 Dose: Not Given Divalproex Sodium (Depakote Sprinkles) 125 mg PO BID [facility] Last Admin: 09/16/16 11:24 Dose: 125 mg Guaifenesin (Robitussin) 100 mg PO Q4H PRN PRN Reason: Cough Insulin Glargine (Lantus) 6 unit SC HS [facility] Last Admin: 09/15/16 22:06 Dose: Not Given Levothyroxine Sodium (Synthroid) 37.5 mcg PO DAILY@0630 [facility] Last Admin: 09/16/16 06:15 Dose: 37.5 mcg [facility] Last Admin: 09/16/16 08:19 Dose: 1,000 mg Pantoprazole Sodium (Protonix Ec Tab) 40 mg PO DAILY [facility] Last Admin: 09/16/16 11:22 Dose: Not Given Quetiapine Fumarate (Seroquel) 100 mg PO [facility] Last Admin: 09/15/16 21:33 Dose: 100 mg Quetiapine Fumarate (Seroquel) 50 mg PO DAILY [facility] Last Admin: 09/16/16 11:24 Dose: 50 mg Rosuvastatin Calcium (Crestor) 5 mg PO HS [facility] Last Admin: 09/15/16 21:33 Dose: 5 mg Fluticasone/Salmeterol (Advair Diskus 250/50) 1 puff INH RQ12 [facility] Last Admin: 09/16/16 07:37 Dose: 1 puff Tamsulosin HCl (Flomax) 0.4 mg PO DAILY [facility] Last Admin: 09/16/16 11:21 Dose: Not Given Tiotropium [place] (Spiriva) 18 mcg INH RQ24 [facility] Last Admin: 09/16/16 07:38 Dose: 18 mcg - Labs Labs: 09/15/16 08:04 09/15/16 08:04 - Constitutional Appears: Non-toxic, No Acute Distress, Chronically Ill - Head Exam Head Exam: ATRAUMATIC, NORMAL INSPECTION, NORMOCEPHALIC - Eye Exam Eye Exam: Normal appearance Pupil Exam: NORMAL ACCOMODATION, PERRL - ENT Exam ENT Exam: Mucous Membranes Moist - Neck Exam Neck Exam: Normal Inspection - Respiratory Exam Respiratory Exam: Clear to Ausculation Bilateral, NORMAL BREATHING PATTERN. absent: Wheezes, Respiratory Distress - Cardiovascular Exam Cardiovascular Exam: REGULAR RHYTHM, +S1, +S2. absent: Murmur - GI/Abdominal Exam GI & Abdominal Exam: Soft, Normal Bowel Sounds. absent: Tenderness - Extremities Exam Extremities Exam: absent: Pedal Edema - Neurological Exam Neurological Exam: Alert, Awake, Oriented x3 - Psychiatric Exam Psychiatric exam: Normal Affect, Normal Mood - Skin Skin Exam: Dry, Normal Color, Warm Assessment and Plan - Assessment and Plan (Free Text) Assessment: 1) L2 Compression Fracture Continue physical therapy as tolerated Will continue out of bed to chair as tolerated Follow Ortho and neurosurgery recommendations: bed rest and physical therapy No neurosurgical intervention at this time Physical therapy as tolerated Continue Out of bed to chair Imaging: CT confirms acute appearing L2 compression fracture, no retropulsion seen per report. Ill defined soft tissue density seen, ? edema. Would recommend attempt MRI (unsure if patient will tolerate and cooperate) for further visualization. * Neurosurgery Consulted, Dr. Rose. Lumbar XRAY 08/11: - 1. Age indeterminate acute superior endplate compression fracture in the L2 vertebral body with 4 mm retrolisthesis. 2. Mild multilevel degenerative disc disease, worse at L5-S1. see full report. 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 Will continue current psych medications per Dr. Bajwa's recommendations. No recent reported incidences of behavioral disturbances Continue seroquel 50 mg po QD and seroquel 100 mg po HS and depakote sprinkles 125 mg po BID per psych recs Haldol 2mg IM Q6 PRN, agitation Haldol 2mg PO Q6H PRN, moderate agitation Patient off Remeron since 07/31/16. Remeron recommended by psych. However, patient's mood stable. Will add as needed. Will discuss with Dr. Bajwa about how often the behavioral disturbances are occurring in order for further placement into [facility] 3) Depression No SI/HI. Monitor Psych Dr. Bajwa consulted, help appreciated. Management as above 4) Chest Pain Resolved. As per Dr. Marinelli, likely secondary to [employer] as per consult 07/23/16. ROMIs negative EKG with LBBB as prior EKGs have also shown Cardio consult - Dr. Marinelli - help appreciated ECHO - left ventricular is normal size. there is mild to moderate concentric left ventricular hypertrophy. the systolic function is midly to moderately impaired. septal hypokinesis. mild to moderate aortic regurgitation. mild pulmonary hypertension. (please see full report) 5) Nodular opacity in chest Pulm consult - Dr. Hayden - help appreciated Chest CT - extensive bilateral fine nodular interstitial infiltrate both lower lobes. dense pleural based consolidation right lower lobe. subpleural emphysema. mild centrilobular pulmonary emphysema. left upper lobe nodules. 7mm and 9mm. reccomend f/u noncontrast chest CT in 3 months. Multiple left upper lobe nodular calcifications, likely granulomatous. probable small airways disease posterior right upper lobe. findings are nonspecific and may reflect infection or inflammatory disease. Patient needs to f/u outpatient per Dr. Hayden for nodular opacity in chest + COPD. 6) COPD Pulm consult - Dr. Hayden - help appreciated Advair and Spiriva 7) DM RISS, accuchecks. Lantus 10U SC HS, Metformin 8) Hypothyroid Continue synthroid 37.5 mcg po qd. 9) Hx of cardiac disease Continue Eliquis, ASA, Crestor. 10) Prophylactic measure Protonix 40 mg PO daily Eliquis 2.5 mg Po BID Social work referral Labs ordered [facility] PT recommends [facility] Disposition Pending placement at [facility] per rn case manager hospice Case discussed with attending Dr. Solis <Perla Solis - Last Filed: 09/16/16 20:29> Objective - Vital Signs/Intake and Output Vital Signs (last 24 hours): Temp Pulse Resp BP Pulse Ox 98.7 F 68 20 112/58 L 95 09/16/16 15:00 09/16/16 15:00 09/16/16 15:00 09/16/16 15:00 09/16/16 15:00 Intake and Output: 09/16/16 09/17/16 18:59 06:59 Intake Total 350 Balance 350 - Medications Medications: Current Medications Acetaminophen (Tylenol 325mg Tab) 650 mg PO Q6 PRN PRN Reason: Pain, Mild (1-3) Last Admin: 09/10/16 14:22 Dose: 650 mg Aspirin (Aspirin Chewable) 81 mg PO DAILY [facility] Last Admin: 09/16/16 11:21 Dose: Not Given Calcium Carbonate (Tums) 500 mg PO BID [facility] Last Admin: 09/16/16 18:21 Dose: 500 mg Divalproex Sodium (Depakote Sprinkles) 125 mg PO BID [facility] Last Admin: 09/16/16 18:09 Dose: 125 mg Guaifenesin (Robitussin) 100 mg PO Q4H PRN PRN Reason: Cough Insulin Glargine (Lantus) 6 unit SC [facility] Last Admin: 09/15/16 22:06 Dose: Not Given Levothyroxine Sodium (Synthroid) 37.5 mcg PO DAILY@0630 [facility] Last Admin: 09/16/16 06:15 Dose: 37.5 mcg [facility] Last Admin: 09/16/16 17:50 Dose: 1,000 mg Pantoprazole Sodium (Protonix Ec Tab) 40 mg PO DAILY [facility] Last Admin: 09/16/16 11:22 Dose: Not Given Quetiapine Fumarate (Seroquel) 100 mg PO [facility] Last Admin: 09/15/16 21:33 Dose: 100 mg Quetiapine Fumarate (Seroquel) 50 mg PO DAILY [facility] Last Admin: 09/16/16 11:24 Dose: 50 mg Rosuvastatin Calcium (Crestor) 5 mg PO HS [facility] Last Admin: 09/15/16 21:33 Dose: 5 mg Fluticasone/Salmeterol (Advair Diskus 250/50) 1 puff INH RQ12 [facility] Last Admin: 09/16/16 19:18 Dose: Not Given Tamsulosin HCl (Flomax) 0.4 mg PO DAILY [facility] Last Admin: 09/16/16 11:21 Dose: Not Given Tiotropium [place] (Spiriva) 18 mcg INH RQ24 [facility] Last Admin: 09/16/16 07:38 Dose: 18 mcg - Labs Labs: 09/15/16 08:04 09/15/16 08:04 Assessment and Plan (1) Abnormal CXR (chest x-ray) Status: Acute (2) COPD (chronic obstructive pulmonary disease) Status: Acute (3) COPD exacerbation Status: Acute (4) Cardiac disease Status: Acute (5) Depression Status: Acute (6) Diabetes Status: Acute Attending/Attestation - Attestation I have personally seen and examined this patient.: Yes I have fully participated in the care of the patient.: Yes I have reviewed all pertinent clinical information, including history, physical exam and plan: Yes Notes (Text): 09/16/16 20:29 Awaiting for the placement continue same patient is more stable no behavioral disturbances discussed with the social studies teacher and rn case manager hospice
[2016-09-16] MEDS: (Lantus) Insulin Glargine, Recombinant SC SCH (22:15)
[2016-09-17] MEDS: Levothyroxine 75 MCG TAB PO SCH (06:18)
[2016-09-17] MEDS: Fluticasone-Salmeterol 250-50mcg Diskus INH SCH (07:23)
[2016-09-17] MEDS: Tiotropium 18 mcg Cap For Inhalation INH SCH (07:24)
[2016-09-17] MEDS: Pantoprazole 40 mg EC Tab PO SCH (11:13)
[2016-09-17] MEDS: Divalproex 125 mg Sprinkle Capsule PO SCH ×2 (11:32→18:04)
[2016-09-17] MEDS: Calcium Carbonate 500 mg Chewable Antacid Tab PO SCH ×2 (11:34→18:05)
--- NOTE | 2016-09-17 15:14 | CP.PCM.PN ---
Subjective - Date & Time of Evaluation Date of Evaluation: 09/17/16 Time of Evaluation: 07:00 - Subjective Subjective: clinically same Objective - Vital Signs/Intake and Output Vital Signs (last 24 hours): Temp Pulse Resp BP Pulse Ox 98.1 F 63 20 115/74 96 09/16/16 23:42 09/17/16 08:36 09/17/16 08:36 09/17/16 08:36 09/17/16 08:36 Intake and Output: 09/17/16 09/17/16 06:59 18:59 Intake Total 350 120 Balance 350 120 - Medications Medications: Current Medications Acetaminophen (Tylenol 325mg Tab) 650 mg PO Q6 PRN PRN Reason: Pain, Mild (1-3) Last Admin: 09/10/16 14:22 Dose: 650 mg Aspirin (Aspirin Chewable) 81 mg PO DAILY [facility] Last Admin: 09/17/16 11:13 Dose: 81 mg Calcium Carbonate (Tums) 500 mg PO BID [facility] Last Admin: 09/17/16 11:34 Dose: 500 mg Divalproex Sodium (Depakote Sprinkles) 125 mg PO BID [facility] Last Admin: 09/17/16 11:32 Dose: 125 mg Guaifenesin (Robitussin) 100 mg PO Q4H PRN PRN Reason: Cough Insulin Glargine (Lantus) 6 unit SC [facility] Last Admin: 09/16/16 22:15 Dose: Not Given Levothyroxine Sodium (Synthroid) 37.5 mcg PO DAILY@0630 [facility] Last Admin: 09/17/16 06:18 Dose: 37.5 mcg [facility]) [facility] Last Admin: 09/17/16 08:05 Dose: 1,000 mg Pantoprazole Sodium (Protonix Ec Tab) 40 mg PO DAILY [facility] Last Admin: 09/17/16 11:13 Dose: 40 mg Quetiapine Fumarate (Seroquel) 100 mg PO [facility] Last Admin: 09/16/16 21:44 Dose: 100 mg Quetiapine Fumarate (Seroquel) 50 mg PO DAILY [facility] Last Admin: 09/17/16 11:32 Dose: 50 mg Rosuvastatin Calcium (Crestor) 5 mg PO [facility] Last Admin: 09/16/16 21:44 Dose: 5 mg Fluticasone/Salmeterol (Advair Diskus 250/50) 1 puff INH RQ12 [facility] Last Admin: 09/17/16 07:23 Dose: 1 puff Tamsulosin HCl (Flomax) 0.4 mg PO DAILY [facility] Last Admin: 09/17/16 11:13 Dose: 0.4 mg Tiotropium [place] (Spiriva) 18 mcg INH RQ24 [facility] Last Admin: 09/17/16 07:24 Dose: 18 mcg - Labs Labs: 09/15/16 08:04 09/15/16 08:04 - Constitutional Appears: Well - Head Exam Head Exam: ATRAUMATIC, NORMAL INSPECTION, NORMOCEPHALIC - Eye Exam Eye Exam: EOMI, Normal appearance, PERRL Pupil Exam: NORMAL ACCOMODATION, PERRL - ENT Exam ENT Exam: Mucous Membranes Moist, Normal Exam - Neck Exam Neck Exam: Full ROM, Normal Inspection. absent: Lymphadenopathy - Respiratory Exam Respiratory Exam: Decreased Breath Sounds - Cardiovascular Exam Cardiovascular Exam: REGULAR RHYTHM, +S1, +S2 - GI/Abdominal Exam GI & Abdominal Exam: Soft, Diminished Bowel Sounds - Rectal Exam Rectal Exam: Deferred Assessment and Plan (1) Abnormal CXR (chest x-ray) Status: Acute (2) COPD (chronic obstructive pulmonary disease) Status: Acute (3) COPD exacerbation Status: Acute (4) Cardiac disease Status: Acute (5) Depression Status: Acute (6) Diabetes Status: Acute - Assessment and Plan (Free Text) Plan: Continue same Patient comfortable No acute event Tolerating diet Pain meds Seroquel Statins Continue aspirin Continue Haldol Accu-Cheks Metformin Physical therapy Dr. Bajwa
--- NOTE | 2016-09-17 19:36 | CP.PCM.PN ---
Subjective - Date & Time of Evaluation Date of Evaluation: 09/17/16 Time of Evaluation: 12:00 - Subjective Subjective: Medicine note for Dr. Solis's Service Pt seen and examined at bedside. Clinically unchanged. No acute events reported as per nursing staff. Pt denies any acute symptoms including f,c,cp,sob,n,v,d,c. Objective - Vital Signs/Intake and Output Vital Signs (last 24 hours): Temp Pulse Resp BP Pulse Ox 97.5 F L 60 20 97/61 L 98 09/17/16 16:00 09/17/16 16:00 09/17/16 16:00 09/17/16 16:00 09/17/16 16:00 Intake and Output: 09/17/16 09/18/16 18:59 06:59 Intake Total 120 Balance 120 - Medications Medications: Current Medications Acetaminophen (Tylenol 325mg Tab) 650 mg PO Q6 PRN PRN Reason: Pain, Mild (1-3) Last Admin: 09/10/16 14:22 Dose: 650 mg Aspirin (Aspirin Chewable) 81 mg PO DAILY [facility] Last Admin: 09/17/16 11:13 Dose: 81 mg Calcium Carbonate (Tums) 500 mg PO BID [facility] Last Admin: 09/17/16 18:05 Dose: 500 mg Divalproex Sodium (Depakote Sprinkles) 125 mg PO BID [facility] Last Admin: 09/17/16 18:04 Dose: 125 mg Guaifenesin (Robitussin) 100 mg PO Q4H PRN PRN Reason: Cough Insulin Glargine (Lantus) 6 unit SC [facility] Last Admin: 09/16/16 22:15 Dose: Not Given Levothyroxine Sodium (Synthroid) 37.5 mcg PO DAILY@0630 [facility] Last Admin: 09/17/16 06:18 Dose: 37.5 mcg Metformin HCl (Glucophage) 1,000 mg PO BIDCC [facility] Last Admin: 09/17/16 18:04 Dose: 1,000 mg Pantoprazole Sodium (Protonix Ec Tab) 40 mg PO DAILY [facility] Last Admin: 09/17/16 11:13 Dose: 40 mg Quetiapine Fumarate (Seroquel) 100 mg PO HS [facility] Last Admin: 09/16/16 21:44 Dose: 100 mg Quetiapine Fumarate (Seroquel) 50 mg PO DAILY [facility] Last Admin: 09/17/16 11:32 Dose: 50 mg Rosuvastatin Calcium (Crestor) 5 mg PO HS [facility] Last Admin: 09/16/16 21:44 Dose: 5 mg Fluticasone/Salmeterol (Advair Diskus 250/50) 1 puff INH RQ12 [facility] Last Admin: 09/17/16 07:23 Dose: 1 puff Tamsulosin HCl (Flomax) 0.4 mg PO DAILY [facility] Last Admin: 09/17/16 11:13 Dose: 0.4 mg Tiotropium [place] (Spiriva) 18 mcg INH RQ24 [facility] Last Admin: 09/17/16 07:24 Dose: 18 mcg - Labs Labs: 09/15/16 08:04 09/15/16 08:04 - Constitutional Appears: No Acute Distress - Head Exam Head Exam: ATRAUMATIC, NORMAL INSPECTION - Eye Exam Eye Exam: Normal appearance - ENT Exam ENT Exam: Mucous Membranes Moist - Respiratory Exam Respiratory Exam: Clear to Ausculation Bilateral - Cardiovascular Exam Cardiovascular Exam: REGULAR RHYTHM - GI/Abdominal Exam GI & Abdominal Exam: Soft. absent: Tenderness - Extremities Exam Extremities Exam: absent: Pedal Edema - Neurological Exam Neurological Exam: Alert, Awake Assessment and Plan - Assessment and Plan (Free Text) Plan: 1) L2 Compression Fracture Continue physical therapy as tolerated Will continue out of bed to chair as tolerated Follow Ortho and neurosurgery recommendations: bed rest and physical therapy No neurosurgical intervention at this time Physical therapy as tolerated Continue Out of bed to chair Imaging: CT confirms acute appearing L2 compression fracture, no retropulsion seen per report. Ill defined soft tissue density seen, ? edema. Would recommend attempt MRI (unsure if patient will tolerate and cooperate) for further visualization. * Neurosurgery Consulted, Dr. Rose. Lumbar XRAY 08/11: - 1. Age indeterminate acute superior endplate compression fracture in the L2 vertebral body with 4 mm retrolisthesis. 2. Mild multilevel degenerative disc disease, worse at L5-S1. see full report. 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 Will continue current psych medications per Dr. Bajwa's recommendations. No recent reported incidences of behavioral disturbances Continue seroquel 50 mg po QD and seroquel 100 mg po HS and depakote sprinkles 125 mg po BID per psych recs Patient off Remeron since 07/31/16. Remeron recommended by psych. However, patient's mood stable. Will add as needed. Will discuss with Dr. Bajwa about how often the behavioral disturbances are occurring in order for further placement into longterm 3) Depression No SI/HI. Monitor Psych Dr. Bajwa consulted, help appreciated. Management as above 4) Chest Pain Resolved. As per Dr. 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 ROMIs negative EKG with LBBB as prior EKGs have also shown Cardio consult - Dr. Marinelli - help appreciated ECHO - left ventricular is normal size. there is mild to moderate concentric left ventricular hypertrophy. the systolic function is midly to moderately impaired. septal hypokinesis. mild to moderate aortic regurgitation. mild pulmonary hypertension. (please see full report) 5) Nodular opacity in chest Pulm consult - Dr. Hayden - help appreciated Chest CT - extensive bilateral fine nodular interstitial infiltrate both lower lobes. dense pleural based consolidation right lower lobe. subpleural emphysema. mild centrilobular pulmonary emphysema. left upper lobe nodules. 7mm and 9mm. reccomend f/u noncontrast chest CT in 3 months. Multiple left upper lobe nodular calcifications, likely granulomatous. probable small airways disease posterior right upper lobe. findings are nonspecific and may reflect infection or inflammatory disease. Patient needs to f/u outpatient per Dr. Hayden for nodular opacity in chest + COPD. 6) COPD Pulm consult - Dr. Hayden - help appreciated Advair and Spiriva 7) DM RISS, accuchecks. Lantus 6U SC HS, Metformin 8) Hypothyroid Continue synthroid 37.5 mcg po qd. 9) Hx of cardiac disease Continue Eliquis, ASA, Crestor. 10) Prophylactic measure Protonix 40 mg PO daily Eliquis 2.5 mg Po BID Social work referral Labs ordered MWF PT recommends DAPHNEY 11) BPH Continue with Flomax Disposition Discharge to rehab facility pending authorization availability. Case discussed with attending Dr. Solis
[2016-09-17] MEDS: (Lantus) Insulin Glargine, Recombinant SC SCH (21:39)
[2016-09-18] MEDS: Levothyroxine 75 MCG TAB PO SCH (06:00)
[2016-09-18 07:52] LABS: BASO % 0.6 % (0.0-2.0); EOS # 0.2 K/uL (0.0-0.7); EOS % 2.3 % (0.0-4.0); LYMPH # 1.7 K/uL (1.0-4.3); LYMPH % 19.8 % (20.0-40.0); MEAN CELL VOLUME 85.7 fL (80.0-94.0); MEAN CORPUSCULAR HEMOGLOBIN 28.1 pg (27.0-31.0); MEAN CORPUSCULAR HGB CONC 32.7 g/dL (33.0-37.0); MEAN PLATELET VOLUME 8.5 fL (7.2-11.7); MONO # 0.8 K/uL (0.0-0.8); MONO % 9.4 % (0.0-10.0); RED CELL DISTRIBUTION WIDTH 17.4 % (11.5-14.5); WHITE BLOOD COUNT 8.3 K/uL (4.8-10.8)
[2016-09-18 07:54] LABS: CHLORIDE 99 mmol/L (98-107); SODIUM 137 mmol/L (132-148)
[2016-09-18 07:56] LABS: GFR AFRICAN-AMERICAN > 60
[2016-09-18 07:57] LABS: ALKALINE PHOSPHATASE 36 U/L (38-126); ALT/SGPT 21 U/L (21-72); AST/SGOT 13 U/L (17-59); BILIRUBIN,TOTAL 0.3 mg/dL (0.2-1.3); BLOOD UREA NITROGEN 21 mg/dL (9-20); CALCIUM 8.3 mg/dl (8.6-10.4); CARBON DIOXIDE 29 mmol/L (22-30); GLUCOSE,RANDOM 96 mg/dL (75-110); TOTAL PROTEIN 5.3 g/dL (6.3-8.3)
[2016-09-18] MEDS: Tiotropium 18 mcg Cap For Inhalation INH SCH (07:58)
[2016-09-18] MEDS: Fluticasone-Salmeterol 250-50mcg Diskus INH SCH ×2 (07:59→19:43)
[2016-09-18] MEDS: Divalproex 125 mg Sprinkle Capsule PO SCH ×2 (09:46→17:16)
[2016-09-18] MEDS: Calcium Carbonate 500 mg Chewable Antacid Tab PO SCH ×2 (09:47→17:16)
[2016-09-18] MEDS: Pantoprazole 40 mg EC Tab PO SCH (09:48)
--- NOTE | 2016-09-18 15:08 | CP.PCM.PN ---
Subjective - Date & Time of Evaluation Date of Evaluation: 09/18/16 Time of Evaluation: 10:20 - Subjective Subjective: PGY-2 Resident Progress Note for Dr. Solis Patient seen and examined at bedside. No acute events overnight. Patient resting in bed comfortably. Clinically unchanged. Patient denies fever, chills, shortness, chest pain, nausea or vomiting. Objective - Vital Signs/Intake and Output Vital Signs (last 24 hours): Temp Pulse Resp BP Pulse Ox 97.5 F L 60 20 97/61 L 98 09/17/16 16:00 09/17/16 16:00 09/17/16 16:00 09/17/16 16:00 09/17/16 16:00 Intake and Output: 09/18/16 09/18/16 06:59 18:59 Intake Total 500 240 Balance 500 240 - Medications Medications: Current Medications Acetaminophen (Tylenol 325mg Tab) 650 mg PO Q6 PRN PRN Reason: Pain, Mild (1-3) Last Admin: 09/10/16 14:22 Dose: 650 mg Aspirin (Aspirin Chewable) 81 mg PO DAILY [facility] Last Admin: 09/18/16 09:46 Dose: 81 mg Calcium Carbonate (Tums) 500 mg PO BID [facility] Last Admin: 09/18/16 09:47 Dose: 500 mg Divalproex Sodium (Depakote Sprinkles) 125 mg PO BID [facility] Last Admin: 09/18/16 09:46 Dose: 125 mg Guaifenesin (Robitussin) 100 mg PO Q4H PRN PRN Reason: Cough Insulin Glargine (Lantus) 6 unit SC [facility] Last Admin: 09/17/16 21:39 Dose: Not Given Levothyroxine Sodium (Synthroid) 37.5 mcg PO DAILY@0630 [facility] Last Admin: 09/18/16 06:00 Dose: 37.5 mcg Metformin HCl (Glucophage) 1,000 mg PO BIDCC [facility] Last Admin: 09/18/16 08:49 Dose: 1,000 mg Pantoprazole Sodium (Protonix Ec Tab) 40 mg PO DAILY [facility] Last Admin: 09/18/16 09:48 Dose: 40 mg Quetiapine Fumarate (Seroquel) 100 mg PO HS [facility] Last Admin: 09/17/16 21:39 Dose: 100 mg Quetiapine Fumarate (Seroquel) 50 mg PO DAILY [facility] Last Admin: 09/18/16 09:48 Dose: 50 mg Rosuvastatin Calcium (Crestor) 5 mg PO HS [facility] Last Admin: 09/17/16 21:39 Dose: 5 mg Fluticasone/Salmeterol (Advair Diskus 250/50) 1 puff INH RQ12 [facility] Last Admin: 09/18/16 07:59 Dose: 1 puff Tamsulosin HCl (Flomax) 0.4 mg PO DAILY [facility] Last Admin: 09/18/16 09:48 Dose: 0.4 mg Tiotropium [place] (Spiriva) 18 mcg INH RQ24 [facility] Last Admin: 09/18/16 07:58 Dose: 18 mcg - Labs Labs: 09/18/16 07:15 09/18/16 07:15 - Constitutional Appears: No Acute Distress - Head Exam Head Exam: ATRAUMATIC, NORMAL INSPECTION - Eye Exam Eye Exam: Normal appearance - ENT Exam ENT Exam: Mucous Membranes Moist - Neck Exam Neck Exam: Normal Inspection - Respiratory Exam Respiratory Exam: Clear to Ausculation Bilateral. absent: Respiratory Distress - Cardiovascular Exam Cardiovascular Exam: REGULAR RHYTHM, +S1, +S2. absent: Murmur - GI/Abdominal Exam GI & Abdominal Exam: Soft. absent: Tenderness - Neurological Exam Neurological Exam: Alert, Awake - Skin Skin Exam: Normal Color, Warm Assessment and Plan - Assessment and Plan (Free Text) Assessment: 1) L2 Compression Fracture Continue physical therapy as tolerated Will continue out of bed to chair as tolerated Follow Ortho and neurosurgery recommendations: bed rest and physical therapy No neurosurgical intervention at this time Physical therapy as tolerated Continue Out of bed to chair Imaging: CT confirms acute appearing L2 compression fracture, no retropulsion seen per report. Ill defined soft tissue density seen, ? edema. Would recommend attempt MRI (unsure if patient will tolerate and cooperate) for further visualization. * Neurosurgery Consulted, Dr. Rose. Lumbar XRAY 08/11: - 1. Age indeterminate acute superior endplate compression fracture in the L2 vertebral body with 4 mm retrolisthesis. 2. Mild multilevel degenerative disc disease, worse at L5-S1. see full report. 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 Will continue current psych medications per Dr. Bajwa's recommendations. No recent reported incidences of behavioral disturbances Continue seroquel 50 mg po QD and seroquel 100 mg po HS and depakote sprinkles 125 mg po BID per psych recs Patient off Remeron since 07/31/16. Remeron recommended by psych. However, patient's mood stable. Will add as needed. Will discuss with Dr. Bajwa about how often the behavioral disturbances are occurring in [facility] for [facility] 3) Depression No SI/HI. Monitor Psych Dr. Bajwa consulted, help appreciated. Management as above 4) Chest Pain Resolved. As per Dr. 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 ROMIs negative EKG with LBBB as prior EKGs have also shown Cardio consult - Dr. Marinelli - help appreciated ECHO - left ventricular is normal size. there is mild to moderate concentric left ventricular hypertrophy. the systolic function is midly to moderately impaired. septal hypokinesis. mild to moderate aortic regurgitation. mild pulmonary hypertension. (please see full report) 5) Nodular opacity in chest Pulm consult - Dr. Hayden - help appreciated Chest CT - extensive bilateral fine nodular interstitial infiltrate both lower lobes. dense pleural based consolidation right lower lobe. subpleural emphysema. mild centrilobular pulmonary emphysema. left upper lobe nodules. 7mm and 9mm. reccomend f/u noncontrast chest CT in 3 months. Multiple left upper lobe nodular calcifications, likely granulomatous. probable small airways disease posterior right upper lobe. findings are nonspecific and may reflect infection or inflammatory disease. Patient needs to f/u outpatient per Dr. Hayden for nodular opacity in chest + COPD. 6) COPD Pulm consult - Dr. Hayden - help appreciated Advair and Spiriva 7) DM RISS, accuchecks. Lantus 6U SC HS, Metformin 8) Hypothyroid Continue synthroid 37.5 mcg po qd. 9) Hx of cardiac disease Continue Eliquis, ASA, Crestor. 10) Prophylactic measure Protonix 40 mg PO daily Eliquis 2.5 mg Po BID Social work referral Labs ordered MWF PT recommends DAPHNEY 11) BPH Continue with Flomax Disposition Discharge to rehab facility, pending authorization and availability from [facility] Case discussed with attending Dr. Solis
--- NOTE | 2016-09-18 16:25 | CP.PCM.PN ---
Subjective - Date & Time of Evaluation Date of Evaluation: 09/18/16 Time of Evaluation: 07:00 - Subjective Subjective: Clinical same Objective - Vital Signs/Intake and Output Vital Signs (last 24 hours): Temp Pulse Resp BP Pulse Ox 98 F 85 20 111/60 96 09/18/16 10:00 09/18/16 10:00 09/18/16 10:00 09/18/16 10:00 09/18/16 10:00 Intake and Output: 09/18/16 09/18/16 06:59 18:59 Intake Total 500 240 Balance 500 240 - Medications Medications: Current Medications Acetaminophen (Tylenol 325mg Tab) 650 mg PO Q6 PRN PRN Reason: Pain, Mild (1-3) Last Admin: 09/10/16 14:22 Dose: 650 mg Aspirin (Aspirin Chewable) 81 mg PO DAILY [facility] Last Admin: 09/18/16 09:46 Dose: 81 mg Calcium Carbonate (Tums) 500 mg PO BID [facility] Last Admin: 09/18/16 09:47 Dose: 500 mg Divalproex Sodium (Depakote Sprinkles) 125 mg PO BID [facility] Last Admin: 09/18/16 09:46 Dose: 125 mg Guaifenesin (Robitussin) 100 mg PO Q4H PRN PRN Reason: Cough Insulin Glargine (Lantus) 6 unit SC [facility] Last Admin: 09/17/16 21:39 Dose: Not Given Levothyroxine Sodium (Synthroid) 37.5 mcg PO DAILY@0630 [facility] Last Admin: 09/18/16 06:00 Dose: 37.5 mcg [facility] Last Admin: 09/18/16 08:49 Dose: 1,000 mg Pantoprazole Sodium (Protonix Ec Tab) 40 mg PO DAILY [facility] Last Admin: 09/18/16 09:48 Dose: 40 mg Quetiapine Fumarate (Seroquel) 100 mg PO [facility] Last Admin: 09/17/16 21:39 Dose: 100 mg Quetiapine Fumarate (Seroquel) 50 mg PO DAILY [facility] Last Admin: 09/18/16 09:48 Dose: 50 mg Rosuvastatin Calcium (Crestor) 5 mg PO [facility] Last Admin: 09/17/16 21:39 Dose: 5 mg Fluticasone/Salmeterol (Advair Diskus 250/50) 1 puff INH RQ12 [facility] Last Admin: 09/18/16 07:59 Dose: 1 puff Tamsulosin HCl (Flomax) 0.4 mg PO DAILY [facility] Last Admin: 09/18/16 09:48 Dose: 0.4 mg Tiotropium [place] (Spiriva) 18 mcg INH RQ24 [facility] Last Admin: 09/18/16 07:58 Dose: 18 mcg - Labs Labs: 09/18/16 07:15 09/18/16 07:15 - Constitutional Appears: Well - Head Exam Head Exam: ATRAUMATIC, NORMAL INSPECTION, NORMOCEPHALIC - Eye Exam Eye Exam: EOMI, Normal appearance, PERRL Pupil Exam: NORMAL ACCOMODATION, PERRL - ENT Exam ENT Exam: Mucous Membranes Moist, Normal Exam - Neck Exam Neck Exam: Full ROM, Normal Inspection. absent: Lymphadenopathy - Respiratory Exam Respiratory Exam: Decreased Breath Sounds - Cardiovascular Exam Cardiovascular Exam: REGULAR RHYTHM, +S1, +S2 - GI/Abdominal Exam GI & Abdominal Exam: Soft, Diminished Bowel Sounds - Rectal Exam Rectal Exam: Deferred Assessment and Plan (1) Abnormal CXR (chest x-ray) Status: Acute (2) COPD (chronic obstructive pulmonary disease) Status: Acute (3) COPD exacerbation Status: Acute (4) Cardiac disease Status: Acute (5) Depression Status: Acute (6) Diabetes Status: Acute - Assessment and Plan (Free Text) Plan: No acute event Pain meds Seroquel Statins Continue aspirin Continue Haldol Accu-Cheks Metformin Physical therapy Dr. Garett [facility]
[2016-09-18] MEDS: (Lantus) Insulin Glargine, Recombinant SC SCH (21:47)
[2016-09-19] MEDS: Levothyroxine 75 MCG TAB PO SCH (06:35)
[2016-09-19] MEDS: Tiotropium 18 mcg Cap For Inhalation INH SCH (07:09)
[2016-09-19] MEDS: Fluticasone-Salmeterol 250-50mcg Diskus INH SCH ×2 (07:09→19:33)
[2016-09-19] MEDS: Pantoprazole 40 mg EC Tab PO SCH (09:04)
[2016-09-19] MEDS: Divalproex 125 mg Sprinkle Capsule PO SCH ×2 (09:04→17:36)
[2016-09-19] MEDS: Calcium Carbonate 500 mg Chewable Antacid Tab PO SCH ×2 (09:05→17:37)
--- NOTE | 2016-09-19 12:26 | CP.PCM.PN ---
Subjective - Date & Time of Evaluation Date of Evaluation: 09/19/16 Time of Evaluation: 07:00 - Subjective Subjective: clinically same Objective - Vital Signs/Intake and Output Vital Signs (last 24 hours): Temp Pulse Resp BP Pulse Ox 97.4 F L 63 20 100/57 L 95 09/19/16 08:52 09/19/16 08:52 09/19/16 08:52 09/19/16 08:52 09/19/16 08:52 Intake and Output: 09/19/16 09/19/16 06:59 18:59 Intake Total 300 Balance 300 - Medications Medications: Current Medications Acetaminophen (Tylenol 325mg Tab) 650 mg PO Q6 PRN PRN Reason: Pain, Mild (1-3) Last Admin: 09/10/16 14:22 Dose: 650 mg Aspirin (Aspirin Chewable) 81 mg PO DAILY [facility] Last Admin: 09/19/16 09:04 Dose: 81 mg Calcium Carbonate (Tums) 500 mg PO BID [facility] Last Admin: 09/19/16 09:05 Dose: 500 mg Divalproex Sodium (Depakote Sprinkles) 125 mg PO BID [facility] Last Admin: 09/19/16 09:04 Dose: 125 mg Guaifenesin (Robitussin) 100 mg PO Q4H PRN PRN Reason: Cough Insulin Glargine (Lantus) 6 unit SC [facility] Last Admin: 09/18/16 21:47 Dose: Not Given Levothyroxine Sodium (Synthroid) 37.5 mcg PO DAILY@0630 [facility] Last Admin: 09/19/16 06:35 Dose: 37.5 mcg Metformin HCl (Glucophage) 1,000 mg PO BIDCC [facility] Last Admin: 09/19/16 08:21 Dose: 1,000 mg Pantoprazole Sodium (Protonix Ec Tab) 40 mg PO DAILY [facility] Last Admin: 09/19/16 09:04 Dose: 40 mg Quetiapine Fumarate (Seroquel) 100 mg PO [facility] Last Admin: 09/18/16 21:50 Dose: 100 mg Quetiapine Fumarate (Seroquel) 50 mg PO DAILY [facility] Last Admin: 09/19/16 09:04 Dose: 50 mg Rosuvastatin Calcium (Crestor) 5 mg PO [facility] Last Admin: 09/18/16 21:50 Dose: 5 mg Fluticasone/Salmeterol (Advair Diskus 250/50) 1 puff INH RQ12 [facility] Last Admin: 09/19/16 07:09 Dose: Not Given Tamsulosin HCl (Flomax) 0.4 mg PO DAILY [facility] Last Admin: 09/19/16 09:04 Dose: 0.4 mg Tiotropium [place] (Spiriva) 18 mcg INH RQ24 [facility] Last Admin: 09/19/16 07:09 Dose: Not Given - Labs Labs: 09/18/16 07:15 09/18/16 07:15 - Constitutional Appears: Well - Head Exam Head Exam: ATRAUMATIC, NORMAL INSPECTION, NORMOCEPHALIC - Eye Exam Eye Exam: EOMI, Normal appearance, PERRL Pupil Exam: NORMAL ACCOMODATION, PERRL - ENT Exam ENT Exam: Mucous Membranes Moist, Normal Exam - Neck Exam Neck Exam: Full ROM, Normal Inspection. absent: Lymphadenopathy - Respiratory Exam Respiratory Exam: Decreased Breath Sounds - Cardiovascular Exam Cardiovascular Exam: REGULAR RHYTHM, +S1, +S2 - GI/Abdominal Exam GI & Abdominal Exam: Soft, Diminished Bowel Sounds - Rectal Exam Rectal Exam: Deferred Assessment and Plan (1) Abnormal CXR (chest x-ray) Status: Acute (2) COPD (chronic obstructive pulmonary disease) Status: Acute (3) COPD exacerbation Status: Acute (4) Cardiac disease Status: Acute (5) Depression Status: Acute (6) Diabetes Status: Acute - Assessment and Plan (Free Text) Plan: No acute event Tolerating diet Pain meds Seroquel Statins Continue aspirin flomax depakote Accu-Cheks Metformin Physical therapy Dr. Bajwa
[2016-09-19] MEDS: (Lantus) Insulin Glargine, Recombinant SC SCH ×2 (21:41→21:47)
[2016-09-19] MEDS ORDERED: Tramadol 25 mg PO PRN (22:00)
[2016-09-20] MEDS: Levothyroxine 75 MCG TAB PO SCH (06:29)
[2016-09-20] MEDS: Fluticasone-Salmeterol 250-50mcg Diskus INH SCH ×2 (07:13→19:33)
[2016-09-20] MEDS: Tiotropium 18 mcg Cap For Inhalation INH SCH (07:13)
[2016-09-20] MEDS: Pantoprazole 40 mg EC Tab PO SCH (09:00)
[2016-09-20] MEDS: Divalproex 125 mg Sprinkle Capsule PO SCH ×2 (09:00→17:52)
[2016-09-20] MEDS: Calcium Carbonate 500 mg Chewable Antacid Tab PO SCH ×2 (09:01→17:54)
[2016-09-20] MEDS: (Lantus) Insulin Glargine, Recombinant SC SCH (21:38)
--- NOTE | 2016-09-20 21:52 | CP.PCM.PN ---
Subjective - Date & Time of Evaluation Date of Evaluation: 09/20/16 Time of Evaluation: 08:00 - Subjective Subjective: clinically same Objective - Vital Signs/Intake and Output Vital Signs (last 24 hours): Temp Pulse Resp BP Pulse Ox 98.4 F 78 20 117/67 95 09/20/16 16:53 09/20/16 16:53 09/20/16 16:53 09/20/16 16:53 09/20/16 16:53 Intake and Output: 09/20/16 09/21/16 18:59 06:59 Intake Total 500 Balance 500 - Medications Medications: Current Medications Acetaminophen (Tylenol 325mg Tab) 650 mg PO Q6 PRN PRN Reason: Pain, Mild (1-3) Last Admin: 09/10/16 14:22 Dose: 650 mg Aspirin (Aspirin Chewable) 81 mg PO DAILY [facility] Last Admin: 09/20/16 09:00 Dose: 81 mg Calcium Carbonate (Tums) 500 mg PO BID [facility] Last Admin: 09/20/16 17:54 Dose: 500 mg Divalproex Sodium (Depakote Sprinkles) 125 mg PO BID [facility] Last Admin: 09/20/16 17:52 Dose: 125 mg Guaifenesin (Robitussin) 100 mg PO Q4H PRN PRN Reason: Cough Insulin Glargine (Lantus) 6 unit SC [facility] Last Admin: 09/20/16 21:38 Dose: Not Given Levothyroxine Sodium (Synthroid) 37.5 mcg PO DAILY@0630 [facility] Last Admin: 09/20/16 06:29 Dose: 37.5 mcg [facility] Last Admin: 09/20/16 17:52 Dose: 1,000 mg Pantoprazole Sodium (Protonix Ec Tab) 40 mg PO DAILY [facility] Last Admin: 09/20/16 09:00 Dose: 40 mg Quetiapine Fumarate (Seroquel) 100 mg PO [facility] Last Admin: 09/20/16 21:40 Dose: 100 mg Quetiapine Fumarate (Seroquel) 50 mg PO DAILY [facility] Last Admin: 09/20/16 09:00 Dose: 50 mg Rosuvastatin Calcium (Crestor) 5 mg PO [facility] Last Admin: 09/20/16 21:37 Dose: 5 mg Fluticasone/Salmeterol (Advair Diskus 250/50) 1 puff INH RQ12 [facility] Last Admin: 09/20/16 19:33 Dose: 1 puff Tamsulosin HCl (Flomax) 0.4 mg PO DAILY [facility] Last Admin: 09/20/16 09:00 Dose: 0.4 mg Tiotropium [place] (Spiriva) 18 mcg INH RQ24 [facility] Last Admin: 09/20/16 07:13 Dose: Not Given Tramadol HCl (Ultram) 25 mg PO Q6 PRN PRN Reason: mod - severe pain (4-10) Last Admin: 09/19/16 22:23 Dose: 25 mg - Labs Labs: 09/18/16 07:15 09/18/16 07:15 - Constitutional Appears: Well - Head Exam Head Exam: ATRAUMATIC, NORMAL INSPECTION, NORMOCEPHALIC - Eye Exam Eye Exam: Conjunctival injection Pupil Exam: NORMAL ACCOMODATION, PERRL - ENT Exam ENT Exam: Mucous Membranes Moist, Normal Exam - Neck Exam Neck Exam: Full ROM, Normal Inspection. absent: Lymphadenopathy - Respiratory Exam Respiratory Exam: Decreased Breath Sounds - Cardiovascular Exam Cardiovascular Exam: REGULAR RHYTHM, +S1, +S2. absent: Murmur - GI/Abdominal Exam GI & Abdominal Exam: Soft, Diminished Bowel Sounds - Rectal Exam Rectal Exam: Deferred Assessment and Plan (1) Abnormal CXR (chest x-ray) Status: Acute (2) COPD (chronic obstructive pulmonary disease) Status: Acute (3) COPD exacerbation Status: Acute (4) Cardiac disease Status: Acute (5) Compression fracture of L2 Status: Acute (6) Depression Status: Acute (7) Diabetes Status: Acute - Assessment and Plan (Free Text) Plan: patient comfortable No acute event Tolerating diet Seroquel Statins Continue aspirin flomax depakote Accu-Cheks Metformin Physical therapy Dr. Bajwa
[2016-09-21] MEDS: Levothyroxine 75 MCG TAB PO SCH (05:30)
[2016-09-21] MEDS: Tiotropium 18 mcg Cap For Inhalation INH SCH (07:18)
[2016-09-21] MEDS: Fluticasone-Salmeterol 250-50mcg Diskus INH SCH ×2 (07:18→19:21)
[2016-09-21] MEDS: Divalproex 125 mg Sprinkle Capsule PO SCH ×2 (09:12→18:27)
[2016-09-21] MEDS: Pantoprazole 40 mg EC Tab PO SCH (09:12)
[2016-09-21] MEDS: Calcium Carbonate 500 mg Chewable Antacid Tab PO SCH ×2 (09:13→18:30)
[2016-09-21 11:28] LABS: BASO # 0.1 K/uL (0.0-0.2); BASO % 0.7 % (0.0-2.0); EOS # 0.1 K/uL (0.0-0.7); EOS % 1.3 % (0.0-4.0); HEMATOCRIT 30.6 % (35.0-51.0); LYMPH # 1.4 K/uL (1.0-4.3); LYMPH % 18.2 % (20.0-40.0); MEAN CELL VOLUME 86.4 fL (80.0-94.0); MEAN CORPUSCULAR HEMOGLOBIN 27.8 pg (27.0-31.0); MEAN CORPUSCULAR HGB CONC 32.2 g/dL (33.0-37.0); MEAN PLATELET VOLUME 8.3 fL (7.2-11.7); MONO # 0.6 K/uL (0.0-0.8); MONO % 8.1 % (0.0-10.0); WHITE BLOOD COUNT 7.9 K/uL (4.8-10.8)
[2016-09-21 11:39] LABS: CHLORIDE 99 mmol/L (98-107); SODIUM 137 mmol/L (132-148)
[2016-09-21 11:42] LABS: ALB/GLOB RATIO 1.1 (1.0-2.1); ALKALINE PHOSPHATASE 39 U/L (38-126); ALT/SGPT 24 U/L (21-72); AST/SGOT 11 U/L (17-59); BILIRUBIN,TOTAL 0.3 mg/dL (0.2-1.3); BLOOD UREA NITROGEN 35 mg/dL (9-20); CARBON DIOXIDE 28 mmol/L (22-30); GFR AFRICAN-AMERICAN > 60; GLUCOSE,RANDOM 145 mg/dL (75-110); TOTAL PROTEIN 5.5 g/dL (6.3-8.3)
[2016-09-21 11:43] LABS: CALCIUM 8.4 mg/dl (8.6-10.4); MAGNESIUM 1.5 mg/dL (1.6-2.3); PHOSPHOROUS 3.3 mg/dL (2.5-4.5)
--- NOTE | 2016-09-21 14:00 | CP.PCM.PN ---
Subjective - Date & Time of Evaluation Date of Evaluation: 09/21/16 Time of Evaluation: 07:30 - Subjective Subjective: PGY-2 Resident Progress Note for Dr. Solis Patient seen and examined at bedside. No acute events overnight. Patient resting in bed comfortably. Clinically unchanged. Patient denies fever, chills, shortness, chest pain, nausea or vomiting. Patient's friend is at bedside requesting to talk to Dr. Solis about his friends condition. Objective - Vital Signs/Intake and Output Vital Signs (last 24 hours): Temp Pulse Resp BP Pulse Ox 97 F L 77 20 103/62 96 09/21/16 07:15 09/21/16 07:15 09/21/16 07:15 09/21/16 07:15 09/21/16 07:15 Intake and Output: 09/21/16 09/21/16 06:59 18:59 Intake Total 690 Balance 690 - Medications Medications: Current Medications Acetaminophen (Tylenol 325mg Tab) 650 mg PO Q6 PRN PRN Reason: Pain, Mild (1-3) Last Admin: 09/10/16 14:22 Dose: 650 mg Aspirin (Aspirin Chewable) 81 mg PO DAILY [facility] Last Admin: 09/21/16 09:12 Dose: 81 mg Calcium Carbonate (Tums) 500 mg PO BID [facility] Last Admin: 09/21/16 09:13 Dose: 500 mg Divalproex Sodium (Depakote Sprinkles) 125 mg PO BID [facility] Last Admin: 09/21/16 09:12 Dose: 125 mg Guaifenesin (Robitussin) 100 mg PO Q4H PRN PRN Reason: Cough Insulin Glargine (Lantus) 6 unit SC [facility] Last Admin: 09/20/16 21:38 Dose: Not Given Levothyroxine Sodium (Synthroid) 37.5 mcg PO DAILY@0630 [facility] Last Admin: 09/21/16 05:30 Dose: 37.5 mcg Met[facility] ([facility]) [facility] Last Admin: 09/21/16 09:12 Dose: 1,000 mg Pantoprazole Sodium (Protonix Ec Tab) 40 mg PO DAILY [facility] Last Admin: 09/21/16 09:12 Dose: 40 mg Quetiapine Fumarate (Seroquel) 100 mg PO [facility] Last Admin: 09/20/16 21:40 Dose: 100 mg Quetiapine Fumarate (Seroquel) 50 mg PO DAILY [facility] Last Admin: 09/21/16 09:12 Dose: 50 mg Rosuvastatin Calcium (Crestor) 5 mg PO HS [facility] Last Admin: 09/20/16 21:37 Dose: 5 mg Fluticasone/Salmeterol (Advair Diskus 250/50) 1 puff INH RQ12 [facility] Last Admin: 09/21/16 07:18 Dose: Not Given Tamsulosin HCl (Flomax) 0.4 mg PO DAILY [facility] Last Admin: 09/21/16 09:12 Dose: 0.4 mg Tiotropium [place] (Spiriva) 18 mcg INH RQ24 [facility] Last Admin: 09/21/16 07:18 Dose: Not Given Tramadol HCl (Ultram) 25 mg PO Q6 PRN PRN Reason: mod - severe pain (4-10) Last Admin: 09/19/16 22:23 Dose: 25 mg - Labs Labs: 09/21/16 11:21 09/21/16 11:21 - Constitutional Appears: Non-toxic, No Acute Distress, Cachectic - Head Exam Head Exam: ATRAUMATIC, NORMAL INSPECTION - Eye Exam Eye Exam: Normal appearance, PERRL Pupil Exam: NORMAL ACCOMODATION - ENT Exam ENT Exam: Mucous Membranes Moist - Respiratory Exam Respiratory Exam: Clear to Ausculation Bilateral, NORMAL BREATHING PATTERN. absent: Respiratory Distress - Cardiovascular Exam Cardiovascular Exam: REGULAR RHYTHM, +S1, +S2 - GI/Abdominal Exam GI & Abdominal Exam: Soft, Normal Bowel Sounds. absent: Distended, Firm, Tenderness - Back Exam Back Exam: NORMAL INSPECTION - Neurological Exam Neurological Exam: Alert, Awake - Psychiatric Exam Psychiatric exam: Normal Affect, Normal Mood - Skin Skin Exam: Dry, Normal Color, Warm Assessment and Plan - Assessment and Plan (Free Text) Assessment: 1) L2 Compression Fracture Continue physical therapy as tolerated Will continue out of bed to chair as tolerated Follow Ortho and neurosurgery recommendations: bed rest and physical therapy No neurosurgical intervention at this time Physical therapy as tolerated Continue Out of bed to chair Imaging: CT confirms acute appearing L2 compression fracture, no retropulsion seen per report. Ill defined soft tissue density seen, ? edema. Would recommend attempt MRI (unsure if patient will tolerate and cooperate) for further visualization. * Neurosurgery Consulted, Dr. Rose. Lumbar XRAY 08/11: - 1. Age indeterminate acute superior endplate compression fracture in the L2 vertebral body with 4 mm retrolisthesis. 2. Mild multilevel degenerative disc disease, worse at L5-S1. see full report. 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 Will continue current psych medications per Dr. Bajwa's recommendations. No recent reported incidences of behavioral disturbances Continue seroquel 50 mg po QD and seroquel 100 mg po HS and depakote sprinkles 125 mg po BID per psych recs Patient off Remeron since 07/31/16. Remeron recommended by psych. However, patient's mood stable. Will add as needed. Will discuss with Dr. Bajwa about how often the behavioral disturbances are occurring in order for further placement into longterm 3) Depression No SI/HI. Monitor Psych Dr. Bajwa consulted, help appreciated. Management as above 4) Chest Pain Resolved. As per Dr. 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 ROMIs negative EKG with LBBB as prior EKGs have also shown Cardio consult - Dr. Marinelli - help appreciated ECHO - left ventricular is normal size. there is mild to moderate concentric left ventricular hypertrophy. the systolic function is midly to moderately impaired. septal hypokinesis. mild to moderate aortic regurgitation. mild pulmonary hypertension. (please see full report) 5) Nodular opacity in chest Pulm consult - Dr. Hayden - help appreciated Chest CT - extensive bilateral fine nodular interstitial infiltrate both lower lobes. dense pleural based consolidation right lower lobe. subpleural emphysema. mild centrilobular pulmonary emphysema. left upper lobe nodules. 7mm and 9mm. reccomend f/u noncontrast chest CT in 3 months. Multiple left upper lobe nodular calcifications, likely granulomatous. probable small airways disease posterior right upper lobe. findings are nonspecific and may reflect infection or inflammatory disease. Patient needs to f/u outpatient per Dr. Hayden for nodular opacity in chest + COPD. 6) COPD Pulm consult - Dr. Hayden - help appreciated Advair and Spiriva 7) DM RISS, accuchecks. Lantus 6U SC HS, Metformin 8) Hypothyroid Continue synthroid 37.5 mcg po qd. 9) Hx of cardiac disease Continue Eliquis, ASA, Crestor. 10) Prophylactic measure Protonix 40 mg PO daily Eliquis 2.5 mg Po BID Social work referral Labs ordered MWF PT recommends DAPHNEY 11) BPH Continue with Flomax Disposition Discharge to rehab facility, pending authorization and acceptance. Case discussed with attending Dr. Solis
--- NOTE | 2016-09-21 17:16 | CP.PCM.PN ---
Subjective - Date & Time of Evaluation Date of Evaluation: 09/21/16 Time of Evaluation: 07:00 - Subjective Subjective: clinically same Objective - Vital Signs/Intake and Output Vital Signs (last 24 hours): Temp Pulse Resp BP Pulse Ox 98.3 F 73 20 108/59 L 94 L 09/21/16 15:00 09/21/16 15:00 09/21/16 15:00 09/21/16 15:00 09/21/16 15:00 Intake and Output: 09/21/16 09/21/16 06:59 18:59 Intake Total 690 400 Balance 690 400 - Medications Medications: Current Medications Acetaminophen (Tylenol 325mg Tab) 650 mg PO Q6 PRN PRN Reason: Pain, Mild (1-3) Last Admin: 09/10/16 14:22 Dose: 650 mg Aspirin (Aspirin Chewable) 81 mg PO DAILY [facility] Last Admin: 09/21/16 09:12 Dose: 81 mg Calcium Carbonate (Tums) 500 mg PO BID [facility] Last Admin: 09/21/16 09:13 Dose: 500 mg Divalproex Sodium (Depakote Sprinkles) 125 mg PO BID [facility] Last Admin: 09/21/16 09:12 Dose: 125 mg Guaifenesin (Robitussin) 100 mg PO Q4H PRN PRN Reason: Cough Insulin Glargine (Lantus) 6 unit SC [facility] Last Admin: 09/20/16 21:38 Dose: Not Given Levothyroxine Sodium (Synthroid) 37.5 mcg PO DAILY@0630 [facility] Last Admin: 09/21/16 05:30 Dose: 37.5 mcg [facility]formin [facility] ([facility]) [facility] Last Admin: 09/21/16 09:12 Dose: 1,000 mg Pantoprazole Sodium (Protonix Ec Tab) 40 mg PO DAILY [facility] Last Admin: 09/21/16 09:12 Dose: 40 mg Quetiapine Fumarate (Seroquel) 100 mg PO [facility] Last Admin: 09/20/16 21:40 Dose: 100 mg Quetiapine Fumarate (Seroquel) 50 mg PO DAILY [facility] Last Admin: 09/21/16 09:12 Dose: 50 mg Rosuvastatin Calcium (Crestor) 5 mg PO [facility] Last Admin: 09/20/16 21:37 Dose: 5 mg Fluticasone/Salmeterol (Advair Diskus 250/50) 1 puff INH RQ12 [facility] Last Admin: 09/21/16 07:18 Dose: Not Given Tamsulosin HCl (Flomax) 0.4 mg PO DAILY [facility] Last Admin: 09/21/16 09:12 Dose: 0.4 mg Tiotropium [place] (Spiriva) 18 mcg INH RQ24 [facility] Last Admin: 09/21/16 07:18 Dose: Not Given Tramadol HCl (Ultram) 25 mg PO Q6 PRN PRN Reason: mod - severe pain (4-10) Last Admin: 09/19/16 22:23 Dose: 25 mg - Labs Labs: 09/21/16 11:21 09/21/16 11:21 - Constitutional Appears: Well - Head Exam Head Exam: ATRAUMATIC, NORMAL INSPECTION, NORMOCEPHALIC - Eye Exam Eye Exam: EOMI, Normal appearance, PERRL Pupil Exam: NORMAL ACCOMODATION, PERRL - ENT Exam ENT Exam: Mucous Membranes Moist, Normal Exam - Neck Exam Neck Exam: Full ROM, Normal Inspection. absent: Lymphadenopathy - Respiratory Exam Respiratory Exam: Decreased Breath Sounds - Cardiovascular Exam Cardiovascular Exam: REGULAR RHYTHM, +S1, +S2 - GI/Abdominal Exam GI & Abdominal Exam: Soft, Diminished Bowel Sounds - Rectal Exam Rectal Exam: Deferred Assessment and Plan (1) Abnormal CXR (chest x-ray) Status: Acute (2) COPD (chronic obstructive pulmonary disease) Status: Acute (3) COPD exacerbation Status: Acute (4) Cardiac disease Status: Acute (5) Depression Status: Acute (6) Diabetes Status: Acute - Assessment and Plan (Free Text) Plan: pt clinically improving Tolerating diet Seroquel Statins Continue aspirin flomax depakote Accu-Cheks Metformin Physical therapy Dr. Bajwa
[2016-09-21] MEDS: (Lantus) Insulin Glargine, Recombinant SC SCH (21:16)
[2016-09-22] MEDS: Levothyroxine 75 MCG TAB PO SCH (06:08)
[2016-09-22] MEDS: Tiotropium 18 mcg Cap For Inhalation INH SCH (08:05)
[2016-09-22] MEDS: Fluticasone-Salmeterol 250-50mcg Diskus INH SCH ×2 (08:06→19:34)
[2016-09-22] MEDS: guaiFENesin 100 mg/5 ml Syrup UD PO PRN ×2 (10:01→17:55)
[2016-09-22] MEDS: Pantoprazole 40 mg EC Tab PO SCH (10:02)
[2016-09-22] MEDS: Divalproex 125 mg Sprinkle Capsule PO SCH ×2 (10:04→17:53)
[2016-09-22] MEDS: Calcium Carbonate 500 mg Chewable Antacid Tab PO SCH ×2 (10:13→17:53)
--- NOTE | 2016-09-22 12:38 | CP.PCM.PN ---
Subjective - Date & Time of Evaluation Date of Evaluation: 09/22/16 Time of Evaluation: 10:00 - Subjective Subjective: PGY-2 Resident Progress Note for Dr. Solis Patient seen and examined at bedside. No reported acute events overnight. Patient resting in bed comfortably with no current complaints. Clinically unchanged. Denies fever, chills, shortness, chest pain, nausea or vomiting. Objective - Vital Signs/Intake and Output Vital Signs (last 24 hours): Temp Pulse Resp BP Pulse Ox 98.1 F 65 20 101/60 96 09/22/16 08:24 09/22/16 08:24 09/22/16 08:24 09/22/16 08:24 09/22/16 08:24 Intake and Output: 09/22/16 09/22/16 06:59 18:59 Intake Total 240 Balance 240 - Medications Medications: Current Medications Acetaminophen (Tylenol 325mg Tab) 650 mg PO Q6 PRN PRN Reason: Pain, Mild (1-3) Last Admin: 09/10/16 14:22 Dose: 650 mg Aspirin (Aspirin Chewable) 81 mg PO DAILY [facility] Last Admin: 09/22/16 10:02 Dose: 81 mg Calcium Carbonate (Tums) 500 mg PO BID [facility] Last Admin: 09/22/16 10:13 Dose: 500 mg Divalproex Sodium (Depakote Sprinkles) 125 mg PO BID [facility] Last Admin: 09/22/16 10:04 Dose: 125 mg Guaifenesin (Robitussin) 100 mg PO Q4H PRN PRN Reason: Cough Last Admin: 09/22/16 10:01 Dose: 100 mg Insulin Glargine (Lantus) 6 unit SC [facility] Last Admin: 09/21/16 21:16 Dose: 6 units Levothyroxine Sodium (Synthroid) 37.5 mcg PO DAILY@0630 [facility] Last Admin: 09/22/16 06:08 Dose: 37.5 mcg [facility]formin [facility]) [facility] Last Admin: 09/22/16 08:31 Dose: 1,000 mg Pantoprazole Sodium (Protonix Ec Tab) 40 mg PO DAILY [facility] Last Admin: 09/22/16 10:02 Dose: 40 mg Quetiapine Fumarate (Seroquel) 100 mg PO [facility] Last Admin: 09/21/16 21:14 Dose: 100 mg Quetiapine Fumarate (Seroquel) 50 mg PO DAILY [facility] Last Admin: 09/22/16 10:02 Dose: 50 mg Rosuvastatin Calcium (Crestor) 5 mg PO HS [facility] Last Admin: 09/21/16 21:14 Dose: 5 mg Fluticasone/Salmeterol (Advair Diskus 250/50) 1 puff INH RQ12 [facility] Last Admin: 09/22/16 08:06 Dose: 1 puff Tamsulosin HCl (Flomax) 0.4 mg PO DAILY [facility] Last Admin: 09/22/16 10:02 Dose: 0.4 mg Tiotropium [place] (Spiriva) 18 mcg INH RQ24 [facility] Last Admin: 09/22/16 08:05 Dose: 18 mcg Tramadol HCl (Ultram) 25 mg PO Q6 PRN PRN Reason: mod - severe pain (4-10) Last Admin: 09/19/16 22:23 Dose: 25 mg - Labs Labs: 09/21/16 11:21 09/21/16 11:21 - Constitutional Appears: Non-toxic, No Acute Distress, Cachectic - Head Exam Head Exam: ATRAUMATIC, NORMAL INSPECTION - Eye Exam Eye Exam: PERRL - ENT Exam ENT Exam: Mucous Membranes Moist - Neck Exam Neck Exam: Normal Inspection - Respiratory Exam Respiratory Exam: Clear to Ausculation Bilateral, NORMAL BREATHING PATTERN. absent: Respiratory Distress - Cardiovascular Exam Cardiovascular Exam: REGULAR RHYTHM, +S1, +S2 - GI/Abdominal Exam GI & Abdominal Exam: Soft, Normal Bowel Sounds. absent: Tenderness - Neurological Exam Neurological Exam: Alert, Awake - Psychiatric Exam Psychiatric exam: Normal Affect, Normal Mood - Skin Skin Exam: Dry, Intact, Normal Color, Warm Assessment and Plan - Assessment and Plan (Free Text) Assessment: 1) L2 Compression Fracture Continue physical therapy as tolerated Will continue out of bed to chair as tolerated Follow Ortho and neurosurgery recommendations: bed rest and physical therapy No neurosurgical intervention at this time Physical therapy as tolerated Continue Out of bed to chair Imaging: CT confirms acute appearing L2 compression fracture, no retropulsion seen per report. Ill defined soft tissue density seen, ? edema. Would recommend attempt MRI (unsure if patient will tolerate and cooperate) for further visualization. * Neurosurgery Consulted, Dr. Rose. Lumbar XRAY 08/11: - 1. Age indeterminate acute superior endplate compression fracture in the L2 vertebral body with 4 mm retrolisthesis. 2. Mild multilevel degenerative disc disease, worse at L5-S1. see full report. 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 Will continue current psych medications per Dr. Bajwa's recommendations. No recent reported incidences of behavioral disturbances Continue seroquel 50 mg po QD and seroquel 100 mg po HS and depakote sprinkles 125 mg po BID per psych recs Patient off Remeron since 07/31/16. Remeron recommended by psych. However, patient's mood stable. Will add as needed. Will discuss with Dr. Bajwa about how often the behavioral disturbances are occurring in order for further placement into [facility] 3) Depression No SI/HI. Monitor Psych Dr. Bajwa consulted, help appreciated. Management as above 4) Chest Pain Resolved. As per Dr. 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 ROMIs negative EKG with LBBB as prior EKGs have also shown Cardio consult - Dr. Marinelli - help appreciated ECHO - left ventricular is normal size. there is mild to moderate concentric left ventricular hypertrophy. the systolic function is midly to moderately impaired. septal hypokinesis. mild to moderate aortic regurgitation. mild pulmonary hypertension. (please see full report) 5) Nodular opacity in chest Pulm consult - Dr. Hayden - help appreciated Chest CT - extensive bilateral fine nodular interstitial infiltrate both lower lobes. dense pleural based consolidation right lower lobe. subpleural emphysema. mild centrilobular pulmonary emphysema. left upper lobe nodules. 7mm and 9mm. reccomend f/u noncontrast chest CT in 3 months. Multiple left upper lobe nodular calcifications, likely granulomatous. probable small airways disease posterior right upper lobe. findings are nonspecific and may reflect infection or inflammatory disease. Patient needs to f/u outpatient per Dr. Hayden for nodular opacity in chest + COPD. 6) COPD Pulm consult - Dr. Hayden - help appreciated Advair and Spiriva 7) DM RISS, accuchecks. Lantus 6U SC HS, Metformin 8) Hypothyroid Continue synthroid 37.5 mcg po qd. 9) Hx of cardiac disease Continue Eliquis, ASA, Crestor. 10) Prophylactic measure Protonix 40 mg PO daily Eliquis 2.5 mg Po BID Social work referral Labs ordered MWF PT recommends DAPHNEY 11) BPH Continue with Flomax Disposition Discharge to rehab facility, pending authorization and acceptance. Need documentations of good behavior. Case discussed with attending Dr. Solis. All management per Dr. Solis.
--- NOTE | 2016-09-22 17:58 | CP.PCM.PN ---
Subjective - Date & Time of Evaluation Date of Evaluation: 09/22/16 Time of Evaluation: 07:00 - Subjective Subjective: clinically same Objective - Vital Signs/Intake and Output Vital Signs (last 24 hours): Temp Pulse Resp BP Pulse Ox 98.1 F 74 20 105/63 96 09/22/16 16:00 09/22/16 16:00 09/22/16 16:00 09/22/16 16:00 09/22/16 16:00 Intake and Output: 09/22/16 09/22/16 06:59 18:59 Intake Total 240 500 Balance 240 500 - Medications Medications: Current Medications Acetaminophen (Tylenol 325mg Tab) 650 mg PO Q6 PRN PRN Reason: Pain, Mild (1-3) Last Admin: 09/10/16 14:22 Dose: 650 mg Aspirin (Aspirin Chewable) 81 mg PO DAILY [facility] Last Admin: 09/22/16 10:02 Dose: 81 mg Calcium Carbonate (Tums) 500 mg PO BID [facility] Last Admin: 09/22/16 17:53 Dose: 500 mg Divalproex Sodium (Depakote Sprinkles) 125 mg PO BID [facility] Last Admin: 09/22/16 17:53 Dose: 125 mg Guaifenesin (Robitussin) 100 mg PO Q4H PRN PRN Reason: Cough Last Admin: 09/22/16 17:55 Dose: 100 mg Insulin Glargine (Lantus) 6 unit SC [facility] Last Admin: 09/21/16 21:16 Dose: 6 units Levothyroxine Sodium (Synthroid) 37.5 mcg PO DAILY@0630 [facility] Last Admin: 09/22/16 06:08 Dose: 37.5 mcg Metformin [facility] ([facility]) [facility] Last Admin: 09/22/16 16:40 Dose: 1,000 mg Pantoprazole Sodium (Protonix Ec Tab) 40 mg PO DAILY [facility] Last Admin: 09/22/16 10:02 Dose: 40 mg Quetiapine Fumarate (Seroquel) 100 mg PO [facility] Last Admin: 09/21/16 21:14 Dose: 100 mg Quetiapine Fumarate (Seroquel) 50 mg PO DAILY [facility] Last Admin: 09/22/16 10:02 Dose: 50 mg Rosuvastatin Calcium (Crestor) 5 mg PO [facility] Last Admin: 09/21/16 21:14 Dose: 5 mg Fluticasone/Salmeterol (Advair Diskus 250/50) 1 puff INH RQ12 [facility] Last Admin: 09/22/16 08:06 Dose: 1 puff Tamsulosin HCl (Flomax) 0.4 mg PO DAILY [facility] Last Admin: 09/22/16 10:02 Dose: 0.4 mg Tiotropium [place] (Spiriva) 18 mcg INH RQ24 [facility] Last Admin: 09/22/16 08:05 Dose: 18 mcg Tramadol HCl (Ultram) 25 mg PO Q6 PRN PRN Reason: mod - severe pain (4-10) Last Admin: 09/19/16 22:23 Dose: 25 mg - Labs Labs: 09/21/16 11:21 09/21/16 11:21 - Constitutional Appears: Well - Head Exam Head Exam: ATRAUMATIC, NORMAL INSPECTION, NORMOCEPHALIC - Eye Exam Eye Exam: EOMI, Normal appearance, PERRL Pupil Exam: NORMAL ACCOMODATION, PERRL - ENT Exam ENT Exam: Mucous Membranes Moist, Normal Exam - Neck Exam Neck Exam: Full ROM, Normal Inspection. absent: Lymphadenopathy - Respiratory Exam Respiratory Exam: Decreased Breath Sounds - Cardiovascular Exam Cardiovascular Exam: REGULAR RHYTHM, +S1, +S2 - GI/Abdominal Exam GI & Abdominal Exam: Soft, Diminished Bowel Sounds - Rectal Exam Rectal Exam: Deferred Assessment and Plan (1) Abnormal CXR (chest x-ray) Status: Acute (2) COPD (chronic obstructive pulmonary disease) Status: Acute (3) COPD exacerbation Status: Acute (4) Cardiac disease Status: Acute (5) Depression Status: Acute (6) Diabetes Status: Acute - Assessment and Plan (Free Text) Plan: patient comfortable No acute event jovi eliquis, crestor Tolerating diet Seroquel Statins Continue aspirin flomax depakote Accu-Cheks Metformin Physical therapy OOB
[2016-09-22] MEDS: (Lantus) Insulin Glargine, Recombinant SC SCH (21:28)
[2016-09-23] MEDS: Levothyroxine 75 MCG TAB PO SCH (06:24)
[2016-09-23] MEDS: Tiotropium 18 mcg Cap For Inhalation INH SCH (08:00)
[2016-09-23] MEDS: Fluticasone-Salmeterol 250-50mcg Diskus INH SCH ×2 (08:01→20:12)
--- NOTE | 2016-09-23 08:05 | CP.PCM.PN ---
<Tamra Call - Last Filed: 09/23/16 09:07> Subjective - Date & Time of Evaluation Date of Evaluation: 09/23/16 Time of Evaluation: 07:00 - Subjective Subjective: PGY-2 Resident Progress Note for Dr. Solis Patient seen and examined at bedside. No reported acute events overnight. Patient resting in bed comfortably with no current complaints. Clinically unchanged. Denies fever, chills, shortness, chest pain, nausea or vomiting. He states he is looking forward to working with physical therapy today. Objective - Vital Signs/Intake and Output Vital Signs (last 24 hours): Temp Pulse Resp BP Pulse Ox 98.4 F 78 20 111/54 L 98 09/23/16 07:27 09/23/16 07:27 09/23/16 07:27 09/23/16 07:27 09/23/16 07:27 Intake and Output: 09/23/16 09/23/16 06:59 18:59 Intake Total 240 Balance 240 - Medications Medications: Current Medications Acetaminophen (Tylenol 325mg Tab) 650 mg PO Q6 PRN PRN Reason: Pain, Mild (1-3) Last Admin: 09/10/16 14:22 Dose: 650 mg Aspirin (Aspirin Chewable) 81 mg PO DAILY [facility] Last Admin: 09/22/16 10:02 Dose: 81 mg Calcium Carbonate (Tums) 500 mg PO BID [facility] Last Admin: 09/22/16 17:53 Dose: 500 mg Divalproex Sodium (Depakote Sprinkles) 125 mg PO BID [facility] Last Admin: 09/22/16 17:53 Dose: 125 mg Guaifenesin (Robitussin) 100 mg PO Q4H PRN PRN Reason: Cough Last Admin: 09/22/16 17:55 Dose: 100 mg Insulin Glargine (Lantus) 6 unit SC HS [facility] Last Admin: 09/22/16 21:28 Dose: 6 units Levothyroxine Sodium (Synthroid) 37.5 mcg PO DAILY@0630 [facility] Last Admin: 09/23/16 06:24 Dose: 37.5 mcg Metformin HCl (Glucophage) 1,000 mg PO BIDCC [facility] Last Admin: 09/22/16 16:40 Dose: 1,000 mg Pantoprazole Sodium (Protonix Ec Tab) 40 mg PO DAILY [facility] Last Admin: 09/22/16 10:02 Dose: 40 mg Quetiapine Fumarate (Seroquel) 100 mg PO HS [facility] Last Admin: 09/22/16 21:27 Dose: 100 mg Quetiapine Fumarate (Seroquel) 50 mg PO DAILY [facility] Last Admin: 09/22/16 10:02 Dose: 50 mg Rosuvastatin Calcium (Crestor) 5 mg PO HS [facility] Last Admin: 09/22/16 21:27 Dose: 5 mg Fluticasone/Salmeterol (Advair Diskus 250/50) 1 puff INH RQ12 [facility] Last Admin: 09/23/16 08:01 Dose: 1 puff Tamsulosin HCl (Flomax) 0.4 mg PO DAILY [facility] Last Admin: 09/22/16 10:02 Dose: 0.4 mg Tiotropium [place] (Spiriva) 18 mcg INH RQ24 [facility] Last Admin: 09/23/16 08:00 Dose: 18 mcg Tramadol HCl (Ultram) 25 mg PO Q6 PRN PRN Reason: mod - severe pain (4-10) Last Admin: 09/19/16 22:23 Dose: 25 mg - Labs Labs: 09/21/16 11:21 09/21/16 11:21 - Constitutional Appears: Non-toxic, No Acute Distress, Chronically Ill - Head Exam Head Exam: NORMAL INSPECTION - Eye Exam Eye Exam: EOMI - ENT Exam ENT Exam: Mucous Membranes Moist - Respiratory Exam Respiratory Exam: Clear to Ausculation Bilateral, NORMAL BREATHING PATTERN. absent: Respiratory Distress - Cardiovascular Exam Cardiovascular Exam: REGULAR RHYTHM, +S1, +S2 - GI/Abdominal Exam GI & Abdominal Exam: Soft, Normal Bowel Sounds. absent: Distended, Firm, Guarding, Tenderness - Extremities Exam Extremities Exam: Normal Inspection. absent: Calf Tenderness - Back Exam Back Exam: NORMAL INSPECTION - Neurological Exam Neurological Exam: Alert, Awake - Psychiatric Exam Psychiatric exam: Normal Affect, Normal Mood - Skin Skin Exam: Dry, Intact, Normal Color, Warm Assessment and Plan - Assessment and Plan (Free Text) Assessment: 1) L2 Compression Fracture Continue physical therapy as tolerated Will continue out of bed to chair as tolerated Follow Ortho and neurosurgery recommendations: bed rest and physical therapy No neurosurgical intervention at this time Physical therapy as tolerated Continue Out of bed to chair Imaging: CT confirms acute appearing L2 compression fracture, no retropulsion seen per report. Ill defined soft tissue density seen, ? edema. Would recommend attempt MRI (unsure if patient will tolerate and cooperate) for further visualization. * Neurosurgery Consulted, Dr. Rose. Lumbar XRAY 08/11: - 1. Age indeterminate acute superior endplate compression fracture in the L2 vertebral body with 4 mm retrolisthesis. 2. Mild multilevel degenerative disc disease, worse at L5-S1. see full report. 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 Will continue current psych medications per Dr. Bajwa's recommendations. No recent reported incidences of behavioral disturbances Continue seroquel 50 mg po QD and seroquel 100 mg po HS and depakote sprinkles 125 mg po BID per psych recs Patient off Remeron since 07/31/16. Remeron recommended by psych. However, patient's mood stable. Will add as needed. Will discuss with Dr. Bajwa about how often the behavioral disturbances are occurring in order for further placement into snf 3) Depression No SI/HI. Monitor Psych Dr. Bajwa consulted, help appreciated. Management as above 4) Chest Pain Resolved. As per Dr. Marinelli, likely secondary to CHECK SERVICES CLERK as per consult 07/23/16. ROMIs negative EKG with LBBB as prior EKGs have also shown Cardio consult - Dr. Marinelli - help appreciated ECHO - left ventricular is normal size. there is mild to moderate concentric left ventricular hypertrophy. the systolic function is midly to moderately impaired. septal hypokinesis. mild to moderate aortic regurgitation. mild pulmonary hypertension. (please see full report) 5) Nodular opacity in chest Pulm consult - Dr. Hayden - help appreciated Chest CT - extensive bilateral fine nodular interstitial infiltrate both lower lobes. dense pleural based consolidation right lower lobe. subpleural emphysema. mild centrilobular pulmonary emphysema. left upper lobe nodules. 7mm and 9mm. reccomend f/u noncontrast chest CT in 3 months. Multiple left upper lobe nodular calcifications, likely granulomatous. probable small airways disease posterior right upper lobe. findings are nonspecific and may reflect infection or inflammatory disease. Patient needs to f/u outpatient per Dr. Hayden for nodular opacity in chest + COPD. 6) COPD Pulm consult - Dr. Hayden - help appreciated Advair and Spiriva 7) DM RISS, accuchecks. Lantus 6U SC HS, Metformin 8) Hypothyroid Continue synthroid 37.5 mcg po qd. 9) Hx of cardiac disease Continue Eliquis, ASA, Crestor. 10) Prophylactic measure Protonix 40 mg PO daily Eliquis 2.5 mg Po BID Social work referral Labs ordered MWF PT recommends [facility] 11) BPH Continue with Flomax Disposition Discharge to rehab facility, pending authorization and acceptance. Need documentations of good behavior. Case discussed with attending Dr. Solis. All management per Dr. Solis. <Perla Soils - Last Filed: 09/23/16 22:46> Objective - Vital Signs/Intake and Output Vital Signs (last 24 hours): Temp Pulse Resp BP Pulse Ox 98.4 F 74 20 92/47 L 95 09/23/16 15:45 09/23/16 15:45 09/23/16 15:45 09/23/16 15:45 09/23/16 15:45 Intake and Output: 09/23/16 09/24/16 18:59 06:59 Intake Total 500 Balance 500 - Medications Medications: Current Medications Acetaminophen (Tylenol 325mg Tab) 650 mg PO Q6 PRN PRN Reason: Pain, Mild (1-3) Last Admin: 09/10/16 14:22 Dose: 650 mg Apixaban (Eliquis) 2.5 mg PO BID [facility] Last Admin: 09/23/16 18:00 Dose: 2.5 mg Aspirin (Aspirin Chewable) 81 mg PO DAILY [facility] Last Admin: 09/23/16 09:32 Dose: 81 mg Calcium Carbonate (Tums) 500 mg PO BID [facility] Last Admin: 09/23/16 17:39 Dose: 500 mg Divalproex Sodium (Depakote Sprinkles) 125 mg PO BID [facility] Last Admin: 09/23/16 17:39 Dose: 125 mg Guaifenesin (Robitussin) 100 mg PO Q4H PRN PRN Reason: Cough Last Admin: 09/23/16 17:39 Dose: 100 mg Insulin Glargine (Lantus) 6 unit SC [facility] Last Admin: 09/23/16 21:26 Dose: 6 units Levothyroxine Sodium (Synthroid) 37.5 mcg PO DAILY@0630 [facility] Last Admin: 09/23/16 06:24 Dose: 37.5 mcg [facility] Last Admin: 09/23/16 17:21 Dose: 1,000 mg Pantoprazole Sodium (Protonix Ec Tab) 40 mg PO DAILY [facility] Last Admin: 09/23/16 09:32 Dose: 40 mg Quetiapine Fumarate (Seroquel) 100 mg PO [facility] Last Admin: 09/23/16 21:22 Dose: 100 mg Quetiapine Fumarate (Seroquel) 50 mg PO DAILY [facility] Last Admin: 09/23/16 09:32 Dose: 50 mg Rosuvastatin Calcium (Crestor) 5 mg PO [facility] Last Admin: 09/23/16 21:22 Dose: 5 mg Fluticasone/Salmeterol (Advair Diskus 250/50) 1 puff INH RQ12 [facility] Last Admin: 09/23/16 08:01 Dose: 1 puff Tamsulosin HCl (Flomax) 0.4 mg PO DAILY [facility] Last Admin: 09/23/16 09:32 Dose: 0.4 mg Tiotropium [place] (Spiriva) 18 mcg INH RQ24 [facility] Last Admin: 09/23/16 08:00 Dose: 18 mcg Tramadol HCl (Ultram) 25 mg PO Q6 PRN PRN Reason: mod - severe pain (4-10) Last Admin: 09/19/16 22:23 Dose: 25 mg - Labs Labs: 09/21/16 11:21 09/21/16 11:21 Assessment and Plan (1) Abnormal CXR (chest x-ray) Status: Acute (2) COPD (chronic obstructive pulmonary disease) Status: Acute (3) COPD exacerbation Status: Acute (4) Cardiac disease Status: Acute (5) Depression Status: Acute (6) Diabetes Status: Acute Attending/Attestation - Attestation I have personally seen and examined this patient.: Yes I have fully participated in the care of the patient.: Yes I have reviewed all pertinent clinical information, including history, physical exam and plan: Yes Notes (Text): 09/23/16 22:46 1) L2 Compression Fracture Continue physical therapy as tolerated Will continue out of bed to chair as tolerated Follow Ortho and neurosurgery recommendations: bed rest and physical therapy No neurosurgical intervention at this time Physical therapy as tolerated Continue Out of bed to chair Imaging: CT confirms acute appearing L2 compression fracture, no retropulsion seen per report. Ill defined soft tissue density seen, ? edema. Would recommend attempt MRI (unsure if patient will tolerate and cooperate) for further visualization. * Neurosurgery Consulted, Dr. Rose. Lumbar XRAY 08/11: - 1. Age indeterminate acute superior endplate compression fracture in the L2 vertebral body with 4 mm retrolisthesis. 2. Mild multilevel degenerative disc disease, worse at L5-S1. see full report. 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 Will continue current psych medications per Dr. Bajwa's recommendations. No recent reported incidences of behavioral disturbances Continue seroquel 50 mg po QD and seroquel 100 mg po HS and depakote sprinkles 125 mg po BID per psych recs Patient off Remeron since 07/31/16. Remeron recommended by psych. However, patient's mood stable. Will add as needed. Will discuss with Dr. Bajwa about how often the behavioral disturbances are occurring in order for further placement into snf 3) Depression No SI/HI. Monitor Psych Dr. Bajwa consulted, help appreciated. Management as above 4) Chest Pain Resolved. As per Dr. Marinelli, likely secondary to CHECK SERVICES CLERK as per consult 07/23/16. ROMIs negativ
[2016-09-23] MEDS: Pantoprazole 40 mg EC Tab PO SCH (09:32)
[2016-09-23] MEDS: Divalproex 125 mg Sprinkle Capsule PO SCH ×2 (09:33→17:39)
[2016-09-23] MEDS: Calcium Carbonate 500 mg Chewable Antacid Tab PO SCH ×2 (09:33→17:39)
--- NOTE | 2016-09-23 12:20 | PCM.PYCHPN ---
Psychiatric Progress Note - Psychiatric Progress Note Patient seen today, length of contact: 16 min Patient Chief Complaint: I am feeling leola Problems Identified/Issues Discussed: Pt was seen and evaluated and chart reviewed and discussed with staff. As per the staff patient has been very calm and cooperative and easily directable. Although he is still forgetful but he remained cooperative. He reports improvement in his anxiety and he is more communicative now. He denies any auditory or visual hallucinations and denies any suicidal ideation several ideation. He is compliant with the medications and denies any side effects. Supportive therapy was given. Medication Change: No Medical Record Reviewed: Yes Mental Status Examination - Cognitive Function Orientation: Person, Place Memory: Impaired Attention: WNL Concentration: WNL Association: WNL Fund of Knowledge: Poor - Mood Mood: Neutral - Affect Affect: Constricted - Speech Speech: Soft - Formal Thought Process Formal Thought Process: No Impairment - Suicidal Ideation Suicidal Ideation: No - Homicidal Ideation Homicidal Ideation: No Goal/Treatment Plan - Goal/Treatment Plan Need for Continued Stay: Discharge may exacerbated symptoms, Severe functional impairment Progress Toward Problem(s) and Goals/Treatment Plan: Alzheimer's dementia w behavioral disturbances CBT Psychoeducation Supportive therapy, group therapy, individual therapy Seroquel 50 mg by mouth daily Seroquel 100 mg by mouth HS Depakote 125 mg by mouth twice a day Patient psychiatrically stable and cleared for discharge.
--- NOTE | 2016-09-23 17:08 | CP.PCM.PN ---
Subjective - Date & Time of Evaluation Date of Evaluation: 09/23/16 Time of Evaluation: 07:00 - Subjective Subjective: clinically same Objective - Vital Signs/Intake and Output Vital Signs (last 24 hours): Temp Pulse Resp BP Pulse Ox 98.4 F 74 20 92/47 L 95 09/23/16 15:45 09/23/16 15:45 09/23/16 15:45 09/23/16 15:45 09/23/16 15:45 Intake and Output: 09/23/16 09/23/16 06:59 18:59 Intake Total 240 500 Balance 240 500 - Medications Medications: Current Medications Acetaminophen (Tylenol 325mg Tab) 650 mg PO Q6 PRN PRN Reason: Pain, Mild (1-3) Last Admin: 09/10/16 14:22 Dose: 650 mg Apixaban (Eliquis) 2.5 mg PO BID [facility] Last Admin: 09/23/16 10:06 Dose: 2.5 mg Aspirin (Aspirin Chewable) 81 mg PO DAILY [facility] Last Admin: 09/23/16 09:32 Dose: 81 mg Calcium Carbonate (Tums) 500 mg PO BID [facility] Last Admin: 09/23/16 09:33 Dose: 500 mg Divalproex Sodium (Depakote Sprinkles) 125 mg PO BID [facility] Last Admin: 09/23/16 09:33 Dose: 125 mg Guaifenesin (Robitussin) 100 mg PO Q4H PRN PRN Reason: Cough Last Admin: 09/22/16 17:55 Dose: 100 mg Insulin Glargine (Lantus) 6 unit SC HS [facility] Last Admin: 09/22/16 21:28 Dose: 6 units Levothyroxine Sodium (Synthroid) 37.5 mcg PO DAILY@0630 [facility] Last Admin: 09/23/16 06:24 Dose: 37.5 mcg Metformin HCl (Glucophage) 1,000 mg PO BIDCC [facility] Last Admin: 09/23/16 09:32 Dose: 1,000 mg Pantoprazole Sodium (Protonix Ec Tab) 40 mg PO DAILY [facility] Last Admin: 09/23/16 09:32 Dose: 40 mg Quetiapine Fumarate (Seroquel) 100 mg PO HS [facility] Last Admin: 09/22/16 21:27 Dose: 100 mg Quetiapine Fumarate (Seroquel) 50 mg PO DAILY [facility] Last Admin: 09/23/16 09:32 Dose: 50 mg Rosuvastatin Calcium (Crestor) 5 mg PO HS [facility] Last Admin: 09/22/16 21:27 Dose: 5 mg Fluticasone/Salmeterol (Advair Diskus 250/50) 1 puff INH RQ12 [facility] Last Admin: 09/23/16 08:01 Dose: 1 puff Tamsulosin HCl (Flomax) 0.4 mg PO DAILY [facility] Last Admin: 09/23/16 09:32 Dose: 0.4 mg Tiotropium [place] (Spiriva) 18 mcg INH RQ24 [facility] Last Admin: 09/23/16 08:00 Dose: 18 mcg Tramadol HCl (Ultram) 25 mg PO Q6 PRN PRN Reason: mod - severe pain (4-10) Last Admin: 09/19/16 22:23 Dose: 25 mg - Labs Labs: 09/21/16 11:21 09/21/16 11:21 - Constitutional Appears: Well - Head Exam Head Exam: ATRAUMATIC, NORMAL INSPECTION, NORMOCEPHALIC - Eye Exam Eye Exam: EOMI, Normal appearance, PERRL Pupil Exam: NORMAL ACCOMODATION, PERRL - ENT Exam ENT Exam: Mucous Membranes Moist, Normal Exam - Neck Exam Neck Exam: Full ROM, Normal Inspection. absent: Lymphadenopathy - Respiratory Exam Respiratory Exam: Decreased Breath Sounds - Cardiovascular Exam Cardiovascular Exam: REGULAR RHYTHM, +S1, +S2 - GI/Abdominal Exam GI & Abdominal Exam: Soft, Diminished Bowel Sounds - Rectal Exam Rectal Exam: Deferred Assessment and Plan (1) Abnormal CXR (chest x-ray) Status: Acute (2) COPD (chronic obstructive pulmonary disease) Status: Acute (3) COPD exacerbation Status: Acute (4) Cardiac disease Status: Acute (5) Depression Status: Acute (6) Diabetes Status: Acute - Assessment and Plan (Free Text) Assessment: 1) L2 Compression Fracture Continue physical therapy as tolerated Will continue out of bed to chair as tolerated Follow Ortho and neurosurgery recommendations: bed rest and physical therapy No neurosurgical intervention at this time Physical therapy as tolerated Continue Out of bed to chair Imaging: CT confirms acute appearing L2 compression fracture, no retropulsion seen per report. Ill defined soft tissue density seen, ? edema. Would recommend attempt MRI (unsure if patient will tolerate and cooperate) for further visualization. * Neurosurgery Consulted, Dr. Rose. Lumbar XRAY 08/11: - 1. Age indeterminate acute superior endplate compression fracture in the L2 vertebral body with 4 mm retrolisthesis. 2. Mild multilevel degenerative disc disease, worse at L5-S1. see full report. 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 Will continue current psych medications per Dr. Bajwa's recommendations. No recent reported incidences of behavioral disturbances Continue seroquel 50 mg po QD and seroquel 100 mg po HS and depakote sprinkles 125 mg po BID per psych recs Patient off Remeron since 07/31/16. Remeron recommended by psych. However, patient's mood stable. Will add as needed. Will discuss with Dr. Bajwa about how often the behavioral disturbances are occurring in order for [facility] into [facility] 3) Depression No SI/HI. Monitor Psych Dr. Bajwa consulted, help appreciated. Management as above 4) Chest Pain Resolved. As per Dr. 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 Laura medina Case seen and discussed with the staff and the resident resume the resume the Eliquis continue same patients to behaviorally very stable Continue same Awaiting for the placement
[2016-09-23] MEDS: guaiFENesin 100 mg/5 ml Syrup UD PO PRN (17:39)
[2016-09-23] MEDS: (Lantus) Insulin Glargine, Recombinant SC SCH (21:26)
[2016-09-24] MEDS: Levothyroxine 75 MCG TAB PO SCH (06:12)
[2016-09-24] MEDS: Tiotropium 18 mcg Cap For Inhalation INH SCH (07:25)
[2016-09-24] MEDS: Fluticasone-Salmeterol 250-50mcg Diskus INH SCH ×2 (07:25→19:13)
--- NOTE | 2016-09-24 07:42 | CP.PCM.PN ---
Subjective - Date & Time of Evaluation Date of Evaluation: 09/24/16 Time of Evaluation: 07:42 - Subjective Subjective: Medicine Progress Note for Dr. Solis's Service Pt seen and examined at bedside. Clinically unchanged. No acute events overnight as per nursing staff. Objective - Vital Signs/Intake and Output Vital Signs (last 24 hours): Temp Pulse Resp BP Pulse Ox 98.1 F 80 20 103/58 L 93 L 09/24/16 00:00 09/24/16 00:00 09/24/16 00:00 09/24/16 00:00 09/24/16 00:00 Intake and Output: 09/24/16 09/24/16 06:59 18:59 Intake Total 240 Balance 240 - Medications Medications: Current Medications Acetaminophen (Tylenol 325mg Tab) 650 mg PO Q6 PRN PRN Reason: Pain, Mild (1-3) Last Admin: 09/10/16 14:22 Dose: 650 mg Apixaban (Eliquis) 2.5 mg PO BID [facility] Last Admin: 09/23/16 18:00 Dose: 2.5 mg Aspirin (Aspirin Chewable) 81 mg PO DAILY [facility] Last Admin: 09/23/16 09:32 Dose: 81 mg Calcium Carbonate (Tums) 500 mg PO BID [facility] Last Admin: 09/23/16 17:39 Dose: 500 mg Divalproex Sodium (Depakote Sprinkles) 125 mg PO BID [facility] Last Admin: 09/23/16 17:39 Dose: 125 mg Guaifenesin (Robitussin) 100 mg PO Q4H PRN PRN Reason: Cough Last Admin: 09/23/16 17:39 Dose: 100 mg Insulin Glargine (Lantus) 6 unit SC [facility] Last Admin: 09/23/16 21:26 Dose: 6 units Levothyroxine Sodium (Synthroid) 37.5 mcg PO DAILY@0630 [facility] Last Admin: 09/24/16 06:12 Dose: 37.5 mcg [facility] ([facility] Last Admin: 09/23/16 17:21 Dose: 1,000 mg Pantoprazole Sodium (Protonix Ec Tab) 40 mg PO DAILY [facility] Last Admin: 09/23/16 09:32 Dose: 40 mg Quetiapine Fumarate (Seroquel) 100 mg PO [facility] Last Admin: 09/23/16 21:22 Dose: 100 mg Quetiapine Fumarate (Seroquel) 50 mg PO DAILY [facility] Last Admin: 09/23/16 09:32 Dose: 50 mg Rosuvastatin Calcium (Crestor) 5 mg PO HS [facility] Last Admin: 09/23/16 21:22 Dose: 5 mg Fluticasone/Salmeterol (Advair Diskus 250/50) 1 puff INH RQ12 [facility] Last Admin: 09/24/16 07:25 Dose: Not Given Tamsulosin HCl (Flomax) 0.4 mg PO DAILY [facility] Last Admin: 09/23/16 09:32 Dose: 0.4 mg Tiotropium [place] (Spiriva) 18 mcg INH RQ24 [facility] Last Admin: 09/24/16 07:25 Dose: Not Given Tramadol HCl (Ultram) 25 mg PO Q6 PRN PRN Reason: mod - severe pain (4-10) Last Admin: 09/19/16 22:23 Dose: 25 mg - Labs Labs: 09/21/16 11:21 09/21/16 11:21 - Constitutional Appears: No Acute Distress - Head Exam Head Exam: ATRAUMATIC, NORMAL INSPECTION - Eye Exam Eye Exam: EOMI - ENT Exam ENT Exam: Mucous Membranes Moist - Respiratory Exam Respiratory Exam: Clear to Ausculation Bilateral. absent: Rhonchi, Wheezes - Cardiovascular Exam Cardiovascular Exam: REGULAR RHYTHM, +S1, +S2 - GI/Abdominal Exam GI & Abdominal Exam: Soft. absent: Tenderness - Neurological Exam Neurological Exam: Alert, Awake - Psychiatric Exam Psychiatric exam: Normal Mood - Skin Skin Exam: Dry Assessment and Plan - Assessment and Plan (Free Text) Plan: 1) L2 Compression Fracture Continue physical therapy as tolerated Will continue out of bed to chair as tolerated Follow Ortho and neurosurgery recommendations: bed rest and physical therapy No neurosurgical intervention at this time Physical therapy as tolerated Continue Out of bed to chair Imaging: CT confirms acute appearing L2 compression fracture, no retropulsion seen per report. Ill defined soft tissue density seen, ? edema. Would recommend attempt MRI (unsure if patient will tolerate and cooperate) for further visualization. * Neurosurgery Consulted, Dr. Rose. Lumbar XRAY 08/11: - 1. Age indeterminate acute superior endplate compression fracture in the L2 vertebral body with 4 mm retrolisthesis. 2. Mild multilevel degenerative disc disease, worse at L5-S1. see full report. 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 Will continue current psych medications per Dr. Bajwa's recommendations. No recent reported incidences of behavioral disturbances Continue seroquel 50 mg po QD and seroquel 100 mg po HS and depakote sprinkles 125 mg po BID per psych recs Patient off Remeron since 07/31/16. Remeron recommended by psych. However, patient's mood stable. Will add as needed. Will discuss with Dr. Bajwa about how often the behavioral disturbances are occurring in order for further placement into [facility] 3) Depression No SI/HI. Monitor Psych Dr. Bajwa consulted, help appreciated. Management as above 4) Chest Pain Resolved. As per Dr. Marinelli, likely secondary to [employer] as per consult 07/23/16. ROMIs negative EKG with LBBB as prior EKGs have also shown Cardio consult - Dr. Marinelli - help appreciated ECHO - left ventricular is normal size. there is mild to moderate concentric left ventricular hypertrophy. the systolic function is midly to moderately impaired. septal hypokinesis. mild to moderate aortic regurgitation. mild pulmonary hypertension. (please see full report) 5) Nodular opacity in chest Pulm consult - Dr. Hayden - help appreciated Chest CT - extensive bilateral fine nodular interstitial infiltrate both lower lobes. dense pleural based consolidation right lower lobe. subpleural emphysema. mild centrilobular pulmonary emphysema. left upper lobe nodules. 7mm and 9mm. reccomend f/u noncontrast chest CT in 3 months. Multiple left upper lobe nodular calcifications, likely granulomatous. probable small airways disease posterior right upper lobe. findings are nonspecific and may reflect infection or inflammatory disease. Patient needs to f/u outpatient per Dr. Hayden for nodular opacity in chest + COPD. 6) COPD Pulm consult - Dr. Hayden - help appreciated Advair and Spiriva 7) DM RISS, accuchecks. Lantus 6U SC HS, Metformin 8) Hypothyroid Continue synthroid 37.5 mcg po qd. 9) Hx of cardiac disease Continue Eliquis, ASA, Crestor. 10) Prophylactic measure Protonix 40 mg PO daily Eliquis 2.5 mg Po BID Social work referral Labs ordered MWF PT recommends DAPHNEY 11) BPH Continue with Flomax Disposition Discharge to rehab facility, pending authorization and acceptance. Need documentations of good behavior. Case discussed with attending Dr. Solis. All management per Dr. Solis.
[2016-09-24] MEDS: Pantoprazole 40 mg EC Tab PO SCH (09:39)
[2016-09-24] MEDS: Divalproex 125 mg Sprinkle Capsule PO SCH ×2 (09:39→17:57)
[2016-09-24] MEDS: Calcium Carbonate 500 mg Chewable Antacid Tab PO SCH ×2 (09:40→17:57)
--- NOTE | 2016-09-24 16:07 | CP.PCM.PN ---
Subjective - Date & Time of Evaluation Date of Evaluation: 09/24/16 Time of Evaluation: 13:00 - Subjective Subjective: clinically same Objective - Vital Signs/Intake and Output Vital Signs (last 24 hours): Temp Pulse Resp BP Pulse Ox 98.1 F 75 20 104/58 L 95 09/24/16 08:09 09/24/16 08:09 09/24/16 08:09 09/24/16 08:09 09/24/16 08:09 Intake and Output: 09/24/16 09/24/16 06:59 18:59 Intake Total 240 850 Balance 240 850 - Medications Medications: Current Medications Acetaminophen (Tylenol 325mg Tab) 650 mg PO Q6 PRN PRN Reason: Pain, Mild (1-3) Last Admin: 09/10/16 14:22 Dose: 650 mg Apixaban (Eliquis) 2.5 mg PO BID [facility] Last Admin: 09/24/16 09:39 Dose: 2.5 mg Aspirin (Aspirin Chewable) 81 mg PO DAILY [facility] Last Admin: 09/24/16 09:40 Dose: 81 mg Calcium Carbonate (Tums) 500 mg PO BID [facility] Last Admin: 09/24/16 09:40 Dose: 500 mg Divalproex Sodium (Depakote Sprinkles) 125 mg PO BID [facility] Last Admin: 09/24/16 09:39 Dose: 125 mg Guaifenesin (Robitussin) 100 mg PO Q4H PRN PRN Reason: Cough Last Admin: 09/23/16 17:39 Dose: 100 mg Insulin Glargine (Lantus) 6 unit SC HS [facility] Last Admin: 09/23/16 21:26 Dose: 6 units Levothyroxine Sodium (Synthroid) 37.5 mcg PO DAILY@0630 [facility] Last Admin: 09/24/16 06:12 Dose: 37.5 mcg Metformin HCl (Glucophage) 1,000 mg PO BIDCC [facility] Last Admin: 09/24/16 09:39 Dose: 1,000 mg Pantoprazole Sodium (Protonix Ec Tab) 40 mg PO DAILY [facility] Last Admin: 09/24/16 09:39 Dose: 40 mg Quetiapine Fumarate (Seroquel) 100 mg PO HS [facility] Last Admin: 09/23/16 21:22 Dose: 100 mg Quetiapine Fumarate (Seroquel) 50 mg PO DAILY [facility] Last Admin: 09/24/16 09:40 Dose: 50 mg Rosuvastatin Calcium (Crestor) 5 mg PO HS [facility] Last Admin: 09/23/16 21:22 Dose: 5 mg Fluticasone/Salmeterol (Advair Diskus 250/50) 1 puff INH RQ12 [facility] Last Admin: 09/24/16 07:25 Dose: Not Given Tamsulosin HCl (Flomax) 0.4 mg PO DAILY [facility] Last Admin: 09/24/16 09:40 Dose: 0.4 mg Tiotropium [place] (Spiriva) 18 mcg INH RQ24 [facility] Last Admin: 09/24/16 07:25 Dose: Not Given Tramadol HCl (Ultram) 25 mg PO Q6 PRN PRN Reason: mod - severe pain (4-10) Last Admin: 09/19/16 22:23 Dose: 25 mg - Labs Labs: 09/21/16 11:21 09/21/16 11:21 - Constitutional Appears: Well - Head Exam Head Exam: ATRAUMATIC, NORMAL INSPECTION, NORMOCEPHALIC - Eye Exam Eye Exam: EOMI, Normal appearance, PERRL Pupil Exam: NORMAL ACCOMODATION, PERRL - ENT Exam ENT Exam: Mucous Membranes Moist, Normal Exam - Neck Exam Neck Exam: Full ROM, Normal Inspection. absent: Lymphadenopathy - Respiratory Exam Respiratory Exam: Decreased Breath Sounds - Cardiovascular Exam Cardiovascular Exam: REGULAR RHYTHM, +S1, +S2 - GI/Abdominal Exam GI & Abdominal Exam: Soft, Diminished Bowel Sounds - Rectal Exam Rectal Exam: Deferred Assessment and Plan (1) Abnormal CXR (chest x-ray) Status: Acute (2) COPD (chronic obstructive pulmonary disease) Status: Acute (3) COPD exacerbation Status: Acute (4) Cardiac disease Status: Acute (5) Depression Status: Acute (6) Diabetes Status: Acute - Assessment and Plan (Free Text) Plan: No acute event Seroquel Statins Continue aspirin flomax depakote Accu-Cheks Metformin Physical therapy monitor labs
[2016-09-24] MEDS: guaiFENesin 100 mg/5 ml Syrup UD PO PRN (18:01)
[2016-09-24] MEDS: (Lantus) Insulin Glargine, Recombinant SC SCH (21:40)
[2016-09-25] MEDS: Levothyroxine 75 MCG TAB PO SCH (06:23)
--- NOTE | 2016-09-25 07:24 | CP.PCM.PN ---
<Twan Rodriguez - Last Filed: 09/25/16 09:55> Subjective - Date & Time of Evaluation Date of Evaluation: 09/25/16 Time of Evaluation: 09:00 - Subjective Subjective: Medicine note- Dr. Solis's service Patient was seen and examined at bedside. Patient reports no acute complaints at this time. No events overnight per nursing. Objective - Vital Signs/Intake and Output Vital Signs (last 24 hours): Temp Pulse Resp BP Pulse Ox 98 F 76 20 100/62 95 09/24/16 23:42 09/24/16 23:42 09/24/16 23:42 09/24/16 23:42 09/24/16 23:42 - Medications Medications: Current Medications Acetaminophen (Tylenol 325mg Tab) 650 mg PO Q6 PRN PRN Reason: Pain, Mild (1-3) Last Admin: 09/10/16 14:22 Dose: 650 mg Apixaban (Eliquis) 2.5 mg PO BID [facility] Last Admin: 09/24/16 17:57 Dose: 2.5 mg Aspirin (Aspirin Chewable) 81 mg PO DAILY [facility] Last Admin: 09/24/16 09:40 Dose: 81 mg Calcium Carbonate (Tums) 500 mg PO BID [facility] Last Admin: 09/24/16 17:57 Dose: 500 mg Divalproex Sodium (Depakote Sprinkles) 125 mg PO BID [facility] Last Admin: 09/24/16 17:57 Dose: 125 mg Guaifenesin (Robitussin) 100 mg PO Q4H PRN PRN Reason: Cough Last Admin: 09/24/16 18:01 Dose: 100 mg Insulin Glargine (Lantus) 6 unit SC [facility] Last Admin: 09/24/16 21:40 Dose: 6 units Levothyroxine Sodium (Synthroid) 37.5 mcg PO DAILY@0630 [facility] Last Admin: 09/25/16 06:23 Dose: 37.5 [facility]cg [facility] Admin: 09/24/16 16:11 Dose: 1,000 mg Pantoprazole Sodium (Protonix Ec Tab) 40 mg PO DAILY [facility] Last Admin: 09/24/16 09:39 Dose: 40 mg Quetiapine Fumarate (Seroquel) 100 mg PO [facility] Last Admin: 08/10/17 21:38 Dose: 100 mg Quetiapine Fumarate (Seroquel) 50 mg PO DAILY [facility] Last Admin: 09/24/16 09:40 Dose: 50 mg Rosuvastatin Calcium (Crestor) 5 mg PO HS [facility] Last Admin: 09/24/16 21:38 Dose: 5 mg Fluticasone/Salmeterol (Advair Diskus 250/50) 1 puff INH RQ12 [facility] Last Admin: 09/24/16 19:13 Dose: 1 puff Tamsulosin HCl (Flomax) 0.4 mg PO DAILY [facility] Last Admin: 09/24/16 09:40 Dose: 0.4 mg Tiotropium [place] (Spiriva) 18 mcg INH RQ24 [facility] Last Admin: 09/24/16 07:25 Dose: Not Given Tramadol HCl (Ultram) 25 mg PO Q6 PRN PRN Reason: mod - severe pain (4-10) Last Admin: 09/19/16 22:23 Dose: 25 mg - Labs Labs: 09/21/16 11:21 09/21/16 11:21 - Constitutional Appears: Non-toxic, In Acute Distress - Head Exam Head Exam: ATRAUMATIC, NORMAL INSPECTION, NORMOCEPHALIC - Eye Exam Eye Exam: EOMI, Normal appearance Pupil Exam: NORMAL ACCOMODATION, PERRL - ENT Exam ENT Exam: Mucous Membranes Moist, Normal Exam - Neck Exam Neck Exam: Normal Inspection - Respiratory Exam Respiratory Exam: Clear to Ausculation Bilateral, NORMAL BREATHING PATTERN. absent: Prolonged Expiratory Phase, Rales, Rhonchi - Cardiovascular Exam Cardiovascular Exam: REGULAR RHYTHM, +S1, +S2. absent: RRR, Rubs - GI/Abdominal Exam GI & Abdominal Exam: Soft, Normal Bowel Sounds. absent: Diminished Bowel Sounds , Hernia, Hyperactive Bowel Sounds, Hypoactive Bowel Sounds - Extremities Exam Extremities Exam: Normal Capillary Refill, Normal Inspection - Neurological Exam Neurological Exam: Alert, CN II-XII Intact, Oriented x3 - Psychiatric Exam Psychiatric exam: Normal Affect, Normal Mood - Skin Skin Exam: Dry, Intact, Normal Color, Warm Assessment and Plan - Assessment and Plan (Free Text) Assessment: 1) L2 Compression Fracture Continue physical therapy as tolerated Will continue out of bed to chair as tolerated Follow Ortho and neurosurgery recommendations: bed rest and physical therapy No neurosurgical intervention at this time Physical therapy as tolerated Continue Out of bed to chair Imaging: CT confirms acute appearing L2 compression fracture, no retropulsion seen per report. Ill defined soft tissue density seen, ? edema. Would recommend attempt MRI (unsure if patient will tolerate and cooperate) for further visualization. * Neurosurgery Consulted, Dr. Rose. Lumbar XRAY 08/11: - 1. Age indeterminate acute superior endplate compression fracture in the L2 vertebral body with 4 mm retrolisthesis. 2. Mild multilevel degenerative disc disease, worse at L5-S1. see full report. 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 Will continue current psych medications per Dr. Bajwa's recommendations. No recent reported incidences of behavioral disturbances Continue seroquel 50 mg po QD and seroquel 100 mg po HS and depakote sprinkles 125 mg po BID per psych recs Patient off Remeron since 07/31/16. Remeron recommended by psych. However, patient's mood stable. Will add as needed. Will discuss with Dr. Bajwa about how often the behavioral disturbances are occurring in order for further placement into shelter 3) Depression No SI/HI. Monitor Psych Dr. Bajwa consulted, help appreciated. Management as above 4) Chest Pain Resolved. As per Dr. Marinelli, likely secondary to [employer] as per consult 07/23/16. ROMIs negative EKG with LBBB as prior EKGs have also shown Cardio consult - Dr. Marinelli - help appreciated ECHO - left ventricular is normal size. there is mild to moderate concentric left ventricular hypertrophy. the systolic function is midly to moderately impaired. septal hypokinesis. mild to moderate aortic regurgitation. mild pulmonary hypertension. (please see full report) 5) Nodular opacity in chest Pulm consult - Dr. Hayden - help appreciated Chest CT - extensive bilateral fine nodular interstitial infiltrate both lower lobes. dense pleural based consolidation right lower lobe. subpleural emphysema. mild centrilobular pulmonary emphysema. left upper lobe nodules. 7mm and 9mm. reccomend f/u noncontrast chest CT in 3 months. Multiple left upper lobe nodular calcifications, likely granulomatous. probable small airways disease posterior right upper lobe. findings are nonspecific and may reflect infection or inflammatory disease. Patient needs to f/u outpatient per Dr. Hayden for nodular opacity in chest + COPD. 6) COPD Pulm consult - Dr. Hayden - help appreciated Advair and Spiriva 7) DM RISS, accuchecks. Lantus 6U SC HS, Metformin 8) Hypothyroid Continue synthroid 37.5 mcg po qd. 9) Hx of cardiac disease Continue Eliquis, ASA, Crestor. 10) Prophylactic measure Protonix 40 mg PO daily Eliquis 2.5 mg Po BID Social work referral Labs ordered MWF PT recommends DAPHNEY 11) BPH Continue with Flomax Disposition Discharge to rehab facility, pending authorization and acceptance. Need documentations of good behavior. Case discussed with attending Dr. Solis. All management per Dr. Solis. <Perla Solis S - Last Filed: 09/28/16 20:14> Objective - Vital Signs/Intake and Output Vital Signs (last 24 hours): Temp Pulse Resp BP Pulse Ox 98.2 F 64 20 113/61 96 09/28/16 15:00 09/28/16 15:00 09/28/16 15:00 09/28/16 15:00 09/28/16 15:00 Intake and Output: 09/28/16 09/29/16 18:59 06:59 Intake Total 400 Balance 400 - Medications Medications: Current Medications Acetaminophen (Tylenol 325mg Tab) 650 mg PO Q6 PRN PRN Reason: Pain, Mild (1-3) Last Admin: 09/10/16 14:22 Dose: 650 mg Apixaban (Eliquis) 2.5 mg PO BID [facility] Last Admin: 09/28/16 17:23 Dose: 2.5 mg Aspirin (Aspirin Chewable) 81 mg PO DAILY [facility] Last Admin: 09/28/16 09:28 Dose: 81 mg Calcium Carbonate (Tums) 500 mg PO BID [facility] Last Admin: 09/28/16 17:23 Dose: 500 mg Divalproex Sodium (Depakote Sprinkles) 125 mg PO BID [facility] Last Admin: 09/28/16 17:23 Dose: 125 mg Guaifenesin (Robitussin) 100 mg PO Q4H PRN PRN Reason: Cough Last Admin: 09/28/16 14:30 Dose: 100 mg Insulin Glargine (Lantus) 6 unit SC HS [facility] Last Admin: 09/27/16 21:29 Dose: 6 units Levothyroxine Sodium (Synthroid) 37.5 mcg PO DAILY@0630 [facility] Last Admin: 09/28/16 06:29 Dose: 37.5 mcg Metformin HCl (Glucophage) 1,000 mg PO BIDCC [facility] Last Admin: 09/28/16 17:23 Dose: 1,000 mg Pantoprazole Sodium (Protonix Ec Tab) 40 mg PO DAILY [facility] Last Admin: 09/28/16 09:28 Dose: 40 mg Quetiapine Fumarate (Seroquel) 100 mg PO HS [facility] Last Admin: 09/27/16 21:28 Dose: 100 mg Quetiapine Fumarate (Seroquel) 50 mg PO DAILY [facility] Last Admin: 09/28/16 09:28 Dose: 50 mg Rosuvastatin Calcium (Crestor) 5 mg PO HS [facility] Last Admin: 09/27/16 21:28 Dose: 5 mg Fluticasone/Salmeterol (Advair Diskus 250/50) 1 puff INH RQ12 [facility] Last Admin: 09/28/16 08:08 Dose: 1 puff Tamsulosin HCl (Flomax) 0.4 mg PO DAILY [facility] Last Admin: 09/28/16 09:28 Dose: 0.4 mg Tiotropium [place] (Spiriva) 18 mcg INH RQ24 [facility] Last Admin: 09/28/16 08:08 Dose: 18 mcg Tramadol HCl (Ultram) 25 mg PO Q6 PRN PRN Reason: mod - severe pain (4-10) Last Admin: 09/19/16 22:23 Dose: 25 mg - Labs Labs: 09/25/16 07:45 09/25/16 07:45 Assessment and Plan (1) Abnormal CXR (chest x-ray) Status: Acute (2) COPD (chronic obstructive pulmonary disease) Status: Acute (3) COPD exacerbation Status: Acute (4) Cardiac disease Status: Acute (5) Depression Status: Acute (6) Diabetes Status: Acute - Assessment and Plan (Free Text) Plan: Same discussed with the staff and resident as ordered
[2016-09-25 07:55] LABS: BASO % 0.7 % (0.0-2.0); EOS # 0.2 K/uL (0.0-0.7); EOS % 2.9 % (0.0-4.0); HEMATOCRIT 30.2 % (35.0-51.0); LYMPH # 1.5 K/uL (1.0-4.3); LYMPH % 27.4 % (20.0-40.0); MEAN CORPUSCULAR HEMOGLOBIN 28.1 pg (27.0-31.0); MEAN CORPUSCULAR HGB CONC 32.3 g/dL (33.0-37.0); MEAN PLATELET VOLUME 8.1 fL (7.2-11.7); MONO # 0.8 K/uL (0.0-0.8); MONO % 14.6 % (0.0-10.0); RED CELL DISTRIBUTION WIDTH 17.5 % (11.5-14.5); WHITE BLOOD COUNT 5.4 K/uL (4.8-10.8)
[2016-09-25] MEDS: Tiotropium 18 mcg Cap For Inhalation INH SCH (08:05)
[2016-09-25] MEDS: Fluticasone-Salmeterol 250-50mcg Diskus INH SCH ×2 (08:05→19:48)
[2016-09-25 08:07] LABS: CHLORIDE 102 mmol/L (98-107); POTASSIUM 3.9 mmol/L (3.6-5.2); SODIUM 138 mmol/L (132-148)
[2016-09-25 08:09] LABS: AST/SGOT 12 U/L (17-59); BILIRUBIN,TOTAL 0.3 mg/dL (0.2-1.3); CARBON DIOXIDE 28 mmol/L (22-30); GFR AFRICAN-AMERICAN > 60
[2016-09-25 08:10] LABS: ALKALINE PHOSPHATASE 43 U/L (38-126); ALT/SGPT 25 U/L (21-72); BLOOD UREA NITROGEN 27 mg/dL (9-20); CALCIUM 8.3 mg/dl (8.6-10.4); GLUCOSE,RANDOM 94 mg/dL (75-110); TOTAL PROTEIN 5.6 g/dL (6.3-8.3)
--- NOTE | 2016-09-25 09:55 | CP.PCM.PN ---
Subjective - Date & Time of Evaluation Date of Evaluation: 09/25/16 Time of Evaluation: 07:00 - Subjective Subjective: clinically same Objective - Vital Signs/Intake and Output Vital Signs (last 24 hours): Temp Pulse Resp BP Pulse Ox 98.7 F 66 20 122/68 98 09/25/16 09:00 09/25/16 09:00 09/25/16 09:00 09/25/16 09:00 09/25/16 09:00 - Medications Medications: Current Medications Acetaminophen (Tylenol 325mg Tab) 650 mg PO Q6 PRN PRN Reason: Pain, Mild (1-3) Last Admin: 09/10/16 14:22 Dose: 650 mg Apixaban (Eliquis) 2.5 mg PO BID [facility] Last Admin: 09/24/16 17:57 Dose: 2.5 mg Aspirin (Aspirin Chewable) 81 mg PO DAILY [facility] Last Admin: 09/24/16 09:40 Dose: 81 mg Calcium Carbonate (Tums) 500 mg PO BID [facility] Last Admin: 09/24/16 17:57 Dose: 500 mg Divalproex Sodium (Depakote Sprinkles) 125 mg PO BID [facility] Last Admin: 09/24/16 17:57 Dose: 125 mg Guaifenesin (Robitussin) 100 mg PO Q4H PRN PRN Reason: Cough Last Admin: 09/24/16 18:01 Dose: 100 mg Insulin Glargine (Lantus) 6 unit SC [facility] Last Admin: 09/24/16 21:40 Dose: 6 units Levothyroxine Sodium (Synthroid) 37.5 mcg PO DAILY@0630 [facility] Last Admin: 09/25/16 06:23 Dose: 37.5 mcg [facility] Admin: 09/24/16 16:11 Dose: 1,000 mg Pantoprazole Sodium (Protonix Ec Tab) 40 mg PO DAILY [facility] Last Admin: 09/24/16 09:39 Dose: 40 mg Quetiapine Fumarate (Seroquel) 100 mg PO [facility] Last Admin: 09/24/16 21:38 Dose: 100 mg Quetiapine Fumarate (Seroquel) 50 mg PO DAILY [facility] Last Admin: 09/24/16 09:40 Dose: 50 mg Rosuvastatin Calcium (Crestor) 5 mg PO [facility] Last Admin: 09/24/16 21:38 Dose: 5 mg Fluticasone/Salmeterol (Advair Diskus 250/50) 1 puff INH RQ12 [facility] Last Admin: 09/25/16 08:05 Dose: 1 puff Tamsulosin HCl (Flomax) 0.4 mg PO DAILY [facility] Last Admin: 09/24/16 09:40 Dose: 0.4 mg Tiotropium [place] (Spiriva) 18 mcg INH RQ24 [facility] Last Admin: 09/25/16 08:05 Dose: 18 mcg Tramadol HCl (Ultram) 25 mg PO Q6 PRN PRN Reason: mod - severe pain (4-10) Last Admin: 09/19/16 22:23 Dose: 25 mg - Labs Labs: 09/25/16 07:45 09/25/16 07:45 - Constitutional Appears: Well - Head Exam Head Exam: ATRAUMATIC, NORMAL INSPECTION, NORMOCEPHALIC - Eye Exam Eye Exam: EOMI, Normal appearance, PERRL Pupil Exam: NORMAL ACCOMODATION, PERRL - ENT Exam ENT Exam: Mucous Membranes Moist, Normal Exam - Neck Exam Neck Exam: Full ROM, Normal Inspection. absent: Lymphadenopathy - Respiratory Exam Respiratory Exam: Decreased Breath Sounds - Cardiovascular Exam Cardiovascular Exam: REGULAR RHYTHM, +S1, +S2 - GI/Abdominal Exam GI & Abdominal Exam: Soft, Diminished Bowel Sounds - Rectal Exam Rectal Exam: Deferred Assessment and Plan (1) Abnormal CXR (chest x-ray) Status: Acute (2) COPD (chronic obstructive pulmonary disease) Status: Acute (3) COPD exacerbation Status: Acute (4) Cardiac disease Status: Acute (5) Depression Status: Acute (6) Diabetes Status: Acute - Assessment and Plan (Free Text) Plan: L2 Compression Fracture Continue physical therapy as tolerated Will continue out of bed to chair as tolerated Follow Ortho and neurosurgery recommendations: bed rest and physical therapy No neurosurgical intervention at this time Physical therapy as tolerated Continue Out of bed to chair Imaging: CT confirms acute appearing L2 compression fracture, no retropulsion seen per report. Ill defined soft tissue density seen, ? edema. Would recommend attempt MRI (unsure if patient will tolerate and cooperate) for further visualization. Neurosurgery Consulted, Dr. Rose. Lumbar XRAY 08/11: - 1. Age indeterminate acute superior endplate compression fracture in the L2 vertebral body with 4 mm retrolisthesis. 2. Mild multilevel degenerative disc disease, worse at L5-S1. see full report. 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 Will continue current psych medications per Dr. Bajwa's recommendations. No recent reported incidences of behavioral disturbances Continue seroquel 50 mg po QD and seroquel 100 mg po HS and depakote sprinkles 125 mg po BID per psych recs Patient off Remeron since 07/31/16. Remeron recommended by psych. However, patient's mood stable. Will add as needed. Will discuss with Dr. Bajwa about how often the behavioral disturbances are occurring in order for further placement into residential 3) Depression No SI/HI. Monitor Psych Dr. Bajwa consulted, help appreciated. Management as above 4) Chest Pain Resolved. As per Dr. Marinelli, likely secondary to [employer] as per consult 07/23/16. ROMIs negative EKG with LBBB as prior EKGs have also shown Cardio consult - Dr. Marinelli - help appreciated ECHO - left ventricular is normal size. there is mild to moderate concentric left ventricular hypertrophy. the systolic function is midly to moderately impaired. septal hypokinesis. mild to moderate aortic regurgitation. mild pulmonary hypertension. (please see full report) 5) Nodular opacity in chest Pulm consult - Dr. Hayden - help appreciated Chest CT - extensive bilateral fine nodular interstitial infiltrate both lower lobes. dense pleural based consolidation right lower lobe. subpleural emphysema. mild centrilobular pulmonary emphysema. left upper lobe nodules. 7mm and 9mm. reccomend f/u noncontrast chest CT in 3 months. Multiple left upper lobe nodular calcifications, likely granulomatous. probable small airways disease posterior right upper lobe. findings are nonspecific and may reflect infection or inflammatory disease. Patient needs to f/u outpatient per Dr. Hayden for nodular opacity in chest + COPD. 6) COPD Pulm consult - Dr. Hayden - help appreciated Advair and Spiriva
[2016-09-25] MEDS: Divalproex 125 mg Sprinkle Capsule PO SCH ×2 (10:18→17:14)
[2016-09-25] MEDS: Pantoprazole 40 mg EC Tab PO SCH (10:19)
[2016-09-25] MEDS: Calcium Carbonate 500 mg Chewable Antacid Tab PO SCH ×2 (10:19→17:15)
[2016-09-25] MEDS: (Lantus) Insulin Glargine, Recombinant SC SCH (21:30)
[2016-09-26] MEDS: Levothyroxine 75 MCG TAB PO SCH (06:11)
[2016-09-26] MEDS: Tiotropium 18 mcg Cap For Inhalation INH SCH (08:30)
[2016-09-26] MEDS: Fluticasone-Salmeterol 250-50mcg Diskus INH SCH ×2 (08:30→20:19)
[2016-09-26] MEDS: Divalproex 125 mg Sprinkle Capsule PO SCH ×2 (10:15→18:51)
[2016-09-26] MEDS: Calcium Carbonate 500 mg Chewable Antacid Tab PO SCH ×2 (10:16→18:51)
[2016-09-26] MEDS: Pantoprazole 40 mg EC Tab PO SCH (10:16)
--- NOTE | 2016-09-26 11:20 | CP.PCM.PN ---
Subjective - Date & Time of Evaluation Date of Evaluation: 09/26/16 Time of Evaluation: 07:00 - Subjective Subjective: clinically same Objective - Vital Signs/Intake and Output Vital Signs (last 24 hours): Temp Pulse Resp BP Pulse Ox 97.9 F 60 20 105/60 95 09/26/16 07:20 09/26/16 07:20 09/26/16 07:20 09/26/16 07:20 09/26/16 07:20 Intake and Output: 09/26/16 09/26/16 06:59 18:59 Intake Total 370 Balance 370 - Medications Medications: Current Medications Acetaminophen (Tylenol 325mg Tab) 650 mg PO Q6 PRN PRN Reason: Pain, Mild (1-3) Last Admin: 09/10/16 14:22 Dose: 650 mg Apixaban (Eliquis) 2.5 mg PO BID [facility] Last Admin: 09/26/16 10:16 Dose: 2.5 mg Aspirin (Aspirin Chewable) 81 mg PO DAILY [facility] Last Admin: 09/26/16 10:15 Dose: 81 mg Calcium Carbonate (Tums) 500 mg PO BID [facility] Last Admin: 09/26/16 10:16 Dose: 500 mg Divalproex Sodium (Depakote Sprinkles) 125 mg PO BID [facility] Last Admin: 09/26/16 10:15 Dose: 125 mg Guaifenesin (Robitussin) 100 mg PO Q4H PRN PRN Reason: Cough Last Admin: 09/24/16 18:01 Dose: 100 mg Insulin Glargine (Lantus) 6 unit SC HS [facility] Last Admin: 09/25/16 21:30 Dose: 6 units Levothyroxine Sodium (Synthroid) 37.5 mcg PO DAILY@0630 [facility] Last Admin: 09/26/16 06:11 Dose: 37.5 mcg Metformin HCl (Glucophage) 1,000 mg PO BIDCC [facility] Last Admin: 09/26/16 08:13 Dose: 1,000 mg Pantoprazole Sodium (Protonix Ec Tab) 40 mg PO DAILY [facility] Last Admin: 09/26/16 10:16 Dose: 40 mg Quetiapine Fumarate (Seroquel) 100 mg PO HS [facility] Last Admin: 09/25/16 21:30 Dose: 100 mg Quetiapine Fumarate (Seroquel) 50 mg PO DAILY [facility] Last Admin: 09/26/16 10:16 Dose: 50 mg Rosuvastatin Calcium (Crestor) 5 mg PO HS [facility] Last Admin: 09/25/16 21:30 Dose: 5 mg Fluticasone/Salmeterol (Advair Diskus 250/50) 1 puff INH RQ12 [facility] Last Admin: 09/26/16 08:30 Dose: 1 puff Tamsulosin HCl (Flomax) 0.4 mg PO DAILY [facility] Last Admin: 09/26/16 10:16 Dose: 0.4 mg Tiotropium [place] (Spiriva) 18 mcg INH RQ24 [facility] Last Admin: 09/26/16 08:30 Dose: 18 mcg Tramadol HCl (Ultram) 25 mg PO Q6 PRN PRN Reason: mod - severe pain (4-10) Last Admin: 09/19/16 22:23 Dose: 25 mg - Labs Labs: 09/25/16 07:45 09/25/16 07:45 - Constitutional Appears: Well - Head Exam Head Exam: ATRAUMATIC, NORMAL INSPECTION, NORMOCEPHALIC - Eye Exam Eye Exam: EOMI, Normal appearance, PERRL Pupil Exam: NORMAL ACCOMODATION, PERRL - ENT Exam ENT Exam: Mucous Membranes Moist, Normal Exam - Neck Exam Neck Exam: Full ROM, Normal Inspection. absent: Lymphadenopathy - Respiratory Exam Respiratory Exam: Decreased Breath Sounds - Cardiovascular Exam Cardiovascular Exam: REGULAR RHYTHM, +S1, +S2 - GI/Abdominal Exam GI & Abdominal Exam: Soft, Diminished Bowel Sounds - Rectal Exam Rectal Exam: Deferred Assessment and Plan (1) Abnormal CXR (chest x-ray) Status: Acute (2) COPD (chronic obstructive pulmonary disease) Status: Acute (3) COPD exacerbation Status: Acute (4) Cardiac disease Status: Acute (5) Depression Status: Acute (6) Diabetes Status: Acute - Assessment and Plan (Free Text) Plan: Case seen and discussed with the staff continue same awaiting rehab rehab placement continue medications including Eliquis
[2016-09-26] MEDS: (Lantus) Insulin Glargine, Recombinant SC SCH (22:07)
[2016-09-27] MEDS: Levothyroxine 75 MCG TAB PO SCH (06:27)
[2016-09-27] MEDS: Tiotropium 18 mcg Cap For Inhalation INH SCH (07:42)
[2016-09-27] MEDS: Fluticasone-Salmeterol 250-50mcg Diskus INH SCH ×2 (07:42→20:39)
--- NOTE | 2016-09-27 09:44 | CP.PCM.PN ---
Subjective - Date & Time of Evaluation Date of Evaluation: 09/27/16 Time of Evaluation: 07:00 - Subjective Subjective: clinically same Objective - Vital Signs/Intake and Output Vital Signs (last 24 hours): Temp Pulse Resp BP Pulse Ox 98.3 F 74 20 110/62 97 09/27/16 09:00 09/27/16 09:00 09/27/16 09:00 09/27/16 09:00 09/27/16 09:00 Intake and Output: 09/27/16 09/27/16 06:59 18:59 Intake Total 350 Balance 350 - Medications Medications: Current Medications Acetaminophen (Tylenol 325mg Tab) 650 mg PO Q6 PRN PRN Reason: Pain, Mild (1-3) Last Admin: 09/10/16 14:22 Dose: 650 mg Apixaban (Eliquis) 2.5 mg PO BID [facility] Last Admin: 09/26/16 18:51 Dose: 2.5 mg Aspirin (Aspirin Chewable) 81 mg PO DAILY [facility] Last Admin: 09/26/16 10:15 Dose: 81 mg Calcium Carbonate (Tums) 500 mg PO BID [facility] Last Admin: 09/26/16 18:51 Dose: 500 mg Divalproex Sodium (Depakote Sprinkles) 125 mg PO BID [facility] Last Admin: 09/26/16 18:51 Dose: 125 mg Guaifenesin (Robitussin) 100 mg PO Q4H PRN PRN Reason: Cough Last Admin: 09/24/16 18:01 Dose: 100 mg Insulin Glargine (Lantus) 6 unit SC HS [facility] Last Admin: 09/26/16 22:07 Dose: 6 units Levothyroxine Sodium (Synthroid) 37.5 mcg PO DAILY@0630 [facility] Last Admin: 09/27/16 06:27 Dose: 37.5 mcg Metformin HCl (Glucophage) 1,000 mg PO BIDCC [facility] Last Admin: 09/27/16 07:52 Dose: 1,000 mg Pantoprazole Sodium (Protonix Ec Tab) 40 mg PO DAILY [facility] Last Admin: 09/26/16 10:16 Dose: 40 mg Quetiapine Fumarate (Seroquel) 100 mg PO HS [facility] Last Admin: 09/26/16 21:58 Dose: 100 mg Quetiapine Fumarate (Seroquel) 50 mg PO DAILY [facility] Last Admin: 09/26/16 10:16 Dose: 50 mg Rosuvastatin Calcium (Crestor) 5 mg PO HS [facility] Last Admin: 09/26/16 21:58 Dose: 5 mg Fluticasone/Salmeterol (Advair Diskus 250/50) 1 puff INH RQ12 [facility] Last Admin: 09/27/16 07:42 Dose: 1 puff Tamsulosin HCl (Flomax) 0.4 mg PO DAILY [facility] Last Admin: 09/26/16 10:16 Dose: 0.4 mg Tiotropium [place] (Spiriva) 18 mcg INH RQ24 [facility] Last Admin: 09/27/16 07:42 Dose: 18 mcg Tramadol HCl (Ultram) 25 mg PO Q6 PRN PRN Reason: mod - severe pain (4-10) Last Admin: 09/19/16 22:23 Dose: 25 mg - Labs Labs: 09/25/16 07:45 09/25/16 07:45 - Constitutional Appears: Well - Head Exam Head Exam: ATRAUMATIC, NORMAL INSPECTION, NORMOCEPHALIC - Eye Exam Eye Exam: EOMI, Normal appearance, PERRL Pupil Exam: NORMAL ACCOMODATION, PERRL - ENT Exam ENT Exam: Mucous Membranes Moist, Normal Exam - Neck Exam Neck Exam: Full ROM, Normal Inspection. absent: Lymphadenopathy - Respiratory Exam Respiratory Exam: Decreased Breath Sounds - Cardiovascular Exam Cardiovascular Exam: REGULAR RHYTHM, +S1, +S2 - GI/Abdominal Exam GI & Abdominal Exam: Soft, Diminished Bowel Sounds - Rectal Exam Rectal Exam: Deferred Assessment and Plan (1) Abnormal CXR (chest x-ray) Status: Acute (2) COPD (chronic obstructive pulmonary disease) Status: Acute (3) COPD exacerbation Status: Acute (4) Cardiac disease Status: Acute (5) Depression Status: Acute (6) Diabetes Status: Acute - Assessment and Plan (Free Text) Plan: patient comfortable No acute event Tolerating diet Seroquel Statins Continue aspirin flomax depakote Accu-Cheks lantus Physical therapy spiriva
[2016-09-27] MEDS: Pantoprazole 40 mg EC Tab PO SCH (10:23)
[2016-09-27] MEDS: Calcium Carbonate 500 mg Chewable Antacid Tab PO SCH ×2 (10:23→17:31)
[2016-09-27] MEDS: Divalproex 125 mg Sprinkle Capsule PO SCH ×2 (10:24→17:31)
[2016-09-27] MEDS: (Lantus) Insulin Glargine, Recombinant SC SCH (21:29)
[2016-09-28] MEDS: Levothyroxine 75 MCG TAB PO SCH (06:29)
[2016-09-28] MEDS: Tiotropium 18 mcg Cap For Inhalation INH SCH (08:08)
[2016-09-28] MEDS: Fluticasone-Salmeterol 250-50mcg Diskus INH SCH ×2 (08:08→20:50)
[2016-09-28] MEDS: Calcium Carbonate 500 mg Chewable Antacid Tab PO SCH ×2 (09:28→17:23)
[2016-09-28] MEDS: Divalproex 125 mg Sprinkle Capsule PO SCH ×2 (09:28→17:23)
[2016-09-28] MEDS: Pantoprazole 40 mg EC Tab PO SCH (09:28)
--- NOTE | 2016-09-28 12:50 | CP.PCM.PN ---
Subjective - Date & Time of Evaluation Date of Evaluation: 09/28/16 Time of Evaluation: 07:00 - Subjective Subjective: clinically same Objective - Vital Signs/Intake and Output Vital Signs (last 24 hours): Temp Pulse Resp BP Pulse Ox 97.4 F L 68 20 125/71 96 09/28/16 07:25 09/28/16 07:25 09/28/16 07:25 09/28/16 07:25 09/28/16 07:25 Intake and Output: 09/28/16 09/28/16 06:59 18:59 Intake Total 150 150 Output Total 400 Balance -250 150 - Medications Medications: Current Medications Acetaminophen (Tylenol 325mg Tab) 650 mg PO Q6 PRN PRN Reason: Pain, Mild (1-3) Last Admin: 09/10/16 14:22 Dose: 650 mg Apixaban (Eliquis) 2.5 mg PO BID [facility] Last Admin: 09/28/16 09:28 Dose: 2.5 mg Aspirin (Aspirin Chewable) 81 mg PO DAILY [facility] Last Admin: 09/28/16 09:28 Dose: 81 mg Calcium Carbonate (Tums) 500 mg PO BID [facility] Last Admin: 09/28/16 09:28 Dose: 500 mg Divalproex Sodium (Depakote Sprinkles) 125 mg PO BID [facility] Last Admin: 09/28/16 09:28 Dose: 125 mg Guaifenesin (Robitussin) 100 mg PO Q4H PRN PRN Reason: Cough Last Admin: 09/24/16 18:01 Dose: 100 mg Insulin Glargine (Lantus) 6 unit SC [facility] Last Admin: 09/27/16 21:29 Dose: 6 units Levothyroxine Sodium (Synthroid) 37.5 mcg PO DAILY@0630 [facility] Last Admin: 09/28/16 06:29 Dose: 37.5 mcg Metformin HCl (Glucophage) 1,000 mg PO BIDCC [facility] Last Admin: 09/28/16 09:28 Dose: 1,000 mg Pantoprazole Sodium (Protonix Ec Tab) 40 mg PO DAILY [facility] Last Admin: 09/28/16 09:28 Dose: 40 mg Quetiapine Fumarate (Seroquel) 100 mg PO HS [facility] Last Admin: 09/27/16 21:28 Dose: 100 mg Quetiapine Fumarate (Seroquel) 50 mg PO DAILY [facility] Last Admin: 09/28/16 09:28 Dose: 50 mg Rosuvastatin Calcium (Crestor) 5 mg PO HS [facility] Last Admin: 09/27/16 21:28 Dose: 5 mg Fluticasone/Salmeterol (Advair Diskus 250/50) 1 puff INH RQ12 [facility] Last Admin: 09/28/16 08:08 Dose: 1 puff Tamsulosin HCl (Flomax) 0.4 mg PO DAILY [facility] Last Admin: 09/28/16 09:28 Dose: 0.4 mg Tiotropium [place] (Spiriva) 18 mcg INH RQ24 [facility] Last Admin: 09/28/16 08:08 Dose: 18 mcg Tramadol HCl (Ultram) 25 mg PO Q6 PRN PRN Reason: mod - severe pain (4-10) Last Admin: 09/19/16 22:23 Dose: 25 mg - Labs Labs: 09/25/16 07:45 09/25/16 07:45 - Constitutional Appears: Well - Head Exam Head Exam: ATRAUMATIC, NORMAL INSPECTION, NORMOCEPHALIC - Eye Exam Eye Exam: EOMI, Normal appearance, PERRL Pupil Exam: NORMAL ACCOMODATION, PERRL - ENT Exam ENT Exam: Mucous Membranes Moist, Normal Exam - Neck Exam Neck Exam: Full ROM, Normal Inspection. absent: Lymphadenopathy - Respiratory Exam Respiratory Exam: Decreased Breath Sounds - Cardiovascular Exam Cardiovascular Exam: REGULAR RHYTHM, +S1, +S2 - GI/Abdominal Exam GI & Abdominal Exam: Soft - Rectal Exam Rectal Exam: Deferred Assessment and Plan (1) Abnormal CXR (chest x-ray) Status: Acute (2) COPD (chronic obstructive pulmonary disease) Status: Acute (3) COPD exacerbation Status: Acute (4) Cardiac disease Status: Acute (5) Depression Status: Acute (6) Diabetes Status: Acute - Assessment and Plan (Free Text) Plan: Continue same and discussed with the staff continue Eliquis Continue all consultations Continue Depakote Continue Eliquis continue Flomax continue tramadol Continue all the consultations Awaiting for subacute replacement rehab placement
[2016-09-28] MEDS: guaiFENesin 100 mg/5 ml Syrup UD PO PRN (14:30)
--- NOTE | 2016-09-28 14:31 | CP.PCM.PN ---
<Aroldo Welsh - Last Filed: 09/28/16 14:30> Subjective - Date & Time of Evaluation Date of Evaluation: 09/28/16 Time of Evaluation: 14:30 - Subjective Subjective: Medicine note for Dr. Solis's service Patient was seen and examined at bedside. Patient reports no acute complaints at this time. No events overnight per nursing. Objective - Vital Signs/Intake and Output Vital Signs (last 24 hours): Temp Pulse Resp BP Pulse Ox 97.4 F L 68 20 125/71 96 09/28/16 07:25 09/28/16 07:25 09/28/16 07:25 09/28/16 07:25 09/28/16 07:25 Intake and Output: 09/28/16 09/28/16 06:59 18:59 Intake Total 150 150 Output Total 400 Balance -250 150 - Medications Medications: Current Medications Acetaminophen (Tylenol 325mg Tab) 650 mg PO Q6 PRN PRN Reason: Pain, Mild (1-3) Last Admin: 09/10/16 14:22 Dose: 650 mg Apixaban (Eliquis) 2.5 mg PO BID [facility] [place] Last Admin: 09/28/16 09:28 Dose: 2.5 mg Aspirin (Aspirin Chewable) 81 mg PO DAILY [facility] Last Admin: 09/28/16 09:28 Dose: 81 mg Calcium Carbonate (Tums) 500 mg PO BID [facility] [place] Last Admin: 09/28/16 09:28 Dose: 500 mg Divalproex Sodium (Depakote Sprinkles) 125 mg PO BID [facility] Last Admin: 09/28/16 09:28 Dose: 125 mg Guaifenesin (Robitussin) 100 mg PO Q4H PRN PRN Reason: Cough Last Admin: 09/24/16 18:01 Dose: 100 mg Insulin Glargine (Lantus) 6 unit SC HS [facility] [place] Last Admin: 09/27/16 21:29 Dose: 6 units Levothyroxine Sodium (Synthroid) 37.5 mcg PO DAILY@0630 [facility] [place] Last Admin: 09/28/16 06:29 Dose: 37.5 mcg Metformin HCl (Glucophage) 1,000 mg PO BIDCC [facility] [place] Last Admin: 09/28/16 09:28 Dose: 1,000 mg Pantoprazole Sodium (Protonix Ec Tab) 40 mg PO DAILY [facility] Last Admin: 09/28/16 09:28 Dose: 40 mg Quetiapine Fumarate (Seroquel) 100 mg PO HS [facility] Last Admin: 09/27/16 21:28 Dose: 100 mg Quetiapine Fumarate (Seroquel) 50 mg PO DAILY [facility] [place] Last Admin: 09/28/16 09:28 Dose: 50 mg Rosuvastatin Calcium (Crestor) 5 mg PO HS [facility] [place] Last Admin: 09/27/16 21:28 Dose: 5 mg Fluticasone/Salmeterol (Advair Diskus 250/50) 1 puff INH RQ12 [facility] [place] Last Admin: 09/28/16 08:08 Dose: 1 puff Tamsulosin HCl (Flomax) 0.4 mg PO DAILY [facility] Last Admin: 09/28/16 09:28 Dose: 0.4 mg Tiotropium [place] (Spiriva) 18 mcg INH RQ24 [facility] Last Admin: 09/28/16 08:08 Dose: 18 mcg Tramadol HCl (Ultram) 25 mg PO Q6 PRN PRN Reason: mod - severe pain (4-10) Last Admin: 09/19/16 22:23 Dose: 25 mg - Labs Labs: 09/25/16 07:45 09/25/16 07:45 - Constitutional Appears: No Acute Distress - Head Exam Head Exam: ATRAUMATIC, NORMAL INSPECTION - Eye Exam Eye Exam: EOMI, Normal appearance - ENT Exam ENT Exam: Mucous Membranes Moist - Respiratory Exam Respiratory Exam: Clear to Ausculation Bilateral, NORMAL BREATHING PATTERN - Cardiovascular Exam Cardiovascular Exam: REGULAR RHYTHM - GI/Abdominal Exam GI & Abdominal Exam: Soft. absent: Tenderness - Neurological Exam Neurological Exam: Alert, Awake - Skin Skin Exam: Dry, Intact Assessment and Plan - Assessment and Plan (Free Text) Assessment: 1) L2 Compression Fracture Continue physical therapy as tolerated Will continue out of bed to chair as tolerated Follow Ortho and neurosurgery recommendations: bed rest and physical therapy No neurosurgical intervention at this time Physical therapy as tolerated Continue Out of bed to chair Imaging: CT confirms acute appearing L2 compression fracture, no retropulsion seen per report. Ill defined soft tissue density seen, ? edema. Would recommend attempt MRI (unsure if patient will tolerate and cooperate) for further visualization. * Neurosurgery Consulted, Dr. Rose. Lumbar XRAY 08/11: - 1. Age indeterminate acute superior endplate compression fracture in the L2 vertebral body with 4 mm retrolisthesis. 2. Mild multilevel degenerative disc disease, worse at L5-S1. see full report. 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 Will continue current psych medications per Dr. Bajwa's recommendations. No recent reported incidences of behavioral disturbances Continue seroquel 50 mg po QD and seroquel 100 mg po HS and depakote sprinkles 125 mg po BID per psych recs Patient off Remeron since 07/31/16. Remeron recommended by psych. However, patient's mood stable. Will add as needed. Will discuss with Dr. Bajwa about how often the behavioral disturbances are occurring in order for further placement into custodial 3) Depression No SI/HI. Monitor Psych Dr. Bajwa consulted, help appreciated. Management as above 4) Chest Pain Resolved. As per Dr. 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 ROMIs negative EKG with LBBB as prior EKGs have also shown Cardio consult - Dr. Marinelli - help appreciated ECHO - left ventricular is normal size. there is mild to moderate concentric left ventricular hypertrophy. the systolic function is midly to moderately impaired. septal hypokinesis. mild to moderate aortic regurgitation. mild pulmonary hypertension. (please see full report) 5) Nodular opacity in chest Pulm consult - Dr. Hayden - help appreciated Chest CT - extensive bilateral fine nodular interstitial infiltrate both lower lobes. dense pleural based consolidation right lower lobe. subpleural emphysema. mild centrilobular pulmonary emphysema. left upper lobe nodules. 7mm and 9mm. reccomend f/u noncontrast chest CT in 3 months. Multiple left upper lobe nodular calcifications, likely granulomatous. probable small airways disease posterior right upper lobe. findings are nonspecific and may reflect infection or inflammatory disease. Patient needs to f/u outpatient per Dr. Hayden for nodular opacity in chest + COPD. 6) COPD Pulm consult - Dr. Hayden - help appreciated Advair and Spiriva 7) DM RISS, accuchecks. Lantus 6U SC HS, Metformin 8) Hypothyroid Continue synthroid 37.5 mcg po qd. 9) Hx of cardiac disease Continue Eliquis, ASA, Crestor. 10) Prophylactic measure Protonix 40 mg PO daily Eliquis 2.5 mg Po BID Social work referral Labs ordered MWF PT recommends DAPHNEY 11) BPH Continue with Flomax Disposition Discharge to rehab facility, pending authorization and acceptance. Need documentations of good behavior. Case discussed with attending Dr. Solis. All management per Dr. Solis. <Pelra Solis - Last Filed: 10/01/16 19:36> Objective - Vital Signs/Intake and Output Vital Signs (last 24 hours): Temp Pulse Resp BP Pulse Ox 98 F 64 21 117/57 L 95 10/01/16 08:44 10/01/16 08:44 10/01/16 08:44 10/01/16 08:44 10/01/16 08:44 Intake and Output: 10/01/16 10/02/16 18:59 06:59 Intake Total 450 Balance 450 - Medications Medications: Current Medications Acetaminophen (Tylenol 325mg Tab) 650 mg PO Q6 PRN PRN Reason: Pain, moderate (4-7) Apixaban (Eliquis) 2.5 mg PO BID [facility] Last Admin: 10/01/16 17:39 Dose: 2.5 mg Aspirin (Aspirin Chewable) 81 mg PO DAILY [facility] Last Admin: 10/01/16 09:18 Dose: 81 mg Calcium Carbonate (Tums) 500 mg PO BID [facility] Last Admin: 10/01/16 17:40 Dose: 500 mg Divalproex Sodium (Depakote Sprinkles) 125 mg PO BID [facility] Last Admin: 10/01/16 17:40 Dose: 125 mg Guaifenesin (Robitussin) 100 mg PO Q4H PRN PRN Reason: Cough Last Admin: 09/28/16 14:30 Dose: 100 mg Insulin Glargine (Lantus) 6 unit SC [facility] Last Admin: 09/30/16 21:22 Dose: 6 units Levothyroxine Sodium (Synthroid) 37.5 mcg PO DAILY@0630 [facility] Last Admin: 10/01/16 05:45 Dose: 37.5 mcg [facility] Last Admin: 10/01/16 17:39 Dose: 1,000 mg Pantoprazole Sodium (Protonix Ec Tab) 40 mg PO DAILY [facility] [place] Last Admin: 10/01/16 09:17 Dose: 40 mg Quetiapine Fumarate (Seroquel) 100 mg PO [facility] Last Admin: 09/30/16 21:22 Dose: 100 mg Quetiapine Fumarate (Seroquel) 50 mg PO DAILY [facility] Last Admin: 10/01/16 09:17 Dose: 50 mg Rosuvastatin Calcium (Crestor) 5 mg PO HS [facility] Last Admin: 09/30/16 21:22 Dose: 5 mg Fluticasone/Salmeterol (Advair Diskus 250/50) 1 puff INH RQ12 [facility] Last Admin: 10/01/16 19:23 Dose: 1 puff Tamsulosin HCl (Flomax) 0.4 mg PO DAILY [facility] Last Admin: 10/01/16 09:17 Dose: 0.4 mg Tiotropium Luna (Spiriva) 18 mcg INH RQ24 [facility] Last Admin: 10/01/16 07:32 Dose: 18 mcg Tramadol HCl (Ultram) 25 mg PO Q6 PRN PRN Reason: mod - severe pain (4-10) Last Admin: 09/19/16 22:23 Dose: 25 mg - Labs Labs: 09/25/16 07:45 09/25/16 07:45 Assessment and Plan (1) Abnormal CXR (chest x-ray) Status: Acute (2) COPD (chronic obstructive pulmonary disease) Status: Acute (3) COPD exacerbation Status: Acute (4) Cardiac disease Status: Acute (5) Depression Status: Acute (6) Diabetes Status: Acute Attending/Attestation - Attestation I have personally seen and examined this patient.: Yes I have fully participated in the care of the patient.: Yes I have reviewed all pertinent clinical information, including history, physical exam and plan: Yes Notes (Text): Case seen and discussed with the staff and resident as agreed
[2016-09-28] MEDS: (Lantus) Insulin Glargine, Recombinant SC SCH (22:25)
[2016-09-29] MEDS: Levothyroxine 75 MCG TAB PO SCH (06:24)
[2016-09-29] MEDS: Tiotropium 18 mcg Cap For Inhalation INH SCH (08:23)
--- NOTE | 2016-09-29 09:22 | CP.PCM.PN ---
<Aroldo Welsh - Last Filed: 09/29/16 11:01> Subjective - Date & Time of Evaluation Date of Evaluation: 09/29/16 Time of Evaluation: 09:21 - Subjective Subjective: Medicine Note for Dr. Solis's Service Pt seen and examined at bedside. He states that he is feeling well. No acute changes reported. As per nursing staff no acute events overnight. Objective - Vital Signs/Intake and Output Vital Signs (last 24 hours): Temp Pulse Resp BP Pulse Ox 97.9 F 68 20 104/59 L 96 09/29/16 07:37 09/29/16 07:37 09/29/16 07:37 09/29/16 07:37 09/29/16 07:37 Intake and Output: 09/29/16 09/29/16 06:59 18:59 Intake Total 150 Balance 150 - Medications Medications: Current Medications Apixaban (Eliquis) 2.5 mg PO BID [facility] Last Admin: 09/28/16 17:23 Dose: 2.5 mg Aspirin (Aspirin Chewable) 81 mg PO DAILY [facility] Last Admin: 09/28/16 09:28 Dose: 81 mg Calcium Carbonate (Tums) 500 mg PO BID [facility] Last Admin: 09/28/16 17:23 Dose: 500 mg Divalproex Sodium (Depakote Sprinkles) 125 mg PO BID [facility] Last Admin: 09/28/16 17:23 Dose: 125 mg Guaifenesin (Robitussin) 100 mg PO Q4H PRN PRN Reason: Cough Last Admin: 09/28/16 14:30 Dose: 100 mg Insulin Glargine (Lantus) 6 unit SC [facility] Last Admin: 09/28/16 22:25 Dose: 6 units Metformin HCl (Glucophage) 1,000 mg PO BIDCC [facility] Last Admin: 09/28/16 17:23 Dose: 1,000 mg Pantoprazole Sodium (Protonix Ec Tab) 40 mg PO DAILY [facility] Last Admin: 09/28/16 09:28 Dose: 40 mg Quetiapine Fumarate (Seroquel) 100 mg PO HS [facility] Last Admin: 09/28/16 21:47 Dose: 100 mg Quetiapine Fumarate (Seroquel) 50 mg PO DAILY [facility] Last Admin: 09/28/16 09:28 Dose: 50 mg Tamsulosin HCl (Flomax) 0.4 mg PO DAILY [facility] Last Admin: 09/28/16 09:28 Dose: 0.4 mg Tiotropium [place] (Spiriva) 18 mcg INH RQ24 [facility] Last Admin: 09/29/16 08:23 Dose: 18 mcg Tramadol HCl (Ultram) 25 mg PO Q6 PRN PRN Reason: mod - severe pain (4-10) Last Admin: 09/19/16 22:23 Dose: 25 mg - Labs Labs: 09/25/16 07:45 09/25/16 07:45 - Constitutional Appears: No Acute Distress - Head Exam Head Exam: ATRAUMATIC - Eye Exam Eye Exam: EOMI, Normal appearance - ENT Exam ENT Exam: Mucous Membranes Moist - Respiratory Exam Respiratory Exam: Clear to Ausculation Bilateral, NORMAL BREATHING PATTERN - Cardiovascular Exam Cardiovascular Exam: REGULAR RHYTHM - GI/Abdominal Exam GI & Abdominal Exam: Soft. absent: Tenderness - Extremities Exam Extremities Exam: absent: Calf Tenderness, Pedal Edema - Neurological Exam Neurological Exam: Alert, Awake - Skin Skin Exam: Dry, Intact Assessment and Plan - Assessment and Plan (Free Text) Plan: 1) L2 Compression Fracture Continue physical therapy as tolerated Will continue out of bed to chair as tolerated Follow Ortho and neurosurgery recommendations: bed rest and physical therapy No neurosurgical intervention at this time Physical therapy as tolerated Continue Out of bed to chair Imaging: CT confirms acute appearing L2 compression fracture, no retropulsion seen per report. Ill defined soft tissue density seen, ? edema. Would recommend attempt MRI (unsure if patient will tolerate and cooperate) for further visualization. * Neurosurgery Consulted, Dr. Rose. Lumbar XRAY 08/11: - 1. Age indeterminate acute superior endplate compression fracture in the L2 vertebral body with 4 mm retrolisthesis. 2. Mild multilevel degenerative disc disease, worse at L5-S1. see full report. 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 Will continue current psych medications per Dr. Bajwa's recommendations. No recent reported incidences of behavioral disturbances Continue seroquel 50 mg po QD and seroquel 100 mg po HS and depakote sprinkles 125 mg po BID per psych recs Patient off Remeron since 07/31/16. Remeron recommended by psych. However, patient's mood stable. Will add as needed. Will discuss with Dr. Bajwa about how often the behavioral disturbances are occurring in order for further placement into [facility] 3) Depression No SI/HI. Monitor Psych Dr. Bajwa consulted, help appreciated. Management as above 4) Chest Pain Resolved. As per Dr. 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 ROMIs negative EKG with LBBB as prior EKGs have also shown Cardio consult - Dr. Marinelli - help appreciated ECHO - left ventricular is normal size. there is mild to moderate concentric left ventricular hypertrophy. the systolic function is midly to moderately impaired. septal hypokinesis. mild to moderate aortic regurgitation. mild pulmonary hypertension. (please see full report) 5) Nodular opacity in chest Pulm consult - Dr. Hayden - help appreciated Chest CT - extensive bilateral fine nodular interstitial infiltrate both lower lobes. dense pleural based consolidation right lower lobe. subpleural emphysema. mild centrilobular pulmonary emphysema. left upper lobe nodules. 7mm and 9mm. reccomend f/u noncontrast chest CT in 3 months. Multiple left upper lobe nodular calcifications, likely granulomatous. probable small airways disease posterior right upper lobe. findings are nonspecific and may reflect infection or inflammatory disease. Patient needs to f/u outpatient per Dr. Hayden for nodular opacity in chest + COPD. 6) COPD Pulm consult - Dr. Hayden - help appreciated Advair and Spiriva 7) DM RISS, accuchecks. Lantus 6U SC HS, Metformin 8) Hypothyroid Continue synthroid 37.5 mcg po qd. 9) Hx of cardiac disease Continue Eliquis, ASA, Crestor. 10) Prophylactic measure Protonix 40 mg PO daily Eliquis 2.5 mg Po BID Social work referral Labs ordered MWF PT recommends DAPHNEY 11) BPH Continue with Flomax Disposition Discharge to rehab facility, pending authorization and acceptance. Need documentations of good behavior. Case discussed with attending Dr. Solis. All management per Dr. Solis. <Perla Solis - Last Filed: 09/29/16 16:42> Objective - Vital Signs/Intake and Output Vital Signs (last 24 hours): Temp Pulse Resp BP Pulse Ox 98.0 F 73 20 103/61 94 L 09/29/16 15:00 09/29/16 15:00 09/29/16 15:00 09/29/16 15:00 09/29/16 15:00 Intake and Output: 09/29/16 09/29/16 06:59 18:59 Intake Total 150 350 Balance 150 350 - Medications Medications: Current Medications Apixaban (Eliquis) 2.5 mg PO BID [facility] Last Admin: 09/29/16 11:13 Dose: 2.5 mg Aspirin (Aspirin Chewable) 81 mg PO DAILY [facility] Last Admin: 09/29/16 11:07 Dose: 81 mg Calcium Carbonate (Tums) 500 mg PO BID [facility] Last Admin: 09/29/16 11:10 Dose: 500 mg Divalproex Sodium (Depakote Sprinkles) 125 mg PO BID [facility] Last Admin: 09/29/16 11:12 Dose: 125 mg Guaifenesin (Robitussin) 100 mg PO Q4H PRN PRN Reason: Cough Last Admin: 09/28/16 14:30 Dose: 100 mg Insulin Glargine (Lantus) 6 unit SC [facility] Last Admin: 09/28/16 22:25 Dose: 6 units [facility] Last Admin: 09/29/16 10:08 Dose: 1,000 mg Pantoprazole Sodium (Protonix Ec Tab) 40 mg PO DAILY [facility] Last Admin: 09/29/16 11:08 Dose: 40 mg Quetiapine Fumarate (Seroquel) 100 mg PO HS [facility] Last Admin: 09/28/16 21:47 Dose: 100 mg Quetiapine Fumarate (Seroquel) 50 mg PO DAILY [facility] Last Admin: 09/29/16 11:08 Dose: 50 mg Tamsulosin HCl (Flomax) 0.4 mg PO DAILY [facility] Last Admin: 09/29/16 11:09 Dose: 0.4 mg Tiotropium [place] (Spiriva) 18 mcg INH RQ24 [facility] Last Admin: 09/29/16 08:23 Dose: 18 mcg Tramadol HCl (Ultram) 25 mg PO Q6 PRN PRN Reason: mod - severe pain (4-10) Last Admin: 09/19/16 22:23 Dose: 25 mg - Labs Labs: 09/25/16 07:45 09/25/16 07:45 Assessment and Plan (1) Abnormal CXR (chest x-ray) Status: Acute (2) COPD (chronic obstructive pulmonary disease) Status: Acute (3) COPD exacerbation Status: Acute (4) Cardiac disease Status: Acute (5) Depression Status: Acute (6) Diabetes Status: Acute Attending/Attestation - Attestation I have personally seen and examined this patient.: Yes I have fully participated in the care of the patient.: Yes I have reviewed all pertinent clinical information, including history, physical exam and plan: Yes Notes (Text): 09/29/16 16:42 case sylvia dover dith staff adn resident pt awaiting for subacute rehab stable back pain and other isues point of view
[2016-09-29] MEDS: Pantoprazole 40 mg EC Tab PO SCH (11:08)
[2016-09-29] MEDS: Calcium Carbonate 500 mg Chewable Antacid Tab PO SCH ×2 (11:10→18:02)
[2016-09-29] MEDS: Divalproex 125 mg Sprinkle Capsule PO SCH ×2 (11:12→18:02)
--- NOTE | 2016-09-29 16:43 | CP.PCM.PN ---
Subjective - Date & Time of Evaluation Date of Evaluation: 09/29/16 Objective - Vital Signs/Intake and Output Vital Signs (last 24 hours): Temp Pulse Resp BP Pulse Ox 98.0 F 73 20 103/61 94 L 09/29/16 15:00 09/29/16 15:00 09/29/16 15:00 09/29/16 15:00 09/29/16 15:00 Intake and Output: 09/29/16 09/29/16 06:59 18:59 Intake Total 150 350 Balance 150 350 - Medications Medications: Current Medications Apixaban (Eliquis) 2.5 mg PO BID [facility] Last Admin: 09/29/16 11:13 Dose: 2.5 mg Aspirin (Aspirin Chewable) 81 mg PO DAILY [facility] Last Admin: 09/29/16 11:07 Dose: 81 mg Calcium Carbonate (Tums) 500 mg PO BID [facility] Last Admin: 09/29/16 11:10 Dose: 500 mg Divalproex Sodium (Depakote Sprinkles) 125 mg PO BID [facility] Last Admin: 09/29/16 11:12 Dose: 125 mg Guaifenesin (Robitussin) 100 mg PO Q4H PRN PRN Reason: Cough Last Admin: 09/28/16 14:30 Dose: 100 mg Insulin Glargine (Lantus) 6 unit SC HS [facility] Last Admin: 09/28/16 22:25 Dose: 6 units Metformin HCl (Glucophage) 1,000 mg PO BIDCC [facility] Last Admin: 09/29/16 10:08 Dose: 1,000 mg Pantoprazole Sodium (Protonix Ec Tab) 40 mg PO DAILY [facility] Last Admin: 09/29/16 11:08 Dose: 40 mg Quetiapine Fumarate (Seroquel) 100 mg PO HS [facility] Last Admin: 09/28/16 21:47 Dose: 100 mg Quetiapine Fumarate (Seroquel) 50 mg PO DAILY [facility] Last Admin: 09/29/16 11:08 Dose: 50 mg Tamsulosin HCl (Flomax) 0.4 mg PO DAILY [facility] Last Admin: 09/29/16 11:09 Dose: 0.4 mg Tiotropium [place] (Spiriva) 18 mcg INH RQ24 [facility] Last Admin: 09/29/16 08:23 Dose: 18 mcg Tramadol HCl (Ultram) 25 mg PO Q6 PRN PRN Reason: mod - severe pain (4-10) Last Admin: 09/19/16 22:23 Dose: 25 mg - Labs Labs: 09/25/16 07:45 09/25/16 07:45 Assessment and Plan (1) Abnormal CXR (chest x-ray) Status: Acute (2) COPD (chronic obstructive pulmonary disease) Status: Acute (3) COPD exacerbation Status: Acute (4) Cardiac disease Status: Acute (5) Depression Status: Acute (6) Diabetes Status: Acute
--- NOTE | 2016-09-29 16:56 | CP.PCM.PN ---
Subjective - Date & Time of Evaluation Date of Evaluation: 09/29/16 Time of Evaluation: 07:00 - Subjective Subjective: clinically same Objective - Vital Signs/Intake and Output Vital Signs (last 24 hours): Temp Pulse Resp BP Pulse Ox 98.0 F 73 20 103/61 94 L 09/29/16 15:00 09/29/16 15:00 09/29/16 15:00 09/29/16 15:00 09/29/16 15:00 Intake and Output: 09/29/16 09/29/16 06:59 18:59 Intake Total 150 350 Balance 150 350 - Medications Medications: Current Medications Apixaban (Eliquis) 2.5 mg PO BID [facility] Last Admin: 09/29/16 11:13 Dose: 2.5 mg Aspirin (Aspirin Chewable) 81 mg PO DAILY [facility] Last Admin: 09/29/16 11:07 Dose: 81 mg Calcium Carbonate (Tums) 500 mg PO BID [facility] Last Admin: 09/29/16 11:10 Dose: 500 mg Divalproex Sodium (Depakote Sprinkles) 125 mg PO BID [facility] Last Admin: 09/29/16 11:12 Dose: 125 mg Guaifenesin (Robitussin) 100 mg PO Q4H PRN PRN Reason: Cough Last Admin: 09/28/16 14:30 Dose: 100 mg Insulin Glargine (Lantus) 6 unit SC HS [facility] Last Admin: 09/28/16 22:25 Dose: 6 units Metformin HCl (Glucophage) 1,000 mg PO BIDCC [facility] Last Admin: 09/29/16 10:08 Dose: 1,000 mg Pantoprazole Sodium (Protonix Ec Tab) 40 mg PO DAILY [facility] Last Admin: 09/29/16 11:08 Dose: 40 mg Quetiapine Fumarate (Seroquel) 100 mg PO HS [facility] Last Admin: 09/28/16 21:47 Dose: 100 mg Quetiapine Fumarate (Seroquel) 50 mg PO DAILY [facility] Last Admin: 09/29/16 11:08 Dose: 50 mg Tamsulosin HCl (Flomax) 0.4 mg PO DAILY [facility] Last Admin: 09/29/16 11:09 Dose: 0.[address] [place] (Spiriva) 18 mcg INH RQ24 [facility] Last Admin: 09/29/16 08:23 Dose: 18 mcg Tramadol HCl (Ultram) 25 mg PO Q6 PRN PRN Reason: mod - severe pain (4-10) Last Admin: 09/19/16 22:23 Dose: 25 mg - Labs Labs: 09/25/16 07:45 09/25/16 07:45 - Constitutional Appears: Well - Head Exam Head Exam: ATRAUMATIC, NORMAL INSPECTION, NORMOCEPHALIC - Eye Exam Eye Exam: EOMI, Normal appearance, PERRL Pupil Exam: NORMAL ACCOMODATION, PERRL - ENT Exam ENT Exam: Mucous Membranes Moist, Normal Exam - Neck Exam Neck Exam: Full ROM, Normal Inspection. absent: Lymphadenopathy - Respiratory Exam Respiratory Exam: Decreased Breath Sounds - Cardiovascular Exam Cardiovascular Exam: REGULAR RHYTHM, +S1, +S2 - GI/Abdominal Exam GI & Abdominal Exam: Soft, Diminished Bowel Sounds - Rectal Exam Rectal Exam: Deferred Assessment and Plan (1) Abnormal CXR (chest x-ray) Status: Acute (2) COPD (chronic obstructive pulmonary disease) Status: Acute (3) COPD exacerbation Status: Acute (4) Cardiac disease Status: Acute (5) Depression Status: Acute (6) Diabetes Status: Acute
[2016-09-29] MEDS: Fluticasone-Salmeterol 250-50mcg Diskus INH SCH (21:49)
[2016-09-29] MEDS: (Lantus) Insulin Glargine, Recombinant SC SCH (22:11)
[2016-09-30] MEDS: Levothyroxine 75 MCG TAB PO SCH ×2 (05:30→06:15)
[2016-09-30] MEDS: Fluticasone-Salmeterol 250-50mcg Diskus INH SCH ×2 (08:14→19:15)
[2016-09-30] MEDS: Tiotropium 18 mcg Cap For Inhalation INH SCH (08:15)
[2016-09-30] MEDS: Pantoprazole 40 mg EC Tab PO SCH (09:48)
[2016-09-30] MEDS: Calcium Carbonate 500 mg Chewable Antacid Tab PO SCH ×2 (09:50→17:21)
[2016-09-30] MEDS: Divalproex 125 mg Sprinkle Capsule PO SCH ×2 (09:50→17:21)
--- NOTE | 2016-09-30 12:17 | CP.PCM.PN ---
<Harris Sim - Last Filed: 09/30/16 17:15> Subjective - Date & Time of Evaluation Date of Evaluation: 09/30/16 Time of Evaluation: 07:30 - Subjective Subjective: PGY-2 Resident Progress Note for Dr. Solis Patient seen and examined at bedside. No reported acute events overnight. Patient resting on chair comfortably with no current complaints. Clinically unchanged. Denies fever, chills, shortness, chest pain, nausea or vomiting. Objective - Vital Signs/Intake and Output Vital Signs (last 24 hours): Temp Pulse Resp BP Pulse Ox 98.3 F 79 20 120/70 96 09/30/16 07:00 09/30/16 07:00 09/30/16 07:00 09/30/16 07:00 09/30/16 07:00 Intake and Output: 09/30/16 09/30/16 06:59 18:59 Intake Total 550 Balance 550 - Medications Medications: Current Medications Acetaminophen (Tylenol 325mg Tab) 650 mg PO Q6 PRN PRN Reason: Pain, moderate (4-7) Apixaban (Eliquis) 2.5 mg PO BID [facility] Last Admin: 09/30/16 09:50 Dose: 2.5 mg Aspirin (Aspirin Chewable) 81 mg PO DAILY [facility] Last Admin: 09/30/16 09:48 Dose: 81 mg Calcium Carbonate (Tums) 500 mg PO BID [facility] Last Admin: 09/30/16 09:50 Dose: 500 mg Divalproex Sodium (Depakote Sprinkles) 125 mg PO BID [facility] Last Admin: 09/30/16 09:50 Dose: 125 mg Guaifenesin (Robitussin) 100 mg PO Q4H PRN PRN Reason: Cough Last Admin: 09/28/16 14:30 Dose: 100 mg Insulin Glargine (Lantus) 6 unit SC HS [facility] Last Admin: 09/29/16 22:11 Dose: 6 units Levothyroxine Sodium (Synthroid) 37.5 mcg PO DAILY@0630 [facility] Last Admin: 09/30/16 06:15 Dose: 37.5 mcg Metformin HCl (Glucophage) 1,000 mg PO BIDCC [facility] Last Admin: 09/30/16 09:48 Dose: 1,000 mg Pantoprazole Sodium (Protonix Ec Tab) 40 mg PO DAILY [facility] Last Admin: 09/30/16 09:48 Dose: 40 mg Quetiapine Fumarate (Seroquel) 100 mg PO HS [facility] Last Admin: 09/29/16 21:53 Dose: 100 mg Quetiapine Fumarate (Seroquel) 50 mg PO DAILY [facility] Last Admin: 09/30/16 09:48 Dose: 50 mg Rosuvastatin Calcium (Crestor) 5 mg PO HS [facility] Last Admin: 09/29/16 21:53 Dose: 5 mg Fluticasone/Salmeterol (Advair Diskus 250/50) 1 puff INH RQ12 [facility] Last Admin: 09/30/16 08:14 Dose: 1 puff Tamsulosin HCl (Flomax) 0.4 mg PO DAILY [facility] Last Admin: 09/30/16 09:48 Dose: 0.4 mg Tiotropium [place] (Spiriva) 18 mcg INH RQ24 [facility] Last Admin: 09/30/16 08:15 Dose: 18 mcg Tramadol HCl (Ultram) 25 mg PO Q6 PRN PRN Reason: mod - severe pain (4-10) Last Admin: 09/19/16 22:23 Dose: 25 mg - Labs Labs: 09/25/16 07:45 09/25/16 07:45 - Constitutional Appears: Non-toxic, No Acute Distress - Head Exam Head Exam: ATRAUMATIC, NORMAL INSPECTION - Eye Exam Eye Exam: Normal appearance - ENT Exam ENT Exam: Mucous Membranes Moist - Neck Exam Neck Exam: Normal Inspection - Respiratory Exam Respiratory Exam: Clear to Ausculation Bilateral, NORMAL BREATHING PATTERN. absent: Respiratory Distress - Cardiovascular Exam Cardiovascular Exam: REGULAR RHYTHM, +S1, +S2. absent: Murmur - GI/Abdominal Exam GI & Abdominal Exam: Soft, Normal Bowel Sounds. absent: Tenderness - Neurological Exam Neurological Exam: Alert, Awake - Skin Skin Exam: Dry, Intact Assessment and Plan - Assessment and Plan (Free Text) Assessment: 1) L2 Compression Fracture Continue physical therapy as tolerated Will continue out of bed to chair as tolerated Follow Ortho and neurosurgery recommendations: bed rest and physical therapy No neurosurgical intervention at this time Physical therapy as tolerated Continue Out of bed to chair Imaging: CT confirms acute appearing L2 compression fracture, no retropulsion seen per report. Ill defined soft tissue density seen, ? edema. Would recommend attempt MRI (unsure if patient will tolerate and cooperate) for further visualization. * Neurosurgery Consulted, Dr. Rose. Lumbar XRAY 08/11: - 1. Age indeterminate acute superior endplate compression fracture in the L2 vertebral body with 4 mm retrolisthesis. 2. Mild multilevel degenerative disc disease, worse at L5-S1. see full report. 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 Will continue current psych medications per Dr. Bajwa's recommendations. No recent reported incidences of behavioral disturbances Continue seroquel 50 mg po QD and seroquel 100 mg po HS and depakote sprinkles 125 mg po BID per psych recs Patient off Remeron since 07/31/16. Remeron recommended by psych. However, patient's mood stable. Will add as needed. Will discuss with Dr. Bajwa about how often the behavioral disturbances are occurring [facility] 3) Depression No SI/HI. Monitor Psych Dr. Bajwa consulted, help appreciated. Management as above 4) Chest Pain Resolved. As per Dr. Marinelli, likely secondary to INDIVIDUAL PENSION CONSULTANT as per consult 07/23/16. ROMIs negative EKG with LBBB as prior EKGs have also shown Cardio consult - Dr. Marinelli - help appreciated ECHO - left ventricular is normal size. there is mild to moderate concentric left ventricular hypertrophy. the systolic function is midly to moderately impaired. septal hypokinesis. mild to moderate aortic regurgitation. mild pulmonary hypertension. (please see full report) 5) Nodular opacity in chest Pulm consult - Dr. Hayden - help appreciated Chest CT - extensive bilateral fine nodular interstitial infiltrate both lower lobes. dense pleural based consolidation right lower lobe. subpleural emphysema. mild centrilobular pulmonary emphysema. left upper lobe nodules. 7mm and 9mm. reccomend f/u noncontrast chest CT in 3 months. Multiple left upper lobe nodular calcifications, likely granulomatous. probable small airways disease posterior right upper lobe. findings are nonspecific and may reflect infection or inflammatory disease. Patient needs to f/u outpatient per Dr. Hayden for nodular opacity in chest + COPD. 6) COPD Pulm consult - Dr. Hayden - help appreciated Advair and Spiriva 7) DM RISS, accuchecks. Lantus 6U SC HS, Metformin 8) Hypothyroid Continue synthroid 37.5 mcg po qd. 9) Hx of cardiac disease Continue Eliquis, ASA, Crestor. 10) Prophylactic measure Protonix 40 mg PO daily Eliquis 2.5 mg Po BID Social work referral Labs ordered MWF PT recommends DAPHNEY 11) BPH Continue with Flomax Disposition Discharge to rehab facility, pending authorization and acceptance. Need documentations of good behavior. Case management aware. Case discussed with attending Dr. Solis. All management per Dr. Solis. <Perla Solis - Last Filed: 10/01/16 19:36> Objective - Vital Signs/Intake and Output Vital Signs (last 24 hours): Temp Pulse Resp BP Pulse Ox 98 F 64 21 117/57 L 95 10/01/16 08:44 10/01/16 08:44 10/01/16 08:44 10/01/16 08:44 10/01/16 08:44 Intake and Output: 10/01/16 10/02/16 18:59 06:59 Intake Total 450 Balance 450 - Medications Medications: Current Medications Acetaminophen (Tylenol 325mg Tab) 650 mg PO Q6 PRN PRN Reason: Pain, moderate (4-7) Apixaban (Eliquis) 2.5 mg PO BID [facility] Last Admin: 10/01/16 17:39 Dose: 2.5 mg Aspirin (Aspirin Chewable) 81 mg PO DAILY [facility] Last Admin: 10/01/16 09:18 Dose: 81 mg Calcium Carbonate (Tums) 500 mg PO BID [facility] Last Admin: 10/01/16 17:40 Dose: 500 mg Divalproex Sodium (Depakote Sprinkles) 125 mg PO BID [facility] Last Admin: 10/01/16 17:40 Dose: 125 mg Guaifenesin (Robitussin) 100 mg PO Q4H PRN PRN Reason: Cough Last Admin: 09/28/16 14:30 Dose: 100 mg Insulin Glargine (Lantus) 6 unit SC HS [facility] Last Admin: 09/30/16 21:22 Dose: 6 units Levothyroxine Sodium (Synthroid) 37.5 mcg PO DAILY@0630 [facility] Last Admin: 10/01/16 05:45 Dose: 37.5 mcg Metformin HCl (Glucophage) 1,000 mg PO BIDCC [facility] Last Admin: 10/01/16 17:39 Dose: 1,000 mg Pantoprazole Sodium (Protonix Ec Tab) 40 mg PO DAILY [facility] Last Admin: 10/01/16 09:17 Dose: 40 mg Quetiapine Fumarate (Seroquel) 100 mg PO HS [facility] Last Admin: 09/30/16 21:22 Dose: 100 mg Quetiapine Fumarate (Seroquel) 50 mg PO DAILY [facility] Last Admin: 10/01/16 09:17 Dose: 50 mg Rosuvastatin Calcium (Crestor) 5 mg PO HS [facility] Last Admin: 09/30/16 21:22 Dose: 5 mg Fluticasone/Salmeterol (Advair Diskus 250/50) 1 puff INH RQ12 [facility] Last Admin: 10/01/16 19:23 Dose: 1 puff Tamsulosin HCl (Flomax) 0.4 mg PO DAILY [facility] Last Admin: 10/01/16 09:17 Dose: 0.4 mg Tiotropium Victor (Spiriva) 18 mcg INH RQ24 [facility] Last Admin: 10/01/16 07:32 Dose: 18 mcg Tramadol HCl (Ultram) 25 mg PO Q6 PRN PRN Reason: mod - severe pain (4-10) Last Admin: 09/19/16 22:23 Dose: 25 mg - Labs Labs: 09/25/16 07:45 09/25/16 07:45 Assessment and Plan (1) Abnormal CXR (chest x-ray) Status: Acute (2) COPD (chronic obstructive pulmonary disease) Status: Acute (3) COPD exacerbation Status: Acute (4) Cardiac disease Status: Acute (5) Depression Status: Acute (6) Diabetes Status: Acute Attending/Attestation - Attestation I have personally seen and examined this patient.: Yes I have fully participated in the care of the patient.: Yes I have reviewed all pertinent clinical information, including history, physical exam and plan: Yes Notes (Text): 09/30/16 19:35 Case seen and discussed with the staff and resident no new complaints L2 compression fracture depression dementia no behavioral issues right now
--- NOTE | 2016-09-30 13:26 | CP.PCM.PN ---
Subjective - Date & Time of Evaluation Date of Evaluation: 09/30/16 Time of Evaluation: 07:00 - Subjective Subjective: clinically same Objective - Vital Signs/Intake and Output Vital Signs (last 24 hours): Temp Pulse Resp BP Pulse Ox 98.3 F 79 20 120/70 96 09/30/16 07:00 09/30/16 07:00 09/30/16 07:00 09/30/16 07:00 09/30/16 07:00 Intake and Output: 09/30/16 09/30/16 06:59 18:59 Intake Total 550 Balance 550 - Medications Medications: Current Medications Acetaminophen (Tylenol 325mg Tab) 650 mg PO Q6 PRN PRN Reason: Pain, moderate (4-7) Apixaban (Eliquis) 2.5 mg PO BID [facility] Last Admin: 09/30/16 09:50 Dose: 2.5 mg Aspirin (Aspirin Chewable) 81 mg PO DAILY [facility] Last Admin: 09/30/16 09:48 Dose: 81 mg Calcium Carbonate (Tums) 500 mg PO BID [facility] Last Admin: 09/30/16 09:50 Dose: 500 mg Divalproex Sodium (Depakote Sprinkles) 125 mg PO BID [facility] Last Admin: 09/30/16 09:50 Dose: 125 mg Guaifenesin (Robitussin) 100 mg PO Q4H PRN PRN Reason: Cough Last Admin: 09/28/16 14:30 Dose: 100 mg Insulin Glargine (Lantus) 6 unit SC HS [facility] Last Admin: 09/29/16 22:11 Dose: 6 units Levothyroxine Sodium (Synthroid) 37.5 mcg PO DAILY@0630 [facility] Last Admin: 09/30/16 06:15 Dose: 37.5 mcg Metformin HCl (Glucophage) 1,000 mg PO BIDCC [facility] Last Admin: 09/30/16 09:48 Dose: 1,000 mg Pantoprazole Sodium (Protonix Ec Tab) 40 mg PO DAILY [facility] Last Admin: 09/30/16 09:48 Dose: 40 mg Quetiapine Fumarate (Seroquel) 100 mg PO HS [facility] Last Admin: 09/29/16 21:53 Dose: 100 mg Quetiapine Fumarate (Seroquel) 50 mg PO DAILY [facility] Last Admin: 09/30/16 09:48 Dose: 50 mg Rosuvastatin Calcium (Crestor) 5 mg PO HS [facility] Last Admin: 09/29/16 21:53 Dose: 5 mg Fluticasone/Salmeterol (Advair Diskus 250/50) 1 puff INH RQ12 [facility] Last Admin: 09/30/16 08:14 Dose: 1 puff Tamsulosin HCl (Flomax) 0.4 mg PO DAILY [facility] Last Admin: 09/30/16 09:48 Dose: 0.4 mg Tiotropium [place] (Spiriva) 18 mcg INH RQ24 [facility] Last Admin: 09/30/16 08:15 Dose: 18 mcg Tramadol HCl (Ultram) 25 mg PO Q6 PRN PRN Reason: mod - severe pain (4-10) Last Admin: 09/19/16 22:23 Dose: 25 mg - Labs Labs: 09/25/16 07:45 09/25/16 07:45 - Constitutional Appears: Well - Head Exam Head Exam: ATRAUMATIC, NORMAL INSPECTION, NORMOCEPHALIC - Eye Exam Eye Exam: EOMI, Normal appearance, PERRL Pupil Exam: NORMAL ACCOMODATION, PERRL - ENT Exam ENT Exam: Mucous Membranes Moist, Normal Exam - Neck Exam Neck Exam: Full ROM, Normal Inspection. absent: Lymphadenopathy - Respiratory Exam Respiratory Exam: Decreased Breath Sounds - Cardiovascular Exam Cardiovascular Exam: REGULAR RHYTHM, +S1, +S2 - GI/Abdominal Exam GI & Abdominal Exam: Soft, Diminished Bowel Sounds - Rectal Exam Rectal Exam: Deferred Assessment and Plan (1) Abnormal CXR (chest x-ray) Status: Acute (2) COPD (chronic obstructive pulmonary disease) Status: Acute (3) COPD exacerbation Status: Acute (4) Cardiac disease Status: Acute (5) Depression Status: Acute (6) Diabetes Status: Acute
[2016-09-30] MEDS: (Lantus) Insulin Glargine, Recombinant SC SCH (21:22)
[2016-10-01] MEDS: Levothyroxine 75 MCG TAB PO SCH (05:45)
[2016-10-01] MEDS: Fluticasone-Salmeterol 250-50mcg Diskus INH SCH ×2 (07:31→19:23)
[2016-10-01] MEDS: Tiotropium 18 mcg Cap For Inhalation INH SCH (07:32)
--- NOTE | 2016-10-01 07:56 | CP.PCM.PN ---
<Steve Warren - Last Filed: 10/01/16 14:28> Subjective - Date & Time of Evaluation Date of Evaluation: 10/01/16 Time of Evaluation: 09:00 - Subjective Subjective: PGY3 on medicine Dr. Solis service: Pt seen and examined at bedside. Pt has no acute complaints at the moment. Clinically unchanged. Objective - Vital Signs/Intake and Output Vital Signs (last 24 hours): Temp Pulse Resp BP Pulse Ox 98 F 75 20 108/63 96 09/30/16 23:35 09/30/16 23:35 09/30/16 23:35 09/30/16 23:35 09/30/16 23:35 Intake and Output: 10/01/16 10/01/16 06:59 18:59 Intake Total 200 Output Total 300 Balance -100 - Medications Medications: Current Medications Acetaminophen (Tylenol 325mg Tab) 650 mg PO Q6 PRN PRN Reason: Pain, moderate (4-7) Apixaban (Eliquis) 2.5 mg PO BID [facility] Last Admin: 09/30/16 17:21 Dose: 2.5 mg Aspirin (Aspirin Chewable) 81 mg PO DAILY [facility] Last Admin: 09/30/16 09:48 Dose: 81 mg Calcium Carbonate (Tums) 500 mg PO BID [facility] Last Admin: 09/30/16 17:21 Dose: 500 mg Divalproex Sodium (Depakote Sprinkles) 125 mg PO BID [facility] Last Admin: 09/30/16 17:21 Dose: 125 mg Guaifenesin (Robitussin) 100 mg PO Q4H PRN PRN Reason: Cough Last Admin: 09/28/16 14:30 Dose: 100 mg Insulin Glargine (Lantus) 6 unit SC [facility] Last Admin: 09/30/16 21:22 Dose: 6 units Levothyroxine Sodium (Synthroid) 37.5 mcg PO DAILY@0630 [facility] Last Admin: 10/01/16 05:45 Dose: 37.5 mcg [facility] Last Admin: 09/30/16 17:21 Dose: 1,000 mg Pantoprazole Sodium (Protonix Ec Tab) 40 mg PO DAILY [facility] Last Admin: 09/30/16 09:48 Dose: 40 mg Quetiapine Fumarate (Seroquel) 100 mg PO [facility] Last Admin: 09/30/16 21:22 Dose: 100 mg Quetiapine Fumarate (Seroquel) 50 mg PO DAILY [facility] Last Admin: 09/30/16 09:48 Dose: 50 mg Rosuvastatin Calcium (Crestor) 5 mg PO HS [facility] Last Admin: 09/30/16 21:22 Dose: 5 mg Fluticasone/Salmeterol (Advair Diskus 250/50) 1 puff INH RQ12 [facility] Last Admin: 10/01/16 07:31 Dose: 1 puff Tamsulosin HCl (Flomax) 0.4 mg PO DAILY [facility] Last Admin: 09/30/16 09:48 Dose: 0.4 mg Tiotropium [place] (Spiriva) 18 mcg INH RQ24 [facility] Last Admin: 10/01/16 07:32 Dose: 18 mcg Tramadol HCl (Ultram) 25 mg PO Q6 PRN PRN Reason: mod - severe pain (4-10) Last Admin: 09/19/16 22:23 Dose: 25 mg - Labs Labs: 09/25/16 07:45 09/25/16 07:45 - Constitutional Appears: Non-toxic, No Acute Distress, Chronically Ill - Head Exam Head Exam: NORMOCEPHALIC - Eye Exam Eye Exam: Normal appearance Pupil Exam: NORMAL ACCOMODATION - ENT Exam ENT Exam: Mucous Membranes Moist - Respiratory Exam Respiratory Exam: Clear to Ausculation Bilateral, NORMAL BREATHING PATTERN. absent: Rales, Rhonchi, Wheezes - Cardiovascular Exam Cardiovascular Exam: REGULAR RHYTHM, +S1, +S2. absent: Gallop, Rubs - GI/Abdominal Exam GI & Abdominal Exam: Soft, Normal Bowel Sounds - Neurological Exam Neurological Exam: Alert, Awake, Oriented x3 - Psychiatric Exam Psychiatric exam: Normal Mood - Skin Skin Exam: Intact Assessment and Plan - Assessment and Plan (Free Text) Assessment: 1) L2 Compression Fracture Continue physical therapy as tolerated Will continue out of bed to chair as tolerated Follow Ortho and neurosurgery recommendations: bed rest and physical therapy No neurosurgical intervention at this time Physical therapy as tolerated Continue Out of bed to chair Imaging: CT confirms acute appearing L2 compression fracture, no retropulsion seen per report. Ill defined soft tissue density seen, ? edema. Would recommend attempt MRI (unsure if patient will tolerate and cooperate) for further visualization. * Neurosurgery Consulted, Dr. Rose. Lumbar XRAY 08/11: - 1. Age indeterminate acute superior endplate compression fracture in the L2 vertebral body with 4 mm retrolisthesis. 2. Mild multilevel degenerative disc disease, worse at L5-S1. see full report. 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 Will continue current psych medications per Dr. Bajwa's recommendations. No recent reported incidences of behavioral disturbances Continue seroquel 50 mg po QD and seroquel 100 mg po HS and depakote sprinkles 125 mg po BID per psych recs Patient off Remeron since 07/31/16. Remeron recommended by psych. However, patient's mood stable. Will add as needed. Will discuss with Dr. Bajwa about how often the behavioral disturbances are occurring in order for further placement into group home 3) Depression No SI/HI. Monitor Psych Dr. Bajwa consulted, help appreciated. Management as above 4) Chest Pain Resolved. As per Dr. Marinelli, likely secondary to ASSET MANAGEMENT COORDINATOR as per consult 07/23/16. ROMIs negative EKG with LBBB as prior EKGs have also shown Cardio consult - Dr. Marinelli - help appreciated ECHO - left ventricular is normal size. there is mild to moderate concentric left ventricular hypertrophy. the systolic function is midly to moderately impaired. septal hypokinesis. mild to moderate aortic regurgitation. mild pulmonary hypertension. (please see full report) 5) Nodular opacity in chest Pulm consult - Dr. Hayden - help appreciated Chest CT - extensive bilateral fine nodular interstitial infiltrate both lower lobes. dense pleural based consolidation right lower lobe. subpleural emphysema. mild centrilobular pulmonary emphysema. left upper lobe nodules. 7mm and 9mm. reccomend f/u noncontrast chest CT in 3 months. Multiple left upper lobe nodular calcifications, likely granulomatous. probable small airways disease posterior right upper lobe. findings are nonspecific and may reflect infection or inflammatory disease. Patient needs to f/u outpatient per Dr. Hayden for nodular opacity in chest + COPD. 6) COPD Pulm consult - Dr. Hayden - help appreciated Advair and Spiriva 7) DM RISS, accuchecks. Lantus 6U SC HS, Metformin 8) Hypothyroid Continue synthroid 37.5 mcg po qd. 9) Hx of cardiac disease Continue Eliquis, ASA, Crestor. 10) Prophylactic measure Protonix 40 mg PO daily Eliquis 2.5 mg Po BID Social work referral Labs ordered MWF PT recommends DAPHNEY 11) BPH Continue with Flomax Disposition Discharge to rehab facility, pending authorization and acceptance. Need documentations of good behavior. Case management aware. Case discussed with attending Dr. Solis. All management per Dr. Solis. <Perla Solis - Last Filed: 10/01/16 19:35> Objective - Vital Signs/Intake and Output Vital Signs (last 24 hours): Temp Pulse Resp BP Pulse Ox 98 F 64 21 117/57 L 95 10/01/16 08:44 10/01/16 08:44 10/01/16 08:44 10/01/16 08:44 10/01/16 08:44 Intake and Output: 10/01/16 10/02/16 18:59 06:59 Intake Total 450 Balance 450 - Medications Medications: Current Medications Acetaminophen (Tylenol 325mg Tab) 650 mg PO Q6 PRN PRN Reason: Pain, moderate (4-7) Apixaban (Eliquis) 2.5 mg PO BID [facility] Last Admin: 10/01/16 17:39 Dose: 2.5 mg Aspirin (Aspirin Chewable) 81 mg PO DAILY [facility] Last Admin: 10/01/16 09:18 Dose: 81 mg Calcium Carbonate (Tums) 500 mg PO BID [facility] Last Admin: 10/01/16 17:40 Dose: 500 mg Divalproex Sodium (Depakote Sprinkles) 125 mg PO BID [facility] Last Admin: 10/01/16 17:40 Dose: 125 mg Guaifenesin (Robitussin) 100 mg PO Q4H PRN PRN Reason: Cough Last Admin: 09/28/16 14:30 Dose: 100 mg Insulin Glargine (Lantus) 6 unit SC HS [facility] Last Admin: 09/30/16 21:22 Dose: 6 units Levothyroxine Sodium (Synthroid) 37.5 mcg PO DAILY@0630 [facility] Last Admin: 10/01/16 05:45 Dose: 37.5 mcg Metformin HCl (Glucophage) 1,000 mg PO BIDCC [facility] Last Admin: 10/01/16 17:39 Dose: 1,000 mg Pantoprazole Sodium (Protonix Ec Tab) 40 mg PO DAILY [facility] Last Admin: 10/01/16 09:17 Dose: 40 mg Quetiapine Fumarate (Seroquel) 100 mg PO HS [facility] Last Admin: 09/30/16 21:22 Dose: 100 mg Quetiapine Fumarate (Seroquel) 50 mg PO DAILY [facility] Last Admin: 10/01/16 09:17 Dose: 50 mg Rosuvastatin Calcium (Crestor) 5 mg PO HS [facility] Last Admin: 09/30/16 21:22 Dose: 5 mg Fluticasone/Salmeterol (Advair Diskus 250/50) 1 puff INH RQ12 [facility] Last Admin: 10/01/16 19:23 Dose: 1 puff Tamsulosin HCl (Flomax) 0.4 mg PO DAILY [facility] Last Admin: 10/01/16 09:17 Dose: 0.4 mg Tiotropium [place] (Spiriva) 18 mcg INH RQ24 [facility] Last Admin: 10/01/16 07:32 Dose: 18 mcg Tramadol HCl (Ultram) 25 mg PO Q6 PRN PRN Reason: mod - severe pain (4-10) Last Admin: 09/19/16 22:23 Dose: 25 mg - Labs Labs: 09/25/16 07:45 09/25/16 07:45 Assessment and Plan (1) Abnormal CXR (chest x-ray) Status: Acute (2) COPD (chronic obstructive pulmonary disease) Status: Acute (3) COPD exacerbation Status: Acute (4) Cardiac disease Status: Acute (5) Depression Status: Acute (6) Diabetes Status: Acute Attending/Attestation - Attestation I have personally seen and examined this patient.: Yes I have fully participated in the care of the patient.: Yes I have reviewed all pertinent clinical information, including history, physical exam and plan: Yes Notes (Text): 10/01/16 19:35 Case seen and discussed with the staff and resident
[2016-10-01] MEDS: Calcium Carbonate 500 mg Chewable Antacid Tab PO SCH ×2 (09:17→17:40)
[2016-10-01] MEDS: Pantoprazole 40 mg EC Tab PO SCH (09:17)
[2016-10-01] MEDS: Divalproex 125 mg Sprinkle Capsule PO SCH ×2 (09:18→17:40)
--- NOTE | 2016-10-01 16:26 | CP.PCM.PN ---
Subjective - Date & Time of Evaluation Date of Evaluation: 10/01/16 Time of Evaluation: 07:00 - Subjective Subjective: clinically same Objective - Vital Signs/Intake and Output Vital Signs (last 24 hours): Temp Pulse Resp BP Pulse Ox 98 F 64 21 117/57 L 95 10/01/16 08:44 10/01/16 08:44 10/01/16 08:44 10/01/16 08:44 10/01/16 08:44 Intake and Output: 10/01/16 10/01/16 06:59 18:59 Intake Total 200 450 Output Total 300 Balance -100 450 - Medications Medications: Current Medications Acetaminophen (Tylenol 325mg Tab) 650 mg PO Q6 PRN PRN Reason: Pain, moderate (4-7) Apixaban (Eliquis) 2.5 mg PO BID [facility] Last Admin: 10/01/16 09:18 Dose: 2.5 mg Aspirin (Aspirin Chewable) 81 mg PO DAILY [facility] Last Admin: 10/01/16 09:18 Dose: 81 mg Calcium Carbonate (Tums) 500 mg PO BID [facility] Last Admin: 10/01/16 09:17 Dose: 500 mg Divalproex Sodium (Depakote Sprinkles) 125 mg PO BID [facility] Last Admin: 10/01/16 09:18 Dose: 125 mg Guaifenesin (Robitussin) 100 mg PO Q4H PRN PRN Reason: Cough Last Admin: 09/28/16 14:30 Dose: 100 mg Insulin Glargine (Lantus) 6 unit SC HS [facility] Last Admin: 09/30/16 21:22 Dose: 6 units Levothyroxine Sodium (Synthroid) 37.5 mcg PO DAILY@0630 [facility] Last Admin: 10/01/16 05:45 Dose: 37.5 mcg Metformin HCl (Glucophage) 1,000 mg PO BIDCC [facility] Last Admin: 10/01/16 08:45 Dose: 1,000 mg Pantoprazole Sodium (Protonix Ec Tab) 40 mg PO DAILY [facility] Last Admin: 10/01/16 09:17 Dose: 40 mg Quetiapine Fumarate (Seroquel) 100 mg PO HS [facility] Last Admin: 09/30/16 21:22 Dose: 100 mg Quetiapine Fumarate (Seroquel) 50 mg PO DAILY [facility] Last Admin: 10/01/16 09:17 Dose: 50 mg Rosuvastatin Calcium (Crestor) 5 mg PO HS [facility] Last Admin: 09/30/16 21:22 Dose: 5 mg Fluticasone/Salmeterol (Advair Diskus 250/50) 1 puff INH RQ12 [facility] Last Admin: 10/01/16 07:31 Dose: 1 puff Tamsulosin HCl (Flomax) 0.4 mg PO DAILY [facility] Last Admin: 10/01/16 09:17 Dose: 0.4 mg Tiotropium [place] (Spiriva) 18 mcg INH RQ24 [facility] Last Admin: 10/01/16 07:32 Dose: 18 mcg Tramadol HCl (Ultram) 25 mg PO Q6 PRN PRN Reason: mod - severe pain (4-10) Last Admin: 09/19/16 22:23 Dose: 25 mg - Labs Labs: 09/25/16 07:45 09/25/16 07:45 - Constitutional Appears: Well - Head Exam Head Exam: ATRAUMATIC, NORMAL INSPECTION, NORMOCEPHALIC - Eye Exam Eye Exam: EOMI, Normal appearance, PERRL Pupil Exam: NORMAL ACCOMODATION, PERRL - ENT Exam ENT Exam: Mucous Membranes Moist, Normal Exam - Neck Exam Neck Exam: Full ROM, Normal Inspection. absent: Lymphadenopathy - Respiratory Exam Respiratory Exam: Decreased Breath Sounds - Cardiovascular Exam Cardiovascular Exam: REGULAR RHYTHM, +S1, +S2 - GI/Abdominal Exam GI & Abdominal Exam: Soft, Diminished Bowel Sounds - Rectal Exam Rectal Exam: Deferred Assessment and Plan (1) Abnormal CXR (chest x-ray) Status: Acute (2) COPD (chronic obstructive pulmonary disease) Status: Acute (3) COPD exacerbation Status: Acute (4) Cardiac disease Status: Acute (5) Depression Status: Acute (6) Diabetes Status: Acute
[2016-10-01] MEDS: (Lantus) Insulin Glargine, Recombinant SC SCH (21:29)
[2016-10-02] MEDS: Levothyroxine 75 MCG TAB PO SCH (05:30)
[2016-10-02] MEDS: Tiotropium 18 mcg Cap For Inhalation INH SCH (07:10)
[2016-10-02] MEDS: Fluticasone-Salmeterol 250-50mcg Diskus INH SCH ×2 (07:10→19:25)
[2016-10-02] MEDS: Calcium Carbonate 500 mg Chewable Antacid Tab PO SCH ×3 (08:31→18:05)
[2016-10-02] MEDS: Divalproex 125 mg Sprinkle Capsule PO SCH ×3 (08:31→18:04)
[2016-10-02] MEDS: Pantoprazole 40 mg EC Tab PO SCH ×2 (08:32→11:50)
--- NOTE | 2016-10-02 15:13 | CP.PCM.PN ---
Subjective - Date & Time of Evaluation Date of Evaluation: 10/02/16 Time of Evaluation: 10:00 - Subjective Subjective: PGY2 Resident Progress Note Patient seen and examined at bedside. No reported acute events overnight. Patient does not have any complaints currently. Clinically unchanged. Denies fever, chills, shortness, chest pain, nausea or vomiting. Objective - Vital Signs/Intake and Output Vital Signs (last 24 hours): Temp Pulse Resp BP Pulse Ox 98.2 F 71 20 108/63 96 10/02/16 07:55 10/02/16 07:55 10/02/16 07:55 10/02/16 07:55 10/02/16 07:55 Intake and Output: 10/02/16 10/02/16 06:59 18:59 Intake Total 500 Output Total 500 Balance 0 - Medications Medications: Current Medications Acetaminophen (Tylenol 325mg Tab) 650 mg PO Q6 PRN PRN Reason: Pain, moderate (4-7) Apixaban (Eliquis) 2.5 mg PO BID [facility] Last Admin: 10/02/16 11:49 Dose: Not Given Aspirin (Aspirin Chewable) 81 mg PO DAILY [facility] Last Admin: 10/02/16 11:49 Dose: Not Given Calcium Carbonate (Tums) 500 mg PO BID [facility] Last Admin: 10/02/16 11:50 Dose: Not Given Divalproex Sodium (Depakote Sprinkles) 125 mg PO BID [facility] Last Admin: 10/02/16 11:49 Dose: Not Given Guaifenesin (Robitussin) 100 mg PO Q4H PRN PRN Reason: Cough Last Admin: 09/28/16 14:30 Dose: 100 mg Insulin Glargine (Lantus) 6 unit SC [facility] Last Admin: 10/01/16 21:29 Dose: 6 units Levothyroxine Sodium (Synthroid) 37.5 mcg PO DAILY@0630 [facility] Last Admin: 10/02/16 05:30 Dose: 37.5 mcg [facility] Last Admin: 10/02/16 08:30 Dose: 1,000 mg Pantoprazole Sodium (Protonix Ec Tab) 40 mg PO DAILY [facility] Last Admin: 10/02/16 11:50 Dose: Not Given Quetiapine Fumarate (Seroquel) 100 mg PO [facility] Last Admin: 10/01/16 21:36 Dose: 100 mg Quetiapine Fumarate (Seroquel) 50 mg PO DAILY [facility] Last Admin: 10/02/16 11:50 Dose: Not Given Rosuvastatin Calcium (Crestor) 5 mg PO [facility] Last Admin: 10/01/16 21:29 Dose: 5 mg Fluticasone/Salmeterol (Advair Diskus 250/50) 1 puff INH RQ12 [facility] Last Admin: 10/02/16 07:10 Dose: 1 puff Tamsulosin HCl (Flomax) 0.4 mg PO DAILY [facility] Last Admin: 10/02/16 11:49 Dose: Not Given Tiotropium [place] (Spiriva) 18 mcg INH RQ24 [facility] Last Admin: 10/02/16 07:10 Dose: 18 mcg Tramadol HCl (Ultram) 25 mg PO Q6 PRN PRN Reason: mod - severe pain (4-10) Last Admin: 09/19/16 22:23 Dose: 25 mg - Labs Labs: 09/25/16 07:45 09/25/16 07:45 - Constitutional Appears: Non-toxic, No Acute Distress, Chronically Ill - Head Exam Head Exam: NORMOCEPHALIC - Eye Exam Eye Exam: Normal appearance Pupil Exam: NORMAL ACCOMODATION - ENT Exam ENT Exam: Mucous Membranes Moist - Neck Exam Neck Exam: Normal Inspection - Respiratory Exam Respiratory Exam: Clear to Ausculation Bilateral, NORMAL BREATHING PATTERN. absent: Respiratory Distress - Cardiovascular Exam Cardiovascular Exam: REGULAR RHYTHM, +S1, +S2. absent: Murmur - GI/Abdominal Exam GI & Abdominal Exam: Soft, Normal Bowel Sounds. absent: Tenderness - Extremities Exam Extremities Exam: Full ROM, Normal Capillary Refill, Normal Inspection. absent : Joint Swelling, Pedal Edema - Neurological Exam Neurological Exam: Alert, Awake, Oriented x3 - Psychiatric Exam Psychiatric exam: Normal Mood - Skin Skin Exam: Intact Assessment and Plan - Assessment and Plan (Free Text) Assessment: 1) L2 Compression Fracture Continue physical therapy as tolerated Will continue out of bed to chair as tolerated Follow Ortho and neurosurgery recommendations: bed rest and physical therapy No neurosurgical intervention at this time Physical therapy as tolerated Continue Out of bed to chair Imaging: CT confirms acute appearing L2 compression fracture, no retropulsion seen per report. Ill defined soft tissue density seen, ? edema. Would recommend attempt MRI (unsure if patient will tolerate and cooperate) for further visualization. * Neurosurgery Consulted, Dr. Rose. Lumbar XRAY 08/11: - 1. Age indeterminate acute superior endplate compression fracture in the L2 vertebral body with 4 mm retrolisthesis. 2. Mild multilevel degenerative disc disease, worse at L5-S1. see full report. 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 Will continue current psych medications per Dr. Bajwa's recommendations. No recent reported incidences of behavioral disturbances Continue seroquel 50 mg po QD and seroquel 100 mg po HS and depakote sprinkles 125 mg po BID per psych recs Patient off Remeron since 07/31/16. Remeron recommended by psych. However, patient's mood stable. Will add as needed. Will discuss with Dr. Bajwa about how often the behavioral disturbances are occurring in order for further placement into alf 3) Depression No SI/HI. Monitor Psych Dr. Bajwa consulted, help appreciated. Management as above 4) Chest Pain Resolved. As per Dr. Marinelli, likely secondary to SEAT JOINER as per consult 07/23/16. ROMIs negative EKG with LBBB as prior EKGs have also shown Cardio consult - Dr. Marinelli - help appreciated ECHO - left ventricular is normal size. there is mild to moderate concentric left ventricular hypertrophy. the systolic function is midly to moderately impaired. septal hypokinesis. mild to moderate aortic regurgitation. mild pulmonary hypertension. (please see full report) 5) Nodular opacity in chest Pulm consult - Dr. Hayden - help appreciated Chest CT - extensive bilateral fine nodular interstitial infiltrate both lower lobes. dense pleural based consolidation right lower lobe. subpleural emphysema. mild centrilobular pulmonary emphysema. left upper lobe nodules. 7mm and 9mm. reccomend f/u noncontrast chest CT in 3 months. Multiple left upper lobe nodular calcifications, likely granulomatous. probable small airways disease posterior right upper lobe. findings are nonspecific and may reflect infection or inflammatory disease. Patient needs to f/u outpatient per Dr. Hayden for nodular opacity in chest + COPD. 6) COPD Pulm consult - Dr. Hayden - help appreciated Advair and Spiriva 7) DM RISS, accuchecks. Lantus 6U SC HS, Metformin 8) Hypothyroid Continue synthroid 37.5 mcg po qd. 9) Hx of cardiac disease Continue Eliquis, ASA, Crestor. 10) Prophylactic measure Protonix 40 mg PO daily Eliquis 2.5 mg Po BID Social work referral Labs ordered MWF PT recommends [facility]NEY 11) BPH Continue with Flomax Disposition Discharge to rehab facility, pending authorization and acceptance. Need documentations of good behavior. Case management aware. Case discussed with attending Dr. Solis. All management per Dr. Solis.
--- NOTE | 2016-10-02 18:52 | CP.PCM.PN ---
Subjective - Date & Time of Evaluation Date of Evaluation: 10/02/16 Time of Evaluation: 07:00 - Subjective Subjective: clinically same Objective - Vital Signs/Intake and Output Vital Signs (last 24 hours): Temp Pulse Resp BP Pulse Ox 97.5 F L 71 20 96/55 L 96 10/02/16 15:00 10/02/16 15:00 10/02/16 15:00 10/02/16 15:00 10/02/16 15:00 Intake and Output: 10/02/16 10/02/16 06:59 18:59 Intake Total 500 Output Total 500 Balance 0 - Medications Medications: Current Medications Acetaminophen (Tylenol 325mg Tab) 650 mg PO Q6 PRN PRN Reason: Pain, moderate (4-7) Apixaban (Eliquis) 2.5 mg PO BID [facility] Last Admin: 10/02/16 18:04 Dose: 2.5 mg Aspirin (Aspirin Chewable) 81 mg PO DAILY [facility] Last Admin: 10/02/16 11:49 Dose: Not Given Calcium Carbonate (Tums) 500 mg PO BID [facility] Last Admin: 10/02/16 18:05 Dose: 500 mg Divalproex Sodium (Depakote Sprinkles) 125 mg PO BID [facility] Last Admin: 10/02/16 18:04 Dose: 125 mg Guaifenesin (Robitussin) 100 mg PO Q4H PRN PRN Reason: Cough Last Admin: 09/28/16 14:30 Dose: 100 mg Insulin Glargine (Lantus) 6 unit SC [facility] Last Admin: 10/01/16 21:29 Dose: 6 units Levothyroxine Sodium (Synthroid) 37.5 mcg PO DAILY@0630 [facility] Last Admin: 10/02/16 05:30 Dose: 37.5 mcg Metformin HCl (Glucophage) 1,000 mg PO BIDCC [facility] Last Admin: 10/02/16 17:50 Dose: 1,000 mg Pantoprazole Sodium (Protonix Ec Tab) 40 mg PO DAILY [facility] Last Admin: 10/02/16 11:50 Dose: Not Given Quetiapine Fumarate (Seroquel) 100 mg PO HS [facility] Last Admin: 10/01/16 21:36 Dose: 100 mg Quetiapine Fumarate (Seroquel) 50 mg PO DAILY [facility] Last Admin: 10/02/16 11:50 Dose: Not Given Rosuvastatin Calcium (Crestor) 5 mg PO HS [facility] Last Admin: 10/01/16 21:29 Dose: 5 mg Fluticasone/Salmeterol (Advair Diskus 250/50) 1 puff INH RQ12 [facility] Last Admin: 10/02/16 07:10 Dose: 1 puff Tamsulosin HCl (Flomax) 0.4 mg PO DAILY [facility] Last Admin: 10/02/16 11:49 Dose: Not Given Tiotropium [place] (Spiriva) 18 mcg INH RQ24 [facility] Last Admin: 10/02/16 07:10 Dose: 18 mcg Tramadol HCl (Ultram) 25 mg PO Q6 PRN PRN Reason: mod - severe pain (4-10) Last Admin: 09/19/16 22:23 Dose: 25 mg - Labs Labs: 09/25/16 07:45 09/25/16 07:45 - Constitutional Appears: Well - Head Exam Head Exam: ATRAUMATIC, NORMAL INSPECTION, NORMOCEPHALIC - Eye Exam Eye Exam: EOMI, Normal appearance, PERRL Pupil Exam: NORMAL ACCOMODATION, PERRL - ENT Exam ENT Exam: Mucous Membranes Moist, Normal Exam - Neck Exam Neck Exam: Full ROM, Normal Inspection. absent: Lymphadenopathy - Respiratory Exam Respiratory Exam: Decreased Breath Sounds - Cardiovascular Exam Cardiovascular Exam: REGULAR RHYTHM, +S1, +S2 - GI/Abdominal Exam GI & Abdominal Exam: Soft, Diminished Bowel Sounds - Rectal Exam Rectal Exam: Deferred Assessment and Plan (1) Abnormal CXR (chest x-ray) Status: Acute (2) COPD (chronic obstructive pulmonary disease) Status: Acute (3) COPD exacerbation Status: Acute (4) Cardiac disease Status: Acute (5) Depression Status: Acute (6) Diabetes Status: Acute - Assessment and Plan (Free Text) Plan: patient comfortable Tolerating diet Seroquel Statins Continue aspirin flomax depakote Accu-Cheks lantus Physical therapy spiriva synthyroid
[2016-10-02] MEDS: (Lantus) Insulin Glargine, Recombinant SC SCH (21:49)
[2016-10-03] MEDS: Levothyroxine 75 MCG TAB PO SCH (07:00)
[2016-10-03] MEDS: Fluticasone-Salmeterol 250-50mcg Diskus INH SCH ×2 (08:14→20:15)
[2016-10-03] MEDS: Tiotropium 18 mcg Cap For Inhalation INH SCH (08:14)
[2016-10-03] MEDS: Pantoprazole 40 mg EC Tab PO SCH (09:00)
[2016-10-03] MEDS: Divalproex 125 mg Sprinkle Capsule PO SCH ×2 (09:00→17:49)
[2016-10-03] MEDS: Calcium Carbonate 500 mg Chewable Antacid Tab PO SCH ×2 (09:01→17:49)
--- NOTE | 2016-10-03 14:22 | CP.PCM.PN ---
Subjective - Date & Time of Evaluation Date of Evaluation: 09/26/16 Time of Evaluation: 07:00 - Subjective Subjective: clinically same Objective - Vital Signs/Intake and Output Vital Signs (last 24 hours): Temp Pulse Resp BP Pulse Ox 97.9 F 89 20 106/65 96 10/03/16 08:26 10/03/16 08:26 10/03/16 08:26 10/03/16 08:26 10/03/16 08:26 Intake and Output: 10/03/16 10/03/16 06:59 18:59 Intake Total 250 Balance 250 - Medications Medications: Current Medications Acetaminophen (Tylenol 325mg Tab) 650 mg PO Q6 PRN PRN Reason: Pain, moderate (4-7) Apixaban (Eliquis) 2.5 mg PO BID [facility] Last Admin: 10/03/16 09:00 Dose: 2.5 mg Aspirin (Aspirin Chewable) 81 mg PO DAILY [facility] Last Admin: 10/03/16 08:59 Dose: 81 mg Calcium Carbonate (Tums) 500 mg PO BID [facility] Last Admin: 10/03/16 09:01 Dose: 500 mg Divalproex Sodium (Depakote Sprinkles) 125 mg PO BID [facility] Last Admin: 10/03/16 09:00 Dose: 125 mg Guaifenesin (Robitussin) 100 mg PO Q4H PRN PRN Reason: Cough Last Admin: 09/28/16 14:30 Dose: 100 mg Insulin Glargine (Lantus) 6 unit SC HS [facility] Last Admin: 10/02/16 21:49 Dose: 6 units Levothyroxine Sodium (Synthroid) 37.5 mcg PO DAILY@0630 [facility] Last Admin: 10/02/16 05:30 Dose: 37.5 mcg Metformin HCl (Glucophage) 1,000 mg PO BIDCC [facility] Last Admin: 10/03/16 08:59 Dose: 1,000 mg Pantoprazole Sodium (Protonix Ec Tab) 40 mg PO DAILY [facility] Last Admin: 10/03/16 09:00 Dose: 40 mg Quetiapine Fumarate (Seroquel) 100 mg PO HS [facility] Last Admin: 10/02/16 21:13 Dose: 100 mg Quetiapine Fumarate (Seroquel) 50 mg PO DAILY [facility] Last Admin: 10/03/16 08:59 Dose: 50 mg Rosuvastatin Calcium (Crestor) 5 mg PO HS [facility] Last Admin: 10/02/16 21:13 Dose: 5 mg Fluticasone/Salmeterol (Advair Diskus 250/50) 1 puff INH RQ12 [facility] Last Admin: 10/03/16 08:14 Dose: 1 puff Tamsulosin HCl (Flomax) 0.4 mg PO DAILY [facility] Last Admin: 10/03/16 09:00 Dose: 0.4 mg Tiotropium [place] (Spiriva) 18 mcg INH RQ24 [facility] Last Admin: 10/03/16 08:14 Dose: 18 mcg Tramadol HCl (Ultram) 25 mg PO Q6 PRN PRN Reason: mod - severe pain (4-10) Last Admin: 09/19/16 22:23 Dose: 25 mg - Labs Labs: 09/25/16 07:45 09/25/16 07:45 - Constitutional Appears: Well - Head Exam Head Exam: ATRAUMATIC, NORMAL INSPECTION, NORMOCEPHALIC - Eye Exam Eye Exam: EOMI, Normal appearance, PERRL - ENT Exam ENT Exam: Mucous Membranes Moist, Normal Exam - Neck Exam Neck Exam: Full ROM, Normal Inspection. absent: Lymphadenopathy - Respiratory Exam Respiratory Exam: Decreased Breath Sounds - Cardiovascular Exam Cardiovascular Exam: REGULAR RHYTHM, +S1, +S2 - GI/Abdominal Exam GI & Abdominal Exam: Soft, Diminished Bowel Sounds - Rectal Exam Rectal Exam: Deferred Assessment and Plan (1) Abnormal CXR (chest x-ray) Status: Acute (2) COPD (chronic obstructive pulmonary disease) Status: Acute (3) COPD exacerbation Status: Acute (4) Cardiac disease Status: Acute (5) Depression Status: Acute (6) Diabetes Status: Acute - Assessment and Plan (Free Text) Plan: patient comfortable Seroquel Statins Continue aspirin flomax depakote Accu-Cheks lantus Physical therapy spiriva
[2016-10-03] MEDS: (Lantus) Insulin Glargine, Recombinant SC SCH (22:23)
[2016-10-04] MEDS: Levothyroxine 75 MCG TAB PO SCH (05:35)
--- NOTE | 2016-10-04 07:05 | CP.PCM.PN ---
Subjective - Date & Time of Evaluation Date of Evaluation: 10/04/16 Time of Evaluation: 04:30 - Subjective Subjective: clinically same Objective - Vital Signs/Intake and Output Vital Signs (last 24 hours): Temp Pulse Resp BP Pulse Ox 97.8 F 71 20 108/59 L 98 10/03/16 23:45 10/03/16 23:45 10/03/16 23:45 10/03/16 23:45 10/03/16 23:45 - Medications Medications: Current Medications Acetaminophen (Tylenol 325mg Tab) 650 mg PO Q6 PRN PRN Reason: Pain, moderate (4-7) Apixaban (Eliquis) 2.[address] [facility] Last Admin: 10/03/16 17:50 Dose: 2.5 mg Aspirin (Aspirin Chewable) [address] [facility] Last Admin: 10/03/16 08:59 Dose: 81 mg Calcium Carbonate (Tums) [address] [facility] Last Admin: 10/03/16 17:49 Dose: 500 mg Divalproex Sodium (Depakote Sprinkles) [address] [facility] Last Admin: 10/03/16 17:49 Dose: 125 mg Guaifenesin (Robitussin) 100 mg PO Q4H PRN PRN Reason: Cough Last Admin: 09/28/16 14:30 Dose: 100 mg Insulin Glargine (Lantus) 6 unit SC [facility] Last Admin: 10/03/16 22:23 Dose: Not Given Levothyroxine Sodium (Synthroid) 37.5 mcg PO DAILY@0630 [facility] Last Admin: 10/04/16 05:35 Dose: 37.5 mcg Metformin HCl (Glucophage) 1,[address] [facility] Last Admin: 10/03/16 17:49 Dose: 1,000 mg Pantoprazole Sodium (Protonix Ec Tab) [address] [facility] Last Admin: 10/03/16 09:00 Dose: 40 mg Quetiapine Fumarate (Seroquel) [address] [facility] Last Admin: 10/03/16 22:09 Dose: 100 mg Quetiapine Fumarate (Seroquel) [address] [facility] Last Admin: 10/03/16 08:59 Dose: 50 mg Rosuvastatin Calcium (Crestor) [address] [facility] Last Admin: 10/03/16 22:08 Dose: 5 mg Fluticasone/Salmeterol (Advair Diskus 250/50) 1 puff INH RQ12 [facility] Last Admin: 10/03/16 20:15 Dose: 1 puff Tamsulosin HCl (Flomax) 0.4 mg PO DAILY [facility] Last Admin: 10/03/16 09:00 Dose: 0.4 mg Tiotropium [place] (Spiriva) 18 mcg INH RQ24 [facility] Last Admin: 10/03/16 08:14 Dose: 18 mcg Tramadol HCl (Ultram) 25 mg PO Q6 PRN PRN Reason: mod - severe pain (4-10) Last Admin: 09/19/16 22:23 Dose: 25 mg - Labs Labs: 09/25/16 07:45 09/25/16 07:45 - Constitutional Appears: Well - Head Exam Head Exam: ATRAUMATIC, NORMAL INSPECTION, NORMOCEPHALIC - Eye Exam Eye Exam: EOMI, Normal appearance, PERRL - ENT Exam ENT Exam: Mucous Membranes Moist, Normal Exam - Respiratory Exam Respiratory Exam: Decreased Breath Sounds, NORMAL BREATHING PATTERN - Cardiovascular Exam Cardiovascular Exam: REGULAR RHYTHM, +S1, +S2. absent: Murmur - GI/Abdominal Exam GI & Abdominal Exam: Soft, Diminished Bowel Sounds - Rectal Exam Rectal Exam: Deferred Assessment and Plan (1) Abnormal CXR (chest x-ray) Status: Acute (2) COPD (chronic obstructive pulmonary disease) Status: Acute (3) COPD exacerbation Status: Acute (4) Cardiac disease Status: Acute (5) Depression Status: Acute (6) Diabetes Status: Acute - Assessment and Plan (Free Text) Plan: refusing all meds jovi asp, crestor synthyroid flomax depakote Accu-Cheks lantus Physical therapy spiriva
[2016-10-04] MEDS: Fluticasone-Salmeterol 250-50mcg Diskus INH SCH ×2 (08:13→20:04)
[2016-10-04] MEDS: Tiotropium 18 mcg Cap For Inhalation INH SCH (08:13)
[2016-10-04] MEDS: Pantoprazole 40 mg EC Tab PO SCH (10:38)
[2016-10-04] MEDS: Divalproex 125 mg Sprinkle Capsule PO SCH ×2 (10:38→18:46)
[2016-10-04] MEDS: Calcium Carbonate 500 mg Chewable Antacid Tab PO SCH ×2 (10:39→18:45)
--- NOTE | 2016-10-04 11:37 | CP.PCM.PCO ---
Physician Communication Note - Physician Communication Note Physician Communication Note: patient is refusing all meds today
[2016-10-04] MEDS: (Lantus) Insulin Glargine, Recombinant SC SCH (21:41)
[2016-10-05] MEDS: Levothyroxine 75 MCG TAB PO SCH (06:32)
[2016-10-05] MEDS: Tiotropium 18 mcg Cap For Inhalation INH SCH (08:30)
[2016-10-05] MEDS: Fluticasone-Salmeterol 250-50mcg Diskus INH SCH ×2 (08:30→20:45)
[2016-10-05] MEDS: Pantoprazole 40 mg EC Tab PO SCH (11:01)
[2016-10-05] MEDS: Calcium Carbonate 500 mg Chewable Antacid Tab PO SCH ×2 (11:19→17:33)
[2016-10-05] MEDS: Divalproex 125 mg Sprinkle Capsule PO SCH ×2 (11:19→17:33)
--- NOTE | 2016-10-05 13:55 | CP.PCM.PN ---
Subjective - Date & Time of Evaluation Date of Evaluation: 10/05/16 Time of Evaluation: 13:54 - Subjective Subjective: Patient seen and examined No events overnight Chart reviewed Vital signs noted Lungs-clear to auscultation Abdomen-soft CVS-S1-S2 heard Assessment/plan COPD Exacerbation Diabetes abnormal x-ray Bronchodilators Oxygen supplementation Accu-Chek Insulin coverage Supportive care DVT/GI prophylaxis Objective - Vital Signs/Intake and Output Vital Signs (last 24 hours): Temp Pulse Resp BP Pulse Ox 98 F 70 20 121/77 97 10/05/16 07:29 10/05/16 07:29 10/05/16 07:29 10/05/16 07:29 10/05/16 07:29 Intake and Output: 10/05/16 10/05/16 06:59 18:59 Intake Total 450 Output Total 350 Balance 100 - Medications Medications: Current Medications Acetaminophen (Tylenol 325mg Tab) 650 mg PO Q6 PRN PRN Reason: Pain, moderate (4-7) Apixaban (Eliquis) 2.5 mg PO BID [facility] Last Admin: 10/05/16 11:19 Dose: 2.5 mg Aspirin (Aspirin Chewable) 81 mg PO DAILY [facility] Last Admin: 10/05/16 11:00 Dose: 81 mg Calcium Carbonate (Tums) 500 mg PO BID [facility] Last Admin: 10/05/16 11:19 Dose: 500 mg Divalproex Sodium (Depakote Sprinkles) 125 mg PO BID [facility] Last Admin: 10/05/16 11:19 Dose: 125 mg Guaifenesin (Robitussin) 100 mg PO Q4H PRN PRN Reason: Cough Last Admin: 09/28/16 14:30 Dose: 100 mg Insulin Glargine (Lantus) 6 unit SC [facility] Last Admin: 10/04/16 21:41 Dose: Not Given Levothyroxine Sodium (Synthroid) 37.5 mcg PO DAILY@0630 [facility] Last Admin: 10/05/16 06:32 Dose: 37.5 mcg [facility] ([facility] Last Admin: 10/05/16 10:55 Dose: 1,000 mg Pantoprazole Sodium (Protonix Ec Tab) 40 mg PO DAILY [facility] Last Admin: 10/05/16 11:01 Dose: 40 mg Quetiapine Fumarate (Seroquel) 100 mg PO HS [facility] Last Admin: 10/04/16 21:41 Dose: Not Given Quetiapine Fumarate (Seroquel) 50 mg PO DAILY [facility] Last Admin: 10/05/16 11:00 Dose: 50 mg Rosuvastatin Calcium (Crestor) 5 mg PO HS [facility] Last Admin: 10/04/16 21:40 Dose: Not Given Fluticasone/Salmeterol (Advair Diskus 250/50) 1 puff INH RQ12 [facility] Last Admin: 10/05/16 08:30 Dose: 1 puff Tamsulosin HCl (Flomax) 0.4 mg PO DAILY [facility] Last Admin: 10/05/16 11:01 Dose: 0.4 mg Tiotropium [place] (Spiriva) 18 mcg INH RQ24 [facility] Last Admin: 10/05/16 08:30 Dose: 18 mcg - Labs Labs: 09/25/16 07:45 09/25/16 07:45
[2016-10-05] MEDS: (Lantus) Insulin Glargine, Recombinant SC SCH (21:43)
[2016-10-06] MEDS: Levothyroxine 75 MCG TAB PO SCH (06:09)
[2016-10-06] MEDS: Tiotropium 18 mcg Cap For Inhalation INH SCH (08:11)
[2016-10-06] MEDS: Fluticasone-Salmeterol 250-50mcg Diskus INH SCH ×2 (08:11→20:42)
[2016-10-06] MEDS: Pantoprazole 40 mg EC Tab PO SCH (09:39)
[2016-10-06] MEDS: Divalproex 125 mg Sprinkle Capsule PO SCH ×2 (09:40→18:24)
[2016-10-06] MEDS: Calcium Carbonate 500 mg Chewable Antacid Tab PO SCH ×2 (09:40→18:28)
--- NOTE | 2016-10-06 16:34 | CP.PCM.PN ---
Subjective - Date & Time of Evaluation Date of Evaluation: 10/06/16 Time of Evaluation: 16:34 - Subjective Subjective: Patient seen and examined No events overnight Chart reviewed Vital signs noted Lungs-clear to auscultation Abdomen-soft CVS-S1-S2 heard Assessment/plan COPD Exacerbation Diabetes abnormal x-ray Bronchodilators Oxygen supplementation Accu-Chek Insulin coverage Supportive care DVT/GI prophylaxis Objective - Vital Signs/Intake and Output Vital Signs (last 24 hours): Temp Pulse Resp BP Pulse Ox 97.5 F L 61 20 110/68 97 10/06/16 08:00 10/06/16 08:00 10/06/16 08:00 10/06/16 08:00 10/06/16 08:00 Intake and Output: 10/06/16 10/06/16 06:59 18:59 Intake Total 500 800 Output Total 400 Balance 500 400 - Medications Medications: Current Medications Acetaminophen (Tylenol 325mg Tab) 650 mg PO Q6 PRN PRN Reason: Pain, moderate (4-7) Apixaban (Eliquis) 2.5 mg PO BID [facility] Last Admin: 10/06/16 09:40 Dose: 2.5 mg Aspirin (Aspirin Chewable) 81 mg PO DAILY [facility] Last Admin: 10/06/16 09:39 Dose: 81 mg Calcium Carbonate (Tums) 500 mg PO BID [facility] Last Admin: 10/06/16 09:40 Dose: 500 mg Divalproex Sodium (Depakote Sprinkles) 125 mg PO BID [facility] Last Admin: 10/06/16 09:40 Dose: 125 mg Guaifenesin (Robitussin) 100 mg PO Q4H PRN PRN Reason: Cough Last Admin: 09/28/16 14:30 Dose: 100 mg Levothyroxine Sodium (Synthroid) 37.5 mcg PO DAILY@0630 [facility] Last Admin: 10/06/16 06:09 Dose: Not Given [facility] Last Admin: 10/06/16 08:29 Dose: 1,000 mg Pantoprazole Sodium (Protonix Ec Tab) 40 mg PO DAILY [facility] Last Admin: 10/06/16 09:39 Dose: 40 mg Quetiapine Fumarate (Seroquel) 100 mg PO HS [facility] Last Admin: 10/05/16 21:53 Dose: Not Given Quetiapine Fumarate (Seroquel) 50 mg PO DAILY [facility] Last Admin: 10/06/16 09:39 Dose: 50 mg Rosuvastatin Calcium (Crestor) 5 mg PO HS [facility] Last Admin: 10/05/16 22:17 Dose: Not Given Fluticasone/Salmeterol (Advair Diskus 250/50) 1 puff INH RQ12 [facility] Last Admin: 10/06/16 08:11 Dose: 1 puff Tamsulosin HCl (Flomax) 0.4 mg PO DAILY [facility] Last Admin: 10/06/16 09:39 Dose: 0.4 mg Tiotropium [place] (Spiriva) 18 mcg INH RQ24 [facility] Last Admin: 10/06/16 08:11 Dose: 18 mcg - Labs Labs: 09/25/16 07:45 09/25/16 07:45
[2016-10-07] MEDS: Levothyroxine 75 MCG TAB PO SCH (05:32)
[2016-10-07] MEDS: Fluticasone-Salmeterol 250-50mcg Diskus INH SCH ×2 (08:14→19:58)
[2016-10-07] MEDS: Tiotropium 18 mcg Cap For Inhalation INH SCH (08:14)
[2016-10-07] MEDS: Divalproex 125 mg Sprinkle Capsule PO SCH ×2 (09:45→18:07)
[2016-10-07] MEDS: Pantoprazole 40 mg EC Tab PO SCH (09:45)
[2016-10-07] MEDS: Calcium Carbonate 500 mg Chewable Antacid Tab PO SCH ×2 (09:46→18:07)
--- NOTE | 2016-10-07 15:03 | CP.PCM.PN ---
Subjective - Date & Time of Evaluation Date of Evaluation: 10/07/16 Time of Evaluation: 15:03 - Subjective Subjective: Patient seen and examined No events overnight Chart reviewed Vital signs noted Lungs-clear to auscultation Abdomen-soft CVS-S1-S2 heard Assessment/plan COPD Exacerbation Diabetes abnormal x-ray Bronchodilators Oxygen supplementation Accu-Chek Insulin coverage Supportive care DVT/GI prophylaxis Objective - Vital Signs/Intake and Output Vital Signs (last 24 hours): Temp Pulse Resp BP Pulse Ox 97.4 F L 55 L 20 115/53 L 98 10/07/16 07:26 10/07/16 07:26 10/07/16 07:26 10/07/16 07:26 10/07/16 07:26 Intake and Output: 10/07/16 10/07/16 06:59 18:59 Intake Total 640 200 Output Total 400 Balance 240 200 - Medications Medications: Current Medications Acetaminophen (Tylenol 325mg Tab) 650 mg PO Q6 PRN PRN Reason: Pain, moderate (4-7) Apixaban (Eliquis) 2.5 mg PO BID [facility] Last Admin: 10/07/16 09:45 Dose: 2.5 mg Aspirin (Aspirin Chewable) 81 mg PO DAILY [facility] Last Admin: 10/07/16 09:45 Dose: 81 mg Calcium Carbonate (Tums) 500 mg PO BID [facility] Last Admin: 10/07/16 09:46 Dose: 500 mg Divalproex Sodium (Depakote Sprinkles) 125 mg PO BID [facility] Last Admin: 10/07/16 09:45 Dose: 125 mg Guaifenesin (Robitussin) 100 mg PO Q4H PRN PRN Reason: Cough Last Admin: 09/28/16 14:30 Dose: 100 mg Levothyroxine Sodium (Synthroid) 37.5 mcg PO DAILY@0630 [facility] Last Admin: 10/07/16 05:32 Dose: 37.5 mcg Metformin HCl (Glucophage) 1,000 mg PO BIDCC [facility] Last Admin: 10/07/16 08:39 Dose: 1,000 mg Pantoprazole Sodium (Protonix Ec Tab) 40 mg PO DAILY [facility] Last Admin: 10/07/16 09:45 Dose: 40 mg Quetiapine Fumarate (Seroquel) 100 mg PO HS [facility] Last Admin: 10/06/16 21:49 Dose: 100 mg Quetiapine Fumarate (Seroquel) 50 mg PO DAILY [facility] Last Admin: 10/07/16 09:45 Dose: 50 mg Rosuvastatin Calcium (Crestor) 5 mg PO HS [facility] Last Admin: 10/06/16 21:49 Dose: 5 mg Fluticasone/Salmeterol (Advair Diskus 250/50) 1 puff INH RQ12 [facility] Last Admin: 10/07/16 08:14 Dose: 1 puff Tamsulosin HCl (Flomax) 0.4 mg PO DAILY [facility] Last Admin: 10/07/16 09:45 Dose: 0.4 mg Tiotropium [place] (Spiriva) 18 mcg INH RQ24 [facility] Last Admin: 10/07/16 08:14 Dose: 18 mcg - Labs Labs: 09/25/16 07:45 09/25/16 07:45
[2016-10-08] MEDS: Levothyroxine 75 MCG TAB PO SCH (05:55)
[2016-10-08] MEDS: Tiotropium 18 mcg Cap For Inhalation INH SCH (08:32)
[2016-10-08] MEDS: Fluticasone-Salmeterol 250-50mcg Diskus INH SCH ×2 (08:32→20:00)
[2016-10-08] MEDS: Pantoprazole 40 mg EC Tab PO SCH (09:53)
[2016-10-08] MEDS: Divalproex 125 mg Sprinkle Capsule PO SCH ×2 (09:59→17:31)
[2016-10-08] MEDS: Calcium Carbonate 500 mg Chewable Antacid Tab PO SCH ×2 (10:00→17:31)
--- NOTE | 2016-10-08 19:37 | CP.PCM.PN ---
Subjective - Date & Time of Evaluation Date of Evaluation: 10/08/16 Time of Evaluation: 19:37 - Subjective Subjective: Patient seen and examined No events overnight Chart reviewed Vital signs noted Lungs-clear to auscultation Abdomen-soft CVS-S1-S2 heard Assessment/plan COPD Exacerbation Diabetes abnormal x-ray Bronchodilators Oxygen supplementation Accu-Chek Insulin coverage Supportive care DVT/GI prophylaxis Objective - Vital Signs/Intake and Output Vital Signs (last 24 hours): Temp Pulse Resp BP Pulse Ox 97.9 F 68 20 109/71 97 10/08/16 15:00 10/08/16 15:00 10/08/16 15:00 10/08/16 15:13 10/08/16 15:00 Intake and Output: 10/08/16 10/09/16 18:59 06:59 Intake Total 300 Output Total 600 Balance -300 - Medications Medications: Current Medications Acetaminophen (Tylenol 325mg Tab) 650 mg PO Q6 PRN PRN Reason: Pain, moderate (4-7) Apixaban (Eliquis) 2.5 mg PO BID [facility] Last Admin: 10/08/16 17:32 Dose: 2.5 mg Aspirin (Aspirin Chewable) 81 mg PO DAILY [facility] Last Admin: 10/08/16 09:53 Dose: 81 mg Calcium Carbonate (Tums) 500 mg PO BID [facility] Last Admin: 10/08/16 17:31 Dose: 500 mg Divalproex Sodium (Depakote Sprinkles) 125 mg PO BID [facility] Last Admin: 10/08/16 17:31 Dose: 125 mg Guaifenesin (Robitussin) 100 mg PO Q4H PRN PRN Reason: Cough Last Admin: 09/28/16 14:30 Dose: 100 mg Levothyroxine Sodium (Synthroid) 37.5 mcg PO DAILY@0630 [facility] Last Admin: 10/08/16 05:55 Dose: 37.5 mcg Metformin [facility] ([facility]) [facility] Last Admin: 10/08/16 17:31 Dose: 1,000 mg Pantoprazole Sodium (Protonix Ec Tab) 40 mg PO DAILY [facility] Last Admin: 10/08/16 09:53 Dose: 40 mg Quetiapine Fumarate (Seroquel) 50 mg PO DAILY [facility] Last Admin: 10/08/16 09:53 Dose: 50 mg Rosuvastatin Calcium (Crestor) 5 mg PO HS [facility] Last Admin: 10/07/16 21:34 Dose: 5 mg Fluticasone/Salmeterol (Advair Diskus 250/50) 1 puff INH RQ12 [facility] Last Admin: 10/08/16 08:32 Dose: 1 puff Tamsulosin HCl (Flomax) 0.4 mg PO DAILY [facility] Last Admin: 10/08/16 09:53 Dose: 0.4 mg - Labs Labs: 09/25/16 07:45 09/25/16 07:45
[2016-10-09] MEDS: Levothyroxine 75 MCG TAB PO SCH (06:00)
[2016-10-09] MEDS: Fluticasone-Salmeterol 250-50mcg Diskus INH SCH ×2 (09:00→21:57)
[2016-10-09] MEDS: Pantoprazole 40 mg EC Tab PO SCH (09:48)
[2016-10-09] MEDS: Calcium Carbonate 500 mg Chewable Antacid Tab PO SCH ×2 (09:48→18:47)
[2016-10-09] MEDS: Divalproex 125 mg Sprinkle Capsule PO SCH ×2 (09:48→18:47)
--- NOTE | 2016-10-09 14:47 | CP.PCM.PN ---
Subjective - Date & Time of Evaluation Date of Evaluation: 10/09/16 Time of Evaluation: 14:47 - Subjective Subjective: Patient seen and examined No events overnight Chart reviewed Vital signs noted Lungs-clear to auscultation Abdomen-soft CVS-S1-S2 heard Assessment/plan COPD Exacerbation Diabetes abnormal x-ray Bronchodilators Oxygen supplementation Accu-Chek Insulin coverage Supportive care DVT/GI prophylaxis Objective - Vital Signs/Intake and Output Vital Signs (last 24 hours): Temp Pulse Resp BP Pulse Ox 98 F 65 20 123/62 97 10/09/16 08:00 10/09/16 08:00 10/09/16 08:00 10/09/16 08:00 10/09/16 08:00 Intake and Output: 10/09/16 10/09/16 06:59 18:59 Intake Total 500 Output Total 901 Balance -401 - Medications Medications: Current Medications Acetaminophen (Tylenol 325mg Tab) 650 mg PO Q6 PRN PRN Reason: Pain, moderate (4-7) Apixaban (Eliquis) 2.5 mg PO BID [facility] Last Admin: 10/09/16 09:48 Dose: 2.5 mg Aspirin (Aspirin Chewable) 81 mg PO DAILY [facility] Last Admin: 10/09/16 09:48 Dose: 81 mg Calcium Carbonate (Tums) 500 mg PO BID [facility] Last Admin: 10/09/16 09:48 Dose: 500 mg Divalproex Sodium (Depakote Sprinkles) 125 mg PO BID [facility] Last Admin: 10/09/16 09:48 Dose: 125 mg Guaifenesin (Robitussin) 100 mg PO Q4H PRN PRN Reason: Cough Last Admin: 09/28/16 14:30 Dose: 100 mg Levothyroxine Sodium (Synthroid) 37.5 mcg PO DAILY@0630 [facility] Last Admin: 10/09/16 06:00 Dose: 37.5 mcg Metformin [facility] ([facility]) [facility] Last Admin: 10/09/16 09:48 Dose: 1,000 mg Pantoprazole Sodium (Protonix Ec Tab) 40 mg PO DAILY [facility] Last Admin: 10/09/16 09:48 Dose: 40 mg Quetiapine Fumarate (Seroquel) 50 mg PO DAILY [facility] Last Admin: 10/09/16 09:48 Dose: 50 mg Rosuvastatin Calcium (Crestor) 5 mg PO HS [facility] Last Admin: 10/08/16 22:05 Dose: 5 mg Fluticasone/Salmeterol (Advair Diskus 250/50) 1 puff INH RQ12 [facility] Last Admin: 10/09/16 09:00 Dose: 1 puff Tamsulosin HCl (Flomax) 0.4 mg PO DAILY [facility] Last Admin: 10/09/16 09:49 Dose: 0.4 mg - Labs Labs: 09/25/16 07:45 09/25/16 07:45
[2016-10-10] MEDS: Levothyroxine 75 MCG TAB PO SCH (05:44)
--- NOTE | 2016-10-10 09:51 | CP.PCM.PN ---
Subjective - Date & Time of Evaluation Date of Evaluation: 10/10/16 Time of Evaluation: 09:00 - Subjective Subjective: clinically same Objective - Vital Signs/Intake and Output Vital Signs (last 24 hours): Temp Pulse Resp BP Pulse Ox 98.7 F 65 20 108/62 97 10/10/16 08:38 10/10/16 08:38 10/10/16 08:38 10/10/16 08:38 10/10/16 08:38 Intake and Output: 10/10/16 10/10/16 06:59 18:59 Intake Total 200 Balance 200 - Medications Medications: Current Medications Acetaminophen (Tylenol 325mg Tab) 650 mg PO Q6 PRN PRN Reason: Pain, moderate (4-7) Apixaban (Eliquis) 2.5 mg PO BID [facility] Last Admin: 10/09/16 18:47 Dose: 2.5 mg Aspirin (Aspirin Chewable) 81 mg PO DAILY [facility] Last Admin: 10/09/16 09:48 Dose: 81 mg Calcium Carbonate (Tums) 500 mg PO BID [facility] Last Admin: 10/09/16 18:47 Dose: 500 mg Divalproex Sodium (Depakote Sprinkles) 125 mg PO BID [facility] Last Admin: 10/09/16 18:47 Dose: 125 mg Guaifenesin (Robitussin) 100 mg PO Q4H PRN PRN Reason: Cough Last Admin: 09/28/16 14:30 Dose: 100 mg Levothyroxine Sodium (Synthroid) 37.5 mcg PO DAILY@0630 [facility] Last Admin: 10/10/16 05:44 Dose: 37.5 mcg Metformin HCl (Glucophage) 1,000 mg PO BIDCC [facility] Last Admin: 10/09/16 18:48 Dose: 1,000 mg Pantoprazole Sodium (Protonix Ec Tab) 40 mg PO DAILY [facility] Last Admin: 10/09/16 09:48 Dose: 40 mg Quetiapine Fumarate (Seroquel) 50 mg PO DAILY [facility] Last Admin: 10/09/16 09:48 Dose: 50 mg Quetiapine Fumarate (Seroquel) 100 mg PO HS [facility] Last Admin: 10/09/16 21:26 Dose: 100 mg Rosuvastatin Calcium (Crestor) 5 mg PO HS [facility] Last Admin: 10/09/16 21:26 Dose: 5 mg Fluticasone/Salmeterol (Advair Diskus 250/50) 1 puff INH RQ12 [facility] Last Admin: 10/09/16 21:57 Dose: Not Given Tamsulosin HCl (Flomax) 0.4 mg PO DAILY [facility] Last Admin: 10/09/16 09:49 Dose: 0.4 mg - Labs Labs: 09/25/16 07:45 09/25/16 07:45 - Constitutional Appears: Well - Head Exam Head Exam: ATRAUMATIC, NORMAL INSPECTION, NORMOCEPHALIC - Eye Exam Eye Exam: EOMI, Normal appearance, PERRL Pupil Exam: NORMAL ACCOMODATION, PERRL - ENT Exam ENT Exam: Mucous Membranes Moist, Normal Exam - Neck Exam Neck Exam: Full ROM, Normal Inspection. absent: Lymphadenopathy - Respiratory Exam Respiratory Exam: Decreased Breath Sounds - Cardiovascular Exam Cardiovascular Exam: REGULAR RHYTHM, +S1, +S2 - GI/Abdominal Exam GI & Abdominal Exam: Soft, Diminished Bowel Sounds - Rectal Exam Rectal Exam: Deferred Assessment and Plan (1) Abnormal CXR (chest x-ray) Status: Acute (2) COPD (chronic obstructive pulmonary disease) Status: Acute (3) COPD exacerbation Status: Acute (4) Cardiac disease Status: Acute (5) Depression Status: Acute (6) Diabetes Status: Acute - Assessment and Plan (Free Text) Plan: hemodynamically stable resting comfortably Physical therapy spiriva flomax depakote Accu-Cheks lantus Physical therapy [facility]
[2016-10-10] MEDS: Pantoprazole 40 mg EC Tab PO SCH (10:40)
[2016-10-10] MEDS: Calcium Carbonate 500 mg Chewable Antacid Tab PO SCH ×2 (10:40→18:13)
[2016-10-10] MEDS: Divalproex 125 mg Sprinkle Capsule PO SCH ×2 (10:41→18:14)
[2016-10-10] MEDS: Fluticasone-Salmeterol 250-50mcg Diskus INH SCH ×2 (13:35→22:16)
[2016-10-11] MEDS: Levothyroxine 75 MCG TAB PO SCH (05:30)
[2016-10-11] MEDS: Fluticasone-Salmeterol 250-50mcg Diskus INH SCH ×2 (08:07→19:58)
[2016-10-11] MEDS: Pantoprazole 40 mg EC Tab PO SCH (10:11)
[2016-10-11] MEDS: Divalproex 125 mg Sprinkle Capsule PO SCH ×2 (10:14→17:21)
[2016-10-11] MEDS: Calcium Carbonate 500 mg Chewable Antacid Tab PO SCH ×2 (10:14→17:20)
--- NOTE | 2016-10-11 15:46 | CP.PCM.PN ---
Subjective - Date & Time of Evaluation Date of Evaluation: 10/11/16 Time of Evaluation: 10:00 - Subjective Subjective: clinically same Objective - Vital Signs/Intake and Output Vital Signs (last 24 hours): Temp Pulse Resp BP Pulse Ox 98.5 F 86 20 99/41 L 95 10/11/16 07:00 10/11/16 07:00 10/11/16 07:00 10/11/16 07:00 10/11/16 07:00 Intake and Output: 10/11/16 10/11/16 06:59 18:59 Intake Total 150 300 Balance 150 300 - Medications Medications: Current Medications Acetaminophen (Tylenol 325mg Tab) 650 mg PO Q6 PRN PRN Reason: Pain, moderate (4-7) Apixaban (Eliquis) 2.5 mg PO BID [facility] Last Admin: 10/11/16 10:14 Dose: 2.5 mg Aspirin (Aspirin Chewable) 81 mg PO DAILY [facility] Last Admin: 10/11/16 10:10 Dose: 81 mg Calcium Carbonate (Tums) 500 mg PO BID [facility] Last Admin: 10/11/16 10:14 Dose: 500 mg Divalproex Sodium (Depakote Sprinkles) 125 mg PO BID [facility] Last Admin: 10/11/16 10:14 Dose: 125 mg Guaifenesin (Robitussin) 100 mg PO Q4H PRN PRN Reason: Cough Last Admin: 09/28/16 14:30 Dose: 100 mg Levothyroxine Sodium (Synthroid) 37.5 mcg PO DAILY@0630 [facility] Last Admin: 10/11/16 05:30 Dose: 37.5 mcg Metformin HCl (Glucophage) 1,000 mg PO BIDCC [facility] Last Admin: 10/11/16 08:09 Dose: 1,000 mg Pantoprazole Sodium (Protonix Ec Tab) 40 mg PO DAILY [facility] Last Admin: 10/11/16 10:11 Dose: 40 mg Quetiapine Fumarate (Seroquel) 50 mg PO DAILY [facility] Last Admin: 10/11/16 10:11 Dose: 50 mg Quetiapine Fumarate (Seroquel) 100 mg PO HS [facility] Last Admin: 10/10/16 21:40 Dose: 100 mg Rosuvastatin Calcium (Crestor) 5 mg PO HS [facility] Last Admin: 10/10/16 21:40 Dose: 5 mg Fluticasone/Salmeterol (Advair Diskus 250/50) 1 puff INH RQ12 [facility] Last Admin: 10/11/16 08:07 Dose: 1 puff Tamsulosin HCl (Flomax) 0.4 mg PO DAILY [facility] Last Admin: 10/11/16 10:11 Dose: 0.4 mg - Labs Labs: 09/25/16 07:45 09/25/16 07:45 - Constitutional Appears: Well - Head Exam Head Exam: ATRAUMATIC, NORMAL INSPECTION, NORMOCEPHALIC - Eye Exam Eye Exam: EOMI, Normal appearance, PERRL - ENT Exam ENT Exam: Mucous Membranes Moist, Normal Exam - Neck Exam Neck Exam: Full ROM, Normal Inspection. absent: Lymphadenopathy - Respiratory Exam Respiratory Exam: Decreased Breath Sounds - Cardiovascular Exam Cardiovascular Exam: REGULAR RHYTHM, +S1, +S2. absent: Murmur - GI/Abdominal Exam GI & Abdominal Exam: Soft, Diminished Bowel Sounds - Rectal Exam Rectal Exam: Deferred Assessment and Plan (1) Abnormal CXR (chest x-ray) Status: Acute (2) COPD (chronic obstructive pulmonary disease) Status: Acute (3) COPD exacerbation Status: Acute (4) Cardiac disease Status: Acute (5) Depression Status: Acute (6) Diabetes Status: Acute - Assessment and Plan (Free Text) Plan: jovi same no acute events overnight jovi asp, crestor synthyroid flomax depakote Accu-Cheks lantus Physical therapy spiriva
[2016-10-12] MEDS: guaiFENesin 100 mg/5 ml Syrup UD PO PRN (08:38)
[2016-10-12] MEDS: Fluticasone-Salmeterol 250-50mcg Diskus INH SCH ×2 (08:59→19:28)
--- NOTE | 2016-10-12 09:22 | CP.PCM.PN ---
Subjective - Date & Time of Evaluation Date of Evaluation: 10/12/16 Time of Evaluation: 07:00 - Subjective Subjective: PGY2 Resident - Medicine Progress Note Patient seen and examined at bedside. No overnight events per nursing. Patient does not have any complaints, resting comfortably. Reports he is eating well, passing soft BMs. Reports mild toenail discomfort bilaterally. Denies fever, chills, headache, changes in vision, chest pain, palpitations, dyspnea, cough, abdominal pain, nausea/vomiting, diarrhea/constipation, dysuria, urinary frequency, change in urinary stream, or any additional acute complaints. Objective - Vital Signs/Intake and Output Vital Signs (last 24 hours): Temp Pulse Resp BP Pulse Ox 98.0 F 77 20 107/67 96 10/12/16 07:00 10/12/16 07:00 10/12/16 07:00 10/12/16 07:00 10/12/16 07:00 Intake and Output: 10/12/16 10/12/16 06:59 18:59 Intake Total 480 Balance 480 - Medications Medications: Current Medications Acetaminophen (Tylenol 325mg Tab) 650 mg PO Q6 PRN PRN Reason: Pain, moderate (4-7) Apixaban (Eliquis) 2.5 mg PO BID [facility] Last Admin: 10/11/16 17:21 Dose: 2.5 mg Aspirin (Aspirin Chewable) 81 mg PO DAILY [facility] Last Admin: 10/11/16 10:10 Dose: 81 mg Calcium Carbonate (Tums) 500 mg PO BID [facility] Last Admin: 10/11/16 17:20 Dose: 500 mg Divalproex Sodium (Depakote Sprinkles) 125 mg PO BID [facility] Last Admin: 10/11/16 17:21 Dose: 125 mg Guaifenesin (Robitussin) 100 mg PO Q4H PRN PRN Reason: Cough Last Admin: 10/12/16 08:38 Dose: 100 mg Levothyroxine Sodium (Synthroid) 37.5 mcg PO DAILY@0630 [facility] Last Admin: 10/11/16 05:30 Dose: 37.5 mcg Metformin HCl (Glucophage) 1,000 mg PO BIDCC [facility] Last Admin: 10/12/16 08:38 Dose: 1,000 mg Pantoprazole Sodium (Protonix Ec Tab) 40 mg PO DAILY [facility] Last Admin: 10/11/16 10:11 Dose: 40 mg Quetiapine Fumarate (Seroquel) 50 mg PO DAILY [facility] Last Admin: 10/11/16 10:11 Dose: 50 mg Quetiapine Fumarate (Seroquel) 100 mg PO HS [facility] Last Admin: 10/11/16 21:07 Dose: 100 mg Rosuvastatin Calcium (Crestor) 5 mg PO HS [facility] Last Admin: 10/11/16 21:05 Dose: 5 mg Fluticasone/Salmeterol (Advair Diskus 250/50) 1 puff INH RQ12 [facility] Last Admin: 10/12/16 08:59 Dose: 1 puff Tamsulosin HCl (Flomax) 0.4 mg PO DAILY [facility] Last Admin: 10/11/16 10:11 Dose: 0.4 mg - Labs Labs: 09/25/16 07:45 09/25/16 07:45 - Additional Findings Additional findings: - Constitutional Appears: Non-toxic, No Acute Distress, Chronically Ill, Cachectic - Head Exam Head Exam: NORMOCEPHALIC - Eye Exam Eye Exam: Normal appearance Pupil Exam: NORMAL ACCOMODATION - ENT Exam ENT Exam: Mucous Membranes Moist - Neck Exam Neck Exam: Normal Inspection - Respiratory Exam Respiratory Exam: NORMAL BREATHING PATTERN, Rales (mild, mid-lung bilateral). absent: Wheezes, Respiratory Distress - Cardiovascular Exam Cardiovascular Exam: REGULAR RHYTHM, +S1, +S2. absent: Murmur - GI/Abdominal Exam GI & Abdominal Exam: Soft, Normal Bowel Sounds. absent: Tenderness - Extremities Exam Extremities Exam: Full ROM, Normal Capillary Refill, Normal Inspection. absent : Joint Swelling, Pedal Edema - b/l toenail thickening, yellowing, and tenderness to palpation. - Neurological Exam Neurological Exam: Alert, Awake, Oriented x3 - Psychiatric Exam Psychiatric exam: Normal Mood, Normal Affect - Skin Skin Exam: Intact, Clean, Dry Assessment and Plan - Assessment and Plan (Free Text) Assessment: L2 Compression Fracture 10/12: Continue physical therapy as tolerated. Last session 10/09. Will continue out of bed to chair as tolerated Follow Ortho and neurosurgery recommendations: bed rest and physical therapy No neurosurgical intervention at this time Imaging: CT confirms acute appearing L2 compression fracture, no retropulsion seen per report. Ill defined soft tissue density seen, ? edema. Would recommend attempt MRI (unsure if patient will tolerate and cooperate) for further visualization. * Neurosurgery Consulted, Dr. Rose. Lumbar XRAY 08/11: - 1. Age indeterminate acute superior endplate compression fracture in the L2 vertebral body with 4 mm retrolisthesis. 2. Mild multilevel degenerative disc disease, worse at L5-S1. see full report. 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 10/12: Psychiatric management per Dr. Bajwa. No recent reported incidences of behavioral disturbances for over 1 week. -Continue seroquel 50 mg po QD and seroquel 100 mg po HS and depakote sprinkles 125 mg po BID per psych recs -Patient off Remeron since 07/31/16. Remeron recommended by psych. However, patient's mood stable. Will add as needed. -Will discuss with Dr. Bajwa about how often the behavioral disturbances are occurring in order for further placement into retirement Depression 10/12: No SI/HI. Monitor Psych Dr. Bajwa consulted, help appreciated. Management as above Nodular opacity in chest 10/12: Patient needs to f/u outpatient per Dr. Hayden for nodular opacity in chest + COPD. (recommend f/u noncontrast chest CT in Dec 2016) Pulm consult - Dr. Hayden - help appreciated -Chest CT - extensive bilateral fine nodular interstitial infiltrate both lower lobes. dense pleural based consolidation right lower lobe. subpleural emphysema. mild centrilobular pulmonary emphysema. left upper lobe nodules. 7mm and 9mm. recommend f/u noncontrast chest CT in 3 months. Multiple left upper lobe nodular calcifications, likely granulomatous. probable small airways disease posterior right upper lobe. findings are nonspecific and may reflect infection or inflammatory disease. COPD 10/12: continue Advair Pulm consult - Dr. Hayden - help appreciated -previously on Spiriva DM 10/12: Glucose 130's-240's; Continue Metformin -Previously on RISS, Lantus 6U SC HS -accuchecks. Hypothyroid Continue synthroid 37.5 mcg po qd. BPH Continue with Flomax Chest Pain Resolved. As per Dr. Marinelli, likely secondary to [employer] as per consult 07/23/16. ROMIs negative EKG with LBBB as prior EKGs have also shown Cardio consult - Dr. Marinelli - help appreciated ECHO - left ventricular is normal size. there is mild to moderate concentric left ventricular hypertrophy. the systolic function is midly to moderately impaired. septal hypokinesis. mild to moderate aortic regurgitation. mild pulmonary hypertension. (please see full report) Hx of cardiac disease Continue Eliquis, ASA, Crestor. Possible onychomycosis - thickened toenails, mild tenderness, with yellowing - Podiatry consult, Dr. Wallace, f/u recs Prophylactic measure Protonix 40 mg PO daily Eliquis 2.5 mg Po BID Social work referral Labs ordered MWF PT recommends [facility] Disposition Discharge to rehab facility, pending authorization and acceptance. Need documentations of good behavior. Case management aware. Case discussed with attending. All medical management as per Dr. Luba Solis.
[2016-10-12] MEDS: Pantoprazole 40 mg EC Tab PO SCH (11:17)
[2016-10-12] MEDS: Calcium Carbonate 500 mg Chewable Antacid Tab PO SCH ×2 (11:19→18:18)
[2016-10-12] MEDS: Divalproex 125 mg Sprinkle Capsule PO SCH ×2 (11:20→18:18)
[2016-10-12 11:52] LABS: BASO % 0.4 % (0.0-2.0); EOS % 0.5 % (0.0-4.0); HEMATOCRIT 29.2 % (35.0-51.0); LYMPH % 10.1 % (20.0-40.0); MEAN CELL VOLUME 85.9 fL (80.0-94.0); MEAN CORPUSCULAR HEMOGLOBIN 27.9 pg (27.0-31.0); MEAN CORPUSCULAR HGB CONC 32.5 g/dL (33.0-37.0); MEAN PLATELET VOLUME 8.5 fL (7.2-11.7); MONO # 0.7 K/uL (0.0-0.8); MONO % 6.9 % (0.0-10.0)
[2016-10-12 11:53] LABS: WHITE BLOOD COUNT 9.6 K/uL (4.8-10.8)
[2016-10-12 12:09] LABS: CHLORIDE 101 mmol/L (98-107)
[2016-10-12 12:10] LABS: POTASSIUM 4.2 mmol/L (3.6-5.2); SODIUM 137 mmol/L (132-148)
[2016-10-12 12:12] LABS: AST/SGOT 12 U/L (17-59); BILIRUBIN,TOTAL 0.4 mg/dL (0.2-1.3); CARBON DIOXIDE 26 mmol/L (22-30); GFR AFRICAN-AMERICAN > 60; TOTAL PROTEIN 6.1 g/dL (6.3-8.3)
[2016-10-12 12:13] LABS: ALKALINE PHOSPHATASE 46 U/L (38-126); ALT/SGPT 23 U/L (21-72); BLOOD UREA NITROGEN 32 mg/dL (9-20); GLUCOSE,RANDOM 222 mg/dL (75-110); PHOSPHOROUS 3.7 mg/dL (2.5-4.5)
[2016-10-12 12:14] LABS: MAGNESIUM 1.7 mg/dL (1.6-2.3)
[2016-10-12] MEDS ORDERED: (Novolog) Insulin Aspart, Recombinant 100 u/ml 10 ml vial SC SCH (16:30)
--- NOTE | 2016-10-12 16:40 | CP.PCM.CON ---
History of Present Illness - History of Present Illness History of Present Illness: Consult note for Dr. Wallace 82 year old male was seen at bedside for painful, elongated toenails 1-5 b/l. Patient states that they are tender to the touch. He does not recall the last time they were trimmed. Denies n/v/f/c/sob/cp. Past Patient History - Past Medical History & Family History Past Medical History?: Yes - Past Social History Smoking Status: Unknown If Ever Smoked - CARDIAC Hx Congestive Heart Failure: Yes Hx Hypertension: Yes - PULMONARY Hx Chronic Obstructive Pulmonary Disease (COPD): Yes - NEUROLOGICAL Hx Alzheimer's Disease: Yes Hx Dementia: Yes - ENDOCRINE/METABOLIC Hx Diabetes Mellitus Type 2: Yes Hx Hypothyroidism: Yes - MUSCULOSKELETAL/RHEUMATOLOGICAL Hx Arthritis: Yes - PSYCHIATRIC Hx Depression: Yes Hx Substance Use: No - SURGICAL HISTORY Hx Appendectomy: Yes - ANESTHESIA Hx Anesthesia: Yes Hx Anesthesia Reactions: No Hx Malignant Hyperthermia: No Has any member of the family had a problem w/ anesthesia?: No Meds Allergies/Adverse Reactions: Allergies Allergy/AdvReac Type Severity Reaction Status Date / Time No Known Allergies Allergy Unverified 07/15/16 13:18 - Medications Medications: Current Medications Acetaminophen (Tylenol 325mg Tab) 650 mg PO Q6 PRN PRN Reason: Pain, moderate (4-7) Apixaban (Eliquis) 2.5 mg PO BID [facility] Last Admin: 10/12/16 11:20 Dose: 2.5 mg Aspirin (Aspirin Chewable) 81 mg PO DAILY [facility] Last Admin: 10/12/16 11:17 Dose: 81 mg Calcium Carbonate (Tums) 500 mg PO BID [facility] Last Admin: 10/12/16 11:19 Dose: 500 mg Divalproex Sodium (Depakote Sprinkles) 125 mg PO BID [facility] Last Admin: 10/12/16 11:20 Dose: 125 mg Guaifenesin (Robitussin) 100 mg PO Q4H PRN PRN Reason: Cough Last Admin: 10/12/16 08:38 Dose: 100 mg Levothyroxine Sodium (Synthroid) 37.5 mcg PO DAILY@0630 [facility] Last Admin: 10/11/16 05:30 Dose: 37.5 mcg Metformin HCl (Glucophage) 1,000 mg PO BIDCC [facility] Last Admin: 10/12/16 08:38 Dose: 1,000 mg Pantoprazole Sodium (Protonix Ec Tab) 40 mg PO DAILY [facility] Last Admin: 10/12/16 11:17 Dose: 40 mg Quetiapine Fumarate (Seroquel) 50 mg PO DAILY [facility] Last Admin: 10/12/16 11:17 Dose: 50 mg Quetiapine Fumarate (Seroquel) 100 mg PO HS [facility] Last Admin: 10/11/16 21:07 Dose: 100 mg Rosuvastatin Calcium (Crestor) 5 mg PO HS [facility] Last Admin: 10/11/16 21:05 Dose: 5 mg Fluticasone/Salmeterol (Advair Diskus 250/50) 1 puff INH RQ12 [facility] Last Admin: 10/12/16 08:59 Dose: 1 puff Tamsulosin HCl (Flomax) 0.4 mg PO DAILY [facility] Last Admin: 10/12/16 11:17 Dose: 0.4 mg Physical Exam - Constitutional Appears: No Acute Distress, Chronically Ill - Extremities Exam Additional comments: Vasc:DP and PT pulses palpable 1/4 b/l. Skin temperature warm to warm from proximal to distal b/l. Neuro: Gross sensation diminished b/l. Derm: Nails 1-5 are thickened, elongated, discolored. Webspaces c/d/i. Ortho: Tenderness on palpation to nail beds - Neurological Exam Neurological exam: Alert - Psychiatric Exam Psychiatric exam: Normal Affect, Normal Mood Results - Vital Signs Recent Vital Signs: Last Vital Signs Temp 98 F 10/12/16 16:00 Pulse 65 10/12/16 16:00 Resp 20 10/12/16 16:00 BP 122/70 10/12/16 16:00 Pulse Ox 100 10/12/16 16:00 - Labs Result Diagrams: 10/12/16 11:40 10/12/16 11:40 Labs: Laboratory Results - last 24 hr 10/11/16 10/11/16 10/12/16 17:07 21:21 07:23 WBC RBC Hgb Hct MCV MCH MCHC RDW Plt Count MPV Neut % (Auto) Lymph % (Auto) [place] % (Auto) Eos % (Auto) Baso % (Auto) Neut # Lymph # [place] # Eos # Baso # Sodium Potassium Chloride Carbon Dioxide Anion Gap BUN Creatinine Est GFR ( Amer) Est GFR (Non-Af Amer) POC Glucose (mg/dL) 209 H 182 H 131 H Random Glucose Calcium Phosphorus Magnesium Total Bilirubin AST ALT Alkaline Phosphatase Total Protein Albumin Globulin Albumin/Globulin Ratio 10/12/16 10/12/16 10/12/16 11:00 11:40 11:40 WBC 9.6 D RBC 3.40 L Hgb 9.5 L Hct 29.2 L MCV 85.9 MCH 27.9 MCHC 32.5 L RDW 17.0 H Plt Count 242 MPV 8.5 Neut % (Auto) 82.1 H Lymph % (Auto) 10.1 L [place] % (Auto) 6.9 Eos % (Auto) 0.5 Baso % (Auto) 0.4 Neut # 7.9 H Lymph # 1.0 [place] # 0.7 Eos # 0.0 Baso # 0.0 Sodium 137 Potassium 4.2 Chloride 101 Carbon Dioxide 26 Anion Gap 14 BUN 32 H Creatinine 0.8 Est GFR ( Amer) > 60 Est GFR (Non-Af Amer) > 60 POC Glucose (mg/dL) 241 H Random Glucose 222 H Calcium 9.0 Phosphorus 3.7 Magnesium 1.7 Total Bilirubin 0.4 AST 12 L ALT 23 Alkaline Phosphatase 46 Total Protein 6.1 L Albumin 3.0 L Globulin 3.1 Albumin/Globulin Ratio 1.0 Assessment & Plan - Assessment and Plan (Free Text) Assessment: 81 year old male with onychomycosis nails 1-5 b/l Plan: patient examined and evaluated discussed in detail with attending, Dr. Wallace chart, labs, vitals reviewed nails 1-5 b/l were debrided in thickness and in length without incident thank you for your consult, please reconsult as needed
--- NOTE | 2016-10-12 18:34 | CP.PCM.PN ---
Subjective - Date & Time of Evaluation Date of Evaluation: 10/12/16 Time of Evaluation: 07:00 - Subjective Subjective: clinically same Objective - Vital Signs/Intake and Output Vital Signs (last 24 hours): Temp Pulse Resp BP Pulse Ox 98 F 65 20 122/70 100 10/12/16 16:00 10/12/16 16:00 10/12/16 16:00 10/12/16 16:00 10/12/16 16:00 Intake and Output: 10/12/16 10/12/16 06:59 18:59 Intake Total 480 400 Balance 480 400 - Medications Medications: Current Medications Acetaminophen (Tylenol 325mg Tab) 650 mg PO Q6 PRN PRN Reason: Pain, moderate (4-7) Apixaban (Eliquis) 2.5 mg PO BID [facility] Last Admin: 10/12/16 18:18 Dose: 2.5 mg Aspirin (Aspirin Chewable) 81 mg PO DAILY [facility] Last Admin: 10/12/16 11:17 Dose: 81 mg Calcium Carbonate (Tums) 500 mg PO BID [facility] Last Admin: 10/12/16 18:18 Dose: 500 mg Divalproex Sodium (Depakote Sprinkles) 125 mg PO BID [facility] Last Admin: 10/12/16 18:18 Dose: 125 mg Guaifenesin (Robitussin) 100 mg PO Q4H PRN PRN Reason: Cough Last Admin: 10/12/16 08:38 Dose: 100 mg Levothyroxine Sodium (Synthroid) 37.5 mcg PO DAILY@0630 [facility] Last Admin: 10/11/16 05:30 Dose: 37.5 mcg Metformin HCl (Glucophage) 1,000 mg PO BIDCC [facility] Last Admin: 10/12/16 17:00 Dose: 1,000 mg Pantoprazole Sodium (Protonix Ec Tab) 40 mg PO DAILY [facility] Last Admin: 10/12/16 11:17 Dose: 40 mg Quetiapine Fumarate (Seroquel) 50 mg PO DAILY [facility] Last Admin: 10/12/16 11:17 Dose: 50 mg Quetiapine Fumarate (Seroquel) 100 mg PO HS [facility] Last Admin: 10/11/16 21:07 Dose: 100 mg Rosuvastatin Calcium (Crestor) 5 mg PO HS [facility] Last Admin: 10/11/16 21:05 Dose: 5 mg Fluticasone/Salmeterol (Advair Diskus 250/50) 1 puff INH RQ12 [facility] Last Admin: 10/12/16 08:59 Dose: 1 puff Tamsulosin HCl (Flomax) 0.4 mg PO DAILY [facility] Last Admin: 10/12/16 11:17 Dose: 0.4 mg - Labs Labs: 10/12/16 11:40 10/12/16 11:40 - Constitutional Appears: Well - Head Exam Head Exam: ATRAUMATIC, NORMAL INSPECTION, NORMOCEPHALIC - Eye Exam Eye Exam: EOMI, Normal appearance, PERRL Pupil Exam: NORMAL ACCOMODATION, PERRL - ENT Exam ENT Exam: Mucous Membranes Moist, Normal Exam - Neck Exam Neck Exam: Full ROM, Normal Inspection. absent: Lymphadenopathy - Respiratory Exam Respiratory Exam: Decreased Breath Sounds - Cardiovascular Exam Cardiovascular Exam: REGULAR RHYTHM, +S1, +S2 - GI/Abdominal Exam GI & Abdominal Exam: Soft, Diminished Bowel Sounds - Rectal Exam Rectal Exam: Deferred Assessment and Plan (1) Abnormal CXR (chest x-ray) Status: Acute (2) COPD (chronic obstructive pulmonary disease) Status: Acute (3) COPD exacerbation Status: Acute (4) Cardiac disease Status: Acute (5) Depression Status: Acute (6) Diabetes Status: Acute - Assessment and Plan (Free Text) Plan: Case seen and discussed Continue same jovi asp, crestor synthyroid flomax depakote Accu-Cheks lantus Physical therapy spiriva labs next am
[2016-10-13] MEDS: Levothyroxine 75 MCG TAB PO SCH (05:39)
--- NOTE | 2016-10-13 07:20 | CP.PCM.PN ---
Subjective - Date & Time of Evaluation Date of Evaluation: 10/13/16 Time of Evaluation: 10:30 - Subjective Subjective: PGY 2 Medicine Note- Dr. Loren Solis's service Pt seen and examined in no acute distress. Patient states that he occasionally has trouble breathing however not at the moment. He reports that he is eating without complaints. He denies fevers, chills, nausea, vomiting, diarrhea at this time. Objective - Vital Signs/Intake and Output Vital Signs (last 24 hours): Temp Pulse Resp BP Pulse Ox 98.1 F 61 20 108/68 98 10/13/16 00:00 10/13/16 00:00 10/13/16 00:00 10/13/16 00:00 10/13/16 00:00 Intake and Output: 10/13/16 10/13/16 06:59 18:59 Intake Total 150 Balance 150 - Medications Medications: Current Medications Acetaminophen (Tylenol 325mg Tab) 650 mg PO Q6 PRN PRN Reason: Pain, moderate (4-7) Apixaban (Eliquis) 2.5 mg PO BID [facility] Last Admin: 10/12/16 18:18 Dose: 2.5 mg Aspirin (Aspirin Chewable) 81 mg PO DAILY [facility] Last Admin: 10/12/16 11:17 Dose: 81 mg Calcium Carbonate (Tums) 500 mg PO BID [facility] Last Admin: 10/12/16 18:18 Dose: 500 mg Divalproex Sodium (Depakote Sprinkles) 125 mg PO BID [facility] Last Admin: 10/12/16 18:18 Dose: 125 mg Guaifenesin (Robitussin) 100 mg PO Q4H PRN PRN Reason: Cough Last Admin: 10/12/16 08:38 Dose: 100 mg Levothyroxine Sodium (Synthroid) 37.5 mcg PO DAILY@0630 [facility] Last Admin: 10/13/16 05:39 Dose: 37.5 mcg [facility] Last Admin: 10/12/16 17:00 Dose: 1,000 mg Pantoprazole Sodium (Protonix Ec Tab) 40 mg PO DAILY [facility] Last Admin: 10/12/16 11:17 Dose: 40 mg Quetiapine Fumarate (Seroquel) 50 mg PO DAILY [facility] Last Admin: 10/12/16 11:17 Dose: 50 mg Quetiapine Fumarate (Seroquel) 100 mg PO HS [facility] Last Admin: 10/12/16 21:12 Dose: 100 mg Rosuvastatin Calcium (Crestor) 5 mg PO HS [facility] Last Admin: 10/12/16 21:11 Dose: 5 mg Fluticasone/Salmeterol (Advair Diskus 250/50) 1 puff INH RQ12 [facility] Last Admin: 10/12/16 19:28 Dose: 1 puff Tamsulosin HCl (Flomax) 0.4 mg PO DAILY [facility] Last Admin: 10/12/16 11:17 Dose: 0.4 mg - Labs Labs: 10/12/16 11:40 10/12/16 11:40 - Constitutional Appears: Non-toxic, No Acute Distress, Cachectic - Head Exam Head Exam: ATRAUMATIC, NORMAL INSPECTION, NORMOCEPHALIC - Eye Exam Eye Exam: EOMI, Normal appearance, PERRL Pupil Exam: NORMAL ACCOMODATION - ENT Exam ENT Exam: Mucous Membranes Dry - Neck Exam Neck Exam: Full ROM - Respiratory Exam Respiratory Exam: Rales (mid- lower lung tolbert), Wheezes, NORMAL BREATHING PATTERN - Cardiovascular Exam Cardiovascular Exam: +S1, +S2 - GI/Abdominal Exam GI & Abdominal Exam: Soft, Normal Bowel Sounds - Extremities Exam Extremities Exam: Full ROM, Normal Capillary Refill - Back Exam Back Exam: Full ROM - Neurological Exam Neurological Exam: Alert, Awake, Oriented x3 - Psychiatric Exam Psychiatric exam: Normal Affect, Normal Mood - Skin Skin Exam: Dry, Intact, Warm Assessment and Plan - Assessment and Plan (Free Text) Assessment: L2 Compression Fracture Per last session 10/12: Patient is still unsteady on his feet. He will benefit from continued therapy. Will benefit from being out of bed to chair as tolerated Follow Ortho and neurosurgery recommendations: bed rest and physical therapy No neurosurgical intervention at this time Imaging: CT confirms acute appearing L2 compression fracture, no retropulsion seen per report. Ill defined soft tissue density seen, ? edema. Would recommend attempt MRI (unsure if patient will tolerate and cooperate) for further visualization. * Neurosurgery Consulted, Dr. Rose. Lumbar XRAY 08/11: - 1. Age indeterminate acute superior endplate compression fracture in the L2 vertebral body with 4 mm retrolisthesis. 2. Mild multilevel degenerative disc disease, worse at L5-S1. see full report. 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 10/12: Psychiatric management per Dr. Bajwa. No recent reported incidences of behavioral disturbances for over 1 week. -Continue seroquel 50 mg po QD and seroquel 100 mg po HS and depakote sprinkles 125 mg po BID per psych recs -Patient off Remeron since 07/31/16. Remeron recommended by psych. However, patient's mood stable. Will add as needed. -Will discuss with Dr. Bajwa about how often the behavioral disturbances are occurring in order for further placement into fdc Depression No apparent SI/HI. Continue to Monitor Psych Dr. Bajwa consulted, help appreciated. Management as above Nodular opacity in chest Patient needs to f/u outpatient per Dr. Hayden for nodular opacity in chest + COPD. (recommend f/u noncontrast chest CT in Dec 2016) Pulm consult - Dr. Hayden - help appreciated -Chest CT - extensive bilateral fine nodular interstitial infiltrate both lower lobes. dense pleural based consolidation right lower lobe. subpleural emphysema. mild centrilobular pulmonary emphysema. left upper lobe nodules. 7mm and 9mm. recommend f/u noncontrast chest CT in 3 months. Multiple left upper lobe nodular calcifications, likely granulomatous. probable small airways disease posterior right upper lobe. findings are nonspecific and may reflect infection or inflammatory disease. COPD Continue Advair Pulm consult - Dr. Nagy - help appreciated DM Stable Continue Metformin -Previously on RISS, Lantus 6U SC HS -accuchecks. Hypothyroid Continue synthroid 37.5 mcg daily Check Thyroid studies to monitor as patient has not had bloodwork in over 8 weeks BPH Continue with Flomax Chest Pain Resolved. As per Dr. 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 ROMIs negative EKG with LBBB as prior EKGs have also shown ECHO - left ventricular is normal size. there is mild to moderate concentric left ventricular hypertrophy. the systolic function is midly to moderately impaired. septal hypokinesis. mild to moderate aortic regurgitation. mild pulmonary hypertension. (please see full report) Hx of cardiac disease Continue Eliquis, ASA, Crestor. Onychomycosis -Resolved -Thickened toenails, mild tenderness, with yellowing -Patient had toenails debrided 10/12 per Podiatry Prophylactic measure Protonix 40 mg PO daily Eliquis 2.5 mg Po BID Social work referral Labs ordered MWF PT recommends [facility] Disposition Discharge to rehab facility, pending authorization and acceptance. Need documentations of good behavior. Spoke with case management on 10/13: Patient is in need of green card and documentation papers before he can be accepted at the appropriate fdc facility. Patient lost his documentation awhile back and is homeless. A copy of this information is available within one of the health insurance registries. Currently still awaiting a copy of these records. Case discussed with attending. All medical management as per Dr. Luba Solis.
[2016-10-13] MEDS: Fluticasone-Salmeterol 250-50mcg Diskus INH SCH ×2 (07:55→19:39)
[2016-10-13] MEDS: Pantoprazole 40 mg EC Tab PO SCH (09:45)
[2016-10-13] MEDS: Calcium Carbonate 500 mg Chewable Antacid Tab PO SCH ×2 (09:48→18:13)
[2016-10-13] MEDS: Divalproex 125 mg Sprinkle Capsule PO SCH ×2 (09:48→18:13)
--- NOTE | 2016-10-13 15:42 | CP.PCM.PN ---
Subjective - Date & Time of Evaluation Date of Evaluation: 10/13/16 Time of Evaluation: 07:00 - Subjective Subjective: clinically same Objective - Vital Signs/Intake and Output Vital Signs (last 24 hours): Temp Pulse Resp BP Pulse Ox 97.7 F 63 20 109/62 95 10/13/16 15:00 10/13/16 15:00 10/13/16 15:00 10/13/16 15:00 10/13/16 15:00 Intake and Output: 10/13/16 10/13/16 06:59 18:59 Intake Total 150 Balance 150 - Medications Medications: Current Medications Acetaminophen (Tylenol 325mg Tab) 650 mg PO Q6 PRN PRN Reason: Pain, moderate (4-7) Last Admin: 10/13/16 09:44 Dose: 650 mg Apixaban (Eliquis) 2.5 mg PO BID [facility] Last Admin: 10/13/16 09:48 Dose: 2.5 mg Aspirin (Aspirin Chewable) 81 mg PO DAILY [facility] Last Admin: 10/13/16 09:45 Dose: 81 mg Calcium Carbonate (Tums) 500 mg PO BID [facility] Last Admin: 10/13/16 09:48 Dose: 500 mg Divalproex Sodium (Depakote Sprinkles) 125 mg PO BID [facility] Last Admin: 10/13/16 09:48 Dose: 125 mg Guaifenesin (Robitussin) 100 mg PO Q4H PRN PRN Reason: Cough Last Admin: 10/12/16 08:38 Dose: 100 mg Levothyroxine Sodium (Synthroid) 37.5 mcg PO DAILY@0630 [facility] Last Admin: 10/13/16 05:39 Dose: 37.5 mcg Metformin HCl (Glucophage) 1,000 mg PO BIDCC [facility] Last Admin: 10/13/16 08:54 Dose: 1,000 mg Pantoprazole Sodium (Protonix Ec Tab) 40 mg PO DAILY [facility] Last Admin: 10/13/16 09:45 Dose: 40 mg Quetiapine Fumarate (Seroquel) 50 mg PO DAILY [facility] Last Admin: 10/13/16 09:45 Dose: 50 mg Quetiapine Fumarate (Seroquel) 100 mg PO HS [facility] Last Admin: 10/12/16 21:12 Dose: 100 mg Rosuvastatin Calcium (Crestor) 5 mg PO [facility] Last Admin: 10/12/16 21:11 Dose: 5 mg Fluticasone/Salmeterol (Advair Diskus 250/50) 1 puff INH RQ12 [facility] Last Admin: 10/13/16 07:55 Dose: 1 puff Tamsulosin HCl (Flomax) 0.4 mg PO DAILY [facility] Last Admin: 10/13/16 09:45 Dose: 0.4 mg - Labs Labs: 10/12/16 11:40 10/12/16 11:40 - Constitutional Appears: Well - Head Exam Head Exam: ATRAUMATIC, NORMAL INSPECTION, NORMOCEPHALIC - Eye Exam Eye Exam: EOMI, Normal appearance, PERRL Pupil Exam: NORMAL ACCOMODATION, PERRL - ENT Exam ENT Exam: Mucous Membranes Moist, Normal Exam - Neck Exam Neck Exam: Full ROM, Normal Inspection. absent: Lymphadenopathy - Respiratory Exam Respiratory Exam: Decreased Breath Sounds - Cardiovascular Exam Cardiovascular Exam: REGULAR RHYTHM, +S1, +S2 - GI/Abdominal Exam GI & Abdominal Exam: Soft, Diminished Bowel Sounds - Rectal Exam Rectal Exam: Deferred Assessment and Plan (1) Abnormal CXR (chest x-ray) Status: Acute (2) COPD (chronic obstructive pulmonary disease) Status: Acute (3) COPD exacerbation Status: Acute (4) Cardiac disease Status: Acute (5) Depression Status: Acute (6) Diabetes Status: Acute - Assessment and Plan (Free Text) Plan: Patient comfortable No acute event jovi asp, crestor synthyroid flomax depakote Accu-Cheks lantus Physical therapy spiriva fup with labs
[2016-10-14] MEDS: Levothyroxine 75 MCG TAB PO SCH (05:40)
[2016-10-14] MEDS: Fluticasone-Salmeterol 250-50mcg Diskus INH SCH ×2 (08:52→19:14)
[2016-10-14] MEDS: Divalproex 125 mg Sprinkle Capsule PO SCH ×2 (09:00→18:00)
[2016-10-14] MEDS: Calcium Carbonate 500 mg Chewable Antacid Tab PO SCH ×2 (09:00→18:00)
[2016-10-14] MEDS: Pantoprazole 40 mg EC Tab PO SCH (09:00)
[2016-10-14 11:41] LABS: BASO % 0.2 % (0.0-2.0); EOS % 0.1 % (0.0-4.0); HEMATOCRIT 29.8 % (35.0-51.0); LYMPH # 0.6 K/uL (1.0-4.3); LYMPH % 5.6 % (20.0-40.0); MEAN CELL VOLUME 85.1 fL (80.0-94.0); MEAN CORPUSCULAR HEMOGLOBIN 27.2 pg (27.0-31.0); MEAN PLATELET VOLUME 8.4 fL (7.2-11.7); PLATELET COUNT 252 K/uL (130-400); RED CELL DISTRIBUTION WIDTH 17.1 % (11.5-14.5); WHITE BLOOD COUNT 11.1 K/uL (4.8-10.8)
[2016-10-14 11:47] LABS: CHLORIDE 100 mmol/L (98-107); POTASSIUM 4.3 mmol/L (3.6-5.2); SODIUM 138 mmol/L (132-148)
[2016-10-14 11:49] LABS: GFR AFRICAN-AMERICAN > 60
[2016-10-14 11:50] LABS: ALB/GLOB RATIO 0.9 (1.0-2.1); ALKALINE PHOSPHATASE 54 U/L (38-126); ALT/SGPT 24 U/L (21-72); AST/SGOT 13 U/L (17-59); BILIRUBIN,TOTAL 0.3 mg/dL (0.2-1.3); BLOOD UREA NITROGEN 30 mg/dL (9-20); CARBON DIOXIDE 24 mmol/L (22-30); GLUCOSE,RANDOM 223 mg/dL (75-110); PHOSPHOROUS 3.1 mg/dL (2.5-4.5); TOTAL PROTEIN 6.5 g/dL (6.3-8.3)
[2016-10-14 11:51] LABS: MAGNESIUM 1.6 mg/dL (1.6-2.3)
[2016-10-14 12:06] LABS: NEUTROPHIL 78 % (50-75); TOTAL CELLS COUNTED 100
[2016-10-14 12:21] LABS: THYROID STIMULATING HORMONE 3.58 mIU/L (0.46-4.68)
--- NOTE | 2016-10-14 15:57 | CP.PCM.PN ---
Subjective - Date & Time of Evaluation Date of Evaluation: 10/14/16 Time of Evaluation: 15:55 - Subjective Subjective: Service for Dr. Loren Solis Pt seen and examined at bedside. No acute distress. No events overnight. No fevers, chills, vomiting, diarrhea. Pt is AO x 2. Objective - Vital Signs/Intake and Output Vital Signs (last 24 hours): Temp Pulse Resp BP Pulse Ox 98.9 F 97 H 20 112/64 95 10/14/16 07:05 10/14/16 07:05 10/14/16 07:05 10/14/16 07:05 10/14/16 07:05 Intake and Output: 10/14/16 10/14/16 06:59 18:59 Intake Total 240 Output Total 503 Balance -263 - Medications Medications: Current Medications Acetaminophen (Tylenol 325mg Tab) 650 mg PO Q6 PRN PRN Reason: Pain, moderate (4-7) Last Admin: 10/13/16 09:44 Dose: 650 mg Apixaban (Eliquis) 2.5 mg PO BID [facility] Last Admin: 10/14/16 09:00 Dose: 2.5 mg Aspirin (Aspirin Chewable) 81 mg PO DAILY [facility] Last Admin: 10/14/16 09:00 Dose: 81 mg Calcium Carbonate (Tums) 500 mg PO BID [facility] Last Admin: 10/14/16 09:00 Dose: 500 mg Divalproex Sodium (Depakote Sprinkles) 125 mg PO BID [facility] Last Admin: 10/14/16 09:00 Dose: 125 mg Guaifenesin (Robitussin) 100 mg PO Q4H PRN PRN Reason: Cough Last Admin: 10/12/16 08:38 Dose: 100 mg Levothyroxine Sodium (Synthroid) 37.5 mcg PO DAILY@0630 [facility] Last Admin: 10/14/16 05:40 Dose: 37.5 mcg [facility] Admin: 10/14/16 08:56 Dose: 1,000 mg Pantoprazole Sodium (Protonix Ec Tab) 40 mg PO DAILY [facility] Last Admin: 10/14/16 09:00 Dose: 40 mg Quetiapine Fumarate (Seroquel) 50 mg PO DAILY [facility] Last Admin: 10/14/16 09:00 Dose: 50 mg Quetiapine Fumarate (Seroquel) 100 mg PO HS [facility] Last Admin: 10/13/16 21:19 Dose: 100 mg Rosuvastatin Calcium (Crestor) 5 mg PO HS [facility] Last Admin: 10/13/16 21:19 Dose: 5 mg Fluticasone/Salmeterol (Advair Diskus 250/50) 1 puff INH RQ12 [facility] Last Admin: 10/14/16 08:52 Dose: 1 puff Tamsulosin HCl (Flomax) 0.4 mg PO DAILY [facility] Last Admin: 10/14/16 09:00 Dose: 0.4 mg - Labs Labs: 10/14/16 11:30 10/14/16 11:30 - Constitutional Appears: Non-toxic, No Acute Distress, Chronically Ill - Head Exam Head Exam: ATRAUMATIC, NORMAL INSPECTION, NORMOCEPHALIC - Eye Exam Eye Exam: EOMI - ENT Exam ENT Exam: Mucous Membranes Moist - Neck Exam Neck Exam: Full ROM, Normal Inspection - Respiratory Exam Respiratory Exam: NORMAL BREATHING PATTERN. absent: Respiratory Distress - Cardiovascular Exam Cardiovascular Exam: +S1, +S2 - GI/Abdominal Exam GI & Abdominal Exam: Soft, Normal Bowel Sounds. absent: Tenderness - Extremities Exam Extremities Exam: Full ROM, Normal Inspection - Neurological Exam Neurological Exam: Alert, Awake, CN II-XII Intact. absent: Oriented x3 - Psychiatric Exam Psychiatric exam: Flat Affect - Skin Skin Exam: Dry, Intact, Normal Color, Warm Assessment and Plan - Assessment and Plan (Free Text) Assessment: L2 Compression Fracture Per last PT session 10/12: Patient is still unsteady on his feet. He will benefit from continued therapy. Will benefit from being out of bed to chair as tolerated Follow Ortho and neurosurgery recommendations: bed rest and physical therapy No neurosurgical intervention at this time Imaging: CT confirms acute appearing L2 compression fracture, no retropulsion seen per report. Ill defined soft tissue density seen, ? edema. Would recommend attempt MRI (unsure if patient will tolerate and cooperate) for further visualization. * Neurosurgery Consulted, Dr. Rose. Lumbar XRAY 08/11: - 1. Age indeterminate acute superior endplate compression fracture in the L2 vertebral body with 4 mm retrolisthesis. 2. Mild multilevel degenerative disc disease, worse at L5-S1. see full report. 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 Psychiatric management per Dr. Bajwa. No recent reported incidences of behavioral disturbances for over 1 week. -Continue seroquel 50 mg po QD and seroquel 100 mg po HS and depakote sprinkles 125 mg po BID per psych recs -Patient off Remeron since 07/31/16. Remeron recommended by psych. However, patient's mood stable. Will add as needed. -Will discuss with Dr. Bajwa about how often the behavioral disturbances are occurring in order for further placement into [facility] Depression No apparent SI/HI. Continue to Monitor Psych Dr. Bajwa consulted, help appreciated. Management as above Nodular opacity in chest Patient needs to f/u outpatient per Dr. Hayden for nodular opacity in chest + COPD. (recommend f/u noncontrast chest CT in Dec 2016) Pulm consult - Dr. Hayden - help appreciated -Chest CT - extensive bilateral fine nodular interstitial infiltrate both lower lobes. dense pleural based consolidation right lower lobe. subpleural emphysema. mild centrilobular pulmonary emphysema. left upper lobe nodules. 7mm and 9mm. recommend f/u noncontrast chest CT in 3 months. Multiple left upper lobe nodular calcifications, likely granulomatous. probable small airways disease posterior right upper lobe. findings are nonspecific and may reflect infection or inflammatory disease. COPD Continue Advair Pulm consult - Dr. Nagy - help appreciated DM Stable Continue Metformin -Previously on RISS, Lantus 6U SC HS -accuchecks. Hypothyroid Continue synthroid 37.5 mcg daily BPH Continue with Flomax Chest Pain Resolved. 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 ROMIs negative EKG with LBBB as prior EKGs have also shown ECHO - left ventricular is normal size. there is mild to moderate concentric left ventricular hypertrophy. the systolic function is midly to moderately impaired. septal hypokinesis. mild to moderate aortic regurgitation. mild pulmonary hypertension. (please see full report) Hx of cardiac disease Continue Eliquis, ASA, Crestor. Onychomycosis -Resolved -Thickened toenails, mild tenderness, with yellowing -Patient had toenails debrided 10/12 per Podiatry Prophylactic measure Protonix 40 mg PO daily Eliquis 2.5 mg Po BID Social work referral Labs ordered MWF PT recommends [facility] Disposition Discharge to rehab facility, pending authorization and acceptance. Need documentations of good behavior. Case discussed with attending. All medical management as per Dr. Luba Solis.
--- NOTE | 2016-10-14 18:03 | CP.PCM.PN ---
Subjective - Date & Time of Evaluation Date of Evaluation: 10/14/16 Time of Evaluation: 07:00 - Subjective Subjective: clinically same Objective - Vital Signs/Intake and Output Vital Signs (last 24 hours): Temp Pulse Resp BP Pulse Ox 99.4 F 89 20 98/50 L 97 10/14/16 17:09 10/14/16 17:09 10/14/16 17:09 10/14/16 17:09 10/14/16 17:09 Intake and Output: 10/14/16 10/14/16 06:59 18:59 Intake Total 240 Output Total 503 Balance -263 - Medications Medications: Current Medications Acetaminophen (Tylenol 325mg Tab) 650 mg PO Q6 PRN PRN Reason: Pain, moderate (4-7) Last Admin: 10/13/16 09:44 Dose: 650 mg Apixaban (Eliquis) 2.5 mg PO BID [facility] Last Admin: 10/14/16 09:00 Dose: 2.5 mg Aspirin (Aspirin Chewable) 81 mg PO DAILY [facility] Last Admin: 10/14/16 09:00 Dose: 81 mg Calcium Carbonate (Tums) 500 mg PO BID [facility] Last Admin: 10/14/16 09:00 Dose: 500 mg Divalproex Sodium (Depakote Sprinkles) 125 mg PO BID [facility] Last Admin: 10/14/16 09:00 Dose: 125 mg Guaifenesin (Robitussin) 100 mg PO Q4H PRN PRN Reason: Cough Last Admin: 10/12/16 08:38 Dose: 100 mg Levothyroxine Sodium (Synthroid) 37.5 mcg PO DAILY@0630 [facility] Last Admin: 10/14/16 05:40 Dose: 37.5 mcg [facility] Last Admin: 10/14/16 17:53 Dose: 1,000 mg Pantoprazole Sodium (Protonix Ec Tab) 40 mg PO DAILY [facility] Last Admin: 10/14/16 09:00 Dose: 40 mg Quetiapine Fumarate (Seroquel) 50 mg PO DAILY [facility] Last Admin: 10/14/16 09:00 Dose: 50 mg Quetiapine Fumarate (Seroquel) 100 mg PO [facility] Last Admin: 10/13/16 21:19 Dose: 100 mg Rosuvastatin Calcium (Crestor) 5 mg PO HS [facility] Last Admin: 10/13/16 21:19 Dose: 5 mg Fluticasone/Salmeterol (Advair Diskus 250/50) 1 puff INH RQ12 [facility] Last Admin: 10/14/16 08:52 Dose: 1 puff Tamsulosin HCl (Flomax) 0.4 mg PO DAILY [facility] Last Admin: 10/14/16 09:00 Dose: 0.4 mg - Labs Labs: 10/14/16 11:30 10/14/16 11:30 - Constitutional Appears: Well - Head Exam Head Exam: ATRAUMATIC, NORMAL INSPECTION, NORMOCEPHALIC - Eye Exam Eye Exam: EOMI, Normal appearance, PERRL Pupil Exam: NORMAL ACCOMODATION, PERRL - ENT Exam ENT Exam: Mucous Membranes Moist, Normal Exam - Neck Exam Neck Exam: Full ROM, Normal Inspection. absent: Lymphadenopathy - Respiratory Exam Respiratory Exam: Decreased Breath Sounds - Cardiovascular Exam Cardiovascular Exam: REGULAR RHYTHM, +S1, +S2 - GI/Abdominal Exam GI & Abdominal Exam: Soft, Diminished Bowel Sounds - Rectal Exam Rectal Exam: Deferred Assessment and Plan (1) Abnormal CXR (chest x-ray) Status: Acute (2) COPD (chronic obstructive pulmonary disease) Status: Acute (3) COPD exacerbation Status: Acute (4) Cardiac disease Status: Acute (5) Depression Status: Acute (6) Diabetes Status: Acute - Assessment and Plan (Free Text) Plan: Patient hemodynamically stable Seen and discussed at bedside jovi asp, crestor synthyroid flomax depakote Accu-Cheks lantus Physical therapy Sina Eliquis
[2016-10-14] MEDS ORDERED: Sodium Chloride 0.9% 1,000 ML IV ONE (23:42)
[2016-10-14] MEDS ORDERED: DOPamine 400mg/250ml D5W 400 MG/250 ML BAG IV PRN (23:46)
--- NOTE | 2016-10-14 23:50 | PCM.SURG1 ---
Surgeon's Initial Post Op Note - Surgeon's Notes Surgeon: Dr. Arredondo Refractory Worker: none Pre-Operative Diagnosis: cardiac arrest Operative Findings: cardiac arrest Post-Operative Diagnosis: cardiac arrest Operation Performed: STEVEN RONDON was called suddenly. Responded immediately. Patient was immediately intubated, left femoral TLC was inserted. After 28 minutes of CPR,and defibrillation patient had a amish of spontaneous circulation. Patient was transferred to the intensive care unit. Left femoral TLC was insertedbecause of the emergency nature, unsterile condition. Specimen/Specimens Removed: none Estimated Blood Loss: EBL {In ML}: 0 Date of Surgery/Procedure: 10/14/16 Time of Surgery/Procedure: 23:50
--- NOTE | 2016-10-14 23:52 | PCM.SURG1 ---
Surgeon's Initial Post Op Note - Surgeon's Notes Surgeon: Arnulfo Site Acquisition Specialist: none Pre-Operative Diagnosis: cardiac arrest anoxia Operative Findings: cardiac arrest anoxia Post-Operative Diagnosis: cardiac arrest anoxia Operation Performed: patient sustained a cardiac arrest. Patient was transferred to the intensive care unit after resuscitation. patient is comatose to currently, and having jerky movements. Therapeutic hypothermia initiated. Right jugular TLC was inserted under sterile. Without any complication. Specimen/Specimens Removed: none Estimated Blood Loss: EBL {In ML}: 0 Date of Surgery/Procedure: 10/14/16 Time of Surgery/Procedure: 23:52
--- NOTE | 2016-10-14 23:56 | CP.PCM.CON ---
History of Present Illness - History of Present Illness History of Present Illness: STEVEN RONDON was called. Immediately responded to the CODE BLUE. Patient is a 81-year-old male with a history of diabetes, hypertension, congestive heart failure, asthma, and COPD and chronic smoker. Patient has a significant lung nodules and emphysema. Patient was doing well. He ate his dinner. He was talking to the one-to-one person. At the time he was doing okay. Suddenly become unresponsive, and become pulseless, immediately STEVEN RONDON was called. The team responded. Intubated, the is was inserted, secured started. Patient regained the pulse on the brought to the intensive care unit Past medical history: Congestive heart failure, hypertension, diabetes, asthma and a severe COPD. History of smoking. Patient is a [facility] resident. No family at this time. Awaiting for guardianship Review of system noted from the chart patient is currently unresponsive and is on ventilator. NG tube, Barrett catheter is a Vital signs reviewed No neck vein distention noted Chest good air entry bilaterally, no wheezing or rales noted CVS regular heart sound, no murmur noted Abdomen soft, nontender. Extremities no pedal edema Patient is comatose to Labs and x-ray ABG ordered today Assessment and recommendation: 81-year-old male with history of COPD, history of smoking, emphysematous lung disease, hypertension diabetes, awaiting for rehabilitation [facility] placement. Patient sustained a cardiac arrest of unclear source. Currently unstable. Hypotensive. Possible anoxia. We will initiate therapeutic hypothermia. Labs ordered today. Myoclonic jerk noted. Continue the anti-conversant. DVT and gastric ulcer prophylaxis advised. Patient is already on antibiotic regulation. Overall prognosis very poor. Past Patient History - Past Medical History & Family History Past Medical History?: Yes - Past Social History Smoking Status: Unknown If Ever Smoked - CARDIAC Hx Congestive Heart Failure: Yes Hx Hypertension: Yes - PULMONARY Hx Chronic Obstructive Pulmonary Disease (COPD): Yes - NEUROLOGICAL Hx Alzheimer's Disease: Yes Hx Dementia: Yes - ENDOCRINE/METABOLIC Hx Diabetes Mellitus Type 2: Yes Hx Hypothyroidism: Yes - MUSCULOSKELETAL/RHEUMATOLOGICAL Hx Arthritis: Yes - PSYCHIATRIC Hx Depression: Yes Hx Substance Use: No - SURGICAL HISTORY Hx Appendectomy: Yes - ANESTHESIA Hx Anesthesia: Yes Hx Anesthesia Reactions: No Hx Malignant Hyperthermia: No Has any member of the family had a problem w/ anesthesia?: No Meds Allergies/Adverse Reactions: Allergies Allergy/AdvReac Type Severity Reaction Status Date / Time No Known Allergies Allergy Unverified 07/15/16 13:18 - Medications Medications: Current Medications Acetaminophen (Tylenol 325mg Tab) 650 mg PO Q6 PRN PRN Reason: Pain, moderate (4-7) Last Admin: 10/13/16 09:44 Dose: 650 mg Apixaban (Eliquis) 2.5 mg PO BID [facility] Last Admin: 10/14/16 18:00 Dose: 2.5 mg Aspirin (Aspirin Chewable) 81 mg PO DAILY [facility] Last Admin: 10/14/16 09:00 Dose: 81 mg Divalproex Sodium (Depakote Sprinkles) 125 mg PO BID [facility] Last Admin: 10/14/16 18:00 Dose: 125 mg Levetiracetam 500 mg/ Dextrose 105 mls @ 420 mls/hr IVPB Q12H [facility] Sodium Chloride (Sodium Chloride 0.9%) 1,000 mls @ 1,000 mls/hr IV .Q1H ONE Stop: 10/15/16 00:41 Sodium Chloride (Sodium Chloride 0.9%) 1,000 mls @ 100 mls/hr IV .Q10H [facility] Dopamine HCl/Dextrose (Dopamine 400mg/250ml D5w) 400 mg in 250 mls @ 4.423 mls/ hr IV .Q24H PRN; Protocol; 2 MCG/KG/MIN PRN Reason: TITRATE PER MD ORDER Levothyroxine Sodium (Synthroid) 37.5 mcg PO DAILY@0630 [facility] Last Admin: 10/14/16 05:40 Dose: 37.5 mcg Pantoprazole Sodium (Protonix Inj) 40 mg IVP DAILY [facility] Rosuvastatin Calcium (Crestor) 5 mg PO HS [facility] Last Admin: 10/13/16 21:19 Dose: 5 mg Tamsulosin HCl (Flomax) 0.4 mg PO DAILY [facility] Last Admin: 10/14/16 09:00 Dose: 0.4 mg Results - Vital Signs Recent Vital Signs: Last Vital Signs Temp 97.1 F L 10/14/16 22:47 Pulse 81 10/14/16 23:00 Resp 27 H 10/14/16 23:00 BP 124/55 L 10/14/16 22:47 Pulse Ox 100 10/14/16 23:00 - Labs Result Diagrams: 10/14/16 11:30 10/14/16 11:30 Labs: Laboratory Results - last 24 hr 10/14/16 10/14/16 10/14/16 07:57 11:08 11:30 WBC 11.1 H RBC 3.50 L Hgb 9.5 L Hct 29.8 L MCV 85.1 MCH 27.2 MCHC 32.0 L RDW 17.1 H Plt Count 252 MPV 8.4 Neut % (Auto) 85.1 H Lymph % (Auto) 5.6 L [place] % (Auto) 9.0 Eos % (Auto) 0.1 Baso % (Auto) 0.2 Neut # 9.4 H Lymph # 0.6 L [place] # 1.0 H Eos # 0.0 Baso # 0.0 Neutrophils % (Manual) 78 H Band Neutrophils % 8 H Lymphocytes % (Manual) 6 L Monocytes % (Manual) 8 Platelet Estimate Normal Hypochromasia (manual) Slight Poikilocytosis (manual Slight Anisocytosis (manual) Slight Microcytosis (manual) Slight Macrocytosis (manual) Slight Target Cells Slight Tear Drop Cells Slight Ovalocytes Slight Schistocytes Slight Sodium Potassium Chloride Carbon Dioxide Anion Gap BUN Creatinine Est GFR ( Amer) Est GFR (Non-Af Amer) POC Glucose (mg/dL) 169 H 241 H Random Glucose Calcium Phosphorus Magnesium Total Bilirubin AST ALT Alkaline Phosphatase Total Protein Albumin Globulin Albumin/Globulin Ratio Free T4 TSH 3rd Generation 10/14/16 10/14/16 10/14/16 11:30 13:47 16:46 WBC RBC Hgb Hct MCV MCH MCHC RDW Plt Count MPV Neut % (Auto) Lymph % (Auto) [place] % (Auto) Eos % (Auto) Baso % (Auto) Neut # Lymph # [place] # Eos # Baso # Neutrophils % (Manual) Band Neutrophils % Lymphocytes % (Manual) Monocytes % (Manual) Platelet Estimate Hypochromasia (manual) Poikilocytosis (manual Anisocytosis (manual) Microcytosis (manual) Macrocytosis (manual) Target Cells Tear Drop Cells Ovalocytes Schistocytes Sodium 138 Potassium 4.3 Chloride 100 Carbon Dioxide 24 Anion Gap 18 BUN 30 H Creatinine 0.7 L Est GFR ( Amer) > 60 Est GFR (Non-Af Amer) > 60 POC Glucose (mg/dL) 178 H Random Glucose 223 H Calcium 9.0 Phosphorus 3.1 Magnesium 1.6 Total Bilirubin 0.3 AST 13 L ALT 24 Alkaline Phosphatase 54 Total Protein 6.5 Albumin 3.0 L Globulin 3.5 Albumin/Globulin Ratio 0.9 L Free T4 0.91 TSH 3rd Generation 3.58 10/14/16 21:24 WBC RBC Hgb Hct MCV MCH MCHC RDW Plt Count MPV Neut % (Auto) Lymph % (Auto) [place] % (Auto) Eos % (Auto) Baso % (Auto) Neut # Lymph # [place] # Eos # Baso # Neutrophils % (Manual) Band Neutrophils % Lymphocytes % (Manual) Monocytes % (Manual) Platelet Estimate Hypochromasia (manual) Poikilocytosis (manual Anisocytosis (manual) Microcytosis (manual) Macrocytosis (manual) Target Cells Tear Drop Cells Ovalocytes Schistocytes Sodium Potassium Chloride Carbon Dioxide Anion Gap BUN Creatinine Est GFR ( Amer) Est GFR (Non-Af Amer) POC Glucose (mg/dL) 194 H Random Glucose Calcium Phosphorus Magnesium Total Bilirubin AST ALT Alkaline Phosphatase Total Protein Albumin Globulin Albumin/Globulin Ratio Free T4 TSH 3rd Generation
--- NOTE | 2016-10-15 00:43 | CT ---
EXAM: CT Head Without Intravenous Contrast CLINICAL HISTORY: 81 years old, male; Signs and symptoms; Other: Pre code freeze TECHNIQUE: Axial computed tomography images of the head/brain without intravenous contrast. All CT scans at this facility use one or more dose reduction techniques, viz.: automated exposure control; ma/kV adjustment per patient size (including targeted exams where dose is matched to indication; i.e. head); or iterative reconstruction technique. Coronal and sagittal reformatted images were created and reviewed. COMPARISON: No relevant prior studies available. FINDINGS: Brain: [id number] atrophy. No intracranial hemorrhage. No mass. Few scattered foci of decreased attenuation within periventricular/subcortical white matter. No definite edema. Ventricles: No hydrocephalus. Bones/joints: No acute fracture. Soft tissues: Unremarkable. Vasculature: Mild atherosclerotic disease of intracranial arteries. Sinuses: Scattered minimal to mild mucosal thickening. Mastoid air cells: No mastoid effusion. Orbits: Unremarkable as visualized. Tubes, lines and devices: Endotracheal tube. Orogastric tube. IMPRESSION: 1. Nonspecific white matter changes. Acute infarction may be CT occult within first 24 hours. If a focal deficit persists, consider followup CT or MRI for further evaluation. 2. Incidental/non-acute findings are described above.
--- NOTE | 2016-10-15 01:04 | PCM.RRT ---
OFFICE CLIN ASST Nurses Assessment - Situation OFFICE CLIN ASST Responder Arrival Time: 21:20 New IV Insertion Tolerance: Good - Ventilator Settings Mode: PRVC Ventilator Respiratory Rate Settin Ventilator Tidal Volume Settin PEEP/CPAP (cm H2O): 5 SAO2 %: 100 FIO2 (% Oxygen): 100 I.Reason for OFFICE CLIN ASST - A) Acute Change in Patient: Subjective: CODE BLUE NOTE: Patient was found to be unresponsive and pulseless, therefore, a code blue was called at 9:20pm. ACLS protocol was performed. Chest compressions were initiated. Patient was immediately intubated ( 7.5 british ET tube) and left femoral TLC was inserted for access. Patient received 6 rounds of epinephrine, while chest compressions continued. Pulse was present at 9:40 but then was immediately absent. Patient was defibrillate x3 starting at 9:40pm. After 28 minutes of CPR,and defibrillation patient had a anabaptist of spontaneous circulation. Dopamine drip was started at 9:50 and patient was then transferred to the ICU. - Neurological Status (Select all that apply): absent: Alert, Responsive, Verbal, Follows Commands - Respiratory Oxygen Delivery Method: Room Air, Intubated - Constitutional Appears: In Acute Distress - Respiratory Exam Respiratory Exam: NORMAL BREATHING PATTERN Additional comments: With intubation Breath sounds were present with intubation - Cardiovascular Exam Cardiovascular Exam: absent: REGULAR RHYTHM Additional comments: Pulseless - Neurological Exam Neurological Exam: absent: Alert, Awake, Oriented x3 Plan - Assessment of Findings&Treatment Plan Patient is a 81 year old male who was found to be unresponsive and pulseless at 9:20pm Plan: ACLS protocol Dopamine drip initiated Transferred to the ICU for close monitoring
--- NOTE | 2016-10-15 01:52 | RAD ---
EXAM: XR Chest, 1 View CLINICAL HISTORY: 81 years old, male; Device placement; Ett placement (vent status); Additional info: Intubation TECHNIQUE: Frontal view of the chest. COMPARISON: No relevant prior studies available. FINDINGS: Limitations: Radiographic technique - mild. Lungs: Diffuse interstitial and alveolar opacities, RIGHT greater than LEFT. Pleural space: Cannot exclude small RIGHT pleural effusion. No pneumothorax. Heart: Mild cardiomegaly. Mediastinum: Prominence of central pulmonary vasculature. Bones/joints: No acute fracture. Tubes, lines and devices: Leads overlying chest. External pacemaker. NG tube courses below diaphragm. Endotracheal tube, tip located approximately 14 cm from bouchra. IMPRESSION: 1. Malpositioned NG tube. Recommend repositioning. 2. Findings compatible with asymmetric moderate pulmonary edema and/or pneumonia. 3. Incidental/non-acute findings are described above.
[2016-10-15 02:27] LABS: ABG ALLEN TEST POS; ABG MECHANICAL RATE 20; ARTERIAL BLOOD GAS MODE A/C; ATERIAL BLOOD GAS PEEP 5; DRAW SITE RRADIAL
[2016-10-15 02:39] LABS: BASO # 0.1 K/uL (0.0-0.2); BASO % 0.8 % (0.0-2.0); HEMATOCRIT 33.9 % (35.0-51.0); LYMPH # 0.8 K/uL (1.0-4.3); LYMPH % 6.9 % (20.0-40.0); MEAN CELL VOLUME 86.8 fL (80.0-94.0); MEAN CORPUSCULAR HEMOGLOBIN 27.2 pg (27.0-31.0); MEAN CORPUSCULAR HGB CONC 31.4 g/dL (33.0-37.0); MEAN PLATELET VOLUME 8.3 fL (7.2-11.7); MONO # 0.9 K/uL (0.0-0.8); PLATELET COUNT 266 K/uL (130-400); RED CELL DISTRIBUTION WIDTH 17.1 % (11.5-14.5); WHITE BLOOD COUNT 11.8 K/uL (4.8-10.8)
[2016-10-15 02:42] LABS: CHLORIDE 101 mmol/L (98-107); POTASSIUM 5.2 mmol/L (3.6-5.2); SODIUM 144 mmol/L (132-148)
[2016-10-15 02:44] LABS: AST/SGOT 182 U/L (17-59); BILIRUBIN,TOTAL 0.4 mg/dL (0.2-1.3); CARBON DIOXIDE 25 mmol/L (22-30); GFR AFRICAN-AMERICAN > 60
[2016-10-15 02:45] LABS: ALKALINE PHOSPHATASE 90 U/L (38-126); ALT/SGPT 186 U/L (21-72); BLOOD UREA NITROGEN 30 mg/dL (9-20); CALCIUM 8.8 mg/dl (8.6-10.4); GLUCOSE,RANDOM 296 mg/dL (75-110); TOTAL PROTEIN 6.8 g/dL (6.3-8.3)
[2016-10-15 03:46] LABS: NEUTROPHIL 82 % (50-75); TOTAL CELLS COUNTED 100
[2016-10-15 05:44] LABS: ABG ALLEN TEST POS; ABG MECHANICAL RATE 20; ARTERIAL BLOOD GAS MODE A/C; ARTERIAL BLOOD HGB O2 SAT 95.9 % (95.0-98.0); ATERIAL BLOOD GAS PEEP 5; CARBOXYHEMOGLOBIN 1.3 % (0.5-1.5); DRAW SITE RRADIAL; HHB 1.7 % (0.0-5.0); METHEMOGLOBIN 1.1 % (0.0-3.0)
[2016-10-15] MEDS: DOPamine 400mg/250ml D5W 400 MG/250 ML BAG IV PRN (05:45)
[2016-10-15 06:45] LABS: BASO % 0.3 % (0.0-2.0); EOS % 0.1 % (0.0-4.0); HEMATOCRIT 29.3 % (35.0-51.0); LYMPH # 0.7 K/uL (1.0-4.3); LYMPH % 5.3 % (20.0-40.0); MEAN CELL VOLUME 86.6 fL (80.0-94.0); MEAN CORPUSCULAR HEMOGLOBIN 27.3 pg (27.0-31.0); MEAN CORPUSCULAR HGB CONC 31.5 g/dL (33.0-37.0); MEAN PLATELET VOLUME 8.7 fL (7.2-11.7); MONO # 1.1 K/uL (0.0-0.8); MONO % 7.8 % (0.0-10.0); PLATELET COUNT 215 K/uL (130-400); RED CELL DISTRIBUTION WIDTH 16.8 % (11.5-14.5); WHITE BLOOD COUNT 14.1 K/uL (4.8-10.8)
[2016-10-15] MEDS: Levothyroxine 75 MCG TAB PO SCH (06:54)
[2016-10-15 06:59] LABS: ALKALINE PHOSPHATASE 83 U/L (38-126); ALT/SGPT 152 U/L (21-72); AST/SGOT 138 U/L (17-59); BILIRUBIN,TOTAL 0.3 mg/dL (0.2-1.3); BLOOD UREA NITROGEN 32 mg/dL (9-20); CALCIUM 8.8 mg/dl (8.6-10.4); CARBON DIOXIDE 25 mmol/L (22-30); CHLORIDE 100 mmol/L (98-107); GFR AFRICAN-AMERICAN > 60; GLUCOSE,RANDOM 273 mg/dL (75-110); MAGNESIUM 1.9 mg/dL (1.6-2.3); PHOSPHOROUS 4.6 mg/dL (2.5-4.5); POTASSIUM 4.1 mmol/L (3.6-5.2); SODIUM 139 mmol/L (132-148); TOTAL PROTEIN 6.1 g/dL (6.3-8.3)
[2016-10-15 08:38] LABS: NEUTROPHIL 83 % (50-75); TOTAL CELLS COUNTED 100
[2016-10-15] MEDS: Divalproex 125 mg Sprinkle Capsule PO SCH ×2 (10:38→18:31)
[2016-10-15] MEDS: Sodium Chloride 0.9% 1,000 ML IV SCH ×4 (11:16→19:30)
--- NOTE | 2016-10-15 11:37 | RAD ---
PROCEDURE: CHEST RADIOGRAPH, 1 VIEW HISTORY: ICU Routine/Intubated COMPARISON: Frontal chest radiograph [birth year]1929 17 FINDINGS: LUNGS: Endotracheal tube is been adjusted terminating approximately 5.5 cm above the bouchra. Nasogastric tube is unchanged in position as imaged. Diminishing bilateral pulmonary opacities appreciated with residual right suprahilar infiltrate extending laterally once again as well as right basilar infiltrate. Atelectasis not excluded the right base. Reticular markings appear reduced but remain somewhat due somewhat diffuse nevertheless. Diminishing CHF is felt to be present. No definite left-sided infiltrate. No pneumothorax bilaterally. Minimal right pleural effusion is not excluded. Artifacts obscure lateral left costophrenic sulcus though the medial sulcus is sharp suggesting no effusion on the left. PLEURA: As above. CARDIOVASCULAR: Cardiac silhouette appears stable with slight prominence of the hilar vascular markings. OSSEOUS STRUCTURES: No significant abnormalities. VISUALIZED UPPER ABDOMEN: Normal. OTHER FINDINGS: None. IMPRESSION: 1. Adjusted endotracheal tube as discussed above terminating in the mid to inferior trachea. 2. Diminishing right-sided infiltrate with none appreciated the left. Minimal right pleural effusion not excluded. 3. Likely improving CHF.
[2016-10-15] MEDS: Piperacillin/Tazobact 3.375 GM in Sodium Chloride 100 ML IVPB SCH ×3 (11:42→21:00)
[2016-10-15] MEDS: Midazolam 2 MG/2 ML VIAL IVP PRN (11:51)
--- NOTE | 2016-10-15 15:31 | CP.CCUPN ---
<Aaron Herzog - Last Filed: 10/15/16 15:28> CCU Subjective - Physician Review Subjective (Free Text): Patient seen and examined at bedside. Patient is currently unresponsive, intubated on ventilator. 10/15/16 15:28 CCU Objective - Vital Signs / Intake & Output Vital Signs (Last 4 hours): Vital Signs Temp Pulse Resp BP Pulse Ox 10/15/16 15:00 91.1 F L 77 18 116/53 L 99 10/15/16 14:52 80 21 115/46 L 97 10/15/16 14:50 78 19 98 10/15/16 14:40 79 21 96 10/15/16 14:38 75 20 108/49 L 98 10/15/16 14:30 83 18 97 10/15/16 14:22 75 19 104/50 L 98 10/15/16 14:20 80 20 97 10/15/16 14:10 80 23 97 10/15/16 14:07 76 20 95/71 L 97 10/15/16 14:00 91.3 F L 75 20 95/71 L 97 10/15/16 13:52 87 22 109/63 98 10/15/16 13:50 74 21 97 10/15/16 13:40 76 21 94 L 10/15/16 13:37 76 20 107/81 97 10/15/16 13:30 77 22 97 10/15/16 13:22 74 21 114/64 99 10/15/16 13:20 78 20 98 10/15/16 13:10 79 21 98 10/15/16 13:07 74 19 106/57 L 99 10/15/16 13:06 81 19 99 10/15/16 13:00 90.3 F L 76 21 106/57 L 97 10/15/16 12:52 77 22 118/61 98 10/15/16 12:50 74 19 97 10/15/16 12:40 78 21 98 10/15/16 12:37 75 22 113/64 98 10/15/16 12:30 80 20 97 10/15/16 12:22 82 20 111/58 L 97 10/15/16 12:20 79 21 97 10/15/16 12:10 79 24 98 10/15/16 12:07 79 21 105/64 98 10/15/16 12:00 92.1 F L 77 22 118/61 98 10/15/16 11:52 84 21 118/61 98 10/15/16 11:50 80 25 H 98 10/15/16 11:40 81 24 95 10/15/16 11:37 85 21 109/52 L 96 10/15/16 11:30 89 19 96 Intake and Output (Last 8hrs): Intake & Output 10/15/16 10/15/16 10/15/16 06:59 14:59 22:59 Intake Total 950 579.0 7.2 Output Total 1200 665 40 Balance -250 -86.0 -32.8 Weight 110 lb 117 lb 3.2 oz Intake: IV 165 20 Intake, IV Amount 785 559.0 7.2 Righ Antecubital Y Port 700 500 Right Antecubital 85 59.0 7.2 Output: Urine 1200 665 40 Urine, Voided 1200 665 40 - Physical Exam Neck: Negative for: JVD Respiratory/Chest: Positive for: Clear to Auscultation. Negative for: Wheezes, Rales Cardiovascular: Positive for: Regular Rate and Rhythm. Negative for: Murmurs Abdomen: Positive for: Normal Bowel Sounds Lower Extremity: Negative for: Edema - Medications Active Medications: Active Medications Generic Name Dose Route Start Last Admin Trade Name Freq PRN Reason Stop Dose Admin Acetaminophen 650 mg 09/29/16 19:39 10/13/16 09:44 Tylenol 325mg Tab PO 650 mg Q6 PRN Administration Pain, moderate (4-7) Apixaban 2.5 mg 09/23/16 10:00 10/15/16 10:38 Eliquis PO 2.5 mg BID ARTURO Administration Aspirin 81 mg 09/16/16 10:30 10/15/16 10:37 Aspirin Chewable PO 81 mg DAILY ARTURO Administration Divalproex Sodium 125 mg 09/16/16 10:30 10/15/16 10:38 Depakote Sprinkles PO 125 mg BID ARTURO Administration Levetiracetam 500 mg/ Dextrose 105 mls @ 420 mls/hr 10/14/16 23:45 10/15/16 11:17 IVPB 420 mls/hr Q12H ARTURO Administration Sodium Chloride 1,000 mls @ 100 mls/hr 10/14/16 23:45 10/15/16 13:35 Sodium Chloride 0.9% IV 100 mls/hr .Q10H ARTURO Administration Dopamine HCl/Dextrose 400 mg in 250 mls @ 4.423 mls/hr 10/15/16 05:38 09:18 Dopamine 400mg/250ml D5w IV 4 mcg/kg/min .Q24H PRN 8.845 mls/hr TITRATE PER MD ORDER Titration Protocol 2 MCG/KG/MIN Piperacillin Sod/Tazobactam 100 mls @ 200 mls/hr 10/15/16 10:00 10/15/16 11: 42 Sod 3.375 gm/ Sodium Chloride IVPB 200 mls/hr Q6H ARTURO Administration Vancomycin HCl 750 mg/ Sodium 250 mls @ 166.6 mls/hr 10/15/16 10:00 10/15/16 13:25 Chloride IVPB 166.6 mls/hr Q12H ARTURO Administration Levothyroxine Sodium 37.5 mcg 09/30/16 06:30 10/15/16 06:54 Synthroid PO Not Given DAILY@0630 ARTURO Midazolam HCl 1 mg 10/15/16 08:14 10/15/16 11:51 Versed Inj IVP 1 mg Q1H PRN Administration Seizure activity Pantoprazole Sodium 40 mg 10/15/16 10:00 10/15/16 10:38 Protonix Inj IVP 40 mg DAILY ARTURO Administration Rosuvastatin Calcium 5 mg 09/29/16 22:00 10/15/16 00:00 Crestor PO Not Given HS ARTURO Tamsulosin HCl 0.4 mg 09/16/16 10:30 10/15/16 10:38 Flomax PO 0.4 mg DAILY ARTURO Administration - Patient Studies Lab Studies: Microbiology Studies 10/15/16 11:40 Gram Stain - Final Sputum Lab Studies 10/15/16 10/15/16 10/15/16 Range/Units 11:39 06:34 06:34 WBC 14.1 H (4.8-10.8) K/uL RBC 3.38 L (4.40-5.90) Mil/uL Hgb 9.2 L (12.0-18.0) g/dL Hct 29.3 L (35.0-51.0) % MCV 86.6 (80.0-94.0) fL MCH 27.3 (27.0-31.0) pg MCHC 31.5 L (33.0-37.0) g/dL RDW 16.8 H (11.5-14.5) % Plt Count 215 (130-400) K/uL MPV 8.7 (7.2-11.7) fL Neut % (Auto) 86.5 H (50.0-75.0) % Lymph % (Auto) 5.3 L (20.0-40.0) % [place] % (Auto) 7.8 (0.0-10.0) % Eos % (Auto) 0.1 (0.0-4.0) % Baso % (Auto) 0.3 (0.0-2.0) % Neut # 12.2 H (1.8-7.0) K/uL Lymph # 0.7 L (1.0-4.3) K/uL [place] # 1.1 H (0.0-0.8) K/uL Eos # 0.0 (0.0-0.7) K/uL Baso # 0.0 (0.0-0.2) K/uL Neutrophils % (Manual) 83 H (50-75) % Band Neutrophils % 5 H (0-2) % Lymphocytes % (Manual) 6 L (20-40) % Monocytes % (Manual) 6 (0-10) % Platelet Estimate Normal (NORMAL) Hypochromasia (manual) Slight Poikilocytosis (manual Slight Anisocytosis (manual) Slight Target Cells Slight Ovalocytes Slight Puncture Site pCO2 (35-45) mm/Hg pO2 (80-100) mm/Hg HCO3 (21-28) mmol/L ABG pH (7.35-7.45) ABG Total CO2 (22-28) mmol/L ABG O2 Saturation (95-98) % ABG Base Excess (-2.0-3.0) mmol/L ABG Hemoglobin (11.7-17.4) g/dL ABG Carboxyhemoglobin (0.5-1.5) % POC ABG HHb (Measured) (0.0-5.0) % ABG Methemoglobin (0.0-3.0) % Ravi Test ABG Potassium (3.6-5.2) mmol/L A-a O2 Difference mm/Hg Respiratory Index Hgb O2 Saturation (95.0-98.0) % Sodium 139 (132-148) mmol/l Chloride 100 (98-107) mmol/L Glucose (75-110) mg/dl Lactate (0.7-2.1) mmol/L Vent Mode Mechanical Rate FiO2 % Tidal Volume PEEP Potassium 4.1 (3.6-5.2) mmol/L Carbon Dioxide 25 (22-30) mmol/L Anion Gap 17 (10-20) BUN 32 H (9-20) mg/dL Creatinine 0.7 L (0.8-1.5) MG/DL Est GFR ( Amer) > 60 Est GFR (Non-Af Amer) > 60 POC Glucose (mg/dL) 212 H (65-110) mg/dL Random Glucose 273 H (75-110) mg/dL Lactic Acid (0.7-2.1) mmol/L Calcium 8.8 (8.6-10.4) mg/dl Phosphorus 4.6 H (2.5-4.5) mg/dL Magnesium 1.9 (1.6-2.3) mg/dL Total Bilirubin 0.3 (0.2-1.3) mg/dL AST 138 H D (17-59) U/L ALT 152 H (21-72) U/L Alkaline Phosphatase 83 (38-126) U/L Total Protein 6.1 L (6.3-8.3) g/dL Albumin 3.1 L (3.5-5.0) g/dL Globulin 3.0 (2.2-3.9) gm/dL Albumin/Globulin Ratio 1.0 (1.0-2.1) Arterial Blood Potassium (3.6-5.2) mmol/L 10/15/16 10/15/16 10/15/16 Range/Units 06:11 06:00 05:20 WBC (4.8-10.8) K/uL RBC (4.40-5.90) Mil/uL Hgb (12.0-18.0) g/dL Hct (35.0-51.0) % MCV (80.0-94.0) fL MCH (27.0-31.0) pg MCHC (33.0-37.0) g/dL RDW (11.5-14.5) % Plt Count (130-400) K/uL MPV (7.2-11.7) fL Neut % (Auto) (50.0-75.0) % Lymph % (Auto) (20.0-40.0) % [place] % (Auto) (0.0-10.0) % Eos % (Auto) (0.0-4.0) % Baso % (Auto) (0.0-2.0) % Neut # (1.8-7.0) K/uL Lymph # (1.0-4.3) K/uL [place] # (0.0-0.8) K/uL Eos # (0.0-0.7) K/uL Baso # (0.0-0.2) K/uL Neutrophils % (Manual) (50-75) % Band Neutrophils % (0-2) % Lymphocytes % (Manual) (20-40) % Monocytes % (Manual) (0-10) % Platelet Estimate (NORMAL) Hypochromasia (manual) Poikilocytosis (manual Anisocytosis (manual) Target Cells Ovalocytes Puncture Site Rradial pCO2 45 (35-45) mm/Hg pO2 105 H (80-100) mm/Hg HCO3 26.3 (21-28) mmol/L ABG pH 7.39 (7.35-7.45) ABG Total CO2 28.6 H (22-28) mmol/L ABG O2 Saturation 98.3 H (95-98) % ABG Base Excess 1.8 (-2.0-3.0) mmol/L ABG Hemoglobin 10.7 L (11.7-17.4) g/dL ABG Carboxyhemoglobin 1.3 (0.5-1.5) % POC ABG HHb (Measured) 1.7 (0.0-5.0) % ABG Methemoglobin 1.1 (0.0-3.0) % Ravi Test Pos ABG Potassium (3.6-5.2) mmol/L A-a O2 Difference 124.0 mm/Hg Respiratory Index 1.2 Hgb O2 Saturation 95.9 (95.0-98.0) % Sodium (132-148) mmol/l Chloride (98-107) mmol/L Glucose (75-110) mg/dl Lactate (0.7-2.1) mmol/L Vent Mode A/c Mechanical Rate 20 FiO2 40.0 % Tidal Volume 450 PEEP 5 Potassium (3.6-5.2) mmol/L Carbon Dioxide (22-30) mmol/L Anion Gap (10-20) BUN (9-20) mg/dL Creatinine (0.8-1.5) MG/DL Est GFR ( Amer) Est GFR (Non-Af Amer) POC Glucose (mg/dL) 267 H (65-110) mg/dL Random Glucose (75-110) mg/dL Lactic Acid 3.1 H (0.7-2.1) mmol/L Calcium (8.6-10.4) mg/dl Phosphorus (2.5-4.5) mg/dL Magnesium (1.6-2.3) mg/dL Total Bilirubin (0.2-1.3) mg/dL AST (17-59) U/L ALT (21-72) U/L Alkaline Phosphatase (38-126) U/L Total Protein (6.3-8.3) g/dL Albumin (3.5-5.0) g/dL Globulin (2.2-3.9) gm/dL Albumin/Globulin Ratio (1.0-2.1) Arterial Blood Potassium (3.6-5.2) mmol/L 10/15/16 10/15/16 10/15/16 Range/Units 02:33 02:33 02:33 WBC 11.8 H (4.8-10.8) K/uL RBC 3.90 L (4.40-5.90) Mil/uL Hgb 10.6 L (12.0-18.0) g/dL Hct 33.9 L (35.0-51.0) % MCV 86.8 (80.0-94.0) fL MCH 27.2 (27.0-31.0) pg MCHC 31.4 L (33.0-37.0) g/dL RDW 17.1 H (11.5-14.5) % Plt Count 266 (130-400) K/uL MPV 8.3 (7.2-11.7) fL Neut % (Auto) 84.3 H (50.0-75.0) % Lymph % (Auto) 6.9 L (20.0-40.0) % [place] % (Auto) 8.0 (0.0-10.0) % Eos % (Auto) 0.0 (0.0-4.0) % Baso % (Auto) 0.8 (0.0-2.0) % Neut # 9.9 H (1.8-7.0) K/uL Lymph # 0.8 L (1.0-4.3) K/uL [place] # 0.9 H (0.0-0.8) K/uL Eos # 0.0 (0.0-0.7) K/uL Baso # 0.1 (0.0-0.2) K/uL Neutrophils % (Manual) 82 H (50-75) % Band Neutrophils % 4 H (0-2) % Lymphocytes % (Manual) 7 L (20-40) % Monocytes % (Manual) 7 (0-10) % Platelet Estimate Normal (NORMAL) Hypochromasia (manual) Poikilocytosis (manual Slight Anisocytosis (manual) Slight Target Cells Ovalocytes Puncture Site pCO2 (35-45) mm/Hg pO2 (80-100) mm/Hg HCO3 (21-28) mmol/L ABG pH (7.35-7.45) ABG Total CO2 (22-28) mmol/L ABG O2 Saturation (95-98) % ABG Base Excess (-2.0-3.0) mmol/L ABG Hemoglobin (11.7-17.4) g/dL ABG Carboxyhemoglobin (0.5-1.5) % POC ABG HHb (Measured) (0.0-5.0) % ABG Methemoglobin (0.0-3.0) % Ravi Test ABG Potassium (3.6-5.2) mmol/L A-a O2 Difference mm/Hg Respiratory Index Hgb O2 Saturation (95.0-98.0) % Sodium 144 (132-148) mmol/l Chloride 101 (98-107) mmol/L Glucose (75-110) mg/dl Lactate (0.7-2.1) mmol/L Vent Mode Mechanical Rate FiO2 % Tidal Volume PEEP Potassium 5.2 (3.6-5.2) mmol/L Carbon Dioxide 25 (22-30) mmol/L Anion Gap 23 H (10-20) BUN 30 H (9-20) mg/dL Creatinine 0.7 L (0.8-1.5) MG/DL Est GFR ( Amer) > 60 Est GFR (Non-Af Amer) > 60 POC Glucose (mg/dL) (65-110) mg/dL Random Glucose 296 H (75-110) mg/dL Lactic Acid 3.7 H (0.7-2.1) mmol/L Calcium 8.8 (8.6-10.4) mg/dl Phosphorus (2.5-4.5) mg/dL Magnesium (1.6-2.3) mg/dL Total Bilirubin 0.4 (0.2-1.3) mg/dL AST 182 H D (17-59) U/L ALT 186 H D (21-72) U/L Alkaline Phosphatase 90 (38-126) U/L Total Protein 6.8 (6.3-8.3) g/dL Albumin 3.5 (3.5-5.0) g/dL Globulin 3.4 (2.2-3.9) gm/dL Albumin/Globulin Ratio 1.0 (1.0-2.1) Arterial Blood Potassium (3.6-5.2) mmol/L 10/14/16 10/14/16 10/14/16 Range/Units 21:24 16:46 02:15 WBC (4.8-10.8) K/uL RBC (4.40-5.90) Mil/uL Hgb (12.0-18.0) g/dL Hct (35.0-51.0) % MCV (80.0-94.0) fL MCH (27.0-31.0) pg MCHC (33.0-37.0) g/dL RDW (11.5-14.5) % Plt Count (130-400) K/uL MPV (7.2-11.7) fL Neut % (Auto) (50.0-75.0) % Lymph % (Auto) (20.0-40.0) % [place] % (Auto) (0.0-10.0) % Eos % (Auto) (0.0-4.0) % Baso % (Auto) (0.0-2.0) % Neut # (1.8-7.0) K/uL Lymph # (1.0-4.3) K/uL [place] # (0.0-0.8) K/uL Eos # (0.0-0.7) K/uL Baso # (0.0-0.2) K/uL Neutrophils % (Manual) (50-75) % Band Neutrophils % (0-2) % Lymphocytes % (Manual) (20-40) % Monocytes % (Manual) (0-10) % Platelet Estimate (NORMAL) Hypochromasia (manual) Poikilocytosis (manual Anisocytosis (manual) Target Cells Ovalocytes Puncture Site Rradial pCO2 56 H (35-45) mm/Hg pO2 435 H (80-100) mm/Hg HCO3 24.5 (21-28) mmol/L ABG pH 7.29 L (7.35-7.45) ABG Total CO2 28.6 H (22-28) mmol/L ABG O2 Saturation 99.7 H (95-98) % ABG Base Excess -0.7 (-2.0-3.0) mmol/L ABG Hemoglobin (11.7-17.4) g/dL ABG Carboxyhemoglobin (0.5-1.5) % POC ABG HHb (Measured) (0.0-5.0) % ABG Methemoglobin (0.0-3.0) % Ravi Test Pos ABG Potassium 4.6 (3.6-5.2) mmol/L A-a O2 Difference 208.0 mm/Hg Respiratory Index 0.5 Hgb O2 Saturation (95.0-98.0) % Sodium 141.0 (132-148) mmol/l Chloride 108.0 H (98-107) mmol/L Glucose 339 H (75-110) mg/dl Lactate 4.0 H* (0.7-2.1) mmol/L Vent Mode A/c Mechanical Rate 20 FiO2 100.0 % Tidal Volume 450 PEEP 5 Potassium (3.6-5.2) mmol/L Carbon Dioxide (22-30) mmol/L Anion Gap (10-20) BUN (9-20) mg/dL Creatinine (0.8-1.5) MG/DL Est GFR ( Amer) Est GFR (Non-Af Amer) POC Glucose (mg/dL) 194 H 178 H (65-110) mg/dL Random Glucose (75-110) mg/dL Lactic Acid (0.7-2.1) mmol/L Calcium (8.6-10.4) mg/dl Phosphorus (2.5-4.5) mg/dL Magnesium (1.6-2.3) mg/dL Total Bilirubin (0.2-1.3) mg/dL AST (17-59) U/L ALT (21-72) U/L Alkaline Phosphatase (38-126) U/L Total Protein (6.3-8.3) g/dL Albumin (3.5-5.0) g/dL Globulin (2.2-3.9) gm/dL Albumin/Globulin Ratio (1.0-2.1) Arterial Blood Potassium 4.6 (3.6-5.2) mmol/L Laboratory Results - last 24 hr 10/14/16 10/14/16 10/14/16 02:15 16:46 21:24 WBC RBC Hgb Hct MCV MCH MCHC RDW Plt Count MPV Neut % (Auto) Lymph % (Auto) [place] % (Auto) Eos % (Auto) Baso % (Auto) Neut # Lymph # [place] # Eos # Baso # Neutrophils % (Manual) Band Neutrophils % Lymphocytes % (Manual) Monocytes % (Manual) Platelet Estimate Hypochromasia (manual) Poikilocytosis (manual Anisocytosis (manual) Target Cells Ovalocytes Puncture Site Rradial pCO2 56 H pO2 435 H HCO3 24.5 ABG pH 7.29 L ABG Total CO2 28.6 H ABG O2 Saturation 99.7 H ABG Base Excess -0.7 ABG Hemoglobin ABG Carboxyhemoglobin POC ABG HHb (Measured) ABG Methemoglobin Ravi Test Pos ABG Potassium 4.6 A-a O2 Difference 208.0 Respiratory Index 0.5 Hgb O2 Saturation Sodium 141.0 Chloride 108.0 H Glucose 339 H Lactate 4.0 H* Vent Mode A/c Mechanical Rate 20 FiO2 100.0 Tidal Volume 450 PEEP 5 Potassium Carbon Dioxide Anion Gap BUN Creatinine Est GFR ( Amer) Est GFR (Non-Af Amer) POC Glucose (mg/dL) 178 H 194 H Random Glucose Lactic Acid Calcium Phosphorus Magnesium Total Bilirubin AST ALT Alkaline Phosphatase Total Protein Albumin Globulin Albumin/Globulin Ratio Arterial Blood Potassium 4.6 10/15/16 10/15/16 10/15/16 02:33 02:33 02:33 WBC 11.8 H RBC 3.90 L Hgb 10.6 L Hct 33.9 L MCV 86.8 MCH 27.2 MCHC 31.4 L RDW 17.1 H Plt Count 266 MPV 8.3 Neut % (Auto) 84.3 H Lymph % (Auto) 6.9 L [place] % (Auto) 8.0 Eos % (Auto) 0.0 Baso % (Auto) 0.8 Neut # 9.9 H Lymph # 0.8 L [place] # 0.9 H Eos # 0.0 Baso # 0.1 Neutrophils % (Manual) 82 H Band Neutrophils % 4 H Lymphocytes % (Manual) 7 L Monocytes % (Manual) 7 Platelet Estimate Normal Hypochromasia (manual) Poikilocytosis (manual Slight Anisocytosis (manual) Slight Target Cells Ovalocytes Puncture Site pCO2 pO2 HCO3 ABG pH ABG Total CO2 ABG O2 Saturation ABG Base Excess ABG Hemoglobin ABG Carboxyhemoglobin POC ABG HHb (Measured) ABG Methemoglobin Ravi Test ABG Potassium A-a O2 Difference Respiratory Index Hgb O2 Saturation Sodium 144 Chloride 101 Glucose Lactate Vent Mode Mechanical Rate FiO2 Tidal Volume PEEP Potassium 5.2 Carbon Dioxide 25 Anion Gap 23 H BUN 30 H Creatinine 0.7 L Est GFR ( Amer) > 60 Est GFR (Non-Af Amer) > 60 POC Glucose (mg/dL) Random Glucose 296 H Lactic Acid 3.7 H Calcium 8.8 Phosphorus Magnesium Total Bilirubin 0.4 AST 182 H D ALT 186 H D Alkaline Phosphatase 90 Total Protein 6.8 Albumin 3.5 Globulin 3.4 Albumin/Globulin Ratio 1.0 Arterial Blood Potassium 10/15/16 10/15/16 10/15/16 05:20 06:00 06:11 WBC RBC Hgb Hct MCV MCH MCHC RDW Plt Count MPV Neut % (Auto) Lymph % (Auto) [place] % (Auto) Eos % (Auto) Baso % (Auto) Neut # Lymph # [place] # Eos # Baso # Neutrophils % (Manual) Band Neutrophils % Lymphocytes % (Manual) Monocytes % (Manual) Platelet Estimate Hypochromasia (manual) Poikilocytosis (manual Anisocytosis (manual) Target Cells Ovalocytes Puncture Site Rradial pCO2 45 pO2 105 H HCO3 26.3 ABG pH 7.39 ABG Total CO2 28.6 H ABG O2 Saturation 98.3 H ABG Base Excess 1.8 ABG Hemoglobin 10.7 L ABG Carboxyhemoglobin 1.3 POC ABG HHb (Measured) 1.7 ABG Methemoglobin 1.1 Ravi Test Pos ABG Potassium A-a O2 Difference 124.0 Respiratory Index 1.2 Hgb O2 Saturation 95.9 Sodium Chloride Glucose Lactate Vent Mode A/c Mechanical Rate 20 FiO2 40.0 Tidal Volume 450 PEEP 5 Potassium Carbon Dioxide Anion Gap BUN Creatinine Est GFR ( Amer) Est GFR (Non-Af Amer) POC Glucose (mg/dL) 267 H Random Glucose Lactic Acid 3.1 H Calcium Phosphorus Magnesium Total Bilirubin AST ALT Alkaline Phosphatase Total Protein Albumin Globulin Albumin/Globulin Ratio Arterial Blood Potassium 10/15/16 10/15/16 10/15/16 06:34 06:34 11:39 WBC 14.1 H RBC 3.38 L Hgb 9.2 L Hct 29.3 L MCV 86.6 MCH 27.3 MCHC 31.5 L RDW 16.8 H Plt Count 215 MPV 8.7 Neut % (Auto) 86.5 H Lymph % (Auto) 5.3 L [place] % (Auto) 7.8 Eos % (Auto) 0.1 Baso % (Auto) 0.3 Neut # 12.2 H Lymph # 0.7 L [place] # 1.1 H Eos # 0.0 Baso # 0.0 Neutrophils % (Manual) 83 H Band Neutrophils % 5 H Lymphocytes % (Manual) 6 L Monocytes % (Manual) 6 Platelet Estimate Normal Hypochromasia (manual) Slight Poikilocytosis (manual Slight Anisocytosis (manual) Slight Target Cells Slight Ovalocytes Slight Puncture Site pCO2 pO2 HCO3 ABG pH ABG Total CO2 ABG O2 Saturation ABG Base Excess ABG Hemoglobin ABG Carboxyhemoglobin POC ABG HHb (Measured) ABG Methemoglobin Ravi Test ABG Potassium A-a O2 Difference Respiratory Index Hgb O2 Saturation Sodium 139 Chloride 100 Glucose Lactate Vent Mode Mechanical Rate FiO2 Tidal Volume PEEP Potassium 4.1 Carbon Dioxide 25 Anion Gap 17 BUN 32 H Creatinine 0.7 L Est GFR ( Amer) > 60 Est GFR (Non-Af Amer) > 60 POC Glucose (mg/dL) 212 H Random Glucose 273 H Lactic Acid Calcium 8.8 Phosphorus 4.6 H Magnesium 1.9 Total Bilirubin 0.3 AST 138 H D ALT 152 H Alkaline Phosphatase 83 Total Protein 6.1 L Albumin 3.1 L Globulin 3.0 Albumin/Globulin Ratio 1.0 Arterial Blood Potassium Fingerstick Blood Sugar Results: 212 Review of Systems - Review of Systems Systems not reviewed;Unavailable: Intubated Critical Care Progress Note - Vent Settings TIDAL VOLUME:: 450 RESP RATE:: 20 FIO2:: 100 PEEP:: 5 - Nutrition Nutrition: Nutrition Category Date Time Status Heart Healthy Diet [DIET] Diets 08/31/16 Dinner Active Assessment/Plan - Assessment and Plan (Free Text) Assessment: Patient admitted since 07/15/16. Patient was found to be unresponsive and pulseless, a code blue was called evening of 10/14/16. ACLS protocol was performed and patient was intubated. After 28 minutes of CPR and defibrillation , patient had a roman catholic of spontaneous circulation. Patient was then transferred to the ICU. 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 dense pleural based consolidation right lower lobe. subpleural emphysema. mild centrilobular pulmonary emphysema. left upper lobe nodules. 7mm and 9mm. recommend f/u noncontrast chest CT in 3 months. Multiple left upper lobe nodular calcifications, likely granulomatous. probable small airways disease posterior right upper lobe. findings are nonspecific and may reflect infection or inflammatory disease. - Pulmonary consulted, Dr Villegas CV: cardiac arrest of unclear source - code freeze for 24 hours - aspirin 81mg po daily - dopamine drip - rosuvastatin 5mg po hs - EKG with LBBB as prior EKGs have also shown - ECHO - left ventricular is normal size. there is mild to moderate concentric left ventricular hypertrophy. the systolic function is midly to moderately impaired. septal hypokinesis. mild to moderate aortic regurgitation. mild pulmonary hypertension. (please see full report) Endocrine: Hx of hypothyroidism - levothyroxine 37.5 mcg po daily GI: - pantoprazole 40mg iv daily Heme: anemia Renal: Hx of BPH - tamsulosin 0.4mg po daily MSK: L2 compression fracture - CT confirms acute appearing L2 compression fracture, no retropulsion seen per report. Ill defined soft tissue density seen, ? edema. Would recommend attempt MRI (unsure if patient will tolerate and cooperate) for further visualization - Neurosurgery consulted, Dr Rose -> no neurosurgical intervention at this time ID: leukocytosis - Chest CT: Multiple left upper lobe nodular calcifications, likely granulomatous. probable small airways disease posterior right upper lobe. findings are nonspecific and may reflect infection or inflammatory disease. - zosyn 3.375g iv q8 - vancomycin 750mg iv q12 - F/U blood cx, urine cx, sputum cx, MRSA screen Prophylaxis: - GI: protonix 40mg po daily - DVT: apixaban 2.5mg po bid <Carlitos Ramirez P - Last Filed: 10/15/16 21:04> CCU Objective - Vital Signs / Intake & Output Vital Signs (Last 4 hours): Vital Signs Temp Pulse Resp BP Pulse Ox 10/15/16 19:03 74 18 96/50 L 96 10/15/16 19:00 67 20 96 10/15/16 18:58 92.8 F L 71 19 94/43 L 10/15/16 18:50 68 19 95 10/15/16 18:48 67 20 94/43 L 95 10/15/16 18:40 73 21 94 L 10/15/16 18:32 72 19 90/47 L 94 L 10/15/16 18:30 75 19 92 L 10/15/16 18:20 69 21 93 L 10/15/16 18:18 70 17 94/44 L 93 L 10/15/16 18:10 81 21 95 10/15/16 18:03 69 20 98/44 L 95 10/15/16 18:00 92.1 F L 70 20 94/44 L 94 L 10/15/16 17:50 75 18 94 L 10/15/16 17:47 78 17 110/65 93 L 10/15/16 17:40 78 19 94 L 10/15/16 17:32 106 H 22 101/62 10/15/16 17:30 90 18 91 L 10/15/16 17:20 90 22 10/15/16 17:19 92 H 15 110/64 08/31/17 17:10 78 20 97 10/15/16 17:08 88 21 10/15/16 17:00 92.0 F L 93 H 20 110/64 Intake and Output (Last 8hrs): Intake & Output 10/15/16 10/15/16 10/15/16 06:59 14:59 22:59 Intake Total 950 579.0 368.8 Output Total 1200 665 225 Balance -250 -86.0 143.8 Weight 110 lb 117 lb 3.2 oz Intake: IV 165 20 30 Intake, IV Amount 785 559.0 338.8 Left Forearm 10 Righ Antecubital Y Port 700 500 300 Right Antecubital 85 59.0 28.8 Output: Urine 1200 665 225 Urine, Voided 1200 665 225 - Medications Active Medications: Active Medications Generic Name Dose Route Start Last Admin Trade Name Freq PRN Reason Stop Dose Admin Acetaminophen 650 mg 09/29/16 19:39 10/13/16 09:44 Tylenol 325mg Tab PO 650 mg Q6 PRN Administration Pain, moderate (4-7) Apixaban 2.5 mg 09/23/16 10:00 10/15/16 17:37 Eliquis PO Not Given BID ARTURO Aspirin 81 mg 09/16/16 10:30 10/15/16 10:37 Aspirin Chewable PO 81 mg DAILY ARTURO Administration Divalproex Sodium 125 mg 09/16/16 10:30 10/15/16 18:31 Depakote Sprinkles PO 125 mg BID ARTURO Administration Levetiracetam 500 mg/ Dextrose 105 mls @ 420 mls/hr 10/14/16 23:45 10/15/16 11:17 IVPB 420 mls/hr Q12H ARTURO Administration Sodium Chloride 1,000 mls @ 100 mls/hr 10/14/16 23:45 10/15/16 13:35 Sodium Chloride 0.9% IV 100 mls/hr .Q10H ARTURO Administration Dopamine HCl/Dextrose 400 mg in 250 mls @ 4.423 mls/hr 10/15/16 05:38 15:29 Dopamine 400mg/250ml D5w IV 3 mcg/kg/min .Q24H PRN 6.634 mls/hr TITRATE PER MD ORDER Titration Protocol 2 MCG/KG/MIN Piperacillin Sod/Tazobactam 100 mls @ 200 mls/hr 10/15/16 10:00 10/15/16 15: 35 Sod 3.375 gm/ Sodium Chloride IVPB 200 mls/hr Q6H [facility]URO Administration Vancomycin HCl 750 mg/ Sodium 250 mls @ 166.6 mls/hr 10/15/16 10:00 10/15/16 13:25 Chloride IVPB 166.6 mls/hr Q12H [facility]O Administration Midazolam HCl 100 mg/ Dextrose 100 mls @ 10 mls/hr 10/15/16 17:30 10/15/16 18 :00 IV 10 mg/hr .Q10H ARTURO 10 mls/hr Protocol Administration 10 MG/HR Levothyroxine Sodium 37.5 mcg 09/30/16 06:30 10/15/16 06:54 Synthroid PO Not Given DAILY@0630 [facility] Midazolam HCl 1 mg 10/15/16 08:14 10/15/16 11:51 Versed Inj IVP 1 mg Q1H PRN Administration Seizure activity Pantoprazole Sodium 40 mg 10/15/16 10:00 10/15/16 10:38 Protonix Inj IVP 40 mg DAILY [facility] Administration Rosuvastatin Calcium 5 mg 09/29/16 22:00 10/15/16 00:00 Crestor PO Not Given HS [facility] Tamsulosin HCl 0.4 mg 09/16/16 10:30 10/15/16 10:38 Flomax PO 0.4 mg DAILY [facility]O Administration - Patient Studies Lab Studies: Microbiology Studies 10/15/16 11:40 Gram Stain - Final Sputum Lab Studies 10/15/16 10/15/16 10/15/16 Range/Units 17:27 11:39 06:34 WBC (4.8-10.8) K/uL RBC (4.40-5.90) Mil/uL Hgb (12.0-18.0) g/dL Hct (35.0-51.0) % MCV (80.0-94.0) fL MCH (27.0-31.0) pg MCHC (33.0-37.0) g/dL RDW (11.5-14.5) % Plt Count (130-400) K/uL MPV (7.2-11.7) fL Neut % (Auto) (50.0-75.0) % Lymph % (Auto) (20.0-40.0) % [place] % (Auto) (0.0-10.0) % Eos % (Auto) (0.0-4.0) % Baso % (Auto) (0.0-2.0) % Neut # (1.8-7.0) K/uL Lymph # (1.0-4.3) K/uL [place] # (0.0-0.8) K/uL Eos # (0.0-0.7) K/uL Baso # (0.0-0.2) K/uL Neutrophils % (Manual) (50-75) % Band Neutrophils % (0-2) % Lymphocytes % (Manual) (20-40) % Monocytes % (Manual) (0-10) % Platelet Estimate (NORMAL) Hypochromasia (manual) Poikilocytosis (manual Anisocytosis (manual) Target Cells Ovalocytes Puncture Site pCO2 (35-45) mm/Hg pO2 (80-100) mm/Hg HCO3 (21-28) mmol/L ABG pH (7.35-7.45) ABG Total CO2 (22-28) mmol/L ABG O2 Saturation (95-98) % ABG Base Excess (-2.0-3.0) mmol/L ABG Hemoglobin (11.7-17.4) g/dL ABG Carboxyhemoglobin (0.5-1.5) % POC ABG HHb (Measured) (0.0-5.0) % ABG Methemoglobin (0.0-3.0) % Ravi Test ABG Potassium (3.6-5.2) mmol/L A-a O2 Difference mm/Hg Respiratory Index Hgb O2 Saturation (95.0-98.0) % Sodium 139 (132-148) mmol/l Chloride 100 (98-107) mmol/L Glucose (75-110) mg/dl Lactate (0.7-2.1) mmol/L Vent Mode Mechanical Rate FiO2 % Tidal Volume PEEP Potassium 4.1 (3.6-5.2) mmol/L Carbon Dioxide 25 (22-30) mmol/L Anion Gap 17 (10-20) BUN 32 H (9-20) mg/dL Creatinine 0.7 L (0.8-1.5) MG/DL Est GFR ( Amer) > 60 Est GFR (Non-Af Amer) > 60 POC Glucose (mg/dL) 105 212 H (65-110) mg/dL Random Glucose 273 H (75-110) mg/dL Lactic Acid (0.7-2.1) mmol/L Calcium 8.8 (8.6-10.4) mg/dl Phosphorus 4.6 H (2.5-4.5) mg/dL Magnesium 1.9 (1.6-2.3) mg/dL Total Bilirubin 0.3 (0.2-1.3) mg/dL AST 138 H D (17-59) U/L ALT 152 H (21-72) U/L Alkaline Phosphatase 83 (38-126) U/L Total Protein 6.1 L (6.3-8.3) g/dL Albumin 3.1 L (3.5-5.0) g/dL Globulin 3.0 (2.2-3.9) gm/dL Albumin/Globulin Ratio 1.0 (1.0-2.1) Arterial Blood Potassium (3.6-5.2) mmol/L 10/15/16 10/15/16 10/15/16 Range/Units 06:34 06:11 06:00 WBC 14.1 H (4.8-10.8) K/uL RBC 3.38 L (4.40-5.90) Mil/uL Hgb 9.2 L (12.0-18.0) g/dL Hct 29.3 L (35.0-51.0) % MCV 86.6 (80.0-94.0) fL MCH 27.3 (27.0-31.0) pg MCHC 31.5 L (33.0-37.0) g/dL RDW 16.8 H (11.5-14.5) % Plt Count 215 (130-400) K/uL MPV 8.7 (7.2-11.7) fL Neut % (Auto) 86.5 H (50.0-75.0) % Lymph % (Auto) 5.3 L (20.0-40.0) % [place] % (Auto) 7.8 (0.0-10.0) % Eos % (Auto) 0.1 (0.0-4.0) % Baso % (Auto) 0.3 (0.0-2.0) % Neut # 12.2 H (1.8-7.0) K/uL Lymph # 0.7 L (1.0-4.3) K/uL [place] # 1.1 H (0.0-0.8) K/uL Eos # 0.0 (0.0-0.7) K/uL Baso # 0.0 (0.0-0.2) K/uL Neutrophils % (Manual) 83 H (50-75) % Band Neutrophils % 5 H (0-2) % Lymphocytes % (Manual) 6 L (20-40) % Monocytes % (Manual) 6 (0-10) % Platelet Estimate Normal (NORMAL) Hypochromasia (manual) Slight Poikilocytosis (manual Slight Anisocytosis (manual) Slight Target Cells Slight Ovalocytes Slight Puncture Site pCO2 (35-45) mm/Hg pO2 (80-100) mm/Hg HCO3 (21-28) mmol/L ABG pH (7.35-7.45) ABG Total CO2 (22-28) mmol/L ABG O2 Saturation (95-98) % ABG Base Excess (-2.0-3.0) mmol/L ABG Hemoglobin (11.7-17.4) g/dL ABG Carboxyhemoglobin (0.5-1.5) % POC ABG HHb (Measured) (0.0-5.0) % ABG Methemoglobin (0.0-3.0) % Ravi Test ABG Potassium (3.6-5.2) mmol/L A-a O2 Difference mm/Hg Respiratory Index Hgb O2 Saturation (95.0-98.0) % Sodium (132-148) mmol/l Chloride (98-107) mmol/L Glucose (75-110) mg/dl Lactate (0.7-2.1) mmol/L Vent Mode Mechanical Rate FiO2 % Tidal Volume PEEP Potassium (3.6-5.2) mmol/L Carbon Dioxide (22-30) mmol/L Anion Gap (10-20) BUN (9-20) mg/dL Creatinine (0.8-1.5) MG/DL Est GFR ( Amer) Est GFR (Non-Af Amer) POC Glucose (mg/dL) 267 H (65-110) mg/dL Random Glucose (75-110) mg/dL Lactic Acid 3.1 H (0.7-2.1) mmol/L Calcium (8.6-10.4) mg/dl Phosphorus (2.5-4.5) mg/dL Magnesium (1.6-2.3) mg/dL Total Bilirubin (0.2-1.3) mg/dL AST (17-59) U/L ALT (21-72) U/L Alkaline Phosphatase (38-126) U/L Total Protein (6.3-8.3) g/dL Albumin (3.5-5.0) g/dL Globulin (2.2-3.9) gm/dL Albumin/Globulin Ratio (1.0-2.1) Arterial Blood Potassium (3.6-5.2) mmol/L 10/15/16 10/15/16 10/15/16 Range/Units 05:20 02:33 02:33 WBC (4.8-10.8) K/uL RBC (4.40-5.90) Mil/uL Hgb (12.0-18.0) g/dL Hct (35.0-51.0) % MCV (80.0-94.0) fL MCH (27.0-31.0) pg MCHC (33.0-37.0) g/dL RDW (11.5-14.5) % Plt Count (130-400) K/uL MPV (7.2-11.7) fL Neut % (Auto) (50.0-75.0) % Lymph % (Auto) (20.0-40.0) % [place] % (Auto) (0.0-10.0) % Eos % (Auto) (0.0-4.0) % Baso % (Auto) (0.0-2.0) % Neut # (1.8-7.0) K/uL Lymph # (1.0-4.3) K/uL [place] # (0.0-0.8) K/uL Eos # (0.0-0.7) K/uL Baso # (0.0-0.2) K/uL Neutrophils % (Manual) (50-75) % Band Neutrophils % (0-2) % Lymphocytes % (Manual) (20-40) % Monocytes % (Manual) (0-10) % Platelet Estimate (NORMAL) Hypochromasia (manual) Poikilocytosis (manual Anisocytosis (manual) Target Cells Ovalocytes Puncture Site Rradial pCO2 45 (35-45) mm/Hg pO2 105 H (80-100) mm/Hg HCO3 26.3 (21-28) mmol/L ABG pH 7.39 (7.35-7.45) ABG Total CO2 28.6 H (22-28) mmol/L ABG O2 Saturation 98.3 H (95-98) % ABG Base Excess 1.8 (-2.0-3.0) mmol/L ABG Hemoglobin 10.7 L (11.7-17.4) g/dL ABG Carboxyhemoglobin 1.3 (0.5-1.5) % POC ABG HHb (Measured) 1.7 (0.0-5.0) % ABG Methemoglobin 1.1 (0.0-3.0) % Ravi Test Pos ABG Potassium (3.6-5.2) mmol/L A-a O2 Difference 124.0 mm/Hg Respiratory Index 1.2 Hgb O2 Saturation 95.9 (95.0-98.0) % Sodium 144 (132-148) mmol/l Chloride 101 (98-107) mmol/L Glucose (75-110) mg/dl Lactate (0.7-2.1) mmol/L Vent Mode A/c Mechanical Rate 20 FiO2 40.0 % Tidal Volume 450 PEEP 5 Potassium 5.2 (3.6-5.2) mmol/L Carbon Dioxide 25 (22-30) mmol/L Anion Gap 23 H (10-20) BUN 30 H (9-20) mg/dL Creatinine 0.7 L (0.8-1.5) MG/DL Est GFR ( Amer) > 60 Est GFR (Non-Af Amer) > 60 POC Glucose (mg/dL) (65-110) mg/dL Random Glucose 296 H (75-110) mg/dL Lactic Acid 3.7 H (0.7-2.1) mmol/L Calcium 8.8 (8.6-10.4) mg/dl Phosphorus (2.5-4.5) mg/dL Magnesium (1.6-2.3) mg/dL Total Bilirubin 0.4 (0.2-1.3) mg/dL AST 182 H D (17-59) U/L ALT 186 H D (21-72) U/L Alkaline Phosphatase 90 (38-126) U/L Total Protein 6.8 (6.3-8.3) g/dL Albumin 3.5 (3.5-5.0) g/dL Globulin 3.4 (2.2-3.9) gm/dL Albumin/Globulin Ratio 1.0 (1.0-2.1) Arterial Blood Potassium (3.6-5.2) mmol/L 10/15/16 10/14/16 10/14/16 Range/Units 02:33 21:24 02:15 WBC 11.8 H (4.8-10.8) K/uL RBC 3.90 L (4.40-5.90) Mil/uL Hgb 10.6 L (12.0-18.0) g/dL Hct 33.9 L (35.0-51.0) % MCV 86.8 (80.0-94.0) fL MCH 27.2 (27.0-31.0) pg MCHC 31.4 L (33.0-37.0) g/dL RDW 17.1 H (11.5-14.5) % Plt Count 266 (130-400) K/uL MPV 8.3 (7.2-11.7) fL Neut % (Auto) 84.3 H (50.0-75.0) % Lymph % (Auto) 6.9 L (20.0-40.0) % [place] % (Auto) 8.0 (0.0-10.0) % Eos % (Auto) 0.0 (0.0-4.0) % Baso % (Auto) 0.8 (0.0-2.0) % Neut # 9.9 H (1.8-7.0) K/uL Lymph # 0.8 L (1.0-4.3) K/uL [place] # 0.9 H (0.0-0.8) K/uL Eos # 0.0 (0.0-0.7) K/uL Baso # 0.1 (0.0-0.2) K/uL Neutrophils % (Manual) 82 H (50-75) % Band Neutrophils % 4 H (0-2) % Lymphocytes % (Manual) 7 L (20-40) % Monocytes % (Manual) 7 (0-10) % Platelet Estimate Normal (NORMAL) Hypochromasia (manual) Poikilocytosis (manual Slight Anisocytosis (manual) Slight Target Cells Ovalocytes Puncture Site Rradial pCO2 56 H (35-45) mm/Hg pO2 435 H (80-100) mm/Hg HCO3 24.5 (21-28) mmol/L ABG pH 7.29 L (7.35-7.45) ABG Total CO2 28.6 H (22-28) mmol/L ABG O2 Saturation 99.7 H (95-98) % ABG Base Excess -0.7 (-2.0-3.0) mmol/L ABG Hemoglobin (11.7-17.4) g/dL ABG Carboxyhemoglobin (0.5-1.5) % POC ABG HHb (Measured) (0.0-5.0) % ABG Methemoglobin (0.0-3.0) % Ravi Test Pos ABG Potassium 4.6 (3.6-5.2) mmol/L A-a O2 Difference 208.0 mm/Hg Respiratory Index 0.5 Hgb O2 Saturation (95.0-98.0) % Sodium 141.0 (132-148) mmol/l Chloride 108.0 H (98-107) mmol/L Glucose 339 H (75-110) mg/dl Lactate 4.0 H* (0.7-2.1) mmol/L Vent Mode A/c Mechanical Rate 20 FiO2 100.0 % Tidal Volume 450 PEEP 5 Potassium (3.6-5.2) mmol/L Carbon Dioxide (22-30) mmol/L Anion Gap (10-20) BUN (9-20) mg/dL Creatinine (0.8-1.5) MG/DL Est GFR ( Amer) Est GFR (Non-Af Amer) POC Glucose (mg/dL) 194 H (65-110) mg/dL Random Glucose (75-110) mg/dL Lactic Acid (0.7-2.1) mmol/L Calcium (8.6-10.4) mg/dl Phosphorus (2.5-4.5) mg/dL Magnesium (1.6-2.3) mg/dL Total Bilirubin (0.2-1.3) mg/dL AST (17-59) U/L ALT (21-72) U/L Alkaline Phosphatase (38-126) U/L Total Protein (6.3-8.3) g/dL Albumin (3.5-5.0) g/dL Globulin (2.2-3.9) gm/dL Albumin/Globulin Ratio (1.0-2.1) Arterial Blood Potassium 4.6 (3.6-5.2) mmol/L Laboratory Results - last 24 hr 10/14/16 10/14/16 10/15/16 02:15 21:24 02:33 WBC 11.8 H RBC 3.90 L Hgb 10.6 L Hct 33.9 L MCV 86.8 MCH 27.2 MCHC 31.4 L RDW 17.1 H Plt Count 266 MPV 8.3 Neut % (Auto) 84.3 H Lymph % (Auto) 6.9 L [place] % (Auto) 8.0 Eos % (Auto) 0.0 Baso % (Auto) 0.8 Neut # 9.9 H Lymph # 0.8 L [place] # 0.9 H Eos # 0.0 Baso # 0.1 Neutrophils % (Manual) 82 H Band Neutrophils % 4 H Lymphocytes % (Manual) 7 L Monocytes % (Manual) 7 Platelet Estimate Normal Hypochromasia (manual) Poikilocytosis (manual Slight Anisocytosis (manual) Slight Target Cells Ovalocytes Puncture Site Rradial pCO2 56 H pO2 435 H HCO3 24.5 ABG pH 7.29 L ABG Total CO2 28.6 H ABG O2 Saturation 99.7 H ABG Base Excess -0.7 ABG Hemoglobin ABG Carboxyhemoglobin POC ABG HHb (Measured) ABG Methemoglobin Ravi Test Pos ABG Potassium 4.6 A-a O2 Difference 208.0 Respiratory Index 0.5 Hgb O2 Saturation Sodium 141.0 Chloride 108.0 H Glucose 339 H Lactate 4.0 H* Vent Mode A/c Mechanical Rate 20 FiO2 100.0 Tidal Volume 450 PEEP 5 Potassium Carbon Dioxide Anion Gap BUN Creatinine Est GFR ( Amer) Est GFR (Non-Af Amer) POC Glucose (mg/dL) 194 H Random Glucose Lactic Acid Calcium Phosphorus Magnesium Total Bilirubin AST ALT Alkaline Phosphatase Total Protein Albumin Globulin Albumin/Globulin Ratio Arterial Blood Potassium 4.6 10/15/16 10/15/16 10/15/16 02:33 02:33 05:20 WBC RBC Hgb Hct MCV MCH MCHC RDW Plt Count MPV Neut % (Auto) Lymph % (Auto) [place] % (Auto) Eos % (Auto) Baso % (Auto) Neut # Lymph # [place] # Eos # Baso # Neutrophils % (Manual) Band Neutrophils % Lymphocytes % (Manual) Monocytes % (Manual) Platelet Estimate Hypochromasia (manual) Poikilocytosis (manual Anisocytosis (manual) Target Cells Ovalocytes Puncture Site Rradial pCO2 45 pO2 105 H HCO3 26.3 ABG pH 7.39 ABG Total CO2 28.6 H ABG O2 Saturation 98.3 H ABG Base Excess 1.8 ABG Hemoglobin 10.7 L ABG Carboxyhemoglobin 1.3 POC ABG HHb (Measured) 1.7 ABG Methemoglobin 1.1 Ravi Test Pos ABG Potassium A-a O2 Difference 124.0 Respiratory Index 1.2 Hgb O2 Saturation 95.9 Sodium 144 Chloride 101 Glucose Lactate Vent Mode A/c Mechanical Rate 20 FiO2 40.0 Tidal Volume 450 PEEP 5 Potassium 5.2 Carbon Dioxide 25 Anion Gap 23 H BUN 30 H Creatinine 0.7 L Est GFR ( Amer) > 60 Est GFR (Non-Af Amer) > 60 POC Glucose (mg/dL) Random Glucose 296 H Lactic Acid 3.7 H Calcium 8.8 Phosphorus Magnesium Total Bilirubin 0.4 AST 182 H D ALT 186 H D Alkaline Phosphatase 90 Total Protein 6.8 Albumin 3.5 Globulin 3.4 Albumin/Globulin Ratio 1.0 Arterial Blood Potassium 10/15/16 10/15/16 10/15/16 06:00 06:11 06:34 WBC 14.1 H RBC 3.38 L Hgb 9.2 L Hct 29.3 L MCV 86.6 MCH 27.3 MCHC 31.5 L RDW 16.8 H Plt Count 215 MPV 8.7 Neut % (Auto) 86.5 H Lymph % (Auto) 5.3 L [place] % (Auto) 7.8 Eos % (Auto) 0.1 Baso % (Auto) 0.3 Neut # 12.2 H Lymph # 0.7 L [place] # 1.1 H Eos # 0.0 Baso # 0.0 Neutrophils % (Manual) 83 H Band Neutrophils % 5 H Lymphocytes % (Manual) 6 L Monocytes % (Manual) 6 Platelet Estimate Normal Hypochromasia (manual) Slight Poikilocytosis (manual Slight Anisocytosis (manual) Slight Target Cells Slight Ovalocytes Slight Puncture Site pCO2 pO2 HCO3 ABG pH ABG Total CO2 ABG O2 Saturation ABG Base Excess ABG Hemoglobin ABG Carboxyhemoglobin POC ABG HHb (Measured) ABG Methemoglobin Ravi Test ABG Potassium A-a O2 Difference Respiratory Index Hgb O2 Saturation Sodium Chloride Glucose Lactate Vent Mode Mechanical Rate FiO2 Tidal Volume PEEP Potassium Carbon Dioxide Anion Gap BUN Creatinine Est GFR ( Amer) Est GFR (Non-Af Amer) POC Glucose (mg/dL) 267 H Random Glucose Lactic Acid 3.1 H Calcium Phosphorus Magnesium Total Bilirubin AST ALT Alkaline Phosphatase Total Protein Albumin Globulin Albumin/Globulin Ratio Arterial Blood Potassium 10/15/16 10/15/16 10/15/16 06:34 11:39 17:27 WBC RBC Hgb Hct MCV MCH MCHC RDW Plt Count MPV Neut % (Auto) Lymph % (Auto) [place] % (Auto) Eos % (Auto) Baso % (Auto) Neut # Lymph # [place] # Eos # Baso # Neutrophils % (Manual) Band Neutrophils % Lymphocytes % (Manual) Monocytes % (Manual) Platelet Estimate Hypochromasia (manual) Poikilocytosis (manual Anisocytosis (manual) Target Cells Ovalocytes Puncture Site pCO2 pO2 HCO3 ABG pH ABG Total CO2 ABG O2 Saturation ABG Base Excess ABG Hemoglobin ABG Carboxyhemoglobin POC ABG HHb (Measured) ABG Methemoglobin Ravi Test ABG Potassium A-a O2 Difference Respiratory Index Hgb O2 Saturation Sodium 139 Chloride 100 Glucose Lactate Vent Mode Mechanical Rate FiO2 Tidal Volume PEEP Potassium 4.1 Carbon Dioxide 25 Anion Gap 17 BUN 32 H Creatinine 0.7 L Est GFR ( Amer) > 60 Est GFR (Non-Af Amer) > 60 POC Glucose (mg/dL) 212 H 105 Random Glucose 273 H Lactic Acid Calcium 8.8 Phosphorus 4.6 H Magnesium 1.9 Total Bilirubin 0.3 AST 138 H D ALT 152 H Alkaline Phosphatase 83 Total Protein 6.1 L Albumin 3.1 L Globulin 3.0 Albumin/Globulin Ratio 1.0 Arterial Blood Potassium Critical Care Progress Note - Nutrition Nutrition: Nutrition Category Date Time Status NPO Diet [DIET] Diets 10/15/16 Dinner Active Attending/Attestation - Attestation I have personally seen and examined this patient.: Yes I have fully participated in the care of the patient.: Yes I have reviewed all pertinent clinical information: Yes Notes (Text): 10/15/16 20:55 Patient evaluated in am with resident s/p cardiac arrest, h/o nodular lung disease b/l, systolic and diastolic dysfunction heart failure, lbbb, dm, cerebral atrophy, weakness, was found unresponsive ROSC after 20 mins of ACLS protocol, patient was started overnight on hypothermia protocol cooling for 24 hr the till 1:30 am 10/16, pt has jerking movements involving his arms head eyes, was started on keppra, EEG ordered this am with neurology eval recommended high dose sedation to with versed to control movements, continue hypothermia protocol , right upper lobe infiltrate noticed, vanco and zosyn started to pna in hospital probably from aspiration. Has been on Eliquis on hold till rewarming completed. 10/15/16 21:03
--- NOTE | 2016-10-15 16:40 | CP.PCM.CON ---
History of Present Illness - History of Present Illness History of Present Illness: Mr. Mckee is an 81-year-old man with a past medical history of CHF, DM, HTN, CAD and multiple other co-morbidities who is s/p cardiac arrest requiring 6 rounds of epinephrine and defibrillation with ROSC after 28 minutes. Currently, he is intubated, off sedation and has rhythmic jerking movements lasting 2-3 seconds followed by about 45 seconds of no movement. These are continuous and the time in between movements can range to up to a few minutes. His pupils are pinpoint. He is breathing over the vent and has corneal reflexes. Review of Systems - Review of Systems Systems not reviewed;Unavailable: Intubated Past Patient History - Past Medical History & Family History Past Medical History?: Yes - Past Social History Smoking Status: Unknown If Ever Smoked - CARDIAC Hx Congestive Heart Failure: Yes Hx Hypertension: Yes - PULMONARY Hx Chronic Obstructive Pulmonary Disease (COPD): Yes - NEUROLOGICAL Hx Alzheimer's Disease: Yes Hx Dementia: Yes - ENDOCRINE/METABOLIC Hx Diabetes Mellitus Type 2: Yes Hx Hypothyroidism: Yes - MUSCULOSKELETAL/RHEUMATOLOGICAL Hx Arthritis: Yes - PSYCHIATRIC Hx Depression: Yes Hx Substance Use: No - SURGICAL HISTORY Hx Appendectomy: Yes - ANESTHESIA Hx Anesthesia: Yes Hx Anesthesia Reactions: No Hx Malignant Hyperthermia: No Has any member of the family had a problem w/ anesthesia?: No Meds Allergies/Adverse Reactions: Allergies Allergy/AdvReac Type Severity Reaction Status Date / Time No Known Allergies Allergy Unverified 07/15/16 13:18 - Medications Medications: Current Medications Acetaminophen (Tylenol 325mg Tab) 650 mg PO Q6 PRN PRN Reason: Pain, moderate (4-7) Last Admin: 10/13/16 09:44 Dose: 650 mg Apixaban (Eliquis) 2.5 mg PO BID [facility] Last Admin: 10/15/16 10:38 Dose: 2.5 mg Aspirin (Aspirin Chewable) 81 mg PO DAILY [facility] Last Admin: 10/15/16 10:37 Dose: 81 mg Divalproex Sodium (Depakote Sprinkles) 125 mg PO BID [facility] Last Admin: 10/15/16 10:38 Dose: 125 mg Levetiracetam 500 mg/ Dextrose 105 mls @ 420 mls/hr IVPB Q12H [facility] Last Admin: 10/15/16 11:17 Dose: 420 mls/hr Sodium Chloride (Sodium Chloride 0.9%) 1,000 mls @ 100 mls/hr IV .Q10H [facility] Last Admin: 10/15/16 13:35 Dose: 100 mls/hr Dopamine HCl/Dextrose (Dopamine 400mg/250ml D5w) 400 mg in 250 mls @ 4.423 mls/ hr IV .Q24H PRN; Protocol; 2 MCG/KG/MIN PRN Reason: TITRATE PER MD ORDER Last Titration: 10/15/16 15:29 Dose: 3 mcg/kg/min, 6.634 mls/hr Piperacillin Sod/Tazobactam (Sod 3.375 gm/ Sodium Chloride) 100 mls @ 200 mls/ hr IVPB Q6H [facility] Last Admin: 10/15/16 15:35 Dose: 200 mls/hr Vancomycin HCl 750 mg/ Sodium (Chloride) 250 mls @ 166.6 mls/hr IVPB Q12H [facility] Last Admin: 10/15/16 13:25 Dose: 166.6 mls/hr Levothyroxine Sodium (Synthroid) 37.5 mcg PO DAILY@0630 [facility] Last Admin: 10/15/16 06:54 Dose: Not Given Midazolam HCl (Versed Inj) 1 mg IVP Q1H PRN PRN Reason: Seizure activity Last Admin: 10/15/16 11:51 Dose: 1 mg Pantoprazole Sodium (Protonix Inj) 40 mg IVP DAILY [facility] Last Admin: 10/15/16 10:38 Dose: 40 mg Rosuvastatin Calcium (Crestor) 5 mg PO HS [facility] Last Admin: 10/15/16 00:00 Dose: Not Given Tamsulosin HCl (Flomax) 0.4 mg PO DAILY [facility] Last Admin: 10/15/16 10:38 Dose: 0.4 mg Physical Exam - Neurological Exam Additional comments: Intubated, off sedation, pupils pinpoint and sluggishly responsive, corneals are present, breathing over the ventilator. GCS=3T Results - Vital Signs Recent Vital Signs: Last Vital Signs Temp 90.9 F L 10/15/16 16:00 Pulse 96 H 10/15/16 16:06 Resp 21 10/15/16 16:06 BP 118/58 L 10/15/16 16:07 Pulse Ox 96 10/15/16 16:06 - Labs Result Diagrams: 10/15/16 06:34 10/15/16 06:34 Labs: Laboratory Results - last 24 hr 10/14/16 10/14/16 10/14/16 02:15 16:46 21:24 WBC RBC Hgb Hct MCV MCH MCHC RDW Plt Count MPV Neut % (Auto) Lymph % (Auto) [place] % (Auto) Eos % (Auto) Baso % (Auto) Neut # Lymph # [place] # Eos # Baso # Neutrophils % (Manual) Band Neutrophils % Lymphocytes % (Manual) Monocytes % (Manual) Platelet Estimate Hypochromasia (manual) Poikilocytosis (manual Anisocytosis (manual) Target Cells Ovalocytes Puncture Site Rradial pCO2 56 H pO2 435 H HCO3 24.5 ABG pH 7.29 L ABG Total CO2 28.6 H ABG O2 Saturation 99.7 H ABG Base Excess -0.7 ABG Hemoglobin ABG Carboxyhemoglobin POC ABG HHb (Measured) ABG Methemoglobin Ravi Test Pos ABG Potassium 4.6 A-a O2 Difference 208.0 Respiratory Index 0.5 Hgb O2 Saturation Sodium 141.0 Chloride 108.0 H Glucose 339 H Lactate 4.0 H* Vent Mode A/c Mechanical Rate 20 FiO2 100.0 Tidal Volume 450 PEEP 5 Potassium Carbon Dioxide Anion Gap BUN Creatinine Est GFR ( Amer) Est GFR (Non-Af Amer) POC Glucose (mg/dL) 178 H 194 H Random Glucose Lactic Acid Calcium Phosphorus Magnesium Total Bilirubin AST ALT Alkaline Phosphatase Total Protein Albumin Globulin Albumin/Globulin Ratio Arterial Blood Potassium 4.6 10/15/16 10/15/16 10/15/16 02:33 02:33 02:33 WBC 11.8 H RBC 3.90 L Hgb 10.6 L Hct 33.9 L MCV 86.8 MCH 27.2 MCHC 31.4 L RDW 17.1 H Plt Count 266 MPV 8.3 Neut % (Auto) 84.3 H Lymph % (Auto) 6.9 L [place] % (Auto) 8.0 Eos % (Auto) 0.0 Baso % (Auto) 0.8 Neut # 9.9 H Lymph # 0.8 L [place] # 0.9 H Eos # 0.0 Baso # 0.1 Neutrophils % (Manual) 82 H Band Neutrophils % 4 H Lymphocytes % (Manual) 7 L Monocytes % (Manual) 7 Platelet Estimate Normal Hypochromasia (manual) Poikilocytosis (manual Slight Anisocytosis (manual) Slight Target Cells Ovalocytes Puncture Site pCO2 pO2 HCO3 ABG pH ABG Total CO2 ABG O2 Saturation ABG Base Excess ABG Hemoglobin ABG Carboxyhemoglobin POC ABG HHb (Measured) ABG Methemoglobin Ravi Test ABG Potassium A-a O2 Difference Respiratory Index Hgb O2 Saturation Sodium 144 Chloride 101 Glucose Lactate Vent Mode Mechanical Rate FiO2 Tidal Volume PEEP Potassium 5.2 Carbon Dioxide 25 Anion Gap 23 H BUN 30 H Creatinine 0.7 L Est GFR ( Amer) > 60 Est GFR (Non-Af Amer) > 60 POC Glucose (mg/dL) Random Glucose 296 H Lactic Acid 3.7 H Calcium 8.8 Phosphorus Magnesium Total Bilirubin 0.4 AST 182 H D ALT 186 H D Alkaline Phosphatase 90 Total Protein 6.8 Albumin 3.5 Globulin 3.4 Albumin/Globulin Ratio 1.0 Arterial Blood Potassium 10/15/16 10/15/16 10/15/16 05:20 06:00 06:11 WBC RBC Hgb Hct MCV MCH MCHC RDW Plt Count MPV Neut % (Auto) Lymph % (Auto) [place] % (Auto) Eos % (Auto) Baso % (Auto) Neut # Lymph # [place] # Eos # Baso # Neutrophils % (Manual) Band Neutrophils % Lymphocytes % (Manual) Monocytes % (Manual) Platelet Estimate Hypochromasia (manual) Poikilocytosis (manual Anisocytosis (manual) Target Cells Ovalocytes Puncture Site Rradial pCO2 45 pO2 105 H HCO3 26.3 ABG pH 7.39 ABG Total CO2 28.6 H ABG O2 Saturation 98.3 H ABG Base Excess 1.8 ABG Hemoglobin 10.7 L ABG Carboxyhemoglobin 1.3 POC ABG HHb (Measured) 1.7 ABG Methemoglobin 1.1 Ravi Test Pos ABG Potassium A-a O2 Difference 124.0 Respiratory Index 1.2 Hgb O2 Saturation 95.9 Sodium Chloride Glucose Lactate Vent Mode A/c Mechanical Rate 20 FiO2 40.0 Tidal Volume 450 PEEP 5 Potassium Carbon Dioxide Anion Gap BUN Creatinine Est GFR ( Amer) Est GFR (Non-Af Amer) POC Glucose (mg/dL) 267 H Random Glucose Lactic Acid 3.1 H Calcium Phosphorus Magnesium Total Bilirubin AST ALT Alkaline Phosphatase Total Protein Albumin Globulin Albumin/Globulin Ratio Arterial Blood Potassium 10/15/16 10/15/16 10/15/16 06:34 06:34 11:39 WBC 14.1 H RBC 3.38 L Hgb 9.2 L Hct 29.3 L MCV 86.6 MCH 27.3 MCHC 31.5 L RDW 16.8 H Plt Count 215 MPV 8.7 Neut % (Auto) 86.5 H Lymph % (Auto) 5.3 L Bell % (Auto) 7.8 Eos % (Auto) 0.1 Baso % (Auto) 0.3 Neut # 12.2 H Lymph # 0.7 L Bell # 1.1 H Eos # 0.0 Baso # 0.0 Neutrophils % (Manual) 83 H Band Neutrophils % 5 H Lymphocytes % (Manual) 6 L Monocytes % (Manual) 6 Platelet Estimate Normal Hypochromasia (manual) Slight Poikilocytosis (manual Slight Anisocytosis (manual) Slight Target Cells Slight Ovalocytes Slight Puncture Site pCO2 pO2 HCO3 ABG pH ABG Total CO2 ABG O2 Saturation ABG Base Excess ABG Hemoglobin ABG Carboxyhemoglobin POC ABG HHb (Measured) ABG Methemoglobin Ravi Test ABG Potassium A-a O2 Difference Respiratory Index Hgb O2 Saturation Sodium 139 Chloride 100 Glucose Lactate Vent Mode Mechanical Rate FiO2 Tidal Volume PEEP Potassium 4.1 Carbon Dioxide 25 Anion Gap 17 BUN 32 H Creatinine 0.7 L Est GFR ( Amer) > 60 Est GFR (Non-Af Amer) > 60 POC Glucose (mg/dL) 212 H Random Glucose 273 H Lactic Acid Calcium 8.8 Phosphorus 4.6 H Magnesium 1.9 Total Bilirubin 0.3 AST 138 H D ALT 152 H Alkaline Phosphatase 83 Total Protein 6.1 L Albumin 3.1 L Globulin 3.0 Albumin/Globulin Ratio 1.0 Arterial Blood Potassium Assessment & Plan (1) Anoxic brain injury Assessment and Plan: Due to prolonged cardiac arrest. The patient is currently having rhythmic jerking movements that may be due to seizure activity as a result of diffuse hypoxic injury. Will obtain a CT of the head and review EEG that was done this morning. I recommend starting Versed drip at 10 mg/hr after a 10 mg bolus to treat these potential seizures. Furthermore, the patient should be stabilized and consider an MRI when possible. We may load with Keppra 1000 mg and titrate off the Versed to determine if he is therapeutic with the AED. Thank you. Status: Acute Priority: High
[2016-10-15] MEDS ORDERED: Midazolam 2 MG/2 ML VIAL IVP ONE ×2 (17:21→21:40)
--- NOTE | 2016-10-15 17:24 | CP.PCM.PN ---
Subjective - Date & Time of Evaluation Date of Evaluation: 10/15/16 Time of Evaluation: 13:00 - Subjective Subjective: clinically same Objective - Vital Signs/Intake and Output Vital Signs (last 24 hours): Temp Pulse Resp BP Pulse Ox 90.9 F L 96 H 21 118/58 L 96 10/15/16 16:00 10/15/16 16:06 10/15/16 16:06 10/15/16 16:07 10/15/16 16:06 Intake and Output: 10/15/16 10/15/16 06:59 18:59 Intake Total 950 621.6 Output Total 1200 745 Balance -250 -123.4 - Medications Medications: Current Medications Acetaminophen (Tylenol 325mg Tab) 650 mg PO Q6 PRN PRN Reason: Pain, moderate (4-7) Last Admin: 10/13/16 09:44 Dose: 650 mg Apixaban (Eliquis) 2.5 mg PO BID [facility] Last Admin: 10/15/16 10:38 Dose: 2.5 mg Aspirin (Aspirin Chewable) 81 mg PO DAILY [facility] Last Admin: 10/15/16 10:37 Dose: 81 mg Divalproex Sodium (Depakote Sprinkles) 125 mg PO BID [facility] Last Admin: 10/15/16 10:38 Dose: 125 mg Levetiracetam 500 mg/ Dextrose 105 mls @ 420 mls/hr IVPB Q12H [facility] Last Admin: 10/15/16 11:17 Dose: 420 mls/hr Sodium Chloride (Sodium Chloride 0.9%) 1,000 mls @ 100 mls/hr IV .Q10H [facility] Last Admin: 10/15/16 13:35 Dose: 100 mls/hr Dopamine HCl/Dextrose (Dopamine 400mg/250ml D5w) 400 mg in 250 mls @ 4.423 mls/ hr IV .Q24H PRN; Protocol; 2 MCG/KG/MIN PRN Reason: TITRATE PER MD ORDER Last Titration: 10/15/16 15:29 Dose: 3 mcg/kg/min, 6.634 mls/hr Piperacillin Sod/Tazobactam (Sod 3.375 gm/ Sodium Chloride) 100 mls @ 200 mls/ hr IVPB Q6H [facility] Last Admin: 10/15/16 15:35 Dose: 200 mls/hr Vancomycin HCl 750 mg/ Sodium (Chloride) 250 mls @ 166.6 mls/hr IVPB Q12H [facility] Last Admin: 10/15/16 13:25 Dose: 166.6 mls/hr Levothyroxine Sodium (Synthroid) 37.5 mcg PO DAILY@0630 [facility] Last Admin: 10/15/16 06:54 Dose: Not Given Midazolam HCl (Versed Inj) 1 mg IVP Q1H PRN PRN Reason: Seizure activity Last Admin: 10/15/16 11:51 Dose: 1 mg Pantoprazole Sodium (Protonix Inj) 40 mg IVP DAILY [facility] Last Admin: 10/15/16 10:38 Dose: 40 mg Rosuvastatin Calcium (Crestor) 5 mg PO HS [facility] Last Admin: 10/15/16 00:00 Dose: Not Given Tamsulosin HCl (Flomax) 0.4 mg PO DAILY [facility] Last Admin: 10/15/16 10:38 Dose: 0.4 mg - Labs Labs: 10/15/16 06:34 10/15/16 06:34 - Constitutional Appears: Well - Head Exam Head Exam: ATRAUMATIC, NORMAL INSPECTION, NORMOCEPHALIC - Eye Exam Eye Exam: EOMI, Normal appearance, PERRL Pupil Exam: NORMAL ACCOMODATION, PERRL - ENT Exam ENT Exam: Mucous Membranes Moist, Normal Exam - Neck Exam Neck Exam: Full ROM, Normal Inspection. absent: Lymphadenopathy - Respiratory Exam Respiratory Exam: Decreased Breath Sounds - Cardiovascular Exam Cardiovascular Exam: REGULAR RHYTHM, +S1, +S2 - GI/Abdominal Exam GI & Abdominal Exam: Soft, Diminished Bowel Sounds - Rectal Exam Rectal Exam: Deferred Assessment and Plan (1) Abnormal CXR (chest x-ray) Status: Acute (2) COPD (chronic obstructive pulmonary disease) Status: Acute (3) COPD exacerbation Status: Acute (4) Cardiac disease Status: Acute (5) Depression Status: Acute (6) Diabetes Status: Acute - Assessment and Plan (Free Text) Plan: S/P cardiac arrest Case seen and examined in ICU found to be unresponsive and pulseless yeterday resuscitated intubated on [facility] Antibiotics Neuro consult Monitor vitals Labs next a.m.
[2016-10-15] MEDS: Midazolam 50 mg/10 ml 100 MG in Dextrose 5% In Water 80 ML IV SCH (18:00)
--- NOTE | 2016-10-15 18:04 | PCM.EEG ---
Electroencephalogram Report - Electroencephalogram Report Procedure Date: 10/15/16 Interpretation: The patient was intubated and off sedation. The EEG was done to evaluate for seizures after cardiac arrest and likely anoxic brain injury. Technical: This is a digitally recorded electroencephalogram. The international 10-20 electrode placement system is used for scalp electrode placement. Eighteen channels of scalp EEG are recorded Another channel was used for for ECG. The data are stored digitally and reviewed in reformatted montages for optimal display. There was no organized background rhythm. Diffuse Abnormality : No well formed alpha activity was seen. Bilateral periodic lateralized Epileptiform discharge (BiPLED) was seen. Markedly suppressed EEG activity was observed. Impression: Impression: This EEG is abnormal. Diffuse slowing is seen, suggestive of a diffuse abnormality of the brain. PLED's is seen, this is suggestive of a subacute structural abnormality of the brain, and patient may be prone to haveing a clinical seizure. The clinical prognosis is likely poor; however, some of this activity could be epileptiform and treatment of these potential seizures may be attempted.
--- NOTE | 2016-10-15 18:19 | CT ---
PROCEDURE: CT HEAD WITHOUT CONTRAST. HISTORY: post cardiac arrest COMPARISON: Noncontrast head CT performed 10/15/16 TECHNIQUE: Axial computed tomography images were obtained through the head/brain without intravenous contrast. Radiation dose: Total exam DLP = 1288.40 mGy-cm. This CT exam was performed using one or more of the following dose reduction techniques: Automated exposure control, adjustment of the mA and/or kV according to patient size, and/or use of iterative reconstruction technique. FINDINGS: HEMORRHAGE: No intracranial hemorrhage. BRAIN: Diffuse atrophy with prominence of the ventricles and sulci noted. No mass effect or edema. Mild scattered white matter hypodensities, which are nonspecific, but often seen with chronic microvascular ischemic disease. Please note that MRI with diffusion imaging is more sensitive in the detection of acute ischemic event. VENTRICLES: No hydrocephalus. CALVARIUM: Unremarkable. PARANASAL SINUSES: Unremarkable as visualized. No significant inflammatory changes. MASTOID AIR CELLS: Unremarkable as visualized. No inflammatory changes. OTHER FINDINGS: None. IMPRESSION: Generalized atrophy. Nonspecific white matter changes. Please note that MRI with diffusion imaging is more sensitive in the detection of acute ischemic event.
[2016-10-16] MEDS ORDERED: Midazolam 2 MG/2 ML VIAL IVP ONE (00:30)
[2016-10-16] MEDS: Midazolam 50 mg/10 ml 100 MG in Dextrose 5% In Water 80 ML IV SCH ×5 (01:08→23:00)
[2016-10-16] MEDS: Piperacillin/Tazobact 3.375 GM in Sodium Chloride 100 ML IVPB SCH ×4 (03:00→21:00)
[2016-10-16] MEDS: Sodium Chloride 0.9% 1,000 ML IV SCH ×3 (05:47→21:06)
[2016-10-16] MEDS: Levothyroxine 75 MCG TAB PO SCH (05:47)
[2016-10-16 05:58] LABS: ABG MECHANICAL RATE 20; ARTERIAL BLOOD GAS MODE PRVC; ARTERIAL BLOOD HGB O2 SAT 92.7 % (95.0-98.0); ATERIAL BLOOD GAS PEEP 5; DRAW SITE R BRACH; HHB 4.8 % (0.0-5.0); METHEMOGLOBIN 0.5 % (0.0-3.0)
[2016-10-16] MEDS: DOPamine 400mg/250ml D5W 400 MG/250 ML BAG IV PRN (06:02)
[2016-10-16 06:33] LABS: BASO % 0.3 % (0.0-2.0); HEMATOCRIT 29.9 % (35.0-51.0); LYMPH # 0.8 K/uL (1.0-4.3); LYMPH % 12.3 % (20.0-40.0); MEAN CORPUSCULAR HEMOGLOBIN 27.9 pg (27.0-31.0); MEAN CORPUSCULAR HGB CONC 32.4 g/dL (33.0-37.0); MEAN PLATELET VOLUME 8.5 fL (7.2-11.7); MONO # 0.5 K/uL (0.0-0.8); MONO % 7.5 % (0.0-10.0); NRBC % 0.1 % (0.0-2.0); RED CELL DISTRIBUTION WIDTH 16.7 % (11.5-14.5); WHITE BLOOD COUNT 6.2 K/uL (4.8-10.8)
[2016-10-16 06:52] LABS: CHLORIDE 101 mmol/L (98-107); POTASSIUM 3.5 mmol/L (3.6-5.2); SODIUM 140 mmol/L (132-148)
[2016-10-16 06:54] LABS: ALB/GLOB RATIO 0.9 (1.0-2.1); ALKALINE PHOSPHATASE 74 U/L (38-126); AST/SGOT 87 U/L (17-59); BILIRUBIN,TOTAL 0.5 mg/dL (0.2-1.3); CARBON DIOXIDE 23 mmol/L (22-30); GFR AFRICAN-AMERICAN > 60
[2016-10-16 06:55] LABS: ALT/SGPT 104 U/L (21-72); BLOOD UREA NITROGEN 35 mg/dL (9-20); CALCIUM 8.2 mg/dl (8.6-10.4); GLUCOSE,RANDOM 118 mg/dL (75-110); MAGNESIUM 1.7 mg/dL (1.6-2.3)
[2016-10-16] MEDS: Divalproex 125 mg Sprinkle Capsule PO SCH ×2 (10:52→17:40)
--- NOTE | 2016-10-16 11:58 | RAD ---
HISTORY: intubated COMPARISON: 10/15/2016. FINDINGS: The endotracheal tube terminates 3.4 cm proximal to the bouchra. The nasogastric tube terminates in the stomach. LUNGS: There is interval development of airspace disease in the left perihilar region. There is persistent airspace disease in the peripheral right lung and bilateral lung apices. The lungs are hyperinflated and there are diffuse interstitial opacities in both lungs. PLEURA: There is a small right pleural effusion. Probable small left pleural effusion. No pneumothorax. CARDIOVASCULAR: Normal. OSSEOUS STRUCTURES: No significant abnormalities. VISUALIZED UPPER ABDOMEN: Normal. OTHER FINDINGS: None. IMPRESSION: 1. Interval development of left perihilar airspace disease which could represent pneumonia or pulmonary edema. Clinical follow-up is advised. 2. Persistent multifocal airspace disease in the peripheral right lung which may represent edema or pneumonia. Diffuse interstitial thickening in the lungs could represent background interstitial fibrosis.
--- NOTE | 2016-10-16 12:52 | CP.PCM.PN ---
Subjective - Date & Time of Evaluation Date of Evaluation: 10/16/16 Time of Evaluation: 12:48 - Subjective Subjective: Mr. Mckee was seen and examined today at bedside in the ICU. He did not have abnormal movements of the mouth/jaw or body as he did yesterday. He was apparently well sedated. Pupils were pinpoint, non-reactive, slight corneal response, breathing over the ventilator. Objective - Vital Signs/Intake and Output Vital Signs (last 24 hours): Temp Pulse Resp BP Pulse Ox 97.2 F L 74 21 97/46 L 96 10/16/16 07:00 10/16/16 07:10 10/16/16 07:10 10/16/16 07:00 10/16/16 07:10 Intake and Output: 10/16/16 10/16/16 06:59 18:59 Intake Total 2041.8 142 Output Total 487 42 Balance 1554.8 100 - Medications Medications: Current Medications Acetaminophen (Tylenol 325mg Tab) 650 mg PO Q6 PRN PRN Reason: Pain, moderate (4-7) Last Admin: 10/13/16 09:44 Dose: 650 mg Apixaban (Eliquis) 2.5 mg PO BID [facility] Last Admin: 10/16/16 10:52 Dose: 2.5 mg Aspirin (Aspirin Chewable) 81 mg PO DAILY [facility] Last Admin: 10/16/16 10:52 Dose: 81 mg Divalproex Sodium (Depakote Sprinkles) 125 mg PO BID [facility] Last Admin: 10/16/16 10:52 Dose: 125 mg Levetiracetam 500 mg/ Dextrose 105 mls @ 420 mls/hr IVPB Q12H [facility] Last Admin: 10/15/16 23:00 Dose: 420 mls/hr Sodium Chloride (Sodium Chloride 0.9%) 1,000 mls @ 100 mls/hr IV .Q10H [facility] Last Admin: 10/16/16 05:47 Dose: 100 mls/hr Dopamine HCl/Dextrose (Dopamine 400mg/250ml D5w) 400 mg in 250 mls @ 4.423 mls/ hr IV .Q24H PRN; Protocol; 2 MCG/KG/MIN PRN Reason: TITRATE PER MD ORDER Last Admin: 10/16/16 06:02 Dose: 10 mcg/kg/min, 22.113 mls/hr Piperacillin Sod/Tazobactam (Sod 3.375 gm/ Sodium Chloride) 100 mls @ 200 mls/ hr IVPB Q6H [facility] Last Admin: 10/16/16 10:54 Dose: 200 mls/hr Vancomycin HCl 750 mg/ Sodium (Chloride) 250 mls @ 166.6 mls/hr IVPB Q12H [facility] Last Admin: 10/16/16 10:54 Dose: 166.6 mls/hr Midazolam HCl 100 mg/ Dextrose 100 mls @ 10 mls/hr IV .Q10H [facility]; 10 MG/HR PRN Reason: Protocol Last Admin: 10/16/16 05:45 Dose: 20 mg/hr, 20 mls/hr Levothyroxine Sodium (Synthroid) 37.5 mcg PO DAILY@0630 [facility] Last Admin: 10/16/16 05:47 Dose: 37.5 mcg Midazolam HCl (Versed Inj) 1 mg IVP Q1H PRN PRN Reason: Seizure activity Last Admin: 10/15/16 11:51 Dose: 1 mg Pantoprazole Sodium (Protonix Inj) 40 mg IVP DAILY [facility] Last Admin: 10/16/16 10:52 Dose: 40 mg Rosuvastatin Calcium (Crestor) 5 mg PO HS [facility] Last Admin: 10/15/16 22:37 Dose: 5 mg Tamsulosin HCl (Flomax) 0.4 mg PO DAILY [facility] Last Admin: 10/16/16 10:52 Dose: 0.4 mg - Labs Labs: 10/16/16 06:19 10/16/16 06:19 - Neurological Exam Additional comments: GCS= 3T; Otherwise neurologically, he does not have any focal disfunction, has less seizure/myoclonic activity. Comatose. Assessment and Plan (1) Anoxic brain injury Assessment & Plan: EEG showed Bi-PLEDs, he seems to be responding to Versed since he does not currently have clinical seizures. However, his current condition along with the EEG findings is a very poor prognosis despite hypothermia efforts. Status: Acute
--- NOTE | 2016-10-16 17:02 | CP.CCUPN ---
<MinoAaron R - Last Filed: 10/16/16 17:07> CCU Subjective - Physician Review Subjective (Free Text): Patient seen and examined at bedside. Patient is currently unresponsive, intubated on ventilator. 10/16/16 17:07 CCU Objective - Vital Signs / Intake & Output Vital Signs (Last 4 hours): Vital Signs Pulse Resp BP Pulse Ox 10/16/16 14:00 77 22 94 L 10/16/16 13:50 77 22 94 L 10/16/16 13:48 77 21 96/43 L 94 L 10/16/16 13:40 76 19 94 L 10/16/16 13:30 77 22 94 L 10/16/16 13:20 76 21 94 L 10/16/16 13:18 76 21 95/44 L 94 L 10/16/16 13:10 75 20 94 L Intake and Output (Last 8hrs): Intake & Output 10/16/16 10/16/16 10/16/16 06:59 14:59 22:59 Intake Total 1478 1022.0 Output Total 336 57 Balance 1142 965.0 Intake: IV 349 Intake, IV Amount 1129 1022.0 Left Forearm 160 49 Righ Antecubital Y Port 825 750 Right Antecubital 144 223.0 Output: Urine 336 57 Urine, Voided 336 57 - Physical Exam Pupils: Positive for: Non-Reactive, Pinpoint Neck: Negative for: JVD Respiratory/Chest: Positive for: Clear to Auscultation. Negative for: Wheezes, Rales Cardiovascular: Positive for: Regular Rate and Rhythm. Negative for: Murmurs Abdomen: Positive for: Normal Bowel Sounds Lower Extremity: Negative for: Edema - Medications Active Medications: Active Medications Generic Name Dose Route Start Last Admin Trade Name Freq PRN Reason Stop Dose Admin Acetaminophen 650 mg 09/29/16 19:39 10/13/16 09:44 Tylenol 325mg Tab PO 650 mg Q6 PRN Administration Pain, moderate (4-7) Apixaban 2.5 mg 09/23/16 10:00 10/16/16 10:52 Eliquis PO 2.5 mg BID ARTURO Administration Aspirin 81 mg 09/16/16 10:30 10/16/16 10:52 Aspirin Chewable PO 81 mg DAILY ARTURO Administration Divalproex Sodium 125 mg 09/16/16 10:30 10/16/16 10:52 Depakote Sprinkles PO 125 mg BID ARTURO Administration Levetiracetam 500 mg/ Dextrose 105 mls @ 420 mls/hr 10/14/16 23:45 10/15/16 23:00 IVPB 420 mls/hr Q12H ARTURO Administration Sodium Chloride 1,000 mls @ 100 mls/hr 10/14/16 23:45 10/16/16 05:47 Sodium Chloride 0.9% IV 100 mls/hr .Q10H ARTURO Administration Dopamine HCl/Dextrose 400 mg in 250 mls @ 4.423 mls/hr 10/15/16 05:38 06:02 Dopamine 400mg/250ml D5w IV 10 mcg/kg/min .Q24H PRN 22.113 mls/hr TITRATE PER MD ORDER Administration Protocol 2 MCG/KG/MIN Piperacillin Sod/Tazobactam 100 mls @ 200 mls/hr 10/15/16 10:00 10/16/16 10: 54 Sod 3.375 gm/ Sodium Chloride IVPB 200 mls/hr Q6H ARTURO Administration Vancomycin HCl 750 mg/ Sodium 250 mls @ 166.6 mls/hr 10/15/16 10:00 10/16/16 10:54 Chloride IVPB 166.6 mls/hr Q12H ARTURO Administration Midazolam HCl 100 mg/ Dextrose 100 mls @ 10 mls/hr 10/15/16 17:30 10/16/16 05 :45 IV 20 mg/hr .Q10H ARTURO 20 mls/hr Protocol Administration 10 MG/HR Levothyroxine Sodium 37.5 mcg 09/30/16 06:30 10/16/16 05:47 Synthroid PO 37.5 mcg DAILY@0630 ARTURO Administration Midazolam HCl 1 mg 10/15/16 08:14 10/15/16 11:51 Versed Inj IVP 1 mg Q1H PRN Administration Seizure activity Pantoprazole Sodium 40 mg 10/15/16 10:00 10/16/16 10:52 Protonix Inj IVP 40 mg DAILY ARTURO Administration Rosuvastatin Calcium 5 mg 09/29/16 22:00 10/15/16 22:37 Crestor PO 5 mg HS ARTURO Administration Tamsulosin HCl 0.4 mg 09/16/16 10:30 10/16/16 10:52 Flomax PO 0.4 mg DAILY ARTURO Administration - Patient Studies Lab Studies: Microbiology Studies 10/15/16 11:00 Blood Culture - Preliminary Blood NO GROWTH AFTER 24 HOURS 10/15/16 10:45 Blood Culture - Preliminary Blood NO GROWTH AFTER 24 HOURS 10/15/16 08:50 MRSA Culture (Admit) - Final Naris MRSA NOT DETECTED 10/15/16 11:40 Urine Culture - Final Urine No Growth (<1,000 CFU/ML) 10/15/16 11:40 Gram Stain - Final Sputum Sputum Culture - Preliminary Gram Negative Javy Lab Studies 10/16/16 10/16/16 10/16/16 Range/Units 11:49 06:19 06:19 WBC 6.2 D (4.8-10.8) K/uL RBC 3.48 L (4.40-5.90) Mil/uL Hgb 9.7 L (12.0-18.0) g/dL Hct 29.9 L (35.0-51.0) % MCV 86.0 (80.0-94.0) fL MCH 27.9 (27.0-31.0) pg MCHC 32.4 L (33.0-37.0) g/dL RDW 16.7 H (11.5-14.5) % Plt Count 246 (130-400) K/uL MPV 8.5 (7.2-11.7) fL Neut % (Auto) 79.9 H (50.0-75.0) % Lymph % (Auto) 12.3 L (20.0-40.0) % Charles % (Auto) 7.5 (0.0-10.0) % Eos % (Auto) 0.0 (0.0-4.0) % Baso % (Auto) 0.3 (0.0-2.0) % Neut # 4.9 (1.8-7.0) K/uL Lymph # 0.8 L (1.0-4.3) K/uL Charles # 0.5 (0.0-0.8) K/uL Eos # 0.0 (0.0-0.7) K/uL Baso # 0.0 (0.0-0.2) K/uL Puncture Site pCO2 (35-45) mm/Hg pO2 (80-100) mm/Hg HCO3 (21-28) mmol/L ABG pH (7.35-7.45) ABG Total CO2 (22-28) mmol/L ABG O2 Saturation (95-98) % ABG Base Excess (-2.0-3.0) mmol/L ABG Hemoglobin (11.7-17.4) g/dL ABG Carboxyhemoglobin (0.5-1.5) % POC ABG HHb (Measured) (0.0-5.0) % ABG Methemoglobin (0.0-3.0) % Ravi Test A-a O2 Difference mm/Hg Respiratory Index Hgb O2 Saturation (95.0-98.0) % Vent Mode Mechanical Rate FiO2 % Tidal Volume PEEP Sodium 140 (132-148) mmol/L Potassium 3.5 L (3.6-5.2) mmol/L Chloride 101 (98-107) mmol/L Carbon Dioxide 23 (22-30) mmol/L Anion Gap 20 (10-20) BUN 35 H (9-20) mg/dL Creatinine 0.5 L (0.8-1.5) MG/DL Est GFR ( Amer) > 60 Est GFR (Non-Af Amer) > 60 POC Glucose (mg/dL) 150 H (65-110) mg/dL Random Glucose 118 H (75-110) mg/dL Calcium 8.2 L (8.6-10.4) mg/dl Phosphorus 5.0 H (2.5-4.5) mg/dL Magnesium 1.7 (1.6-2.3) mg/dL Total Bilirubin 0.5 (0.2-1.3) mg/dL AST 87 H (17-59) U/L ALT 104 H D (21-72) U/L Alkaline Phosphatase 74 (38-126) U/L Total Protein 6.0 L (6.3-8.3) g/dL Albumin 2.8 L (3.5-5.0) g/dL Globulin 3.2 (2.2-3.9) gm/dL Albumin/Globulin Ratio 0.9 L (1.0-2.1) 10/16/16 10/16/16 10/15/16 Range/Units 05:20 04:56 23:54 WBC (4.8-10.8) K/uL RBC (4.40-5.90) Mil/uL Hgb (12.0-18.0) g/dL Hct (35.0-51.0) % MCV (80.0-94.0) fL MCH (27.0-31.0) pg MCHC (33.0-37.0) g/dL RDW (11.5-14.5) % Plt Count (130-400) K/uL MPV (7.2-11.7) fL Neut % (Auto) (50.0-75.0) % Lymph % (Auto) (20.0-40.0) % Charles % (Auto) (0.0-10.0) % Eos % (Auto) (0.0-4.0) % Baso % (Auto) (0.0-2.0) % Neut # (1.8-7.0) K/uL Lymph # (1.0-4.3) K/uL Charles # (0.0-0.8) K/uL Eos # (0.0-0.7) K/uL Baso # (0.0-0.2) K/uL Puncture Site R brach pCO2 42 (35-45) mm/Hg pO2 65 L (80-100) mm/Hg HCO3 24.1 (21-28) mmol/L ABG pH 7.37 (7.35-7.45) ABG Total CO2 25.6 (22-28) mmol/L ABG O2 Saturation 95.1 (95-98) % ABG Base Excess -1.0 (-2.0-3.0) mmol/L ABG Hemoglobin 9.0 L (11.7-17.4) g/dL ABG Carboxyhemoglobin 2.0 H (0.5-1.5) % POC ABG HHb (Measured) 4.8 (0.0-5.0) % ABG Methemoglobin 0.5 (0.0-3.0) % Ravi Test Na A-a O2 Difference 168.0 mm/Hg Respiratory Index 2.6 Hgb O2 Saturation 92.7 L (95.0-98.0) % Vent Mode Prvc Mechanical Rate 20 FiO2 40.0 % Tidal Volume 450 PEEP 5 Sodium (132-148) mmol/L Potassium (3.6-5.2) mmol/L Chloride (98-107) mmol/L Carbon Dioxide (22-30) mmol/L Anion Gap (10-20) BUN (9-20) mg/dL Creatinine (0.8-1.5) MG/DL Est GFR ( Amer) Est GFR (Non-Af Amer) POC Glucose (mg/dL) 173 H 117 H (65-110) mg/dL Random Glucose (75-110) mg/dL Calcium (8.6-10.4) mg/dl Phosphorus (2.5-4.5) mg/dL Magnesium (1.6-2.3) mg/dL Total Bilirubin (0.2-1.3) mg/dL AST (17-59) U/L ALT (21-72) U/L Alkaline Phosphatase (38-126) U/L Total Protein (6.3-8.3) g/dL Albumin (3.5-5.0) g/dL Globulin (2.2-3.9) gm/dL Albumin/Globulin Ratio (1.0-2.1) 10/15/16 Range/Units 17:27 WBC (4.8-10.8) K/uL RBC (4.40-5.90) Mil/uL Hgb (12.0-18.0) g/dL Hct (35.0-51.0) % MCV (80.0-94.0) fL MCH (27.0-31.0) pg MCHC (33.0-37.0) g/dL RDW (11.5-14.5) % Plt Count (130-400) K/uL MPV (7.2-11.7) fL Neut % (Auto) (50.0-75.0) % Lymph % (Auto) (20.0-40.0) % Charles % (Auto) (0.0-10.0) % Eos % (Auto) (0.0-4.0) % Baso % (Auto) (0.0-2.0) % Neut # (1.8-7.0) K/uL Lymph # (1.0-4.3) K/uL Charles # (0.0-0.8) K/uL Eos # (0.0-0.7) K/uL Baso # (0.0-0.2) K/uL Puncture Site pCO2 (35-45) mm/Hg pO2 (80-100) mm/Hg HCO3 (21-28) mmol/L ABG pH (7.35-7.45) ABG Total CO2 (22-28) mmol/L ABG O2 Saturation (95-98) % ABG Base Excess (-2.0-3.0) mmol/L ABG Hemoglobin (11.7-17.4) g/dL ABG Carboxyhemoglobin (0.5-1.5) % POC ABG HHb (Measured) (0.0-5.0) % ABG Methemoglobin (0.0-3.0) % Ravi Test A-a O2 Difference mm/Hg Respiratory Index Hgb O2 Saturation (95.0-98.0) % Vent Mode Mechanical Rate FiO2 % Tidal Volume PEEP Sodium (132-148) mmol/L Potassium (3.6-5.2) mmol/L Chloride (98-107) mmol/L Carbon Dioxide (22-30) mmol/L Anion Gap (10-20) BUN (9-20) mg/dL Creatinine (0.8-1.5) MG/DL Est GFR ( Amer) Est GFR (Non-Af Amer) POC Glucose (mg/dL) 105 (65-110) mg/dL Random Glucose (75-110) mg/dL Calcium (8.6-10.4) mg/dl Phosphorus (2.5-4.5) mg/dL Magnesium (1.6-2.3) mg/dL Total Bilirubin (0.2-1.3) mg/dL AST (17-59) U/L ALT (21-72) U/L Alkaline Phosphatase (38-126) U/L Total Protein (6.3-8.3) g/dL Albumin (3.5-5.0) g/dL Globulin (2.2-3.9) gm/dL Albumin/Globulin Ratio (1.0-2.1) Laboratory Results - last 24 hr 10/15/16 10/15/16 10/16/16 17:27 23:54 04:56 WBC RBC Hgb Hct MCV MCH MCHC RDW Plt Count MPV Neut % (Auto) Lymph % (Auto) Charles % (Auto) Eos % (Auto) Baso % (Auto) Neut # Lymph # Charles # Eos # Baso # Puncture Site R brach pCO2 42 pO2 65 L HCO3 24.1 ABG pH 7.37 ABG Total CO2 25.6 ABG O2 Saturation 95.1 ABG Base Excess -1.0 ABG Hemoglobin 9.0 L ABG Carboxyhemoglobin 2.0 H POC ABG HHb (Measured) 4.8 ABG Methemoglobin 0.5 Ravi Test Na A-a O2 Difference 168.0 Respiratory Index 2.6 Hgb O2 Saturation 92.7 L Vent Mode Prvc Mechanical Rate 20 FiO2 40.0 Tidal Volume 450 PEEP 5 Sodium Potassium Chloride Carbon Dioxide Anion Gap BUN Creatinine Est GFR ( Amer) Est GFR (Non-Af Amer) POC Glucose (mg/dL) 105 117 H Random Glucose Calcium Phosphorus Magnesium Total Bilirubin AST ALT Alkaline Phosphatase Total Protein Albumin Globulin Albumin/Globulin Ratio 10/16/16 10/16/16 10/16/16 05:20 06:19 06:19 WBC 6.2 D RBC 3.48 L Hgb 9.7 L Hct 29.9 L MCV 86.0 MCH 27.9 MCHC 32.4 L RDW 16.7 H Plt Count 246 MPV 8.5 Neut % (Auto) 79.9 H Lymph % (Auto) 12.3 L Charles % (Auto) 7.5 Eos % (Auto) 0.0 Baso % (Auto) 0.3 Neut # 4.9 Lymph # 0.8 L Charles # 0.5 Eos # 0.0 Baso # 0.0 Puncture Site pCO2 pO2 HCO3 ABG pH ABG Total CO2 ABG O2 Saturation ABG Base Excess ABG Hemoglobin ABG Carboxyhemoglobin POC ABG HHb (Measured) ABG Methemoglobin Ravi Test A-a O2 Difference Respiratory Index Hgb O2 Saturation Vent Mode Mechanical Rate FiO2 Tidal Volume PEEP Sodium 140 Potassium 3.5 L Chloride 101 Carbon Dioxide 23 Anion Gap 20 BUN 35 H Creatinine 0.5 L Est GFR ( Amer) > 60 Est GFR (Non-Af Amer) > 60 POC Glucose (mg/dL) 173 H Random Glucose 118 H Calcium 8.2 L Phosphorus 5.0 H Magnesium 1.7 Total Bilirubin 0.5 AST 87 H ALT 104 H D Alkaline Phosphatase 74 Total Protein 6.0 L Albumin 2.8 L Globulin 3.2 Albumin/Globulin Ratio 0.9 L 10/16/16 11:49 WBC RBC Hgb Hct MCV MCH MCHC RDW Plt Count MPV Neut % (Auto) Lymph % (Auto) Charles % (Auto) Eos % (Auto) Baso % (Auto) Neut # Lymph # Charles # Eos # Baso # Puncture Site pCO2 pO2 HCO3 ABG pH ABG Total CO2 ABG O2 Saturation ABG Base Excess ABG Hemoglobin ABG Carboxyhemoglobin POC ABG HHb (Measured) ABG Methemoglobin Ravi Test A-a O2 Difference Respiratory Index Hgb O2 Saturation Vent Mode Mechanical Rate FiO2 Tidal Volume PEEP Sodium Potassium Chloride Carbon Dioxide Anion Gap BUN Creatinine Est GFR ( Amer) Est GFR (Non-Af Amer) POC Glucose (mg/dL) 150 H Random Glucose Calcium Phosphorus Magnesium Total Bilirubin AST ALT Alkaline Phosphatase Total Protein Albumin Globulin Albumin/Globulin Ratio Fingerstick Blood Sugar Results: 173 Review of Systems - Review of Systems Systems not reviewed;Unavailable: Intubated Critical Care Progress Note - Vent Settings TIDAL VOLUME:: 450 RESP RATE:: 20 FIO2:: 100 PEEP:: 5 - Nutrition Nutrition: Nutrition Category Date Time Status NPO Diet [DIET] Diets 10/15/16 Dinner Active Assessment/Plan - Assessment and Plan (Free Text) Assessment: Patient admitted since 07/15/16 with history of nodular lung disease b/l, systolic and diastolic dysfunction heart failure, lbbb, dm, cerebral atrophy, weakness,. Patient was found to be unresponsive and pulseless s/p cardiac arrest , a code blue was called evening of 10/14/16. ACLS protocol was performed and patient was intubated. After 28 minutes of CPR and defibrillation, patient had a mu-ism of spontaneous circulation. Patient was then transferred to the ICU. ICU Course: Patient was started overnight on hypothermia protocol cooling for 24 hr the until 1:30 am 10/16/16, pt has jerking movements involving his arms head eyes, was started on keppra, right upper lobe infiltrate noticed, vanco and zosyn started to pna in hospital probably from aspiration. Has been on Eliquis but on hold till rewarming completed. EEG shows diffuse slowing, PLED's seen suggesting subacute structural abnormality of brain, pt may be prone to having clinical seizure. Patient is homeless and will need guardianship from state for healthcare decisions. Ethics committee, Dr Rosio, has been consulted. Now on PRVC FIO2 40, pH 7.37, pCO2 42, pO2 65 CV: cardiac arrest of unclear source - code freeze for 24 hours, completed - aspirin 81mg po daily - dopamine drip - rosuvastatin 5mg po hs - EKG with LBBB as prior EKGs have also shown - ECHO - left ventricular is normal size. there is mild to moderate concentric left ventricular hypertrophy. the systolic function is midly to moderately impaired. septal hypokinesis. mild to moderate aortic regurgitation. mild pulmonary hypertension. 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 Diffuse slowing is seen, suggestive of a diffuse abnormality of the brain. PLED's is seen, this is suggestive of a subacute structural abnormality of the brain, and patient may be prone to having a clinical seizure. - versad 1mg q1h prn for seizure activity - divalproex 125mg po bid - levetiracetam 500mg iv q12 - Neurology consulted, Dr Yang - Psych consulted, Dr Bajwa Pulmonary: nodular opacity in chest - On PRVC, FIO2 40 - Chest CT - extensive bilateral fine nodular interstitial infiltrate both lower lobes. dense pleural based consolidation right lower lobe. subpleural emphysema. mild centrilobular pulmonary emphysema. left upper lobe nodules. 7mm and 9mm. recommend f/u noncontrast chest CT in 3 months. Multiple left upper lobe nodular calcifications, likely granulomatous. probable small airways disease posterior right upper lobe. findings are nonspecific and may reflect infection or inflammatory disease. - Pulmonary consulted, Dr Bakari meidna Endocrine: Hx of hypothyroidism - levothyroxine 37.5 mcg po daily GI: - pantoprazole 40mg iv daily Heme: anemia - Hgb stable at baseline level Renal: Hx of BPH - tamsulosin 0.4mg po daily MSK: L2 compression fracture - CT confirms acute appearing L2 compression fracture, no retropulsion seen per report. Ill defined soft tissue density seen, ? edema. Would recommend attempt MRI (unsure if patient will tolerate and cooperate) for further visualization - Neurosurgery consulted, Dr Rose -> no neurosurgical intervention at this time ID: leukocytosis - Chest CT: Multiple left upper lobe nodular calcifications, likely granulomatous. probable small airways disease posterior right upper lobe. findings are nonspecific and may reflect infection or inflammatory disease. - zosyn 3.375g iv q8 - vancomycin 750mg iv q12 - F/U blood cx, urine cx, sputum cx, MRSA screen Prophylaxis: - GI: protonix 40mg po daily - DVT: apixaban 2.5mg po bid - Diet: Tube Feed Disposition: Patient is homeless and will need guardianship from state for healthcare decisions. Ethics committee, Dr Avelar, has been consulted. <Spencer Holloway - Last Filed: 10/16/16 17:31> CCU Objective - Vital Signs / Intake & Output Vital Signs (Last 4 hours): Vital Signs Pulse Resp BP Pulse Ox 10/16/16 17:00 92 H 26 H 92 L 10/16/16 16:50 92 H 27 H 92 L 10/16/16 16:48 92 H 26 H 102/47 L 92 L 10/16/16 16:40 92 H 27 H 92 L 10/16/16 16:30 90 26 H 92 L 10/16/16 16:29 90 27 H 101/44 L 92 L 10/16/16 16:27 89 27 H 53/29 L 91 L 10/16/16 16:20 85 29 H 90 L 10/16/16 16:10 85 25 H 92 L 10/16/16 16:00 91 H 26 H 93 L 10/16/16 15:50 88 24 92 L 10/16/16 15:40 87 24 91 L 10/16/16 15:30 88 24 92 L 10/16/16 15:20 87 23 92 L 10/16/16 15:18 87 24 96/48 L 92 L 10/16/16 15:10 85 24 92 L 10/16/16 15:00 85 24 92 L 10/16/16 14:50 84 24 92 L 10/16/16 14:48 84 23 98/44 L 92 L 10/16/16 14:40 83 23 93 L 10/16/16 14:30 82 22 93 L 10/16/16 14:20 81 22 93 L 10/16/16 14:18 81 23 96/44 L 93 L 10/16/16 14:10 78 22 93 L 10/16/16 14:00 77 22 94 L 10/16/16 13:50 77 22 94 L 10/16/16 13:48 77 21 96/43 L 94 L 10/16/16 13:40 76 19 94 L 10/16/16 13:30 77 22 94 L Intake and Output (Last 8hrs): Intake & Output 10/16/16 10/16/16 10/16/16 06:59 14:59 22:59 Intake Total 1478 1022.0 381 Output Total 336 57 50 Balance 1142 965.0 331 Weight 115 lb Intake: IV 349 Intake, IV Amount 1129 1022.0 381 Left Forearm 160 49 Righ Antecubital Y Port 825 750 300 Right Antecubital 144 223.0 81 Output: Urine 336 57 50 Urine, Voided 336 57 50 - Medications Active Medications: Active Medications Generic Name Dose Route Start Last Admin Trade Name Freq PRN Reason Stop Dose Admin Acetaminophen 650 mg 09/29/16 19:39 10/13/16 09:44 Tylenol 325mg Tab PO 650 mg Q6 PRN Administration Pain, moderate (4-7) Apixaban 2.5 mg 09/23/16 10:00 10/16/16 10:52 Eliquis PO 2.5 mg BID ARTURO Administration Aspirin 81 mg 09/16/16 10:30 10/16/16 10:52 Aspirin Chewable PO 81 mg DAILY ARTURO Administration Divalproex Sodium 125 mg 09/16/16 10:30 10/16/16 10:52 Depakote Sprinkles PO 125 mg BID ARTURO Administration Levetiracetam 500 mg/ Dextrose 105 mls @ 420 mls/hr 10/14/16 23:45 10/15/16 23:00 IVPB 420 mls/hr Q12H ARTURO Administration Sodium Chloride 1,000 mls @ 100 mls/hr 10/14/16 23:45 10/16/16 05:47 Sodium Chloride 0.9% IV 100 mls/hr .Q10H ARTURO Administration Dopamine HCl/Dextrose 400 mg in 250 mls @ 4.423 mls/hr 10/15/16 05:38 06:02 Dopamine 400mg/250ml D5w IV 10 mcg/kg/min .Q24H PRN 22.113 mls/hr TITRATE PER MD ORDER Administration Protocol 2 MCG/KG/MIN Piperacillin Sod/Tazobactam 100 mls @ 200 mls/hr 10/15/16 10:00 10/16/16 10: 54 Sod 3.375 gm/ Sodium Chloride IVPB 200 mls/hr Q6H ARTURO Administration Vancomycin HCl 750 mg/ Sodium 250 mls @ 166.6 mls/hr 10/15/16 10:00 10/16/16 10:54 Chloride IVPB 166.6 mls/hr Q12H ARTURO Administration Midazolam HCl 100 mg/ Dextrose 100 mls @ 10 mls/hr 10/15/16 17:30 10/16/16 05 :45 IV 20 mg/hr .Q10H ARTURO 20 mls/hr Protocol Administration 10 MG/HR Levothyroxine Sodium 37.5 mcg 09/30/16 06:30 10/16/16 05:47 Synthroid PO 37.5 mcg DAILY@0630 ARTURO Administration Midazolam HCl 1 mg 10/15/16 08:14 10/15/16 11:51 Versed Inj IVP 1 mg Q1H PRN Administration Seizure activity Pantoprazole Sodium 40 mg 10/15/16 10:00 10/16/16 10:52 Protonix Inj IVP 40 mg DAILY ARTURO Administration Rosuvastatin Calcium 5 mg 09/29/16 22:00 10/15/16 22:37 Crestor PO 5 mg HS ARTURO Administration Tamsulosin HCl 0.4 mg 09/16/16 10:30 10/16/16 10:52 Flomax PO 0.4 mg DAILY ARTURO Administration - Patient Studies Lab Studies: Microbiology Studies 10/15/16 11:00 Blood Culture - Preliminary Blood NO GROWTH AFTER 24 HOURS 10/15/16 10:45 Blood Culture - Preliminary Blood NO GROWTH AFTER 24 HOURS 10/15/16 08:50 MRSA Culture (Admit) - Final Naris MRSA NOT DETECTED 10/15/16 11:40 Urine Culture - Final Urine No Growth (<1,000 CFU/ML) 10/15/16 11:40 Gram Stain - Final Sputum Sputum Culture - Preliminary Gram Negative Javy Lab Studies 10/16/16 10/16/16 10/16/16 Range/Units 11:49 06:19 06:19 WBC 6.2 D (4.8-10.8) K/uL RBC 3.48 L (4.40-5.90) Mil/uL Hgb 9.7 L (12.0-18.0) g/dL Hct 29.9 L (35.0-51.0) % MCV 86.0 (80.0-94.0) fL MCH 27.9 (27.0-31.0) pg MCHC 32.4 L (33.0-37.0) g/dL RDW 16.7 H (11.5-14.5) % Plt Count 246 (130-400) K/uL MPV 8.5 (7.2-11.7) fL Neut % (Auto) 79.9 H (50.0-75.0) % Lymph % (Auto) 12.3 L (20.0-40.0) % Charles % (Auto) 7.5 (0.0-10.0) % Eos % (Auto) 0.0 (0.0-4.0) % Baso % (Auto) 0.3 (0.0-2.0) % Neut # 4.9 (1.8-7.0) K/uL Lymph # 0.8 L (1.0-4.3) K/uL Charles # 0.5 (0.0-0.8) K/uL Eos # 0.0 (0.0-0.7) K/uL Baso # 0.0 (0.0-0.2) K/uL Puncture Site pCO2 (35-45) mm/Hg pO2 (80-100) mm/Hg HCO3 (21-28) mmol/L ABG pH (7.35-7.45) ABG Total CO2 (22-28) mmol/L ABG O2 Saturation (95-98) % ABG Base Excess (-2.0-3.0) mmol/L ABG Hemoglobin (11.7-17.4) g/dL ABG Carboxyhemoglobin (0.5-1.5) % POC ABG HHb (Measured) (0.0-5.0) % ABG Methemoglobin (0.0-3.0) % Ravi Test A-a O2 Difference mm/Hg Respiratory Index Hgb O2 Saturation (95.0-98.0) % Vent Mode Mechanical Rate FiO2 % Tidal Volume PEEP Sodium 140 (132-148) mmol/L Potassium 3.5 L (3.6-5.2) mmol/L Chloride 101 (98-107) mmol/L Carbon Dioxide 23 (22-30) mmol/L Anion Gap 20 (10-20) BUN 35 H (9-20) mg/dL Creatinine 0.5 L (0.8-1.5) MG/DL Est GFR ( Amer) > 60 Est GFR (Non-Af Amer) > 60 POC Glucose (mg/dL) 150 H (65-110) mg/dL Random Glucose 118 H (75-110) mg/dL Calcium 8.2 L (8.6-10.4) mg/dl Phosphorus 5.0 H (2.5-4.5) mg/dL Magnesium 1.7 (1.6-2.3) mg/dL Total Bilirubin 0.5 (0.2-1.3) mg/dL AST 87 H (17-59) U/L ALT 104 H D (21-72) U/L Alkaline Phosphatase 74 (38-126) U/L Total Protein 6.0 L (6.3-8.3) g/dL Albumin 2.8 L (3.5-5.0) g/dL Globulin 3.2 (2.2-3.9) gm/dL Albumin/Globulin Ratio 0.9 L (1.0-2.1) 10/16/16 10/16/16 10/15/16 Range/Units 05:20 04:56 23:54 WBC (4.8-10.8) K/uL RBC (4.40-5.90) Mil/uL Hgb (12.0-18.0) g/dL Hct (35.0-51.0) % MCV (80.0-94.0) fL MCH (27.0-31.0) pg MCHC (33.0-37.0) g/dL RDW (11.5-14.5) % Plt Count (130-400) K/uL MPV (7.2-11.7) fL Neut % (Auto) (50.0-75.0) % Lymph % (Auto) (20.0-40.0) % Charles % (Auto) (0.0-10.0) % Eos % (Auto) (0.0-4.0) % Baso % (Auto) (0.0-2.0) % Neut # (1.8-7.0) K/uL Lymph # (1.0-4.3) K/uL Charles # (0.0-0.8) K/uL Eos # (0.0-0.7) K/uL Baso # (0.0-0.2) K/uL Puncture Site R brach pCO2 42 (35-45) mm/Hg pO2 65 L (80-100) mm/Hg HCO3 24.1 (21-28) mmol/L ABG pH 7.37 (7.35-7.45) ABG Total CO2 25.6 (22-28) mmol/L ABG O2 Saturation 95.1 (95-98) % ABG Base Excess -1.0 (-2.0-3.0) mmol/L ABG Hemoglobin 9.0 L (11.7-17.4) g/dL ABG Carboxyhemoglobin 2.0 H (0.5-1.5) % POC ABG HHb (Measured) 4.8 (0.0-5.0) % ABG Methemoglobin 0.5 (0.0-3.0) % Ravi Test Na A-a O2 Difference 168.0 mm/Hg Respiratory Index 2.6 Hgb O2 Saturation 92.7 L (95.0-98.0) % Vent Mode Prvc Mechanical Rate 20 FiO2 40.0 % Tidal Volume 450 PEEP 5 Sodium (132-148) mmol/L Potassium (3.6-5.2) mmol/L Chloride (98-107) mmol/L Carbon Dioxide (22-30) mmol/L Anion Gap (10-20) BUN (9-20) mg/dL Creatinine (0.8-1.5) MG/DL Est GFR ( Amer) Est GFR (Non-Af Amer) POC Glucose (mg/dL) 173 H 117 H (65-110) mg/dL Random Glucose (75-110) mg/dL Calcium (8.6-10.4) mg/dl Phosphorus (2.5-4.5) mg/dL Magnesium (1.6-2.3) mg/dL Total Bilirubin (0.2-1.3) mg/dL AST (17-59) U/L ALT (21-72) U/L Alkaline Phosphatase (38-126) U/L Total Protein (6.3-8.3) g/dL Albumin (3.5-5.0) g/dL Globulin (2.2-3.9) gm/dL Albumin/Globulin Ratio (1.0-2.1) 10/15/16 Range/Units 17:27 WBC (4.8-10.8) K/uL RBC (4.40-5.90) Mil/uL Hgb (12.0-18.0) g/dL Hct (35.0-51.0) % MCV (80.0-94.0) fL MCH (27.0-31.0) pg MCHC (33.0-37.0) g/dL RDW (11.5-14.5) % Plt Count (130-400) K/uL MPV (7.2-11.7) fL Neut % (Auto) (50.0-75.0) % Lymph % (Auto) (20.0-40.0) % Charles % (Auto) (0.0-10.0) % Eos % (Auto) (0.0-4.0) % Baso % (Auto) (0.0-2.0) % Neut # (1.8-7.0) K/uL Lymph # (1.0-4.3) K/uL Charles # (0.0-0.8) K/uL Eos # (0.0-0.7) K/uL Baso # (0.0-0.2) K/uL Puncture Site pCO2 (35-45) mm/Hg pO2 (80-100) mm/Hg HCO3 (21-28) mmol/L ABG pH (7.35-7.45) ABG Total CO2 (22-28) mmol/L ABG O2 Saturation (95-98) % ABG Base Excess (-2.0-3.0) mmol/L ABG Hemoglobin (11.7-17.4) g/dL ABG Carboxyhemoglobin (0.5-1.5) % POC ABG HHb (Measured) (0.0-5.0) % ABG Methemoglobin (0.0-3.0) % Ravi Test A-a O2 Difference mm/Hg Respiratory Index Hgb O2 Saturation (95.0-98.0) % Vent Mode Mechanical Rate FiO2 % Tidal Volume PEEP Sodium (132-148) mmol/L Potassium (3.6-5.2) mmol/L Chloride (98-107) mmol/L Carbon Dioxide (22-30) mmol/L Anion Gap (10-20) BUN (9-20) mg/dL Creatinine (0.8-1.5) MG/DL Est GFR ( Amer) Est GFR (Non-Af Amer) POC Glucose (mg/dL) 105 (65-110) mg/dL Random Glucose (75-110) mg/dL Calcium (8.6-10.4) mg/dl Phosphorus (2.5-4.5) mg/dL Magnesium (1.6-2.3) mg/dL Total Bilirubin (0.2-1.3) mg/dL AST (17-59) U/L ALT (21-72) U/L Alkaline Phosphatase (38-126) U/L Total Protein (6.3-8.3) g/dL Albumin (3.5-5.0) g/dL Globulin (2.2-3.9) gm/dL Albumin/Globulin Ratio (1.0-2.1) Laboratory Results - last 24 hr 10/15/16 10/15/16 10/16/16 17:27 23:54 04:56 WBC RBC Hgb Hct MCV MCH MCHC RDW Plt Count MPV Neut % (Auto) Lymph % (Auto) Charles % (Auto) Eos % (Auto) Baso % (Auto) Neut # Lymph # Charles # Eos # Baso # Puncture Site R brach pCO2 42 pO2 65 L HCO3 24.1 ABG pH 7.37 ABG Total CO2 25.6 ABG O2 Saturation 95.1 ABG Base Excess -1.0 ABG Hemoglobin 9.0 L ABG Carboxyhemoglobin 2.0 H POC ABG HHb (Measured) 4.8 ABG Methemoglobin 0.5 Ravi Test Na A-a O2 Difference 168.0 Respiratory Index 2.6 Hgb O2 Saturation 92.7 L Vent Mode Prvc Mechanical Rate 20 FiO2 40.0 Tidal Volume 450 PEEP 5 Sodium Potassium Chloride Carbon Dioxide Anion Gap BUN Creatinine Est GFR ( Amer) Est GFR (Non-Af Amer) POC Glucose (mg/dL) 105 117 H Random Glucose Calcium Phosphorus Magnesium Total Bilirubin AST ALT Alkaline Phosphatase Total Protein Albumin Globulin Albumin/Globulin Ratio 10/16/16 10/16/16 10/16/16 05:20 06:19 06:19 WBC 6.2 D RBC 3.48 L Hgb 9.7 L Hct 29.9 L MCV 86.0 MCH 27.9 MCHC 32.4 L RDW 16.7 H Plt Count 246 MPV 8.5 Neut % (Auto) 79.9 H Lymph % (Auto) 12.3 L Charles % (Auto) 7.5 Eos % (Auto) 0.0 Baso % (Auto) 0.3 Neut # 4.9 Lymph # 0.8 L Charles # 0.5 Eos # 0.0 Baso # 0.0 Puncture Site pCO2 pO2 HCO3 ABG pH ABG Total CO2 ABG O2 Saturation ABG Base Excess ABG Hemoglobin ABG Carboxyhemoglobin POC ABG HHb (Measured) ABG Methemoglobin Ravi Test A-a O2 Difference Respiratory Index Hgb O2 Saturation Vent Mode Mechanical Rate FiO2 Tidal Volume PEEP Sodium 140 Potassium 3.5 L Chloride 101 Carbon Dioxide 23 Anion Gap 20 BUN 35 H Creatinine 0.5 L Est GFR ( Amer) > 60 Est GFR (Non-Af Amer) > 60 POC Glucose (mg/dL) 173 H Random Glucose 118 H Calcium 8.2 L Phosphorus 5.0 H Magnesium 1.7 Total Bilirubin 0.5 AST 87 H ALT 104 H D Alkaline Phosphatase 74 Total Protein 6.0 L Albumin 2.8 L Globulin 3.2 Albumin/Globulin Ratio 0.9 L 10/16/16 11:49 WBC RBC Hgb Hct MCV MCH MCHC RDW Plt Count MPV Neut % (Auto) Lymph % (Auto) Charles % (Auto) Eos % (Auto) Baso % (Auto) Neut # Lymph # Charles # Eos # Baso # Puncture Site pCO2 pO2 HCO3 ABG pH ABG Total CO2 ABG O2 Saturation ABG Base Excess ABG Hemoglobin ABG Carboxyhemoglobin POC ABG HHb (Measured) ABG Methemoglobin Ravi Test A-a O2 Difference Respiratory Index Hgb O2 Saturation Vent Mode Mechanical Rate FiO2 Tidal Volume PEEP Sodium Potassium Chloride Carbon Dioxide Anion Gap BUN Creatinine Est GFR ( Amer) Est GFR (Non-Af Amer) POC Glucose (mg/dL) 150 H Random Glucose Calcium Phosphorus Magnesium Total Bilirubin AST ALT Alkaline Phosphatase Total Protein Albumin Globulin Albumin/Globulin Ratio Critical Care Progress Note - Nutrition Nutrition: Nutrition Category Date Time Status NPO Diet [DIET] Diets 10/15/16 Dinner Active Attending/Attestation - Attestation I have personally seen and examined this patient.: Yes I have fully participated in the care of the patient.: Yes I have reviewed all pertinent clinical information: Yes Notes (Text): 10/16/16 17:29 I have seen and examined the patient. Medical records, lab studies, and imaging were reviewed by me and a management plan was formulated on multidisciplinary rounds with resident Dr. Walker. I agree with their above documented assessment and plan. Patient has anoxic brain injury with poor activity on EEG. Prognosis is extremely poor. Will contact risk management to get state appointed sales account representative or must consider withdrawing care, as patient ongoing care may be futile. Critical Care Time 35 minutes. Multi-disciplinary rounds were performed with house staff, nursing, speech therapy, respiratory therapy, pharmacy and nutrition with integrated input from the primary team/attending and other consulting services. The documented time is cumulative and includes review of patient data/exams/labs/chart review and examination of the patient on rounds and throughout the day; time is exclusive of any procedures or teaching time.
--- NOTE | 2016-10-16 17:48 | CP.PCM.PN ---
Subjective - Date & Time of Evaluation Date of Evaluation: 10/16/16 Time of Evaluation: 10:20 - Subjective Subjective: clinically same Objective - Vital Signs/Intake and Output Vital Signs (last 24 hours): Temp Pulse Resp BP Pulse Ox 97.3 F L 92 H 26 H 102/47 L 92 L 10/16/16 16:00 10/16/16 17:00 10/16/16 17:00 10/16/16 16:48 10/16/16 17:00 Intake and Output: 10/16/16 10/16/16 06:59 18:59 Intake Total 2041.8 1403.0 Output Total 487 107 Balance 1554.8 1296.0 - Medications Medications: Current Medications Acetaminophen (Tylenol 325mg Tab) 650 mg PO Q6 PRN PRN Reason: Pain, moderate (4-7) Last Admin: 10/13/16 09:44 Dose: 650 mg Apixaban (Eliquis) 2.5 mg PO BID [facility] Last Admin: 10/16/16 17:40 Dose: 2.5 mg Aspirin (Aspirin Chewable) 81 mg PO DAILY [facility] Last Admin: 10/16/16 10:52 Dose: 81 mg Divalproex Sodium (Depakote Sprinkles) 125 mg PO BID [facility] Last Admin: 10/16/16 17:40 Dose: 125 mg Levetiracetam 500 mg/ Dextrose 105 mls @ 420 mls/hr IVPB Q12H [facility] Last Admin: 10/15/16 23:00 Dose: 420 mls/hr Sodium Chloride (Sodium Chloride 0.9%) 1,000 mls @ 100 mls/hr IV .Q10H [facility] Last Admin: 10/16/16 17:39 Dose: Not Given Dopamine HCl/Dextrose (Dopamine 400mg/250ml D5w) 400 mg in 250 mls @ 4.423 mls/ hr IV .Q24H PRN; Protocol; 2 MCG/KG/MIN PRN Reason: TITRATE PER MD ORDER Last Admin: 10/16/16 06:02 Dose: 10 mcg/kg/min, 22.113 mls/hr Piperacillin Sod/Tazobactam (Sod 3.375 gm/ Sodium Chloride) 100 mls @ 200 mls/ hr IVPB Q6H [facility] Last Admin: 10/16/16 16:40 Dose: 200 mls/hr Vancomycin HCl 750 mg/ Sodium (Chloride) 250 mls @ 166.6 mls/hr IVPB Q12H [facility] Last Admin: 10/16/16 10:54 Dose: 166.6 mls/hr Midazolam HCl 100 mg/ Dextrose 100 mls @ 10 mls/hr IV .Q10H [facility]; 10 MG/HR PRN Reason: Protocol Last Admin: 10/16/16 05:45 Dose: 20 mg/hr, 20 mls/hr Levothyroxine Sodium (Synthroid) 37.5 mcg PO DAILY@0630 [facility] Last Admin: 10/16/16 05:47 Dose: 37.5 mcg Midazolam HCl (Versed Inj) 1 mg IVP Q1H PRN PRN Reason: Seizure activity Last Admin: 10/15/16 11:51 Dose: 1 mg Pantoprazole Sodium (Protonix Inj) 40 mg IVP DAILY [facility] Last Admin: 10/16/16 10:52 Dose: 40 mg Rosuvastatin Calcium (Crestor) 5 mg PO HS [facility] Last Admin: 10/15/16 22:37 Dose: 5 mg Tamsulosin HCl (Flomax) 0.4 mg PO DAILY [facility] Last Admin: 10/16/16 10:52 Dose: 0.4 mg - Labs Labs: 10/16/16 06:19 10/16/16 06:19 - Constitutional Appears: Well - Head Exam Head Exam: ATRAUMATIC, NORMAL INSPECTION, NORMOCEPHALIC - Eye Exam Eye Exam: EOMI, Normal appearance, PERRL Pupil Exam: NORMAL ACCOMODATION, PERRL - ENT Exam ENT Exam: Mucous Membranes Moist, Normal Exam - Neck Exam Neck Exam: Full ROM, Normal Inspection. absent: Lymphadenopathy - Respiratory Exam Respiratory Exam: Decreased Breath Sounds - Cardiovascular Exam Cardiovascular Exam: REGULAR RHYTHM, +S1, +S2 - GI/Abdominal Exam GI & Abdominal Exam: Soft, Diminished Bowel Sounds - Rectal Exam Rectal Exam: Deferred Assessment and Plan (1) Abnormal CXR (chest x-ray) Status: Acute (2) COPD (chronic obstructive pulmonary disease) Status: Acute (3) COPD exacerbation Status: Acute (4) Cardiac disease Status: Acute (5) Depression Status: Acute (6) Diabetes Status: Acute
[2016-10-17] MEDS: Sodium Chloride 0.9% 1,000 ML IV SCH ×3 (01:00→21:00)
[2016-10-17] MEDS: Piperacillin/Tazobact 3.375 GM in Sodium Chloride 100 ML IVPB SCH ×4 (03:00→21:00)
[2016-10-17] MEDS: DOPamine 400mg/250ml D5W 400 MG/250 ML BAG IV PRN (03:01)
[2016-10-17] MEDS: Midazolam 50 mg/10 ml 100 MG in Dextrose 5% In Water 80 ML IV SCH ×3 (05:24→19:30)
[2016-10-17 06:03] LABS: ABG MECHANICAL RATE 20; ARTERIAL BLOOD GAS MODE PRVC; ATERIAL BLOOD GAS PEEP 5; CARBOXYHEMOGLOBIN 1.9 % (0.5-1.5); DRAW SITE LRA; HHB 0.9 % (0.0-5.0); METHEMOGLOBIN 1.1 % (0.0-3.0)
[2016-10-17 06:21] LABS: BASO % 0.1 % (0.0-2.0); HEMATOCRIT 26.9 % (35.0-51.0); LYMPH # 0.5 K/uL (1.0-4.3); LYMPH % 4.1 % (20.0-40.0); MEAN CELL VOLUME 85.3 fL (80.0-94.0); MEAN CORPUSCULAR HEMOGLOBIN 27.3 pg (27.0-31.0); MEAN PLATELET VOLUME 8.5 fL (7.2-11.7); MONO # 0.4 K/uL (0.0-0.8); MONO % 3.5 % (0.0-10.0); PLATELET COUNT 273 K/uL (130-400); RED CELL DISTRIBUTION WIDTH 17.4 % (11.5-14.5); WHITE BLOOD COUNT 12.3 K/uL (4.8-10.8)
[2016-10-17 06:43] LABS: ALB/GLOB RATIO 0.8 (1.0-2.1); ALKALINE PHOSPHATASE 66 U/L (38-126); ALT/SGPT 75 U/L (21-72); AST/SGOT 45 U/L (17-59); BILIRUBIN,TOTAL 0.3 mg/dL (0.2-1.3); BLOOD UREA NITROGEN 27 mg/dL (9-20); CARBON DIOXIDE 23 mmol/L (22-30); CHLORIDE 105 mmol/L (98-107); GFR AFRICAN-AMERICAN > 60; GLUCOSE,RANDOM 175 mg/dL (75-110); MAGNESIUM 1.6 mg/dL (1.6-2.3); PHOSPHOROUS 3.9 mg/dL (2.5-4.5); POTASSIUM 3.3 mmol/L (3.6-5.2); SODIUM 139 mmol/L (132-148); TOTAL PROTEIN 5.5 g/dL (6.3-8.3)
[2016-10-17] MEDS: Levothyroxine 75 MCG TAB PO SCH (07:06)
--- NOTE | 2016-10-17 09:16 | RAD ---
HISTORY: intubated COMPARISON: Portable chest 10/16/2016 FINDINGS: LUNGS: Diminishing bilateral mid pulmonary infiltrates are identified superimposed over chronic interstitial pulmonary disease. PLEURA: Diminished right pleural effusion is noted with none on the left. No pneumothorax. CARDIOVASCULAR: Normal. OSSEOUS STRUCTURES: No significant abnormalities. VISUALIZED UPPER ABDOMEN: Nasogastric tube again identified. OTHER FINDINGS: Endotracheal tube is unchanged in position. IMPRESSION: Diminishing bilateral pulmonary infiltrate superimposed over chronic interstitial pulmonary disease. Diminishing right pleural effusion, minimal this time. None is seen at the left.
[2016-10-17] MEDS ORDERED: Potassium Chloride 20 mEq/15 ml LIQ UD PO ONE (10:37)
[2016-10-17] MEDS: Divalproex 125 mg Sprinkle Capsule PO SCH ×2 (11:04→17:49)
[2016-10-17 11:12] LABS: METAMYELOCYTE 2 % (0-0); NEUTROPHIL 64 % (50-75); TOTAL CELLS COUNTED 100
--- NOTE | 2016-10-17 14:22 | CP.PCM.PN ---
Subjective - Date & Time of Evaluation Date of Evaluation: 10/17/16 Time of Evaluation: 11:20 - Subjective Subjective: clinically same Objective - Vital Signs/Intake and Output Vital Signs (last 24 hours): Temp Pulse Resp BP Pulse Ox 98.6 F 87 29 H 99/51 L 97 10/17/16 04:00 10/17/16 07:17 10/17/16 07:17 10/17/16 07:18 10/17/16 07:17 Intake and Output: 10/17/16 10/17/16 06:59 18:59 Intake Total 1985 145 Output Total 696 58 Balance 1289 87 - Medications Medications: Current Medications Acetaminophen (Tylenol 325mg Tab) 650 mg PO Q6 PRN PRN Reason: Pain, moderate (4-7) Last Admin: 10/13/16 09:44 Dose: 650 mg Apixaban (Eliquis) 2.5 mg PO BID [facility] Last Admin: 10/17/16 11:02 Dose: 2.5 mg Aspirin (Aspirin Chewable) 81 mg PO DAILY [facility] Last Admin: 10/17/16 11:02 Dose: 81 mg Divalproex Sodium (Depakote Sprinkles) 125 mg PO BID [facility] Last Admin: 10/17/16 11:04 Dose: 125 mg Levetiracetam 500 mg/ Dextrose 105 mls @ 420 mls/hr IVPB Q12H [facility] Last Admin: 10/17/16 11:03 Dose: 420 mls/hr Sodium Chloride (Sodium Chloride 0.9%) 1,000 mls @ 100 mls/hr IV .Q10H [facility] Last Admin: 10/17/16 01:00 Dose: Not Given Dopamine HCl/Dextrose (Dopamine 400mg/250ml D5w) 400 mg in 250 mls @ 4.423 mls/ hr IV .Q24H PRN; Protocol; 2 MCG/KG/MIN PRN Reason: TITRATE PER MD ORDER Last Admin: 10/17/16 03:01 Dose: 10 mcg/kg/min, 22.113 mls/hr Piperacillin Sod/Tazobactam (Sod 3.375 gm/ Sodium Chloride) 100 mls @ 200 mls/ hr IVPB Q6H [facility] Last Admin: 10/17/16 11:03 Dose: 200 mls/hr Vancomycin HCl 750 mg/ Sodium (Chloride) 250 mls @ 166.6 mls/hr IVPB Q12H [facility] Last Admin: 10/17/16 10:45 Dose: 166.6 mls/hr Midazolam HCl 100 mg/ Dextrose 100 mls @ 10 mls/hr IV .Q10H [facility]; 10 MG/HR PRN Reason: Protocol Last Admin: 10/17/16 11:04 Dose: Not Given Levothyroxine Sodium (Synthroid) 37.5 mcg PO DAILY@0630 [facility] Last Admin: 10/17/16 07:06 Dose: 37.5 mcg Midazolam HCl (Versed Inj) 1 mg IVP Q1H PRN PRN Reason: Seizure activity Last Admin: 10/15/16 11:51 Dose: 1 mg Pantoprazole Sodium (Protonix Inj) 40 mg IVP DAILY [facility] Last Admin: 10/17/16 11:03 Dose: 40 mg Rosuvastatin Calcium (Crestor) 5 mg PO HS [facility] Last Admin: 10/16/16 21:07 Dose: 5 mg Tamsulosin HCl (Flomax) 0.4 mg PO DAILY [facility] Last Admin: 10/17/16 11:02 Dose: 0.4 mg - Labs Labs: 10/17/16 06:13 10/17/16 06:14 - Constitutional Appears: Well - Head Exam Head Exam: ATRAUMATIC, NORMAL INSPECTION, NORMOCEPHALIC - Eye Exam Eye Exam: EOMI, Normal appearance, PERRL Pupil Exam: NORMAL ACCOMODATION, PERRL - Neck Exam Neck Exam: Full ROM, Normal Inspection. absent: Lymphadenopathy - Respiratory Exam Respiratory Exam: Decreased Breath Sounds - Cardiovascular Exam Cardiovascular Exam: REGULAR RHYTHM, +S1, +S2. absent: Murmur - GI/Abdominal Exam GI & Abdominal Exam: Diminished Bowel Sounds - Rectal Exam Rectal Exam: Deferred Assessment and Plan (1) Abnormal CXR (chest x-ray) Status: Acute (2) COPD (chronic obstructive pulmonary disease) Status: Acute (3) COPD exacerbation Status: Acute (4) Cardiac disease Status: Acute (5) Depression Status: Acute (6) Diabetes Status: Acute
--- NOTE | 2016-10-17 16:25 | CP.CCUPN ---
CCU Subjective - Physician Review Events Since Last Encounter (Free Text): 10/17/16 16:26 no changes, comatose. CCU Objective - Vital Signs / Intake & Output Intake and Output (Last 8hrs): Intake & Output 10/17/16 10/17/16 10/17/16 06:59 14:59 22:59 Intake Total 1435 145 Output Total 464 58 Balance 971 87 Intake: IV 300 Intake, IV Amount 985 120 Left Forearm 40 5 Righ Antecubital Y Port 825 100 Right Antecubital 120 15 Tube Feeding 150 25 Output: Urine 464 58 Urine, Voided 464 58 - Physical Exam Head: Positive for: Atraumatic, Normocephalic Pupils: Positive for: Non-Reactive, Pinpoint Ears: Positive for: Normal Neck: Negative for: JVD Respiratory/Chest: Positive for: Clear to Auscultation. Negative for: Wheezes, Rales Cardiovascular: Positive for: Regular Rate and Rhythm. Negative for: Murmurs Abdomen: Positive for: Normal Bowel Sounds Lower Extremity: Negative for: Edema Neurological: Positive for: Other (comatose) Psychiatric: Negative for: Alert - Medications Active Medications: Active Medications Generic Name Dose Route Start Last Admin Trade Name Freq PRN Reason Stop Dose Admin Acetaminophen 650 mg 09/29/16 19:39 10/13/16 09:44 Tylenol 325mg Tab PO 650 mg Q6 PRN Administration Pain, moderate (4-7) Apixaban 2.5 mg 09/23/16 10:00 10/17/16 11:02 Eliquis PO 2.5 mg BID ARTURO Administration Aspirin 81 mg 09/16/16 10:30 10/17/16 11:02 Aspirin Chewable PO 81 mg DAILY ARTURO Administration Divalproex Sodium 125 mg 09/16/16 10:30 10/17/16 11:04 Depakote Sprinkles PO 125 mg BID ARTURO Administration Levetiracetam 500 mg/ Dextrose 105 mls @ 420 mls/hr 10/14/16 23:45 10/17/16 11:03 IVPB 420 mls/hr Q12H ARTURO Administration Sodium Chloride 1,000 mls @ 100 mls/hr 10/14/16 23:45 10/17/16 01:00 Sodium Chloride 0.9% IV Not Given .Q10H ARTURO Dopamine HCl/Dextrose 400 mg in 250 mls @ 4.423 mls/hr 10/15/16 05:38 03:01 Dopamine 400mg/250ml D5w IV 10 mcg/kg/min .Q24H PRN 22.113 mls/hr TITRATE PER MD ORDER Administration Protocol 2 MCG/KG/MIN Piperacillin Sod/Tazobactam 100 mls @ 200 mls/hr 10/15/16 10:00 10/17/16 11: 03 Sod 3.375 gm/ Sodium Chloride IVPB 200 mls/hr Q6H ARTURO Administration Vancomycin HCl 750 mg/ Sodium 250 mls @ 166.6 mls/hr 10/15/16 10:00 10/17/16 10:45 Chloride IVPB 166.6 mls/hr Q12H ARTURO Administration Midazolam HCl 100 mg/ Dextrose 100 mls @ 10 mls/hr 10/15/16 17:30 10/17/16 11 :04 IV Not Given .Q10H ARTURO Protocol 10 MG/HR Levothyroxine Sodium 37.5 mcg 09/30/16 06:30 10/17/16 07:06 Synthroid PO 37.5 mcg DAILY@0630 ARTURO Administration Midazolam HCl 1 mg 10/15/16 08:14 10/15/16 11:51 Versed Inj IVP 1 mg Q1H PRN Administration Seizure activity Pantoprazole Sodium 40 mg 10/15/16 10:00 10/17/16 11:03 Protonix Inj IVP 40 mg DAILY ARTURO Administration Rosuvastatin Calcium 5 mg 09/29/16 22:00 10/16/16 21:07 Crestor PO 5 mg HS ARTURO Administration Tamsulosin HCl 0.4 mg 09/16/16 10:30 10/17/16 11:02 Flomax PO 0.4 mg DAILY ARTURO Administration - Patient Studies Lab Studies: Microbiology Studies 10/15/16 11:40 Gram Stain - Final Sputum Sputum Culture - Final Serratia Marcescens 10/15/16 11:00 Blood Culture - Preliminary Blood NO GROWTH AFTER 48 HOURS 10/15/16 10:45 Blood Culture - Preliminary Blood NO GROWTH AFTER 48 HOURS Lab Studies 10/17/16 10/17/16 10/17/16 Range/Units 12:08 06:14 06:13 WBC 12.3 H D (4.8-10.8) K/uL RBC 3.16 L (4.40-5.90) Mil/uL Hgb 8.6 L (12.0-18.0) g/dL Hct 26.9 L (35.0-51.0) % MCV 85.3 (80.0-94.0) fL MCH 27.3 (27.0-31.0) pg MCHC 32.0 L (33.0-37.0) g/dL RDW 17.4 H (11.5-14.5) % Plt Count 273 (130-400) K/uL MPV 8.5 (7.2-11.7) fL Neut % (Auto) 92.3 H (50.0-75.0) % Lymph % (Auto) 4.1 L (20.0-40.0) % Moody % (Auto) 3.5 (0.0-10.0) % Eos % (Auto) 0.0 (0.0-4.0) % Baso % (Auto) 0.1 (0.0-2.0) % Neut # 11.3 H (1.8-7.0) K/uL Lymph # 0.5 L (1.0-4.3) K/uL Moody # 0.4 (0.0-0.8) K/uL Eos # 0.0 (0.0-0.7) K/uL Baso # 0.0 (0.0-0.2) K/uL Neutrophils % (Manual) 64 (50-75) % Band Neutrophils % 21 H* (0-2) % Lymphocytes % (Manual) 11 L (20-40) % Monocytes % (Manual) 2 (0-10) % Metamyelocytes % 2 H (0-0) % Platelet Estimate Normal (NORMAL) Hypochromasia (manual) Slight Poikilocytosis (manual Slight Anisocytosis (manual) Slight Ovalocytes Slight Puncture Site pCO2 (35-45) mm/Hg pO2 (80-100) mm/Hg HCO3 (21-28) mmol/L ABG pH (7.35-7.45) ABG Total CO2 (22-28) mmol/L ABG O2 Saturation (95-98) % ABG Base Excess (-2.0-3.0) mmol/L ABG Hemoglobin (11.7-17.4) g/dL ABG Carboxyhemoglobin (0.5-1.5) % POC ABG HHb (Measured) (0.0-5.0) % ABG Methemoglobin (0.0-3.0) % Ravi Test A-a O2 Difference mm/Hg Respiratory Index Hgb O2 Saturation (95.0-98.0) % Vent Mode Mechanical Rate FiO2 % Tidal Volume PEEP Sodium 139 (132-148) mmol/L Potassium 3.3 L (3.6-5.2) mmol/L Chloride 105 (98-107) mmol/L Carbon Dioxide 23 (22-30) mmol/L Anion Gap 14 (10-20) BUN 27 H (9-20) mg/dL Creatinine 0.8 (0.8-1.5) MG/DL Est GFR ( Amer) > 60 Est GFR (Non-Af Amer) > 60 POC Glucose (mg/dL) 204 H (65-110) mg/dL Random Glucose 175 H (75-110) mg/dL Calcium 8.0 L (8.6-10.4) mg/dl Phosphorus 3.9 (2.5-4.5) mg/dL Magnesium 1.6 (1.6-2.3) mg/dL Total Bilirubin 0.3 (0.2-1.3) mg/dL AST 45 (17-59) U/L ALT 75 H D (21-72) U/L Alkaline Phosphatase 66 (38-126) U/L Total Protein 5.5 L (6.3-8.3) g/dL Albumin 2.5 L (3.5-5.0) g/dL Globulin 3.0 (2.2-3.9) gm/dL Albumin/Globulin Ratio 0.8 L (1.0-2.1) 10/17/16 10/17/16 10/17/16 Range/Units 05:40 05:27 00:17 WBC (4.8-10.8) K/uL RBC (4.40-5.90) Mil/uL Hgb (12.0-18.0) g/dL Hct (35.0-51.0) % MCV (80.0-94.0) fL MCH (27.0-31.0) pg MCHC (33.0-37.0) g/dL RDW (11.5-14.5) % Plt Count (130-400) K/uL MPV (7.2-11.7) fL Neut % (Auto) (50.0-75.0) % Lymph % (Auto) (20.0-40.0) % Moody % (Auto) (0.0-10.0) % Eos % (Auto) (0.0-4.0) % Baso % (Auto) (0.0-2.0) % Neut # (1.8-7.0) K/uL Lymph # (1.0-4.3) K/uL Moody # (0.0-0.8) K/uL Eos # (0.0-0.7) K/uL Baso # (0.0-0.2) K/uL Neutrophils % (Manual) (50-75) % Band Neutrophils % (0-2) % Lymphocytes % (Manual) (20-40) % Monocytes % (Manual) (0-10) % Metamyelocytes % (0-0) % Platelet Estimate (NORMAL) Hypochromasia (manual) Poikilocytosis (manual Anisocytosis (manual) Ovalocytes Puncture Site Lra pCO2 41 (35-45) mm/Hg pO2 87 (80-100) mm/Hg HCO3 24.3 (21-28) mmol/L ABG pH 7.38 (7.35-7.45) ABG Total CO2 25.6 (22-28) mmol/L ABG O2 Saturation 99.1 H (95-98) % ABG Base Excess -0.8 (-2.0-3.0) mmol/L ABG Hemoglobin 7.9 L (11.7-17.4) g/dL ABG Carboxyhemoglobin 1.9 H (0.5-1.5) % POC ABG HHb (Measured) 0.9 (0.0-5.0) % ABG Methemoglobin 1.1 (0.0-3.0) % Ravi Test Na A-a O2 Difference 218.0 mm/Hg Respiratory Index 2.5 Hgb O2 Saturation 96.0 (95.0-98.0) % Vent Mode Prvc Mechanical Rate 20 FiO2 50.0 % Tidal Volume 450 PEEP 5 Sodium (132-148) mmol/L Potassium (3.6-5.2) mmol/L Chloride (98-107) mmol/L Carbon Dioxide (22-30) mmol/L Anion Gap (10-20) BUN (9-20) mg/dL Creatinine (0.8-1.5) MG/DL Est GFR ( Amer) Est GFR (Non-Af Amer) POC Glucose (mg/dL) 184 H 154 H (65-110) mg/dL Random Glucose (75-110) mg/dL Calcium (8.6-10.4) mg/dl Phosphorus (2.5-4.5) mg/dL Magnesium (1.6-2.3) mg/dL Total Bilirubin (0.2-1.3) mg/dL AST (17-59) U/L ALT (21-72) U/L Alkaline Phosphatase (38-126) U/L Total Protein (6.3-8.3) g/dL Albumin (3.5-5.0) g/dL Globulin (2.2-3.9) gm/dL Albumin/Globulin Ratio (1.0-2.1) 10/16/16 Range/Units 17:44 WBC (4.8-10.8) K/uL RBC (4.40-5.90) Mil/uL Hgb (12.0-18.0) g/dL Hct (35.0-51.0) % MCV (80.0-94.0) fL MCH (27.0-31.0) pg MCHC (33.0-37.0) g/dL RDW (11.5-14.5) % Plt Count (130-400) K/uL MPV (7.2-11.7) fL Neut % (Auto) (50.0-75.0) % Lymph % (Auto) (20.0-40.0) % Moody % (Auto) (0.0-10.0) % Eos % (Auto) (0.0-4.0) % Baso % (Auto) (0.0-2.0) % Neut # (1.8-7.0) K/uL Lymph # (1.0-4.3) K/uL Moody # (0.0-0.8) K/uL Eos # (0.0-0.7) K/uL Baso # (0.0-0.2) K/uL Neutrophils % (Manual) (50-75) % Band Neutrophils % (0-2) % Lymphocytes % (Manual) (20-40) % Monocytes % (Manual) (0-10) % Metamyelocytes % (0-0) % Platelet Estimate (NORMAL) Hypochromasia (manual) Poikilocytosis (manual Anisocytosis (manual) Ovalocytes Puncture Site pCO2 (35-45) mm/Hg pO2 (80-100) mm/Hg HCO3 (21-28) mmol/L ABG pH (7.35-7.45) ABG Total CO2 (22-28) mmol/L ABG O2 Saturation (95-98) % ABG Base Excess (-2.0-3.0) mmol/L ABG Hemoglobin (11.7-17.4) g/dL ABG Carboxyhemoglobin (0.5-1.5) % POC ABG HHb (Measured) (0.0-5.0) % ABG Methemoglobin (0.0-3.0) % Ravi Test A-a O2 Difference mm/Hg Respiratory Index Hgb O2 Saturation (95.0-98.0) % Vent Mode Mechanical Rate FiO2 % Tidal Volume PEEP Sodium (132-148) mmol/L Potassium (3.6-5.2) mmol/L Chloride (98-107) mmol/L Carbon Dioxide (22-30) mmol/L Anion Gap (10-20) BUN (9-20) mg/dL Creatinine (0.8-1.5) MG/DL Est GFR ( Amer) Est GFR (Non-Af Amer) POC Glucose (mg/dL) 141 H (65-110) mg/dL Random Glucose (75-110) mg/dL Calcium (8.6-10.4) mg/dl Phosphorus (2.5-4.5) mg/dL Magnesium (1.6-2.3) mg/dL Total Bilirubin (0.2-1.3) mg/dL AST (17-59) U/L ALT (21-72) U/L Alkaline Phosphatase (38-126) U/L Total Protein (6.3-8.3) g/dL Albumin (3.5-5.0) g/dL Globulin (2.2-3.9) gm/dL Albumin/Globulin Ratio (1.0-2.1) Laboratory Results - last 24 hr 10/16/16 10/17/16 10/17/16 17:44 00:17 05:27 WBC RBC Hgb Hct MCV MCH MCHC RDW Plt Count MPV Neut % (Auto) Lymph % (Auto) Moody % (Auto) Eos % (Auto) Baso % (Auto) Neut # Lymph # Moody # Eos # Baso # Neutrophils % (Manual) Band Neutrophils % Lymphocytes % (Manual) Monocytes % (Manual) Metamyelocytes % Platelet Estimate Hypochromasia (manual) Poikilocytosis (manual Anisocytosis (manual) Ovalocytes Puncture Site Lra pCO2 41 pO2 87 HCO3 24.3 ABG pH 7.38 ABG Total CO2 25.6 ABG O2 Saturation 99.1 H ABG Base Excess -0.8 ABG Hemoglobin 7.9 L ABG Carboxyhemoglobin 1.9 H POC ABG HHb (Measured) 0.9 ABG Methemoglobin 1.1 Ravi Test Na A-a O2 Difference 218.0 Respiratory Index 2.5 Hgb O2 Saturation 96.0 Vent Mode Prvc Mechanical Rate 20 FiO2 50.0 Tidal Volume 450 PEEP 5 Sodium Potassium Chloride Carbon Dioxide Anion Gap BUN Creatinine Est GFR ( Amer) Est GFR (Non-Af Amer) POC Glucose (mg/dL) 141 H 154 H Random Glucose Calcium Phosphorus Magnesium Total Bilirubin AST ALT Alkaline Phosphatase Total Protein Albumin Globulin Albumin/Globulin Ratio 10/17/16 10/17/16 10/17/16 05:40 06:13 06:14 WBC 12.3 H D RBC 3.16 L Hgb 8.6 L Hct 26.9 L MCV 85.3 MCH 27.3 MCHC 32.0 L RDW 17.4 H Plt Count 273 MPV 8.5 Neut % (Auto) 92.3 H Lymph % (Auto) 4.1 L Moody % (Auto) 3.5 Eos % (Auto) 0.0 Baso % (Auto) 0.1 Neut # 11.3 H Lymph # 0.5 L Moody # 0.4 Eos # 0.0 Baso # 0.0 Neutrophils % (Manual) 64 Band Neutrophils % 21 H* Lymphocytes % (Manual) 11 L Monocytes % (Manual) 2 Metamyelocytes % 2 H Platelet Estimate Normal Hypochromasia (manual) Slight Poikilocytosis (manual Slight Anisocytosis (manual) Slight Ovalocytes Slight Puncture Site pCO2 pO2 HCO3 ABG pH ABG Total CO2 ABG O2 Saturation ABG Base Excess ABG Hemoglobin ABG Carboxyhemoglobin POC ABG HHb (Measured) ABG Methemoglobin Ravi Test A-a O2 Difference Respiratory Index Hgb O2 Saturation Vent Mode Mechanical Rate FiO2 Tidal Volume PEEP Sodium 139 Potassium 3.3 L Chloride 105 Carbon Dioxide 23 Anion Gap 14 BUN 27 H Creatinine 0.8 Est GFR ( Amer) > 60 Est GFR (Non-Af Amer) > 60 POC Glucose (mg/dL) 184 H Random Glucose 175 H Calcium 8.0 L Phosphorus 3.9 Magnesium 1.6 Total Bilirubin 0.3 AST 45 ALT 75 H D Alkaline Phosphatase 66 Total Protein 5.5 L Albumin 2.5 L Globulin 3.0 Albumin/Globulin Ratio 0.8 L 10/17/16 12:08 WBC RBC Hgb Hct MCV MCH MCHC RDW Plt Count MPV Neut % (Auto) Lymph % (Auto) Moody % (Auto) Eos % (Auto) Baso % (Auto) Neut # Lymph # Moody # Eos # Baso # Neutrophils % (Manual) Band Neutrophils % Lymphocytes % (Manual) Monocytes % (Manual) Metamyelocytes % Platelet Estimate Hypochromasia (manual) Poikilocytosis (manual Anisocytosis (manual) Ovalocytes Puncture Site pCO2 pO2 HCO3 ABG pH ABG Total CO2 ABG O2 Saturation ABG Base Excess ABG Hemoglobin ABG Carboxyhemoglobin POC ABG HHb (Measured) ABG Methemoglobin Ravi Test A-a O2 Difference Respiratory Index Hgb O2 Saturation Vent Mode Mechanical Rate FiO2 Tidal Volume PEEP Sodium Potassium Chloride Carbon Dioxide Anion Gap BUN Creatinine Est GFR ( Amer) Est GFR (Non-Af Amer) POC Glucose (mg/dL) 204 H Random Glucose Calcium Phosphorus Magnesium Total Bilirubin AST ALT Alkaline Phosphatase Total Protein Albumin Globulin Albumin/Globulin Ratio Fingerstick Blood Sugar Results: 184 Review of Systems - Review of Systems Systems not reviewed;Unavailable: Intubated Critical Care Progress Note - Ventilator Checklist Head of Bed 30 Degrees: Yes PUD Prophalyxis: Yes DVT Prophylaxis: Yes - Nutrition Nutrition: Nutrition Category Date Time Status NPO Diet [DIET] Diets 10/15/16 Dinner Active Assessment/Plan (1) Anoxic brain injury Assessment and plan: Patient admitted since 07/15/16 with history of nodular lung disease b/l, systolic and diastolic dysfunction heart failure, lbbb, dm, cerebral atrophy, weakness,. Patient was found to be unresponsive and pulseless s/p cardiac arrest , a code blue was called evening of 10/14/16. ACLS protocol was performed and patient was intubated. After 28 minutes of CPR and defibrillation, patient had a hinduism of spontaneous circulation. Patient was then transferred to the ICU. ICU Course: Patient was started overnight on hypothermia protocol cooling for 24 hr the until 1:30 am 10/16/16, pt has jerking movements involving his arms head eyes, was started on keppra, right upper lobe infiltrate noticed, vanco and zosyn started to pna in hospital probably from aspiration. Has been on Eliquis but on hold till rewarming completed. EEG shows diffuse slowing, PLED's seen suggesting subacute structural abnormality of brain, pt may be prone to having clinical seizure. Patient is homeless and will need guardianship from state for healthcare decisions. Ethics committee, Dr Avelar, has been consulted. Now on PRVC FIO2 40, pH 7.37, pCO2 42, pO2 65 CV: cardiac arrest of unclear source - code freeze for 24 hours, completed - aspirin 81mg po daily - dopamine drip - rosuvastatin 5mg po hs - EKG with LBBB as prior EKGs have also shown - ECHO - left ventricular is normal size. there is mild to moderate concentric left ventricular hypertrophy. the systolic function is midly to moderately impaired. septal hypokinesis. mild to moderate aortic regurgitation. mild pulmonary hypertension. 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 Diffuse slowing is seen, suggestive of a diffuse abnormality of the brain. PLED's is seen, this is suggestive of a subacute structural abnormality of the brain, and patient may be prone to having a clinical seizure. - versad 1mg q1h prn for seizure activity - divalproex 125mg po bid - levetiracetam 500mg iv q12 - Neurology consulted, Dr Yang - Psych consulted, Dr Bajwa Pulmonary: nodular opacity in chest - On PRVC, FIO2 40 - Chest CT - extensive bilateral fine nodular interstitial infiltrate both lower lobes. dense pleural based consolidation right lower lobe. subpleural emphysema. mild centrilobular pulmonary emphysema. left upper lobe nodules. 7mm and 9mm. recommend f/u noncontrast chest CT in 3 months. Multiple left upper lobe nodular calcifications, likely granulomatous. probable small airways disease posterior right upper lobe. findings are nonspecific and may reflect infection or inflammatory disease. - Pulmonary consulted, Dr Villegas - adam Endocrine: Hx of hypothyroidism - levothyroxine 37.5 mcg po daily GI: - pantoprazole 40mg iv daily Heme: anemia - Hgb stable at baseline level Renal: Hx of BPH - tamsulosin 0.4mg po daily MSK: L2 compression fracture - CT confirms acute appearing L2 compression fracture, no retropulsion seen per report. Ill defined soft tissue density seen, ? edema. Would recommend attempt MRI (unsure if patient will tolerate and cooperate) for further visualization - Neurosurgery consulted, Dr Rose -> no neurosurgical intervention at this time ID: leukocytosis - Chest CT: Multiple left upper lobe nodular calcifications, likely granulomatous. probable small airways disease posterior right upper lobe. findings are nonspecific and may reflect infection or inflammatory disease. - zosyn 3.375g iv q8 - vancomycin 750mg iv q12 - F/U blood cx, urine cx, sputum cx, MRSA screen Prophylaxis: - GI: protonix 40mg po daily - DVT: apixaban 2.5mg po bid - Diet: Tube Feed Disposition: Patient is homeless and will need guardianship from state for healthcare decisions. Ethics committee, Dr Avelar, has been consulted. Finished rewarming phase, patient is Still unresponsive, no improvement in clinical status. Current Visit: Yes Status: Acute Priority: High
[2016-10-18] MEDS: Piperacillin/Tazobact 3.375 GM in Sodium Chloride 100 ML IVPB SCH ×4 (03:00→21:11)
[2016-10-18] MEDS: Levothyroxine 75 MCG TAB PO SCH (05:33)
[2016-10-18 05:54] LABS: BASO % 0.3 % (0.0-2.0); EOS % 0.1 % (0.0-4.0); HEMATOCRIT 24.7 % (35.0-51.0); LYMPH # 1.1 K/uL (1.0-4.3); LYMPH % 9.2 % (20.0-40.0); MEAN CELL VOLUME 85.2 fL (80.0-94.0); MEAN CORPUSCULAR HEMOGLOBIN 27.4 pg (27.0-31.0); MEAN CORPUSCULAR HGB CONC 32.1 g/dL (33.0-37.0); MEAN PLATELET VOLUME 8.1 fL (7.2-11.7); MONO # 0.4 K/uL (0.0-0.8); MONO % 3.1 % (0.0-10.0); NRBC % 0.1 % (0.0-2.0); PLATELET COUNT 245 K/uL (130-400); RED CELL DISTRIBUTION WIDTH 17.5 % (11.5-14.5); WHITE BLOOD COUNT 11.6 K/uL (4.8-10.8)
[2016-10-18 06:00] LABS: ABG ALLEN TEST POS; ABG MECHANICAL RATE 20; ARTERIAL BLOOD GAS MODE PRVC; ARTERIAL BLOOD HGB O2 SAT 95.3 % (95.0-98.0); ATERIAL BLOOD GAS PEEP 5; CARBOXYHEMOGLOBIN 1.5 % (0.5-1.5); DRAW SITE LR; HHB 1.5 % (0.0-5.0); METHEMOGLOBIN 1.6 % (0.0-3.0)
[2016-10-18 06:14] LABS: ALB/GLOB RATIO 0.9 (1.0-2.1); ALKALINE PHOSPHATASE 80 U/L (38-126); ALT/SGPT 56 U/L (21-72); AST/SGOT 42 U/L (17-59); BILIRUBIN,TOTAL < 0.1 mg/dL (0.2-1.3); BLOOD UREA NITROGEN 20 mg/dL (9-20); CALCIUM 8.1 mg/dl (8.6-10.4); CARBON DIOXIDE 25 mmol/L (22-30); CHLORIDE 108 mmol/L (98-107); GFR AFRICAN-AMERICAN > 60; GLUCOSE,RANDOM 163 mg/dL (75-110); MAGNESIUM 1.7 mg/dL (1.6-2.3); PHOSPHOROUS 1.9 mg/dL (2.5-4.5); POTASSIUM 3.6 mmol/L (3.6-5.2); SODIUM 141 mmol/L (132-148); TOTAL PROTEIN 4.9 g/dL (6.3-8.3)
[2016-10-18 09:15] LABS: NEUTROPHIL 82 % (50-75); TOTAL CELLS COUNTED 100
[2016-10-18 09:16] LABS: LARGE PLATELETS PRESENT
--- NOTE | 2016-10-18 09:23 | RAD ---
HISTORY: intubated COMPARISON: Portable chest 10/18/2016. FINDINGS: The endotracheal and nasogastric tubes are unchanged in position. LUNGS: A mild decrease and mid pulmonary infiltrates is identify delete bilaterally with increased opacity at the right base suspicious for atelectasis. Retrocardiac left base is also somewhat opacified indicating the same. Underlying extensive chronic interstitial pulmonary changes again seen. Biapical pleural thickening again evident. PLEURA: Trace right pleural effusion is evident. None is seen the left. No pneumothorax. CARDIOVASCULAR: Cardiac silhouette appears normal once again. No pulmonary vascular congestion appreciable. OSSEOUS STRUCTURES: No significant abnormalities. VISUALIZED UPPER ABDOMEN: Normal. OTHER FINDINGS: None. IMPRESSION: Mild improvement in the mid pulmonary infiltrates bilaterally, again seen greater the left and right sides. Underlying chronic extra pulmonary disease again appreciated previously. Bibasilar atelectasis may be increasing with limited infiltrates difficult to exclude here.
[2016-10-18 09:24] LABS: PLATELET CLUMPS PRESENT
[2016-10-18] MEDS: Divalproex 125 mg Sprinkle Capsule PO SCH ×2 (09:24→18:34)
[2016-10-18] MEDS: Potassium & Sodium Phosphate PO SCH ×2 (11:30→18:35)
--- NOTE | 2016-10-18 13:07 | CP.PCM.PN ---
Subjective - Date & Time of Evaluation Date of Evaluation: 10/18/16 Time of Evaluation: 12:54 - Subjective Subjective: Patient evaluated this morning, d/w nursing staff, remains unresponsive, off sedation, no seizure activity. Meds/consultants eval/events/investigations reviewed. Objective - Vital Signs/Intake and Output Vital Signs (last 24 hours): Temp Pulse Resp BP Pulse Ox 97.9 F 78 23 112/56 L 96 10/18/16 12:00 10/18/16 12:00 10/18/16 12:00 10/18/16 11:48 10/18/16 12:00 Intake and Output: 10/18/16 10/18/16 06:59 18:59 Intake Total 1784 1280 Output Total 696 200 Balance 1088 1080 - Medications Medications: Current Medications Acetaminophen (Tylenol 325mg Tab) 650 mg PO Q6 PRN PRN Reason: Pain, moderate (4-7) Last Admin: 10/13/16 09:44 Dose: 650 mg Apixaban (Eliquis) 2.5 mg PO BID [facility] Last Admin: 10/18/16 09:23 Dose: 2.5 mg Aspirin (Aspirin Chewable) 81 mg PO DAILY [facility] Last Admin: 10/18/16 09:23 Dose: 81 mg Divalproex Sodium (Depakote Sprinkles) 125 mg PO BID [facility] Last Admin: 10/18/16 09:24 Dose: 125 mg Piperacillin Sod/Tazobactam (Sod 3.375 gm/ Sodium Chloride) 100 mls @ 200 mls/ hr IVPB Q6H [facility] Last Admin: 10/18/16 09:24 Dose: 200 mls/hr Vancomycin HCl 750 mg/ Sodium (Chloride) 250 mls @ 166.6 mls/hr IVPB Q12H [facility] Last Admin: 10/18/16 09:24 Dose: 166.6 mls/hr Levothyroxine Sodium (Synthroid) 37.5 mcg PO DAILY@0630 [facility] Last Admin: 10/18/16 05:33 Dose: 37.5 mcg Midazolam HCl (Versed Inj) 1 mg IVP Q1H PRN PRN Reason: Seizure activity Last Admin: 10/15/16 11:51 Dose: 1 mg Pantoprazole Sodium (Protonix Susp) 40 mg GT DAILY [facility] Potassium Phos/Sodium Phos (Neutra-Phos) 1 pkt PO BID [facility] Stop: 10/19/16 18:01 Last Admin: 10/18/16 11:30 Dose: 1 pkt Rosuvastatin Calcium (Crestor) 5 mg PO HS [facility] Last Admin: 10/17/16 21:13 Dose: 5 mg Tamsulosin HCl (Flomax) 0.4 mg PO DAILY [facility] Last Admin: 10/18/16 09:24 Dose: 0.4 mg - Labs Labs: 10/18/16 05:45 10/18/16 05:45 - Additional Findings Additional findings: * VS stable not on pressors * Vent 40/450/15, breathing over vent * HEENT no corneal reflex * CVS Regular, no gallop rub * Chest Transmitted sound from vent * PA soft, nt * Ext 1+ edema, b/l * [employer] unresponsive to sternal rub, no spontaneous movements, slight gag reflex present Assessment and Plan - Assessment and Plan (Free Text) Assessment: S/p cardiac arrest, h/o nodular lung disease b/l, systolic and diastolic dysfunction heart failure, lbbb, dm, cerebral atrophy, weakness, was found unresponsive ROSC after 20 mins of ACLS protocol, s/p therapeutic hypothermia, remains completely unresponsive. * Severe anoxic damage, discussed with neurology prognosis poor, attempts prolonging life will be futile. * Continues to be on vent due to above * Needs guardianship, ethics committee consulted, supportive care mean while. * RUL aspiration pna on empiric abx * DM stable * GI and dvt prophylaxis * See orders for detail
--- NOTE | 2016-10-18 14:10 | CP.PCM.PN ---
Subjective - Date & Time of Evaluation Date of Evaluation: 10/18/16 Time of Evaluation: 11:20 - Subjective Subjective: clinically same Objective - Vital Signs/Intake and Output Vital Signs (last 24 hours): Temp Pulse Resp BP Pulse Ox 97.9 F 77 21 104/53 L 100 10/18/16 12:00 10/18/16 13:30 10/18/16 13:30 10/18/16 13:18 10/18/16 13:30 Intake and Output: 10/18/16 10/18/16 06:59 18:59 Intake Total 1784 1410 Output Total 696 235 Balance 1088 1175 - Medications Medications: Current Medications Acetaminophen (Tylenol 325mg Tab) 650 mg PO Q6 PRN PRN Reason: Pain, moderate (4-7) Last Admin: 10/13/16 09:44 Dose: 650 mg Apixaban (Eliquis) 2.5 mg PO BID [facility] Last Admin: 10/18/16 09:23 Dose: 2.5 mg Aspirin (Aspirin Chewable) 81 mg PO DAILY [facility] Last Admin: 10/18/16 09:23 Dose: 81 mg Divalproex Sodium (Depakote Sprinkles) 125 mg PO BID [facility] Last Admin: 10/18/16 09:24 Dose: 125 mg Piperacillin Sod/Tazobactam (Sod 3.375 gm/ Sodium Chloride) 100 mls @ 200 mls/ hr IVPB Q6H [facility] Last Admin: 10/18/16 09:24 Dose: 200 mls/hr Vancomycin HCl 750 mg/ Sodium (Chloride) 250 mls @ 166.6 mls/hr IVPB Q12H [facility] Last Admin: 10/18/16 09:24 Dose: 166.6 mls/hr Levothyroxine Sodium (Synthroid) 37.5 mcg PO DAILY@0630 [facility] Last Admin: 10/18/16 05:33 Dose: 37.5 mcg Midazolam HCl (Versed Inj) 1 mg IVP Q1H PRN PRN Reason: Seizure activity Last Admin: 10/15/16 11:51 Dose: 1 mg Pantoprazole Sodium (Protonix Susp) 40 mg GT DAILY [facility] Potassium Phos/Sodium Phos (Neutra-Phos) 1 pkt PO BID [facility] Stop: 10/19/16 18:01 Last Admin: 10/18/16 11:30 Dose: 1 pkt Rosuvastatin Calcium (Crestor) 5 mg PO HS [facility] Last Admin: 10/17/16 21:13 Dose: 5 mg Tamsulosin HCl (Flomax) 0.4 mg PO DAILY [facility] Last Admin: 10/18/16 09:24 Dose: 0.4 mg - Labs Labs: 10/18/16 05:45 10/18/16 05:45 - Constitutional Appears: Well - Head Exam Head Exam: ATRAUMATIC, NORMAL INSPECTION, NORMOCEPHALIC - Eye Exam Eye Exam: EOMI, Normal appearance, PERRL - ENT Exam ENT Exam: Mucous Membranes Moist, Normal Exam - Neck Exam Neck Exam: Full ROM, Normal Inspection. absent: Lymphadenopathy - Respiratory Exam Respiratory Exam: Decreased Breath Sounds - Cardiovascular Exam Cardiovascular Exam: REGULAR RHYTHM, +S1, +S2. absent: Murmur - GI/Abdominal Exam GI & Abdominal Exam: Diminished Bowel Sounds - Rectal Exam Rectal Exam: Deferred Assessment and Plan (1) Abnormal CXR (chest x-ray) Status: Acute (2) COPD (chronic obstructive pulmonary disease) Status: Acute (3) COPD exacerbation Status: Acute (4) Cardiac disease Status: Acute (5) Depression Status: Acute (6) Diabetes Status: Acute
[2016-10-18] MEDS: Midazolam 2 MG/2 ML VIAL IVP PRN (22:42)
[2016-10-19] MEDS: Acetaminophen 650mg/20.3ml solution UD PO PRN ×2 (04:39→21:14)
[2016-10-19] MEDS: Piperacillin/Tazobact 3.375 GM in Sodium Chloride 100 ML IVPB SCH ×4 (04:39→22:48)
[2016-10-19] MEDS: Levothyroxine 75 MCG TAB PO SCH (05:41)
[2016-10-19 06:12] LABS: ABG MECHANICAL RATE 15; ARTERIAL BLOOD GAS MODE PRVC; ARTERIAL BLOOD HGB O2 SAT 95.5 % (95.0-98.0); ATERIAL BLOOD GAS PEEP 5; CARBOXYHEMOGLOBIN 1.6 % (0.5-1.5); DRAW SITE R BRACH; HHB 1.7 % (0.0-5.0); METHEMOGLOBIN 1.1 % (0.0-3.0)
[2016-10-19 06:16] LABS: BASO % 0.3 % (0.0-2.0); EOS # 0.1 K/uL (0.0-0.7); EOS % 0.4 % (0.0-4.0); HEMATOCRIT 24.8 % (35.0-51.0); LYMPH % 7.2 % (20.0-40.0); MEAN CELL VOLUME 85.4 fL (80.0-94.0); MEAN CORPUSCULAR HEMOGLOBIN 27.2 pg (27.0-31.0); MEAN CORPUSCULAR HGB CONC 31.8 g/dL (33.0-37.0); MEAN PLATELET VOLUME 8.3 fL (7.2-11.7); MONO # 0.5 K/uL (0.0-0.8); MONO % 3.7 % (0.0-10.0); PLATELET COUNT 237 K/uL (130-400); RED CELL DISTRIBUTION WIDTH 17.4 % (11.5-14.5); WHITE BLOOD COUNT 13.6 K/uL (4.8-10.8)
[2016-10-19 06:48] LABS: ALB/GLOB RATIO 0.7 (1.0-2.1); ALKALINE PHOSPHATASE 76 U/L (38-126); ALT/SGPT 48 U/L (21-72); AST/SGOT 46 U/L (17-59); BILIRUBIN,TOTAL 0.3 mg/dL (0.2-1.3); BLOOD UREA NITROGEN 20 mg/dL (9-20); CALCIUM 8.1 mg/dl (8.6-10.4); CARBON DIOXIDE 26 mmol/L (22-30); CHLORIDE 109 mmol/L (98-107); GFR AFRICAN-AMERICAN > 60; GLUCOSE,RANDOM 193 mg/dL (75-110); MAGNESIUM 1.6 mg/dL (1.6-2.3); PHOSPHOROUS 2.5 mg/dL (2.5-4.5); POTASSIUM 3.7 mmol/L (3.6-5.2); SODIUM 144 mmol/L (132-148); TOTAL PROTEIN 5.3 g/dL (6.3-8.3)
--- NOTE | 2016-10-19 07:58 | RAD ---
PROCEDURE: CHEST RADIOGRAPH, 1 VIEW HISTORY: intubated patient COMPARISON: Portable chest 10/18/2016. FINDINGS: Endotracheal and nasogastric tubes are unchanged in position. Telemetry wires obscure right base. LUNGS: Persistent atelectasis or infiltrate remains in the right base with superior right lung zone infiltrate diminishing and mid left pulmonary infiltrate not simply changed. Diffuse increased interstitial markings persist from chronic interstitial disease. PLEURA: Minimal bilateral pleural effusions are not excluded in the interval. No pneumothorax. CARDIOVASCULAR: Cardiac silhouette is stable. No definite pulmonary vascular derangement identified at this time. OSSEOUS STRUCTURES: No significant abnormalities. VISUALIZED UPPER ABDOMEN: Normal. OTHER FINDINGS: None. IMPRESSION: Mild ill interval improvement in alveolar infiltrates bilaterally overlying diffuse chronic interstitial pulmonary disease. Trace bilateral pleural effusions are not excluded bilaterally in the interval.
[2016-10-19 08:26] LABS: NEUTROPHIL 85 % (50-75); TOTAL CELLS COUNTED 100
[2016-10-19 08:31] LABS: LARGE PLATELETS PRESENT
[2016-10-19] MEDS: Potassium & Sodium Phosphate PO SCH ×2 (10:40→19:09)
[2016-10-19] MEDS: Divalproex 125 mg Sprinkle Capsule PO SCH ×2 (10:40→19:03)
[2016-10-19] MEDS: Pantoprazole 40 mg Susp UD GT SCH (10:40)
--- NOTE | 2016-10-19 18:30 | CP.PCM.PN ---
Subjective - Date & Time of Evaluation Date of Evaluation: 10/19/16 Time of Evaluation: 12:20 - Subjective Subjective: clinically same Objective - Vital Signs/Intake and Output Vital Signs (last 24 hours): Temp Pulse Resp BP Pulse Ox 97.6 F 97 H 21 100/68 96 10/19/16 09:00 10/19/16 15:30 10/19/16 15:30 10/19/16 14:59 10/19/16 15:30 Intake and Output: 10/19/16 10/19/16 06:59 18:59 Intake Total 460 620 Output Total 790 420 Balance -330 200 - Medications Medications: Current Medications Acetaminophen (Tylenol 650mg/20.3ml Solution Ud) 650 mg PO Q6 PRN PRN Reason: Pain, moderate (4-7) Last Admin: 10/19/16 04:39 Dose: 650 mg Apixaban (Eliquis) 2.5 mg PO BID [facility] Last Admin: 10/19/16 10:40 Dose: 2.5 mg Aspirin (Aspirin Chewable) 81 mg PO DAILY [facility] Last Admin: 10/19/16 10:40 Dose: 81 mg Divalproex Sodium (Depakote Sprinkles) 125 mg PO BID [facility] Last Admin: 10/19/16 10:40 Dose: 125 mg Piperacillin Sod/Tazobactam (Sod 3.375 gm/ Sodium Chloride) 100 mls @ 200 mls/ hr IVPB Q6H [facility] Last Admin: 10/19/16 10:39 Dose: 200 mls/hr Vancomycin HCl 750 mg/ Sodium (Chloride) 250 mls @ 166.6 mls/hr IVPB Q12H [facility] Last Admin: 10/19/16 10:40 Dose: 166.6 mls/hr Levothyroxine Sodium (Synthroid) 37.5 mcg PO DAILY@0630 [facility] Last Admin: 10/19/16 05:41 Dose: 37.5 mcg Midazolam HCl (Versed Inj) 1 mg IVP Q1H PRN PRN Reason: Seizure activity Last Admin: 10/18/16 22:42 Dose: 1 mg Pantoprazole Sodium (Protonix Susp) 40 mg GT DAILY [facility] Last Admin: 10/19/16 10:40 Dose: 40 mg Rosuvastatin Calcium (Crestor) 5 mg PO HS [facility] Last Admin: 10/18/16 21:11 Dose: 5 mg Tamsulosin HCl (Flomax) 0.4 mg PO DAILY [facility] Last Admin: 10/19/16 10:40 Dose: 0.4 mg - Labs Labs: 10/19/16 06:12 10/19/16 06:12 - Constitutional Appears: Well - Head Exam Head Exam: ATRAUMATIC, NORMAL INSPECTION, NORMOCEPHALIC - Eye Exam Eye Exam: EOMI, Normal appearance, PERRL Pupil Exam: NORMAL ACCOMODATION, PERRL - ENT Exam ENT Exam: Mucous Membranes Moist, Normal Exam - Neck Exam Neck Exam: Full ROM, Normal Inspection. absent: Lymphadenopathy - Respiratory Exam Respiratory Exam: Decreased Breath Sounds - Cardiovascular Exam Cardiovascular Exam: REGULAR RHYTHM, +S1, +S2 - GI/Abdominal Exam GI & Abdominal Exam: Soft, Diminished Bowel Sounds - Rectal Exam Rectal Exam: Deferred Assessment and Plan (1) Abnormal CXR (chest x-ray) Status: Acute (2) COPD (chronic obstructive pulmonary disease) Status: Acute (3) COPD exacerbation Status: Acute (4) Cardiac disease Status: Acute (5) Depression Status: Acute (6) Diabetes Status: Acute
--- NOTE | 2016-10-19 18:42 | CP.CCUPN ---
CCU Subjective - Physician Review Events Since Last Encounter (Free Text): 10/19/16 18:40 Patient is unresponsive. Episodes of tremor noted. Vital signs otherwise stable. Critical Care Time Spent (in minutes): 45 CCU Objective - Vital Signs / Intake & Output Vital Signs (Last 4 hours): Vital Signs Pulse Resp BP Pulse Ox 10/19/16 18:00 104 H 21 96 10/19/16 17:58 131 H 29 H 151/124 H 97 10/19/16 17:30 105 H 22 96 10/19/16 17:00 100 H 19 96 10/19/16 16:57 101 H 21 103/51 L 98 10/19/16 16:30 94 H 21 95 10/19/16 16:00 101 H 22 96 10/19/16 15:56 98 H 20 114/69 99 10/19/16 15:30 97 H 21 96 10/19/16 15:00 92 H 18 98 10/19/16 14:59 81 22 100/68 98 Intake and Output (Last 8hrs): Intake & Output 10/19/16 10/19/16 10/19/16 06:59 14:59 22:59 Intake Total 270 560 120 Output Total 410 330 180 Balance -140 230 -60 Weight 129 lb 6.581 oz Intake: Intake, IV Amount 350 Left Foot 350 Tube Feeding 270 210 120 Output: Urine 410 330 180 Urethral (Barrett) 330 180 Urine, Voided 410 Other: # Bowel Movements 0 0 - Physical Exam Narrative Physical Exam (Free Text): 10/19/16 18:41 Unconscious, poorly responding Head: Positive for: Atraumatic, Normocephalic Pupils: Positive for: Non-Reactive, Pinpoint Ears: Positive for: Normal Neck: Negative for: JVD Respiratory/Chest: Positive for: Clear to Auscultation. Negative for: Wheezes, Rales Cardiovascular: Positive for: Regular Rate and Rhythm. Negative for: Murmurs Abdomen: Positive for: Normal Bowel Sounds Lower Extremity: Negative for: Edema Neurological: Positive for: Other (comatose) Psychiatric: Negative for: Alert - Medications Active Medications: Active Medications Generic Name Dose Route Start Last Admin Trade Name Freq PRN Reason Stop Dose Admin Acetaminophen 650 mg 10/18/16 20:15 10/19/16 04:39 Tylenol 650mg/20.3ml Solution Ud PO 650 mg Q6 PRN Administration Pain, moderate (4-7) Apixaban 2.5 mg 09/23/16 10:00 10/19/16 10:40 Eliquis PO 2.5 mg BID [facility] Administration Aspirin 81 mg 09/16/16 10:30 10/19/16 10:40 Aspirin Chewable PO 81 mg DAILY [facility] Administration Divalproex Sodium 125 mg 09/16/16 10:30 10/19/16 10:40 Depakote Sprinkles PO 125 mg BID [facility] Administration Piperacillin Sod/Tazobactam 100 mls @ 200 mls/hr 10/15/16 10:00 10/19/16 10: 39 Sod 3.375 gm/ Sodium Chloride IVPB 200 mls/hr Q6H [facility] Administration Vancomycin HCl 750 mg/ Sodium 250 mls @ 166.6 mls/hr 10/15/16 10:00 10/19/16 10:40 Chloride IVPB 166.6 mls/hr Q12H [facility] Administration Levothyroxine Sodium 37.5 mcg 09/30/16 06:30 10/19/16 05:41 Synthroid PO 37.5 mcg DAILY@0630 [facility] Administration Midazolam HCl 1 mg 10/15/16 08:14 10/18/16 22:42 Versed Inj IVP 1 mg Q1H PRN Administration Seizure activity Pantoprazole Sodium 40 mg 10/19/16 10:00 10/19/16 10:40 Protonix Susp GT 40 mg DAILY [facility] Administration Rosuvastatin Calcium 5 mg 09/29/16 22:00 10/18/16 21:11 Crestor PO 5 mg HS [facility] Administration Tamsulosin HCl 0.4 mg 09/16/16 10:30 10/19/16 10:40 Flomax PO 0.4 mg DAILY [facility] Administration - Patient Studies Lab Studies: Microbiology Studies 10/15/16 11:00 Blood Culture - Preliminary Blood NO GROWTH AFTER 4 DAYS 10/15/16 10:45 Blood Culture - Preliminary Blood NO GROWTH AFTER 4 DAYS Lab Studies 10/19/16 10/19/16 10/19/16 Range/Units 17:45 11:44 06:12 WBC (4.8-10.8) K/uL RBC (4.40-5.90) Mil/uL Hgb (12.0-18.0) g/dL Hct (35.0-51.0) % MCV (80.0-94.0) fL MCH (27.0-31.0) pg MCHC (33.0-37.0) g/dL RDW (11.5-14.5) % Plt Count (130-400) K/uL MPV (7.2-11.7) fL Neut % (Auto) (50.0-75.0) % Lymph % (Auto) (20.0-40.0) % [place] % (Auto) (0.0-10.0) % Eos % (Auto) (0.0-4.0) % Baso % (Auto) (0.0-2.0) % Neut # (1.8-7.0) K/uL Lymph # (1.0-4.3) K/uL [place] # (0.0-0.8) K/uL Eos # (0.0-0.7) K/uL Baso # (0.0-0.2) K/uL Neutrophils % (Manual) (50-75) % Band Neutrophils % (0-2) % Lymphocytes % (Manual) (20-40) % Monocytes % (Manual) (0-10) % Toxic Granulation Platelet Estimate (NORMAL) Large Platelets Polychromasia Hypochromasia (manual) Poikilocytosis (manual Anisocytosis (manual) Ovalocytes Puncture Site pCO2 (35-45) mm/Hg pO2 (80-100) mm/Hg HCO3 (21-28) mmol/L ABG pH (7.35-7.45) ABG Total CO2 (22-28) mmol/L ABG O2 Saturation (95-98) % ABG Base Excess (-2.0-3.0) mmol/L ABG Hemoglobin (11.7-17.4) g/dL ABG Carboxyhemoglobin (0.5-1.5) % POC ABG HHb (Measured) (0.0-5.0) % ABG Methemoglobin (0.0-3.0) % Ravi Test A-a O2 Difference mm/Hg Respiratory Index Hgb O2 Saturation (95.0-98.0) % Vent Mode Mechanical Rate FiO2 % Tidal Volume PEEP Sodium 144 (132-148) mmol/L Potassium 3.7 (3.6-5.2) mmol/L Chloride 109 H (98-107) mmol/L Carbon Dioxide 26 (22-30) mmol/L Anion Gap 13 (10-20) BUN 20 (9-20) mg/dL Creatinine 0.6 L (0.8-1.5) MG/DL Est GFR ( Amer) > 60 Est GFR (Non-Af Amer) > 60 POC Glucose (mg/dL) 151 H 161 H (65-110) mg/dL Random Glucose 193 H (75-110) mg/dL Calcium 8.1 L (8.6-10.4) mg/dl Phosphorus 2.5 (2.5-4.5) mg/dL Magnesium 1.6 (1.6-2.3) mg/dL Total Bilirubin 0.3 (0.2-1.3) mg/dL AST 46 (17-59) U/L ALT 48 (21-72) U/L Alkaline Phosphatase 76 (38-126) U/L Total Protein 5.3 L (6.3-8.3) g/dL Albumin 2.2 L (3.5-5.0) g/dL Globulin 3.1 (2.2-3.9) gm/dL Albumin/Globulin Ratio 0.7 L (1.0-2.1) 10/19/16 10/19/16 10/19/16 Range/Units 06:12 06:00 05:35 WBC 13.6 H (4.8-10.8) K/uL RBC 2.90 L (4.40-5.90) Mil/uL Hgb 7.9 L (12.0-18.0) g/dL Hct 24.8 L (35.0-51.0) % MCV 85.4 (80.0-94.0) fL MCH 27.2 (27.0-31.0) pg MCHC 31.8 L (33.0-37.0) g/dL RDW 17.4 H (11.5-14.5) % Plt Count 237 (130-400) K/uL MPV 8.3 (7.2-11.7) fL Neut % (Auto) 88.4 H (50.0-75.0) % Lymph % (Auto) 7.2 L (20.0-40.0) % [place] % (Auto) 3.7 (0.0-10.0) % Eos % (Auto) 0.4 (0.0-4.0) % Baso % (Auto) 0.3 (0.0-2.0) % Neut # 12.0 H (1.8-7.0) K/uL Lymph # 1.0 (1.0-4.3) K/uL [place] # 0.5 (0.0-0.8) K/uL Eos # 0.1 (0.0-0.7) K/uL Baso # 0.0 (0.0-0.2) K/uL Neutrophils % (Manual) 85 H (50-75) % Band Neutrophils % 5 H (0-2) % Lymphocytes % (Manual) 7 L (20-40) % Monocytes % (Manual) 3 (0-10) % Toxic Granulation Present Platelet Estimate Normal (NORMAL) Large Platelets Present Polychromasia Slight Hypochromasia (manual) Slight Poikilocytosis (manual Slight Anisocytosis (manual) Slight Ovalocytes Slight Puncture Site R brach pCO2 44 (35-45) mm/Hg pO2 92 (80-100) mm/Hg HCO3 25.5 (21-28) mmol/L ABG pH 7.38 (7.35-7.45) ABG Total CO2 27.4 (22-28) mmol/L ABG O2 Saturation 98.3 H (95-98) % ABG Base Excess 0.7 (-2.0-3.0) mmol/L ABG Hemoglobin 9.9 L (11.7-17.4) g/dL ABG Carboxyhemoglobin 1.6 H (0.5-1.5) % POC ABG HHb (Measured) 1.7 (0.0-5.0) % ABG Methemoglobin 1.1 (0.0-3.0) % Ravi Test Na A-a O2 Difference 138.0 mm/Hg Respiratory Index 1.5 Hgb O2 Saturation 95.5 (95.0-98.0) % Vent Mode Prvc Mechanical Rate 15 FiO2 40.0 % Tidal Volume 450 PEEP 5 Sodium (132-148) mmol/L Potassium (3.6-5.2) mmol/L Chloride (98-107) mmol/L Carbon Dioxide (22-30) mmol/L Anion Gap (10-20) BUN (9-20) mg/dL Creatinine (0.8-1.5) MG/DL Est GFR ( Amer) Est GFR (Non-Af Amer) POC Glucose (mg/dL) 205 H (65-110) mg/dL Random Glucose (75-110) mg/dL Calcium (8.6-10.4) mg/dl Phosphorus (2.5-4.5) mg/dL Magnesium (1.6-2.3) mg/dL Total Bilirubin (0.2-1.3) mg/dL AST (17-59) U/L ALT (21-72) U/L Alkaline Phosphatase (38-126) U/L Total Protein (6.3-8.3) g/dL Albumin (3.5-5.0) g/dL Globulin (2.2-3.9) gm/dL Albumin/Globulin Ratio (1.0-2.1) 10/18/16 Range/Units 23:52 WBC (4.8-10.8) K/uL RBC (4.40-5.90) Mil/uL Hgb (12.0-18.0) g/dL Hct (35.0-51.0) % MCV (80.0-94.0) fL MCH (27.0-31.0) pg MCHC (33.0-37.0) g/dL RDW (11.5-14.5) % Plt Count (130-400) K/uL MPV (7.2-11.7) fL Neut % (Auto) (50.0-75.0) % Lymph % (Auto) (20.0-40.0) % [place] % (Auto) (0.0-10.0) % Eos % (Auto) (0.0-4.0) % Baso % (Auto) (0.0-2.0) % Neut # (1.8-7.0) K/uL Lymph # (1.0-4.3) K/uL [place] # (0.0-0.8) K/uL Eos # (0.0-0.7) K/uL Baso # (0.0-0.2) K/uL Neutrophils % (Manual) (50-75) % Band Neutrophils % (0-2) % Lymphocytes % (Manual) (20-40) % Monocytes % (Manual) (0-10) % Toxic Granulation Platelet Estimate (NORMAL) Large Platelets Polychromasia Hypochromasia (manual) Poikilocytosis (manual Anisocytosis (manual) Ovalocytes Puncture Site pCO2 (35-45) mm/Hg pO2 (80-100) mm/Hg HCO3 (21-28) mmol/L ABG pH (7.35-7.45) ABG Total CO2 (22-28) mmol/L ABG O2 Saturation (95-98) % ABG Base Excess (-2.0-3.0) mmol/L ABG Hemoglobin (11.7-17.4) g/dL ABG Carboxyhemoglobin (0.5-1.5) % POC ABG HHb (Measured) (0.0-5.0) % ABG Methemoglobin (0.0-3.0) % Ravi Test A-a O2 Difference mm/Hg Respiratory Index Hgb O2 Saturation (95.0-98.0) % Vent Mode Mechanical Rate FiO2 % Tidal Volume PEEP Sodium (132-148) mmol/L Potassium (3.6-5.2) mmol/L Chloride (98-107) mmol/L Carbon Dioxide (22-30) mmol/L Anion Gap (10-20) BUN (9-20) mg/dL Creatinine (0.8-1.5) MG/DL Est GFR ( Amer) Est GFR (Non-Af Amer) POC Glucose (mg/dL) 180 H (65-110) mg/dL Random Glucose (75-110) mg/dL Calcium (8.6-10.4) mg/dl Phosphorus (2.5-4.5) mg/dL Magnesium (1.6-2.3) mg/dL Total Bilirubin (0.2-1.3) mg/dL AST (17-59) U/L ALT (21-72) U/L Alkaline Phosphatase (38-126) U/L Total Protein (6.3-8.3) g/dL Albumin (3.5-5.0) g/dL Globulin (2.2-3.9) gm/dL Albumin/Globulin Ratio (1.0-2.1) Laboratory Results - last 24 hr 10/18/16 10/19/16 10/19/16 23:52 05:35 06:00 WBC RBC Hgb Hct MCV MCH MCHC RDW Plt Count MPV Neut % (Auto) Lymph % (Auto) [place] % (Auto) Eos % (Auto) Baso % (Auto) Neut # Lymph # [place] # Eos # Baso # Neutrophils % (Manual) Band Neutrophils % Lymphocytes % (Manual) Monocytes % (Manual) Toxic Granulation Platelet Estimate Large Platelets Polychromasia Hypochromasia (manual) Poikilocytosis (manual Anisocytosis (manual) Ovalocytes Puncture Site R brach pCO2 44 pO2 92 HCO3 25.5 ABG pH 7.38 ABG Total CO2 27.4 ABG O2 Saturation 98.3 H ABG Base Excess 0.7 ABG Hemoglobin 9.9 L ABG Carboxyhemoglobin 1.6 H POC ABG HHb (Measured) 1.7 ABG Methemoglobin 1.1 Ravi Test Na A-a O2 Difference 138.0 Respiratory Index 1.5 Hgb O2 Saturation 95.5 Vent Mode Prvc Mechanical Rate 15 FiO2 40.0 Tidal Volume 450 PEEP 5 Sodium Potassium Chloride Carbon Dioxide Anion Gap BUN Creatinine Est GFR ( Amer) Est GFR (Non-Af Amer) POC Glucose (mg/dL) 180 H 205 H Random Glucose Calcium Phosphorus Magnesium Total Bilirubin AST ALT Alkaline Phosphatase Total Protein Albumin Globulin Albumin/Globulin Ratio 10/19/16 10/19/16 10/19/16 06:12 06:12 11:44 WBC 13.6 H RBC 2.90 L Hgb 7.9 L Hct 24.8 L MCV 85.4 MCH 27.2 MCHC 31.8 L RDW 17.4 H Plt Count 237 MPV 8.3 Neut % (Auto) 88.4 H Lymph % (Auto) 7.2 L [place] % (Auto) 3.7 Eos % (Auto) 0.4 Baso % (Auto) 0.3 Neut # 12.0 H Lymph # 1.0 [place] # 0.5 Eos # 0.1 Baso # 0.0 Neutrophils % (Manual) 85 H Band Neutrophils % 5 H Lymphocytes % (Manual) 7 L Monocytes % (Manual) 3 Toxic Granulation Present Platelet Estimate Normal Large Platelets Present Polychromasia Slight Hypochromasia (manual) Slight Poikilocytosis (manual Slight Anisocytosis (manual) Slight Ovalocytes Slight Puncture Site pCO2 pO2 HCO3 ABG pH ABG Total CO2 ABG O2 Saturation ABG Base Excess ABG Hemoglobin ABG Carboxyhemoglobin POC ABG HHb (Measured) ABG Methemoglobin Ravi Test A-a O2 Difference Respiratory Index Hgb O2 Saturation Vent Mode Mechanical Rate FiO2 Tidal Volume PEEP Sodium 144 Potassium 3.7 Chloride 109 H Carbon Dioxide 26 Anion Gap 13 BUN 20 Creatinine 0.6 L Est GFR ( Amer) > 60 Est GFR (Non-Af Amer) > 60 POC Glucose (mg/dL) 161 H Random Glucose 193 H Calcium 8.1 L Phosphorus 2.5 Magnesium 1.6 Total Bilirubin 0.3 AST 46 ALT 48 Alkaline Phosphatase 76 Total Protein 5.3 L Albumin 2.2 L Globulin 3.1 Albumin/Globulin Ratio 0.7 L 10/19/16 17:45 WBC RBC Hgb Hct MCV MCH MCHC RDW Plt Count MPV Neut % (Auto) Lymph % (Auto) [place] % (Auto) Eos % (Auto) Baso % (Auto) Neut # Lymph # [place] # Eos # Baso # Neutrophils % (Manual) Band Neutrophils % Lymphocytes % (Manual) Monocytes % (Manual) Toxic Granulation Platelet Estimate Large Platelets Polychromasia Hypochromasia (manual) Poikilocytosis (manual Anisocytosis (manual) Ovalocytes Puncture Site pCO2 pO2 HCO3 ABG pH ABG Total CO2 ABG O2 Saturation ABG Base Excess ABG Hemoglobin ABG Carboxyhemoglobin POC ABG HHb (Measured) ABG Methemoglobin Ravi Test A-a O2 Difference Respiratory Index Hgb O2 Saturation Vent Mode Mechanical Rate FiO2 Tidal Volume PEEP Sodium Potassium Chloride Carbon Dioxide Anion Gap BUN Creatinine Est GFR ( Amer) Est GFR (Non-Af Amer) POC Glucose (mg/dL) 151 H Random Glucose Calcium Phosphorus Magnesium Total Bilirubin AST ALT Alkaline Phosphatase Total Protein Albumin Globulin Albumin/Globulin Ratio Fingerstick Blood Sugar Results: 151 Review of Systems - Review of Systems All systems: reviewed and no additional remarkable complaints except Critical Care Progress Note - Nutrition Nutrition: Nutrition Category Date Time Status NPO Diet [DIET] Diets 10/15/16 Dinner Active Assessment/Plan - Assessment and Plan (Free Text) Assessment: Patient with a cardiac arrest, anoxic encephalopathy. Will need risk management, hospice evaluation, palliative care evaluation, even possible terminal extubation given the poor prognosis
[2016-10-20] MEDS ORDERED: Sodium Chloride 0.9% 500 ML IV ONE (02:07)
[2016-10-20] MEDS: Piperacillin/Tazobact 3.375 GM in Sodium Chloride 100 ML IVPB SCH ×4 (04:50→22:00)
[2016-10-20] MEDS: Acetaminophen 650mg/20.3ml solution UD PO PRN ×3 (04:51→22:54)
[2016-10-20] MEDS: Levothyroxine 75 MCG TAB PO SCH (05:48)
[2016-10-20 06:07] LABS: ABG MECHANICAL RATE 15; ARTERIAL BLOOD GAS MODE PRVC; ARTERIAL BLOOD HGB O2 SAT 95.5 % (95.0-98.0); ATERIAL BLOOD GAS PEEP 5; CARBOXYHEMOGLOBIN 1.8 % (0.5-1.5); DRAW SITE R BRACH; HHB 1.9 % (0.0-5.0); METHEMOGLOBIN 0.8 % (0.0-3.0)
[2016-10-20 06:34] LABS: BASO % 0.2 % (0.0-2.0); EOS % 0.3 % (0.0-4.0); HEMATOCRIT 26.1 % (35.0-51.0); LYMPH # 1.4 K/uL (1.0-4.3); LYMPH % 8.1 % (20.0-40.0); MEAN CELL VOLUME 85.6 fL (80.0-94.0); MEAN CORPUSCULAR HEMOGLOBIN 27.2 pg (27.0-31.0); MEAN CORPUSCULAR HGB CONC 31.7 g/dL (33.0-37.0); MEAN PLATELET VOLUME 8.4 fL (7.2-11.7); MONO # 0.9 K/uL (0.0-0.8); PLATELET COUNT 307 K/uL (130-400); RED CELL DISTRIBUTION WIDTH 17.5 % (11.5-14.5); WHITE BLOOD COUNT 16.9 K/uL (4.8-10.8)
[2016-10-20 07:18] LABS: ALB/GLOB RATIO 0.7 (1.0-2.1); ALKALINE PHOSPHATASE 83 U/L (38-126); ALT/SGPT 42 U/L (21-72); AST/SGOT 45 U/L (17-59); BILIRUBIN,TOTAL 0.6 mg/dL (0.2-1.3); BLOOD UREA NITROGEN 21 mg/dL (9-20); CALCIUM 8.2 mg/dl (8.6-10.4); CARBON DIOXIDE 26 mmol/L (22-30); CHLORIDE 109 mmol/L (98-107); GFR AFRICAN-AMERICAN > 60; GLUCOSE,RANDOM 155 mg/dL (75-110); MAGNESIUM 1.7 mg/dL (1.6-2.3); PHOSPHOROUS 3.8 mg/dL (2.5-4.5); POTASSIUM 4.3 mmol/L (3.6-5.2); SODIUM 147 mmol/L (132-148); TOTAL PROTEIN 5.8 g/dL (6.3-8.3)
--- NOTE | 2016-10-20 07:22 | CP.CCUPN ---
<MinoAaron R - Last Filed: 10/20/16 12:23> CCU Subjective - Physician Review Subjective (Free Text): Patient seen and examined at bedside. Patient is currently unresponsive, intubated on ventilator. 10/20/16 07:21 CCU Objective - Vital Signs / Intake & Output Vital Signs (Last 4 hours): Vital Signs Temp Pulse Resp BP Pulse Ox 10/20/16 07:00 114 H 24 96 10/20/16 06:51 104 H 25 H 116/63 96 10/20/16 06:30 102 H 24 95 10/20/16 06:00 134 H 23 97 10/20/16 05:51 103 H 24 93/39 L 97 10/20/16 05:30 101 H 26 H 96 10/20/16 05:00 110 H 28 H 95 10/20/16 04:51 100.6 F H 106 H 26 H 118/99 H 100 10/20/16 04:30 106 H 26 H 95 10/20/16 04:15 110 H 27 H 91/49 L 100 10/20/16 04:00 96 H 23 98 10/20/16 03:30 168 H 21 99 Intake and Output (Last 8hrs): Intake & Output 10/19/16 10/20/16 10/20/16 22:59 06:59 14:59 Intake Total 590 870 Output Total 420 335 Balance 170 535 Weight 127 lb 13.89 oz Intake: Intake, IV Amount 350 600 Left Foot 350 600 Tube Feeding 240 270 Output: Urine 420 335 Urethral (Barrett) 420 335 Other: # Bowel Movements 0 - Physical Exam Head: Positive for: Atraumatic, Normocephalic Pupils: Positive for: Non-Reactive, Pinpoint Ears: Positive for: Normal Neck: Negative for: JVD Respiratory/Chest: Positive for: Clear to Auscultation. Negative for: Wheezes, Rales Cardiovascular: Positive for: Regular Rate and Rhythm. Negative for: Murmurs Abdomen: Positive for: Normal Bowel Sounds Lower Extremity: Negative for: Edema Neurological: Positive for: Other (comatose) Psychiatric: Negative for: Alert - Medications Active Medications: Active Medications Generic Name Dose Route Start Last Admin Trade Name Freq PRN Reason Stop Dose Admin Acetaminophen 650 mg 10/18/16 20:15 10/20/16 04:51 Tylenol 650mg/20.3ml Solution Ud PO 650 mg Q6 PRN Administration Pain, moderate (4-7) Apixaban 2.5 mg 09/23/16 10:00 10/19/16 19:03 Eliquis PO 2.5 mg BID ARTURO Administration Aspirin 81 mg 09/16/16 10:30 10/19/16 10:40 Aspirin Chewable PO 81 mg DAILY ARTURO Administration Divalproex Sodium 125 mg 09/16/16 10:30 10/19/16 19:03 Depakote Sprinkles PO 125 mg BID ARTURO Administration Piperacillin Sod/Tazobactam 100 mls @ 200 mls/hr 10/15/16 10:00 10/20/16 04: 50 Sod 3.375 gm/ Sodium Chloride IVPB 200 mls/hr Q6H ARTURO Administration Vancomycin HCl 750 mg/ Sodium 250 mls @ 166.6 mls/hr 10/15/16 10:00 10/19/16 21:14 Chloride IVPB 166.6 mls/hr Q12H ARTURO Administration Levothyroxine Sodium 37.5 mcg 09/30/16 06:30 10/20/16 05:48 Synthroid PO 37.5 mcg DAILY@0630 RATURO Administration Midazolam HCl 1 mg 10/15/16 08:14 10/18/16 22:42 Versed Inj IVP 1 mg Q1H PRN Administration Seizure activity Pantoprazole Sodium 40 mg 10/19/16 10:00 10/19/16 10:40 Protonix Susp GT 40 mg DAILY ARTURO Administration Rosuvastatin Calcium 5 mg 09/29/16 22:00 10/19/16 21:14 Crestor PO 5 mg HS ARTURO Administration Tamsulosin HCl 0.4 mg 09/16/16 10:30 10/19/16 10:40 Flomax PO 0.4 mg DAILY ARTURO Administration - Patient Studies Lab Studies: Microbiology Studies 10/15/16 11:00 Blood Culture - Preliminary Blood NO GROWTH AFTER 4 DAYS 10/15/16 10:45 Blood Culture - Preliminary Blood NO GROWTH AFTER 4 DAYS Lab Studies 10/20/16 10/20/16 10/20/16 Range/Units 07:07 06:23 05:51 WBC 16.9 H (4.8-10.8) K/uL RBC 3.05 L (4.40-5.90) Mil/uL Hgb 8.3 L (12.0-18.0) g/dL Hct 26.1 L (35.0-51.0) % MCV 85.6 (80.0-94.0) fL MCH 27.2 (27.0-31.0) pg MCHC 31.7 L (33.0-37.0) g/dL RDW 17.5 H (11.5-14.5) % Plt Count 307 (130-400) K/uL MPV 8.4 (7.2-11.7) fL Neut % (Auto) 86.4 H (50.0-75.0) % Lymph % (Auto) 8.1 L (20.0-40.0) % [place] % (Auto) 5.0 (0.0-10.0) % Eos % (Auto) 0.3 (0.0-4.0) % Baso % (Auto) 0.2 (0.0-2.0) % Neut # 14.6 H (1.8-7.0) K/uL Lymph # 1.4 (1.0-4.3) K/uL [place] # 0.9 H (0.0-0.8) K/uL Eos # 0.0 (0.0-0.7) K/uL Baso # 0.0 (0.0-0.2) K/uL Neutrophils % (Manual) (50-75) % Band Neutrophils % (0-2) % Lymphocytes % (Manual) (20-40) % Monocytes % (Manual) (0-10) % Toxic Granulation Platelet Estimate (NORMAL) Large Platelets Polychromasia Hypochromasia (manual) Poikilocytosis (manual Anisocytosis (manual) Ovalocytes Puncture Site pCO2 (35-45) mm/Hg pO2 (80-100) mm/Hg HCO3 (21-28) mmol/L ABG pH (7.35-7.45) ABG Total CO2 (22-28) mmol/L ABG O2 Saturation (95-98) % ABG Base Excess (-2.0-3.0) mmol/L ABG Hemoglobin (11.7-17.4) g/dL ABG Carboxyhemoglobin (0.5-1.5) % POC ABG HHb (Measured) (0.0-5.0) % ABG Methemoglobin (0.0-3.0) % Ravi Test A-a O2 Difference mm/Hg Respiratory Index Hgb O2 Saturation (95.0-98.0) % Vent Mode Mechanical Rate FiO2 % Tidal Volume PEEP POC Glucose (mg/dL) 202 H 173 H (65-110) mg/dL 10/20/16 10/20/16 10/19/16 Range/Units 05:06 00:16 23:58 WBC (4.8-10.8) K/uL RBC (4.40-5.90) Mil/uL Hgb (12.0-18.0) g/dL Hct (35.0-51.0) % MCV (80.0-94.0) fL MCH (27.0-31.0) pg MCHC (33.0-37.0) g/dL RDW (11.5-14.5) % Plt Count (130-400) K/uL MPV (7.2-11.7) fL Neut % (Auto) (50.0-75.0) % Lymph % (Auto) (20.0-40.0) % [place] % (Auto) (0.0-10.0) % Eos % (Auto) (0.0-4.0) % Baso % (Auto) (0.0-2.0) % Neut # (1.8-7.0) K/uL Lymph # (1.0-4.3) K/uL [place] # (0.0-0.8) K/uL Eos # (0.0-0.7) K/uL Baso # (0.0-0.2) K/uL Neutrophils % (Manual) (50-75) % Band Neutrophils % (0-2) % Lymphocytes % (Manual) (20-40) % Monocytes % (Manual) (0-10) % Toxic Granulation Platelet Estimate (NORMAL) Large Platelets Polychromasia Hypochromasia (manual) Poikilocytosis (manual Anisocytosis (manual) Ovalocytes Puncture Site R brach pCO2 48 H (35-45) mm/Hg pO2 75 L (80-100) mm/Hg HCO3 27.7 (21-28) mmol/L ABG pH 7.39 (7.35-7.45) ABG Total CO2 30.6 H (22-28) mmol/L ABG O2 Saturation 98.0 (95-98) % ABG Base Excess 3.6 H (-2.0-3.0) mmol/L ABG Hemoglobin 8.9 L (11.7-17.4) g/dL ABG Carboxyhemoglobin 1.8 H (0.5-1.5) % POC ABG HHb (Measured) 1.9 (0.0-5.0) % ABG Methemoglobin 0.8 (0.0-3.0) % Ravi Test Na A-a O2 Difference 150.0 mm/Hg Respiratory Index 2.0 Hgb O2 Saturation 95.5 (95.0-98.0) % Vent Mode Prvc Mechanical Rate 15 FiO2 40.0 % Tidal Volume 450 PEEP 5 POC Glucose (mg/dL) 167 H 61 L (65-110) mg/dL 10/19/16 10/19/16 10/19/16 Range/Units 17:45 11:44 06:12 WBC (4.8-10.8) K/uL RBC (4.40-5.90) Mil/uL Hgb (12.0-18.0) g/dL Hct (35.0-51.0) % MCV (80.0-94.0) fL MCH (27.0-31.0) pg MCHC (33.0-37.0) g/dL RDW (11.5-14.5) % Plt Count (130-400) K/uL MPV (7.2-11.7) fL Neut % (Auto) (50.0-75.0) % Lymph % (Auto) (20.0-40.0) % [place] % (Auto) (0.0-10.0) % Eos % (Auto) (0.0-4.0) % Baso % (Auto) (0.0-2.0) % Neut # (1.8-7.0) K/uL Lymph # (1.0-4.3) K/uL [place] # (0.0-0.8) K/uL Eos # (0.0-0.7) K/uL Baso # (0.0-0.2) K/uL Neutrophils % (Manual) 85 H (50-75) % Band Neutrophils % 5 H (0-2) % Lymphocytes % (Manual) 7 L (20-40) % Monocytes % (Manual) 3 (0-10) % Toxic Granulation Present Platelet Estimate Normal (NORMAL) Large Platelets Present Polychromasia Slight Hypochromasia (manual) Slight Poikilocytosis (manual Slight Anisocytosis (manual) Slight Ovalocytes Slight Puncture Site pCO2 (35-45) mm/Hg pO2 (80-100) mm/Hg HCO3 (21-28) mmol/L ABG pH (7.35-7.45) ABG Total CO2 (22-28) mmol/L ABG O2 Saturation (95-98) % ABG Base Excess (-2.0-3.0) mmol/L ABG Hemoglobin (11.7-17.4) g/dL ABG Carboxyhemoglobin (0.5-1.5) % POC ABG HHb (Measured) (0.0-5.0) % ABG Methemoglobin (0.0-3.0) % Ravi Test A-a O2 Difference mm/Hg Respiratory Index Hgb O2 Saturation (95.0-98.0) % Vent Mode Mechanical Rate FiO2 % Tidal Volume PEEP POC Glucose (mg/dL) 151 H 161 H (65-110) mg/dL Laboratory Results - last 24 hr 10/19/16 10/19/16 10/19/16 06:12 11:44 17:45 WBC RBC Hgb Hct MCV MCH MCHC RDW Plt Count MPV Neut % (Auto) Lymph % (Auto) [place] % (Auto) Eos % (Auto) Baso % (Auto) Neut # Lymph # [place] # Eos # Baso # Neutrophils % (Manual) 85 H Band Neutrophils % 5 H Lymphocytes % (Manual) 7 L Monocytes % (Manual) 3 Toxic Granulation Present Platelet Estimate Normal Large Platelets Present Polychromasia Slight Hypochromasia (manual) Slight Poikilocytosis (manual Slight Anisocytosis (manual) Slight Ovalocytes Slight Puncture Site pCO2 pO2 HCO3 ABG pH ABG Total CO2 ABG O2 Saturation ABG Base Excess ABG Hemoglobin ABG Carboxyhemoglobin POC ABG HHb (Measured) ABG Methemoglobin Ravi Test A-a O2 Difference Respiratory Index Hgb O2 Saturation Vent Mode Mechanical Rate FiO2 Tidal Volume PEEP POC Glucose (mg/dL) 161 H 151 H 10/19/16 10/20/16 10/20/16 23:58 00:16 05:06 WBC RBC Hgb Hct MCV MCH MCHC RDW Plt Count MPV Neut % (Auto) Lymph % (Auto) [place] % (Auto) Eos % (Auto) Baso % (Auto) Neut # Lymph # [place] # Eos # Baso # Neutrophils % (Manual) Band Neutrophils % Lymphocytes % (Manual) Monocytes % (Manual) Toxic Granulation Platelet Estimate Large Platelets Polychromasia Hypochromasia (manual) Poikilocytosis (manual Anisocytosis (manual) Ovalocytes Puncture Site R brach pCO2 48 H pO2 75 L HCO3 27.7 ABG pH 7.39 ABG Total CO2 30.6 H ABG O2 Saturation 98.0 ABG Base Excess 3.6 H ABG Hemoglobin 8.9 L ABG Carboxyhemoglobin 1.8 H POC ABG HHb (Measured) 1.9 ABG Methemoglobin 0.8 Ravi Test Na A-a O2 Difference 150.0 Respiratory Index 2.0 Hgb O2 Saturation 95.5 Vent Mode Prvc Mechanical Rate 15 FiO2 40.0 Tidal Volume 450 PEEP 5 POC Glucose (mg/dL) 61 L 167 H 10/20/16 10/20/16 10/20/16 05:51 06:23 07:07 WBC 16.9 H RBC 3.05 L Hgb 8.3 L Hct 26.1 L MCV 85.6 MCH 27.2 MCHC 31.7 L RDW 17.5 H Plt Count 307 MPV 8.4 Neut % (Auto) 86.4 H Lymph % (Auto) 8.1 L [place] % (Auto) 5.0 Eos % (Auto) 0.3 Baso % (Auto) 0.2 Neut # 14.6 H Lymph # 1.4 [place] # 0.9 H Eos # 0.0 Baso # 0.0 Neutrophils % (Manual) Band Neutrophils % Lymphocytes % (Manual) Monocytes % (Manual) Toxic Granulation Platelet Estimate Large Platelets Polychromasia Hypochromasia (manual) Poikilocytosis (manual Anisocytosis (manual) Ovalocytes Puncture Site pCO2 pO2 HCO3 ABG pH ABG Total CO2 ABG O2 Saturation ABG Base Excess ABG Hemoglobin ABG Carboxyhemoglobin POC ABG HHb (Measured) ABG Methemoglobin Ravi Test A-a O2 Difference Respiratory Index Hgb O2 Saturation Vent Mode Mechanical Rate FiO2 Tidal Volume PEEP POC Glucose (mg/dL) 173 H 202 H Fingerstick Blood Sugar Results: 173 Review of Systems - Review of Systems Systems not reviewed;Unavailable: Intubated Critical Care Progress Note - Vent Settings TIDAL VOLUME:: 450 RESP RATE:: 15 FIO2:: 40 PEEP:: 5 - Nutrition Nutrition: Nutrition Category Date Time Status NPO Diet [DIET] Diets 10/15/16 Dinner Active Assessment/Plan - Assessment and Plan (Free Text) Assessment: S/p cardiac arrest, h/o nodular lung disease b/l, systolic and diastolic dysfunction heart failure, lbbb, dm, cerebral atrophy, weakness, was found unresponsive ROSC after 20 mins of ACLS protocol, s/p therapeutic hypothermia, remains completely unresponsive. * Severe anoxic damage, discussed with neurology prognosis poor, attempts prolonging life will be futile. * Continues to be on vent due to above * Needs guardianship, ethics committee consulted, supportive care mean while. * RUL aspiration pna on empiric abx, vanco/zosyn * DM stable * GI and dvt prophylaxis * See orders for detail <James Mclean S - Last Filed: 10/20/16 17:14> CCU Objective - Vital Signs / Intake & Output Vital Signs (Last 4 hours): Vital Signs Pulse Resp BP Pulse Ox 10/20/16 15:00 96 H 24 96 10/20/16 14:51 102 H 26 H 112/89 95 10/20/16 14:30 97 H 24 96 10/20/16 14:00 103 H 23 96 10/20/16 13:51 97 H 20 131/63 97 10/20/16 13:30 103 H 25 H 96 Intake and Output (Last 8hrs): Intake & Output 10/20/16 10/20/16 10/20/16 06:59 14:59 22:59 Intake Total 870 630 Output Total 335 360 Balance 535 270 Weight 127 lb 13.89 oz Intake: Intake, IV Amount 600 350 Left Foot 600 350 Tube Feeding 270 180 Other 100 Output: Urine 335 360 Urethral (Barrett) 335 360 - Medications Active Medications: Active Medications Generic Name Dose Route Start Last Admin Trade Name Freq PRN Reason Stop Dose Admin Acetaminophen 650 mg 10/18/16 20:15 10/20/16 10:33 Tylenol 650mg/20.3ml Solution Ud PO 650 mg Q6 PRN Administration Pain, moderate (4-7) Apixaban 2.5 mg 09/23/16 10:00 10/20/16 10:35 Eliquis PO 2.5 mg BID ARTURO Administration Aspirin 81 mg 09/16/16 10:30 10/20/16 10:34 Aspirin Chewable PO 81 mg DAILY ARTURO Administration Divalproex Sodium 125 mg 09/16/16 10:30 10/20/16 10:38 Depakote Sprinkles PO 125 mg BID ARTURO Administration Piperacillin Sod/Tazobactam 100 mls @ 200 mls/hr 10/15/16 10:00 10/20/16 10: 00 Sod 3.375 gm/ Sodium Chloride IVPB 200 mls/hr Q6H ARTURO Administration Vancomycin HCl 750 mg/ Sodium 250 mls @ 166.6 mls/hr 10/15/16 10:00 10/20/16 10:30 Chloride IVPB 166.6 mls/hr Q12H ARTURO Administration Levothyroxine Sodium 37.5 mcg 09/30/16 06:30 10/20/16 05:48 Synthroid PO 37.5 mcg DAILY@0630 ARTURO Administration Midazolam HCl 1 mg 10/15/16 08:14 10/20/16 11:00 Versed Inj IVP 1 mg Q1H PRN Administration Seizure activity Pantoprazole Sodium 40 mg 10/19/16 10:00 10/20/16 10:33 Protonix Susp GT 40 mg DAILY ARTURO Administration Rosuvastatin Calcium 5 mg 09/29/16 22:00 10/19/16 21:14 Crestor PO 5 mg HS ARTURO Administration Tamsulosin HCl 0.4 mg 09/16/16 10:30 10/20/16 10:33 Flomax PO 0.4 mg DAILY ARTURO Administration - Patient Studies Lab Studies: Microbiology Studies 10/15/16 11:00 Blood Culture - Final Blood NO GROWTH AFTER 5 DAYS Gram Stain - Final TEST NOT PERFORMED 10/15/16 10:45 Blood Culture - Final Blood NO GROWTH AFTER 5 DAYS Gram Stain - Final TEST NOT PERFORMED Lab Studies 10/20/16 10/20/16 10/20/16 Range/Units 16:57 12:03 07:07 WBC (4.8-10.8) K/uL RBC (4.40-5.90) Mil/uL Hgb (12.0-18.0) g/dL Hct (35.0-51.0) % MCV (80.0-94.0) fL MCH (27.0-31.0) pg MCHC (33.0-37.0) g/dL RDW (11.5-14.5) % Plt Count (130-400) K/uL MPV (7.2-11.7) fL Neut % (Auto) (50.0-75.0) % Lymph % (Auto) (20.0-40.0) % [place] % (Auto) (0.0-10.0) % Eos % (Auto) (0.0-4.0) % Baso % (Auto) (0.0-2.0) % Neut # (1.8-7.0) K/uL Lymph # (1.0-4.3) K/uL [place] # (0.0-0.8) K/uL Eos # (0.0-0.7) K/uL Baso # (0.0-0.2) K/uL Neutrophils % (Manual) (50-75) % Lymphocytes % (Manual) (20-40) % Monocytes % (Manual) (0-10) % Platelet Estimate (NORMAL) Hypochromasia (manual) Anisocytosis (manual) Ovalocytes Puncture Site pCO2 (35-45) mm/Hg pO2 (80-100) mm/Hg HCO3 (21-28) mmol/L ABG pH (7.35-7.45) ABG Total CO2 (22-28) mmol/L ABG O2 Saturation (95-98) % ABG Base Excess (-2.0-3.0) mmol/L ABG Hemoglobin (11.7-17.4) g/dL ABG Carboxyhemoglobin (0.5-1.5) % POC ABG HHb (Measured) (0.0-5.0) % ABG Methemoglobin (0.0-3.0) % Ravi Test A-a O2 Difference mm/Hg Respiratory Index Hgb O2 Saturation (95.0-98.0) % Vent Mode Mechanical Rate FiO2 % Tidal Volume PEEP Sodium (132-148) mmol/L Potassium (3.6-5.2) mmol/L Chloride (98-107) mmol/L Carbon Dioxide (22-30) mmol/L Anion Gap (10-20) BUN (9-20) mg/dL Creatinine (0.8-1.5) MG/DL Est GFR ( Amer) Est GFR (Non-Af Amer) POC Glucose (mg/dL) 98 173 H 202 H (65-110) mg/dL Random Glucose (75-110) mg/dL Calcium (8.6-10.4) mg/dl Phosphorus (2.5-4.5) mg/dL Magnesium (1.6-2.3) mg/dL Total Bilirubin (0.2-1.3) mg/dL AST (17-59) U/L ALT (21-72) U/L Alkaline Phosphatase (38-126) U/L Total Protein (6.3-8.3) g/dL Albumin (3.5-5.0) g/dL Globulin (2.2-3.9) gm/dL Albumin/Globulin Ratio (1.0-2.1) 10/20/16 10/20/16 10/20/16 Range/Units 06:23 06:23 05:51 WBC 16.9 H (4.8-10.8) K/uL RBC 3.05 L (4.40-5.90) Mil/uL Hgb 8.3 L (12.0-18.0) g/dL Hct 26.1 L (35.0-51.0) % MCV 85.6 (80.0-94.0) fL MCH 27.2 (27.0-31.0) pg MCHC 31.7 L (33.0-37.0) g/dL RDW 17.5 H (11.5-14.5) % Plt Count 307 (130-400) K/uL MPV 8.4 (7.2-11.7) fL Neut % (Auto) 86.4 H (50.0-75.0) % Lymph % (Auto) 8.1 L (20.0-40.0) % [place] % (Auto) 5.0 (0.0-10.0) % Eos % (Auto) 0.3 (0.0-4.0) % Baso % (Auto) 0.2 (0.0-2.0) % Neut # 14.6 H (1.8-7.0) K/uL Lymph # 1.4 (1.0-4.3) K/uL [place] # 0.9 H (0.0-0.8) K/uL Eos # 0.0 (0.0-0.7) K/uL Baso # 0.0 (0.0-0.2) K/uL Neutrophils % (Manual) 87 H (50-75) % Lymphocytes % (Manual) 7 L (20-40) % Monocytes % (Manual) 6 (0-10) % Platelet Estimate Normal (NORMAL) Hypochromasia (manual) Slight Anisocytosis (manual) Slight Ovalocytes Slight Puncture Site pCO2 (35-45) mm/Hg pO2 (80-100) mm/Hg HCO3 (21-28) mmol/L ABG pH (7.35-7.45) ABG Total CO2 (22-28) mmol/L ABG O2 Saturation (95-98) % ABG Base Excess (-2.0-3.0) mmol/L ABG Hemoglobin (11.7-17.4) g/dL ABG Carboxyhemoglobin (0.5-1.5) % POC ABG HHb (Measured) (0.0-5.0) % ABG Methemoglobin (0.0-3.0) % Ravi Test A-a O2 Difference mm/Hg Respiratory Index Hgb O2 Saturation (95.0-98.0) % Vent Mode Mechanical Rate FiO2 % Tidal Volume PEEP Sodium 147 (132-148) mmol/L Potassium 4.3 (3.6-5.2) mmol/L Chloride 109 H (98-107) mmol/L Carbon Dioxide 26 (22-30) mmol/L Anion Gap 16 (10-20) BUN 21 H (9-20) mg/dL Creatinine 0.5 L (0.8-1.5) MG/DL Est GFR ( Amer) > 60 Est GFR (Non-Af Amer) > 60 POC Glucose (mg/dL) 173 H (65-110) mg/dL Random Glucose 155 H (75-110) mg/dL Calcium 8.2 L (8.6-10.4) mg/dl Phosphorus 3.8 (2.5-4.5) mg/dL Magnesium 1.7 (1.6-2.3) mg/dL Total Bilirubin 0.6 (0.2-1.3) mg/dL AST 45 (17-59) U/L ALT 42 (21-72) U/L Alkaline Phosphatase 83 (38-126) U/L Total Protein 5.8 L (6.3-8.3) g/dL Albumin 2.5 L (3.5-5.0) g/dL Globulin 3.4 (2.2-3.9) gm/dL Albumin/Globulin Ratio 0.7 L (1.0-2.1) 10/20/16 10/20/16 10/19/16 Range/Units 05:06 00:16 23:58 WBC (4.8-10.8) K/uL RBC (4.40-5.90) Mil/uL Hgb (12.0-18.0) g/dL Hct (35.0-51.0) % MCV (80.0-94.0) fL MCH (27.0-31.0) pg MCHC (33.0-37.0) g/dL RDW (11.5-14.5) % Plt Count (130-400) K/uL MPV (7.2-11.7) fL Neut % (Auto) (50.0-75.0) % Lymph % (Auto) (20.0-40.0) % [place] % (Auto) (0.0-10.0) % Eos % (Auto) (0.0-4.0) % Baso % (Auto) (0.0-2.0) % Neut # (1.8-7.0) K/uL Lymph # (1.0-4.3) K/uL [place] # (0.0-0.8) K/uL Eos # (0.0-0.7) K/uL Baso # (0.0-0.2) K/uL Neutrophils % (Manual) (50-75) % Lymphocytes % (Manual) (20-40) % Monocytes % (Manual) (0-10) % Platelet Estimate (NORMAL) Hypochromasia (manual) Anisocytosis (manual) Ovalocytes Puncture Site R brach pCO2 48 H (35-45) mm/Hg pO2 75 L (80-100) mm/Hg HCO3 27.7 (21-28) mmol/L ABG pH 7.39 (7.35-7.45) ABG Total CO2 30.6 H (22-28) mmol/L ABG O2 Saturation 98.0 (95-98) % ABG Base Excess 3.6 H (-2.0-3.0) mmol/L ABG Hemoglobin 8.9 L (11.7-17.4) g/dL ABG Carboxyhemoglobin 1.8 H (0.5-1.5) % POC ABG HHb (Measured) 1.9 (0.0-5.0) % ABG Methemoglobin 0.8 (0.0-3.0) % Ravi Test Na A-a O2 Difference 150.0 mm/Hg Respiratory Index 2.0 Hgb O2 Saturation 95.5 (95.0-98.0) % Vent Mode Prvc Mechanical Rate 15 FiO2 40.0 % Tidal Volume 450 PEEP 5 Sodium (132-148) mmol/L Potassium (3.6-5.2) mmol/L Chloride (98-107) mmol/L Carbon Dioxide (22-30) mmol/L Anion Gap (10-20) BUN (9-20) mg/dL Creatinine (0.8-1.5) MG/DL Est GFR ( Amer) Est GFR (Non-Af Amer) POC Glucose (mg/dL) 167 H 61 L (65-110) mg/dL Random Glucose (75-110) mg/dL Calcium (8.6-10.4) mg/dl Phosphorus (2.5-4.5) mg/dL Magnesium (1.6-2.3) mg/dL Total Bilirubin (0.2-1.3) mg/dL AST (17-59) U/L ALT (21-72) U/L Alkaline Phosphatase (38-126) U/L Total Protein (6.3-8.3) g/dL Albumin (3.5-5.0) g/dL Globulin (2.2-3.9) gm/dL Albumin/Globulin Ratio (1.0-2.1) 10/19/16 Range/Units 17:45 WBC (4.8-10.8) K/uL RBC (4.40-5.90) Mil/uL Hgb (12.0-18.0) g/dL Hct (35.0-51.0) % MCV (80.0-94.0) fL MCH (27.0-31.0) pg MCHC (33.0-37.0) g/dL RDW (11.5-14.5) % Plt Count (130-400) K/uL MPV (7.2-11.7) fL Neut % (Auto) (50.0-75.0) % Lymph % (Auto) (20.0-40.0) % [place] % (Auto) (0.0-10.0) % Eos % (Auto) (0.0-4.0) % Baso % (Auto) (0.0-2.0) % Neut # (1.8-7.0) K/uL Lymph # (1.0-4.3) K/uL [place] # (0.0-0.8) K/uL Eos # (0.0-0.7) K/uL Baso # (0.0-0.2) K/uL Neutrophils % (Manual) (50-75) % Lymphocytes % (Manual) (20-40) % Monocytes % (Manual) (0-10) % Platelet Estimate (NORMAL) Hypochromasia (manual) Anisocytosis (manual) Ovalocytes Puncture Site pCO2 (35-45) mm/Hg pO2 (80-100) mm/Hg HCO3 (21-28) mmol/L ABG pH (7.35-7.45) ABG Total CO2 (22-28) mmol/L ABG O2 Saturation (95-98) % ABG Base Excess (-2.0-3.0) mmol/L ABG Hemoglobin (11.7-17.4) g/dL ABG Carboxyhemoglobin (0.5-1.5) % POC ABG HHb (Measured) (0.0-5.0) % ABG Methemoglobin (0.0-3.0) % Ravi Test A-a O2 Difference mm/Hg Respiratory Index Hgb O2 Saturation (95.0-98.0) % Vent Mode Mechanical Rate FiO2 % Tidal Volume PEEP Sodium (132-148) mmol/L Potassium (3.6-5.2) mmol/L Chloride (98-107) mmol/L Carbon Dioxide (22-30) mmol/L Anion Gap (10-20) BUN (9-20) mg/dL Creatinine (0.8-1.5) MG/DL Est GFR ( Amer) Est GFR (Non-Af Amer) POC Glucose (mg/dL) 151 H (65-110) mg/dL Random Glucose (75-110) mg/dL Calcium (8.6-10.4) mg/dl Phosphorus (2.5-4.5) mg/dL Magnesium (1.6-2.3) mg/dL Total Bilirubin (0.2-1.3) mg/dL AST (17-59) U/L ALT (21-72) U/L Alkaline Phosphatase (38-126) U/L Total Protein (6.3-8.3) g/dL Albumin (3.5-5.0) g/dL Globulin (2.2-3.9) gm/dL Albumin/Globulin Ratio (1.0-2.1) Laboratory Results - last 24 hr 10/19/16 10/19/16 10/20/16 17:45 23:58 00:16 WBC RBC Hgb Hct MCV MCH MCHC RDW Plt Count MPV Neut % (Auto) Lymph % (Auto) [place] % (Auto) Eos % (Auto) Baso % (Auto) Neut # Lymph # [place] # Eos # Baso # Neutrophils % (Manual) Lymphocytes % (Manual) Monocytes % (Manual) Platelet Estimate Hypochromasia (manual) Anisocytosis (manual) Ovalocytes Puncture Site pCO2 pO2 HCO3 ABG pH ABG Total CO2 ABG O2 Saturation ABG Base Excess ABG Hemoglobin ABG Carboxyhemoglobin POC ABG HHb (Measured) ABG Methemoglobin Ravi Test A-a O2 Difference Respiratory Index Hgb O2 Saturation Vent Mode Mechanical Rate FiO2 Tidal Volume PEEP Sodium Potassium Chloride Carbon Dioxide Anion Gap BUN Creatinine Est GFR ( Amer) Est GFR (Non-Af Amer) POC Glucose (mg/dL) 151 H 61 L 167 H Random Glucose Calcium Phosphorus Magnesium Total Bilirubin AST ALT Alkaline Phosphatase Total Protein Albumin Globulin Albumin/Globulin Ratio 10/20/16 10/20/16 10/20/16 05:06 05:51 06:23 WBC 16.9 H RBC 3.05 L Hgb 8.3 L Hct 26.1 L MCV 85.6 MCH 27.2 MCHC 31.7 L RDW 17.5 H Plt Count 307 MPV 8.4 Neut % (Auto) 86.4 H Lymph % (Auto) 8.1 L [place] % (Auto) 5.0 Eos % (Auto) 0.3 Baso % (Auto) 0.2 Neut # 14.6 H Lymph # 1.4 [place] # 0.9 H Eos # 0.0 Baso # 0.0 Neutrophils % (Manual) 87 H Lymphocytes % (Manual) 7 L Monocytes % (Manual) 6 Platelet Estimate Normal Hypochromasia (manual) Slight Anisocytosis (manual) Slight Ovalocytes Slight Puncture Site R brach pCO2 48 H pO2 75 L HCO3 27.7 ABG pH 7.39 ABG Total CO2 30.6 H ABG O2 Saturation 98.0 ABG Base Excess 3.6 H ABG Hemoglobin 8.9 L ABG Carboxyhemoglobin 1.8 H POC ABG HHb (Measured) 1.9 ABG Methemoglobin 0.8 Ravi Test Na A-a O2 Difference 150.0 Respiratory Index 2.0 Hgb O2 Saturation 95.5 Vent Mode Prvc Mechanical Rate 15 FiO2 40.0 Tidal Volume 450 PEEP 5 Sodium Potassium Chloride Carbon Dioxide Anion Gap BUN Creatinine Est GFR ( Amer) Est GFR (Non-Af Amer) POC Glucose (mg/dL) 173 H Random Glucose Calcium Phosphorus Magnesium Total Bilirubin AST ALT Alkaline Phosphatase Total Protein Albumin Globulin Albumin/Globulin Ratio 10/20/16 10/20/16 10/20/16 06:23 07:07 12:03 WBC RBC Hgb Hct MCV MCH MCHC RDW Plt Count MPV Neut % (Auto) Lymph % (Auto) [place] % (Auto) Eos % (Auto) Baso % (Auto) Neut # Lymph # [place] # Eos # Baso # Neutrophils % (Manual) Lymphocytes % (Manual) Monocytes % (Manual) Platelet Estimate Hypochromasia (manual) Anisocytosis (manual) Ovalocytes Puncture Site pCO2 pO2 HCO3 ABG pH ABG Total CO2 ABG O2 Saturation ABG Base Excess ABG Hemoglobin ABG Carboxyhemoglobin POC ABG HHb (Measured) ABG Methemoglobin Ravi Test A-a O2 Difference Respiratory Index Hgb O2 Saturation Vent Mode Mechanical Rate FiO2 Tidal Volume PEEP Sodium 147 Potassium 4.3 Chloride 109 H Carbon Dioxide 26 Anion Gap 16 BUN 21 H Creatinine 0.5 L Est GFR ( Amer) > 60 Est GFR (Non-Af Amer) > 60 POC Glucose (mg/dL) 202 H 173 H Random Glucose 155 H Calcium 8.2 L Phosphorus 3.8 Magnesium 1.7 Total Bilirubin 0.6 AST 45 ALT 42 Alkaline Phosphatase 83 Total Protein 5.8 L Albumin 2.5 L Globulin 3.4 Albumin/Globulin Ratio 0.7 L 10/20/16 16:57 WBC RBC Hgb Hct MCV MCH MCHC RDW Plt Count MPV Neut % (Auto) Lymph % (Auto) [place] % (Auto) Eos % (Auto) Baso % (Auto) Neut # Lymph # [place] # Eos # Baso # Neutrophils % (Manual) Lymphocytes % (Manual) Monocytes % (Manual) Platelet Estimate Hypochromasia (manual) Anisocytosis (manual) Ovalocytes Puncture Site pCO2 pO2 HCO3 ABG pH ABG Total CO2 ABG O2 Saturation ABG Base Excess ABG Hemoglobin ABG Carboxyhemoglobin POC ABG HHb (Measured) ABG Methemoglobin Ravi Test A-a O2 Difference Respiratory Index Hgb O2 Saturation Vent Mode Mechanical Rate FiO2 Tidal Volume PEEP Sodium Potassium Chloride Carbon Dioxide Anion Gap BUN Creatinine Est GFR ( Amer) Est GFR (Non-Af Amer) POC Glucose (mg/dL) 98 Random Glucose Calcium Phosphorus Magnesium Total Bilirubin AST ALT Alkaline Phosphatase Total Protein Albumin Globulin Albumin/Globulin Ratio Critical Care Progress Note - Nutrition Nutrition: Nutrition Category Date Time Status NPO Diet [DIET] Diets 10/15/16 Dinner Active Attending/Attestation - Attestation I have personally seen and examined this patient.: Yes I have fully participated in the care of the patient.: Yes I have reviewed all pertinent clinical information: Yes Notes (Text): 10/20/16 17:13 Patient seen and examined in the intensive care unit. Case discussed with house staff in the morning. Remains intubated on ventilatory support No response to painful stimuli Triple lumen inserted left internal jugular vein under aseptic conditions and local anesthesia Prognosis poor
[2016-10-20 08:46] LABS: NEUTROPHIL 87 % (50-75); TOTAL CELLS COUNTED 100
--- NOTE | 2016-10-20 09:37 | RAD ---
PROCEDURE: CHEST RADIOGRAPH, 1 VIEW HISTORY: intubated patient COMPARISON: None available. FINDINGS: LUNGS: In situ ETT, tip of which lies approximately 5.4 cm above bouchra. NGT is present, tip of which has not been included on this film though distal aspect does lie well below EG junction. Diffuse bilateral infiltrates again seen. Findings may represent pneumonia and/or pulmonary edema/CHF. Clinical correlation recommended. Small small bilateral effusions right larger than left PLEURA: As above. No pneumothorax. CARDIOVASCULAR: Heart appears borderline/mildly enlarged OSSEOUS STRUCTURES: No significant abnormalities. VISUALIZED UPPER ABDOMEN: Normal. OTHER FINDINGS: None. IMPRESSION: ETT and NGT as above. Diffuse bilateral infiltrates again seen. Findings may represent pneumonia and/or pulmonary edema/CHF. Clinical correlation recommended. Small small bilateral effusions right larger than left
[2016-10-20] MEDS: Pantoprazole 40 mg Susp UD GT SCH (10:33)
[2016-10-20] MEDS: Divalproex 125 mg Sprinkle Capsule PO SCH ×2 (10:38→17:45)
[2016-10-20] MEDS ORDERED: Propofol 10 mg/ml Inj (20 ML) IV ONE (10:59)
[2016-10-20] MEDS: Midazolam 2 MG/2 ML VIAL IVP PRN ×2 (11:00→21:00)
--- NOTE | 2016-10-20 13:06 | RAD ---
PROCEDURE: CHEST RADIOGRAPH, 1 VIEW HISTORY: TLC insertion. COMPARISON: Comparison chest 10/20/2016 at 0739 hours FINDINGS: In situ ETT, tip of which lies approximately 5.36 cm above bouchra. NGT is present, tip which has not included on film though distal aspect does lie well below EG junction. . Apparent central venous line left IJ with tip overlying upper mediastinum adjacent to mid aspect of the aortic arch likely within the left brachiocephalic vein ; the tip of the central line should optimally be located within the SVC. Clinically correlate. LUNGS: Diffuse bilateral infiltrates which may represent pulmonary edema/CHF and/or pneumonia. Bilateral effusions. Note that the left upper extremity partially obscures left lateral lung base including the left CP angle. PLEURA: As above. Biapical pleural thickening. All No pneumothorax seen. CARDIOVASCULAR: Normal. OSSEOUS STRUCTURES: No significant abnormalities. VISUALIZED UPPER ABDOMEN: Normal. OTHER FINDINGS: None. IMPRESSION: Support lines and tubes as above. Note that the recently placed left IJ central line tip lies of presumably within the brachiocephalic vein and optimally should be advanced. Findings discussed with Dr. Mclean monitored 1 p.m. with written down and read back verification. Diffuse bilateral infiltrates could represent pneumonia or CHF with bilateral effusions. . Clinic clinical correlation recommended.
--- NOTE | 2016-10-20 14:36 | CP.PCM.PN ---
Subjective - Date & Time of Evaluation Date of Evaluation: 10/20/16 Time of Evaluation: 12:40 - Subjective Subjective: clinically same Objective - Vital Signs/Intake and Output Vital Signs (last 24 hours): Temp Pulse Resp BP Pulse Ox 98.9 F 102 H 19 112/66 99 10/20/16 12:00 10/20/16 12:00 10/20/16 12:00 10/20/16 12:00 10/20/16 12:00 Intake and Output: 10/20/16 10/20/16 06:59 18:59 Intake Total 1340 550 Output Total 575 220 Balance 765 330 - Medications Medications: Current Medications Acetaminophen (Tylenol 650mg/20.3ml Solution Ud) 650 mg PO Q6 PRN PRN Reason: Pain, moderate (4-7) Last Admin: 10/20/16 10:33 Dose: 650 mg Apixaban (Eliquis) 2.5 mg PO BID [facility] Last Admin: 10/20/16 10:35 Dose: 2.5 mg Aspirin (Aspirin Chewable) 81 mg PO DAILY [facility] Last Admin: 10/20/16 10:34 Dose: 81 mg Divalproex Sodium (Depakote Sprinkles) 125 mg PO BID [facility] Last Admin: 10/20/16 10:38 Dose: 125 mg Piperacillin Sod/Tazobactam (Sod 3.375 gm/ Sodium Chloride) 100 mls @ 200 mls/ hr IVPB Q6H [facility] Last Admin: 10/20/16 10:00 Dose: 200 mls/hr Vancomycin HCl 750 mg/ Sodium (Chloride) 250 mls @ 166.6 mls/hr IVPB Q12H [facility] Last Admin: 10/20/16 10:30 Dose: 166.6 mls/hr Levothyroxine Sodium (Synthroid) 37.5 mcg PO DAILY@0630 [facility] Last Admin: 10/20/16 05:48 Dose: 37.5 mcg Midazolam HCl (Versed Inj) 1 mg IVP Q1H PRN PRN Reason: Seizure activity Last Admin: 10/20/16 11:00 Dose: 1 mg Pantoprazole Sodium (Protonix Susp) 40 mg GT DAILY [facility] Last Admin: 10/20/16 10:33 Dose: 40 mg Rosuvastatin Calcium (Crestor) 5 mg PO HS [facility] Last Admin: 09/04/17 21:14 Dose: 5 mg Tamsulosin HCl (Flomax) 0.4 mg PO DAILY [facility] Last Admin: 10/20/16 10:33 Dose: 0.4 mg - Labs Labs: 10/20/16 06:23 10/20/16 06:23 - Constitutional Appears: Well - Head Exam Head Exam: ATRAUMATIC, NORMAL INSPECTION, NORMOCEPHALIC - Eye Exam Eye Exam: EOMI, Normal appearance, PERRL Pupil Exam: NORMAL ACCOMODATION, PERRL - ENT Exam ENT Exam: Mucous Membranes Moist, Normal Exam - Neck Exam Neck Exam: Full ROM, Normal Inspection. absent: Lymphadenopathy - Respiratory Exam Respiratory Exam: Decreased Breath Sounds - Cardiovascular Exam Cardiovascular Exam: REGULAR RHYTHM, +S1, +S2 - GI/Abdominal Exam GI & Abdominal Exam: Soft, Diminished Bowel Sounds - Rectal Exam Rectal Exam: Deferred Assessment and Plan (1) Abnormal CXR (chest x-ray) Status: Acute (2) COPD (chronic obstructive pulmonary disease) Status: Acute (3) COPD exacerbation Status: Acute (4) Cardiac disease Status: Acute (5) Depression Status: Acute (6) Diabetes Status: Acute
--- NOTE | 2016-10-20 17:16 | PCM.PROC ---
Procedures Attestation:: I certify that I have explained the specified Operation(s) or Procedure(s), risks, benefits and reasonable alternatives to the Patient and/or other person responsible. The opportunity was given to ask questions and all questions answered - Central Line Placement Left Internal Jugular Aseptic technique was employed throughout the procedure: Hand Hygiene done prior to procedure, Full sterile barriers (mask, hair cover, sterile gown, sterile gloves), Full body sterile drape, Chloraprep Antiseptic: 30 second prep for IJ or SC sites CVP Time Out Performed: Yes Pt. Placed on Pulse Ox Monitor: Yes Central Line Prep: Chlorhexidine-Alcohol Combination Local Anesthesia Used: Lidocaine 1% Amount of Anesthesia Used (mls): 3 Ultrasound Used for Placement: Yes Central Line Lumen Inserted: triple Central Line Length: 16 cm Post Procedure: Sutured in Place, Good Blood Return, All Ports Aspirated, Flushed, Capped, Sterile Dressing Applied Secured by: Suture Post procedure dressing: Chlorhexidine disc (Biopatch) Post Procedure X-Ray: Yes Patient Tolerated Procedure: Well Immediate Complications: None
[2016-10-21] MEDS: Midazolam 2 MG/2 ML VIAL IVP PRN ×2 (00:30→17:12)
[2016-10-21] MEDS ORDERED: Sodium Chloride 0.9% 500 ML IV ONE (02:24)
--- NOTE | 2016-10-21 02:26 | CP.PCM.PCO ---
Physician Communication Note - Physician Communication Note Physician Communication Note: Blood pressure 83/42mmHg. I will give NS bolus 500ml
[2016-10-21] MEDS: Piperacillin/Tazobact 3.375 GM in Sodium Chloride 100 ML IVPB SCH ×4 (04:00→22:00)
[2016-10-21] MEDS: Levothyroxine 75 MCG TAB PO SCH ×2 (05:26→05:29)
[2016-10-21 05:57] LABS: ABG MECHANICAL RATE 15; ARTERIAL BLOOD GAS MODE PRVC; ARTERIAL BLOOD HGB O2 SAT 95.3 % (95.0-98.0); ATERIAL BLOOD GAS PEEP 5; CARBOXYHEMOGLOBIN 1.4 % (0.5-1.5); DRAW SITE RB; HHB 2.2 % (0.0-5.0); METHEMOGLOBIN 1.2 % (0.0-3.0)
[2016-10-21 06:28] LABS: BASO % 0.1 % (0.0-2.0); HEMATOCRIT 23.4 % (35.0-51.0); LYMPH # 1.1 K/uL (1.0-4.3); LYMPH % 8.5 % (20.0-40.0); MEAN CELL VOLUME 86.5 fL (80.0-94.0); MEAN CORPUSCULAR HEMOGLOBIN 27.6 pg (27.0-31.0); MEAN PLATELET VOLUME 8.3 fL (7.2-11.7); MONO # 1.1 K/uL (0.0-0.8); MONO % 8.6 % (0.0-10.0); NRBC % 0.1 % (0.0-2.0); PLATELET COUNT 169 K/uL (130-400); RED CELL DISTRIBUTION WIDTH 17.9 % (11.5-14.5); WHITE BLOOD COUNT 12.4 K/uL (4.8-10.8)
[2016-10-21 06:45] LABS: ALB/GLOB RATIO 0.8 (1.0-2.1); ALKALINE PHOSPHATASE 64 U/L (38-126); ALT/SGPT 42 U/L (21-72); AST/SGOT 42 U/L (17-59); BILIRUBIN,TOTAL 0.1 mg/dL (0.2-1.3); BLOOD UREA NITROGEN 31 mg/dL (9-20); CALCIUM 7.7 mg/dl (8.6-10.4); CARBON DIOXIDE 27 mmol/L (22-30); CHLORIDE 112 mmol/L (98-107); GFR AFRICAN-AMERICAN > 60; GLUCOSE,RANDOM 189 mg/dL (75-110); MAGNESIUM 1.7 mg/dL (1.6-2.3); PHOSPHOROUS 3.2 mg/dL (2.5-4.5); POTASSIUM 3.6 mmol/L (3.6-5.2); SODIUM 148 mmol/L (132-148)
[2016-10-21 08:25] LABS: NEUTROPHIL 87 % (50-75); TOTAL CELLS COUNTED 100
--- NOTE | 2016-10-21 10:09 | RAD ---
HISTORY: Intubated COMPARISON: Portable chest 10/20/2016. FINDINGS: Endotracheal tube is unchanged in position as well as nasogastric tube. Left central venous line is unchanged as well. LUNGS: Scattered bilateral infiltrates appear somewhat diminished despite underpenetration on this radiograph. Right basilar patchy atelectasis or infiltrate is unchanged however. Underlying CHF pattern remains difficult to exclude and is likely. No left pleural effusion. Trace right pleural effusion is present. No pneumothorax bilaterally. PLEURA: As above. CARDIOVASCULAR: Cardiac silhouette is stable. Pulmonary vascular congestion not simply changed. OSSEOUS STRUCTURES: No significant abnormalities. VISUALIZED UPPER ABDOMEN: Normal. OTHER FINDINGS: None. IMPRESSION: Likely improved bilateral infiltrates or CHF. Right basilar patchy atelectasis or infiltrate persists with trace right pleural effusion unchanged.
--- NOTE | 2016-10-21 10:35 | CP.PCM.CON ---
History of Present Illness - History of Present Illness History of Present Illness: Palliative consult Requested by Nino PEREZ Reason: assist in the process of terminal extubation Patient is a 81 yo male initially admitted on 07/15/2016 from group home with noncompliance with care and suicidal ideation. Patient was seen by psychiatrist and fallowed ever since. During this hospitalization patient was on close observation in 4 bed room. Patient categorically has been refusing return to group home and as he claimed no close family members, process for guardian ship was initiated. On 10/14/2016 while having his dinner in presence of the SPEARER, patient suddenly become unresponsive and pulse less. CODE blue was called immediately, patient intubated on the field and transfered to ICU . Pulse was regained. The EEG was suggestive of abnormal slowing activities and possibility of clinical seizures. ICU team felt that patient become terminally ill with no expectd meaningful recovery and Palliative Consult was called to assist in the process of care planing, most likely terminal extubation. PMH: CHF, HTN, DM, asthma, depression, suicidal ideation Soc. hx: single, denied family ties ( when was able to talk) Fam. Hx: unknown Review of Systems - Review of Systems Systems not reviewed;Unavailable: Intubated All systems: reviewed and no additional remarkable complaints except Review of Systems: As per nursing , patient has been of sedation and remaind unresponsive to stimulus and tachycardic. Past Patient History - Past Medical History & Family History Past Medical History?: Yes - Past Social History Smoking Status: Unknown If Ever Smoked - CARDIAC Hx Congestive Heart Failure: Yes Hx Hypertension: Yes - PULMONARY Hx Chronic Obstructive Pulmonary Disease (COPD): Yes - NEUROLOGICAL Hx Alzheimer's Disease: Yes Hx Dementia: Yes - ENDOCRINE/METABOLIC Hx Diabetes Mellitus Type 2: Yes Hx Hypothyroidism: Yes - MUSCULOSKELETAL/RHEUMATOLOGICAL Hx Arthritis: Yes - PSYCHIATRIC Hx Depression: Yes Hx Substance Use: No - SURGICAL HISTORY Hx Appendectomy: Yes - ANESTHESIA Hx Anesthesia: Yes Hx Anesthesia Reactions: No Hx Malignant Hyperthermia: No Has any member of the family had a problem w/ anesthesia?: No Meds Allergies/Adverse Reactions: Allergies Allergy/AdvReac Type Severity Reaction Status Date / Time No Known Allergies Allergy Unverified 07/15/16 13:18 - Medications Medications: Current Medications Acetaminophen (Tylenol 650mg/20.3ml Solution Ud) 650 mg PO Q6 PRN PRN Reason: Pain, moderate (4-7) Last Admin: 10/20/16 22:54 Dose: 650 mg Apixaban (Eliquis) 2.5 mg PO BID [facility] Last Admin: 10/20/16 17:46 Dose: 2.5 mg Aspirin (Aspirin Chewable) 81 mg PO DAILY [facility] Last Admin: 10/20/16 10:34 Dose: 81 mg Divalproex Sodium (Depakote Sprinkles) 125 mg PO BID [facility] Last Admin: 10/20/16 17:45 Dose: 125 mg Piperacillin Sod/Tazobactam (Sod 3.375 gm/ Sodium Chloride) 100 mls @ 200 mls/ hr IVPB Q6H [facility] Last Admin: 10/21/16 04:00 Dose: 200 mls/hr Vancomycin HCl 750 mg/ Sodium (Chloride) 250 mls @ 166.6 mls/hr IVPB Q12H [facility] Last Admin: 10/20/16 22:30 Dose: 166.6 mls/hr Levothyroxine Sodium (Synthroid) 37.5 mcg PO DAILY@0630 [facility] Last Admin: 10/21/16 05:29 Dose: 37.5 mcg Midazolam HCl (Versed Inj) 1 mg IVP Q1H PRN PRN Reason: Seizure activity Last Admin: 10/21/16 00:30 Dose: 1 mg Pantoprazole Sodium (Protonix Susp) 40 mg GT DAILY [facility] Last Admin: 10/20/16 10:33 Dose: 40 mg Rosuvastatin Calcium (Crestor) 5 mg PO HS [facility] Last Admin: 10/20/16 22:48 Dose: 5 mg Tamsulosin HCl (Flomax) 0.4 mg PO DAILY [facility] Last Admin: 10/20/16 10:33 Dose: 0.4 mg Physical Exam - Constitutional Appears: In Acute Distress - Head Exam Head Exam: ATRAUMATIC, NORMAL INSPECTION, NORMOCEPHALIC - Eye Exam Eye Exam: EOMI, Normal appearance Pupil Exam: Fixed - ENT Exam Additional comments: ETT - Neck Exam Neck exam: Positive for: Normal Inspection - Respiratory Exam Additional comments: on MV support - Cardiovascular Exam Cardiovascular Exam: Tachycardia - GI/Abdominal Exam GI & Abdominal Exam: Hypoactive Bowel Sounds - Rectal Exam Rectal Exam: Deferred - Extremities Exam Extremities exam: Positive for: pedal edema Additional comments: edema to upper extremities - Back Exam Back exam: NORMAL INSPECTION - Neurological Exam Neurological exam: Motor Sensory Deficit - Psychiatric Exam Psychiatric exam: Flat Affect - Skin Skin Exam: Pallor Results - Vital Signs Recent Vital Signs: Last Vital Signs Temp 98.8 F 10/21/16 04:00 Pulse 102 H 10/21/16 05:52 Resp 20 10/21/16 05:52 BP 118/73 10/21/16 05:52 Pulse Ox 100 10/21/16 05:52 - Labs Result Diagrams: 10/21/16 06:14 10/21/16 06:14 Labs: Laboratory Results - last 24 hr 10/20/16 10/20/16 10/20/16 12:03 16:57 17:40 WBC RBC Hgb Hct MCV MCH MCHC RDW Plt Count MPV Neut % (Auto) Lymph % (Auto) Baldwin % (Auto) Eos % (Auto) Baso % (Auto) Neut # Lymph # Baldwin # Eos # Baso # Neutrophils % (Manual) Band Neutrophils % Lymphocytes % (Manual) Monocytes % (Manual) Platelet Estimate Polychromasia Hypochromasia (manual) Anisocytosis (manual) Ovalocytes Puncture Site pCO2 pO2 HCO3 ABG pH ABG Total CO2 ABG O2 Saturation ABG Base Excess ABG Hemoglobin ABG Carboxyhemoglobin POC ABG HHb (Measured) ABG Methemoglobin Ravi Test A-a O2 Difference Respiratory Index Hgb O2 Saturation Vent Mode Mechanical Rate FiO2 Tidal Volume PEEP Sodium Potassium Chloride Carbon Dioxide Anion Gap BUN Creatinine Est GFR ( Amer) Est GFR (Non-Af Amer) POC Glucose (mg/dL) 173 H 98 190 H Random Glucose Calcium Phosphorus Magnesium Total Bilirubin AST ALT Alkaline Phosphatase Total Protein Albumin Globulin Albumin/Globulin Ratio 10/20/16 10/21/16 10/21/16 23:32 05:34 06:13 WBC RBC Hgb Hct MCV MCH MCHC RDW Plt Count MPV Neut % (Auto) Lymph % (Auto) Baldwin % (Auto) Eos % (Auto) Baso % (Auto) Neut # Lymph # Baldwin # Eos # Baso # Neutrophils % (Manual) Band Neutrophils % Lymphocytes % (Manual) Monocytes % (Manual) Platelet Estimate Polychromasia Hypochromasia (manual) Anisocytosis (manual) Ovalocytes Puncture Site Rb pCO2 50 H pO2 79 L HCO3 27.4 ABG pH 7.37 ABG Total CO2 30.4 H ABG O2 Saturation 97.7 ABG Base Excess 3.2 H ABG Hemoglobin 7.4 L ABG Carboxyhemoglobin 1.4 POC ABG HHb (Measured) 2.2 ABG Methemoglobin 1.2 Ravi Test Na A-a O2 Difference 144.0 Respiratory Index 1.8 Hgb O2 Saturation 95.3 Vent Mode Prvc Mechanical Rate 15 FiO2 40.0 Tidal Volume 450 PEEP 5 Sodium Potassium Chloride Carbon Dioxide Anion Gap BUN Creatinine Est GFR ( Amer) Est GFR (Non-Af Amer) POC Glucose (mg/dL) 222 H 255 H Random Glucose Calcium Phosphorus Magnesium Total Bilirubin AST ALT Alkaline Phosphatase Total Protein Albumin Globulin Albumin/Globulin Ratio 10/21/16 10/21/16 06:14 06:14 WBC 12.4 H RBC 2.70 L Hgb 7.5 L Hct 23.4 L MCV 86.5 MCH 27.6 MCHC 32.0 L RDW 17.9 H Plt Count 169 D MPV 8.3 Neut % (Auto) 82.8 H Lymph % (Auto) 8.5 L Baldwin % (Auto) 8.6 Eos % (Auto) 0.0 Baso % (Auto) 0.1 Neut # 10.3 H Lymph # 1.1 Baldwin # 1.1 H Eos # 0.0 Baso # 0.0 Neutrophils % (Manual) 87 H Band Neutrophils % 2 Lymphocytes % (Manual) 6 L Monocytes % (Manual) 5 Platelet Estimate Normal Polychromasia Slight Hypochromasia (manual) Slight Anisocytosis (manual) Slight Ovalocytes Slight Puncture Site pCO2 pO2 HCO3 ABG pH ABG Total CO2 ABG O2 Saturation ABG Base Excess ABG Hemoglobin ABG Carboxyhemoglobin POC ABG HHb (Measured) ABG Methemoglobin Ravi Test A-a O2 Difference Respiratory Index Hgb O2 Saturation Vent Mode Mechanical Rate FiO2 Tidal Volume PEEP Sodium 148 Potassium 3.6 Chloride 112 H Carbon Dioxide 27 Anion Gap 13 BUN 31 H Creatinine 0.8 Est GFR ( Amer) > 60 Est GFR (Non-Af Amer) > 60 POC Glucose (mg/dL) Random Glucose 189 H Calcium 7.7 L Phosphorus 3.2 Magnesium 1.7 Total Bilirubin 0.1 L AST 42 ALT 42 Alkaline Phosphatase 64 Total Protein 5.0 L Albumin 2.2 L Globulin 2.7 Albumin/Globulin Ratio 0.8 L Assessment & Plan - Assessment and Plan (Free Text) Assessment: Palliative consult Code status Full Code, no advance directive on chart, PPS 0%, ROS obtained from nursing I reviewed medical records, examined patient in the bed, discussed his condition with ICU team and with Doctor Avelar. Patient is intubated on MV, of sedation and unresponsive to stimulus.Patient looks very ill. Skin is pale, Hb dropped to 7.5 from 8.3. There is large edema to upper arms and LEs. Albumin 2.2. Pupils are non reactive to light, cormel and gag reflexes are absent, GCS 3.BP 118/73, HR102. WBC 12.4, Zosyn and Vanco IV on board. Patient given Central line by Doctor Mclean. Artificial hydration and nutrition. I discussed this patient's condition with Doctor Barrera as the ICU team and myself included, felt that further care would be futile . It was advised to fallow the Hospital's Policy which calls for two Physicians to agree with the ptocess of removing life support and allowing of natural . I communicated this to Doctor Mclean who was to talk to Doctor yemi Solis . Impression * This is a very sad case; a very unfortunate man with no close family members with unknown wishes for end of life care * Patient looks terminally ill with no expected meaningful recovery based on overall impression of health care team * Patient is unable to advocate for him self and guardianship process is not completed Suggestion * Would allow this terminally ill and dying patient natural , without unnecessary prolonging it by lifer support * Patient should be made DNR with agreement from two Physicians and allowed natural * Would stop all further diagnostic studies including blood work. Thank you very much for including me in the care of this patient.
--- NOTE | 2016-10-21 11:18 | CP.CCUPN ---
<Aaron Herzog - Last Filed: 10/21/16 11:57> CCU Subjective - Physician Review Subjective (Free Text): Patient seen and examined at bedside. Case discussed with house staff in the morning. Subjective history not obtained as patient is intubated and unresponsive to painful stimuli. Triple lumen catheter inserted in Left internal jugular remains c/d/i. 10/21/16 11:17 CCU Objective - Vital Signs / Intake & Output Intake and Output (Last 8hrs): Intake & Output 10/20/16 10/21/16 10/21/16 22:59 06:59 14:59 Intake Total 580 440 Output Total 400 400 Balance 180 40 Intake: Intake, IV Amount 220 200 Left Foot 220 200 Tube Feeding 210 240 Other 150 Output: Urine 400 400 Urethral (Barrett) 400 400 - Physical Exam Head: Positive for: Atraumatic, Normocephalic Pupils: Positive for: Non-Reactive, Pinpoint Ears: Positive for: Normal Neck: Negative for: JVD Respiratory/Chest: Positive for: Clear to Auscultation. Negative for: Wheezes, Rales Cardiovascular: Positive for: Regular Rate and Rhythm. Negative for: Murmurs Abdomen: Positive for: Normal Bowel Sounds Lower Extremity: Negative for: Edema Neurological: Positive for: Other (comatose) Psychiatric: Negative for: Alert - Medications Active Medications: Active Medications Generic Name Dose Route Start Last Admin Trade Name Freq PRN Reason Stop Dose Admin Acetaminophen 650 mg 10/18/16 20:15 10/20/16 22:54 Tylenol 650mg/20.3ml Solution Ud PO 650 mg Q6 PRN Administration Pain, moderate (4-7) Apixaban 2.5 mg 09/23/16 10:00 10/20/16 17:46 Eliquis PO 2.5 mg BID ARTURO Administration Aspirin 81 mg 09/16/16 10:30 10/20/16 10:34 Aspirin Chewable PO 81 mg DAILY ARTURO Administration Divalproex Sodium 125 mg 09/16/16 10:30 10/20/16 17:45 Depakote Sprinkles PO 125 mg BID ARTURO Administration Piperacillin Sod/Tazobactam 100 mls @ 200 mls/hr 10/15/16 10:00 10/21/16 04: 00 Sod 3.375 gm/ Sodium Chloride IVPB 200 mls/hr Q6H ARTURO Administration Vancomycin HCl 750 mg/ Sodium 250 mls @ 166.6 mls/hr 10/15/16 10:00 10/20/16 22:30 Chloride IVPB 166.6 mls/hr Q12H ARTURO Administration Levothyroxine Sodium 37.5 mcg 09/30/16 06:30 10/21/16 05:29 Synthroid PO 37.5 mcg DAILY@0630 ARTURO Administration Midazolam HCl 1 mg 10/15/16 08:14 10/21/16 00:30 Versed Inj IVP 1 mg Q1H PRN Administration Seizure activity Pantoprazole Sodium 40 mg 10/19/16 10:00 10/20/16 10:33 Protonix Susp GT 40 mg DAILY ARTURO Administration Rosuvastatin Calcium 5 mg 09/29/16 22:00 10/20/16 22:48 Crestor PO 5 mg HS ARTURO Administration Tamsulosin HCl 0.4 mg 09/16/16 10:30 10/20/16 10:33 Flomax PO 0.4 mg DAILY ARTURO Administration - Patient Studies Lab Studies: Microbiology Studies 10/15/16 11:00 Blood Culture - Final Blood NO GROWTH AFTER 5 DAYS Gram Stain - Final TEST NOT PERFORMED 10/15/16 10:45 Blood Culture - Final Blood NO GROWTH AFTER 5 DAYS Gram Stain - Final TEST NOT PERFORMED Lab Studies 10/21/16 10/21/16 10/21/16 Range/Units 06:14 06:14 06:13 WBC 12.4 H (4.8-10.8) K/uL RBC 2.70 L (4.40-5.90) Mil/uL Hgb 7.5 L (12.0-18.0) g/dL Hct 23.4 L (35.0-51.0) % MCV 86.5 (80.0-94.0) fL MCH 27.6 (27.0-31.0) pg MCHC 32.0 L (33.0-37.0) g/dL RDW 17.9 H (11.5-14.5) % Plt Count 169 D (130-400) K/uL MPV 8.3 (7.2-11.7) fL Neut % (Auto) 82.8 H (50.0-75.0) % Lymph % (Auto) 8.5 L (20.0-40.0) % [place] % (Auto) 8.6 (0.0-10.0) % Eos % (Auto) 0.0 (0.0-4.0) % Baso % (Auto) 0.1 (0.0-2.0) % Neut # 10.3 H (1.8-7.0) K/uL Lymph # 1.1 (1.0-4.3) K/uL [place] # 1.1 H (0.0-0.8) K/uL Eos # 0.0 (0.0-0.7) K/uL Baso # 0.0 (0.0-0.2) K/uL Neutrophils % (Manual) 87 H (50-75) % Band Neutrophils % 2 (0-2) % Lymphocytes % (Manual) 6 L (20-40) % Monocytes % (Manual) 5 (0-10) % Platelet Estimate Normal (NORMAL) Polychromasia Slight Hypochromasia (manual) Slight Anisocytosis (manual) Slight Ovalocytes Slight Puncture Site pCO2 (35-45) mm/Hg pO2 (80-100) mm/Hg HCO3 (21-28) mmol/L ABG pH (7.35-7.45) ABG Total CO2 (22-28) mmol/L ABG O2 Saturation (95-98) % ABG Base Excess (-2.0-3.0) mmol/L ABG Hemoglobin (11.7-17.4) g/dL ABG Carboxyhemoglobin (0.5-1.5) % POC ABG HHb (Measured) (0.0-5.0) % ABG Methemoglobin (0.0-3.0) % Ravi Test A-a O2 Difference mm/Hg Respiratory Index Hgb O2 Saturation (95.0-98.0) % Vent Mode Mechanical Rate FiO2 % Tidal Volume PEEP Sodium 148 (132-148) mmol/L Potassium 3.6 (3.6-5.2) mmol/L Chloride 112 H (98-107) mmol/L Carbon Dioxide 27 (22-30) mmol/L Anion Gap 13 (10-20) BUN 31 H (9-20) mg/dL Creatinine 0.8 (0.8-1.5) MG/DL Est GFR ( Amer) > 60 Est GFR (Non-Af Amer) > 60 POC Glucose (mg/dL) 255 H (65-110) mg/dL Random Glucose 189 H (75-110) mg/dL Calcium 7.7 L (8.6-10.4) mg/dl Phosphorus 3.2 (2.5-4.5) mg/dL Magnesium 1.7 (1.6-2.3) mg/dL Total Bilirubin 0.1 L (0.2-1.3) mg/dL AST 42 (17-59) U/L ALT 42 (21-72) U/L Alkaline Phosphatase 64 (38-126) U/L Total Protein 5.0 L (6.3-8.3) g/dL Albumin 2.2 L (3.5-5.0) g/dL Globulin 2.7 (2.2-3.9) gm/dL Albumin/Globulin Ratio 0.8 L (1.0-2.1) 10/21/16 10/20/16 10/20/16 Range/Units 05:34 23:32 17:40 WBC (4.8-10.8) K/uL RBC (4.40-5.90) Mil/uL Hgb (12.0-18.0) g/dL Hct (35.0-51.0) % MCV (80.0-94.0) fL MCH (27.0-31.0) pg MCHC (33.0-37.0) g/dL RDW (11.5-14.5) % Plt Count (130-400) K/uL MPV (7.2-11.7) fL Neut % (Auto) (50.0-75.0) % Lymph % (Auto) (20.0-40.0) % [place] % (Auto) (0.0-10.0) % Eos % (Auto) (0.0-4.0) % Baso % (Auto) (0.0-2.0) % Neut # (1.8-7.0) K/uL Lymph # (1.0-4.3) K/uL [place] # (0.0-0.8) K/uL Eos # (0.0-0.7) K/uL Baso # (0.0-0.2) K/uL Neutrophils % (Manual) (50-75) % Band Neutrophils % (0-2) % Lymphocytes % (Manual) (20-40) % Monocytes % (Manual) (0-10) % Platelet Estimate (NORMAL) Polychromasia Hypochromasia (manual) Anisocytosis (manual) Ovalocytes Puncture Site Rb pCO2 50 H (35-45) mm/Hg pO2 79 L (80-100) mm/Hg HCO3 27.4 (21-28) mmol/L ABG pH 7.37 (7.35-7.45) ABG Total CO2 30.4 H (22-28) mmol/L ABG O2 Saturation 97.7 (95-98) % ABG Base Excess 3.2 H (-2.0-3.0) mmol/L ABG Hemoglobin 7.4 L (11.7-17.4) g/dL ABG Carboxyhemoglobin 1.4 (0.5-1.5) % POC ABG HHb (Measured) 2.2 (0.0-5.0) % ABG Methemoglobin 1.2 (0.0-3.0) % Ravi Test Na A-a O2 Difference 144.0 mm/Hg Respiratory Index 1.8 Hgb O2 Saturation 95.3 (95.0-98.0) % Vent Mode Prvc Mechanical Rate 15 FiO2 40.0 % Tidal Volume 450 PEEP 5 Sodium (132-148) mmol/L Potassium (3.6-5.2) mmol/L Chloride (98-107) mmol/L Carbon Dioxide (22-30) mmol/L Anion Gap (10-20) BUN (9-20) mg/dL Creatinine (0.8-1.5) MG/DL Est GFR ( Amer) Est GFR (Non-Af Amer) POC Glucose (mg/dL) 222 H 190 H (65-110) mg/dL Random Glucose (75-110) mg/dL Calcium (8.6-10.4) mg/dl Phosphorus (2.5-4.5) mg/dL Magnesium (1.6-2.3) mg/dL Total Bilirubin (0.2-1.3) mg/dL AST (17-59) U/L ALT (21-72) U/L Alkaline Phosphatase (38-126) U/L Total Protein (6.3-8.3) g/dL Albumin (3.5-5.0) g/dL Globulin (2.2-3.9) gm/dL Albumin/Globulin Ratio (1.0-2.1) 10/20/16 10/20/16 Range/Units 16:57 12:03 WBC (4.8-10.8) K/uL RBC (4.40-5.90) Mil/uL Hgb (12.0-18.0) g/dL Hct (35.0-51.0) % MCV (80.0-94.0) fL MCH (27.0-31.0) pg MCHC (33.0-37.0) g/dL RDW (11.5-14.5) % Plt Count (130-400) K/uL MPV (7.2-11.7) fL Neut % (Auto) (50.0-75.0) % Lymph % (Auto) (20.0-40.0) % [place] % (Auto) (0.0-10.0) % Eos % (Auto) (0.0-4.0) % Baso % (Auto) (0.0-2.0) % Neut # (1.8-7.0) K/uL Lymph # (1.0-4.3) K/uL [place] # (0.0-0.8) K/uL Eos # (0.0-0.7) K/uL Baso # (0.0-0.2) K/uL Neutrophils % (Manual) (50-75) % Band Neutrophils % (0-2) % Lymphocytes % (Manual) (20-40) % Monocytes % (Manual) (0-10) % Platelet Estimate (NORMAL) Polychromasia Hypochromasia (manual) Anisocytosis (manual) Ovalocytes Puncture Site pCO2 (35-45) mm/Hg pO2 (80-100) mm/Hg HCO3 (21-28) mmol/L ABG pH (7.35-7.45) ABG Total CO2 (22-28) mmol/L ABG O2 Saturation (95-98) % ABG Base Excess (-2.0-3.0) mmol/L ABG Hemoglobin (11.7-17.4) g/dL ABG Carboxyhemoglobin (0.5-1.5) % POC ABG HHb (Measured) (0.0-5.0) % ABG Methemoglobin (0.0-3.0) % Ravi Test A-a O2 Difference mm/Hg Respiratory Index Hgb O2 Saturation (95.0-98.0) % Vent Mode Mechanical Rate FiO2 % Tidal Volume PEEP Sodium (132-148) mmol/L Potassium (3.6-5.2) mmol/L Chloride (98-107) mmol/L Carbon Dioxide (22-30) mmol/L Anion Gap (10-20) BUN (9-20) mg/dL Creatinine (0.8-1.5) MG/DL Est GFR ( Amer) Est GFR (Non-Af Amer) POC Glucose (mg/dL) 98 173 H (65-110) mg/dL Random Glucose (75-110) mg/dL Calcium (8.6-10.4) mg/dl Phosphorus (2.5-4.5) mg/dL Magnesium (1.6-2.3) mg/dL Total Bilirubin (0.2-1.3) mg/dL AST (17-59) U/L ALT (21-72) U/L Alkaline Phosphatase (38-126) U/L Total Protein (6.3-8.3) g/dL Albumin (3.5-5.0) g/dL Globulin (2.2-3.9) gm/dL Albumin/Globulin Ratio (1.0-2.1) Laboratory Results - last 24 hr 10/20/16 10/20/16 10/20/16 12:03 16:57 17:40 WBC RBC Hgb Hct MCV MCH MCHC RDW Plt Count MPV Neut % (Auto) Lymph % (Auto) [place] % (Auto) Eos % (Auto) Baso % (Auto) Neut # Lymph # [place] # Eos # Baso # Neutrophils % (Manual) Band Neutrophils % Lymphocytes % (Manual) Monocytes % (Manual) Platelet Estimate Polychromasia Hypochromasia (manual) Anisocytosis (manual) Ovalocytes Puncture Site pCO2 pO2 HCO3 ABG pH ABG Total CO2 ABG O2 Saturation ABG Base Excess ABG Hemoglobin ABG Carboxyhemoglobin POC ABG HHb (Measured) ABG Methemoglobin Rvai Test A-a O2 Difference Respiratory Index Hgb O2 Saturation Vent Mode Mechanical Rate FiO2 Tidal Volume PEEP Sodium Potassium Chloride Carbon Dioxide Anion Gap BUN Creatinine Est GFR ( Amer) Est GFR (Non-Af Amer) POC Glucose (mg/dL) 173 H 98 190 H Random Glucose Calcium Phosphorus Magnesium Total Bilirubin AST ALT Alkaline Phosphatase Total Protein Albumin Globulin Albumin/Globulin Ratio 10/20/16 10/21/16 10/21/16 23:32 05:34 06:13 WBC RBC Hgb Hct MCV MCH MCHC RDW Plt Count MPV Neut % (Auto) Lymph % (Auto) [place] % (Auto) Eos % (Auto) Baso % (Auto) Neut # Lymph # [place] # Eos # Baso # Neutrophils % (Manual) Band Neutrophils % Lymphocytes % (Manual) Monocytes % (Manual) Platelet Estimate Polychromasia Hypochromasia (manual) Anisocytosis (manual) Ovalocytes Puncture Site Rb pCO2 50 H pO2 79 L HCO3 27.4 ABG pH 7.37 ABG Total CO2 30.4 H ABG O2 Saturation 97.7 ABG Base Excess 3.2 H ABG Hemoglobin 7.4 L ABG Carboxyhemoglobin 1.4 POC ABG HHb (Measured) 2.2 ABG Methemoglobin 1.2 Ravi Test Na A-a O2 Difference 144.0 Respiratory Index 1.8 Hgb O2 Saturation 95.3 Vent Mode Prvc Mechanical Rate 15 FiO2 40.0 Tidal Volume 450 PEEP 5 Sodium Potassium Chloride Carbon Dioxide Anion Gap BUN Creatinine Est GFR ( Amer) Est GFR (Non-Af Amer) POC Glucose (mg/dL) 222 H 255 H Random Glucose Calcium Phosphorus Magnesium Total Bilirubin AST ALT Alkaline Phosphatase Total Protein Albumin Globulin Albumin/Globulin Ratio 10/21/16 10/21/16 06:14 06:14 WBC 12.4 H RBC 2.70 L Hgb 7.5 L Hct 23.4 L MCV 86.5 MCH 27.6 MCHC 32.0 L RDW 17.9 H Plt Count 169 D MPV 8.3 Neut % (Auto) 82.8 H Lymph % (Auto) 8.5 L [place] % (Auto) 8.6 Eos % (Auto) 0.0 Baso % (Auto) 0.1 Neut # 10.3 H Lymph # 1.1 [place] # 1.1 H Eos # 0.0 Baso # 0.0 Neutrophils % (Manual) 87 H Band Neutrophils % 2 Lymphocytes % (Manual) 6 L Monocytes % (Manual) 5 Platelet Estimate Normal Polychromasia Slight Hypochromasia (manual) Slight Anisocytosis (manual) Slight Ovalocytes Slight Puncture Site pCO2 pO2 HCO3 ABG pH ABG Total CO2 ABG O2 Saturation ABG Base Excess ABG Hemoglobin ABG Carboxyhemoglobin POC ABG HHb (Measured) ABG Methemoglobin Ravi Test A-a O2 Difference Respiratory Index Hgb O2 Saturation Vent Mode Mechanical Rate FiO2 Tidal Volume PEEP Sodium 148 Potassium 3.6 Chloride 112 H Carbon Dioxide 27 Anion Gap 13 BUN 31 H Creatinine 0.8 Est GFR ( Amer) > 60 Est GFR (Non-Af Amer) > 60 POC Glucose (mg/dL) Random Glucose 189 H Calcium 7.7 L Phosphorus 3.2 Magnesium 1.7 Total Bilirubin 0.1 L AST 42 ALT 42 Alkaline Phosphatase 64 Total Protein 5.0 L Albumin 2.2 L Globulin 2.7 Albumin/Globulin Ratio 0.8 L Fingerstick Blood Sugar Results: 255 Review of Systems - Review of Systems Systems not reviewed;Unavailable: Intubated Critical Care Progress Note - Vent Settings TIDAL VOLUME:: 450 RESP RATE:: 15 FIO2:: 40 PEEP:: 5 - Nutrition Nutrition: Nutrition Category Date Time Status NPO Diet [DIET] Diets 10/15/16 Dinner Active Assessment/Plan - Assessment and Plan (Free Text) Assessment: S/p cardiac arrest, h/o nodular lung disease b/l, systolic and diastolic dysfunction heart failure, lbbb, dm, cerebral atrophy, weakness, was found unresponsive ROSC after 28 mins of ACLS protocol, s/p therapeutic hypothermia, remains completely unresponsive. Neuro - S/p cardiac arrest with severe anoxic brain injury GCS 3 Case discussed with Neurology, prognosis poor Case discussed with ethics committee, case management, will attempt to attain emergent guardianship Patient previously at [facility] and will request records to locate any family contacts Pulm - RUL aspiration pneumonia 10/17 sputum culture: Serratia marcesans positive Continue Zosyn and Vanco antibiotics Continues to be on ventilation due to anoxic brain injury Cardio - Continue Eliquis, ASA, Crestor 10/20/16 Triple lumen catheter inserted in Left internal jugular: remains in place and c/d/i. Endo - Hypothyroidism, DM Continue Synthroid Psych - Continue Divalproex Versed 1 mg PRN Uro - Continue Tamsulosin Continue to monitor urine output Prophylaxis Protonix Acetaminophen 650mg Q6 prn <James Mclean S - Last Filed: 10/21/16 16:25> CCU Objective - Vital Signs / Intake & Output Vital Signs (Last 4 hours): Vital Signs Pulse Resp BP Pulse Ox 10/21/16 15:00 152 H 26 H 98 10/21/16 14:00 87 27 H 98 10/21/16 13:53 90 26 H 83/52 L 98 10/21/16 13:00 88 26 H 97 10/21/16 12:51 89 24 118/58 L 97 Intake and Output (Last 8hrs): Intake & Output 10/21/16 10/21/16 10/21/16 06:59 14:59 22:59 Intake Total 440 500 0 Output Total 400 393 40 Balance 40 107 -40 Intake: Intake, IV Amount 200 350 Left Distal Port Internal 350 Jugular Left Foot 200 Tube Feeding 240 150 0 Output: Urine 400 390 40 Urethral (Barrett) 400 390 40 Stool 3 0 - Medications Active Medications: Active Medications Generic Name Dose Route Start Last Admin Trade Name Freq PRN Reason Stop Dose Admin Acetaminophen 650 mg 10/18/16 20:15 10/20/16 22:54 Tylenol 650mg/20.3ml Solution Ud PO 650 mg Q6 PRN Administration Pain, moderate (4-7) Apixaban 2.5 mg 09/23/16 10:00 10/21/16 11:27 Eliquis PO 2.5 mg BID ARTURO Administration Aspirin 81 mg 09/16/16 10:30 10/21/16 11:27 Aspirin Chewable PO 81 mg DAILY ARTURO Administration Divalproex Sodium 125 mg 09/16/16 10:30 10/21/16 11:27 Depakote Sprinkles PO 125 mg BID ARTURO Administration Piperacillin Sod/Tazobactam 100 mls @ 200 mls/hr 10/15/16 10:00 10/21/16 04: 00 Sod 3.375 gm/ Sodium Chloride IVPB 200 mls/hr Q6H ARTURO Administration Vancomycin HCl 750 mg/ Sodium 250 mls @ 166.6 mls/hr 10/15/16 10:00 10/21/16 11:27 Chloride IVPB 166.6 mls/hr Q12H ARTURO Administration Levothyroxine Sodium 37.5 mcg 09/30/16 06:30 10/21/16 05:29 Synthroid PO 37.5 mcg DAILY@0630 ARTURO Administration Midazolam HCl 1 mg 10/15/16 08:14 10/21/16 00:30 Versed Inj IVP 1 mg Q1H PRN Administration Seizure activity Pantoprazole Sodium 40 mg 10/19/16 10:00 10/21/16 11:27 Protonix Susp GT 40 mg DAILY ARTURO Administration Rosuvastatin Calcium 5 mg 09/29/16 22:00 10/20/16 22:48 Crestor PO 5 mg HS ARTURO Administration Tamsulosin HCl 0.4 mg 09/16/16 10:30 10/21/16 11:27 Flomax PO 0.4 mg DAILY ARUTRO Administration - Patient Studies Lab Studies: Lab Studies 10/21/16 10/21/16 10/21/16 Range/Units 12:21 06:14 06:14 WBC 12.4 H (4.8-10.8) K/uL RBC 2.70 L (4.40-5.90) Mil/uL Hgb 7.5 L (12.0-18.0) g/dL Hct 23.4 L (35.0-51.0) % MCV 86.5 (80.0-94.0) fL MCH 27.6 (27.0-31.0) pg MCHC 32.0 L (33.0-37.0) g/dL RDW 17.9 H (11.5-14.5) % Plt Count 169 D (130-400) K/uL MPV 8.3 (7.2-11.7) fL Neut % (Auto) 82.8 H (50.0-75.0) % Lymph % (Auto) 8.5 L (20.0-40.0) % [place] % (Auto) 8.6 (0.0-10.0) % Eos % (Auto) 0.0 (0.0-4.0) % Baso % (Auto) 0.1 (0.0-2.0) % Neut # 10.3 H (1.8-7.0) K/uL Lymph # 1.1 (1.0-4.3) K/uL [place] # 1.1 H (0.0-0.8) K/uL Eos # 0.0 (0.0-0.7) K/uL Baso # 0.0 (0.0-0.2) K/uL Neutrophils % (Manual) 87 H (50-75) % Band Neutrophils % 2 (0-2) % Lymphocytes % (Manual) 6 L (20-40) % Monocytes % (Manual) 5 (0-10) % Platelet Estimate Normal (NORMAL) Polychromasia Slight Hypochromasia (manual) Slight Anisocytosis (manual) Slight Ovalocytes Slight Puncture Site pCO2 (35-45) mm/Hg pO2 (80-100) mm/Hg HCO3 (21-28) mmol/L ABG pH (7.35-7.45) ABG Total CO2 (22-28) mmol/L ABG O2 Saturation (95-98) % ABG Base Excess (-2.0-3.0) mmol/L ABG Hemoglobin (11.7-17.4) g/dL ABG Carboxyhemoglobin (0.5-1.5) % POC ABG HHb (Measured) (0.0-5.0) % ABG Methemoglobin (0.0-3.0) % Ravi Test A-a O2 Difference mm/Hg Respiratory Index Hgb O2 Saturation (95.0-98.0) % Vent Mode Mechanical Rate FiO2 % Tidal Volume PEEP Sodium 148 (132-148) mmol/L Potassium 3.6 (3.6-5.2) mmol/L Chloride 112 H (98-107) mmol/L Carbon Dioxide 27 (22-30) mmol/L Anion Gap 13 (10-20) BUN 31 H (9-20) mg/dL Creatinine 0.8 (0.8-1.5) MG/DL Est GFR ( Amer) > 60 Est GFR (Non-Af Amer) > 60 POC Glucose (mg/dL) 159 H (65-110) mg/dL Random Glucose 189 H (75-110) mg/dL Calcium 7.7 L (8.6-10.4) mg/dl Phosphorus 3.2 (2.5-4.5) mg/dL Magnesium 1.7 (1.6-2.3) mg/dL Total Bilirubin 0.1 L (0.2-1.3) mg/dL AST 42 (17-59) U/L ALT 42 (21-72) U/L Alkaline Phosphatase 64 (38-126) U/L Total Protein 5.0 L (6.3-8.3) g/dL Albumin 2.2 L (3.5-5.0) g/dL Globulin 2.7 (2.2-3.9) gm/dL Albumin/Globulin Ratio 0.8 L (1.0-2.1) 10/21/16 10/21/16 10/20/16 Range/Units 06:13 05:34 23:32 WBC (4.8-10.8) K/uL RBC (4.40-5.90) Mil/uL Hgb (12.0-18.0) g/dL Hct (35.0-51.0) % MCV (80.0-94.0) fL MCH (27.0-31.0) pg MCHC (33.0-37.0) g/dL RDW (11.5-14.5) % Plt Count (130-400) K/uL MPV (7.2-11.7) fL Neut % (Auto) (50.0-75.0) % Lymph % (Auto) (20.0-40.0) % [place] % (Auto) (0.0-10.0) % Eos % (Auto) (0.0-4.0) % Baso % (Auto) (0.0-2.0) % Neut # (1.8-7.0) K/uL Lymph # (1.0-4.3) K/uL [place] # (0.0-0.8) K/uL Eos # (0.0-0.7) K/uL Baso # (0.0-0.2) K/uL Neutrophils % (Manual) (50-75) % Band Neutrophils % (0-2) % Lymphocytes % (Manual) (20-40) % Monocytes % (Manual) (0-10) % Platelet Estimate (NORMAL) Polychromasia Hypochromasia (manual) Anisocytosis (manual) Ovalocytes Puncture Site Rb pCO2 50 H (35-45) mm/Hg pO2 79 L (80-100) mm/Hg HCO3 27.4 (21-28) mmol/L ABG pH 7.37 (7.35-7.45) ABG Total CO2 30.4 H (22-28) mmol/L ABG O2 Saturation 97.7 (95-98) % ABG Base Excess 3.2 H (-2.0-3.0) mmol/L ABG Hemoglobin 7.4 L (11.7-17.4) g/dL ABG Carboxyhemoglobin 1.4 (0.5-1.5) % POC ABG HHb (Measured) 2.2 (0.0-5.0) % ABG Methemoglobin 1.2 (0.0-3.0) % Ravi Test Na A-a O2 Difference 144.0 mm/Hg Respiratory Index 1.8 Hgb O2 Saturation 95.3 (95.0-98.0) % Vent Mode Prvc Mechanical Rate 15 FiO2 40.0 % Tidal Volume 450 PEEP 5 Sodium (132-148) mmol/L Potassium (3.6-5.2) mmol/L Chloride (98-107) mmol/L Carbon Dioxide (22-30) mmol/L Anion Gap (10-20) BUN (9-20) mg/dL Creatinine (0.8-1.5) MG/DL Est GFR ( Amer) Est GFR (Non-Af Amer) POC Glucose (mg/dL) 255 H 222 H (65-110) mg/dL Random Glucose (75-110) mg/dL Calcium (8.6-10.4) mg/dl Phosphorus (2.5-4.5) mg/dL Magnesium (1.6-2.3) mg/dL Total Bilirubin (0.2-1.3) mg/dL AST (17-59) U/L ALT (21-72) U/L Alkaline Phosphatase (38-126) U/L Total Protein (6.3-8.3) g/dL Albumin (3.5-5.0) g/dL Globulin (2.2-3.9) gm/dL Albumin/Globulin Ratio (1.0-2.1) 10/20/16 10/20/16 Range/Units 17:40 16:57 WBC (4.8-10.8) K/uL RBC (4.40-5.90) Mil/uL Hgb (12.0-18.0) g/dL Hct (35.0-51.0) % MCV (80.0-94.0) fL MCH (27.0-31.0) pg MCHC (33.0-37.0) g/dL RDW (11.5-14.5) % Plt Count (130-400) K/uL MPV (7.2-11.7) fL Neut % (Auto) (50.0-75.0) % Lymph % (Auto) (20.0-40.0) % [place] % (Auto) (0.0-10.0) % Eos % (Auto) (0.0-4.0) % Baso % (Auto) (0.0-2.0) % Neut # (1.8-7.0) K/uL Lymph # (1.0-4.3) K/uL [place] # (0.0-0.8) K/uL Eos # (0.0-0.7) K/uL Baso # (0.0-0.2) K/uL Neutrophils % (Manual) (50-75) % Band Neutrophils % (0-2) % Lymphocytes % (Manual) (20-40) % Monocytes % (Manual) (0-10) % Platelet Estimate (NORMAL) Polychromasia Hypochromasia (manual) Anisocytosis (manual) Ovalocytes Puncture Site pCO2 (35-45) mm/Hg pO2 (80-100) mm/Hg HCO3 (21-28) mmol/L ABG pH (7.35-7.45) ABG Total CO2 (22-28) mmol/L ABG O2 Saturation (95-98) % ABG Base Excess (-2.0-3.0) mmol/L ABG Hemoglobin (11.7-17.4) g/dL ABG Carboxyhemoglobin (0.5-1.5) % POC ABG HHb (Measured) (0.0-5.0) % ABG Methemoglobin (0.0-3.0) % Ravi Test A-a O2 Difference mm/Hg Respiratory Index Hgb O2 Saturation (95.0-98.0) % Vent Mode Mechanical Rate FiO2 % Tidal Volume PEEP Sodium (132-148) mmol/L Potassium (3.6-5.2) mmol/L Chloride (98-107) mmol/L Carbon Dioxide (22-30) mmol/L Anion Gap (10-20) BUN (9-20) mg/dL Creatinine (0.8-1.5) MG/DL Est GFR ( Amer) Est GFR (Non-Af Amer) POC Glucose (mg/dL) 190 H 98 (65-110) mg/dL Random Glucose (75-110) mg/dL Calcium (8.6-10.4) mg/dl Phosphorus (2.5-4.5) mg/dL Magnesium (1.6-2.3) mg/dL Total Bilirubin (0.2-1.3) mg/dL AST (17-59) U/L ALT (21-72) U/L Alkaline Phosphatase (38-126) U/L Total Protein (6.3-8.3) g/dL Albumin (3.5-5.0) g/dL Globulin (2.2-3.9) gm/dL Albumin/Globulin Ratio (1.0-2.1) Laboratory Results - last 24 hr 10/20/16 10/20/16 10/20/16 16:57 17:40 23:32 WBC RBC Hgb Hct MCV MCH MCHC RDW Plt Count MPV Neut % (Auto) Lymph % (Auto) [place] % (Auto) Eos % (Auto) Baso % (Auto) Neut # Lymph # [place] # Eos # Baso # Neutrophils % (Manual) Band Neutrophils % Lymphocytes % (Manual) Monocytes % (Manual) Platelet Estimate Polychromasia Hypochromasia (manual) Anisocytosis (manual) Ovalocytes Puncture Site pCO2 pO2 HCO3 ABG pH ABG Total CO2 ABG O2 Saturation ABG Base Excess ABG Hemoglobin ABG Carboxyhemoglobin POC ABG HHb (Measured) ABG Methemoglobin Ravi Test A-a O2 Difference Respiratory Index Hgb O2 Saturation Vent Mode Mechanical Rate FiO2 Tidal Volume PEEP Sodium Potassium Chloride Carbon Dioxide Anion Gap BUN Creatinine Est GFR ( Amer) Est GFR (Non-Af Amer) POC Glucose (mg/dL) 98 190 H 222 H Random Glucose Calcium Phosphorus Magnesium Total Bilirubin AST ALT Alkaline Phosphatase Total Protein Albumin Globulin Albumin/Globulin Ratio 10/21/16 10/21/16 10/21/16 05:34 06:13 06:14 WBC 12.4 H RBC 2.70 L Hgb 7.5 L Hct 23.4 L MCV 86.5 MCH 27.6 MCHC 32.0 L RDW 17.9 H Plt Count 169 D MPV 8.3 Neut % (Auto) 82.8 H Lymph % (Auto) 8.5 L [place] % (Auto) 8.6 Eos % (Auto) 0.0 Baso % (Auto) 0.1 Neut # 10.3 H Lymph # 1.1 [place] # 1.1 H Eos # 0.0 Baso # 0.0 Neutrophils % (Manual) 87 H Band Neutrophils % 2 Lymphocytes % (Manual) 6 L Monocytes % (Manual) 5 Platelet Estimate Normal Polychromasia Slight Hypochromasia (manual) Slight Anisocytosis (manual) Slight Ovalocytes Slight Puncture Site Rb pCO2 50 H pO2 79 L HCO3 27.4 ABG pH 7.37 ABG Total CO2 30.4 H ABG O2 Saturation 97.7 ABG Base Excess 3.2 H ABG Hemoglobin 7.4 L ABG Carboxyhemoglobin 1.4 POC ABG HHb (Measured) 2.2 ABG Methemoglobin 1.2 Ravi Test Na A-a O2 Difference 144.0 Respiratory Index 1.8 Hgb O2 Saturation 95.3 Vent Mode Prvc Mechanical Rate 15 FiO2 40.0 Tidal Volume 450 PEEP 5 Sodium Potassium Chloride Carbon Dioxide Anion Gap BUN Creatinine Est GFR ( Amer) Est GFR (Non-Af Amer) POC Glucose (mg/dL) 255 H Random Glucose Calcium Phosphorus Magnesium Total Bilirubin AST ALT Alkaline Phosphatase Total Protein Albumin Globulin Albumin/Globulin Ratio 10/21/16 10/21/16 06:14 12:21 WBC RBC Hgb Hct MCV MCH MCHC RDW Plt Count MPV Neut % (Auto) Lymph % (Auto) [place] % (Auto) Eos % (Auto) Baso % (Auto) Neut # Lymph # [place] # Eos # Baso # Neutrophils % (Manual) Band Neutrophils % Lymphocytes % (Manual) Monocytes % (Manual) Platelet Estimate Polychromasia Hypochromasia (manual) Anisocytosis (manual) Ovalocytes Puncture Site pCO2 pO2 HCO3 ABG pH ABG Total CO2 ABG O2 Saturation ABG Base Excess ABG Hemoglobin ABG Carboxyhemoglobin POC ABG HHb (Measured) ABG Methemoglobin Ravi Test A-a O2 Difference Respiratory Index Hgb O2 Saturation Vent Mode Mechanical Rate FiO2 Tidal Volume PEEP Sodium 148 Potassium 3.6 Chloride 112 H Carbon Dioxide 27 Anion Gap 13 BUN 31 H Creatinine 0.8 Est GFR ( Amer) > 60 Est GFR (Non-Af Amer) > 60 POC Glucose (mg/dL) 159 H Random Glucose 189 H Calcium 7.7 L Phosphorus 3.2 Magnesium 1.7 Total Bilirubin 0.1 L AST 42 ALT 42 Alkaline Phosphatase 64 Total Protein 5.0 L Albumin 2.2 L Globulin 2.7 Albumin/Globulin Ratio 0.8 L Critical Care Progress Note - Nutrition Nutrition: Nutrition Category Date Time Status NPO Diet [DIET] Diets 10/15/16 Dinner Active Attending/Attestation - Attestation I have personally seen and examined this patient.: Yes I have fully participated in the care of the patient.: Yes I have reviewed all pertinent clinical information: Yes Notes (Text): 10/21/16 16:24 Patient seen and examined in the intensive care unit. Case discussed with house staff in the morning rounds. Remains intubated on ventilatory support No response to painful stimuli Triggering the ventilator noted Clinical examination not consistent with brain Being treated for pneumonia Awaiting for guardianship Prognosis poor
[2016-10-21] MEDS: Pantoprazole 40 mg Susp UD GT SCH (11:27)
[2016-10-21] MEDS: Divalproex 125 mg Sprinkle Capsule PO SCH ×2 (11:27→19:31)
[2016-10-21] MEDS: Acetaminophen 650mg/20.3ml solution UD PO PRN (16:00)
--- NOTE | 2016-10-21 22:03 | CP.PCM.PN ---
Subjective - Date & Time of Evaluation Date of Evaluation: 10/21/16 Time of Evaluation: 10:40 - Subjective Subjective: clinically same Objective - Vital Signs/Intake and Output Vital Signs (last 24 hours): Temp Pulse Resp BP Pulse Ox 99.6 F 133 H 27 H 173/119 H 99 10/21/16 20:00 10/21/16 20:50 10/21/16 20:50 10/21/16 20:51 10/21/16 20:50 Intake and Output: 10/21/16 10/22/16 18:59 06:59 Intake Total 690 60 Output Total 473 50 Balance 217 10 - Medications Medications: Current Medications Acetaminophen (Tylenol 650mg/20.3ml Solution Ud) 650 mg PO Q6 PRN PRN Reason: Pain, moderate (4-7) Last Admin: 10/21/16 16:00 Dose: 650 mg Apixaban (Eliquis) 2.5 mg PO BID [facility] Last Admin: 10/21/16 19:31 Dose: 2.5 mg Aspirin (Aspirin Chewable) 81 mg PO DAILY [facility] Last Admin: 10/21/16 11:27 Dose: 81 mg Divalproex Sodium (Depakote Sprinkles) 125 mg PO BID [facility] Last Admin: 10/21/16 19:31 Dose: 125 mg Piperacillin Sod/Tazobactam (Sod 3.375 gm/ Sodium Chloride) 100 mls @ 200 mls/ hr IVPB Q6H [facility] Last Admin: 10/21/16 16:32 Dose: 200 mls/hr Vancomycin HCl 750 mg/ Sodium (Chloride) 250 mls @ 166.6 mls/hr IVPB Q12H [facility] Last Admin: 10/21/16 11:27 Dose: 166.6 mls/hr Levothyroxine Sodium (Synthroid) 37.5 mcg PO DAILY@0630 [facility] Last Admin: 10/21/16 05:29 Dose: 37.5 mcg Midazolam HCl (Versed Inj) 1 mg IVP Q1H PRN PRN Reason: Seizure activity Last Admin: 10/21/16 17:12 Dose: 1 mg Pantoprazole Sodium (Protonix Susp) 40 mg GT DAILY [facility] Last Admin: 10/21/16 11:27 Dose: 40 mg Rosuvastatin Calcium (Crestor) 5 mg PO HS [facility] Last Admin: 10/20/16 22:48 Dose: 5 mg Tamsulosin HCl (Flomax) 0.4 mg PO DAILY [facility] Last Admin: 10/21/16 11:27 Dose: 0.4 mg - Labs Labs: 10/21/16 06:14 10/21/16 06:14 - Constitutional Appears: Well - Head Exam Head Exam: ATRAUMATIC, NORMAL INSPECTION, NORMOCEPHALIC - Eye Exam Eye Exam: EOMI, Normal appearance, PERRL Pupil Exam: NORMAL ACCOMODATION, PERRL - ENT Exam ENT Exam: Mucous Membranes Moist, Normal Exam - Neck Exam Neck Exam: Full ROM, Normal Inspection. absent: Lymphadenopathy - Respiratory Exam Respiratory Exam: Decreased Breath Sounds - Cardiovascular Exam Cardiovascular Exam: REGULAR RHYTHM, +S1, +S2 - GI/Abdominal Exam GI & Abdominal Exam: Soft, Diminished Bowel Sounds - Rectal Exam Rectal Exam: Deferred Assessment and Plan (1) Abnormal CXR (chest x-ray) Status: Acute (2) COPD (chronic obstructive pulmonary disease) Status: Acute (3) COPD exacerbation Status: Acute (4) Cardiac disease Status: Acute (5) Depression Status: Acute (6) Diabetes Status: Acute
[2016-10-22] MEDS: Piperacillin/Tazobact 3.375 GM in Sodium Chloride 100 ML IVPB SCH ×4 (03:28→22:00)
[2016-10-22] MEDS: Levothyroxine 75 MCG TAB PO SCH (06:53)
--- NOTE | 2016-10-22 07:35 | CP.CCUPN ---
<Aaron Herzog - Last Filed: 10/22/16 17:07> CCU Subjective - Physician Review Subjective (Free Text): Patient seen and examined at bedside. Case discussed with house staff in the morning. Subjective history not obtained as patient is intubated and unresponsive to painful stimuli. Triple lumen catheter inserted in Left internal jugular remains c/d/i. Patient with appearance of seizure activity - resolved after stat Ativan. 10/22/16 17:07 CCU Objective - Vital Signs / Intake & Output Vital Signs (Last 4 hours): Vital Signs Temp Pulse Resp BP Pulse Ox 10/22/16 06:53 123 H 21 132/109 H 10/22/16 05:53 108 H 22 86/69 L 10/22/16 04:51 23 96/72 L 10/22/16 04:00 99.2 F 97 10/22/16 03:53 128 H 23 127/70 83 L Intake and Output (Last 8hrs): Intake & Output 10/21/16 10/22/16 10/22/16 22:59 06:59 14:59 Intake Total 410 540 30 Output Total 170 240 30 Balance 240 300 0 Intake: Intake, IV Amount 200 300 Left Distal Port Internal 200 300 Jugular Tube Feeding 210 240 30 Output: Urine 170 240 30 Urethral (Barrett) 170 240 30 Stool 0 Other: # Bowel Movements 0 - Physical Exam Head: Positive for: Atraumatic, Normocephalic Pupils: Positive for: Non-Reactive, Pinpoint Ears: Positive for: Normal Neck: Negative for: JVD Respiratory/Chest: Positive for: Clear to Auscultation. Negative for: Wheezes, Rales Cardiovascular: Positive for: Regular Rate and Rhythm. Negative for: Murmurs Abdomen: Positive for: Normal Bowel Sounds Lower Extremity: Negative for: Edema Neurological: Positive for: Other (comatose) Psychiatric: Negative for: Alert - Medications Active Medications: Active Medications Generic Name Dose Route Start Last Admin Trade Name Freq PRN Reason Stop Dose Admin Acetaminophen 650 mg 10/18/16 20:15 10/21/16 16:00 Tylenol 650mg/20.3ml Solution Ud PO 650 mg Q6 PRN Administration Pain, moderate (4-7) Apixaban 2.5 mg 09/23/16 10:00 10/21/16 19:31 Eliquis PO 2.5 mg BID [facility] Administration Aspirin 81 mg 09/16/16 10:30 10/21/16 11:27 Aspirin Chewable PO 81 mg DAILY [facility] Administration Divalproex Sodium 125 mg 09/16/16 10:30 10/21/16 19:31 Depakote Sprinkles PO 125 mg BID [facility] Administration Piperacillin Sod/Tazobactam 100 mls @ 200 mls/hr 10/15/16 10:00 10/22/16 03: 28 Sod 3.375 gm/ Sodium Chloride IVPB 200 mls/hr Q6H [facility] Administration Vancomycin HCl 750 mg/ Sodium 250 mls @ 166.6 mls/hr 10/15/16 10:00 10/21/16 22:30 Chloride IVPB 166.6 mls/hr Q12H [facility] Administration Levothyroxine Sodium 37.5 mcg 09/30/16 06:30 10/22/16 06:53 Synthroid PO 37.5 mcg DAILY@0630 [facility] Administration Midazolam HCl 1 mg 10/15/16 08:14 10/21/16 17:12 Versed Inj IVP 1 mg Q1H PRN Administration Seizure activity Pantoprazole Sodium 40 mg 10/19/16 10:00 10/21/16 11:27 Protonix Susp GT 40 mg DAILY [facility] Administration Rosuvastatin Calcium 5 mg 09/29/16 22:00 10/21/16 23:16 Crestor PO 5 mg HS [facility] Administration Tamsulosin HCl 0.4 mg 09/16/16 10:30 10/21/16 11:27 Flomax PO 0.4 mg DAILY [facility] Administration - Patient Studies Lab Studies: Lab Studies 10/22/16 10/22/16 10/21/16 Range/Units 06:58 00:05 17:29 Neutrophils % (Manual) (50-75) % Band Neutrophils % (0-2) % Lymphocytes % (Manual) (20-40) % Monocytes % (Manual) (0-10) % Platelet Estimate (NORMAL) Polychromasia Hypochromasia (manual) Anisocytosis (manual) Ovalocytes POC Glucose (mg/dL) 109 181 H 152 H (65-110) mg/dL 10/21/16 10/21/16 Range/Units 12:21 06:14 Neutrophils % (Manual) 87 H (50-75) % Band Neutrophils % 2 (0-2) % Lymphocytes % (Manual) 6 L (20-40) % Monocytes % (Manual) 5 (0-10) % Platelet Estimate Normal (NORMAL) Polychromasia Slight Hypochromasia (manual) Slight Anisocytosis (manual) Slight Ovalocytes Slight POC Glucose (mg/dL) 159 H (65-110) mg/dL Laboratory Results - last 24 hr 10/21/16 10/21/16 10/21/16 06:14 12:21 17:29 Neutrophils % (Manual) 87 H Band Neutrophils % 2 Lymphocytes % (Manual) 6 L Monocytes % (Manual) 5 Platelet Estimate Normal Polychromasia Slight Hypochromasia (manual) Slight Anisocytosis (manual) Slight Ovalocytes Slight POC Glucose (mg/dL) 159 H 152 H 10/22/16 10/22/16 00:05 06:58 Neutrophils % (Manual) Band Neutrophils % Lymphocytes % (Manual) Monocytes % (Manual) Platelet Estimate Polychromasia Hypochromasia (manual) Anisocytosis (manual) Ovalocytes POC Glucose (mg/dL) 181 H 109 Fingerstick Blood Sugar Results: 109 Review of Systems - Review of Systems Systems not reviewed;Unavailable: Intubated Critical Care Progress Note - Vent Settings TIDAL VOLUME:: 450 RESP RATE:: 15 FIO2:: 40 PEEP:: 5 - Nutrition Nutrition: Nutrition Category Date Time Status NPO Diet [DIET] Diets 10/15/16 Dinner Active Assessment/Plan - Assessment and Plan (Free Text) Assessment: S/p cardiac arrest, h/o nodular lung disease b/l, systolic and diastolic dysfunction heart failure, lbbb, dm, cerebral atrophy, weakness, was found unresponsive ROSC after 28 mins of ACLS protocol, s/p therapeutic hypothermia, remains completely unresponsive. Today 10/22/16: Patient exhibiting seizure activity, resolved with Ativan 1mg. Still awaiting guardianship. Neuro - S/p cardiac arrest with severe anoxic brain injury GCS 3 Case discussed with Neurology, prognosis poor Case discussed with ethics committee, case management, will attempt to attain emergent guardianship Patient previously at [facility] and will request records to locate any family contacts - ativan 1mg q4 prn for seizure activity Pulm - RUL aspiration pneumonia 10/17 sputum culture: Serratia marcesans positive Continue Zosyn 3.375g iv q6 (started 10/15) and Vanco 750mg iv q12 (started 8/31 ) antibiotics Continues to be on ventilation due to anoxic brain injury Cardio - Continue Eliquis, ASA, Crestor 10/20/16 Triple lumen catheter inserted in Left internal jugular: remains in place and c/d/i. Endo - Hypothyroidism, DM Continue Synthroid GI - Tube Feed Psych - Continue Divalproex Uro - Continue Tamsulosin Continue to monitor urine output Prophylaxis - Protonix Eliquis <CristinafYinka M - Last Filed: 10/22/16 18:55> CCU Objective - Vital Signs / Intake & Output Vital Signs (Last 4 hours): Vital Signs Temp Pulse Resp BP Pulse Ox 10/22/16 18:00 127 H 20 100 10/22/16 17:51 140 H 20 128/104 H 100 10/22/16 17:00 163 H 20 95 10/22/16 16:51 159 H 21 157/130 H 100 10/22/16 16:00 97.5 F L 73 16 99 10/22/16 15:51 112 H 21 175/147 H 100 10/22/16 15:00 96 H 20 100 Intake and Output (Last 8hrs): Intake & Output 10/22/16 10/22/16 10/22/16 06:59 14:59 22:59 Intake Total 540 715 220 Output Total 240 280 120 Balance 300 435 100 Weight 127 lb Intake: Intake, IV Amount 300 475 100 Left Distal Port Internal 300 475 100 Jugular Tube Feeding 240 240 120 Output: Urine 240 280 120 Urethral (Barrett) 240 280 120 Emesis 0 0 Other: # Bowel Movements 0 0 - Medications Active Medications: Active Medications Generic Name Dose Route Start Last Admin Trade Name Elvira PRN Reason Stop Dose Admin Acetaminophen 650 mg 10/18/16 20:15 10/21/16 16:00 Tylenol 650mg/20.3ml Solution Ud PO 650 mg Q6 PRN Administration Pain, moderate (4-7) Apixaban 2.5 mg 09/23/16 10:00 10/22/16 17:40 Eliquis PO 2.5 mg BID [facility] Administration Aspirin 81 mg 09/16/16 10:30 10/22/16 09:53 Aspirin Chewable PO 81 mg DAILY [facility] Administration Divalproex Sodium 125 mg 09/16/16 10:30 10/22/16 17:40 Depakote Sprinkles PO 125 mg BID [facility] Administration Piperacillin Sod/Tazobactam 100 mls @ 200 mls/hr 10/15/16 10:00 10/22/16 16: 17 Sod 3.375 gm/ Sodium Chloride IVPB 200 mls/hr Q6H [facility] Administration Vancomycin HCl 750 mg/ Sodium 250 mls @ 166.6 mls/hr 10/15/16 10:00 10/22/16 10:30 Chloride IVPB 166.6 mls/hr Q12H [facility] Administration Levothyroxine Sodium 37.5 mcg 09/30/16 06:30 10/22/16 06:53 Synthroid PO 37.5 mcg DAILY@0630 [facility] Administration Lorazepam 1 mg 10/22/16 11:29 Ativan IVP Q4H PRN Seizure activity Pantoprazole Sodium 40 mg 10/19/16 10:00 10/22/16 09:53 Protonix Susp GT 40 mg DAILY [facility] Administration Rosuvastatin Calcium 5 mg 09/29/16 22:00 10/21/16 23:16 Crestor PO 5 mg HS [facility] Administration Tamsulosin HCl 0.4 mg 09/16/16 10:30 10/22/16 09:53 Flomax PO 0.4 mg DAILY [facility] Administration - Patient Studies Lab Studies: Lab Studies 10/22/16 10/22/16 10/22/16 Range/Units 17:50 06:58 00:05 POC Glucose (mg/dL) 247 H 109 181 H (65-110) mg/dL Laboratory Results - last 24 hr 10/22/16 10/22/16 10/22/16 00:05 06:58 17:50 POC Glucose (mg/dL) 181 H 109 247 H Critical Care Progress Note - Nutrition Nutrition: Nutrition Category Date Time Status NPO Diet [DIET] Diets 10/15/16 Dinner Active Attending/Attestation - Attestation I have personally seen and examined this patient.: Yes I have fully participated in the care of the patient.: Yes I have reviewed all pertinent clinical information: Yes Notes (Text): 10/22/16 18:55 Today: October The Patient was seen and examined at the bedside, Medical records reviewed, and management issues were discussed and formulated with the house staff. I have reviewed all the relevant clinical, laboratory, hemodynamic, radiographic data and medications Pain issues, skin care, head of the bed elevation, glycemic control were addressed. I concur with resident's assessment and plan of care as transcribed in Dr. Herzog note.
[2016-10-22] MEDS: Divalproex 125 mg Sprinkle Capsule PO SCH ×2 (09:53→17:40)
[2016-10-22] MEDS: Pantoprazole 40 mg Susp UD GT SCH (09:53)
--- NOTE | 2016-10-22 17:19 | CP.PCM.PN ---
Subjective - Date & Time of Evaluation Date of Evaluation: 10/22/16 Time of Evaluation: 11:20 - Subjective Subjective: clinically same Objective - Vital Signs/Intake and Output Vital Signs (last 24 hours): Temp Pulse Resp BP Pulse Ox 97.2 F L 96 H 20 172/142 H 100 10/22/16 12:00 10/22/16 15:00 10/22/16 15:00 10/22/16 12:51 10/22/16 15:00 Intake and Output: 10/22/16 10/22/16 06:59 18:59 Intake Total 760 775 Output Total 330 310 Balance 430 465 - Medications Medications: Current Medications Acetaminophen (Tylenol 650mg/20.3ml Solution Ud) 650 mg PO Q6 PRN PRN Reason: Pain, moderate (4-7) Last Admin: 10/21/16 16:00 Dose: 650 mg Apixaban (Eliquis) 2.5 mg PO BID [facility] Last Admin: 10/22/16 09:53 Dose: 2.5 mg Aspirin (Aspirin Chewable) 81 mg PO DAILY [facility] Last Admin: 10/22/16 09:53 Dose: 81 mg Divalproex Sodium (Depakote Sprinkles) 125 mg PO BID [facility] Last Admin: 10/22/16 09:53 Dose: 125 mg Piperacillin Sod/Tazobactam (Sod 3.375 gm/ Sodium Chloride) 100 mls @ 200 mls/ hr IVPB Q6H [facility] Last Admin: 10/22/16 16:17 Dose: 200 mls/hr Vancomycin HCl 750 mg/ Sodium (Chloride) 250 mls @ 166.6 mls/hr IVPB Q12H [facility] Last Admin: 10/22/16 10:30 Dose: 166.6 mls/hr Levothyroxine Sodium (Synthroid) 37.5 mcg PO DAILY@0630 [facility] Last Admin: 10/22/16 06:53 Dose: 37.5 mcg Lorazepam (Ativan) 1 mg IVP Q4H PRN PRN Reason: Seizure activity Pantoprazole Sodium (Protonix Susp) 40 mg GT DAILY [facility] Last Admin: 10/22/16 09:53 Dose: 40 mg Rosuvastatin Calcium (Crestor) 5 mg PO HS [facility] Last Admin: 10/21/16 23:16 Dose: 5 mg Tamsulosin HCl (Flomax) 0.4 mg PO DAILY [facility] Last Admin: 10/22/16 09:53 Dose: 0.4 mg - Labs Labs: 10/21/16 06:14 10/21/16 06:14 - Constitutional Appears: Well - Head Exam Head Exam: ATRAUMATIC, NORMAL INSPECTION, NORMOCEPHALIC - Eye Exam Eye Exam: EOMI, Normal appearance, PERRL Pupil Exam: NORMAL ACCOMODATION, PERRL - ENT Exam ENT Exam: Mucous Membranes Moist, Normal Exam - Neck Exam Neck Exam: Full ROM, Normal Inspection. absent: Lymphadenopathy - Respiratory Exam Respiratory Exam: Decreased Breath Sounds - Cardiovascular Exam Cardiovascular Exam: REGULAR RHYTHM, +S1, +S2 - GI/Abdominal Exam GI & Abdominal Exam: Soft, Diminished Bowel Sounds - Rectal Exam Rectal Exam: Deferred Assessment and Plan (1) Abnormal CXR (chest x-ray) Status: Acute (2) COPD (chronic obstructive pulmonary disease) Status: Acute (3) COPD exacerbation Status: Acute (4) Cardiac disease Status: Acute (5) Depression Status: Acute (6) Diabetes Status: Acute
[2016-10-23] MEDS: Piperacillin/Tazobact 3.375 GM in Sodium Chloride 100 ML IVPB SCH ×5 (04:00→21:06)
[2016-10-23] MEDS: Levothyroxine 75 MCG TAB PO SCH (06:48)
[2016-10-23] MEDS: Divalproex 125 mg Sprinkle Capsule PO SCH ×2 (09:34→17:20)
[2016-10-23] MEDS: Pantoprazole 40 mg Susp UD GT SCH (09:34)
--- NOTE | 2016-10-23 11:16 | CP.CCUPN ---
<Aaron Herzog - Last Filed: 10/23/16 11:13> CCU Subjective - Physician Review Subjective (Free Text): Patient seen and examined at bedside. Case discussed with house staff in the morning. Subjective history not obtained as patient is intubated and unresponsive to painful stimuli. Triple lumen catheter inserted in Left internal jugular remains c/d/i. 10/23/16 11:13 CCU Objective - Vital Signs / Intake & Output Vital Signs (Last 4 hours): Vital Signs Temp Pulse Resp BP Pulse Ox 10/23/16 10:00 83 18 10/23/16 09:50 105 H 17 180/57 H 10/23/16 09:00 119 H 19 10/23/16 08:50 109 H 20 168/75 H 76 L 10/23/16 08:00 98.8 F 98 H 22 96 10/23/16 07:50 148 H 21 163/55 H 92 L 10/23/16 07:43 126 H 22 171/60 H 99 Intake and Output (Last 8hrs): Intake & Output 10/22/16 10/23/16 10/23/16 22:59 06:59 14:59 Intake Total 440 590 400 Output Total 210 240 110 Balance 230 350 290 Weight 127 lb 4.8 oz Intake: Intake, IV Amount 200 350 100 Left Distal Port Internal 200 350 100 Jugular Oral 180 Tube Feeding 240 240 120 Output: Urine 210 240 110 Urethral (Barrett) 210 240 110 Emesis 0 Other: # Bowel Movements 0 0 - Physical Exam Head: Positive for: Atraumatic, Normocephalic Pupils: Positive for: Non-Reactive, Pinpoint Ears: Positive for: Normal Neck: Negative for: JVD Respiratory/Chest: Positive for: Clear to Auscultation. Negative for: Wheezes, Rales Cardiovascular: Positive for: Regular Rate and Rhythm. Negative for: Murmurs Abdomen: Positive for: Normal Bowel Sounds Lower Extremity: Negative for: Edema Neurological: Positive for: Other (comatose) Psychiatric: Negative for: Alert - Medications Active Medications: Active Medications Generic Name Dose Route Start Last Admin Trade Name Freq PRN Reason Stop Dose Admin Acetaminophen 650 mg 10/18/16 20:15 10/21/16 16:00 Tylenol 650mg/20.3ml Solution Ud PO 650 mg Q6 PRN Administration Pain, moderate (4-7) Aspirin 81 mg 09/16/16 10:30 10/23/16 09:34 Aspirin Chewable PO 81 mg DAILY [facility] Administration Divalproex Sodium 125 mg 09/16/16 10:30 10/23/16 09:34 Depakote Sprinkles PO 125 mg BID [facility] Administration Piperacillin Sod/Tazobactam 100 mls @ 200 mls/hr 10/15/16 10:00 10/23/16 10: 36 Sod 3.375 gm/ Sodium Chloride IVPB 200 mls/hr Q6H [facility] Administration Levothyroxine Sodium 37.5 mcg 09/30/16 06:30 10/23/16 06:48 Synthroid PO 37.5 mcg DAILY@0630 [facility] Administration Lorazepam 1 mg 10/22/16 11:29 10/23/16 09:34 Ativan IVP 1 mg Q4H PRN Administration Seizure activity Pantoprazole Sodium 40 mg 10/19/16 10:00 10/23/16 09:34 Protonix Susp GT 40 mg DAILY [facility] Administration Rosuvastatin Calcium 5 mg 09/29/16 22:00 10/22/16 22:49 Crestor PO 5 mg HS [facility] Administration Tamsulosin HCl 0.4 mg 09/16/16 10:30 10/23/16 09:34 Flomax PO 0.4 mg DAILY [facility] Administration - Patient Studies Lab Studies: Lab Studies 10/23/16 10/23/16 10/22/16 Range/Units 07:59 00:12 17:50 POC Glucose (mg/dL) 204 H 239 H 247 H (65-110) mg/dL Laboratory Results - last 24 hr 10/22/16 10/23/16 10/23/16 17:50 00:12 07:59 POC Glucose (mg/dL) 247 H 239 H 204 H Fingerstick Blood Sugar Results: 239 Review of Systems - Review of Systems Systems not reviewed;Unavailable: Intubated Critical Care Progress Note - Vent Settings MODE:: PRVC TIDAL VOLUME:: 450 RESP RATE:: 15 FIO2:: 40 PEEP:: 5 - Nutrition Nutrition: Nutrition Category Date Time Status NPO Diet [DIET] Diets 10/15/16 Dinner Active Assessment/Plan - Assessment and Plan (Free Text) Assessment: S/p cardiac arrest, h/o nodular lung disease b/l, systolic and diastolic dysfunction heart failure, lbbb, dm, cerebral atrophy, weakness, was found unresponsive ROSC after 28 mins of ACLS protocol, s/p therapeutic hypothermia, remains completely unresponsive. Today 10/23/16: Clinically unchanged. Still awaiting guardianship. Neuro - S/p cardiac arrest with severe anoxic brain injury GCS 3 Case discussed with Neurology, prognosis poor Case discussed with ethics committee, case management, will attempt to attain emergent guardianship Patient previously at [facility] and will request records to locate any family contacts - ativan 1mg q4 prn for seizure activity Pulm - RUL aspiration pneumonia 10/17 sputum culture: Serratia marcesans positive Continue Zosyn 3.375g iv q6 (started 10/15) and Vanco 750mg iv q12 (started 10/15 ) antibiotics Continues to be on ventilation due to anoxic brain injury Cardio - Continue Eliquis, ASA, Crestor 10/20/16 Triple lumen catheter inserted in Left internal jugular: remains in place and c/d/i. Endo - Hypothyroidism, DM Continue Synthroid GI - Tube Feed Psych - Continue Divalproex Uro - Continue Tamsulosin Continue to monitor urine output Prophylaxis - Protonix Eliquis <James Mclean S - Last Filed: 10/23/16 16:35> CCU Objective - Vital Signs / Intake & Output Vital Signs (Last 4 hours): Vital Signs Pulse Resp BP Pulse Ox 10/23/16 15:33 81 24 165/54 H 97 10/23/16 15:00 80 25 H 99 10/23/16 14:50 78 24 182/56 H 99 10/23/16 14:00 73 20 99 10/23/16 13:50 79 23 166/52 H 99 10/23/16 13:00 73 17 100 10/23/16 12:50 72 20 160/55 H 100 Intake and Output (Last 8hrs): Intake & Output 10/23/16 10/23/16 10/23/16 06:59 14:59 22:59 Intake Total 590 550 30 Output Total 240 270 40 Balance 350 280 -10 Weight 127 lb 4.8 oz Intake: Intake, IV Amount 350 100 0 Left Distal Port Internal 350 100 0 Jugular Oral 210 Tube Feeding 240 240 30 Output: Urine 240 270 40 Urethral (Barrett) 240 270 40 Other: # Bowel Movements 0 0 - Medications Active Medications: Active Medications Generic Name Dose Route Start Last Admin Trade Name Freq PRN Reason Stop Dose Admin Acetaminophen 650 mg 10/18/16 20:15 10/21/16 16:00 Tylenol 650mg/20.3ml Solution Ud PO 650 mg Q6 PRN Administration Pain, moderate (4-7) Aspirin 81 mg 09/16/16 10:30 10/23/16 09:34 Aspirin Chewable PO 81 mg DAILY [facility] Administration Divalproex Sodium 125 mg 09/16/16 10:30 10/23/16 09:34 Depakote Sprinkles PO 125 mg BID [facility] Administration Piperacillin Sod/Tazobactam 100 mls @ 200 mls/hr 10/15/16 10:00 10/23/16 16: 30 Sod 3.375 gm/ Sodium Chloride IVPB 200 mls/hr Q6H [facility] Administration Levothyroxine Sodium 37.5 mcg 09/30/16 06:30 10/23/16 06:48 Synthroid PO 37.5 mcg DAILY@0630 [facility] Administration Lorazepam 1 mg 10/22/16 11:29 10/23/16 09:34 Ativan IVP 1 mg Q4H PRN Administration Seizure activity Pantoprazole Sodium 40 mg 10/19/16 10:00 10/23/16 09:34 Protonix Susp GT 40 mg DAILY [facility] Administration Rosuvastatin Calcium 5 mg 09/29/16 22:00 10/22/16 22:49 Crestor PO 5 mg HS [facility] Administration Tamsulosin HCl 0.4 mg 09/16/16 10:30 10/23/16 09:34 Flomax PO 0.4 mg DAILY [facility] Administration - Patient Studies Lab Studies: Lab Studies 10/23/16 10/23/16 10/23/16 Range/Units 11:24 07:59 00:12 POC Glucose (mg/dL) 265 H 204 H 239 H (65-110) mg/dL 10/22/16 Range/Units 17:50 POC Glucose (mg/dL) 247 H (65-110) mg/dL Laboratory Results - last 24 hr 10/22/16 10/23/16 10/23/16 17:50 00:12 07:59 POC Glucose (mg/dL) 247 H 239 H 204 H 10/23/16 11:24 POC Glucose (mg/dL) 265 H Critical Care Progress Note - Nutrition Nutrition: Nutrition Category Date Time Status NPO Diet [DIET] Diets 10/15/16 Dinner Active Attending/Attestation - Attestation I have personally seen and examined this patient.: Yes I have fully participated in the care of the patient.: Yes I have reviewed all pertinent clinical information: Yes Notes (Text): 10/23/16 16:32 Patient seen and examined in the intensive care unit. Case discussed with house staff in the morning rounds. Remains on ventilatory support Awaiting guardianship Prognosis poor No change in patient's condition
--- NOTE | 2016-10-23 19:14 | CP.PCM.PN ---
Subjective - Date & Time of Evaluation Date of Evaluation: 10/23/16 Time of Evaluation: 12:20 - Subjective Subjective: clinically same Objective - Vital Signs/Intake and Output Vital Signs (last 24 hours): Temp Pulse Resp BP Pulse Ox 98.1 F 76 19 183/57 H 99 10/23/16 16:00 10/23/16 18:00 10/23/16 18:00 10/23/16 17:50 10/23/16 18:00 Intake and Output: 10/23/16 10/24/16 18:59 06:59 Intake Total 820 Output Total 430 Balance 390 - Medications Medications: Current Medications Acetaminophen (Tylenol 650mg/20.3ml Solution Ud) 650 mg PO Q6 PRN PRN Reason: Pain, moderate (4-7) Last Admin: 10/21/16 16:00 Dose: 650 mg Aspirin (Aspirin Chewable) 81 mg PO DAILY [facility] Last Admin: 10/23/16 09:34 Dose: 81 mg Divalproex Sodium (Depakote Sprinkles) 125 mg PO BID [facility] Last Admin: 10/23/16 17:20 Dose: 125 mg Piperacillin Sod/Tazobactam (Sod 3.375 gm/ Sodium Chloride) 100 mls @ 200 mls/ hr IVPB Q6H [facility] Last Admin: 10/23/16 16:30 Dose: 200 mls/hr Levothyroxine Sodium (Synthroid) 37.5 mcg PO DAILY@0630 [facility] Last Admin: 10/23/16 06:48 Dose: 37.5 mcg Lorazepam (Ativan) 1 mg IVP Q4H PRN PRN Reason: Seizure activity Last Admin: 10/23/16 17:24 Dose: 1 mg Pantoprazole Sodium (Protonix Susp) 40 mg GT DAILY [facility] Last Admin: 10/23/16 09:34 Dose: 40 mg Rosuvastatin Calcium (Crestor) 5 mg PO HS [facility] Last Admin: 10/22/16 22:49 Dose: 5 mg Tamsulosin HCl (Flomax) 0.4 mg PO DAILY [facility] Last Admin: 10/23/16 09:34 Dose: 0.4 mg - Labs Labs: 10/21/16 06:14 10/21/16 06:14 - Constitutional Appears: Well - Head Exam Head Exam: ATRAUMATIC, NORMAL INSPECTION, NORMOCEPHALIC - Eye Exam Eye Exam: EOMI, Normal appearance, PERRL Pupil Exam: NORMAL ACCOMODATION, PERRL - ENT Exam ENT Exam: Mucous Membranes Moist, Normal Exam - Neck Exam Neck Exam: Full ROM, Normal Inspection. absent: Lymphadenopathy - Respiratory Exam Respiratory Exam: Decreased Breath Sounds - Cardiovascular Exam Cardiovascular Exam: REGULAR RHYTHM, +S1, +S2 - GI/Abdominal Exam GI & Abdominal Exam: Soft, Diminished Bowel Sounds - Rectal Exam Rectal Exam: Deferred Assessment and Plan (1) Abnormal CXR (chest x-ray) Status: Acute (2) COPD (chronic obstructive pulmonary disease) Status: Acute (3) COPD exacerbation Status: Acute (4) Cardiac disease Status: Acute (5) Depression Status: Acute (6) Diabetes Status: Acute
[2016-10-24] MEDS: Piperacillin/Tazobact 3.375 GM in Sodium Chloride 100 ML IVPB SCH ×4 (03:35→22:06)
[2016-10-24] MEDS: Levothyroxine 75 MCG TAB PO SCH (05:36)
[2016-10-24] MEDS: Divalproex 125 mg Sprinkle Capsule PO SCH ×2 (09:40→17:09)
[2016-10-24] MEDS: Pantoprazole 40 mg Susp UD GT SCH (09:40)
--- NOTE | 2016-10-24 15:50 | CP.PCM.PN ---
Subjective - Date & Time of Evaluation Date of Evaluation: 10/24/16 Time of Evaluation: 13:40 - Subjective Subjective: clinically same Objective - Vital Signs/Intake and Output Vital Signs (last 24 hours): Temp Pulse Resp BP Pulse Ox 97.7 F 88 26 H 158/57 H 98 10/24/16 12:00 10/24/16 15:00 10/24/16 15:00 10/24/16 14:50 10/24/16 15:00 Intake and Output: 10/24/16 10/24/16 06:59 18:59 Intake Total 510 600 Output Total 520 310 Balance -10 290 - Medications Medications: Current Medications Acetaminophen (Tylenol 650mg/20.3ml Solution Ud) 650 mg PO Q6 PRN PRN Reason: Pain, moderate (4-7) Last Admin: 10/21/16 16:00 Dose: 650 mg Apixaban (Eliquis) 2.5 mg PO Q12 [facility] Last Admin: 10/24/16 09:40 Dose: 2.5 mg Aspirin (Aspirin Chewable) 81 mg PO DAILY [facility] Last Admin: 10/24/16 09:40 Dose: 81 mg Divalproex Sodium (Depakote Sprinkles) 125 mg PO BID [facility] Last Admin: 10/24/16 09:40 Dose: 125 mg Piperacillin Sod/Tazobactam (Sod 3.375 gm/ Sodium Chloride) 100 mls @ 200 mls/ hr IVPB Q6H [facility] Last Admin: 10/24/16 15:21 Dose: 200 mls/hr Levothyroxine Sodium (Synthroid) 37.5 mcg PO DAILY@0630 [facility] Last Admin: 10/24/16 05:36 Dose: 37.5 mcg Lorazepam (Ativan) 1 mg IVP Q4H PRN PRN Reason: Seizure activity Last Admin: 10/24/16 15:33 Dose: 1 mg Pantoprazole Sodium (Protonix Susp) 40 mg GT DAILY [facility] Last Admin: 10/24/16 09:40 Dose: 40 mg Rosuvastatin Calcium (Crestor) 5 mg PO HS [facility] Last Admin: 10/23/16 21:06 Dose: 5 mg Tamsulosin HCl (Flomax) 0.4 mg PO DAILY [facility] Last Admin: 10/24/16 09:40 Dose: 0.4 mg - Labs Labs: 10/21/16 06:14 10/21/16 06:14 - Constitutional Appears: Well - Head Exam Head Exam: ATRAUMATIC, NORMAL INSPECTION, NORMOCEPHALIC - Eye Exam Eye Exam: EOMI, Normal appearance, PERRL Pupil Exam: NORMAL ACCOMODATION, PERRL - ENT Exam ENT Exam: Mucous Membranes Moist, Normal Exam - Neck Exam Neck Exam: Full ROM, Normal Inspection. absent: Lymphadenopathy - Respiratory Exam Respiratory Exam: Decreased Breath Sounds - Cardiovascular Exam Cardiovascular Exam: REGULAR RHYTHM, +S1, +S2 - GI/Abdominal Exam GI & Abdominal Exam: Soft, Diminished Bowel Sounds - Rectal Exam Rectal Exam: Deferred Assessment and Plan (1) Abnormal CXR (chest x-ray) Status: Acute (2) COPD (chronic obstructive pulmonary disease) Status: Acute (3) COPD exacerbation Status: Acute (4) Cardiac disease Status: Acute (5) Depression Status: Acute (6) Diabetes Status: Acute
--- NOTE | 2016-10-24 18:40 | CP.CCUPN ---
CCU Subjective - Physician Review Events Since Last Encounter (Free Text): 10/25/16 16:35 Patient is currently anoxic encephalopathy, on ventilator. There is no next of kin. Patient is currently very poor prognostic symptoms. He is unresponsive. Awaiting for guardianship. Risk management. Overall prognosis very poor. CCU Objective - Vital Signs / Intake & Output Vital Signs (Last 4 hours): Vital Signs Temp Pulse Resp BP Pulse Ox 10/24/16 18:00 79 25 H 98 10/24/16 17:50 83 26 H 143/52 L 98 10/24/16 17:00 87 27 H 98 10/24/16 16:50 80 15 134/50 L 97 10/24/16 16:00 97.6 F 84 24 96 10/24/16 15:51 85 26 H 128/50 L 94 L 10/24/16 15:00 88 26 H 98 10/24/16 14:50 87 26 H 158/57 H 98 Intake and Output (Last 8hrs): Intake & Output 10/24/16 10/24/16 10/24/16 06:59 14:59 22:59 Intake Total 240 570 250 Output Total 340 280 100 Balance -100 290 150 Weight 127 lb 8 oz Intake: Intake, IV Amount 100 100 Left Distal Port Internal 100 100 Jugular Oral 230 30 Tube Feeding 240 240 120 Output: Urine 340 280 100 Urethral (Barrett) 340 280 100 Other: # Bowel Movements 0 0 - Physical Exam Head: Positive for: Atraumatic, Normocephalic Pupils: Positive for: Non-Reactive, Pinpoint Ears: Positive for: Normal Neck: Negative for: JVD Respiratory/Chest: Positive for: Clear to Auscultation. Negative for: Wheezes, Rales Cardiovascular: Positive for: Regular Rate and Rhythm. Negative for: Murmurs Abdomen: Positive for: Normal Bowel Sounds Lower Extremity: Negative for: Edema Neurological: Positive for: Other (comatose) Psychiatric: Negative for: Alert - Medications Active Medications: Active Medications Generic Name Dose Route Start Last Admin Trade Name Freq PRN Reason Stop Dose Admin Acetaminophen 650 mg 10/18/16 20:15 10/21/16 16:00 Tylenol 650mg/20.3ml Solution Ud PO 650 mg Q6 PRN Administration Pain, moderate (4-7) Apixaban 2.5 mg 10/23/16 22:00 10/24/16 09:40 Eliquis PO 2.5 mg Q12 [facility] Administration Aspirin 81 mg 09/16/16 10:30 10/24/16 09:40 Aspirin Chewable PO 81 mg DAILY [facility] Administration Divalproex Sodium 125 mg 09/16/16 10:30 10/24/16 17:09 Depakote Sprinkles PO 125 mg BID [facility] Administration Piperacillin Sod/Tazobactam 100 mls @ 200 mls/hr 10/15/16 10:00 10/24/16 15: 21 Sod 3.375 gm/ Sodium Chloride IVPB 200 mls/hr Q6H [facility] Administration Levothyroxine Sodium 37.5 mcg 09/30/16 06:30 10/24/16 05:36 Synthroid PO 37.5 mcg DAILY@0630 [facility] Administration Lorazepam 1 mg 10/22/16 11:29 10/24/16 15:33 Ativan IVP 1 mg Q4H PRN Administration Seizure activity Pantoprazole Sodium 40 mg 10/19/16 10:00 10/24/16 09:40 Protonix Susp GT 40 mg DAILY [facility] Administration Rosuvastatin Calcium 5 mg 09/29/16 22:00 10/23/16 21:06 Crestor PO 5 mg HS [facility] Administration Tamsulosin HCl 0.4 mg 09/16/16 10:30 10/24/16 09:40 Flomax PO 0.4 mg DAILY [facility] Administration - Patient Studies Lab Studies: Lab Studies 10/24/16 10/24/16 10/24/16 Range/Units 17:55 11:44 05:16 POC Glucose (mg/dL) 226 H 236 H 328 H (65-110) mg/dL 10/23/16 Range/Units 23:47 POC Glucose (mg/dL) 226 H (65-110) mg/dL Laboratory Results - last 24 hr 10/23/16 10/24/16 10/24/16 23:47 05:16 11:44 POC Glucose (mg/dL) 226 H 328 H 236 H 10/24/16 17:55 POC Glucose (mg/dL) 226 H Fingerstick Blood Sugar Results: 226 Critical Care Progress Note - Nutrition Nutrition: Nutrition Category Date Time Status NPO Diet [DIET] Diets 10/15/16 Dinner Active
[2016-10-25] MEDS: Piperacillin/Tazobact 3.375 GM in Sodium Chloride 100 ML IVPB SCH ×4 (04:12→22:20)
[2016-10-25] MEDS: Levothyroxine 75 MCG TAB PO SCH (06:40)
[2016-10-25] MEDS: Divalproex 125 mg Sprinkle Capsule PO SCH ×2 (10:33→18:00)
[2016-10-25] MEDS: Pantoprazole 40 mg Susp UD GT SCH (10:33)
--- NOTE | 2016-10-25 11:17 | CP.PCM.PN ---
Subjective - Date & Time of Evaluation Date of Evaluation: 10/25/16 Time of Evaluation: 11:00 - Subjective Subjective: clinically same Objective - Vital Signs/Intake and Output Vital Signs (last 24 hours): Temp Pulse Resp BP Pulse Ox 98.5 F 84 27 H 146/58 L 96 10/25/16 08:00 10/25/16 11:00 10/25/16 11:00 10/25/16 10:50 10/25/16 11:00 Intake and Output: 10/25/16 10/25/16 06:59 18:59 Intake Total 660 280 Output Total 350 290 Balance 310 -10 - Medications Medications: Current Medications Acetaminophen (Tylenol 650mg/20.3ml Solution Ud) 650 mg PO Q6 PRN PRN Reason: Pain, moderate (4-7) Last Admin: 10/21/16 16:00 Dose: 650 mg Apixaban (Eliquis) 2.5 mg PO Q12 [facility] Last Admin: 10/25/16 10:33 Dose: 2.5 mg Aspirin (Aspirin Chewable) 81 mg PO DAILY [facility] Last Admin: 10/25/16 10:33 Dose: 81 mg Divalproex Sodium (Depakote Sprinkles) 125 mg PO BID [facility] Last Admin: 10/25/16 10:33 Dose: 125 mg Piperacillin Sod/Tazobactam (Sod 3.375 gm/ Sodium Chloride) 100 mls @ 200 mls/ hr IVPB Q6H [facility] Last Admin: 10/25/16 10:35 Dose: 200 mls/hr Levothyroxine Sodium (Synthroid) 37.5 mcg PO DAILY@0630 [facility] Last Admin: 10/25/16 06:40 Dose: 37.5 mcg Lorazepam (Ativan) 1 mg IVP Q4H PRN PRN Reason: Seizure activity Last Admin: 10/24/16 15:33 Dose: 1 mg Pantoprazole Sodium (Protonix Susp) 40 mg GT DAILY [facility] Last Admin: 10/25/16 10:33 Dose: 40 mg Rosuvastatin Calcium (Crestor) 5 mg PO HS [facility] Last Admin: 10/24/16 22:04 Dose: 5 mg Tamsulosin HCl (Flomax) 0.4 mg PO DAILY [facility] Last Admin: 10/25/16 10:33 Dose: 0.4 mg - Labs Labs: 10/21/16 06:14 10/21/16 06:14 - Constitutional Appears: Well - Head Exam Head Exam: ATRAUMATIC, NORMAL INSPECTION, NORMOCEPHALIC - Eye Exam Eye Exam: EOMI, Normal appearance, PERRL Pupil Exam: NORMAL ACCOMODATION, PERRL - ENT Exam ENT Exam: Mucous Membranes Moist, Normal Exam - Respiratory Exam Respiratory Exam: Decreased Breath Sounds - Cardiovascular Exam Cardiovascular Exam: REGULAR RHYTHM, +S1, +S2 - GI/Abdominal Exam GI & Abdominal Exam: Soft, Diminished Bowel Sounds - Rectal Exam Rectal Exam: Deferred Assessment and Plan (1) Abnormal CXR (chest x-ray) Status: Acute (2) COPD (chronic obstructive pulmonary disease) Status: Acute (3) COPD exacerbation Status: Acute (4) Cardiac disease Status: Acute (5) Depression Status: Acute (6) Diabetes Status: Acute
--- NOTE | 2016-10-25 16:36 | CP.CCUPN ---
CCU Subjective - Physician Review Events Since Last Encounter (Free Text): 10/25/16 16:36 Patient is currently anoxic encephalopathy, on ventilator. There is no next of kin. Patient is currently very poor prognostic symptoms. He is unresponsive. Awaiting for guardianship. Risk management. Overall prognosis very poor. CCU Objective - Vital Signs / Intake & Output Vital Signs (Last 4 hours): Vital Signs Pulse Resp BP Pulse Ox 10/25/16 14:50 86 25 H 143/63 96 10/25/16 13:50 82 25 H 127/55 L 96 10/25/16 12:50 85 26 H 128/51 L 96 Intake and Output (Last 8hrs): Intake & Output 10/25/16 10/25/16 10/25/16 06:59 14:59 22:59 Intake Total 340 370 30 Output Total 245 400 30 Balance 95 -30 0 Weight 127 lb Intake: Intake, IV Amount 100 100 Left Distal Port Internal 100 100 Jugular Tube Feeding 240 270 30 Output: Urine 245 400 30 Urethral (Barrett) 245 400 30 Stool 0 Other: # Bowel Movements 0 0 - Physical Exam Head: Positive for: Atraumatic, Normocephalic Pupils: Positive for: Non-Reactive, Pinpoint Ears: Positive for: Normal Neck: Negative for: JVD Respiratory/Chest: Positive for: Clear to Auscultation. Negative for: Wheezes, Rales Cardiovascular: Positive for: Regular Rate and Rhythm. Negative for: Murmurs Abdomen: Positive for: Normal Bowel Sounds Lower Extremity: Negative for: Edema Neurological: Positive for: Other (comatose) Psychiatric: Negative for: Alert - Medications Active Medications: Active Medications Generic Name Dose Route Start Last Admin Trade Name Urielq PRN Reason Stop Dose Admin Acetaminophen 650 mg 10/18/16 20:15 10/21/16 16:00 Tylenol 650mg/20.3ml Solution Ud PO 650 mg Q6 PRN Administration Pain, moderate (4-7) Apixaban 2.5 mg 10/23/16 22:00 10/25/16 10:33 Eliquis PO 2.5 mg Q12 [facility] Administration Aspirin 81 mg 09/16/16 10:30 10/25/16 10:33 Aspirin Chewable PO 81 mg DAILY [facility] Administration Divalproex Sodium 125 mg 09/16/16 10:30 10/25/16 10:33 Depakote Sprinkles PO 125 mg BID [facility] Administration Piperacillin Sod/Tazobactam 100 mls @ 200 mls/hr 10/15/16 10:00 10/25/16 16: 00 Sod 3.375 gm/ Sodium Chloride IVPB 200 mls/hr Q6H [facility] Administration Levothyroxine Sodium 37.5 mcg 09/30/16 06:30 10/25/16 06:40 Synthroid PO 37.5 mcg DAILY@0630 [facility] Administration Lorazepam 1 mg 10/22/16 11:29 10/24/16 15:33 Ativan IVP 1 mg Q4H PRN Administration Seizure activity Pantoprazole Sodium 40 mg 10/19/16 10:00 10/25/16 10:33 Protonix Susp GT 40 mg DAILY [facility] Administration Rosuvastatin Calcium 5 mg 09/29/16 22:00 10/24/16 22:04 Crestor PO 5 mg HS [facility] Administration Tamsulosin HCl 0.4 mg 09/16/16 10:30 10/25/16 10:33 Flomax PO 0.4 mg DAILY [facility] Administration - Patient Studies Lab Studies: Lab Studies 10/25/16 10/25/16 10/25/16 Range/Units 11:18 06:36 00:01 POC Glucose (mg/dL) 249 H 232 H 208 H (65-110) mg/dL 10/24/16 Range/Units 17:55 POC Glucose (mg/dL) 226 H (65-110) mg/dL Laboratory Results - last 24 hr 10/24/16 10/25/16 10/25/16 17:55 00:01 06:36 POC Glucose (mg/dL) 226 H 208 H 232 H 10/25/16 11:18 POC Glucose (mg/dL) 249 H Fingerstick Blood Sugar Results: 226 Critical Care Progress Note - Nutrition Nutrition: Nutrition Category Date Time Status NPO Diet [DIET] Diets 10/15/16 Dinner Active
[2016-10-26] MEDS: Piperacillin/Tazobact 3.375 GM in Sodium Chloride 100 ML IVPB SCH (03:40)
[2016-10-26] MEDS: Levothyroxine 75 MCG TAB PO SCH (05:49)
[2016-10-26] MEDS ORDERED: Albumin Human 25% (12.5 gm/50 ml) IV ONE (09:53)
[2016-10-26 10:08] LABS: BASO # 0.1 K/uL (0.0-0.2); BASO % 0.4 % (0.0-2.0); EOS # 0.1 K/uL (0.0-0.7); EOS % 0.4 % (0.0-4.0); HEMATOCRIT 25.7 % (35.0-51.0); LYMPH # 1.4 K/uL (1.0-4.3); MEAN CELL VOLUME 86.6 fL (80.0-94.0); MEAN CORPUSCULAR HGB CONC 31.1 g/dL (33.0-37.0); MEAN PLATELET VOLUME 9.3 fL (7.2-11.7); MONO # 0.6 K/uL (0.0-0.8); MONO % 3.1 % (0.0-10.0); PLATELET COUNT 403 K/uL (130-400); RED CELL DISTRIBUTION WIDTH 18.1 % (11.5-14.5)
[2016-10-26 10:23] LABS: ALB/GLOB RATIO 0.9 (1.0-2.1); ALKALINE PHOSPHATASE 55 U/L (38-126); ALT/SGPT 42 U/L (21-72); AST/SGOT 35 U/L (17-59); BILIRUBIN,TOTAL 0.2 mg/dL (0.2-1.3); BLOOD UREA NITROGEN 17 mg/dL (9-20); CALCIUM 7.9 mg/dl (8.6-10.4); CARBON DIOXIDE 31 mmol/L (22-30); CHLORIDE 109 mmol/L (98-107); GFR AFRICAN-AMERICAN > 60; GLUCOSE,RANDOM 164 mg/dL (75-110); MAGNESIUM 1.9 mg/dL (1.6-2.3); POTASSIUM 3.4 mmol/L (3.6-5.2); SODIUM 150 mmol/L (132-148); TOTAL PROTEIN 5.2 g/dL (6.3-8.3)
[2016-10-26] MEDS: Divalproex 125 mg Sprinkle Capsule PO SCH ×2 (10:49→17:08)
[2016-10-26] MEDS: Pantoprazole 40 mg Susp UD GT SCH (10:49)
[2016-10-26 11:08] LABS: EOSINOPHIL 1 % (0-4); NEUTROPHIL 92 % (50-75); TOTAL CELLS COUNTED 100
--- NOTE | 2016-10-26 14:28 | CP.CCUPN ---
CCU Subjective - Physician Review Subjective (Free Text): Patient seen and examined at bedside. Case discussed with house staff in the morning. Subjective history not obtained as patient is intubated and unresponsive to painful stimuli. Triple lumen catheter inserted in Left internal jugular remains c/d/i. 10/23/16 11:13 CCU Objective - Vital Signs / Intake & Output Vital Signs (Last 4 hours): Vital Signs Temp Pulse Resp BP Pulse Ox 10/26/16 14:00 82 26 H 128/49 L 95 10/26/16 13:46 81 27 H 128/49 L 95 10/26/16 13:00 86 26 H 96 10/26/16 12:46 80 27 H 130/47 L 96 10/26/16 12:23 77 28 H 97 10/26/16 12:00 98.8 F 10/26/16 10:50 126/57 L Intake and Output (Last 8hrs): Intake & Output 10/25/16 10/26/16 10/26/16 22:59 06:59 14:59 Intake Total 340 290 290 Output Total 240 240 345 Balance 100 50 -55 Weight 127 lb Intake: Intake, IV Amount 100 50 Left Distal Port Internal 100 50 Jugular Tube Feeding 240 240 240 Other 50 Output: Urine 240 240 345 Urethral (Barrett) 240 240 345 Other: # Bowel Movements 0 - Physical Exam Head: Positive for: Atraumatic, Normocephalic Pupils: Positive for: Non-Reactive, Pinpoint Ears: Positive for: Normal Neck: Negative for: JVD Respiratory/Chest: Positive for: Clear to Auscultation. Negative for: Wheezes, Rales Cardiovascular: Positive for: Regular Rate and Rhythm. Negative for: Murmurs Abdomen: Positive for: Normal Bowel Sounds Lower Extremity: Negative for: Edema Neurological: Positive for: Other (comatose) Psychiatric: Negative for: Alert - Medications Active Medications: Active Medications Generic Name Dose Route Start Last Admin Trade Name Freq PRN Reason Stop Dose Admin Acetaminophen 650 mg 10/18/16 20:15 10/21/16 16:00 Tylenol 650mg/20.3ml Solution Ud PO 650 mg Q6 PRN Administration Pain, moderate (4-7) Apixaban 2.5 mg 10/23/16 22:00 10/26/16 10:49 Eliquis PO 2.5 mg Q12 [facility]O Administration Aspirin 81 mg 09/16/16 10:30 10/26/16 10:49 Aspirin Chewable PO 81 mg DAILY [facility]O Administration Divalproex Sodium 125 mg 09/16/16 10:30 10/26/16 10:49 Depakote Sprinkles PO 125 mg BID [facility]O Administration Levetiracetam 500 mg 10/26/16 10:00 10/26/16 10:49 Keppra PO 500 mg BID [facility]O Administration Levothyroxine Sodium 37.5 mcg 09/30/16 06:30 10/26/16 05:49 Synthroid PO 37.5 mcg DAILY@0630 [facility] Administration Lorazepam 1 mg 10/22/16 11:29 10/24/16 15:33 Ativan IVP 1 mg Q4H PRN Administration Seizure activity Pantoprazole Sodium 40 mg 10/19/16 10:00 10/26/16 10:49 Protonix Susp GT 40 mg DAILY ART[facility]O Administration Primidone 50 mg 10/26/16 22:00 Mysoline PO HS ARTURO Rosuvastatin Calcium 5 mg 09/29/16 22:00 10/25/16 22:14 Crestor PO 5 mg HS ARTURO Administration Tamsulosin HCl 0.4 mg 09/16/16 10:30 10/26/16 10:50 Flomax PO 0.4 mg DAILY [facility]O Administration - Patient Studies Lab Studies: Lab Studies 10/26/16 10/26/16 10/26/16 Range/Units 12:05 10:05 10:05 WBC 20.0 H D (4.8-10.8) K/uL RBC 2.97 L (4.40-5.90) Mil/uL Hgb 8.0 L (12.0-18.0) g/dL Hct 25.7 L (35.0-51.0) % MCV 86.6 (80.0-94.0) fL MCH 27.0 (27.0-31.0) pg MCHC 31.1 L (33.0-37.0) g/dL RDW 18.1 H (11.5-14.5) % Plt Count 403 H D (130-400) K/uL MPV 9.3 (7.2-11.7) fL Neut % (Auto) 89.1 H (50.0-75.0) % Lymph % (Auto) 7.0 L (20.0-40.0) % Becker % (Auto) 3.1 (0.0-10.0) % Eos % (Auto) 0.4 (0.0-4.0) % Baso % (Auto) 0.4 (0.0-2.0) % Neut # 17.8 H (1.8-7.0) K/uL Lymph # 1.4 (1.0-4.3) K/uL Becker # 0.6 (0.0-0.8) K/uL Eos # 0.1 (0.0-0.7) K/uL Baso # 0.1 (0.0-0.2) K/uL Neutrophils % (Manual) 92 H (50-75) % Lymphocytes % (Manual) 4 L (20-40) % Monocytes % (Manual) 3 (0-10) % Eosinophils % (Manual) 1 (0-4) % Platelet Estimate Normal (NORMAL) Polychromasia Slight Hypochromasia (manual) Slight Anisocytosis (manual) Slight Ovalocytes Slight Sodium 150 H (132-148) mmol/L Potassium 3.4 L (3.6-5.2) mmol/L Chloride 109 H (98-107) mmol/L Carbon Dioxide 31 H (22-30) mmol/L Anion Gap 13 (10-20) BUN 17 (9-20) mg/dL Creatinine 0.7 L (0.8-1.5) MG/DL Est GFR ( Amer) > 60 Est GFR (Non-Af Amer) > 60 POC Glucose (mg/dL) 282 H (65-110) mg/dL Random Glucose 164 H (75-110) mg/dL Calcium 7.9 L (8.6-10.4) mg/dl Phosphorus 3.0 (2.5-4.5) mg/dL Magnesium 1.9 (1.6-2.3) mg/dL Total Bilirubin 0.2 (0.2-1.3) mg/dL AST 35 (17-59) U/L ALT 42 (21-72) U/L Alkaline Phosphatase 55 (38-126) U/L Total Protein 5.2 L (6.3-8.3) g/dL Albumin 2.4 L (3.5-5.0) g/dL Globulin 2.8 (2.2-3.9) gm/dL Albumin/Globulin Ratio 0.9 L (1.0-2.1) 10/26/16 10/26/16 10/25/16 Range/Units 07:11 06:24 23:55 WBC (4.8-10.8) K/uL RBC (4.40-5.90) Mil/uL Hgb (12.0-18.0) g/dL Hct (35.0-51.0) % MCV (80.0-94.0) fL MCH (27.0-31.0) pg MCHC (33.0-37.0) g/dL RDW (11.5-14.5) % Plt Count (130-400) K/uL MPV (7.2-11.7) fL Neut % (Auto) (50.0-75.0) % Lymph % (Auto) (20.0-40.0) % Becker % (Auto) (0.0-10.0) % Eos % (Auto) (0.0-4.0) % Baso % (Auto) (0.0-2.0) % Neut # (1.8-7.0) K/uL Lymph # (1.0-4.3) K/uL Becker # (0.0-0.8) K/uL Eos # (0.0-0.7) K/uL Baso # (0.0-0.2) K/uL Neutrophils % (Manual) (50-75) % Lymphocytes % (Manual) (20-40) % Monocytes % (Manual) (0-10) % Eosinophils % (Manual) (0-4) % Platelet Estimate (NORMAL) Polychromasia Hypochromasia (manual) Anisocytosis (manual) Ovalocytes Sodium (132-148) mmol/L Potassium (3.6-5.2) mmol/L Chloride (98-107) mmol/L Carbon Dioxide (22-30) mmol/L Anion Gap (10-20) BUN (9-20) mg/dL Creatinine (0.8-1.5) MG/DL Est GFR ( Amer) Est GFR (Non-Af Amer) POC Glucose (mg/dL) 224 H 248 H 203 H (65-110) mg/dL Random Glucose (75-110) mg/dL Calcium (8.6-10.4) mg/dl Phosphorus (2.5-4.5) mg/dL Magnesium (1.6-2.3) mg/dL Total Bilirubin (0.2-1.3) mg/dL AST (17-59) U/L ALT (21-72) U/L Alkaline Phosphatase (38-126) U/L Total Protein (6.3-8.3) g/dL Albumin (3.5-5.0) g/dL Globulin (2.2-3.9) gm/dL Albumin/Globulin Ratio (1.0-2.1) 10/25/16 Range/Units 17:45 WBC (4.8-10.8) K/uL RBC (4.40-5.90) Mil/uL Hgb (12.0-18.0) g/dL Hct (35.0-51.0) % MCV (80.0-94.0) fL MCH (27.0-31.0) pg MCHC (33.0-37.0) g/dL RDW (11.5-14.5) % Plt Count (130-400) K/uL MPV (7.2-11.7) fL Neut % (Auto) (50.0-75.0) % Lymph % (Auto) (20.0-40.0) % Becker % (Auto) (0.0-10.0) % Eos % (Auto) (0.0-4.0) % Baso % (Auto) (0.0-2.0) % Neut # (1.8-7.0) K/uL Lymph # (1.0-4.3) K/uL Becker # (0.0-0.8) K/uL Eos # (0.0-0.7) K/uL Baso # (0.0-0.2) K/uL Neutrophils % (Manual) (50-75) % Lymphocytes % (Manual) (20-40) % Monocytes % (Manual) (0-10) % Eosinophils % (Manual) (0-4) % Platelet Estimate (NORMAL) Polychromasia Hypochromasia (manual) Anisocytosis (manual) Ovalocytes Sodium (132-148) mmol/L Potassium (3.6-5.2) mmol/L Chloride (98-107) mmol/L Carbon Dioxide (22-30) mmol/L Anion Gap (10-20) BUN (9-20) mg/dL Creatinine (0.8-1.5) MG/DL Est GFR ( Amer) Est GFR (Non-Af Amer) POC Glucose (mg/dL) 208 H (65-110) mg/dL Random Glucose (75-110) mg/dL Calcium (8.6-10.4) mg/dl Phosphorus (2.5-4.5) mg/dL Magnesium (1.6-2.3) mg/dL Total Bilirubin (0.2-1.3) mg/dL AST (17-59) U/L ALT (21-72) U/L Alkaline Phosphatase (38-126) U/L Total Protein (6.3-8.3) g/dL Albumin (3.5-5.0) g/dL Globulin (2.2-3.9) gm/dL Albumin/Globulin Ratio (1.0-2.1) Laboratory Results - last 24 hr 10/25/16 10/25/16 10/26/16 17:45 23:55 06:24 WBC RBC Hgb Hct MCV MCH MCHC RDW Plt Count MPV Neut % (Auto) Lymph % (Auto) Becker % (Auto) Eos % (Auto) Baso % (Auto) Neut # Lymph # Becker # Eos # Baso # Neutrophils % (Manual) Lymphocytes % (Manual) Monocytes % (Manual) Eosinophils % (Manual) Platelet Estimate Polychromasia Hypochromasia (manual) Anisocytosis (manual) Ovalocytes Sodium Potassium Chloride Carbon Dioxide Anion Gap BUN Creatinine Est GFR ( Amer) Est GFR (Non-Af Amer) POC Glucose (mg/dL) 208 H 203 H 248 H Random Glucose Calcium Phosphorus Magnesium Total Bilirubin AST ALT Alkaline Phosphatase Total Protein Albumin Globulin Albumin/Globulin Ratio 10/26/16 10/26/16 10/26/16 07:11 10:05 10:05 WBC 20.0 H D RBC 2.97 L Hgb 8.0 L Hct 25.7 L MCV 86.6 MCH 27.0 MCHC 31.1 L RDW 18.1 H Plt Count 403 H D MPV 9.3 Neut % (Auto) 89.1 H Lymph % (Auto) 7.0 L Becker % (Auto) 3.1 Eos % (Auto) 0.4 Baso % (Auto) 0.4 Neut # 17.8 H Lymph # 1.4 Becker # 0.6 Eos # 0.1 Baso # 0.1 Neutrophils % (Manual) 92 H Lymphocytes % (Manual) 4 L Monocytes % (Manual) 3 Eosinophils % (Manual) 1 Platelet Estimate Normal Polychromasia Slight Hypochromasia (manual) Slight Anisocytosis (manual) Slight Ovalocytes Slight Sodium 150 H Potassium 3.4 L Chloride 109 H Carbon Dioxide 31 H Anion Gap 13 BUN 17 Creatinine 0.7 L Est GFR ( Amer) > 60 Est GFR (Non-Af Amer) > 60 POC Glucose (mg/dL) 224 H Random Glucose 164 H Calcium 7.9 L Phosphorus 3.0 Magnesium 1.9 Total Bilirubin 0.2 AST 35 ALT 42 Alkaline Phosphatase 55 Total Protein 5.2 L Albumin 2.4 L Globulin 2.8 Albumin/Globulin Ratio 0.9 L 10/26/16 12:05 WBC RBC Hgb Hct MCV MCH MCHC RDW Plt Count MPV Neut % (Auto) Lymph % (Auto) Becker % (Auto) Eos % (Auto) Baso % (Auto) Neut # Lymph # Becker # Eos # Baso # Neutrophils % (Manual) Lymphocytes % (Manual) Monocytes % (Manual) Eosinophils % (Manual) Platelet Estimate Polychromasia Hypochromasia (manual) Anisocytosis (manual) Ovalocytes Sodium Potassium Chloride Carbon Dioxide Anion Gap BUN Creatinine Est GFR ( Amer) Est GFR (Non-Af Amer) POC Glucose (mg/dL) 282 H Random Glucose Calcium Phosphorus Magnesium Total Bilirubin AST ALT Alkaline Phosphatase Total Protein Albumin Globulin Albumin/Globulin Ratio Fingerstick Blood Sugar Results: 282 Critical Care Progress Note - Nutrition Nutrition: Nutrition Category Date Time Status NPO Diet [DIET] Diets 10/15/16 Dinner Active Assessment/Plan - Assessment and Plan (Free Text) Assessment: S/p cardiac arrest, h/o nodular lung disease b/l, systolic and diastolic dysfunction heart failure, lbbb, dm, cerebral atrophy, weakness, was found unresponsive ROSC after 28 mins of ACLS protocol, s/p therapeutic hypothermia, remains completely unresponsive. Today 10/23/16: Clinically unchanged. Still awaiting guardianship. Started keppra 500mg po bid, Primidone 50mg po hs Neuro - S/p cardiac arrest with severe anoxic brain injury GCS 3 Case discussed with Neurology, prognosis poor Case discussed with ethics committee, case management, will attempt to attain emergent guardianship Patient previously at [facility] and will request records to locate any family contacts - ativan 1mg q4 prn for seizure activity - keppra 500mg po bid - Primidone 50mg po hs Pulm - RUL aspiration pneumonia 10/17 sputum culture: Serratia marcesans positive Continue Zosyn 3.375g iv q6 (started 10/15) and Vanco 750mg iv q12 (started 10/15 ) antibiotics Continues to be on ventilation due to anoxic brain injury Cardio - Continue Eliquis, ASA, Crestor 10/20/16 Triple lumen catheter inserted in Left internal jugular: remains in place and c/d/i. Endo - Hypothyroidism, DM Continue Synthroid GI - Tube Feed Psych - Continue Divalproex Uro - Continue Tamsulosin Continue to monitor urine output Prophylaxis - Protonix Eliquis
--- NOTE | 2016-10-26 21:56 | CP.PCM.PN ---
Subjective - Date & Time of Evaluation Date of Evaluation: 10/26/16 Time of Evaluation: 12:40 - Subjective Subjective: clinically same Objective - Vital Signs/Intake and Output Vital Signs (last 24 hours): Temp Pulse Resp BP Pulse Ox 98.5 F 95 H 17 122/53 L 97 10/26/16 20:00 10/26/16 21:00 10/26/16 21:00 10/26/16 20:46 10/26/16 21:00 Intake and Output: 10/26/16 10/27/16 18:59 06:59 Intake Total 410 90 Output Total 725 85 Balance -315 5 - Medications Medications: Current Medications Acetaminophen (Tylenol 650mg/20.3ml Solution Ud) 650 mg PO Q6 PRN PRN Reason: Pain, moderate (4-7) Last Admin: 10/21/16 16:00 Dose: 650 mg Apixaban (Eliquis) 2.5 mg PO Q12 [facility] Last Admin: 10/26/16 21:21 Dose: 2.5 mg Aspirin (Aspirin Chewable) 81 mg PO DAILY [facility] Last Admin: 10/26/16 10:49 Dose: 81 mg Divalproex Sodium (Depakote Sprinkles) 125 mg PO BID [facility] Last Admin: 10/26/16 17:08 Dose: 125 mg Levetiracetam (Keppra) 500 mg PO BID [facility] Last Admin: 10/26/16 17:10 Dose: 500 mg Levothyroxine Sodium (Synthroid) 37.5 mcg PO DAILY@0630 [facility] Last Admin: 10/26/16 05:49 Dose: 37.5 mcg Lorazepam (Ativan) 1 mg IVP Q4H PRN PRN Reason: Seizure activity Last Admin: 10/24/16 15:33 Dose: 1 mg Pantoprazole Sodium (Protonix Susp) 40 mg GT DAILY [facility] Last Admin: 10/26/16 10:49 Dose: 40 mg Primidone (Mysoline) 50 mg PO HS [facility] Last Admin: 10/26/16 21:21 Dose: 50 mg Rosuvastatin Calcium (Crestor) 5 mg PO HS [facility] Last Admin: 10/26/16 21:22 Dose: 5 mg Tamsulosin HCl (Flomax) 0.4 mg PO DAILY [facility] Last Admin: 10/26/16 10:50 Dose: 0.4 mg - Labs Labs: 10/26/16 10:05 10/26/16 10:05 - Constitutional Appears: Well - Head Exam Head Exam: ATRAUMATIC, NORMAL INSPECTION, NORMOCEPHALIC - Eye Exam Eye Exam: EOMI, Normal appearance, PERRL Pupil Exam: NORMAL ACCOMODATION, PERRL - ENT Exam ENT Exam: Mucous Membranes Moist, Normal Exam - Neck Exam Neck Exam: Full ROM, Normal Inspection. absent: Lymphadenopathy - Respiratory Exam Respiratory Exam: Decreased Breath Sounds - Cardiovascular Exam Cardiovascular Exam: REGULAR RHYTHM, +S1, +S2 - GI/Abdominal Exam GI & Abdominal Exam: Soft, Diminished Bowel Sounds - Rectal Exam Rectal Exam: Deferred Assessment and Plan (1) Abnormal CXR (chest x-ray) Status: Acute (2) COPD (chronic obstructive pulmonary disease) Status: Acute (3) COPD exacerbation Status: Acute (4) Cardiac disease Status: Acute (5) Depression Status: Acute (6) Diabetes Status: Acute
[2016-10-27] MEDS: Levothyroxine 75 MCG TAB PO SCH (06:01)
[2016-10-27] MEDS: Divalproex 125 mg Sprinkle Capsule PO SCH ×2 (10:28→17:53)
[2016-10-27] MEDS: Pantoprazole 40 mg Susp UD GT SCH (10:28)
[2016-10-27] MEDS ORDERED: HYDROmorphone 1 mg/ml ISec ONE (11:14)
--- NOTE | 2016-10-27 11:33 | CP.CCUPN ---
<Aaron Herzog - Last Filed: 10/27/16 11:26> CCU Subjective - Physician Review Subjective (Free Text): Patient seen and examined at bedside. Case discussed with house staff in the morning. Subjective history not obtained as patient is intubated and unresponsive to painful stimuli. Triple lumen catheter inserted in Left internal jugular remains c/d/i. 10/27/16 11:26 CCU Objective - Vital Signs / Intake & Output Vital Signs (Last 4 hours): Vital Signs Temp Pulse Resp BP Pulse Ox 10/27/16 11:00 81 29 H 97 10/27/16 10:46 80 28 H 134/54 L 98 10/27/16 10:00 80 28 H 97 10/27/16 09:46 80 29 H 135/55 L 97 10/27/16 09:00 81 29 H 96 10/27/16 08:46 82 30 H 131/54 L 96 10/27/16 08:00 99.2 F 81 27 H 98 10/27/16 07:46 88 29 H 140/59 L 97 Intake and Output (Last 8hrs): Intake & Output 10/26/16 10/27/16 10/27/16 22:59 06:59 14:59 Intake Total 340 340 290 Output Total 535 270 130 Balance -195 70 160 Intake: Intake, IV Amount 100 0 Left Distal Port Internal 100 0 Jugular Oral 140 Tube Feeding 240 240 150 Other 100 Output: Urine 535 270 130 Urethral (Barrett) 535 270 130 Other: # Bowel Movements 0 0 0 - Physical Exam Head: Positive for: Atraumatic, Normocephalic Pupils: Positive for: Non-Reactive, Pinpoint Ears: Positive for: Normal Neck: Negative for: JVD Respiratory/Chest: Positive for: Clear to Auscultation. Negative for: Wheezes, Rales Cardiovascular: Positive for: Regular Rate and Rhythm. Negative for: Murmurs Abdomen: Positive for: Normal Bowel Sounds Lower Extremity: Negative for: Edema Neurological: Positive for: Other (comatose) Psychiatric: Negative for: Alert - Medications Active Medications: Active Medications Generic Name Dose Route Start Last Admin Trade Name Freq PRN Reason Stop Dose Admin Acetaminophen 650 mg 10/18/16 20:15 10/21/16 16:00 Tylenol 650mg/20.3ml Solution Ud PO 650 mg Q6 PRN Administration Pain, moderate (4-7) Apixaban 2.5 mg 10/23/16 22:00 10/27/16 10:28 Eliquis PO 2.5 mg Q12 [facility]O Administration Aspirin 81 mg 09/16/16 10:30 10/27/16 10:28 Aspirin Chewable PO 81 mg DAILY [facility] Administration Divalproex Sodium 125 mg 09/16/16 10:30 10/27/16 10:28 Depakote Sprinkles PO 125 mg BID [facility] Administration Levetiracetam 500 mg 10/26/16 10:00 10/27/16 10:28 Keppra PO 500 mg BID [facility]O Administration Levothyroxine Sodium 37.5 mcg 09/30/16 06:30 10/27/16 06:01 Synthroid PO 37.5 mcg DAILY@0630 [facility] Administration Lorazepam 1 mg 10/22/16 11:29 10/24/16 15:33 Ativan IVP 1 mg Q4H PRN Administration Seizure activity Pantoprazole Sodium 40 mg 10/19/16 10:00 10/27/16 10:28 Protonix Susp GT 40 mg DAILY [facility] Administration Primidone 50 mg 10/26/16 22:00 10/26/16 21:21 Mysoline PO 50 mg HS [facility]O Administration Rosuvastatin Calcium 5 mg 09/29/16 22:00 10/26/16 21:22 Crestor PO 5 mg HS [facility]O Administration Tamsulosin HCl 0.4 mg 09/16/16 10:30 10/27/16 10:28 Flomax PO 0.4 mg DAILY [facility] Administration - Patient Studies Lab Studies: Lab Studies 10/27/16 10/27/16 10/26/16 Range/Units 06:27 01:09 17:32 POC Glucose (mg/dL) 266 H 239 H 230 H (65-110) mg/dL 10/26/16 Range/Units 12:05 POC Glucose (mg/dL) 282 H (65-110) mg/dL Laboratory Results - last 24 hr 10/26/16 10/26/16 10/27/16 12:05 17:32 01:09 POC Glucose (mg/dL) 282 H 230 H 239 H 10/27/16 06:27 POC Glucose (mg/dL) 266 H Fingerstick Blood Sugar Results: 266 Review of Systems - Review of Systems Systems not reviewed;Unavailable: Intubated Critical Care Progress Note - Vent Settings TIDAL VOLUME:: 450 RESP RATE:: 15 FIO2:: 40 PEEP:: 5 - Nutrition Nutrition: Nutrition Category Date Time Status NPO Diet [DIET] Diets 10/15/16 Dinner Active Assessment/Plan - Assessment and Plan (Free Text) Assessment: S/p cardiac arrest, h/o nodular lung disease b/l, systolic and diastolic dysfunction heart failure, lbbb, dm, cerebral atrophy, weakness, was found unresponsive ROSC after 28 mins of ACLS protocol, s/p therapeutic hypothermia, remains unresponsive. Still with some brain function as patient has slight corneal response and will breath over the ventilator. Today 10/27/16: Clinically unchanged. Applied for and now awaiting emergent guardianship. Neuro - S/p cardiac arrest with severe anoxic brain injury GCS 3 Case discussed with Neurology, prognosis poor Case discussed with ethics committee, case management, will attempt to attain emergent guardianship Patient previously at [facility] and will request records to locate any family contacts - ativan 1mg q4 prn for seizure activity - keppra 500mg po bid - Primidone 50mg po hs Pulm - RUL aspiration pneumonia sputum culture 10/15/16: Serratia marcesans positive Continue Zosyn 3.375g iv q6 (started 10/15) and Vanco 750mg iv q12 (started 10/15 ) antibiotics Continues to be on ventilation due to anoxic brain injury Cardio - Continue Eliquis, ASA, Crestor 10/20/16 Triple lumen catheter inserted in Left internal jugular: remains in place and c/d/i. Endo - Hypothyroidism, DM Continue Synthroid GI - Tube Feed glucerna Psych - Continue Divalproex Uro - Continue Tamsulosin Continue to monitor urine output Prophylaxis - Protonix 40mg gt daily Eliquis 2.5mg po q12 <James Mclean S - Last Filed: 10/27/16 18:02> CCU Objective - Vital Signs / Intake & Output Vital Signs (Last 4 hours): Vital Signs Temp Pulse Resp BP Pulse Ox 10/27/16 16:00 98.2 F 80 22 98 10/27/16 15:46 82 29 H 135/64 100 10/27/16 15:00 81 29 H 98 10/27/16 14:46 81 27 H 111/51 L 97 10/27/16 14:00 82 29 H 98 Intake and Output (Last 8hrs): Intake & Output 10/27/16 10/27/16 10/27/16 06:59 14:59 22:59 Intake Total 340 430 60 Output Total 270 220 40 Balance 70 210 20 Weight 127 lb 6.4 oz Intake: Intake, IV Amount 100 0 0 Left Distal Port Internal 100 0 0 Jugular Oral 190 Tube Feeding 240 240 60 Output: Urine 270 220 40 Urethral (Barrett) 270 220 40 Other: # Bowel Movements 0 0 0 - Medications Active Medications: Active Medications Generic Name Dose Route Start Last Admin Trade Name Freq PRN Reason Stop Dose Admin Acetaminophen 650 mg 10/18/16 20:15 10/21/16 16:00 Tylenol 650mg/20.3ml Solution Ud PO 650 mg Q6 PRN Administration Pain, moderate (4-7) Apixaban 2.5 mg 10/23/16 22:00 10/27/16 10:28 Eliquis PO 2.5 mg Q12 [facility] Administration Aspirin 81 mg 09/16/16 10:30 10/27/16 10:28 Aspirin Chewable PO 81 mg DAILY [facility] Administration Divalproex Sodium 125 mg 09/16/16 10:30 10/27/16 17:53 Depakote Sprinkles PO 125 mg BID [facility] Administration Levetiracetam 500 mg 10/26/16 10:00 10/27/16 17:53 Keppra PO 500 mg BID [facility] Administration Levothyroxine Sodium 37.5 mcg 09/30/16 06:30 10/27/16 06:01 Synthroid PO 37.5 mcg DAILY@0630 [facility] Administration Lorazepam 1 mg 10/22/16 11:29 10/24/16 15:33 Ativan IVP 1 mg Q4H PRN Administration Seizure activity Pantoprazole Sodium 40 mg 10/19/16 10:00 10/27/16 10:28 Protonix Susp GT 40 mg DAILY [facility] Administration Primidone 50 mg 10/26/16 22:00 10/26/16 21:21 Mysoline PO 50 mg HS [facility] Administration Rosuvastatin Calcium 5 mg 09/29/16 22:00 10/26/16 21:22 Crestor PO 5 mg HS [facility] Administration Tamsulosin HCl 0.4 mg 09/16/16 10:30 10/27/16 10:28 Flomax PO 0.4 mg DAILY [facility] Administration - Patient Studies Lab Studies: Lab Studies 10/27/16 10/27/16 10/27/16 Range/Units 17:40 11:36 06:27 POC Glucose (mg/dL) 187 H 244 H 266 H (65-110) mg/dL 10/27/16 Range/Units 01:09 POC Glucose (mg/dL) 239 H (65-110) mg/dL Laboratory Results - last 24 hr 10/27/16 10/27/16 10/27/16 01:09 06:27 11:36 POC Glucose (mg/dL) 239 H 266 H 244 H 10/27/16 17:40 POC Glucose (mg/dL) 187 H Critical Care Progress Note - Nutrition Nutrition: Nutrition Category Date Time Status NPO Diet [DIET] Diets 10/15/16 Dinner Active Attending/Attestation - Attestation I have personally seen and examined this patient.: Yes I have fully participated in the care of the patient.: Yes I have reviewed all pertinent clinical information: Yes Notes (Text): 10/27/16 17:58 Patient seen and examined in the intensive care unit. Case discussed with staff in the morning rounds. No change in patient condition Awaiting for guardianship Prognosis poor
--- NOTE | 2016-10-27 21:18 | CP.PCM.PN ---
Subjective - Date & Time of Evaluation Date of Evaluation: 10/27/16 Time of Evaluation: 14:20 - Subjective Subjective: clinically same Objective - Vital Signs/Intake and Output Vital Signs (last 24 hours): Temp Pulse Resp BP Pulse Ox 98.2 F 77 28 H 117/50 L 98 10/27/16 16:00 10/27/16 19:00 10/27/16 19:00 10/27/16 18:46 10/27/16 19:00 Intake and Output: 10/27/16 10/28/16 18:59 06:59 Intake Total 650 30 Output Total 245 15 Balance 405 15 - Medications Medications: Current Medications Acetaminophen (Tylenol 650mg/20.3ml Solution Ud) 650 mg PO Q6 PRN PRN Reason: Pain, moderate (4-7) Last Admin: 10/21/16 16:00 Dose: 650 mg Apixaban (Eliquis) 2.5 mg PO Q12 [facility] Last Admin: 10/27/16 10:28 Dose: 2.5 mg Aspirin (Aspirin Chewable) 81 mg PO DAILY [facility] Last Admin: 10/27/16 10:28 Dose: 81 mg Divalproex Sodium (Depakote Sprinkles) 125 mg PO BID [facility] Last Admin: 10/27/16 17:53 Dose: 125 mg Levetiracetam (Keppra) 500 mg PO BID [facility] Last Admin: 10/27/16 17:53 Dose: 500 mg Levothyroxine Sodium (Synthroid) 37.5 mcg PO DAILY@0630 [facility] Last Admin: 10/27/16 06:01 Dose: 37.5 mcg Lorazepam (Ativan) 1 mg IVP Q4H PRN PRN Reason: Seizure activity Last Admin: 10/24/16 15:33 Dose: 1 mg Pantoprazole Sodium (Protonix Susp) 40 mg GT DAILY [facility] Last Admin: 10/27/16 10:28 Dose: 40 mg Primidone (Mysoline) 50 mg PO HS [facility] Last Admin: 10/26/16 21:21 Dose: 50 mg Rosuvastatin Calcium (Crestor) 5 mg PO HS [facility] Last Admin: 10/26/16 21:22 Dose: 5 mg Tamsulosin HCl (Flomax) 0.4 mg PO DAILY [facility] Last Admin: 10/27/16 10:28 Dose: 0.4 mg - Labs Labs: 10/26/16 10:05 10/26/16 10:05 Assessment and Plan (1) Abnormal CXR (chest x-ray) Status: Acute (2) COPD (chronic obstructive pulmonary disease) Status: Acute (3) COPD exacerbation Status: Acute (4) Cardiac disease Status: Acute (5) Depression Status: Acute (6) Diabetes Status: Acute
[2016-10-27] MEDS ORDERED: Potassium Chloride 20 mEq ER Tab PO STA (21:31)
[2016-10-27] MEDS ORDERED: Potassium Chloride 20 mEq/15 ml LIQ UD PO STA (21:35)
[2016-10-28] MEDS: (Novolin R) Insulin Human Regular 100 units/ml vial SC SCH ×4 (00:48→17:53)
[2016-10-28] MEDS: Levothyroxine 75 MCG TAB PO SCH (06:11)
[2016-10-28 06:43] LABS: BASO # 0.1 K/uL (0.0-0.2); BASO % 0.4 % (0.0-2.0); EOS # 0.1 K/uL (0.0-0.7); EOS % 0.8 % (0.0-4.0); HEMATOCRIT 24.2 % (35.0-51.0); LYMPH # 1.5 K/uL (1.0-4.3); LYMPH % 10.7 % (20.0-40.0); MEAN CELL VOLUME 85.9 fL (80.0-94.0); MEAN CORPUSCULAR HGB CONC 31.4 g/dL (33.0-37.0); MEAN PLATELET VOLUME 9.8 fL (7.2-11.7); MONO # 0.7 K/uL (0.0-0.8); MONO % 4.9 % (0.0-10.0); RED CELL DISTRIBUTION WIDTH 18.3 % (11.5-14.5); WHITE BLOOD COUNT 14.2 K/uL (4.8-10.8)
[2016-10-28 06:59] LABS: CHLORIDE 107 mmol/L (98-107); SODIUM 145 mmol/L (132-148)
[2016-10-28 07:01] LABS: ALKALINE PHOSPHATASE 57 U/L (38-126); ALT/SGPT 33 U/L (21-72); AST/SGOT 43 U/L (17-59); BILIRUBIN,TOTAL 0.2 mg/dL (0.2-1.3); CARBON DIOXIDE 32 mmol/L (22-30); GFR AFRICAN-AMERICAN > 60; TOTAL PROTEIN 5.3 g/dL (6.3-8.3)
[2016-10-28 07:02] LABS: BLOOD UREA NITROGEN 18 mg/dL (9-20); CALCIUM 8.3 mg/dl (8.6-10.4); GLUCOSE,RANDOM 145 mg/dL (75-110); PHOSPHOROUS 3.4 mg/dL (2.5-4.5)
[2016-10-28 07:05] LABS: POTASSIUM 4.2 mmol/L (3.6-5.2)
[2016-10-28 07:08] LABS: ALB/GLOB RATIO 0.8 (1.0-2.1)
--- NOTE | 2016-10-28 07:45 | CP.CCUPN ---
<Aaron Herzog - Last Filed: 10/28/16 15:06> CCU Subjective - Physician Review Subjective (Free Text): Patient seen and examined at bedside. Case discussed with house staff in the morning. Subjective history not obtained as patient is intubated and unresponsive to painful stimuli. Triple lumen catheter inserted in Left internal jugular remains c/d/i. 10/28/16 15:06 CCU Objective - Vital Signs / Intake & Output Vital Signs (Last 4 hours): Vital Signs Pulse Resp BP Pulse Ox 10/28/16 06:54 87 27 H 127/60 95 10/28/16 06:00 86 29 H 99 10/28/16 05:54 129/52 L 10/28/16 05:00 85 28 H 98 10/28/16 04:54 130/56 L 10/28/16 04:00 85 30 H 96 10/28/16 03:54 119/52 L Intake and Output (Last 8hrs): Intake & Output 10/27/16 10/28/16 10/28/16 22:59 06:59 14:59 Intake Total 460 240 30 Output Total 265 415 60 Balance 195 -175 -30 Intake: Intake, IV Amount 0 0 Left Distal Port Internal 0 0 Jugular Oral 100 Tube Feeding 240 240 30 Other 120 Output: Urine 265 415 60 Urethral (Barrett) 265 415 60 Other: # Bowel Movements 0 0 0 - Physical Exam Head: Positive for: Atraumatic, Normocephalic Pupils: Positive for: Non-Reactive, Pinpoint Ears: Positive for: Normal Neck: Negative for: JVD Respiratory/Chest: Positive for: Clear to Auscultation. Negative for: Wheezes, Rales Cardiovascular: Positive for: Regular Rate and Rhythm. Negative for: Murmurs Abdomen: Positive for: Normal Bowel Sounds Lower Extremity: Negative for: Edema Neurological: Positive for: Other (comatose) Psychiatric: Negative for: Alert - Medications Active Medications: Active Medications Generic Name Dose Route Start Last Admin Trade Name Freq PRN Reason Stop Dose Admin Acetaminophen 650 mg 10/18/16 20:15 10/21/16 16:00 Tylenol 650mg/20.3ml Solution Ud PO 650 mg Q6 PRN Administration Pain, moderate (4-7) Apixaban 2.5 mg 10/23/16 22:00 10/27/16 21:35 Eliquis PO 2.5 mg Q12 [facility]O Administration Aspirin 81 mg 09/16/16 10:30 10/27/16 10:28 Aspirin Chewable PO 81 mg DAILY [facility]O Administration Divalproex Sodium 125 mg 09/16/16 10:30 10/27/16 17:53 Depakote Sprinkles PO 125 mg BID ARTURO Administration Insulin Human Regular 0 unit 10/28/16 00:00 10/28/16 07:00 Novolin R SC 2 unit Q6 ARTURO Administration Protocol Levetiracetam 500 mg 10/26/16 10:00 10/27/16 17:53 Keppra PO 500 mg BID ARTURO Administration Levothyroxine Sodium 37.5 mcg 09/30/16 06:30 10/28/16 06:11 Synthroid PO 37.5 mcg DAILY@0630 [facility] Administration Lorazepam 1 mg 10/22/16 11:29 10/24/16 15:33 Ativan IVP 1 mg Q4H PRN Administration Seizure activity Pantoprazole Sodium 40 mg 10/19/16 10:00 10/27/16 10:28 Protonix Susp GT 40 mg DAILY ART[facility]O Administration Primidone 50 mg 10/26/16 22:00 10/27/16 21:35 Mysoline PO 50 mg HS ARTURO Administration Rosuvastatin Calcium 5 mg 09/29/16 22:00 10/27/16 21:35 Crestor PO 5 mg HS ARTURO Administration Tamsulosin HCl 0.4 mg 09/16/16 10:30 10/27/16 10:28 Flomax PO 0.4 mg DAILY [facility]URO Administration - Patient Studies Lab Studies: Lab Studies 10/28/16 10/28/16 10/28/16 Range/Units 06:40 06:36 06:20 WBC 14.2 H (4.8-10.8) K/uL RBC 2.81 L (4.40-5.90) Mil/uL Hgb 7.6 L (12.0-18.0) g/dL Hct 24.2 L (35.0-51.0) % MCV 85.9 (80.0-94.0) fL MCH 27.0 (27.0-31.0) pg MCHC 31.4 L (33.0-37.0) g/dL RDW 18.3 H (11.5-14.5) % Plt Count 463 H (130-400) K/uL MPV 9.8 (7.2-11.7) fL Neut % (Auto) 83.2 H (50.0-75.0) % Lymph % (Auto) 10.7 L (20.0-40.0) % Waldo % (Auto) 4.9 (0.0-10.0) % Eos % (Auto) 0.8 (0.0-4.0) % Baso % (Auto) 0.4 (0.0-2.0) % Neut # 11.8 H (1.8-7.0) K/uL Lymph # 1.5 (1.0-4.3) K/uL Waldo # 0.7 (0.0-0.8) K/uL Eos # 0.1 (0.0-0.7) K/uL Baso # 0.1 (0.0-0.2) K/uL Sodium 145 (132-148) mmol/L Potassium 4.2 (3.6-5.2) mmol/L Chloride 107 (98-107) mmol/L Carbon Dioxide 32 H (22-30) mmol/L Anion Gap 10 (10-20) BUN 18 (9-20) mg/dL Creatinine 0.7 L (0.8-1.5) MG/DL Est GFR ( Amer) > 60 Est GFR (Non-Af Amer) > 60 POC Glucose (mg/dL) 231 H (65-110) mg/dL Random Glucose 145 H (75-110) mg/dL Calcium 8.3 L (8.6-10.4) mg/dl Phosphorus 3.4 (2.5-4.5) mg/dL Magnesium 2.0 (1.6-2.3) mg/dL Total Bilirubin 0.2 (0.2-1.3) mg/dL AST 43 (17-59) U/L ALT 33 (21-72) U/L Alkaline Phosphatase 57 (38-126) U/L Total Protein 5.3 L (6.3-8.3) g/dL Albumin 2.4 L (3.5-5.0) g/dL Globulin 2.9 (2.2-3.9) gm/dL Albumin/Globulin Ratio 0.8 L (1.0-2.1) 10/28/16 10/27/16 10/27/16 Range/Units 00:33 17:40 11:36 WBC (4.8-10.8) K/uL RBC (4.40-5.90) Mil/uL Hgb (12.0-18.0) g/dL Hct (35.0-51.0) % MCV (80.0-94.0) fL MCH (27.0-31.0) pg MCHC (33.0-37.0) g/dL RDW (11.5-14.5) % Plt Count (130-400) K/uL MPV (7.2-11.7) fL Neut % (Auto) (50.0-75.0) % Lymph % (Auto) (20.0-40.0) % Waldo % (Auto) (0.0-10.0) % Eos % (Auto) (0.0-4.0) % Baso % (Auto) (0.0-2.0) % Neut # (1.8-7.0) K/uL Lymph # (1.0-4.3) K/uL Waldo # (0.0-0.8) K/uL Eos # (0.0-0.7) K/uL Baso # (0.0-0.2) K/uL Sodium (132-148) mmol/L Potassium (3.6-5.2) mmol/L Chloride (98-107) mmol/L Carbon Dioxide (22-30) mmol/L Anion Gap (10-20) BUN (9-20) mg/dL Creatinine (0.8-1.5) MG/DL Est GFR ( Amer) Est GFR (Non-Af Amer) POC Glucose (mg/dL) 206 H 187 H 244 H (65-110) mg/dL Random Glucose (75-110) mg/dL Calcium (8.6-10.4) mg/dl Phosphorus (2.5-4.5) mg/dL Magnesium (1.6-2.3) mg/dL Total Bilirubin (0.2-1.3) mg/dL AST (17-59) U/L ALT (21-72) U/L Alkaline Phosphatase (38-126) U/L Total Protein (6.3-8.3) g/dL Albumin (3.5-5.0) g/dL Globulin (2.2-3.9) gm/dL Albumin/Globulin Ratio (1.0-2.1) Laboratory Results - last 24 hr 10/27/16 10/27/16 10/28/16 11:36 17:40 00:33 WBC RBC Hgb Hct MCV MCH MCHC RDW Plt Count MPV Neut % (Auto) Lymph % (Auto) Waldo % (Auto) Eos % (Auto) Baso % (Auto) Neut # Lymph # Waldo # Eos # Baso # Sodium Potassium Chloride Carbon Dioxide Anion Gap BUN Creatinine Est GFR ( Amer) Est GFR (Non-Af Amer) POC Glucose (mg/dL) 244 H 187 H 206 H Random Glucose Calcium Phosphorus Magnesium Total Bilirubin AST ALT Alkaline Phosphatase Total Protein Albumin Globulin Albumin/Globulin Ratio 10/28/16 10/28/16 10/28/16 06:20 06:36 06:40 WBC 14.2 H RBC 2.81 L Hgb 7.6 L Hct 24.2 L MCV 85.9 MCH 27.0 MCHC 31.4 L RDW 18.3 H Plt Count 463 H MPV 9.8 Neut % (Auto) 83.2 H Lymph % (Auto) 10.7 L Waldo % (Auto) 4.9 Eos % (Auto) 0.8 Baso % (Auto) 0.4 Neut # 11.8 H Lymph # 1.5 Waldo # 0.7 Eos # 0.1 Baso # 0.1 Sodium 145 Potassium 4.2 Chloride 107 Carbon Dioxide 32 H Anion Gap 10 BUN 18 Creatinine 0.7 L Est GFR ( Amer) > 60 Est GFR (Non-Af Amer) > 60 POC Glucose (mg/dL) 231 H Random Glucose 145 H Calcium 8.3 L Phosphorus 3.4 Magnesium 2.0 Total Bilirubin 0.2 AST 43 ALT 33 Alkaline Phosphatase 57 Total Protein 5.3 L Albumin 2.4 L Globulin 2.9 Albumin/Globulin Ratio 0.8 L Fingerstick Blood Sugar Results: 231 Review of Systems - Review of Systems Systems not reviewed;Unavailable: Intubated Critical Care Progress Note - Vent Settings TIDAL VOLUME:: 450 RESP RATE:: 15 FIO2:: 40 PEEP:: 5 - Nutrition Nutrition: Nutrition Category Date Time Status NPO Diet [DIET] Diets 10/15/16 Dinner Active Assessment/Plan - Assessment and Plan (Free Text) Assessment: S/p cardiac arrest, h/o nodular lung disease b/l, systolic and diastolic dysfunction heart failure, lbbb, dm, cerebral atrophy, weakness, was found unresponsive ROSC after 28 mins of ACLS protocol, s/p therapeutic hypothermia, remains unresponsive. Still with some brain function as patient has slight corneal response and will breath over the ventilator. Today 10/28/16: C.Diff positive, started on vanco 250mg q6. Clinically unchanged. Applied for and now awaiting emergent guardianship. Neuro - S/p cardiac arrest with severe anoxic brain injury GCS 3 Case discussed with Neurology, prognosis poor Case discussed with ethics committee, case management, will attempt to attain emergent guardianship Patient previously at [facility] and will request records to locate any family contacts - ativan 1mg q4 prn for seizure activity - keppra 500mg po bid - Primidone 50mg po hs Pulm - RUL aspiration pneumonia sputum culture 10/15/16: Serratia marcesans positive Continue Zosyn 3.375g iv q6 (started 10/15) and Vanco 750mg iv q12 (started 10/15 ) antibiotics Continues to be on ventilation due to anoxic brain injury ID: positive for C. Diff - vancomycin 250mg po q6 Cardio - Continue Eliquis, ASA, Crestor 10/20/16 Triple lumen catheter inserted in Left internal jugular: remains in place and c/d/i. Endo - Hypothyroidism, DM Continue Synthroid GI - Tube Feed glucerna Psych - Continue Divalproex Uro - Continue Tamsulosin Continue to monitor urine output Prophylaxis - Protonix 40mg gt daily Eliquis 2.5mg po q12 <James Mclean S - Last Filed: 10/28/16 15:41> CCU Objective - Vital Signs / Intake & Output Vital Signs (Last 4 hours): Vital Signs Temp Pulse Resp BP Pulse Ox 10/28/16 12:01 75 29 H 119/60 98 10/28/16 12:00 97.8 F 77 28 H 98 10/28/16 11:54 77 29 H 132/59 L 98 Intake and Output (Last 8hrs): Intake & Output 10/28/16 10/28/16 10/28/16 06:59 14:59 22:59 Intake Total 240 330 Output Total 415 340 Balance -175 -10 Weight 127 lb 12.8 oz Intake: Intake, IV Amount 0 0 Left Distal Port Internal 0 0 Jugular Oral 150 Tube Feeding 240 180 Output: Urine 415 340 Urethral (Barrett) 415 340 Other: # Bowel Movements 0 0 - Medications Active Medications: Active Medications Generic Name Dose Route Start Last Admin Trade Name Freq PRN Reason Stop Dose Admin Acetaminophen 650 mg 10/18/16 20:15 10/21/16 16:00 Tylenol 650mg/20.3ml Solution Ud PO 650 mg Q6 PRN Administration Pain, moderate (4-7) Apixaban 2.5 mg 10/23/16 22:00 10/28/16 10:33 Eliquis PO 2.5 mg Q12 ARTURO Administration Aspirin 81 mg 09/16/16 10:30 10/28/16 10:33 Aspirin Chewable PO 81 mg DAILY ARTURO Administration Divalproex Sodium 125 mg 09/16/16 10:30 10/28/16 10:33 Depakote Sprinkles PO 125 mg BID ARTURO Administration Insulin Human Regular 0 unit 10/28/16 00:00 10/28/16 12:07 Novolin R SC Not Given Q6 ARTURO Protocol Levetiracetam 500 mg 10/26/16 10:00 10/28/16 10:33 Keppra PO 500 mg BID ARTURO Administration Levothyroxine Sodium 37.5 mcg 09/30/16 06:30 10/28/16 06:11 Synthroid PO 37.5 mcg DAILY@0630 ARTURO Administration Lorazepam 1 mg 10/22/16 11:29 10/24/16 15:33 Ativan IVP 1 mg Q4H PRN Administration Seizure activity Pantoprazole Sodium 40 mg 10/19/16 10:00 10/28/16 10:33 Protonix Susp GT 40 mg DAILY ARTURO Administration Primidone 50 mg 10/26/16 22:00 10/27/16 21:35 Mysoline PO 50 mg HS ARTURO Administration Rosuvastatin Calcium 5 mg 09/29/16 22:00 10/27/16 21:35 Crestor PO 5 mg HS ARTURO Administration Tamsulosin HCl 0.4 mg 09/16/16 10:30 10/28/16 10:33 Flomax PO 0.4 mg DAILY ARTURO Administration Vancomycin HCl 500 mg 10/28/16 10:00 10/28/16 14:15 Vancocin (Oral Or Rectal Use) PO 500 mg QID ARTURO Administration - Patient Studies Lab Studies: Lab Studies 10/28/16 10/28/16 10/28/16 Range/Units Unknown 11:55 06:40 WBC 14.2 H (4.8-10.8) K/uL RBC 2.81 L (4.40-5.90) Mil/uL Hgb 7.6 L (12.0-18.0) g/dL Hct 24.2 L (35.0-51.0) % MCV 85.9 (80.0-94.0) fL MCH 27.0 (27.0-31.0) pg MCHC 31.4 L (33.0-37.0) g/dL RDW 18.3 H (11.5-14.5) % Plt Count 463 H (130-400) K/uL MPV 9.8 (7.2-11.7) fL Neut % (Auto) 83.2 H (50.0-75.0) % Lymph % (Auto) 10.7 L (20.0-40.0) % Waldo % (Auto) 4.9 (0.0-10.0) % Eos % (Auto) 0.8 (0.0-4.0) % Baso % (Auto) 0.4 (0.0-2.0) % Neut # 11.8 H (1.8-7.0) K/uL Lymph # 1.5 (1.0-4.3) K/uL Waldo # 0.7 (0.0-0.8) K/uL Eos # 0.1 (0.0-0.7) K/uL Baso # 0.1 (0.0-0.2) K/uL Sodium (132-148) mmol/L Potassium (3.6-5.2) mmol/L Chloride (98-107) mmol/L Carbon Dioxide (22-30) mmol/L Anion Gap (10-20) BUN (9-20) mg/dL Creatinine (0.8-1.5) MG/DL Est GFR ( Amer) Est GFR (Non-Af Amer) POC Glucose (mg/dL) 150 H (65-110) mg/dL Random Glucose (75-110) mg/dL Calcium (8.6-10.4) mg/dl Phosphorus (2.5-4.5) mg/dL Magnesium (1.6-2.3) mg/dL Total Bilirubin (0.2-1.3) mg/dL AST (17-59) U/L ALT (21-72) U/L Alkaline Phosphatase (38-126) U/L Total Protein (6.3-8.3) g/dL Albumin (3.5-5.0) g/dL Globulin (2.2-3.9) gm/dL Albumin/Globulin Ratio (1.0-2.1) C. difficile Ag & Toxin Positive H (NEGATIVE) 10/28/16 10/28/16 10/28/16 Range/Units 06:36 06:20 00:33 WBC (4.8-10.8) K/uL RBC (4.40-5.90) Mil/uL Hgb (12.0-18.0) g/dL Hct (35.0-51.0) % MCV (80.0-94.0) fL MCH (27.0-31.0) pg MCHC (33.0-37.0) g/dL RDW (11.5-14.5) % Plt Count (130-400) K/uL MPV (7.2-11.7) fL Neut % (Auto) (50.0-75.0) % Lymph % (Auto) (20.0-40.0) % Waldo % (Auto) (0.0-10.0) % Eos % (Auto) (0.0-4.0) % Baso % (Auto) (0.0-2.0) % Neut # (1.8-7.0) K/uL Lymph # (1.0-4.3) K/uL Waldo # (0.0-0.8) K/uL Eos # (0.0-0.7) K/uL Baso # (0.0-0.2) K/uL Sodium 145 (132-148) mmol/L Potassium 4.2 (3.6-5.2) mmol/L Chloride 107 (98-107) mmol/L Carbon Dioxide 32 H (22-30) mmol/L Anion Gap 10 (10-20) BUN 18 (9-20) mg/dL Creatinine 0.7 L (0.8-1.5) MG/DL Est GFR ( Amer) > 60 Est GFR (Non-Af Amer) > 60 POC Glucose (mg/dL) 231 H 206 H (65-110) mg/dL Random Glucose 145 H (75-110) mg/dL Calcium 8.3 L (8.6-10.4) mg/dl Phosphorus 3.4 (2.5-4.5) mg/dL Magnesium 2.0 (1.6-2.3) mg/dL Total Bilirubin 0.2 (0.2-1.3) mg/dL AST 43 (17-59) U/L ALT 33 (21-72) U/L Alkaline Phosphatase 57 (38-126) U/L Total Protein 5.3 L (6.3-8.3) g/dL Albumin 2.4 L (3.5-5.0) g/dL Globulin 2.9 (2.2-3.9) gm/dL Albumin/Globulin Ratio 0.8 L (1.0-2.1) C. difficile Ag & Toxin (NEGATIVE) 10/27/16 Range/Units 17:40 WBC (4.8-10.8) K/uL RBC (4.40-5.90) Mil/uL Hgb (12.0-18.0) g/dL Hct (35.0-51.0) % MCV (80.0-94.0) fL MCH (27.0-31.0) pg MCHC (33.0-37.0) g/dL RDW (11.5-14.5) % Plt Count (130-400) K/uL MPV (7.2-11.7) fL Neut % (Auto) (50.0-75.0) % Lymph % (Auto) (20.0-40.0) % Waldo % (Auto) (0.0-10.0) % Eos % (Auto) (0.0-4.0) % Baso % (Auto) (0.0-2.0) % Neut # (1.8-7.0) K/uL Lymph # (1.0-4.3) K/uL Waldo # (0.0-0.8) K/uL Eos # (0.0-0.7) K/uL Baso # (0.0-0.2) K/uL Sodium (132-148) mmol/L Potassium (3.6-5.2) mmol/L Chloride (98-107) mmol/L Carbon Dioxide (22-30) mmol/L Anion Gap (10-20) BUN (9-20) mg/dL Creatinine (0.8-1.5) MG/DL Est GFR ( Amer) Est GFR (Non-Af Amer) POC Glucose (mg/dL) 187 H (65-110) mg/dL Random Glucose (75-110) mg/dL Calcium (8.6-10.4) mg/dl Phosphorus (2.5-4.5) mg/dL Magnesium (1.6-2.3) mg/dL Total Bilirubin (0.2-1.3) mg/dL AST (17-59) U/L ALT (21-72) U/L Alkaline Phosphatase (38-126) U/L Total Protein (6.3-8.3) g/dL Albumin (3.5-5.0) g/dL Globulin (2.2-3.9) gm/dL Albumin/Globulin Ratio (1.0-2.1) C. difficile Ag & Toxin (NEGATIVE) Laboratory Results - last 24 hr 10/27/16 10/28/16 10/28/16 17:40 00:33 06:20 WBC RBC Hgb Hct MCV MCH MCHC RDW Plt Count MPV Neut % (Auto) Lymph % (Auto) Waldo % (Auto) Eos % (Auto) Baso % (Auto) Neut # Lymph # Waldo # Eos # Baso # Sodium Potassium Chloride Carbon Dioxide Anion Gap BUN Creatinine Est GFR ( Amer) Est GFR (Non-Af Amer) POC Glucose (mg/dL) 187 H 206 H 231 H Random Glucose Calcium Phosphorus Magnesium Total Bilirubin AST ALT Alkaline Phosphatase Total Protein Albumin Globulin Albumin/Globulin Ratio C. difficile Ag & Toxin 10/28/16 10/28/16 10/28/16 06:36 06:40 11:55 WBC 14.2 H RBC 2.81 L Hgb 7.6 L Hct 24.2 L MCV 85.9 MCH 27.0 MCHC 31.4 L RDW 18.3 H Plt Count 463 H MPV 9.8 Neut % (Auto) 83.2 H Lymph % (Auto) 10.7 L Waldo % (Auto) 4.9 Eos % (Auto) 0.8 Baso % (Auto) 0.4 Neut # 11.8 H Lymph # 1.5 Waldo # 0.7 Eos # 0.1 Baso # 0.1 Sodium 145 Potassium 4.2 Chloride 107 Carbon Dioxide 32 H Anion Gap 10 BUN 18 Creatinine 0.7 L Est GFR ( Amer) > 60 Est GFR (Non-Af Amer) > 60 POC Glucose (mg/dL) 150 H Random Glucose 145 H Calcium 8.3 L Phosphorus 3.4 Magnesium 2.0 Total Bilirubin 0.2 AST 43 ALT 33 Alkaline Phosphatase 57 Total Protein 5.3 L Albumin 2.4 L Globulin 2.9 Albumin/Globulin Ratio 0.8 L C. difficile Ag & Toxin 10/28/16 Unknown WBC RBC Hgb Hct MCV MCH MCHC RDW Plt Count MPV Neut % (Auto) Lymph % (Auto) Waldo % (Auto) Eos % (Auto) Baso % (Auto) Neut # Lymph # Waldo # Eos # Baso # Sodium Potassium Chloride Carbon Dioxide Anion Gap BUN Creatinine Est GFR ( Amer) Est GFR (Non-Af Amer) POC Glucose (mg/dL) Random Glucose Calcium Phosphorus Magnesium Total Bilirubin AST ALT Alkaline Phosphatase Total Protein Albumin Globulin Albumin/Globulin Ratio C. difficile Ag & Toxin Positive H Critical Care Progress Note - Nutrition Nutrition: Nutrition Category Date Time Status NPO Diet [DIET] Diets 10/15/16 Dinner Active Attending/Attestation - Attestation I have personally seen and examined this patient.: Yes I have fully participated in the care of the patient.: Yes I have reviewed all pertinent clinical information: Yes Notes (Text): 10/28/16 15:41 Patient seen and examined in the intensive care unit. Case discussed with house staff in the morning rounds. No change in mental status and patient condition Prognosis extremely poor Consider terminal extubation
[2016-10-28] MEDS: Vancomycin 125 MG/5 ML SOLN (ORAL/RECTAL) PO SCH ×4 (10:30→22:28)
[2016-10-28] MEDS: Pantoprazole 40 mg Susp UD GT SCH (10:33)
[2016-10-28] MEDS: Divalproex 125 mg Sprinkle Capsule PO SCH ×2 (10:33→17:52)
--- NOTE | 2016-10-28 18:57 | CP.PCM.PN ---
Subjective - Date & Time of Evaluation Date of Evaluation: 10/28/16 Time of Evaluation: 13:00 - Subjective Subjective: clinically same Objective - Vital Signs/Intake and Output Vital Signs (last 24 hours): Temp Pulse Resp BP Pulse Ox 98.7 F 75 27 H 121/49 L 94 L 10/28/16 16:00 10/28/16 18:00 10/28/16 18:00 10/28/16 17:54 10/28/16 18:00 Intake and Output: 10/28/16 10/28/16 06:59 18:59 Intake Total 480 760 Output Total 600 630 Balance -120 130 - Medications Medications: Current Medications Acetaminophen (Tylenol 650mg/20.3ml Solution Ud) 650 mg PO Q6 PRN PRN Reason: Pain, moderate (4-7) Last Admin: 10/21/16 16:00 Dose: 650 mg Apixaban (Eliquis) 2.5 mg PO Q12 [facility] Last Admin: 10/28/16 10:33 Dose: 2.5 mg Aspirin (Aspirin Chewable) 81 mg PO DAILY [facility] Last Admin: 10/28/16 10:33 Dose: 81 mg Divalproex Sodium (Depakote Sprinkles) 125 mg PO BID [facility] Last Admin: 10/28/16 17:52 Dose: 125 mg Insulin Human Regular (Novolin R) 0 unit SC Q6 [facility]URO PRN Reason: Protocol Last Admin: 10/28/16 17:53 Dose: Not Given Levetiracetam (Keppra) 500 mg PO BID [facility] Last Admin: 10/28/16 17:52 Dose: 500 mg Levothyroxine Sodium (Synthroid) 37.5 mcg PO DAILY@0630 [facility] Last Admin: 10/28/16 06:11 Dose: 37.5 mcg Lorazepam (Ativan) 1 mg IVP Q4H PRN PRN Reason: Seizure activity Last Admin: 10/24/16 15:33 Dose: 1 mg Pantoprazole Sodium (Protonix Susp) 40 mg GT DAILY [facility] Last Admin: 10/28/16 10:33 Dose: 40 mg Primidone (Mysoline) 50 mg PO HS [facility] Last Admin: 10/27/16 21:35 Dose: 50 mg Rosuvastatin Calcium (Crestor) 5 mg PO HS [facility] Last Admin: 10/27/16 21:35 Dose: 5 mg Tamsulosin HCl (Flomax) 0.4 mg PO DAILY [facility] Last Admin: 10/28/16 10:33 Dose: 0.4 mg Vancomycin HCl (Vancocin (Oral Or Rectal Use)) 500 mg PO QID [facility] Last Admin: 10/28/16 17:52 Dose: 500 mg - Labs Labs: 10/28/16 06:40 10/28/16 06:36 - Constitutional Appears: Well - Head Exam Head Exam: ATRAUMATIC, NORMAL INSPECTION, NORMOCEPHALIC - Eye Exam Eye Exam: EOMI, Normal appearance, PERRL Pupil Exam: NORMAL ACCOMODATION, PERRL - ENT Exam ENT Exam: Mucous Membranes Moist, Normal Exam - Neck Exam Neck Exam: Full ROM, Normal Inspection. absent: Lymphadenopathy - Respiratory Exam Respiratory Exam: Decreased Breath Sounds - Cardiovascular Exam Cardiovascular Exam: REGULAR RHYTHM, +S1, +S2 - GI/Abdominal Exam GI & Abdominal Exam: Soft, Diminished Bowel Sounds - Rectal Exam Rectal Exam: Deferred Assessment and Plan (1) Abnormal CXR (chest x-ray) Status: Acute (2) COPD (chronic obstructive pulmonary disease) Status: Acute (3) COPD exacerbation Status: Acute (4) Cardiac disease Status: Acute (5) Depression Status: Acute (6) Diabetes Status: Acute
[2016-10-29] MEDS ORDERED: (Novolin R) Insulin Human Regular 100 units/ml vial SC SCH
[2016-10-29] MEDS: (Novolin R) Insulin Human Regular 100 units/ml vial SC SCH ×4 (00:22→18:00)
[2016-10-29] MEDS: Levothyroxine 75 MCG TAB PO SCH (06:15)
[2016-10-29] MEDS: Pantoprazole 40 mg Susp UD GT SCH (09:20)
[2016-10-29] MEDS: Divalproex 125 mg Sprinkle Capsule PO SCH ×2 (09:21→17:53)
[2016-10-29] MEDS: Vancomycin 125 MG/5 ML SOLN (ORAL/RECTAL) PO SCH ×4 (09:23→22:53)
--- NOTE | 2016-10-29 11:34 | CP.CCUPN ---
<Aaron Herzog - Last Filed: 10/29/16 11:33> CCU Subjective - Physician Review Subjective (Free Text): Patient seen and examined at bedside. Case discussed with house staff in the morning. Subjective history not obtained as patient is intubated and unresponsive to painful stimuli. Triple lumen catheter inserted in Left internal jugular remains c/d/i. 10/29/16 11:34 CCU Objective - Vital Signs / Intake & Output Vital Signs (Last 4 hours): Vital Signs Temp Pulse Resp BP Pulse Ox 10/29/16 09:00 69 27 H 99 10/29/16 08:54 72 27 H 125/48 L 100 10/29/16 08:00 97.8 F Intake and Output (Last 8hrs): Intake & Output 10/28/16 10/29/16 10/29/16 22:59 06:59 14:59 Intake Total 540 300 140 Output Total 420 375 275 Balance 120 -75 -135 Intake: Intake, IV Amount 0 Left Distal Port Internal 0 Jugular Oral 150 Tube Feeding 240 240 90 Other 150 60 50 Output: Urine 420 375 275 Urethral (Barrett) 420 375 275 Other: # Bowel Movements 0 0 0 - Physical Exam Head: Positive for: Atraumatic, Normocephalic Pupils: Positive for: Non-Reactive, Pinpoint Ears: Positive for: Normal Neck: Negative for: JVD Respiratory/Chest: Positive for: Clear to Auscultation. Negative for: Wheezes, Rales Cardiovascular: Positive for: Regular Rate and Rhythm. Negative for: Murmurs Abdomen: Positive for: Normal Bowel Sounds Lower Extremity: Negative for: Edema Neurological: Positive for: Other (comatose) Psychiatric: Negative for: Alert - Medications Active Medications: Active Medications Generic Name Dose Route Start Last Admin Trade Name Freq PRN Reason Stop Dose Admin Acetaminophen 650 mg 10/18/16 20:15 10/21/16 16:00 Tylenol 650mg/20.3ml Solution Ud PO 650 mg Q6 PRN Administration Pain, moderate (4-7) Apixaban 2.5 mg 10/23/16 22:00 10/29/16 09:21 Eliquis PO 2.5 mg Q12 [facility]URO Administration Aspirin 81 mg 09/16/16 10:30 10/29/16 09:25 Aspirin Chewable PO 81 mg DAILY ARTURO Administration Divalproex Sodium 125 mg 09/16/16 10:30 10/29/16 09:21 Depakote Sprinkles PO 125 mg BID ARTURO Administration Insulin Human Regular 0 unit 10/28/16 00:00 10/29/16 06:17 Novolin R SC 2 unit Q6 ARTURO Administration Protocol Levetiracetam 500 mg 10/26/16 10:00 10/29/16 09:20 Keppra PO 500 mg BID ARTURO Administration Levothyroxine Sodium 37.5 mcg 09/30/16 06:30 10/29/16 06:15 Synthroid PO 37.5 mcg DAILY@0630 [facility]O Administration Lorazepam 1 mg 10/22/16 11:29 10/24/16 15:33 Ativan IVP 1 mg Q4H PRN Administration Seizure activity Pantoprazole Sodium 40 mg 10/19/16 10:00 10/29/16 09:20 Protonix Susp GT 40 mg DAILY ARTURO Administration Primidone 50 mg 10/26/16 22:00 10/28/16 22:25 Mysoline PO 50 mg HS ARTURO Administration Rosuvastatin Calcium 5 mg 09/29/16 22:00 10/28/16 22:26 Crestor PO 5 mg HS ARTURO Administration Tamsulosin HCl 0.4 mg 09/16/16 10:30 10/29/16 09:21 Flomax PO 0.4 mg DAILY [facility] Administration Vancomycin HCl 500 mg 10/28/16 10:00 10/29/16 09:23 Vancocin (Oral Or Rectal Use) PO 500 mg QID ARTURO Administration - Patient Studies Lab Studies: Lab Studies 10/29/16 10/29/16 10/28/16 Range/Units 05:19 00:18 17:49 POC Glucose (mg/dL) 217 H 177 H 187 H (65-110) mg/dL 10/28/16 Range/Units 11:55 POC Glucose (mg/dL) 150 H (65-110) mg/dL Laboratory Results - last 24 hr 10/28/16 10/28/16 10/29/16 11:55 17:49 00:18 POC Glucose (mg/dL) 150 H 187 H 177 H 10/29/16 05:19 POC Glucose (mg/dL) 217 H Fingerstick Blood Sugar Results: 217 Review of Systems - Review of Systems Systems not reviewed;Unavailable: Intubated Critical Care Progress Note - Nutrition Nutrition: Nutrition Category Date Time Status NPO Diet [DIET] Diets 10/15/16 Dinner Active Assessment/Plan - Assessment and Plan (Free Text) Assessment: S/p cardiac arrest, h/o nodular lung disease b/l, systolic and diastolic dysfunction heart failure, lbbb, dm, cerebral atrophy, weakness, was found unresponsive ROSC after 28 mins of ACLS protocol, s/p therapeutic hypothermia, remains unresponsive. Still with some brain function as patient has slight corneal response and will breath over the ventilator. Today 10/29/16: C.Diff positive 10/28/16, started on vanco 250mg q6 10/28/16. Clinically unchanged. Applied for and now awaiting emergent guardianship. Neuro - S/p cardiac arrest with severe anoxic brain injury GCS 3 Case discussed with Neurology, prognosis poor Case discussed with ethics committee, case management, will attempt to attain emergent guardianship Patient previously at [facility] and will request records to locate any family contacts - ativan 1mg q4 prn for seizure activity - keppra 500mg po bid - Primidone 50mg po hs Pulm - RUL aspiration pneumonia sputum culture 10/15/16: Serratia marcesans positive Continue Zosyn 3.375g iv q6 (started 10/15) and Vanco 750mg iv q12 (started 10/15 ) antibiotics Continues to be on ventilation due to anoxic brain injury ID: positive for C. Diff - vancomycin 250mg po q6 Cardio - Continue Eliquis, ASA, Crestor 10/20/16 Triple lumen catheter inserted in Left internal jugular: remains in place and c/d/i. Endo - Hypothyroidism, DM Continue Synthroid GI - Tube Feed glucerna Psych - Continue Divalproex Uro - Continue Tamsulosin Continue to monitor urine output Prophylaxis - Protonix 40mg gt daily Eliquis 2.5mg po q12 <CristinafYinka M - Last Filed: 10/29/16 20:22> CCU Objective - Vital Signs / Intake & Output Vital Signs (Last 4 hours): Vital Signs Temp Pulse Resp BP Pulse Ox 10/29/16 19:00 79 25 H 99 10/29/16 18:54 77 29 H 122/68 100 10/29/16 18:00 77 28 H 99 10/29/16 17:54 75 29 H 132/61 100 10/29/16 17:00 74 24 99 09/14/17 16:54 75 29 H 125/63 100 10/29/16 16:00 98.4 F 76 27 H 100 Intake and Output (Last 8hrs): Intake & Output 10/29/16 10/29/16 10/29/16 06:59 14:59 22:59 Intake Total 300 440 150 Output Total 375 525 200 Balance -75 -85 -50 Weight 127 lb 1.92 oz Intake: Tube Feeding 240 240 150 Other 60 200 Output: Urine 375 525 200 Urethral (Barrett) 375 525 200 Other: # Bowel Movements 0 1 - Medications Active Medications: Active Medications Generic Name Dose Route Start Last Admin Trade Name Freq PRN Reason Stop Dose Admin Acetaminophen 650 mg 10/18/16 20:15 10/21/16 16:00 Tylenol 650mg/20.3ml Solution Ud PO 650 mg Q6 PRN Administration Pain, moderate (4-7) Apixaban 2.5 mg 10/23/16 22:00 10/29/16 09:21 Eliquis PO 2.5 mg Q12 ARTURO Administration Aspirin 81 mg 09/16/16 10:30 10/29/16 09:25 Aspirin Chewable PO 81 mg DAILY ARTURO Administration Divalproex Sodium 125 mg 09/16/16 10:30 10/29/16 17:53 Depakote Sprinkles PO 125 mg BID ARTURO Administration Insulin Human Regular 0 unit 10/28/16 00:00 10/29/16 18:00 Novolin R SC Not Given Q6 ARTURO Protocol Levetiracetam 500 mg 10/26/16 10:00 10/29/16 17:50 Keppra PO 500 mg BID ARTURO Administration Levothyroxine Sodium 37.5 mcg 09/30/16 06:30 10/29/16 06:15 Synthroid PO 37.5 mcg DAILY@0630 [facility] Administration Lorazepam 1 mg 10/22/16 11:29 10/24/16 15:33 Ativan IVP 1 mg Q4H PRN Administration Seizure activity Pantoprazole Sodium 40 mg 10/19/16 10:00 10/29/16 09:20 Protonix Susp GT 40 mg DAILY ARTURO Administration Primidone 50 mg 10/26/16 22:00 10/28/16 22:25 Mysoline PO 50 mg HS ARTURO Administration Rosuvastatin Calcium 5 mg 09/29/16 22:00 10/28/16 22:26 Crestor PO 5 mg HS ARTURO Administration Tamsulosin HCl 0.4 mg 09/16/16 10:30 10/29/16 09:21 Flomax PO 0.4 mg DAILY ARTURO Administration Vancomycin HCl 500 mg 10/28/16 10:00 10/29/16 17:51 Vancocin (Oral Or Rectal Use) PO 500 mg QID ARTURO Administration - Patient Studies Lab Studies: Lab Studies 10/29/16 10/29/16 10/29/16 Range/Units 17:39 11:58 05:19 POC Glucose (mg/dL) 168 H 156 H 217 H (65-110) mg/dL 10/29/16 Range/Units 00:18 POC Glucose (mg/dL) 177 H (65-110) mg/dL Laboratory Results - last 24 hr 10/29/16 10/29/16 10/29/16 00:18 05:19 11:58 POC Glucose (mg/dL) 177 H 217 H 156 H 10/29/16 17:39 POC Glucose (mg/dL) 168 H Critical Care Progress Note - Nutrition Nutrition: Nutrition Category Date Time Status NPO Diet [DIET] Diets 10/15/16 Dinner Active Attending/Attestation - Attestation I have personally seen and examined this patient.: Yes I have fully participated in the care of the patient.: Yes I have reviewed all pertinent clinical information: Yes Notes (Text): 10/29/16 20:00 Today: October The Patient was seen and examined at the bedside, Medical records reviewed, and management issues were discussed and formulated with the house staff. Events reviewed Patient remained orally intubated and unresponsive to painful stimuli. Patient S/p cardiac arrest with severe anoxic brain injury Case discussed with Neurology, prognosis is grave Earlier his case discussed with ethics committee, case management, and I was told that no family available, and they will attempt to attain emergent guardianship Since patient GCS 3, multiorgan failure and S/p cardiac arrest patient care likely Medical futile at this time and all interventions are unlikely to produce any significant benefit for the patient and all Life-sustaining treatmen will have no reasonable hope of a cure or benefit to the Patient. Pain issues, skin care, head of the bed elevation, glycemic control were addressed. I have reviewed all the relevant clinical, laboratory, hemodynamic, radiographic data and medications I concur with resident's assessment and plan of care as transcribed in Dr. Herzog note.
--- NOTE | 2016-10-29 20:19 | CP.PCM.PN ---
Subjective - Date & Time of Evaluation Date of Evaluation: 10/29/16 Time of Evaluation: 13:00 - Subjective Subjective: clinically same Objective - Vital Signs/Intake and Output Vital Signs (last 24 hours): Temp Pulse Resp BP Pulse Ox 98.4 F 79 25 H 122/68 99 10/29/16 16:00 10/29/16 19:00 10/29/16 19:00 10/29/16 18:54 10/29/16 19:00 Intake and Output: 10/29/16 10/30/16 18:59 06:59 Intake Total 560 30 Output Total 690 35 Balance -130 -5 - Medications Medications: Current Medications Acetaminophen (Tylenol 650mg/20.3ml Solution Ud) 650 mg PO Q6 PRN PRN Reason: Pain, moderate (4-7) Last Admin: 10/21/16 16:00 Dose: 650 mg Apixaban (Eliquis) 2.5 mg PO Q12 [facility] Last Admin: 10/29/16 09:21 Dose: 2.5 mg Aspirin (Aspirin Chewable) 81 mg PO DAILY [facility] Last Admin: 10/29/16 09:25 Dose: 81 mg Divalproex Sodium (Depakote Sprinkles) 125 mg PO BID [facility] Last Admin: 10/29/16 17:53 Dose: 125 mg Insulin Human Regular (Novolin R) 0 unit SC Q6 [facility]URO PRN Reason: Protocol Last Admin: 10/29/16 18:00 Dose: Not Given Levetiracetam (Keppra) 500 mg PO BID [facility] Last Admin: 10/29/16 17:50 Dose: 500 mg Levothyroxine Sodium (Synthroid) 37.5 mcg PO DAILY@0630 [facility] Last Admin: 10/29/16 06:15 Dose: 37.5 mcg Lorazepam (Ativan) 1 mg IVP Q4H PRN PRN Reason: Seizure activity Last Admin: 10/24/16 15:33 Dose: 1 mg Pantoprazole Sodium (Protonix Susp) 40 mg GT DAILY [facility] Last Admin: 10/29/16 09:20 Dose: 40 mg Primidone (Mysoline) 50 mg PO HS [facility] Last Admin: 10/28/16 22:25 Dose: 50 mg Rosuvastatin Calcium (Crestor) 5 mg PO HS [facility] Last Admin: 10/28/16 22:26 Dose: 5 mg Tamsulosin HCl (Flomax) 0.4 mg PO DAILY [facility] Last Admin: 10/29/16 09:21 Dose: 0.4 mg Vancomycin HCl (Vancocin (Oral Or Rectal Use)) 500 mg PO QID [facility] Last Admin: 10/29/16 17:51 Dose: 500 mg - Labs Labs: 10/28/16 06:40 10/28/16 06:36 Assessment and Plan (1) Abnormal CXR (chest x-ray) Status: Acute (2) COPD (chronic obstructive pulmonary disease) Status: Acute (3) COPD exacerbation Status: Acute (4) Cardiac disease Status: Acute (5) Depression Status: Acute (6) Diabetes Status: Acute
[2016-10-30] MEDS: (Novolin R) Insulin Human Regular 100 units/ml vial SC SCH ×4 (01:00→18:07)
[2016-10-30] MEDS: Levothyroxine 75 MCG TAB PO SCH (07:02)
[2016-10-30] MEDS: Pantoprazole 40 mg Susp UD GT SCH (10:37)
[2016-10-30] MEDS: Divalproex 125 mg Sprinkle Capsule PO SCH ×2 (10:37→18:13)
[2016-10-30] MEDS: Vancomycin 125 MG/5 ML SOLN (ORAL/RECTAL) PO SCH ×4 (10:37→21:46)
--- NOTE | 2016-10-30 11:39 | CP.PCM.PN ---
Subjective - Date & Time of Evaluation Date of Evaluation: 10/30/16 Time of Evaluation: 10:00 - Subjective Subjective: patient is unresponsive, on full life support Objective - Vital Signs/Intake and Output Vital Signs (last 24 hours): Temp Pulse Resp BP Pulse Ox 98.9 F 71 24 142/58 L 97 10/30/16 08:00 10/30/16 08:00 10/30/16 08:00 10/30/16 08:00 10/30/16 08:00 Intake and Output: 10/30/16 10/30/16 06:59 18:59 Intake Total 360 190 Output Total 555 130 Balance -195 60 - Medications Medications: Current Medications Acetaminophen (Tylenol 650mg/20.3ml Solution Ud) 650 mg PO Q6 PRN PRN Reason: Pain, moderate (4-7) Last Admin: 10/21/16 16:00 Dose: 650 mg Apixaban (Eliquis) 2.5 mg PO Q12 [facility] Last Admin: 10/30/16 10:36 Dose: 2.5 mg Aspirin (Aspirin Chewable) 81 mg PO DAILY [facility] Last Admin: 10/30/16 10:37 Dose: 81 mg Divalproex Sodium (Depakote Sprinkles) 125 mg PO BID [facility] Last Admin: 10/30/16 10:37 Dose: 125 mg Insulin Human Regular (Novolin R) 0 unit SC Q6 [facility] PRN Reason: Protocol Last Admin: 10/30/16 07:00 Dose: 2 unit Levetiracetam (Keppra) 500 mg PO BID [facility] Last Admin: 10/30/16 10:40 Dose: 500 mg Levothyroxine Sodium (Synthroid) 37.5 mcg PO DAILY@0630 [facility] Last Admin: 10/30/16 07:02 Dose: 37.5 mcg Lorazepam (Ativan) 1 mg IVP Q4H PRN PRN Reason: Seizure activity Last Admin: 10/24/16 15:33 Dose: 1 mg Pantoprazole Sodium (Protonix Susp) 40 mg GT DAILY [facility] Last Admin: 10/30/16 10:37 Dose: 40 mg Primidone (Mysoline) 50 mg PO HS [facility] Last Admin: 10/29/16 22:52 Dose: 50 mg Rosuvastatin Calcium (Crestor) 5 mg PO HS [facility] Last Admin: 10/29/16 22:50 Dose: 5 mg Tamsulosin HCl (Flomax) 0.4 mg PO DAILY [facility] Last Admin: 10/30/16 10:40 Dose: 0.4 mg Vancomycin HCl (Vancocin (Oral Or Rectal Use)) 500 mg PO QID [facility] Last Admin: 10/30/16 10:37 Dose: 500 mg - Labs Labs: 10/28/16 06:40 10/28/16 06:36 - Constitutional Appears: In Acute Distress - Head Exam Head Exam: ATRAUMATIC, NORMAL INSPECTION, NORMOCEPHALIC - Eye Exam Eye Exam: Normal appearance - ENT Exam ENT Exam: Mucous Membranes Dry - Neck Exam Neck Exam: Normal Inspection - Respiratory Exam Additional comments: ON MV - Cardiovascular Exam Cardiovascular Exam: REGULAR RHYTHM - GI/Abdominal Exam GI & Abdominal Exam: Diminished Bowel Sounds - Rectal Exam Rectal Exam: Deferred - Extremities Exam Extremities Exam: Pedal Edema - Back Exam Back Exam: NORMAL INSPECTION - Neurological Exam Neurological Exam: Motor Sensory Deficit Neuro motor strength exam: Left Upper Extremity: 0, Right Upper Extremity: 0, Left Lower Extremity: 0, Right Lower Extremity: 0 - Psychiatric Exam Psychiatric exam: Flat Affect - Skin Skin Exam: Pallor Assessment and Plan - Assessment and Plan (Free Text) Assessment: Patient is unresponsive to stimuli, GCS of 3. patient looks extremly ill, pale, with edema to upper and lower extremities, and unable to advocate for himself. Condition and prognosis very poor. There is no quality of life and meaningfull recovery is not expected due to complex medical hx and symptoms.. Patient's condition discussed at Bioethics Committee meeting, and was concluded that patient should be allowed natural as further care is futile, and as per Policy of this hospital. The plan of care discussed between Doctor Luba Solis and Doctor Benoit. They both agreed that patient's condition was poor and diagnosis terminal . Both Doctors did not feel comfortable making final decision about extubating patient, as Doctor Luba Solis suggests that patient has a nephew who may disagree with our plan of care and make this practice unsafe. Doctor Benoit suggests that Case and Risks Management take case over and assist with finding the nephew who as per Vane, piano case maker, lives in [place]. I discussed this with Vane, and emailed Doctor Barrera, Doctor Kebede and Dre the Hospital's Buckle Attacher for further assistance with this matter. Impression * Very poor clinical presentation * Quality of life is lost * This poor man is unable to advocate for himself and his wishes for the end of life care are not known * It is believed that gardenia has a nephew, who unfortunately could not be found despite the attempts * Primary MD and ICU Director, prefers nephew is found, before any action taken Suggestion * Symptomatic therapy * Provide best possible comfort * Would wait for further legal directives before any action taken to ensure safe practice
--- NOTE | 2016-10-30 18:37 | CP.PCM.PN ---
Subjective - Date & Time of Evaluation Date of Evaluation: 10/30/16 Time of Evaluation: 12:00 - Subjective Subjective: clinically same Objective - Vital Signs/Intake and Output Vital Signs (last 24 hours): Temp Pulse Resp BP Pulse Ox 98.3 F 69 24 117/51 L 99 10/30/16 16:00 10/30/16 16:31 10/30/16 16:31 10/30/16 16:31 10/30/16 16:31 Intake and Output: 10/30/16 10/30/16 06:59 18:59 Intake Total 360 370 Output Total 555 380 Balance -195 -10 - Medications Medications: Current Medications Acetaminophen (Tylenol 650mg/20.3ml Solution Ud) 650 mg PO Q6 PRN PRN Reason: Pain, moderate (4-7) Last Admin: 10/21/16 16:00 Dose: 650 mg Apixaban (Eliquis) 2.5 mg PO Q12 [facility] Last Admin: 10/30/16 10:36 Dose: 2.5 mg Aspirin (Aspirin Chewable) 81 mg PO DAILY [facility] Last Admin: 10/30/16 10:37 Dose: 81 mg Divalproex Sodium (Depakote Sprinkles) 125 mg PO BID [facility] Last Admin: 10/30/16 18:13 Dose: 125 mg Insulin Human Regular (Novolin R) 0 unit SC Q6 [facility] PRN Reason: Protocol Last Admin: 10/30/16 18:07 Dose: Not Given Levetiracetam (Keppra) 500 mg PO BID [facility] Last Admin: 10/30/16 18:13 Dose: 500 mg Levothyroxine Sodium (Synthroid) 37.5 mcg PO DAILY@0630 [facility] Last Admin: 10/30/16 07:02 Dose: 37.5 mcg Lorazepam (Ativan) 1 mg IVP Q4H PRN PRN Reason: Seizure activity Last Admin: 10/24/16 15:33 Dose: 1 mg Pantoprazole Sodium (Protonix Susp) 40 mg GT DAILY [facility] Last Admin: 10/30/16 10:37 Dose: 40 mg Primidone (Mysoline) 50 mg PO HS [facility] Last Admin: 10/29/16 22:52 Dose: 50 mg Rosuvastatin Calcium (Crestor) 5 mg PO HS [facility] Last Admin: 10/29/16 22:50 Dose: 5 mg Tamsulosin HCl (Flomax) 0.4 mg PO DAILY [facility] Last Admin: 10/30/16 10:40 Dose: 0.4 mg Vancomycin HCl (Vancocin (Oral Or Rectal Use)) 500 mg PO QID [facility] Last Admin: 10/30/16 18:14 Dose: 500 mg - Labs Labs: 10/28/16 06:40 10/28/16 06:36 - Constitutional Appears: Well - Head Exam Head Exam: ATRAUMATIC, NORMAL INSPECTION, NORMOCEPHALIC - Eye Exam Eye Exam: EOMI, Normal appearance, PERRL Pupil Exam: NORMAL ACCOMODATION, PERRL - ENT Exam ENT Exam: Mucous Membranes Moist, Normal Exam - Neck Exam Neck Exam: Full ROM, Normal Inspection. absent: Lymphadenopathy - Respiratory Exam Respiratory Exam: Decreased Breath Sounds - Cardiovascular Exam Cardiovascular Exam: REGULAR RHYTHM, +S1, +S2 - GI/Abdominal Exam GI & Abdominal Exam: Soft, Diminished Bowel Sounds - Rectal Exam Rectal Exam: Deferred Assessment and Plan (1) Abnormal CXR (chest x-ray) Status: Acute (2) COPD (chronic obstructive pulmonary disease) Status: Acute (3) COPD exacerbation Status: Acute (4) Cardiac disease Status: Acute (5) Depression Status: Acute (6) Diabetes Status: Acute
[2016-10-31] MEDS: (Novolin R) Insulin Human Regular 100 units/ml vial SC SCH ×5 (00:16→23:48)
[2016-10-31] MEDS: Levothyroxine 75 MCG TAB PO SCH (05:55)
[2016-10-31] MEDS: Divalproex 125 mg Sprinkle Capsule PO SCH ×2 (10:52→17:28)
[2016-10-31] MEDS: Pantoprazole 40 mg Susp UD GT SCH (10:52)
[2016-10-31] MEDS: Vancomycin 125 MG/5 ML SOLN (ORAL/RECTAL) PO SCH ×3 (12:12→21:54)
--- NOTE | 2016-10-31 15:36 | CP.PCM.PN ---
Subjective - Date & Time of Evaluation Date of Evaluation: 10/31/16 Time of Evaluation: 12:20 - Subjective Subjective: clinically same Objective - Vital Signs/Intake and Output Vital Signs (last 24 hours): Temp Pulse Resp BP Pulse Ox 97.8 F 67 24 132/48 L 97 10/31/16 11:51 10/31/16 12:18 10/31/16 12:18 10/31/16 12:18 10/31/16 12:18 Intake and Output: 10/31/16 10/31/16 06:59 18:59 Intake Total 220 360 Output Total 300 750 Balance -80 -390 - Medications Medications: Current Medications Acetaminophen (Tylenol 650mg/20.3ml Solution Ud) 650 mg PO Q6 PRN PRN Reason: Pain, moderate (4-7) Last Admin: 10/21/16 16:00 Dose: 650 mg Apixaban (Eliquis) 2.5 mg PO Q12 [facility] Last Admin: 10/31/16 10:52 Dose: 2.5 mg Aspirin (Aspirin Chewable) 81 mg PO DAILY [facility] Last Admin: 10/31/16 14:15 Dose: 81 mg Divalproex Sodium (Depakote Sprinkles) 125 mg PO BID [facility] Last Admin: 10/31/16 10:52 Dose: 125 mg Insulin Human Regular (Novolin R) 0 unit SC Q6 [facility] PRN Reason: Protocol Last Admin: 10/31/16 12:46 Dose: Not Given Levetiracetam (Keppra) 500 mg PO BID [facility] Last Admin: 10/31/16 10:51 Dose: 500 mg Levothyroxine Sodium (Synthroid) 37.5 mcg PO DAILY@0630 [facility] Last Admin: 10/31/16 05:55 Dose: 37.5 mcg Lorazepam (Ativan) 1 mg IVP Q4H PRN PRN Reason: Seizure activity Last Admin: 10/24/16 15:33 Dose: 1 mg Pantoprazole Sodium (Protonix Susp) 40 mg GT DAILY [facility] Last Admin: 10/31/16 10:52 Dose: 40 mg Primidone (Mysoline) 50 mg PO HS [facility] Last Admin: 10/30/16 21:45 Dose: 50 mg Rosuvastatin Calcium (Crestor) 5 mg PO HS [facility] Last Admin: 10/30/16 21:45 Dose: 5 mg Tamsulosin HCl (Flomax) 0.4 mg PO DAILY [facility] Last Admin: 10/31/16 10:52 Dose: 0.4 mg Vancomycin HCl (Vancocin (Oral Or Rectal Use)) 500 mg PO QID [facility] Last Admin: 10/31/16 12:12 Dose: 500 mg - Labs Labs: 10/28/16 06:40 10/28/16 06:36 - Constitutional Appears: Well - Head Exam Head Exam: ATRAUMATIC, NORMAL INSPECTION, NORMOCEPHALIC - Eye Exam Eye Exam: EOMI, Normal appearance, PERRL Pupil Exam: NORMAL ACCOMODATION, PERRL - ENT Exam ENT Exam: Mucous Membranes Moist, Normal Exam - Neck Exam Neck Exam: Full ROM, Normal Inspection. absent: Lymphadenopathy - Respiratory Exam Respiratory Exam: Decreased Breath Sounds - Cardiovascular Exam Cardiovascular Exam: REGULAR RHYTHM, +S1, +S2 - GI/Abdominal Exam GI & Abdominal Exam: Soft, Diminished Bowel Sounds - Rectal Exam Rectal Exam: Deferred Assessment and Plan (1) Abnormal CXR (chest x-ray) Status: Acute (2) COPD (chronic obstructive pulmonary disease) Status: Acute (3) COPD exacerbation Status: Acute (4) Cardiac disease Status: Acute (5) Depression Status: Acute (6) Diabetes Status: Acute
[2016-11-01] MEDS: Levothyroxine 75 MCG TAB PO SCH (05:39)
[2016-11-01] MEDS: (Novolin R) Insulin Human Regular 100 units/ml vial SC SCH ×3 (05:40→17:48)
[2016-11-01] MEDS: Pantoprazole 40 mg Susp UD GT SCH (10:43)
[2016-11-01] MEDS: Vancomycin 125 MG/5 ML SOLN (ORAL/RECTAL) PO SCH ×4 (10:43→23:00)
[2016-11-01] MEDS: Divalproex 125 mg Sprinkle Capsule PO SCH ×2 (10:44→17:49)
--- NOTE | 2016-11-01 19:52 | CP.PCM.PN ---
Subjective - Date & Time of Evaluation Date of Evaluation: 11/01/16 Time of Evaluation: 12:20 Objective - Vital Signs/Intake and Output Vital Signs (last 24 hours): Temp Pulse Resp BP Pulse Ox 99 F 70 21 124/48 L 99 11/01/16 16:00 11/01/16 18:00 11/01/16 18:00 11/01/16 16:31 11/01/16 18:00 Intake and Output: 11/01/16 11/02/16 18:59 06:59 Intake Total 30 Output Total 300 Balance 30 -300 - Medications Medications: Current Medications Acetaminophen (Tylenol 650mg/20.3ml Solution Ud) 650 mg PO Q6 PRN PRN Reason: Pain, moderate (4-7) Last Admin: 10/21/16 16:00 Dose: 650 mg Apixaban (Eliquis) 2.5 mg PO Q12 [facility] Last Admin: 11/01/16 10:44 Dose: 2.5 mg Aspirin (Aspirin Chewable) 81 mg PO DAILY [facility] Last Admin: 11/01/16 10:46 Dose: 81 mg Divalproex Sodium (Depakote Sprinkles) 125 mg PO BID [facility] Last Admin: 11/01/16 17:49 Dose: Not Given Insulin Human Regular (Novolin R) 0 unit SC Q6 [facility] PRN Reason: Protocol Last Admin: 11/01/16 17:48 Dose: Not Given Levetiracetam (Keppra) 500 mg PO BID [facility] Last Admin: 11/01/16 17:50 Dose: Not Given Levothyroxine Sodium (Synthroid) 37.5 mcg PO DAILY@0630 [facility] Last Admin: 11/01/16 05:39 Dose: 37.5 mcg Lorazepam (Ativan) 1 mg IVP Q4H PRN PRN Reason: Seizure activity Last Admin: 10/24/16 15:33 Dose: 1 mg Pantoprazole Sodium (Protonix Susp) 40 mg GT DAILY [facility] Last Admin: 11/01/16 10:43 Dose: 40 mg Primidone (Mysoline) 50 mg PO HS [facility] Last Admin: 10/31/16 21:55 Dose: 50 mg Rosuvastatin Calcium (Crestor) 5 mg PO HS [facility] Last Admin: 10/31/16 21:54 Dose: 5 mg Tamsulosin HCl (Flomax) 0.4 mg PO DAILY [facility] Last Admin: 11/01/16 10:43 Dose: 0.4 mg Vancomycin HCl (Vancocin (Oral Or Rectal Use)) 500 mg PO QID [facility] Last Admin: 11/01/16 17:50 Dose: Not Given - Labs Labs: 10/28/16 06:40 10/28/16 06:36 Assessment and Plan (1) Abnormal CXR (chest x-ray) Status: Acute (2) COPD (chronic obstructive pulmonary disease) Status: Acute (3) COPD exacerbation Status: Acute (4) Cardiac disease Status: Acute (5) Depression Status: Acute (6) Diabetes Status: Acute
[2016-11-02] MEDS: (Novolin R) Insulin Human Regular 100 units/ml vial SC SCH (00:15)
[2016-11-02] MEDS: Divalproex 125 mg Sprinkle Capsule PO SCH (12:05)
[2016-11-02] MEDS: Pantoprazole 40 mg Susp UD GT SCH (12:07)
[2016-11-02] MEDS: Vancomycin 125 MG/5 ML SOLN (ORAL/RECTAL) PO SCH ×4 (12:08→22:40)
--- NOTE | 2016-11-02 18:03 | CP.PCM.PN ---
Subjective - Date & Time of Evaluation Date of Evaluation: 11/02/16 Time of Evaluation: 11:40 - Subjective Subjective: clinically same Objective - Vital Signs/Intake and Output Vital Signs (last 24 hours): Temp Pulse Resp BP Pulse Ox 97.1 F L 67 20 127/58 L 99 11/02/16 16:00 11/02/16 16:31 11/02/16 16:31 11/02/16 16:31 11/02/16 16:31 Intake and Output: 11/02/16 11/02/16 06:59 18:59 Intake Total 0 0 Output Total 300 800 Balance -300 -800 - Medications Medications: Current Medications Acetaminophen (Tylenol 650mg/20.3ml Solution Ud) 650 mg PO Q6 PRN PRN Reason: Pain, moderate (4-7) Last Admin: 10/21/16 16:00 Dose: 650 mg Pantoprazole Sodium (Protonix Susp) 40 mg GT DAILY [facility] Last Admin: 11/02/16 12:07 Dose: Not Given Vancomycin HCl (Vancocin (Oral Or Rectal Use)) 500 mg PO QID [facility] Last Admin: 11/02/16 14:02 Dose: Not Given - Labs Labs: 10/28/16 06:40 10/28/16 06:36 - Constitutional Appears: Well - Head Exam Head Exam: ATRAUMATIC, NORMAL INSPECTION, NORMOCEPHALIC - Eye Exam Eye Exam: EOMI, Normal appearance, PERRL Pupil Exam: NORMAL ACCOMODATION, PERRL - ENT Exam ENT Exam: Mucous Membranes Moist, Normal Exam - Neck Exam Neck Exam: Full ROM, Normal Inspection. absent: Lymphadenopathy - Respiratory Exam Respiratory Exam: Decreased Breath Sounds - Cardiovascular Exam Cardiovascular Exam: REGULAR RHYTHM, +S1, +S2 - GI/Abdominal Exam GI & Abdominal Exam: Soft, Diminished Bowel Sounds - Rectal Exam Rectal Exam: Deferred Assessment and Plan (1) Abnormal CXR (chest x-ray) Status: Acute (2) COPD (chronic obstructive pulmonary disease) Status: Acute (3) COPD exacerbation Status: Acute (4) Cardiac disease Status: Acute (5) Depression Status: Acute (6) Diabetes Status: Acute
[2016-11-03] MEDS: Vancomycin 125 MG/5 ML SOLN (ORAL/RECTAL) PO SCH (10:00)
[2016-11-03] MEDS: Pantoprazole 40 mg Susp UD GT SCH (10:00)
--- NOTE | 2016-11-03 21:22 | CP.PCM.PN ---
Subjective - Date & Time of Evaluation Date of Evaluation: 11/03/16 Time of Evaluation: 09:20 - Subjective Subjective: clinically same Objective - Vital Signs/Intake and Output Vital Signs (last 24 hours): Temp Pulse Resp BP Pulse Ox 97.8 F 73 21 163/69 H 94 L 11/03/16 19:41 11/03/16 19:41 11/03/16 19:41 11/03/16 19:41 11/03/16 19:41 Intake and Output: 11/03/16 11/04/16 18:59 06:59 Intake Total 0 Output Total 300 Balance -300 - Labs Labs: 10/28/16 06:40 10/28/16 06:36 - Constitutional Appears: Well - Head Exam Head Exam: ATRAUMATIC, NORMAL INSPECTION, NORMOCEPHALIC - Eye Exam Eye Exam: EOMI, Normal appearance, PERRL Pupil Exam: NORMAL ACCOMODATION, PERRL - ENT Exam ENT Exam: Mucous Membranes Moist, Normal Exam - Neck Exam Neck Exam: Full ROM, Normal Inspection. absent: Lymphadenopathy - Respiratory Exam Respiratory Exam: Decreased Breath Sounds - Cardiovascular Exam Cardiovascular Exam: REGULAR RHYTHM, +S1, +S2 - GI/Abdominal Exam GI & Abdominal Exam: Soft, Diminished Bowel Sounds - Rectal Exam Rectal Exam: Deferred Assessment and Plan (1) Abnormal CXR (chest x-ray) Status: Acute (2) COPD (chronic obstructive pulmonary disease) Status: Acute (3) COPD exacerbation Status: Acute (4) Cardiac disease Status: Acute (5) Depression Status: Acute (6) Diabetes Status: Acute
--- NOTE | 2016-11-04 17:39 | CP.PCM.PN ---
Subjective - Date & Time of Evaluation Date of Evaluation: 11/04/16 Time of Evaluation: :20 - Subjective Subjective: clinically same Objective - Vital Signs/Intake and Output Vital Signs (last 24 hours): Temp Pulse Resp BP Pulse Ox 98.7 F 86 20 145/71 83 L 11/04/16 16:00 11/04/16 16:00 11/04/16 16:00 11/04/16 16:00 11/04/16 16:00 Intake and Output: 11/04/16 11/04/16 06:59 18:59 Intake Total 0 Output Total 300 Balance -300 - Labs Labs: 10/28/16 06:40 10/28/16 06:36 - Constitutional Appears: Well - Head Exam Head Exam: ATRAUMATIC, NORMAL INSPECTION, NORMOCEPHALIC - Eye Exam Eye Exam: EOMI, Normal appearance, PERRL Pupil Exam: NORMAL ACCOMODATION, PERRL - ENT Exam ENT Exam: Mucous Membranes Moist, Normal Exam - Neck Exam Neck Exam: Full ROM, Normal Inspection. absent: Lymphadenopathy - Respiratory Exam Respiratory Exam: Decreased Breath Sounds - Cardiovascular Exam Cardiovascular Exam: REGULAR RHYTHM, +S1, +S2 - GI/Abdominal Exam GI & Abdominal Exam: Soft, Diminished Bowel Sounds - Rectal Exam Rectal Exam: Deferred Assessment and Plan (1) Abnormal CXR (chest x-ray) Status: Acute (2) COPD (chronic obstructive pulmonary disease) Status: Acute (3) COPD exacerbation Status: Acute (4) Cardiac disease Status: Acute (5) Depression Status: Acute (6) Diabetes Status: Acute
[2016-11-04 23:48] VITALS: BP 131/62; PULSE 80; RESP 22; TEMP 97.8; O2SAT 95
--- NOTE | 2016-11-05 07:10 | CP.PCM.PRO ---
Pronouncement of Note - Clinical Findings Physical Exam: No Response Verbal/Painful Stimuli, Absent Peripheral Pulses{ Carotid & Femoral}, Absent Heart & Breath Sounds, No Pupillary Light Reflex, Pupils Fixed & Dilated, Absence of Vital Signs - Pronouncement Time Time of Pronouncement of : 07:03 - Notifications Pronouncement Notifications: Atending Notified
--- NOTE | 2016-11-06 22:49 | CARD ---
APPROVED REPORT EKG Measurement Heart [id number] <Conclusion> Unusual P axis, possible ectopic atrial rhythm Left bundle branch block Abnormal ECG
== END 2016-11-05 07:03 | DRG 881 ==
LOC: C.ER 12:59 → EDBD 12:59 → C.9E 20:04 → C.5T 21:03 → OBSVTOIN 07-17 15:52 → C.5T 07-19 14:42 → C.3T 07-20 22:52 → C.9I 10-14 22:20 → C.5S 11-03 18:01
PROVIDERS: ADMIT Internal Medicine Nephrology; ATTEND Internal Medicine Nephrology
PROC: 0HBRXZZ Excision of Toe Nail, External Approach (ICD-10-PCS; 2016-10-12)
PROC: 0HBRXZZ Excision of Toe Nail, External Approach (ICD-10-PCS; 2016-10-12)
PROC: 0HBRXZZ Excision of Toe Nail, External Approach (ICD-10-PCS; 2016-10-12)
PROC: 0HBRXZZ Excision of Toe Nail, External Approach (ICD-10-PCS; 2016-10-12)
PROC: 0HBRXZZ Excision of Toe Nail, External Approach (ICD-10-PCS; 2016-10-12)
PROC: 0HBRXZZ Excision of Toe Nail, External Approach (ICD-10-PCS; 2016-10-12)
PROC: 0HBRXZZ Excision of Toe Nail, External Approach (ICD-10-PCS; 2016-10-12)
PROC: 0HBRXZZ Excision of Toe Nail, External Approach (ICD-10-PCS; 2016-10-12)
PROC: 0HBRXZZ Excision of Toe Nail, External Approach (ICD-10-PCS; 2016-10-12)
PROC: 0HBRXZZ Excision of Toe Nail, External Approach (ICD-10-PCS; 2016-10-12)
PROC: 5A1955Z Respiratory Ventilation, Greater than 96 Consecutive Hours (ICD-10-PCS; principal; 2016-10-14)
PROC: 5A12012 Performance of Cardiac Output, Single, Manual (ICD-10-PCS; 2016-10-14)
PROC: 0BH17EZ Insertion of Endotracheal Airway into Trachea, Via Natural or Artificial Opening (ICD-10-PCS; 2016-10-14)
PROC: 5A2204Z Restoration of Cardiac Rhythm, Single (ICD-10-PCS; 2016-10-14)
PROC: 6A4Z0ZZ Hypothermia, Single (ICD-10-PCS; 2016-10-14)
PROC: 06HN33Z Insertion of Infusion Device into Left Femoral Vein, Percutaneous Approach (ICD-10-PCS; 2016-10-14)
PROC: 05HN33Z Insertion of Infusion Device into Left Internal Jugular Vein, Percutaneous Approach (ICD-10-PCS; 2016-10-20)
PROC: 3E0G76Z Introduction of Nutritional Substance into Upper GI, Via Natural or Artificial Opening (ICD-10-PCS; 2016-10-26)
DX: J44.1 Chronic obstructive pulmonary disease with (acute) exacerbation (principal); G30.9 Alzheimer's disease, unspecified; F02.81 Dementia in other diseases classified elsewhere, unspecified severity, with behavioral disturbance; S32.029A Unspecified fracture of second lumbar vertebra, initial encounter for closed fracture; I11.0 Hypertensive heart disease with heart failure; I50.42 Chronic combined systolic (congestive) and diastolic (congestive) heart failure; J69.0 Pneumonitis due to inhalation of food and vomit; J15.6 Pneumonia due to other Gram-negative bacteria; G93.1 Anoxic brain damage, not elsewhere classified; I46.9 Cardiac arrest, cause unspecified; A04.7 Enterocolitis due to Clostridium difficile; E11.649 Type 2 diabetes mellitus with hypoglycemia without coma; I27.2 Other secondary pulmonary hypertension; B35.1 Tinea unguium; J84.9 Interstitial pulmonary disease, unspecified; R56.9 Unspecified convulsions; I35.1 Nonrheumatic aortic (valve) insufficiency; R45.851 Suicidal ideations; F32.9 Major depressive disorder, single episode, unspecified; M51.37 Other intervertebral disc degeneration, lumbosacral region; F05 Delirium due to known physiological condition; M19.90 Unspecified osteoarthritis, unspecified site; J84.10 Pulmonary fibrosis, unspecified; D64.9 Anemia, unspecified; E03.9 Hypothyroidism, unspecified; I44.7 Left bundle-branch block, unspecified; M48.06 Spinal stenosis, lumbar region; N40.0 Benign prostatic hyperplasia without lower urinary tract symptoms; W19.XXXA Unspecified fall, initial encounter; Z51.5 Encounter for palliative care; Y92.9 Unspecified place or not applicable; Z75.1 Person awaiting admission to adequate facility elsewhere; Z87.891 Personal history of nicotine dependence; Z79.01 Long term (current) use of anticoagulants; Z79.899 Other long term (current) drug therapy; Z91.19 Patient's noncompliance with other medical treatment and regimen; Z90.49 Acquired absence of other specified parts of digestive tract; Z79.4 Long term (current) use of insulin; Z59.0 Homelessness